=== PATIENT | female | born 1980 | race Two or more races ===

== ENCOUNTER 2017-01-13 12:22 | Inpatient (IN) | payer OTHER ==
[~2017-01-13] VITALS: Ht 172.7 cm; Wt 84.9 kg
[2017-01-13] MEDS ORDERED: PRIS50TA PO (12:37)
[2017-01-13] MEDS ORDERED: LEVO50TA5 PO (12:37)
[2017-01-13] MEDS ORDERED: ZOLP6.25 PO (12:37)
[2017-01-13 14:17] LABS: MEAN CORPUSCULAR HEMOGLOBIN 30.8 pg (27.0-33.0); MEAN CORPUSCULAR HGB CONC 34.6 g/dl (32.0-36.5); MEAN CORPUSCULAR VOLUME 89.1 fl (80.0-96.0); RED CELL DISTRIBUTION WIDTH 12.5 % (11.5-14.5); WHITE BLOOD COUNT 4.9 K/mm3 (4.0-10.0)
[2017-01-13 14:34] LABS: CONTROL LINE HCG INT CTR LINE PRESENT; METHADONE URINE NEGATIVE (NEGATIVE)
[2017-01-13 14:52] LABS: ALBUMIN 3.8 GM/DL (3.2-5.2); ALBUMIN/GLOBULIN RATIO 1.03 (1.00-1.93); ALKALINE PHOSPHATASE 55 U/L (45-117); ALT/SGPT 16 U/L (12-78); ANION GAP 10 MEQ/L (8-16); AST/SGOT 18 U/L (15-37); BILIRUBIN,DIRECT < 0.1 MG/DL (0.0-0.2); BILIRUBIN,TOTAL 0.3 MG/DL (0.2-1.0); BLOOD UREA NITROGEN 9 MG/DL (7-18); CALCIUM LEVEL 8.5 MG/DL (8.5-10.1); CARBON DIOXIDE LEVEL 23 MEQ/L (21-32); CHLORIDE LEVEL 107 MEQ/L (98-107); CREATININE FOR GFR 0.81 MG/DL (0.55-1.02); GLOMERULAR FILTRATION RATE > 60.0 (>60); GLUCOSE, FASTING 86 MG/DL (70-105); POTASSIUM SERUM 3.8 MEQ/L (3.5-5.1); SODIUM LEVEL 140 MEQ/L (136-145); TOTAL PROTEIN 7.5 GM/DL (6.4-8.2)
[2017-01-13] MEDS ORDERED: CLON0.25 PO (14:58)
[2017-01-13] MEDS ORDERED: LEVO0.1T PO (14:58)
[2017-01-13] MEDS: clonazePAM 0.5 MG TAB PO SCH (21:00)
[2017-01-13 22:57] VITALS: BP 158/98
[2017-01-13] MEDS ORDERED: MAALOX 30 ML SUSP *UDC PO PRN (23:00)
[2017-01-13] MEDS ORDERED: MOM 30ML SUSPENSION UDC PO PRN (23:00)
[2017-01-13] MEDS ORDERED: ACETAMINOPHEN TAB 650MG DOSE (2X325MG) PO PRN (23:00)
[2017-01-13 23:34] VITALS: BP 158/98
[2017-01-13] MEDS: traZODone 50 MG TAB PO PRN (23:59)
[2017-01-13] MEDS: THIAMINE 100 MG TAB PO SCH (23:59)
[2017-01-14] MEDS ORDERED: LORazepam 2 MG TAB PO PRN
[2017-01-14] MEDS: LEVOTHYROXINE 50MCG TABLET (0.05MG) PO SCH (06:39)
[2017-01-14] MEDS: clonazePAM 0.5 MG TAB PO SCH ×2 (08:47→21:00)
[2017-01-14] MEDS: MULTIVITAMINS/MINERALS THERAP 1 TAB PO SCH (08:48)
[2017-01-14] MEDS: DESVENLAFAXINE ER 50 MG TABLET (PRISTIQ) PO SCH (08:48)
[2017-01-14] MEDS: THIAMINE 100 MG TAB PO SCH ×2 (08:48→21:30)
[2017-01-14] MEDS: FOLIC ACID 1 MG TAB PO SCH (08:48)
[2017-01-14 09:18] VITALS: BP 154/93
--- NOTE | 2017-01-14 10:16 | HPEPDOC ---
Medical History and Physical Date of Admission Jan 13, 2017 at 20:00 History and Physical PCP: [facility]. ATTENDING: Dr. Jaron Menchaca HPI: 36 yo F admitted to [facility] for unspecified depressive disorder, being medically examined today. No acute medical complaints today. Denies any fevers, chills, weakness, fatigue, KISER, CP, SOB, cough, palpitations, abdominal pain, N/V /D or changes in bowel or bladder habits. 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 ROS: As noted in HPI, otherwise 11pt ROS of systems reviewed and remarkable only for LMP 12/30/16 PE: GEN: 36 yo F, appears stated age. Well-nourished, well developed. No acute distress. Alert and oriented x 3. Pleasant, interactive. HEENT: Normocephalic, atraumatic. Pupils are equal, round, and reactive to light. Extraocular movements are intact. No nystagmus appreciated. Sclera are nonicteric. Conjunctiva without injection. Nose midline. Nasal turbinates without bogginess. EACs both patent BL. TMs both visualized and melton with good cone of light, no bulging or erythema. No facial asymmetry. Moist mucous membranes. Dentition fair. Pharynx pink and moist, no cobblestoning. Neck supple , trachea midline. No lymphadenopathy or thyromegaly appreciated. CHEST: Regular rate and rhythm, +S1, +S2 LUNGS: Clear to auscultation bilaterally. No wheezes, rales, or rhonchi. Breathing appears symmetric and easy. Patient is speaking in full sentences. No accessory muscle use. ABD: Round, soft, non-tender, non-distended. +Bowel sounds throughout. No rebound or guarding. No costovertebral angle tenderness. EXT: Pulses 2+ bilaterally dorsalis pedis and radial. No lower extremity edema appreciated. SKIN: [place], dry, warm. Capillary refill <2sec. No rashes. NEURO: Alert and oriented x 3. Cranial nerves III-XII are intact. No focal deficits appreciated. EKG: Pending. A&P: 36 yo F admitted to [facility] for unspecified depressive disorder 1. Psych. Plan per Psychiatry. Obtain baseline EKG to assure the safety of psychiatric medications as they can prolong the QT interval. 2. Continue OCP 3. Hypothyroidism. Continue Synthroid 50 g daily. 4. Follow up with PCP on discharge. 5. Heidi RN present throughout exam. Vital Signs Vital Signs Date Time Temp Pulse Resp B/P (MAP) Pulse Ox O2 Delivery O2 Flow Rate FiO2 01/14/17 09:18 94 18 154/93 (113) 01/13/17 22:57 98.4 Room Air 01/13/17 19:11 100 Laboratory Data Labs 24H Laboratory Tests 2 01/13/17 13:37: Anion Gap 10, Glomerular Filtration Rate > 60.0, Calcium Level 8.5, Aspartate Amino Transf (AST/SGOT) 18, Alanine Aminotransferase (ALT/SGPT) 16, Alkaline Phosphatase 55, Total Bilirubin 0.3, Direct Bilirubin < 0.1, Total Protein 7.5, Albumin 3.8, Albumin/Globulin Ratio 1.03, Thyroid Stimulating Hormone (TSH) 2.240, Human Chorionic Gonadotropin, Qual NEGATIVE, Salicylates Level < 1.7L, Urine Amphetamines Screen NEGATIVE, Urine Benzodiazepines Screen NEGATIVE, Urine Opiates Screen NEGATIVE, Urine Methadone Screen NEGATIVE, Acetaminophen Level < 2.0L, Urine Barbiturates Screen NEGATIVE, Urine Phencyclidine Screen NEGATIVE, Urine Cocaine Metabolite Screen NEGATIVE, Urine Cannabinoids Screen NEGATIVE, Ethyl Alcohol Level 0.146H CBC/BMP Laboratory Tests 01/13/17 13:37 Red Blood Count 4.50, Mean Corpuscular Volume 89.1, Mean Corpuscular Hemoglobin 30.8, Mean Corpuscular Hemoglobin Concent 34.6, Red Cell Distribution Width 12.5 Home Medications Scheduled (Levonorgestrel/Ethinyl Es 0.1-20 mg-Mcg) 1 Tab Tab, 1 TAB PO DAILY Clonazepam (Clonazepam Odt) 0.25 Mg Tab, 0.25 MG PO BID Desvenlafaxine Succinate Monoh (Pristiq) 50 Mg Tab, 50 MG PO DAILY Levothyroxine Sodium (Synthroid) 50 Mcg Tab, 50 MCG PO DAILY Zolpidem Tartrate (Zolpidem Tartrate ER) 6.25 Mg Tab, 6.25 MG PO QHS Allergies Coded Allergies: Latex (Verified Allergy, Severe, swelling, 01/13/17) Kimberly Ayala Jan 14, 2017 10:16
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
[2017-01-14 18:00] VITALS: BP 148/90
[2017-01-14 21:30] VITALS: BP 148/90
[2017-01-14] MEDS: traZODone 50 MG TAB PO PRN (21:30)
[2017-01-15] MEDS: LEVOTHYROXINE 50MCG TABLET (0.05MG) PO SCH (06:05)
[2017-01-15 06:51] VITALS: BP 148/96
[2017-01-15] MEDS: THIAMINE 100 MG TAB PO SCH ×2 (08:35→22:17)
[2017-01-15] MEDS: FOLIC ACID 1 MG TAB PO SCH (08:35)
[2017-01-15] MEDS: DESVENLAFAXINE ER 50 MG TABLET (PRISTIQ) PO SCH (08:35)
[2017-01-15] MEDS: MULTIVITAMINS/MINERALS THERAP 1 TAB PO SCH (08:35)
[2017-01-15] MEDS: clonazePAM 0.5 MG TAB PO SCH ×2 (08:36→21:00)
[2017-01-15] MEDS ORDERED: LEVONORGESTREL PO SCH (09:00)
[2017-01-15] MEDS ORDERED: ETHINYL ESTRADIOL PO SCH (09:00)
[2017-01-15 12:49] VITALS: BP 134/85
[2017-01-15 18:00] VITALS: BP 158/80
--- NOTE | 2017-01-15 18:46 | ECGEPIP ---
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 Similar to 05/09/13. Caution would be advised with the use of any medication that may further prolong his QT interval. Electronically Signed On 01-15-2017 18:46:04 EDT by Ramin Alvarez
--- NOTE | 2017-01-15 19:13 | IPN ---
DATE: 01/15/2017 VITAL SIGNS: Temperature 96.4, pulse 74, respirations 16, blood pressure 134/85. CURRENT MEDICATIONS: - Pristiq 50 mg every morning - trazodone 50 mg at bedtime as needed HISTORY OF PRESENT ILLNESS: This is a 35-year-old white female with history of major depression. The patient reports that she had multiple stressors leading up to her hospitalization. She does like the Pristiq and she trusts it, and she has been on it for six years since her father . She feels comfortable with the trazodone for sleep as well. The patient is attending the groups. She is showing more insight into the need to set limits at home with friends and family members to reduce her stressors. MENTAL STATUS EXAMINATION: The patient is alert, oriented and cooperative. The patient is moderately anxious, mildly depressed. Not voicing any suicidal thoughts today. Insight and judgment seen improved. No current signs of dangerousness. No signs of psychosis. Grooming and hygiene appear quite good. No signs of memory deficits. DIAGNOSIS: Major depression, recurrent. PLAN: Continue present management.
[2017-01-15] MEDS: traZODone 50 MG TAB PO PRN (22:17)
[2017-01-16] MEDS: LEVOTHYROXINE 50MCG TABLET (0.05MG) PO SCH (05:59)
[2017-01-16 06:21] VITALS: BP 131/86
[2017-01-16] MEDS: FOLIC ACID 1 MG TAB PO SCH (08:23)
[2017-01-16] MEDS: DESVENLAFAXINE ER 50 MG TABLET (PRISTIQ) PO SCH (08:23)
[2017-01-16] MEDS: MULTIVITAMINS/MINERALS THERAP 1 TAB PO SCH (08:23)
[2017-01-16] MEDS: THIAMINE 100 MG TAB PO SCH (08:23)
[2017-01-16] MEDS: clonazePAM 0.5 MG TAB PO SCH ×2 (08:27→21:00)
[2017-01-16 14:36] VITALS: BP 140/86
--- NOTE | 2017-01-16 15:50 | IPN ---
DATE: 01/16/2017 VITAL SIGNS: Temperature 98.3, pulse 83, respirations 16, blood pressure 140/86. CURRENT MEDICATIONS: - Pristiq 50 mg every morning - trazodone 50 mg at bedtime as needed HISTORY OF PRESENT ILLNESS: Patient's family is coming to visit. They are quite supportive. Her boyfriend has been in to visit, too. He is also quite supportive. She reports her mood better. Patient requests her personal clothing. The order is to be given. Patient feels hopeful about the future. Patient has been attending the therapy program here on the unit. She has no other complaints. MENTAL STATUS EXAMINATION: Mood appears improved. Patient less anxious. Patient less depressed. She is not suicidal. Insight and judgment appears quite good today. No signs of dangerousness. She is not psychotic. Grooming and hygiene are good. No signs of impulsivity. DIAGNOSIS: Major depression, recurrent. PLAN: Continue present management.
[2017-01-16 18:00] VITALS: BP 150/88
[2017-01-16] MEDS: traZODone 50 MG TAB PO PRN (21:49)
[2017-01-17 06:00] VITALS: BP 141/90
[2017-01-17] MEDS: LEVOTHYROXINE 50MCG TABLET (0.05MG) PO SCH (06:01)
[2017-01-17] MEDS: DESVENLAFAXINE ER 50 MG TABLET (PRISTIQ) PO SCH (08:03)
[2017-01-17] MEDS: clonazePAM 0.5 MG TAB PO SCH ×2 (08:03→21:00)
[2017-01-17] MEDS: MULTIVITAMINS/MINERALS THERAP 1 TAB PO SCH (08:03)
[2017-01-17] MEDS: FOLIC ACID 1 MG TAB PO SCH (08:03)
--- NOTE | 2017-01-17 09:03 | MHIPNPDOC ---
[facility] Progress Note Progress Note DATE OF SERVICE: 01/17/17 HISTORY: Patient is a 36-year-old female who was brought to the emergency room by her mother and informed ER staff that she had not been able to sleep so took one dose of Ambien at 22:00, indicated medication was ineffective so took second dose at 05:00, adds she does not remember events which followed but states she made breakfast for her children and at 11:30 AM had a glass of wine, notes an additional 2 pills were missing from med vial and she is uncertain as to whether she took those as well. Per ER report, patient's mother indicated that patient experiences challenges related to alcohol use and she expressed concern for patient's children. According to patient's family, patient is a poor historian and "gets angry and mean very quickly." Patient denies history of suicide attempts and denies history of prior psychiatric hospitalization. Manager Meeting met with patient today to assess treatment progress on inpatient unit. Patient reports current anxiety level of 2/10, denies depression, denies suicidal and homicidal ideation, denies auditory and visual hallucinations, denies urge to engage in self-injurious behavior, and denies eating disorder related symptoms. Patient had meeting with CPS today and was informed of concerns related to children being in her care, verbalizes some insight as to seriousness of her behavior and events which preceded current hospitalization. Patient states she is sleeping well, indicates appetite is stable, notes concentration and focus and energy levels have improved. Patient denies symptoms of craving or withdrawal and has not utilized Klonopin or Ativan over the weekend. Manager Meeting was informed by LUIS the patient's EKG indicates prolonged QTc. Patient indicates Pristiq continues to work well, denies medication side effects, denies need for dosing adjustment, declines medication change. Patient was in agreement with discontinuation of trazodone and is requesting Rozerem trial in effort to continue improved sleep. Patient is asymptomatic, denies headache, chest pain, dizziness, palpitations, and shortness of breath. Potential risks of psychotropic medications were reviewed with patient who verbalized understanding and indicates symptoms of palpitation preexisted psychotropic medication trial. Patient denies symptoms of physical pain and presents with no signs of acute distress at time of interaction. I-Stop review completed on admission, patient regularly fills prescriptions for Ambien and Klonopin and periodically fills prescriptions for Xanax, tramadol and Tylenol with codeine. Patient states she does not take aforementioned medications regularly. VITALS: See below NEW TEST RESULTS: 01/15/17 and glucose 113 MEDICAL/SURGICAL HISTORY: ITP platelet disorder, hypothyroidism, GERD. 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 Patient denies history of seizure or head injury. Patient states she recently experienced a miscarriage and has a history of obesity. Patient also indicates her physician is monitoring her for hypertension, has not been diagnosed and has not been receiving treatment for hypertension Labs on admission indicated low PLT. UDS negative. Patient was educated on risks of psychotropic medications to unborn child should she become while taking medications and was strongly encouraged to utilize control while taking psychotropic medications. EToH 0.146 01/14/17 EKG normal sinus rhythm with isolated PVC marginal inferoapical ST/T wave abnormalities and QT prolongation. Similar to 05/09/13. Caution would be advised to use of any medication that may further prolong his QT interval. Clinical consultation completed and results reviewed patient. Patient is asymptomatic, indicates she wants to remain on Pristiq but is agreeable to discontinuation of trazodone and Rozerem trial, verbalizes awareness that she will need to follow up with outpatient provider for ongoing monitoring. CURRENT MEDICATIONS: See below MENTAL STATUS EXAMINATION: General appearance: Patient is a 36-year old female, who is pleasant and cooperative, engageable, makes improved eye contact, appears disheveled, is dressed in hospital clothing, ambulates with steady gait, appears stated age. Speech: Of normal rate, mildly pressured, normal volume, coherent, less rehearsed today. Thought processes: Linear, logical, rational, goal-directed Thought content: Rational, logical, mild tangentiality, no paranoia or perseveration Abstract reasoning and computation: Appear intact Description of associations: Intact Description of abnormal or psychotic thoughts: Denies suicidal or homicidal ideation, denies auditory or visual hallucinations, does not appear to be responding to internal stimuli, does not endorse bizarre or paranoid ideation, denies preoccupation with violence Judgment: Limited, some improvement noted Insight: Fair, some improvement noted Orientation: A and O 3 Recent and remote memory: Appeared intact with exception of events which preceded current hospitalization Attention span and concentration: Adequate Fund of knowledge: Adequate Mood: "Much better, and I really miss my kids." Patient appears less anxious and less depressed, no mood lability noted Affect: Full range, congruent with mood DIAGNOSES: Unspecified depressive disorder, polysubstance use disorder, rule out major depressive disorder, rule out anxiety disorder, rule out OCD, rule out substance-induced mood disorder, rule out psychiatric disorder due to adverse drug reaction, rule out bipolar disorder. Bulimia by history ASSESSMENT: Patient appears to be adjusting to unit, has been visible, engaging well with staff and peers, participating in unit activities, and has presented with no behavior management challenges. Patient continues to rationalize events and behavior which led to current hospitalization, displays less minimization today regarding substance use/abuse , expresses increased insight pertaining to behavior and potential impact on family, children, career. Patient remains unable to remember events which preceded current hospitalization, appears to be placing much of the blame on outpatient provider, states today she wants new provider at time of discharge. Patient has not needed to utilize benzodiazepines over weekend, indicates Pristiq remains effective, reiterates she has been taking for 6 years, denies medication side effects, denies need for dosing adjustment, and denies desire to change medication. Results of recent EKG were reviewed at length with patient verbalizes understanding and agrees to follow-up with outpatient provider. Patient is agreeable to discontinuation of trazodone due to risk for prolonged QTc, will trial Rozerem PRN for sleep. Patient denies symptoms of craving or withdrawal, denies irritability, agitation, impulsivity, and mood lability. Patient denies current suicidal or homicidal ideation and verbalizes awareness of how to access supportive services on the unit if needed. Will continue to monitor patient's response to medications and will monitor for medication side effects. Will also evaluate patient's safety and discharge readiness. Patient informs assembly instructions writer today that patient's boyfriend and mother have removed all alcohol and unused medications from the home reiterates today that when prepared for discharge she would like to return home with boyfriend and children, is agreeable to participating in outpatient psychotherapy and medication management services. MANAGEMENT PLAN: Discontinue trazodone. Continue Pristiq 50 mg po q am. Initiate Rozerem 8 mg po hs PRN insomnia Maintain safety precautions Patient to attend groups and participate in unit programming to develop coping strategies Engage patient in discharge planning process and arrange meeting with support system to ensure safe discharge planning when appropriate Patient to follow up with PCM regarding recent EKG results and any other health concerns within 5-7 days of discharge TIME SPENT: 35 minutes Vital Signs Vital Signs Date Time Temp Pulse Resp B/P (MAP) Pulse Ox O2 Delivery O2 Flow Rate FiO2 01/17/17 06:00 98.3 92 16 141/90 (107) 01/14/17 18:00 Room Air 01/13/17 19:11 100 Current Medications Current Medications Acetaminophen (Tylenol Tab) 650 mg Q6HP PRN PO HEADACHE or DISCOMFORT; Start at 23:00; Stop 02/12/17 at 22:59 Al Hydrox/Mg Hydrox/Simethicone (Mylanta) 30 ml Q4HP PRN PO HEARTBURN/ INDIGESTION; Start 01/13/17 at 23:00; Stop 02/12/17 at 22:59 Clonazepam (KlonoPIN) 0.25 mg BID PO Last administered on 01/14/17 08:47; Start 01/13/17 at 21:00; Stop 01/20/17 at 20:59 Desvenlafaxine Succinate (Pristiq) 50 mg DAILY PO Last administered on 08:03; Start 01/14/17 at 09:00; Stop 02/13/17 at 08:59 Folic Acid (Folic Acid) 1 mg DAILY PO Last administered on 01/17/17 08:03; Start 01/14/17 at 09:00; Stop 02/13/17 at 08:59 Home Med (Med Rec Complete!) ASDIRECTED XX ; Start 01/13/17 at 15:00; Stop at 15:02; Status DC Levothyroxine Sodium (Synthroid) 50 mcg DAILY@06 PO Last administered on 06:01; Start 01/14/17 at 06:00; Stop 02/13/17 at 05:59 Lorazepam (Ativan) 2 mg ASDIRECTED PRN PO SEE PROTOCOL; Start 01/14/17 at 00:00 ; Stop 01/21/17 at 00:00 Magnesium Hydroxide (Milk Of Magnesia) 30 ml DAILYPRN PRN PO CONSTIPATION; Start 01/13/17 at 23:00; Stop 02/12/17 at 22:59 Miscellaneous (Unresolved Patient Own Med Order) SEE LABEL COMMENTS UNRESOLVED XX ; Start 01/14/17 at 00:01; Stop 02/13/17 at 00:00 Multivitamins (Theragram-M) 1 tab DAILY PO Last administered on 01/17/17 08:03 ; Start 01/14/17 at 09:00; Stop 02/13/17 at 08:59 Patient Own Medication (Patient'S Own Med) 1 ea DAILY PO ; Start 01/15/17 at 09: 00; Stop 02/14/17 at 08:59; Status UNV Thiamine HCl (Thiamine HCl) 100 mg BID PO Last administered on 01/16/17 08:23 ; Start 01/13/17 at 21:00; Stop 01/16/17 at 09:01; Status DC Trazodone HCl (Desyrel) 50 mg QHSP PRN PO INSOMNIA Last administered on 21:49; Start 01/13/17 at 23:00; Stop 02/12/17 at 22:59 Allergies Coded Allergies: Latex (Verified Allergy, Severe, swelling, 01/13/17) Yumiko Mariscal Jan 17, 2017 09:02
[2017-01-17 12:00] VITALS: BP 138/88
[2017-01-17 18:00] VITALS: BP 122/92
--- NOTE | 2017-01-17 19:28 | ECGEPIP ---
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
[2017-01-17] MEDS: RAMELTEON 8 MG TAB (ROZEREM) PO PRN (21:51)
[2017-01-18] MEDS: LEVOTHYROXINE 50MCG TABLET (0.05MG) PO SCH (06:03)
[2017-01-18 06:41] VITALS: BP 137/85
[2017-01-18] MEDS: FOLIC ACID 1 MG TAB PO SCH (08:30)
[2017-01-18] MEDS: MULTIVITAMINS/MINERALS THERAP 1 TAB PO SCH (08:30)
[2017-01-18] MEDS: DESVENLAFAXINE ER 50 MG TABLET (PRISTIQ) PO SCH (08:30)
[2017-01-18] MEDS: clonazePAM 0.5 MG TAB PO SCH (08:31)
[2017-01-18 12:24] VITALS: BP 131/97
--- NOTE | 2017-01-18 17:27 | MHIPNPDOC ---
[facility] Progress Note Progress Note DATE OF SERVICE: 01/18/17 HISTORY: Patient is a 36-year-old female who was brought to the emergency room by her mother and informed ER staff that she had not been able to sleep so took one dose of Ambien at 22:00, indicated medication was ineffective so took second dose at 05:00, adds she does not remember events which followed but states she made breakfast for her children and at 11:30 AM had a glass of wine, notes an additional 2 pills were missing from med vial and she is uncertain as to whether she took those as well. Per ER report, patient's mother indicated that patient experiences challenges related to alcohol use and she expressed concern for patient's children. According to patient's family, patient is a poor historian and "gets angry and mean very quickly." Patient denies history of suicide attempts and denies history of prior psychiatric hospitalization. Real Estate Coordinator met with patient today to assess treatment progress on inpatient unit. Patient denies symptoms of anxiety and depression, denies suicidal and homicidal ideation, denies auditory and visual hallucinations, denies urge to engage in self-injurious behavior, and denies eating disorder-related symptoms. Patient is able to express feelings related to recent CPS meeting, verbalizes sincere concern regarding recent events involving children, states she is motivated to do whatever CPS asks in order for her to regain custody of her children. Patient today is able to verbalize insight as to seriousness of her behavior and events which preceded current hospitalization. Patient indicates she is sleeping well with Rozerem, notes appetite, concentration and focus, and energy level are stable. Patient denies symptoms of craving or withdrawal and has not utilized Klonopin or Ativan over the weekend. Real Estate Coordinator was informed by LUIS the patient's EKG indicates prolonged QTc, trazodone was discontinued. Patient indicates Pristiq continues to work well, denies medication side effects, denies need for dosing adjustment, declines medication change, verbalizes possible association with prolonged QTC. Patient is asymptomatic, denies headache, chest pain, dizziness, palpitations, and shortness of breath. Potential risks of psychotropic medications were reviewed with patient who verbalized understanding and indicates symptoms of palpitation preexisted psychotropic medication trial. Patient denies symptoms of physical pain and presents with no signs of acute distress at time of interaction. I-Stop review completed on admission, patient regularly fills prescriptions for Ambien and Klonopin and periodically fills prescriptions for Xanax, tramadol and Tylenol with codeine. Patient states she does not take aforementioned medications regularly. VITALS: See below NEW TEST RESULTS: 01/15/17 and glucose 113 MEDICAL/SURGICAL HISTORY: ITP platelet disorder, hypothyroidism, GERD. 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 Patient denies history of seizure or head injury. Patient states she recently experienced a miscarriage and has a history of obesity. Patient also indicates her physician is monitoring her for hypertension, has not been diagnosed and has not been receiving treatment for hypertension Labs on admission indicated low PLT. UDS negative. Patient was educated on risks of psychotropic medications to unborn child should she become while taking medications and was strongly encouraged to utilize control while taking psychotropic medications. EToH 0.146 01/14/17 EKG normal sinus rhythm with isolated PVC marginal inferoapical ST/T wave abnormalities and QT prolongation. Similar to 05/09/13. Caution would be advised to use of any medication that may further prolong his QT interval. Clinical consultation completed and results reviewed patient. Patient is asymptomatic, indicates she wants to remain on Pristiq but is agreeable to discontinuation of trazodone and Rozerem initiation, verbalizes awareness that she will need to follow up with outpatient provider for ongoing monitoring. 01/17/17 EKG sinus rhythm normal CURRENT MEDICATIONS: See below MENTAL STATUS EXAMINATION: General appearance: Patient is a 36-year old female, who is pleasant and cooperative, engageable, makes good eye contact, and exhibits adequate personal hygiene, is dressed in own clothing, ambulates with steady gait, appears stated age. Speech: Of normal rate, rhythm, volume, coherent, spontaneous, does not sound rehearsed today Thought processes: Linear, logical, rational, goal-directed Thought content: Rational, logical, mild intermittent tangentiality, no paranoia or perseveration Abstract reasoning and computation: Appear intact Description of associations: Intact Description of abnormal or psychotic thoughts: Denies suicidal or homicidal ideation, denies auditory or visual hallucinations, does not appear to be responding to internal stimuli, does not endorse bizarre or paranoid ideation, denies preoccupation with violence Judgment: Fair, some improvement noted Insight: Fair, continues to improve Orientation: A and O 3 Recent and remote memory: Appeared intact with exception of events which preceded current hospitalization Attention span and concentration: Adequate Fund of knowledge: Adequate Mood: "Much better; I feel good, I miss my kids, and I'm ready to go home." Patient denies symptoms of anxiety and depression, no mood lability noted Affect: Full range, brightens frequently and appropriately, congruent with mood DIAGNOSES: Unspecified depressive disorder, polysubstance use disorder, rule out major depressive disorder, rule out anxiety disorder, rule out OCD, rule out substance-induced mood disorder, rule out psychiatric disorder due to adverse drug reaction, rule out bipolar disorder. Bulimia by history ASSESSMENT: Patient appears to be adjusting to unit, has been visible, engaging well with staff and peers, participating in unit activities, and has presented with no behavior management challenges. Patient is no longer rationalizing events or behavior which led to current hospitalization, is no longer minimizing substance use/abuse, expresses increased insight pertaining to behavior and potential impact on family, children, career. Patient remains unable to remember events which preceded current hospitalization, is today able to except blame for events and is no longer placing blame on outpatient provider, reiterates she would like new provider at time of discharge. Patient has not needed to utilize benzodiazepines for several days, indicates Pristiq remains effective, reiterates she has been taking for 6 years, denies medication side effects, denies need for dosing adjustment, and denies desire to change medication. Results of updated EKG were reviewed with patient who verbalizes understanding that she will still need to follow-up with outpatient provider for ongoing evaluation and monitoring. Patient indicates Rozerem worked well for sleep and is requesting small quantity at discharge, denies need for prescription for Pristiq indicating she has medication at home. Patient denies symptoms of craving or withdrawal, denies irritability, agitation, impulsivity, and mood lability. Patient denies current suicidal or homicidal ideation and verbalizes awareness of how to access supportive services on the unit if needed. Will continue to monitor patient's response to medications and will monitor for medication side effects. Will also evaluate patient's safety and will prepare patient for discharge which is scheduled for tomorrow. Patient reiterates today that patient's boyfriend and mother have removed all alcohol and unused medications from the home, indicates discharge plan remains for her to return home with boyfriend and children, remains agreeable to participating in outpatient psychotherapy and medication management services. MANAGEMENT PLAN: Continue Pristiq 50 mg po q am and Rozerem 8 mg po hs PRN insomnia Maintain safety precautions Patient to attend groups and participate in unit programming to develop coping strategies Engage patient in discharge planning process and arrange meeting with support system to ensure safe discharge planning when appropriate Patient to follow up with PCM regarding recent EKG results and any other health concerns within 5-7 days of discharge TIME SPENT: 35 minutes Vital Signs Vital Signs Date Time Temp Pulse Resp B/P (MAP) Pulse Ox O2 Delivery O2 Flow Rate FiO2 01/18/17 12:24 97 16 131/97 (108) 01/18/17 06:41 97.1 01/14/17 18:00 Room Air 01/13/17 19:11 100 Current Medications Current Medications Acetaminophen (Tylenol Tab) 650 mg Q6HP PRN PO HEADACHE or DISCOMFORT; Start at 23:00; Stop 02/12/17 at 22:59 Al Hydrox/Mg Hydrox/Simethicone (Mylanta) 30 ml Q4HP PRN PO HEARTBURN/ INDIGESTION; Start 01/13/17 at 23:00; Stop 02/12/17 at 22:59 Clonazepam (KlonoPIN) 0.25 mg BID PO Last administered on 01/14/17 08:47; Start 01/13/17 at 21:00; Stop 01/20/17 at 20:59 Desvenlafaxine Succinate (Pristiq) 50 mg DAILY PO Last administered on 08:30; Start 01/14/17 at 09:00; Stop 02/13/17 at 08:59 Folic Acid (Folic Acid) 1 mg DAILY PO Last administered on 01/18/17 08:30; Start 01/14/17 at 09:00; Stop 02/13/17 at 08:59 Home Med (Med Rec Complete!) ASDIRECTED XX ; Start 01/13/17 at 15:00; Stop at 15:02; Status DC Levothyroxine Sodium (Synthroid) 50 mcg DAILY@06 PO Last administered on 06:03; Start 01/14/17 at 06:00; Stop 02/13/17 at 05:59 Lorazepam (Ativan) 2 mg ASDIRECTED PRN PO SEE PROTOCOL; Start 01/14/17 at 00:00 ; Stop 01/21/17 at 00:00 Magnesium Hydroxide (Milk Of Magnesia) 30 ml DAILYPRN PRN PO CONSTIPATION; Start 01/13/17 at 23:00; Stop 02/12/17 at 22:59 Miscellaneous (Unresolved Patient Own Med Order) SEE LABEL COMMENTS UNRESOLVED XX ; Start 01/14/17 at 00:01; Stop 01/17/17 at 11:30; Status DC Multivitamins (Theragram-M) 1 tab DAILY PO Last administered on 01/18/17 08:30 ; Start 01/14/17 at 09:00; Stop 02/13/17 at 08:59 Patient Own Medication (Patient'S Own Med) 1 ea DAILY PO ; Start 01/15/17 at 09: 00; Stop 01/17/17 at 11:30; Status DC Ramelteon (Rozerem) 8 mg QHSP PRN PO insomnia Last administered on 01/17/17 21 :51; Start 01/17/17 at 14:45; Stop 02/16/17 at 14:44 Thiamine HCl (Thiamine HCl) 100 mg BID PO Last administered on 01/16/17 08:23 ; Start 01/13/17 at 21:00; Stop 01/16/17 at 09:01; Status DC Trazodone HCl (Desyrel) 50 mg QHSP PRN PO INSOMNIA Last administered on 21:49; Start 01/13/17 at 23:00; Stop 01/17/17 at 13:36; Status DC Allergies Coded Allergies: Latex (Verified Allergy, Severe, swelling, 01/13/17) Yumiko Mariscal Jan 18, 2017 17:27
[2017-01-18] MEDS ORDERED: clonazePAM 0.5 MG TAB PO PRN (17:30)
[2017-01-18] MEDS: RAMELTEON 8 MG TAB (ROZEREM) PO PRN (22:01)
[2017-01-19] MEDS: LEVOTHYROXINE 50MCG TABLET (0.05MG) PO SCH (06:25)
[2017-01-19 06:44] VITALS: BP 158/89
[2017-01-19] MEDS: DESVENLAFAXINE ER 50 MG TABLET (PRISTIQ) PO SCH (08:50)
[2017-01-19] MEDS: MULTIVITAMINS/MINERALS THERAP 1 TAB PO SCH (08:50)
[2017-01-19] MEDS: FOLIC ACID 1 MG TAB PO SCH (08:50)
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
[2017-01-19] MEDS ORDERED: ROZE8TAB16 PO (09:09)
[2017-01-19] MEDS ORDERED: PRIS50TA PO (10:45)
== END 2017-01-19 11:00 | disposition home or self-care (01) | DRG 881 ==
LOC: M ED 12:22 → M ED INP 20:00 → M PSY 22:57
PROVIDERS: ADMIT Psychiatry & Neurology Psychiatry; ATTEND Psychiatry & Neurology Psychiatry
DX: F32.9 Major depressive disorder, single episode, unspecified (principal); F50.2 Bulimia nervosa; F31.9 Bipolar disorder, unspecified; F19.94 Other psychoactive substance use, unspecified with psychoactive substance-induced mood disorder; F41.9 Anxiety disorder, unspecified; F42.9 Obsessive-compulsive disorder, unspecified; Z79.899 Other long term (current) drug therapy; G47.00 Insomnia, unspecified; E03.9 Hypothyroidism, unspecified; Z91.040 Latex allergy status; Z59.8 Other problems related to housing and economic circumstances

== ENCOUNTER → 2017-06-02 | Outpatient (REF) | payer OTHER, BC ==
[~2017-06-02] MED LIST: CLON0.25 PO; LEVO0.1T PO; LEVO50TA5 PO; PRIS50TA PO; ROZE8TAB16 PO; ZOLP6.25 PO
== END ==
LOC: M LAB REF 13:44
PROVIDERS: ATTEND Physician Assistant Medical
DX: R31.9 Hematuria, unspecified (principal)

== ENCOUNTER → 2017-09-28 | Outpatient (REF) | payer OTHER, BC ==
[2017-09-28 18:58] LABS: APPEARANCE, URINE MANUAL CLEAR (CLEAR); BILIRUBIN, URINE MANUAL OBSCURED (NEGATIVE); BLOOD URINE MANUAL OBSCURED (NEGATIVE); COLOR, URINE MANUAL ORANGE (YELLOW); GLUCOSE, URINE (UA) MANUAL NEGATIVE (NEGATIVE); KETONE, URINE MANUAL OBSCURED mg/dL (NEGATIVE); LEUKOCYTE ESTERASE, URINE MAN OBSCURED (NEGATIVE); MICROSCOPIC INDICATED? MAN YES (NO); NITRITE, URINE MANUAL OBSCURED (NEGATIVE); PROTEIN, URINE MANUAL OBSCURED mg/dL (NEGATIVE); SPECIFIC GRAVITY,URINE MANUAL 1.017 (1.002-1.035); UROBILINOGEN, URINE MANUAL OBSCURED mg/dl (NORMAL)
[2017-09-28 19:02] LABS: BACTERIA, URINE NONE SEEN; CALCIUM OXALATE CRYSTALS,URINE LARGE AMOUNT /hpf; HYALINE CAST, URINE NONE SEEN /lpf (0-1); MUCUS, URINE SMALL AMOUNT (NEGATIVE); RBC, URINE 0-1 /hpf (0-3); SQUAMOUS EPITHELIAL CELL URINE SMALL AMOUNT /hpf (SMALL AMT)
[2017-09-28 19:03] LABS: MICROSCOPIC EXAM PERFORMED
== END ==
LOC: M LAB REF 16:52
DX: N39.0 Urinary tract infection, site not specified (principal)

== ENCOUNTER → 2017-10-04 | Outpatient (REF) | payer OTHER, BC ==
[2017-10-04 15:31] LABS: HEMATOCRIT 45.1 % (36.0-47.0); HEMOGLOBIN 15.8 g/dl (12.0-15.5); MEAN CORPUSCULAR HEMOGLOBIN 32.8 pg (27.0-33.0); MEAN CORPUSCULAR VOLUME 93.6 fl (80.0-96.0); PLATELET COUNT, AUTOMATED 220 10^3/uL (150-450); RED BLOOD COUNT 4.82 10^6/uL (4.00-5.40); RED CELL DISTRIBUTION WIDTH 12.8 % (11.5-14.5)
[2017-10-04 15:51] LABS: ALBUMIN/GLOBULIN RATIO 1.11 (1.00-1.93); ALKALINE PHOSPHATASE 71 U/L (45-117); ALT/SGPT 24 U/L (12-78); ANION GAP 10 MEQ/L (8-16); AST/SGOT 29 U/L (7-37); BILIRUBIN,TOTAL 0.8 MG/DL (0.2-1.0); BLOOD UREA NITROGEN 13 MG/DL (7-18); CALCIUM LEVEL 9.6 MG/DL (8.5-10.1); CARBON DIOXIDE LEVEL 22 MEQ/L (21-32); CHLORIDE LEVEL 107 MEQ/L (98-107); CREATININE FOR GFR 0.71 MG/DL (0.55-1.30); GLOMERULAR FILTRATION RATE > 60.0 (>60); GLUCOSE, FASTING 92 MG/DL (70-100); POTASSIUM SERUM 3.8 MEQ/L (3.5-5.1); SODIUM LEVEL 139 MEQ/L (136-145); TOTAL PROTEIN 7.6 GM/DL (6.4-8.2)
== END ==
LOC: M LABDRAW1 13:00
DX: D69.3 Immune thrombocytopenic purpura (principal); R00.2 Palpitations; E03.8 Other specified hypothyroidism

== ENCOUNTER → 2018-01-11 | Outpatient (REF) | payer OTHER, BC ==
[2018-01-11 18:24] LABS: APPEARANCE, URINE TURBID (CLEAR); BACTERIA, URINE AUTO 3+ (NEGATIVE); BILIRUBIN, URINE AUTO NEGATIVE (NEGATIVE); BLOOD, URINE BLOOD 3+ (NEGATIVE); COLOR, URINE AMBER (YELLOW); GLUCOSE, URINE (UA) AUTO NEGATIVE (NEGATIVE); KETONE, URINE AUTO TRACE mg/dL (NEGATIVE); LEUKOCYTE ESTERASE, URINE AUTO 2+ (NEGATIVE); MUCUS, URINE LARGE (NEGATIVE); NITRITE, URINE AUTO POSITIVE (NEGATIVE); PROTEIN, URINE AUTO 1+ mg/dL (NEGATIVE); RBC, URINE AUTO 4 /HPF (0-3); SPECIFIC GRAVITY URINE AUTO 1.024 (1.002-1.035); SQUAMOUS EPITHELIAL CELL UR AU 31 /HPF (0-6); UROBILINOGEN, URINE AUTO 0.2 mg/dL (0.0-2.0); WBC, URINE AUTO 69 /HPF (0-3)
== END ==
LOC: M LAB REF 17:16
DX: N39.0 Urinary tract infection, site not specified (principal)

== ENCOUNTER → 2018-04-06 | Outpatient (REF) | payer OTHER, BC ==
[2018-04-06 19:13] LABS: APPEARANCE, URINE CLEAR (CLEAR); BACTERIA, URINE AUTO NEGATIVE (NEGATIVE); BILIRUBIN, URINE AUTO NEGATIVE (NEGATIVE); BLOOD, URINE BLOOD 1+ (NEGATIVE); COLOR, URINE YELLOW (YELLOW); GLUCOSE, URINE (UA) AUTO NEGATIVE (NEGATIVE); KETONE, URINE AUTO TRACE mg/dL (NEGATIVE); LEUKOCYTE ESTERASE, URINE AUTO NEGATIVE (NEGATIVE); MUCUS, URINE SMALL (NEGATIVE); NITRITE, URINE AUTO NEGATIVE (NEGATIVE); PROTEIN, URINE AUTO NEGATIVE (NEGATIVE); RBC, URINE AUTO 1 /HPF (0-3); SPECIFIC GRAVITY URINE AUTO 1.021 (1.002-1.035); SQUAMOUS EPITHELIAL CELL UR AU 1 /HPF (0-6); UROBILINOGEN, URINE AUTO 0.2 mg/dL (0.0-2.0); WBC, URINE AUTO 0 /HPF (0-3)
== END ==
LOC: M LAB REF 17:41
DX: N39.0 Urinary tract infection, site not specified (principal)

== ENCOUNTER → 2018-05-11 | Outpatient (REF) | payer OTHER, BC ==
[2018-05-11 14:28] LABS: APPEARANCE, URINE CLEAR (CLEAR); BACTERIA, URINE AUTO 1+ (NEGATIVE); BILIRUBIN, URINE AUTO NEGATIVE (NEGATIVE); BLOOD, URINE BLOOD NEGATIVE (NEGATIVE); COLOR, URINE AMBER (YELLOW); GLUCOSE, URINE (UA) AUTO NEGATIVE (NEGATIVE); KETONE, URINE AUTO NEGATIVE (NEGATIVE); LEUKOCYTE ESTERASE, URINE AUTO NEGATIVE (NEGATIVE); MUCUS, URINE SMALL (NEGATIVE); NITRITE, URINE AUTO POSITIVE (NEGATIVE); PROTEIN, URINE AUTO NEGATIVE (NEGATIVE); RBC, URINE AUTO 0 /HPF (0-3); SPECIFIC GRAVITY URINE AUTO 1.021 (1.002-1.035); SQUAMOUS EPITHELIAL CELL UR AU 5 /HPF (0-6); WBC, URINE AUTO 7 /HPF (0-3)
== END ==
LOC: M LAB REF 13:37
DX: N39.0 Urinary tract infection, site not specified (principal)

== ENCOUNTER → 2018-07-17 | Outpatient (CLI) | payer OTHER, BC ==
--- NOTE | 2018-07-17 12:03 | REP ---
KUB, ONE VIEW: HISTORY: Abdominal pain. A small amount of air is present in the intestine. There are no air fluid levels or dilated loops of intestine. There is no pneumoperitoneum. An IUD is present in the pelvis. IMPRESSION: Nonspecific bowel gas pattern. Electronically Signed by Ney Maciel MD 07/17/2018 12:05 P
[2018-07-17 16:55] LABS: HCG, SERUM QUALITATIVE NEGATIVE (NEGATIVE)
[2018-07-17 17:03] LABS: ALT/SGPT 18 U/L (12-78); AMYLASE 46 U/L (25-115); BILIRUBIN,TOTAL 0.5 MG/DL (0.2-1.0); BLOOD UREA NITROGEN 9 MG/DL (7-18); CALCIUM LEVEL 8.8 MG/DL (8.5-10.1); CARBON DIOXIDE LEVEL 24 MEQ/L (21-32); CHLORIDE LEVEL 102 MEQ/L (98-107); CREATININE FOR GFR 0.61 MG/DL (0.55-1.30); GLOMERULAR FILTRATION RATE > 60.0 (>60); GLUCOSE, FASTING 93 MG/DL (70-100); LIPASE 94 U/L (73-393); POTASSIUM SERUM 3.6 MEQ/L (3.5-5.1); SODIUM LEVEL 139 MEQ/L (136-145); TOTAL PROTEIN 7.7 GM/DL (6.4-8.2)
[2018-07-17 17:11] LABS: BASO % 0.2 % (0.0-1.0); EOS % 0.2 % (0.0-3.0); HEMATOCRIT 43.8 % (36.0-47.0); HEMOGLOBIN 15.3 g/dl (12.0-15.5); LYMPH # 1.2 10^3/uL (1.5-4.5); LYMPH % 18.6 % (24.0-44.0); MEAN CORPUSCULAR HEMOGLOBIN 33.5 pg (27.0-33.0); MEAN CORPUSCULAR HGB CONC 34.9 g/dl (32.0-36.5); MEAN CORPUSCULAR VOLUME 95.8 fl (80.0-96.0); MONO # 0.5 10^3/uL (0.0-0.8); NEUTROPHILS # 4.5 10^3/uL (1.8-7.7); NEUTROPHILS % 72.5 % (36.0-66.0); RED BLOOD COUNT 4.57 10^6/uL (4.00-5.40); WHITE BLOOD COUNT 6.2 10^3/uL (4.0-10.0)
[2018-07-17 19:23] LABS: CHLAMYDIA DNA AMPLIFICATION NEGATIVE (NEGATIVE); GC DNA AMPLIFICATION NEGATIVE (NEGATIVE)
== END ==
LOC: M WUC 11:10
PROVIDERS: ATTEND Physician Assistant
DX: R10.84 Generalized abdominal pain (principal)

== ENCOUNTER → 2018-09-01 | Outpatient (CLI) | payer OTHER ==
[2018-09-01 17:26] LABS: BASO % 0.3 % (0.0-1.0); EOS % 0.3 % (0.0-3.0); HEMATOCRIT 43.9 % (36.0-47.0); HEMOGLOBIN 15.2 g/dl (12.0-15.5); LYMPH # 1.7 10^3/uL (1.5-4.5); LYMPH % 29.1 % (24.0-44.0); MEAN CORPUSCULAR HEMOGLOBIN 33.1 pg (27.0-33.0); MEAN CORPUSCULAR HGB CONC 34.6 g/dl (32.0-36.5); MEAN CORPUSCULAR VOLUME 95.6 fl (80.0-96.0); MONO # 0.6 10^3/uL (0.0-0.8); MONO % 10.2 % (0.0-5.0); NEUTROPHILS # 3.5 10^3/uL (1.8-7.7); NEUTROPHILS % 59.6 % (36.0-66.0); PLATELET COUNT, AUTOMATED 103 10^3/uL (150-450); RED BLOOD COUNT 4.59 10^6/uL (4.00-5.40); WHITE BLOOD COUNT 5.8 10^3/uL (4.0-10.0)
[2018-09-01 17:52] LABS: ALBUMIN 4.3 GM/DL (3.2-5.2); ALT/SGPT 19 U/L (12-78); BILIRUBIN,TOTAL 1.1 MG/DL (0.2-1.0); BLOOD UREA NITROGEN 12 MG/DL (7-18); CALCIUM LEVEL 9.1 MG/DL (8.5-10.1); CARBON DIOXIDE LEVEL 23 MEQ/L (21-32); CHLORIDE LEVEL 102 MEQ/L (98-107); FREE T4 0.82 NG/DL (0.76-1.46); GLOMERULAR FILTRATION RATE > 60.0 (>60); GLUCOSE, FASTING 93 MG/DL (70-100); POTASSIUM SERUM 4.2 MEQ/L (3.5-5.1); SODIUM LEVEL 137 MEQ/L (136-145); THYROGLOBULIN ANTIBODY 16.2 U/ML (<60.0); TOTAL PROTEIN 7.8 GM/DL (6.4-8.2)
== END ==
LOC: M SMT 14:12
PROVIDERS: ATTEND Physician Assistant
DX: E03.9 Hypothyroidism, unspecified (principal); D69.3 Immune thrombocytopenic purpura

== ENCOUNTER → 2018-12-01 | Outpatient (CLI) | payer OTHER, BC ==
[2018-12-01 17:58] LABS: BASO # 0.1 10^3/uL (0.0-0.2); BASO % 1.1 % (0.0-1.0); EOS % 0.8 % (0.0-3.0); HEMATOCRIT 38.7 % (36.0-47.0); HEMOGLOBIN 13.6 g/dl (12.0-15.5); LYMPH # 1.2 10^3/uL (1.5-4.5); LYMPH % 24.7 % (24.0-44.0); MEAN CORPUSCULAR HEMOGLOBIN 36.1 pg (27.0-33.0); MEAN CORPUSCULAR HGB CONC 35.1 g/dl (32.0-36.5); MEAN CORPUSCULAR VOLUME 102.7 fl (80.0-96.0); MONO # 0.4 10^3/uL (0.0-0.8); MONO % 8.6 % (0.0-5.0); NEUTROPHILS % 63.3 % (36.0-66.0); PLATELET COUNT, AUTOMATED 178 10^3/uL (150-450); RED BLOOD COUNT 3.77 10^6/uL (4.00-5.40); WHITE BLOOD COUNT 4.7 10^3/uL (4.0-10.0)
[2018-12-01 18:11] LABS: BLOOD UREA NITROGEN 11 MG/DL (7-18); CALCIUM LEVEL 8.1 MG/DL (8.5-10.1); CARBON DIOXIDE LEVEL 26 MEQ/L (21-32); CHLORIDE LEVEL 108 MEQ/L (98-107); CREATININE FOR GFR 0.75 MG/DL (0.55-1.30); FREE T4 1.14 NG/DL (0.76-1.46); GLOMERULAR FILTRATION RATE > 60.0 (>60); GLUCOSE, FASTING 85 MG/DL (70-100); POTASSIUM SERUM 4.2 MEQ/L (3.5-5.1); SODIUM LEVEL 142 MEQ/L (136-145); THYROID STIMULATING HORMONE 0.702 uIU/ML (0.358-3.740)
[2018-12-01 19:02] LABS: APPEARANCE, URINE CLEAR (CLEAR); BACTERIA, URINE AUTO NEGATIVE (NEGATIVE); BILIRUBIN, URINE AUTO NEGATIVE (NEGATIVE); BLOOD, URINE BLOOD NEGATIVE (NEGATIVE); COLOR, URINE STRAW (YELLOW); GLUCOSE, URINE (UA) AUTO NEGATIVE (NEGATIVE); KETONE, URINE AUTO NEGATIVE (NEGATIVE); LEUKOCYTE ESTERASE, URINE AUTO NEGATIVE (NEGATIVE); MUCUS, URINE SMALL (NEGATIVE); NITRITE, URINE AUTO NEGATIVE (NEGATIVE); PROTEIN, URINE AUTO NEGATIVE (NEGATIVE); RBC, URINE AUTO 0 /HPF (0-3); SPECIFIC GRAVITY URINE AUTO 1.009 (1.002-1.035); SQUAMOUS EPITHELIAL CELL UR AU 5 /HPF (0-6); UROBILINOGEN, URINE AUTO 0.2 mg/dL (0.0-2.0); WBC, URINE AUTO 1 /HPF (0-3)
== END ==
LOC: M SMT 14:06
PROVIDERS: ATTEND Physician Assistant
DX: N23 Unspecified renal colic (principal); E03.9 Hypothyroidism, unspecified

== ENCOUNTER 2019-08-17 04:46 | Emergency (ER) | payer BC, OTHER ==
[~2019-08-17] VITALS: Ht 172.7 cm; Wt 80.9 kg
[2019-08-17] MEDS ORDERED: LEVO88TA3 PO (04:58)
[2019-08-17] MEDS ORDERED: ONDANSETRON 4MG/2ML VIAL (J2405) IV ONE ×2 (05:15→07:45)
[2019-08-17] MEDS ORDERED: NS 1,000 ML IV ONE (05:15)
[2019-08-17 05:16] LABS: BASO % 0.8 % (0.0-1.0); EOS # 0.1 10^3/uL (0.0-0.5); EOS % 1.4 % (0.0-3.0); HEMATOCRIT 47.4 % (36.0-47.0); HEMOGLOBIN 16.7 g/dl (12.0-15.5); LYMPH # 2.1 10^3/uL (1.5-5.0); LYMPH % 40.9 % (24.0-44.0); MEAN CORPUSCULAR HEMOGLOBIN 33.7 pg (27.0-33.0); MEAN CORPUSCULAR HGB CONC 35.2 g/dl (32.0-36.5); MEAN CORPUSCULAR VOLUME 95.6 fl (80.0-96.0); MONO # 0.5 10^3/uL (0.0-0.8); MONO % 8.9 % (0.0-5.0); NEUTROPHILS # 2.5 10^3/uL (1.5-8.5); NEUTROPHILS % 47.6 % (36.0-66.0); RED BLOOD COUNT 4.96 10^6/uL (4.00-5.40); WHITE BLOOD COUNT 5.1 10^3/uL (4.0-10.0)
[2019-08-17] MEDS: MORPHINE 2 MG/ML 1ML VIAL (J2270) IV PRN ×2 (05:19→06:46)
[2019-08-17] MEDS ORDERED: ISOVUE-370 76% 100ML VIAL (Q9967) As Ordered ONE (05:27)
[2019-08-17 05:34] LABS: PLATELET COUNT, AUTOMATED 25 10^3/uL (150-450)
--- NOTE | 2019-08-17 05:53 | ECGEPIP ---
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
--- NOTE | 2019-08-17 06:19 | REPVR ---
PROCEDURE INFORMATION: Exam: CT Angiography Chest With Contrast Exam date and time: 08/17/2019 5:09 AM Age: 38 years old Clinical indication: Shortness of breath; Patient HX: Flu +; Additional info: Shortness of breath/pain TECHNIQUE: Imaging protocol: Computed tomographic angiography of the chest with intravenous contrast. 3D rendering: MIP and/or 3D reconstructed images were created by the technologist. Radiation optimization: All CT scans at this facility use at least one of these dose optimization techniques: automated exposure control; mA and/or kV adjustment per patient size (includes targeted exams where dose is matched to clinical indication); or iterative reconstruction. Contrast material: ISO; Contrast volume: 100 ml; Contrast route: AC; COMPARISON: CR Chest, 2 view PA, Lat 05/09/2013 3:33 PM FINDINGS: Pulmonary arteries: Normal. No pulmonary emboli. Aorta: Unremarkable. No aortic aneurysm. No aortic dissection. Lungs: There is left upper lobe discoid atelectasis. There is a 3 mm right upper lobe lung nodule on axial image 65. Linear atelectasis seen in the medial aspect of the right middle lobe. There is minimal bilateral posterior dependent lung atelectasis. Pleural space: Unremarkable. No pneumothorax. No pleural effusion. Heart: Unremarkable. No cardiomegaly. No pericardial effusion. Liver: There is a 9 mm hypodensity likely cyst in the caudate lobe of the liver. Lymph nodes: Unremarkable. No enlarged lymph nodes. Bones/joints: Unremarkable. No acute fracture. Soft tissues: Unremarkable. IMPRESSION: 1. No focal lung consolidation. 2. Linear atelectasis in the medial segment of the right middle lobe and left upper lobe. 3. 3 mm right upper lobe lung nodule. - For patients at low risk (minimal or absent history of smoking and of other known risk factors), no routine follow-up is indicated. - For patients at high risk (history of smoking or of other known risk factors), consider optional CT at 12 months. nemo Gonzalez al., Fleischner Society, 2017. Electronically signed by: John Priest On 08/17/2019 06:19:38 AM
--- NOTE | 2019-08-17 06:25 | REPVR ---
PROCEDURE INFORMATION: Exam: CT Abdomen And Pelvis With Contrast Exam date and time: 08/17/2019 5:09 AM Age: 38 years old Clinical indication: Abdominal pain; Epigastric; Additional info: Epigastric/ruq pain TECHNIQUE: Imaging protocol: Computed tomography of the abdomen and pelvis with intravenous contrast. Radiation optimization: All CT scans at this facility use at least one of these dose optimization techniques: automated exposure control; mA and/or kV adjustment per patient size (includes targeted exams where dose is matched to clinical indication); or iterative reconstruction. Contrast material: ISO; Contrast volume: 100 ml; Contrast route: AC; COMPARISON: No relevant prior studies available. FINDINGS: Liver: The liver is hypoattenuated. Gallbladder and bile ducts: The patient is status post cholecystectomy. The patient is status post cholecystectomy. The CHD is dilated measuring up to 1.2 cm with mild distal tapering with distal CBD measuring 9 mm. Pancreas: Normal. No ductal dilation. Spleen: Evaluation of the spleen is limited due to heterogeneous phase of enhancement. Adrenals: Normal. No mass. Kidneys and ureters: Normal. No hydronephrosis. Stomach and bowel: There is apparent thickening of the GE junction. There is suggestion of clustering of jejunal bowel loops in the left abdomen with suggestion of wall thickening coupled with mild increased mesenteric vascularity with small-bowel shotty mesenteric lymph nodes. Appendix: No evidence of appendicitis. Intraperitoneal space: Unremarkable. No free air. No significant fluid collection. Vasculature: Unremarkable. No abdominal aortic aneurysm. Lymph nodes: Unremarkable. No enlarged lymph nodes. Bladder: Unremarkable as visualized. Reproductive: Unremarkable as visualized. Bones/joints: Unremarkable. No acute fracture. Soft tissues: Unremarkable. IMPRESSION: 1. CT findings suggestive of enteritis. 2. Nonspecific suggested thickening of the GE junction which could be attributed to under distension however underlying abnormality such as esophagitis among others cannot be excluded. Correlate with clinical history. If indicated upper endoscopy may be obtained for further evaluation. 3. Fatty infiltration of the liver. 4. Status post cholecystectomy. 5. Dilated CHD at 1.2 cm and mild distal tapering of the CBD to 9 mm. Findings could be physiologic post cholecystectomy phenomena however underlying distal CBD/ampullary obstructive process cannot be completely excluded. Correlate with patient's clinical history, symptoms, LFTs and bilirubin level. If indicated MRI with MRCP may be obtained for further evaluation. Electronically signed by: John Priest On 08/17/2019 06:25:23 AM
[2019-08-17 06:31] LABS: ALBUMIN 3.9 GM/DL (3.2-5.2); ALT/SGPT 41 U/L (12-78); BILIRUBIN,DIRECT 0.7 MG/DL (0.0-0.2); BLOOD UREA NITROGEN 17 MG/DL (7-18); CARBON DIOXIDE LEVEL 25 MEQ/L (21-32); CHLORIDE LEVEL 105 MEQ/L (98-107); CREATININE FOR GFR 0.83 MG/DL (0.55-1.30); GLOMERULAR FILTRATION RATE > 60.0 (>60); GLUCOSE, FASTING 89 MG/DL (70-100); LIPASE 57 U/L (73-393); POTASSIUM SERUM 3.7 MEQ/L (3.5-5.1); SODIUM LEVEL 141 MEQ/L (136-145)
[2019-08-17 06:35] LABS: PLTBLUE- EDTA FREE CALC 25 K/mm3 (172-450)
[2019-08-17] MEDS ORDERED: GI COCKTAIL 50ML BTL(HYOSCYAMINE/MAALOX/LIDOCAINE VISCOUS)(1:3:1) PO ONE (06:45)
[2019-08-17 06:46] LABS: PLTBLUE- EDTA FREE MACHINE 23 10^3/uL (172-450)
[2019-08-17] MEDS ORDERED: FLAG500T PO (07:13)
[2019-08-17] MEDS ORDERED: NORC1TAB7 PO (07:13)
[2019-08-17] MEDS ORDERED: ONDA4TAB6 PO (07:13)
[2019-08-17] MEDS ORDERED: CIPR-249 PO (07:13)
[2019-08-17] MEDS ORDERED: NORCO, ANEXSIA 5/325MG TABLET (HYDROcodone/ACETAMINOPHEN) PO ONE (07:15)
[2019-08-17 07:46] VITALS: BP 167/85
--- NOTE | 2019-08-22 10:47 | ED PDOC ---
Post-Departure Follow-Up radiology report Kaylah Ying MD Aug 22, 2019 10:46
== END 2019-08-17 08:01 | disposition home or self-care (01) ==
LOC: M ED 04:46
DX: K52.9 Noninfective gastroenteritis and colitis, unspecified (principal); D69.3 Immune thrombocytopenic purpura; J10.1 Influenza due to other identified influenza virus with other respiratory manifestations; E03.9 Hypothyroidism, unspecified; K76.0 Fatty (change of) liver, not elsewhere classified; Z90.49 Acquired absence of other specified parts of digestive tract; R91.1 Solitary pulmonary nodule; Z79.899 Other long term (current) drug therapy; Z91.040 Latex allergy status
CPT/HCPCS: 71275; 74177; 80047; 80048; 80076; 83605; 83690; 84702; 85025; 85049; 85055; 93005; 93041; 94760; 96361; 96374; 96375; 96376; 99285; J2270; J2405; Q9967

== ENCOUNTER → 2019-10-13 | Outpatient (REF) | payer OTHER ==
[~2019-10-13] MED LIST changes: +CIPR-249 PO; +FLAG500T PO; +LEVO88TA3 PO; +NORC1TAB7 PO; +ONDA4TAB6 PO
[2019-10-13 18:22] LABS: APPEARANCE, URINE MANUAL HAZY (CLEAR); BILIRUBIN, URINE MANUAL NEGATIVE (NEGATIVE); COLOR, URINE MANUAL YELLOW (YELLOW); GLUCOSE, URINE (UA) MANUAL NEGATIVE (NEGATIVE); KETONE, URINE MANUAL NEGATIVE (NEGATIVE); PROTEIN, URINE MANUAL TRACE mg/dL (NEGATIVE); UROBILINOGEN, URINE MANUAL NORMAL (NORMAL)
[2019-10-13 18:23] LABS: BLOOD URINE MANUAL TRACE (NEGATIVE); LEUKOCYTE ESTERASE, URINE MAN POSITIVE (NEGATIVE); NITRITE, URINE MANUAL POSITIVE (NEGATIVE)
[2019-10-13 18:24] LABS: RBC, URINE NONE SEEN /hpf (0-3)
[2019-10-13 18:25] LABS: BACTERIA, URINE SMALL AMOUNT; HYALINE CAST, URINE NONE SEEN /lpf (0-1); SQUAMOUS EPITHELIAL CELL URINE NONE SEEN /hpf (SMALL AMT)
== END ==
LOC: M LAB REF 16:12
PROVIDERS: ATTEND Physician Assistant Medical
DX: R30.0 Dysuria (principal)

== ENCOUNTER → 2019-12-26 | Outpatient (REF) | payer OTHER ==
[~2019-12-26] MED LIST changes: -ZOLP6.25 PO; +ZOLP6.2517 PO
== END ==
LOC: M LAB REF 11:12
PROVIDERS: ATTEND Physician Assistant
DX: N39.0 Urinary tract infection, site not specified (principal)

== ENCOUNTER → 2020-04-30 | Outpatient (REF) | payer OTHER ==
[2020-04-30 18:03] LABS: APPEARANCE, URINE CLOUDY (CLEAR); BACTERIA, URINE AUTO NEGATIVE (NEGATIVE); BILIRUBIN, URINE AUTO NEGATIVE (NEGATIVE); BLOOD, URINE BLOOD NEGATIVE (NEGATIVE); COLOR, URINE YELLOW (YELLOW); GLUCOSE, URINE (UA) AUTO NEGATIVE (NEGATIVE); KETONE, URINE AUTO TRACE mg/dL (NEGATIVE); LEUKOCYTE ESTERASE, URINE AUTO NEGATIVE (NEGATIVE); MUCUS, URINE SMALL (NEGATIVE); NITRITE, URINE AUTO NEGATIVE (NEGATIVE); PROTEIN, URINE AUTO NEGATIVE (NEGATIVE); RBC, URINE AUTO 1 /HPF (0-3); SPECIFIC GRAVITY URINE AUTO 1.011 (1.002-1.035); SQUAMOUS EPITHELIAL CELL UR AU 14 /HPF (0-6); UROBILINOGEN, URINE AUTO 0.2 mg/dL (0.0-2.0); WBC, URINE AUTO 1 /HPF (0-3)
== END ==
LOC: M LAB REF 17:07
PROVIDERS: ATTEND Physician Assistant
DX: N39.0 Urinary tract infection, site not specified (principal)

== ENCOUNTER 2020-09-08 10:17 | Inpatient (IN) | payer OTHER ==
[2020-09-08] VITALS (7 sets, daily range): BP systolic 109–152; BP diastolic 69–84
[~2020-09-08] VITALS: Ht 172.7 cm; Wt 98.4 kg
[2020-09-08] MEDS ORDERED: HYDR-3363 PO (10:27)
[2020-09-08] MEDS ORDERED: DESV25TA (10:27)
[2020-09-08] MEDS ORDERED: NS 1,000 ML IV ONE (10:55)
[2020-09-08] MEDS ORDERED: MORPHINE 4 MG/ML 1ML VIAL/SYRINGE (J2270) IV ONE ×2 (11:05→12:25)
[2020-09-08] MEDS ORDERED: PANTOPRAZOLE 40MG VIAL (C9113 PER 1) IV ONE (11:05)
[2020-09-08] MEDS ORDERED: PROMETHAZINE INJ 25 MG/ML VIAL (J2550) IV ONE (11:05)
[2020-09-08 11:35] LABS: BASO % 0.4 % (0.0-1.0); EOS % 0.4 % (0.0-3.0); HEMATOCRIT 48.5 % (36.0-47.0); HEMOGLOBIN 16.6 g/dl (12.0-15.5); LYMPH # 1.5 10^3/uL (1.5-5.0); LYMPH % 13.7 % (24.0-44.0); MEAN CORPUSCULAR HEMOGLOBIN 33.7 pg (27.0-33.0); MEAN CORPUSCULAR HGB CONC 34.2 g/dl (32.0-36.5); MEAN CORPUSCULAR VOLUME 98.4 fl (80.0-96.0); MONO # 0.5 10^3/uL (0.0-0.8); MONO % 4.7 % (2.0-8.0); NEUTROPHILS # 8.7 10^3/uL (1.5-8.5); NEUTROPHILS % 80.3 % (36.0-66.0); RED BLOOD COUNT 4.93 10^6/uL (4.00-5.40); WHITE BLOOD COUNT 10.9 10^3/uL (4.0-10.0)
[2020-09-08 11:47] LABS: PLATELET COUNT, AUTOMATED 32 10^3/uL (150-450)
--- NOTE | 2020-09-08 12:30 | REP ---
INDICATION: Abdominal Pain COMPARISON: 07/17/2018 TECHNIQUE: Upright view of the chest with supine and upright views of the abdomen and pelvis. FINDINGS: Frontal upright view of the chest demonstrates no acute cardiopulmonary process or free air below the diaphragm to suspect pneumoperitoneum. Supine and upright views of the abdomen and pelvis demonstrate nonspecific bowel gas pattern without obstruction or perforation. Evidence for prior cholecystectomy. No organomegaly. No abnormal calcifications. Skeletal structures normal for age. IMPRESSION: Nonspecific bowel gas pattern. <Electronically signed by Jhonny Hope > 09/08/20 1830
[2020-09-08] MEDS ORDERED: ISOVUE-370 76% 100ML VIAL As Ordered ONE (13:19)
[2020-09-08 13:22] LABS: ALBUMIN 3.3 GM/DL (3.2-5.2); AMYLASE 154 U/L (25-115); BILIRUBIN,DIRECT 0.2 MG/DL (0.0-0.2); BILIRUBIN,TOTAL 1.2 MG/DL (0.2-1.0); CK-MB VALUE MASS < 1.0 NG/ML (<3.6); CPK CREATINE PHOSPHOKINASE 104 U/L (26-192); LIPASE 4474 U/L (73-393); MB/CK RELATIVE INDEX 0.96 (< OR =4); TOTAL PROTEIN 7.4 GM/DL (6.4-8.2); TROPONIN I < 0.02 NG/ML (< 0.10)
[2020-09-08 13:33] LABS: ALT/SGPT 78 U/L (12-78)
--- NOTE | 2020-09-08 13:40 | REP ---
INDICATION: epigastric/LUQ pain radiating to L shoulder COMPARISON: None. TECHNIQUE: Axial contrast enhanced images from the thoracic inlet to the upper abdomen using pulmonary embolus technique with multiplanar re-formations. 100 ml Isovue 370 intravenous contrast material administered without complication followed by CT of the abdomen and pelvis. This CT examination was performed using the following dose reduction techniques: Automated exposure control, adjustment of mA and/or kv according to the patient's size, and use of iterative reconstruction technique. FINDINGS: Satisfactory enhancement of the pulmonary vasculature is achieved and no filling defects are identified to suggest pulmonary embolus. Further evaluation of the mediastinum demonstrates normal thoracic aorta, heart and pericardium. The bilateral lung hooper are well aerated and clear without consolidation pleural effusion or pneumothorax. Tracheobronchial tree is patent. No nodule or mass lesion is identified. No adenopathy noted. Surrounding musculoskeletal structures intact IMPRESSION: No evidence for pulmonary embolus. No acute mediastinal or pleural parenchymal process. <Electronically signed by Jhonny Hope > 09/08/20 [id number]
--- NOTE | 2020-09-08 13:46 | REP ---
INDICATION: epigastric/LUQ pain radiating to L shoulder. COMPARISON: None TECHNIQUE: Axial contrast-enhanced images from the lung bases to the pubic symphysis using 100 cc Isovue 370 intravenous contrast material. . This CT examination was performed using the following dose reduction techniques: Automated exposure control, adjustment of mA and/or kv according to the patient's size, and the use of iterative reconstruction technique. FINDINGS: Moderate peripancreatic inflammatory stranding and fluid is appreciated without drainable collection/abscess or pseudocyst. Findings are compatible with acute pancreatitis. Hepatomegaly and diffuse hepatosteatosis noted. Patient is status post cholecystectomy. Spleen, bilateral adrenal glands and kidneys are normal. There is no evidence for bowel obstruction or acute inflammatory enteric process. Pelvis demonstrates normal bladder and age-appropriate uterus/adnexa. No pelvic ascites. Abdominal aorta and vasculature appears normal. Musculoskeletal structures demonstrate degenerative changes to the lower lumbosacral spine. IMPRESSION: 1. Acute pancreatitis with peripancreatic inflammatory stranding and mild ascites. No evidence for pancreatic necrosis, drainable collection/abscess or pseudocyst. 2. Hepatomegaly and hepatosteatosis. <Electronically signed by Jhonny Hope > 09/08/20 [id number]
[2020-09-08] MEDS ORDERED: PROP120C PO (13:51)
[2020-09-08] MEDS ORDERED: DESV50TA3 PO (13:51)
[2020-09-08] MEDS ORDERED: KETOROLAC 30 MG/ML 1ML VIAL IV ONE (14:15)
[2020-09-08 16:02] LABS: RSV AMPLIFICATION NEGATIVE (NEGATIVE)
--- NOTE | 2020-09-08 16:02 | ECGEPIP ---
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
[2020-09-08] MEDS ORDERED: hydrOXYzine 25 MG TAB PO PRN (16:30)
[2020-09-08] MEDS ORDERED: MORPHINE 4 MG/ML 1ML VIAL/SYRINGE (J2270) IV PRN (16:30)
[2020-09-08] MEDS: LR 1,000 ML IV SCH ×2 (16:41→19:50)
--- NOTE | 2020-09-08 17:04 | CR.PDOC ---
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 The chief reason for consultation is the presence of a history of ITP now superimposed on an established diagnosis of acute pancreatitis. The pancreatitis has been diagnosed on the basis the clinical pres entation of acute abdominal pain radiating to the back such that the patient was in very severe discomfort and was unable to give a history in depth of ITP for which the consultation was being affected. She has self wanted to be pain free in order to be able to give an accurate account for self. According to history she has an established diagnosis of ITP for a questionable period of time. She indicates that she was in the beginning diagnosed with some difficulty but later in [place] this was established. She has been treated with prednisone in the past but for the past sometime(not sure) she has been on no treatment. Additionally she has not been followed up with any trick rodeo rider as such. She indicates further that this is not the first episode that she has had of PANCREATITIS]. There has been no history of bleeding or bruising or any of the usual symptomatology associatesd with ITP HISTORY OF PRESENT ILLNESS: [See note]. ALLERGIES: Please see below. HOME MEDICATIONS: Please see below. PAST MEDICAL HISTORY: 1. [Unable/unwilling to give atthe moment ]. 2. . PAST SURGICAL HISTORY: 1. [Unable ] 2. FAMILY HISTORY:Unable at the time of seeing the patient Father: Mother: Siblings: Children: Hereditary Diseases: Unexpected deaths due to medical reasons: SOCIAL HISTORY: Marital status and/or living arrangements: Children: Employment: Tobacco use: ETOH: Illicit drug use: IV drug use: Other relevant social factors: REVIEW OF SYSTEMS: In the moment of my assessment the patient was sitting at the edge of the bed in pain restless unwanted pain relief and could not really give any further information about herself. The ER records at this moment have been consulted . PHYSICAL EXAMINATION: Well-developed woman in severe distress at the moment of examination. VITAL SIGNS: Please see below. GENERAL APPEARANCE: [Well-developed well-nourished]. HEENT: [Normal examination no evidence of adenopathy or bleeding or bruising]. RESPIRATORY: [Clear]. CARDIOVASCULAR: [Normal S1-S2]. ABDOMEN: [Abdomen soft no rigidity or guarding deep tenderness was not applied]. EXTREMITIES: [No evidence of bleeding]. NEUROLOGICAL: [No focal findings]. LABORATORY DATA: Please see below. ASSESSMENT/PLAN: 1. [The patient's CBC reveals a platelet count of 32,000]. 2. [Because the patients pancreatitis is severe based on the clinical findings as well as the amylase level and a lipase level of 4474 the hemorrhagic nature of pancreatitis currently cannot be excluded. Therefore it is not unreasonable to offer platelet transfusions 6 units or one bigg unit Prophylactically. Whether or not the platelet increment will be reasonable or not remains to be seen. At the moment it is not justified in my view to consider steroids. Follow- up platelet counts of regular nature in attempt if possible to keep the platelet numbers at around 50,000 should be targeted. This is often not possible in these acute circumstances and platelet consumption otherwise is markedly increased. 3. The prognosis is generally is guarded in my view. Follow her with you further questions please do not hesitate to call me. Given the patient's status and the circumstances further information about her ITP can be added but for the moment information is sufficient for therapeutic intervention. I have not seen the PT and INR and aptt in order that synergistic negative changes may not occur were these to be elevated]. Vital Signs/I&O Vital Signs Date Time Temp Pulse Resp B/P (MAP) Pulse Ox O2 Delivery O2 Flow Rate FiO2 09/08/20 16:40 24 99 09/08/20 13:35 09/08/20 13:35 78 09/08/20 11:46 Room Air 09/08/20 10:18 97.4 Laboratory Data Labs 24H Laboratory Tests 2 09/08/20 11:17: Immature Granulocyte % (Auto) 0.5, Neutrophils (%) (Auto) 80.3H, Lymphocytes (%) (Auto) 13.7L, Monocytes (%) (Auto) 4.7, Eosinophils (%) (Auto) 0.4, Basophils (%) (Auto) 0.4, Neutrophils # (Auto) 8.7H, Lymphocytes # (Auto) 1.5, Monocytes # (Auto) 0.5, Eosinophils # (Auto) 0.0, Basophils # (Auto) 0.0, Nucleated Red Blood Cells % (auto) 0.0, Immature Platelet Fraction 16.6H, Total Bilirubin 1.2H, Direct Bilirubin 0.2, Aspartate Amino Transf (AST/SGOT) 111H, Alanine Aminotransferase (ALT/SGPT) 78, Alkaline Phosphatase 124H, Total Creatine Kinase 104, Creatine Kinase MB < 1.0, Creatine Kinase MB Relative Index 0.96, Troponin I < 0.02, Total Protein 7.4, Albumin 3.3, Albumin/Globulin Ratio 0.8L, Amylase Level 154H, Lipase 4474H 09/08/20 11:41: POC Beta HCG, Quantitative < 5.0 09/08/20 11:53: POC Glucose (Misc Panel) 94, POC Sodium (Misc Panel) 135L, POC Potassium (Misc Panel) 4.1, POC Chloride (Misc Panel) 101, POC Total CO2 (Misc Panel) 32.0H, POC Blood Urea Nitrogen (Misc Panel 17, POC Ionized Calcium (Misc Panel) 4.4L, POC Creatinine (Misc Panel) 0.7, POC Hematocrit (Misc Panel) 53.0H 09/08/20 11:56: Coronavirus (COVID-19)(PCR) NEGATIVE, Influenza Type A (RT-PCR) NEGATIVE, Influenza Type B (RT-PCR) NEGATIVE, Respiratory Syncytial Virus (PCR) NEGATIVE CBC/BMP Laboratory Tests 09/08/20 11:17 Allergies Coded Allergies: latex (Verified Allergy, Unknown, swelling , 08/17/19) Home Medications Scheduled Desvenlafaxine Succinate (Desvenlafaxine Succinate ER) 50 Mg Tab.er.24h, 50 MG PO DAILY, (Reported) Levothyroxine Sodium (Levothyroxine Sodium) 88 Mcg Tablet, 88 MCG PO DAILY, (Reported) Propranolol HCl (Propranolol HCl ER) 120 Mg Cap.sa.24h, 120 MG PO DAILY, (Reported) Scheduled PRN Hydroxyzine HCl (Hydroxyzine HCl) 25 Mg Tablet, 25 MG PO TID PRN for ANXIETY, (Reported) JAMES CORNELIUS Sep 08, 2020 17:04
[2020-09-08 18:30] LABS: CHOLESTEROL LEVEL 568 MG/DL (<200); CHOLESTEROL RISK RATIO 24.695 (<5); FREE T4 0.94 NG/DL (0.76-1.46); HDL CHOLESTEROL 23 MG/DL (>40); NON-HDL-C 545 MG/DL; TRIGLYCERIDES LEVEL 3205 MG/DL (<150)
--- NOTE | 2020-09-08 18:43 | HPE ---
HISTORY AND PHYSICAL DATE OF ADMISSION: 09/08/2020 FIRST DIAGNOSIS: Acute pancreatitis. SECOND DIAGNOSIS: Chronic immune thrombocytopenia (ITP). HISTORY OF PRESENT ILLNESS: Aminah Ibarra is a 39-year-old. She is followed at a clinic in [facility]. She has a past history of depression with inpatient mental health unit (IM) hospitalizations, chronic anxiety, hypertension and ITP, which is currently untreated and unmonitored. Apparently this diagnosis was made a few years ago. She was being followed by a disbursing officer in [place]. Has had no hematologic followup since then. She is admitted with acute pancreatitis, a severe second episode of this. She was seen in the emergency room last year for abdominal pain, 08/17/2019. It does not look like she was admitted then. She is admitted with increased abdominal pain, nausea and pain radiating to her left shoulder. She came to the emergency room. CT of her abdomen and pelvis showed pancreatitis, pancreatic inflammatory stranding and ascites. Fatty liver also noted. CT angiogram is unremarkable. Having significant pain. Was given intravenous (IV) morphine and IV Ketoralac in the emergency room. 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 Does not smoke. She is . MEDICATIONS: - Pristiq 50 mg daily - hydroxyzine 25 mg three time a day as needed for anxiety. - levothyroxine 88 mcg daily - propranolol ER 120 mg daily ALLERGIES: LATEX REVIEW OF SYSTEMS: No hematemesis, rectal bleeding, epistaxis, fever, chills. PHYSICAL EXAMINATION: Blood pressure 184/109 on arrival, it is currently 122/78, pulse 70, respiratory rate 18, 97% oxygen saturation. GENERAL APPEARANCE. She looks quite uncomfortable, holding her abdomen. HEENT: Pupils equal and reactive to light. Pharynx benign. NECK: No masses. LUNGS: Clear. HEART: Regular rhythm. No murmur. ABDOMEN: Soft. Tender epigastric area in left upper quadrant. No guarding, rebound or referred pain. EXTREMITIES: No clubbing, cyanosis or edema. Normal strength in the arms and legs. No ecchymosis or petechiae. No axillary, cervical or inguinal adenopathy. LABORATORY DATA: Sodium 135, potassium 4.1, BUN 17, creatinine 0.7. COVID negative. Bilirubin 1.2, AST 111, ALT 78, lipase 44/74. test negative. White count 10.9, hemoglobin 16.6, platelets 32,000 (reviewing the records, she had a normal platelet count 11/2018 of 178. 08/17/19 her platelet count was 25, confirmed by EDTA Free 2. Today's platelet count is 32,000. IMPRESSION: 1. Acute pancreatitis. She will be admitted to a medical bed. Ice chips and sips of water only. IV rehydration with lactated Ringer's. Analgesic ordered with morphine. Please avoid Ketoralac in the face of thrombocytopenia. She is at risk of hemorrhagic transformation of the pancreatitis with the thrombocytopenia and the nonsteroidal antiinflammatory (NSAID). 2. Deep venous thrombosis (DVT) prophylaxis with mechanical sequential thromboembolism deterrents (TEDs) has been ordered; pharmacologic DVT prophylaxis deferred due to thrombocytopenia. 3. ITP. I spoke to Dr. Jose L Esposito, who is boilermaker assembly and erection for hematology/oncology. He will see the patient in consultation. She is not actively bleeding, but concerned about the potential for hemorrhagic transformation of the pancreatitis. I also think she should be set up with a local disbursing officer/oncologist. 4. Chronic depression/anxiety. Continue current medications to avoid SNRI withdrawal syndrome. 5. History of hypertension. Continue beta shahla therapy to avoid rebound hypertension. Blood pressure was quite high in the emergency room. It is improved now with some pain medications. Etiology of the pancreatitis is unknown. Alcohol intake is low. She is not any medications known to provoke pancreatitis. I will check a lipid profile. She says part of her lipid profile was "quite high" in the past but she does not recall what that was. Severe hypertriglyceridemia would be a risk factor. Patient is status post cholecystectomy.
[2020-09-08] MEDS ORDERED: MORPHINE 2 MG/ML 1ML VIAL (J2270) IV PRN (20:10)
[2020-09-08] MEDS ORDERED: INSULIN REGULAR IN 0.9 % NACL 100 UNIT in IV 1 EA IV SCH ×2 (20:31)
[2020-09-08] MEDS ORDERED: INSULIN IV RATE CHANGE DOCUMENTATION ML/HR XX SCH (20:35)
[2020-09-08] MEDS: HYDROmorphone HCL 2 MG/ML 1ML VIAL (J1170) IV PRN (21:25)
[2020-09-08] MEDS: D5W/0.45% SODIUM CHLORIDE 1,000 ML IV SCH (21:27)
[2020-09-08] MEDS: ONDANSETRON 4MG/2ML VIAL IV PRN (21:37)
[2020-09-08] MEDS ORDERED: DEXTROSE 50% 50 ML SYRINGE IV STA (21:50)
[2020-09-08] MEDS ORDERED: INSULIN REGULAR 100UNITS IN 0.9% SODIUM CHLORIDE 100ML IVBAG As Ordered ONE (22:28)
[2020-09-08 22:48] LABS: CHOLESTEROL LEVEL 344 MG/DL (<200); CHOLESTEROL RISK RATIO 15.636 (<5); HDL CHOLESTEROL 22 MG/DL (>40); NON-HDL-C 322 MG/DL; TRIGLYCERIDES LEVEL 709 MG/DL (<150)
--- NOTE | 2020-09-08 23:52 | IPNPDOC ---
Text Note Date of Service The patient was seen on 09/08/20. NOTE Overnight progress note S: Patient continues to experience 9-10/10 epigastric abdominal pain. Additionally, patient was found to have triglyceride level of 3205. O: VS see below Gen: alert, appears uncomfortable, in no acute distress Abdomen: soft with tenderness over the epigastric area. no rebound, guarding, or rigidity A/P: 39 year old female admitted for acute pancreatitis found to have elevated triglycerides. Transferred to ICU and started on insulin drip with q1h FSBS. IV fluids switched to D5 1/2NS. Patient was also given an amp of D50 to help bring her blood glucose level up prior to starting the insulin drip. Monitor triglyceride level q12h. Plan to discontinue insulin drip when the triglyceride level drops below 500. Pain control was also switched to IV diluadid at this time due to poor control with IV morphine. Continue to avoid NSAIDs for pain control due to potential for hemorrhagic transformation of the pancreatitis with history of ITP. VS,Fishbone, I+O VS, Fishbone, I+O Laboratory Tests 09/08/20 11:17 Vital Signs Date Time Temp Pulse Resp B/P (MAP) Pulse Ox O2 Delivery O2 Flow Rate FiO2 09/08/20 21:37 12 09/08/20 20:40 98.5 108 121/79 (93) 98 Room Air RIGO PHILIP D.O. Sep 08, 2020 23:52
[2020-09-09] VITALS (17 sets, daily range): BP systolic 94–115; BP diastolic 54–75
[2020-09-09] MEDS: HYDROmorphone HCL 2 MG/ML 1ML VIAL (J1170) IV PRN ×7 (00:22→18:45)
[2020-09-09] MEDS ORDERED: GLUCAGON INJ 1MG VIAL SC PRN (00:25)
[2020-09-09] MEDS ORDERED: GLUCOSE 4GM CHEW TABLET PO PRN (00:25)
[2020-09-09] MEDS ORDERED: DEXTROSE 50% 50 ML SYRINGE IV PRN (00:25)
[2020-09-09] MEDS: D5W/0.45% SODIUM CHLORIDE 1,000 ML IV SCH ×2 (02:36→06:38)
[2020-09-09] MEDS: ONDANSETRON 4MG/2ML VIAL IV PRN ×5 (03:41→21:51)
[2020-09-09 04:47] LABS: HEMATOCRIT 46.5 % (36.0-47.0); HEMOGLOBIN 15.2 g/dl (12.0-15.5); MEAN CORPUSCULAR HEMOGLOBIN 32.8 pg (27.0-33.0); MEAN CORPUSCULAR HGB CONC 32.7 g/dl (32.0-36.5); MEAN CORPUSCULAR VOLUME 100.4 fl (80.0-96.0); RED BLOOD COUNT 4.63 10^6/uL (4.00-5.40); WHITE BLOOD COUNT 8.4 10^3/uL (4.0-10.0)
[2020-09-09 04:52] LABS: PLATELET COUNT, AUTOMATED 28 10^3/uL (150-450)
[2020-09-09] MEDS: LEVOTHYROXINE 88MCG TABLET (0.088 MG) PO SCH (05:09)
[2020-09-09 05:25] LABS: ALBUMIN 2.4 GM/DL (3.2-5.2); ALT/SGPT 47 U/L (12-78); BILIRUBIN,TOTAL 1.3 MG/DL (0.2-1.0); BLOOD UREA NITROGEN 14 MG/DL (7-18); CARBON DIOXIDE LEVEL 25 MEQ/L (21-32); CHLORIDE LEVEL 104 MEQ/L (98-107); CREATININE FOR GFR 0.76 MG/DL (0.55-1.30); GLOMERULAR FILTRATION RATE > 60.0 (>60); GLUCOSE, FASTING 112 MG/DL (70-100); LIPASE 2198 U/L (73-393); POTASSIUM SERUM 3.7 MEQ/L (3.5-5.1); SODIUM LEVEL 137 MEQ/L (136-145); TOTAL PROTEIN 5.8 GM/DL (6.4-8.2)
[2020-09-09] MEDS: PROPRANOLOL 60 MG LA CAP PO SCH (08:57)
[2020-09-09] MEDS ORDERED: DESVENLAFAXINE ER 50 MG TABLET (PRISTIQ) PO SCH (09:00)
[2020-09-09] MEDS: LR 1,000 ML IV SCH ×3 (09:44→18:43)
[2020-09-09] MEDS: PANTOPRAZOLE 40MG TAB (PROTONIX) PO SCH (12:22)
--- NOTE | 2020-09-09 15:07 | IPNPDOC ---
Subjective Date Seen The patient was seen on 09/09/20. Subjective Chief Complaint/HPI Mrs. Ibarra is a 39 year old female with ITP who presents with abdominal pain and found to have acute pancreatitis. Last evening, he pain was not controlled with morphine. The night team increased her pain control to Dilaudid. Otherwise, she was also found to have hypertriglyceridemia. She was switched to a dextrose/0.45NS IVF and started on an insulin drip. This morning, the abdominal pain improved, but still present. Her appetite has not returned. Denies chest pain or dyspnea. Later in the morning, her triglycerides dropped to 529. Discont inued the dextrose/0.45NS IVF and insulin drip and restarted LR. If her next triglyceride level does not increase, can consider downgrading to PCU for Dilaudid protocol. Objective Physical Examination General Exam: Positive: Alert, Cooperative, Mild Distress Eye Exam: Positive: EOMI; Negative: Sclera icteric ENT Exam: Positive: Atraumatic Chest Exam: Positive: Clear to auscultation; Negative: Rales, Rhonchi, Wheezing Heart Exam: Positive: Rate Normal, Regular Rhythm Abdomen Exam: Positive: Normal bowel sounds, Soft, Tenderness Extremity Exam: Positive: Edema (very mild pitting edema) Neuro Exam: Positive: Normal Speech Psych Exam: Positive: Mental status NL, Mood NL Assessment /Plan Assessment Mrs. Ibarra is a 39 year old female with ITP who presents with abdominal pain and found to have acute pancreatitis. She has hypertriglyceridemia which may be the etiology of her pancreatitis. Triglycerides did respond to the insulin drip. Will follow up with triglyceride this evening to see how she does off of the drip. Otherwise, continue with NPO since appetite has not returned. Continue IVF with LR. Will check an HbA1c. Otherwise, her platelets are low. Hematology/oncology following, recommendations appreciated. Hematology/oncology monitoring platelets at this time. Plan/VTE VTE Prophylaxis Ordered?: Yes VTE Exclusion Pharmacological: Thrombocytopenia Plan 1. Acute pancreatitis -Lipase of 4474 on admission, now downtrending -Triglycerides elevated at 3205, responding to insulin and downtrending -Still has abdominal pain and no appetite -Continue NPO and LR IVF -Avoid ketorolac due to thrombocytopenia and potential hemorrhagic conversion of pancreatitis. 2. Hypertriglyceridemia -Triglycerides initially elevated at 3205 -Responded to insulin drip 3. ITP -Hematology/oncology was consulted -Monitoring platelets at this time 4. Hypothyroidism -Continue Levothyroxine 5. Anxiety/Depression -Continue desvenlafaxine and hydroxyzine as needed 6. GERD -Started Protonix 7. DVT ppx -Compression stockings Disposition: Repeat triglycerides this evening. If triglycerides is not significantly elevated, can consider transfer to PCU as she is requiring the Dilaudid protocol for pain control. Avoid ketorolac in concern for hemorrhagic pancreatitis. VS, I&O, 24H, Fishbone Vital Signs/I&O Vital Signs Date Time Temp Pulse Resp B/P (MAP) Pulse Ox O2 Delivery O2 Flow Rate FiO2 09/09/20 13:01 16 95 Nasal Cannula 2.0 09/09/20 12:51 90 09/09/20 12:00 98.0 106/75 (85) I&O- Last 24 Hours up to 6 AM 09/09/20 06:00 Intake Total 1660 ml Output Total 525 ml Balance 1135 ml Laboratory Data 24H LABS Laboratory Tests 2 09/08/20 21:26: Bedside Glucose (Misc Panel) 101 09/08/20 22:02: Triglycerides Level 709H, Total Cholesterol 344H, LDL Cholesterol , Non-HDL Cholesterol (LDL + VLDL) 322, Total HDL Cholesterol 22L, Cholesterol/HDL Ratio 15.636H 09/08/20 22:25: Bedside Glucose (Misc Panel) 144H 09/08/20 23:19: Bedside Glucose (Misc Panel) 116H 09/09/20 00:21: Bedside Glucose (Misc Panel) 100 09/09/20 01:28: Bedside Glucose (Misc Panel) 106H 09/09/20 03:37: Bedside Glucose (Misc Panel) 85 09/09/20 04:35: Anion Gap 8, Glomerular Filtration Rate > 60.0, Calcium Level 6.0L, Total Bilirubin 1.3H, Aspartate Amino Transf (AST/SGOT) 77H, Alanine Aminotransferase (ALT/SGPT) 47, Alkaline Phosphatase 76, Total Protein 5.8#L, Albumin 2.4#L, Al bumin/Globulin Ratio 0.7L, Lipase 2198H 09/09/20 04:36: Nucleated Red Blood Cells % (auto) 0.0 09/09/20 05:04: Bedside Glucose (Misc Panel) 126H 09/09/20 06:32: Bedside Glucose (Misc Panel) 129H 09/09/20 07:43: Bedside Glucose (Misc Panel) 110H 09/09/20 08:43: Triglycerides Level 529H 09/09/20 09:40: Bedside Glucose (Misc Panel) 102 09/09/20 11:05: Bedside Glucose (Misc Panel) 108H CBC/BMP Laboratory Tests 09/09/20 04:35 09/09/20 04:36 ANDREI MCGARRY 9, 2021 15:07
[2020-09-09 20:19] LABS: INR 1.08; PROTHROMBIN TIME 14.2 SECONDS (12.5-14.3)
[2020-09-09 20:20] LABS: PARTIAL THROMBOPLASTIN TIME 27.5 SECONDS (24.2-38.5)
[2020-09-09 21:24] LABS: HEMOGLOBIN A1c 4.8 %
[2020-09-09] MEDS: HYDROMORPHONE HCL 0.5 MG/ 0.5 ML SYRINGE (J1170 PER 1) IV PRN (21:54)
[2020-09-10] VITALS (7 sets, daily range): BP systolic 115–131; BP diastolic 69–79; O2SAT 93
[2020-09-10] MEDS: LR 1,000 ML IV SCH ×2 (00:29→05:30)
[2020-09-10] MEDS: HYDROMORPHONE HCL 0.5 MG/ 0.5 ML SYRINGE (J1170 PER 1) IV PRN ×2 (01:02→04:05)
[2020-09-10] MEDS: ONDANSETRON 4MG/2ML VIAL IV PRN ×2 (04:05→07:41)
[2020-09-10 05:07] LABS: MEAN CORPUSCULAR HEMOGLOBIN 33.2 pg (27.0-33.0); MEAN CORPUSCULAR HGB CONC 32.5 g/dl (32.0-36.5); MEAN CORPUSCULAR VOLUME 102.3 fl (80.0-96.0); RED BLOOD COUNT 3.91 10^6/uL (4.00-5.40); WHITE BLOOD COUNT 8.6 10^3/uL (4.0-10.0)
[2020-09-10 05:08] LABS: PLATELET COUNT, AUTOMATED 43 10^3/uL (150-450)
[2020-09-10 05:28] LABS: ALBUMIN 2.1 GM/DL (3.2-5.2); ALT/SGPT 29 U/L (12-78); BILIRUBIN,TOTAL 1.7 MG/DL (0.2-1.0); BLOOD UREA NITROGEN 11 MG/DL (7-18); CALCIUM LEVEL 6.1 MG/DL (8.5-10.1); CARBON DIOXIDE LEVEL 25 MEQ/L (21-32); CHLORIDE LEVEL 102 MEQ/L (98-107); CREATININE FOR GFR 0.61 MG/DL (0.55-1.30); GLOMERULAR FILTRATION RATE > 60.0 (>60); GLUCOSE, FASTING 96 MG/DL (70-100); LIPASE 837 U/L (73-393); POTASSIUM SERUM 3.5 MEQ/L (3.5-5.1); SODIUM LEVEL 133 MEQ/L (136-145); TOTAL PROTEIN 5.8 GM/DL (6.4-8.2)
[2020-09-10] MEDS: DOCUSATE SODIUM 100MG CAPSULE PO SCH ×2 (05:30→09:59)
[2020-09-10] MEDS: LEVOTHYROXINE 88MCG TABLET (0.088 MG) PO SCH (05:30)
[2020-09-10 07:38] LABS: BILIRUBIN,DIRECT 0.9 MG/DL (0.0-0.2)
[2020-09-10] MEDS: HYDROmorphone HCL 2 MG/ML 1ML VIAL (J1170) IV PRN ×5 (07:41→22:50)
[2020-09-10] MEDS ORDERED: POTASSIUM CHLORIDE 10 MEQ SR TABLET PO ONE (08:00)
[2020-09-10] MEDS ORDERED: ISOVUE-370 76% 100ML VIAL As Ordered ONE (09:08)
--- NOTE | 2020-09-10 09:40 | REP ---
INDICATION: Abdominal pain, concern for pancreatic hemorrhage. COMPARISON: 09/08/2020, 08/17/2019 TECHNIQUE: Axial contrast-enhanced images from the lung bases to the pubic symphysis using 100 cc Isovue 370 intravenous contrast material. . This CT examination was performed using the following dose reduction techniques: Automated exposure control, adjustment of mA and/or kv according to the patient's size, and the use of iterative reconstruction technique. FINDINGS: Current examination demonstrates decreased density to the pancreatic tail which represents a change from prior examination and suspicious for area of infarction/necrosis (less than 30%). There is significantly increased peripancreatic and retroperitoneal inflammatory changes along with increased free fluid primarily identified in the left upper quadrant and partially contained raising the possibility of forming pseudocyst. Fluid is low-density and does not appear to be obviously hemorrhagic. Diffuse fatty infiltration to the liver. Evidence for prior cholecystectomy. Spleen, bilateral adrenal glands and kidneys are relatively normal. Incidental nonobstructing 2 mm left nephrolith identified. Small and large bowel is without obstruction or perforation. No free air identified. Pelvis demonstrates normal bladder and age-appropriate uterus/adnexa. Abdominal aorta and vasculature appear normal. Lung bases demonstrate moderate lower lobe atelectasis (left greater than right) and small left pleural effusion. IMPRESSION: 1. Pancreatic grading score: 6 (moderate acute pancreatitis) including suspected area of infarction/necrosis at the tail of less than 30% total pancreatic volume, significantly increased areas of inflammatory change, and areas of fluid collection. 2. Lower lobe atelectasis/consolidations (left greater than right) and small left pleural effusion. 3. Hepatosteatosis. <Electronically signed by Jhonny Hope > 09/10/20 0906
[2020-09-10] MEDS: PANTOPRAZOLE 40MG TAB (PROTONIX) PO SCH (09:58)
[2020-09-10] MEDS: PROPRANOLOL 60 MG LA CAP PO SCH (09:59)
[2020-09-10] MEDS: SENNA 8.6 MG TAB (SENOKOT) PO SCH (09:59)
[2020-09-10] MEDS: NS 1,000 ML IV SCH ×2 (12:26→21:45)
[2020-09-10] MEDS: PIPERACILLIN/TAZOBACTAM SOD 3.375 GM in D5W MINI-BAG PLUS 50 ML IV SCH ×2 (12:27→17:33)
--- NOTE | 2020-09-10 16:51 | IPNPDOC ---
Subjective Date Seen The patient was seen on 09/10/20. Subjective Chief Complaint/HPI Mrs. Ibarra is a 39 year old female with ITP who presents with abdominal pain and found to have acute pancreatitis. Last night Venlafaxine was discontinued as a potential cause for her hypertriglyceridemia. Otherwise, this morning, she was feeling better. Still has residual left sided abdominal pain and tenderness. She felt well enough to try a diet. Tolerated clear liquids and moving towards regular diet. Otherwise, ordered repeat CT abd/pelvis. No hemorrhagic pancreatitis, but demonstrates fluid collections and necrosis. Touched base with general surgery, Dr. Barrios. Monitor for the time being. No need for surgery at this time. Otherwise, UA is suggestive of UTI, started on Zosyn. Pending blood culture and urine culture results. Objective Physical Examination General Exam: Positive: Alert, Cooperative Eye Exam: Positive: EOMI; Negative: Sclera icteric ENT Exam: Positive: Atraumatic Chest Exam: Positive: Clear to auscultation; Negative: Rales, Rhonchi, Wheezing Heart Exam: Positive: Rate Normal, Regular Rhythm Abdomen Exam: Positive: Normal bowel sounds, Soft, Tenderness (left abdominal pain and tenderness) Extremity Exam: Positive: Edema (very mild pitting edema) Neuro Exam: Positive: Normal Speech Psych Exam: Positive: Mental status NL, Mood NL Assessment /Plan Assessment Mrs. Ibarra is a 39 year old female with ITP who presents with abdominal pain and found to have acute pancreatitis. She has hypertriglyceridemia which may be the etiology of her pancreatitis. Triglycerides did respond to the insulin drip and have remained low. Appetite has returned and tolerated clear liquid today. Will try regular food this evening. Otherwise, UA is suggestive of UTI. Will start on Zosyn. Otherwise, her platelets are low, but improving. Hematology/oncology following, recommendations appreciated. Hematology/oncology monitoring platelets at this time. Plan/VTE VTE Prophylaxis Ordered?: Yes VTE Exclusion Pharmacological: Thrombocytopenia Plan 1. Acute pancreatitis -Lipase of 4474 on admission, now downtrending -Triglycerides elevated at 3205, responding to insulin and downtrending -Appetite returned and tolerated clear liquid diet. Advancing to solids -Avoid ketorolac due to thrombocytopenia and potential hemorrhagic conversion of pancreatitis 2. Hypertriglyceridemia -Triglycerides initially elevated at 3205 -Responded to insulin drip and now resolved 3. ITP -Hematology/oncology was consulted -Monitoring platelets at this time 4. Hypothyroidism -Continue Levothyroxine 5. Anxiety/Depression -Continue desvenlafaxine and hydroxyzine as needed 6. GERD -Started Protonix 7. DVT ppx -Compression stockings VS, I&O, 24H, Fishbone Vital Signs/I&O Vital Signs Date Time Temp Pulse Resp B/P (MAP) Pulse Ox O2 Delivery O2 Flow Rate FiO2 09/10/20 15:55 16 95 Nasal Cannula 2.0 09/10/20 13:14 97.4 87 129/79 (96) I&O- Last 24 Hours up to 6 AM 09/10/20 06:00 Intake Total 5094 ml Output Total 800 ml Balance 4294 ml Laboratory Data 24H LABS Laboratory Tests 2 09/09/20 17:24: Bedside Glucose (Misc Panel) 93 09/09/20 19:53: Prothrombin Time 14.2H, Prothromb Time International Ratio 1.08, Activated Partial Thromboplast Time 27.5 09/09/20 19:54: Estimated Mean Plasma Glucose 91, Hemoglobin A1c 4.8, Triglycerides Level 413H 09/10/20 03:58: Urine Color JUSTINE, Urine Appearance CLOUDYH, Urine pH 5.0, Urine Specific [place] 1.021, Urine Protein 1+H, Urine Glucose (UA) NEGATIVE, Urine Ketones TRACEH, Urine Blood NEGATIVE, Urine Nitrite POSITIVEH, Urine Bilirubin NEGATIVE, Urine Urobilinogen 4.0H, Urine Leukocyte Esterase NEGATIVE, Urine WBC (Auto) 9H, Urine RBC (Auto) 0, Urine Hyaline Casts (Auto) 0, Urine Bacteria (Auto) 1+H, Urine Squamous Epithelial Cells 7, Urine Mucus (Auto) SMALL, Urine Sperm (Auto) 09/10/20 04:36: Nucleated Red Blood Cells % (auto) 0.0, Immature Platelet Fraction 17.3H, Anion Gap 6L, Glomerular Filtration Rate > 60.0, Calcium Level 6.1L, Total Bilirubin 1.7H, Direct Bilirubin 0.9H, Aspartate Amino Transf (AST/SGOT) 48H, Alanine Aminotransferase (ALT/SGPT) 29, Alkaline Phosphatase 77, Total Protein 5.8L, Albumin 2.1L, Albumin/Globulin Ratio 0.6L, Lipase 837H 09/10/20 12:29: Magnesium Level 1.3L CBC/BMP Laboratory Tests 09/10/20 04:36 Microbiology Microbiology 09/10/20 Blood Culture, Received Pending 09/10/20 Blood Culture, Received Pending 09/10/20 Urine Culture, Received Pending ANDREI MCGARRY 10, 2021 16:51
[2020-09-10] MEDS: MAG SULF 1GM/100ML (MAG RUN) 1 GM in IV 1 EA IV SCH ×3 (18:50→23:05)
[2020-09-10] MEDS ORDERED: MAGNESIUM SULFATE 1GM/100ML D5W BAG (10MG/ML) As Ordered ONE (23:02)
[2020-09-11] VITALS (12 sets, daily range): BP systolic 95–142; BP diastolic 56–86; O2SAT 93–96
[2020-09-11] MEDS: PIPERACILLIN/TAZOBACTAM SOD 3.375 GM in D5W MINI-BAG PLUS 50 ML IV SCH ×5 (00:19→23:17)
[2020-09-11] MEDS: HYDROmorphone HCL 2 MG/ML 1ML VIAL (J1170) IV PRN ×7 (02:08→22:46)
[2020-09-11] MEDS: LEVOTHYROXINE 88MCG TABLET (0.088 MG) PO SCH (05:34)
[2020-09-11] MEDS: NS 1,000 ML IV SCH (05:42)
[2020-09-11 07:00] LABS: HEMATOCRIT 34.2 % (36.0-47.0); HEMOGLOBIN 11.2 g/dl (12.0-15.5); MEAN CORPUSCULAR HEMOGLOBIN 34.4 pg (27.0-33.0); MEAN CORPUSCULAR HGB CONC 32.7 g/dl (32.0-36.5); MEAN CORPUSCULAR VOLUME 104.9 fl (80.0-96.0); RED BLOOD COUNT 3.26 10^6/uL (4.00-5.40); WHITE BLOOD COUNT 7.1 10^3/uL (4.0-10.0)
[2020-09-11 07:02] LABS: PLATELET COUNT, AUTOMATED 56 10^3/uL (150-450)
[2020-09-11 07:32] LABS: ALBUMIN 1.9 GM/DL (3.2-5.2); ALT/SGPT 22 U/L (12-78); BILIRUBIN,TOTAL 1.4 MG/DL (0.2-1.0); BLOOD UREA NITROGEN 6 MG/DL (7-18); CALCIUM LEVEL 6.4 MG/DL (8.5-10.1); CARBON DIOXIDE LEVEL 26 MEQ/L (21-32); CHLORIDE LEVEL 101 MEQ/L (98-107); CREATININE FOR GFR 0.53 MG/DL (0.55-1.30); GLOMERULAR FILTRATION RATE > 60.0 (>60); GLUCOSE, FASTING 96 MG/DL (70-100); LIPASE 452 U/L (73-393); POTASSIUM SERUM 3.1 MEQ/L (3.5-5.1); SODIUM LEVEL 134 MEQ/L (136-145); TOTAL PROTEIN 5.7 GM/DL (6.4-8.2)
[2020-09-11] MEDS ORDERED: POTASSIUM CHLORIDE 10 MEQ SR TABLET PO ONE (07:40)
[2020-09-11 07:58] LABS: MAGNESIUM LEVEL 2.4 MG/DL (1.8-2.4)
[2020-09-11] MEDS: PANTOPRAZOLE 40MG TAB (PROTONIX) PO SCH (08:29)
[2020-09-11] MEDS: DOCUSATE SODIUM 100MG CAPSULE PO SCH ×2 (08:29→19:33)
[2020-09-11] MEDS: SENNA 8.6 MG TAB (SENOKOT) PO SCH (08:29)
[2020-09-11] MEDS: PROPRANOLOL 60 MG LA CAP PO SCH (09:00)
[2020-09-11] MEDS ORDERED: GI COCKTAIL 50ML BTL(HYOSCYAMINE/MAALOX/LIDOCAINE VISCOUS)(1:3:1) PO ONE (11:30)
[2020-09-11] MEDS: MIRALAX *UNIT DOSE* 17GM PACKET PO SCH (11:36)
[2020-09-11] MEDS ORDERED: FUROSEMIDE 40MG/4ML VIAL (J1940) IV ONE (11:40)
--- NOTE | 2020-09-11 18:51 | IPNPDOC ---
Subjective Date Seen The patient was seen on 09/11/20. Subjective Chief Complaint/HPI Mrs. Ibarra is a 39 year old female with ITP who presents with abdominal pain and found to have acute pancreatitis. She was seen in the morning. She tells me that she can tolerate a solid diet. She normally eats small meals. Otherwise she tells me she still has left-sided abdominal pain of which she is needed Dilaudid around the clock. She feels like she's filling up with fluid. Since she is tolerating orals, DC'd IV fluids and started Lasix. This afternoon, she did not do well with solids. Went back to full liquids. Objective Physical Examination General Exam: Positive: Alert, Cooperative Eye Exam: Positive: EOMI; Negative: Sclera icteric ENT Exam: Positive: Atraumatic Chest Exam: Positive: Clear to auscultation; Negative: Rales, Rhonchi, Wheezing Heart Exam: Positive: Rate Normal, Regular Rhythm Abdomen Exam: Positive: Normal bowel sounds, Soft, Tenderness (left abdominal pain and tenderness) Extremity Exam: Positive: Edema (very mild pitting edema) Neuro Exam: Positive: Normal Speech Psych Exam: Positive: Mental status NL, Mood NL Assessment /Plan Assessment Mrs. Ibarra is a 39 year old female with ITP who presents with abdominal pain and found to have acute pancreatitis. She has hypertriglyceridemia which may be the etiology of her pancreatitis. Triglycerides did respond to the insulin drip and have remained low. Appetite has returned and did well with clear liquids. Did not do well with solids, we'll go back to full liquids. Otherwise, UA is suggestive of UTI. Will start on Zosyn. Otherwise, her platelets are low, but improving. Hematology/oncology following, recommendations appreciated. Hematology/oncology monitoring platelets at this time. Plan/VTE VTE Prophylaxis Ordered?: Yes VTE Exclusion Pharmacological: Thrombocytopenia Plan 1. Acute pancreatitis -Lipase of 4474 on admission, now downtrending -Triglycerides elevated at 3205, responding to insulin and downtrending -Appetite returned, did not tolerate solids. We'll do full liquids -Avoid ketorolac due to thrombocytopenia and potential hemorrhagic conversion of pancreatitis 2. Hypertriglyceridemia -Triglycerides initially elevated at 3205 -Responded to insulin drip and now resolved 3. ITP -Hematology/oncology was consulted -Monitoring platelets at this time 4. Hypothyroidism -Continue Levothyroxine 5. Anxiety/Depression -Continue desvenlafaxine and hydroxyzine as needed 6. GERD -Started Protonix 7. DVT ppx -Compression stockings VS, I&O, 24H, Fishbone Vital Signs/I&O Vital Signs Date Time Temp Pulse Resp B/P (MAP) Pulse Ox O2 Delivery O2 Flow Rate FiO2 09/11/20 16:30 16 Room Air 09/11/20 14:00 97.1 09/11/20 13:40 87 114/72 (86) 93 09/11/20 06:00 2.0 I&O- Last 24 Hours up to 6 AM 09/11/20 06:00 Intake Total 4395 ml Output Total 1650 ml Balance 2745 ml Laboratory Data 24H LABS Laboratory Tests 2 09/11/20 06:23: Nucleated Red Blood Cells % (auto) 0.0, Immature Platelet Fraction 18.5H, Anion Gap 7L, Glomerular Filtration Rate > 60.0, Calcium Level 6.4L, Magnesium Level 2.4, Total Bilirubin 1.4H, Aspartate Amino Transf (AST/SGOT) 37, Alanine Aminotransferase (ALT/SGPT) 22, Alkaline Phosphatase 72, Total Protein 5.7L, Albumin 1.9L, Albumin/Globulin Ratio 0.5L, Lipase 452H CBC/BMP Laboratory Tests 09/11/20 06:23 Microbiology Microbiology 09/10/20 Blood Culture - Preliminary, Resulted No growth after 24 hours . All specim... 09/10/20 Blood Culture - Preliminary, Resulted No growth after 24 hours . All specim... 09/10/20 Urine Culture, Received Pending ANDREI MCGARRY DO Sep 11, 2020 18:51
[2020-09-12 02:00] VITALS: BP 121/75
[2020-09-12] MEDS: HYDROmorphone HCL 2 MG/ML 1ML VIAL (J1170) IV PRN ×4 (02:16→22:22)
[2020-09-12 06:00] VITALS: BP 124/78
[2020-09-12] MEDS: LEVOTHYROXINE 88MCG TABLET (0.088 MG) PO SCH (06:25)
[2020-09-12] MEDS: PIPERACILLIN/TAZOBACTAM SOD 3.375 GM in D5W MINI-BAG PLUS 50 ML IV SCH (06:25)
[2020-09-12 06:46] LABS: HEMOGLOBIN 11.1 g/dl (12.0-15.5); MEAN CORPUSCULAR HEMOGLOBIN 33.9 pg (27.0-33.0); MEAN CORPUSCULAR HGB CONC 32.6 g/dl (32.0-36.5); RED BLOOD COUNT 3.27 10^6/uL (4.00-5.40); WHITE BLOOD COUNT 7.7 10^3/uL (4.0-10.0)
[2020-09-12 06:50] LABS: PLATELET COUNT, AUTOMATED 94 10^3/uL (150-450)
[2020-09-12 07:21] LABS: ALBUMIN 2.1 GM/DL (3.2-5.2); ALT/SGPT 22 U/L (12-78); BILIRUBIN,TOTAL 1.7 MG/DL (0.2-1.0); BLOOD UREA NITROGEN 4 MG/DL (7-18); CALCIUM LEVEL 7.9 MG/DL (8.5-10.1); CARBON DIOXIDE LEVEL 28 MEQ/L (21-32); CHLORIDE LEVEL 100 MEQ/L (98-107); CREATININE FOR GFR 0.58 MG/DL (0.55-1.30); GLOMERULAR FILTRATION RATE > 60.0 (>60); GLUCOSE, FASTING 91 MG/DL (70-100); LIPASE 375 U/L (73-393); POTASSIUM SERUM 3.2 MEQ/L (3.5-5.1); SODIUM LEVEL 133 MEQ/L (136-145); TOTAL PROTEIN 6.6 GM/DL (6.4-8.2)
[2020-09-12] MEDS ORDERED: POTASSIUM CHLORIDE 10 MEQ SR TABLET PO ONE (08:00)
[2020-09-12] MEDS: DOCUSATE SODIUM 100MG CAPSULE PO SCH ×2 (08:27→20:23)
[2020-09-12] MEDS: MIRALAX *UNIT DOSE* 17GM PACKET PO SCH (08:27)
[2020-09-12] MEDS: PROPRANOLOL 60 MG LA CAP PO SCH (08:27)
[2020-09-12] MEDS: PANTOPRAZOLE 40MG TAB (PROTONIX) PO SCH (08:27)
[2020-09-12] MEDS: SENNA 8.6 MG TAB (SENOKOT) PO SCH (08:27)
[2020-09-12] MEDS ORDERED: FUROSEMIDE 40MG/4ML VIAL (J1940) IV ONE (08:45)
[2020-09-12] MEDS ORDERED: PERCOCET 5MG/325MG TAB PO PRN (08:55)
[2020-09-12] MEDS: FUROSEMIDE 40MG/4ML VIAL (J1940) IV SCH ×2 (09:53→16:46)
[2020-09-12] MEDS: cefTRIAXone SOD 1 GM in D5W MINI-BAG PLUS 50 ML IV SCH ×2 (09:53→11:36)
[2020-09-12 10:00] VITALS: BP 136/92
[2020-09-12] MEDS: MORPHINE 4 MG/ML 1ML VIAL/SYRINGE (J2270) IV PRN ×3 (11:35→17:29)
[2020-09-12] MEDS: ONDANSETRON 4MG/2ML VIAL IV PRN (11:35)
[2020-09-12] MEDS: GASTROGRAFIN SOLUTION 30ML PO SCH ×2 (11:53→12:23)
--- NOTE | 2020-09-12 12:54 | IPNPDOC ---
Subjective Date Seen The patient was seen on 09/12/20. Subjective Chief Complaint/HPI Mrs. Ibarra is a 39 year old female with ITP who presents with abdominal pain and found to have acute pancreatitis. This morning, she was interested in going home, but she still had some barriers to discharge. Switched IV Dilaudid to Percocet and full liquids to regular diet. She became nauseous and pain was not controlled. Changed Percocet to IV morphine, and regular diet back to full liquids. Will re-image the abdomen to look for changes. Since there were kidney stones on left side, will also order US kidneys. Contrast study may obscure s tones. Of note, her pain is left lateral and left back. Worse with movement. This pain may be more related to nephrolithiasis than pancreatitis. Objective Physical Examination General Exam: Positive: Alert, Cooperative Eye Exam: Positive: EOMI; Negative: Sclera icteric ENT Exam: Positive: Atraumatic Chest Exam: Positive: Clear to auscultation; Negative: Rales, Rhonchi, Wheezing Heart Exam: Positive: Rate Normal, Regular Rhythm Abdomen Exam: Positive: Normal bowel sounds, Soft, Tenderness (left sided pain and tenderness) Extremity Exam: Positive: Edema (very mild pitting edema) Neuro Exam: Positive: Normal Speech Psych Exam: Positive: Mental status NL, Mood NL Assessment /Plan Assessment Mrs. Ibarra is a 39 year old female with ITP who presents with abdominal pain and found to have acute pancreatitis. She has hypertriglyceridemia which may be the etiology of her pancreatitis. Triglycerides did respond to the insulin drip and have remained low. Appetite has returned and did well with clear liquids. Did not do well with solids, we'll go back to full liquids. Otherwise, UA is suggestive of UTI. Grew Klebsiella resistant to Zosyn. Switched antibitoics to Ceftriaxone which is sensitive to. Klebsiella. Otherwise, her platelets are low, but improving. Hematology/oncology following, recommendations appreciated. Hematology/oncology monitoring platelets at this time. Plan/VTE VTE Prophylaxis Ordered?: Yes VTE Exclusion Pharmacological: Thrombocytopenia Plan 1. Acute pancreatitis -Lipase of 4474 on admission, now resolved -Triglycerides elevated at 3205, responded to insulin -Appetite returned, did not tolerate solids. We'll do full liquids -Avoid ketorolac due to thrombocytopenia and potential hemorrhagic conversion of pancreatitis -Re-image the abdomen since abdominal pain not improving 2. Klebsiella UTI -Patient did report dysuria earlier in hospitalization -Klebsiella resistant to Zosyn -Switched to Ceftriaxone 3. Nephrolithiasis -She has had obstructing stones in the past -Will order US kidney to look for stones. Contrast study may obscure stones 4. Hypertriglyceridemia -Triglycerides initially elevated at 3205 -Responded to insulin drip and now resolved 5. ITP -Hematology/oncology was consulted -Monitoring platelets at this time 6. Hypothyroidism -Continue Levothyroxine 7. Anxiety/Depression -Continue desvenlafaxine and hydroxyzine as needed 8. GERD -Started Protonix 9. DVT ppx -Compression stockings Disposition: Pending improvement in pain control and tolerating a solid diet. VS, I&O, 24H, Fishbone Vital Signs/I&O Vital Signs Date Time Temp Pulse Resp B/P (MAP) Pulse Ox O2 Delivery O2 Flow Rate FiO2 09/12/20 11:54 16 Room Air 09/12/20 10:00 98.5 85 136/92 (107) 98 09/11/20 06:00 2.0 I&O- Last 24 Hours up to 6 AM 09/12/20 05:59 Intake Total 3260 ml Output Total 3950 ml Balance -690 ml Laboratory Data 24H LABS Laboratory Tests 2 09/12/20 06:15: Nucleated Red Blood Cells % (auto) 0.0, Anion Gap 5L, Glomerular Filtration Rate > 60.0, Calcium Level 7.9#L, Total Bilirubin 1.7H, Aspartate Amino Transf (AST/SGOT) 34, Alanine Aminotransferase (ALT/SGPT) 22, Alkaline Phosphatase 79, Total Protein 6.6, Albumin 2.1L, Albumin/Globulin Ratio 0.5L, Lipase 375 CBC/BMP Laboratory Tests 09/12/20 06:15 Microbiology Microbiology 09/10/20 Blood Culture - Preliminary, Resulted No Growth after 48 hours. All Specime... 09/10/20 Blood Culture - Preliminary, Resulted No Growth after 48 hours. All Specime... 09/10/20 Urine Culture - Final, Complete Klebsiella Pneumoniae ANDREI MCGARRY 12, 2021 12:54
[2020-09-12] MEDS ORDERED: ISOVUE-370 76% 100ML VIAL As Ordered ONE (13:22)
[2020-09-12 14:00] VITALS: BP 118/80
--- NOTE | 2020-09-12 14:03 | REP ---
INDICATION: Persistent abdominal pain, pancreatitis,nephrolithiasis, UTI. COMPARISON: 09/10/2020 TECHNIQUE: Axial contrast-enhanced images from the lung bases to the pubic symphysis using oral and 100 cc Isovue 370 intravenous contrast material. Coronal and sagittal reformations obtained. This CT examination was performed using the following dose reduction techniques: Automated exposure control, adjustment of mA and/or kv according to the patient's size, and the use of iterative reconstruction technique. FINDINGS: Bilateral pleural effusions and bibasilar atelectasis along with left lower lobe consolidation relatively similar to prior examination. Peripancreatic inflammatory changes and ascites again noted and similar to prior examination. Subtle low-density changes to the pancreatic tail are again noted and similar to prior examination suggesting possible area of necrosis. No discrete rim enhancing fluid collection identified to suggest formed pseudocyst or abscess. There appears to be decreased ascites in the pelvis when compared to prior examination. Liver, spleen, bilateral adrenal glands and kidneys are relatively normal/stable. Fatty infiltration to the liver along with small nonobstructing left renal calculus again noted and unchanged. Prior cholecystectomy. The enteric system is without obstruction or acute inflammatory process. Pelvis demonstrates normal bladder and age-appropriate uterus/adnexa. Abdominal aorta without aneurysm or dissection. Musculoskeletal structures intact. IMPRESSION: 1. With the exception of mildly decreased ascites fluid into the pelvis, sequelae of pancreatitis remain essentially unchanged. 2. No new acute abdominopelvic process appreciated. 3. Bibasilar atelectasis, left lower lobe consolidation, and pleural effusions unchanged. <Electronically signed by Jhonny Hope > 09/12/20 [id number]
[2020-09-12] MEDS ORDERED: LIDOCAINE 1% MDV 20ML VIAL As Ordered ONE (14:44)
[2020-09-12] MEDS: SIMETHICONE 80MG CHEW TAB PO PRN (16:46)
--- NOTE | 2020-09-12 16:49 | REP ---
INDICATION: Difficult veins. COMPARISON: None. TECHNIQUE: The procedure was performed under the direct supervision of Dr. Contreras. The risks and benefits of the procedure were explained to the patient and informed consent was obtained. The right basilic vein was localized using ultrasound guidance. The skin was prepped and draped in a sterile fashion. 1% lidocaine was used as a local anesthetic. Using ultrasound guidance the basilic vein was cannulated and a 0.018 guidewire was inserted. The needle was removed and a 4.5 Syrian dilator and peel-away sheath was inserted over the guidewire. A 4.5 Syrian single lumen catheter was left a length of 16.5 cm. The dilator was removed and the catheter was inserted over the guidewire. The peel-away sheath was removed and the catheter was flushed with heparinized saline as per hospital protocol. The catheter was affixed to the skin and a sterile dressing was applied. The patient tolerated the procedure well and there were no immediate complications. After the appropriate amount to monitor convalescence the patient was discharged from the department. FINDINGS: None IMPRESSION: Midline catheter insertion right basilic vein. <Electronically signed by Juan F Joshi > 09/12/20 2095 <Electronically signed by Yovanny Contreras > 09/12/20 [id number]
[2020-09-12] MEDS ORDERED: SODIUM CHLORIDE 0.9% INJ 10 ML SYR IV PRN (17:10)
[2020-09-12] MEDS: SODIUM CHLORIDE 0.9% INJ 10 ML SYR IV SCH (17:28)
--- NOTE | 2020-09-12 18:42 | REP ---
INDICATION: Kidney stones COMPARISON: None TECHNIQUE: Real time melton scale ultrasound examination using curved array transducer. FINDINGS: Bilateral kidneys are normal in contour, size, echogenicity, and reniform shape. No hydronephrosis, nephrolithiasis, cystic or renal mass lesion. Right kidney measures 12.4 x 5.7 x 5.9 cm. Left kidney measures 12.5 x 6.0 x 5.7 cm and the punctate 1 mm calculus identified on recent CT is not visible by ultrasound. Bladder is grossly unremarkable and bilateral ureteral jets are noted. IMPRESSION: 1. Normal renal ultrasound. 1 mm calculus identified on recent CT is not visible by ultrasound. <Electronically signed by Jhonny Hope > 09/12/20 [id number]
[2020-09-12 18:57] VITALS: BP 126/86
[2020-09-12] MEDS: ACETAMINOPHEN TAB 650MG DOSE (2X325MG) PO PRN (19:20)
[2020-09-12] MEDS: NS 1,000 ML IV SCH (19:22)
[2020-09-12 20:18] LABS: LIPASE 430 U/L (73-393); TRIGLYCERIDES LEVEL 175 MG/DL (<150)
[2020-09-12] MEDS: metroNIDAZOLE 500 MG in IV 1 EA IV SCH (20:23)
[2020-09-12 22:00] VITALS: BP 123/74
[2020-09-13] MEDS: NS 1,000 ML IV SCH ×3 (01:37→11:00)
[2020-09-13] MEDS: HYDROmorphone HCL 2 MG/ML 1ML VIAL (J1170) IV PRN ×7 (02:34→23:21)
[2020-09-13] MEDS: metroNIDAZOLE 500 MG in IV 1 EA IV SCH ×3 (04:38→20:23)
[2020-09-13] MEDS: SIMETHICONE 80MG CHEW TAB PO PRN (04:48)
[2020-09-13] MEDS ORDERED: FUROSEMIDE 40MG/4ML VIAL (J1940) IV ONE (05:25)
[2020-09-13] MEDS: LEVOTHYROXINE 88MCG TABLET (0.088 MG) PO SCH (05:48)
[2020-09-13 06:00] VITALS: BP 118/78
[2020-09-13] MEDS: SODIUM CHLORIDE 0.9% INJ 10 ML SYR IV SCH ×2 (06:00→17:02)
[2020-09-13 06:44] LABS: HEMOGLOBIN 11.6 g/dl (12.0-15.5); MEAN CORPUSCULAR HEMOGLOBIN 34.1 pg (27.0-33.0); MEAN CORPUSCULAR HGB CONC 32.2 g/dl (32.0-36.5); MEAN CORPUSCULAR VOLUME 105.9 fl (80.0-96.0); PLATELET COUNT, AUTOMATED 168 10^3/uL (150-450); WHITE BLOOD COUNT 10.7 10^3/uL (4.0-10.0)
[2020-09-13 07:15] LABS: ALBUMIN 2.4 GM/DL (3.2-5.2); ALT/SGPT 22 U/L (12-78); BILIRUBIN,TOTAL 1.2 MG/DL (0.2-1.0); BLOOD UREA NITROGEN 5 MG/DL (7-18); CALCIUM LEVEL 7.7 MG/DL (8.5-10.1); CARBON DIOXIDE LEVEL 29 MEQ/L (21-32); CHLORIDE LEVEL 102 MEQ/L (98-107); GLOMERULAR FILTRATION RATE > 60.0 (>60); GLUCOSE, FASTING 99 MG/DL (70-100); LIPASE 393 U/L (73-393); PHOSPHORUS LEVEL 1.8 MG/DL (2.5-4.9); POTASSIUM SERUM 3.3 MEQ/L (3.5-5.1); SODIUM LEVEL 138 MEQ/L (136-145); TOTAL PROTEIN 6.4 GM/DL (6.4-8.2); TRIGLYCERIDES LEVEL 154 MG/DL (<150)
[2020-09-13 07:48] LABS: MAGNESIUM LEVEL 1.9 MG/DL (1.8-2.4)
[2020-09-13] MEDS: MIRALAX *UNIT DOSE* 17GM PACKET PO SCH (08:30)
[2020-09-13] MEDS: FUROSEMIDE 40MG/4ML VIAL (J1940) IV SCH ×2 (08:32→17:02)
[2020-09-13] MEDS: DOCUSATE SODIUM 100MG CAPSULE PO SCH ×2 (08:33→20:23)
[2020-09-13] MEDS: PANTOPRAZOLE 40MG TAB (PROTONIX) PO SCH (08:33)
[2020-09-13] MEDS: ACETAMINOPHEN TAB 650MG DOSE (2X325MG) PO PRN ×2 (08:33→22:33)
[2020-09-13] MEDS: PROPRANOLOL 60 MG LA CAP PO SCH (08:33)
[2020-09-13] MEDS: SENNA 8.6 MG TAB (SENOKOT) PO SCH (08:33)
[2020-09-13] MEDS ORDERED: POTASSIUM CHLORIDE 10% LIQ 20 MEQ/15 ML UDC PO ONE (09:00)
[2020-09-13] MEDS: KCL 10MEQ/100ML SWI (KRUN) 10 MEQ in IV 1 EA IV SCH ×4 (09:24→15:42)
[2020-09-13 10:00] VITALS: BP 113/76
[2020-09-13] MEDS: diphenhydrAMINE 50MG/ML VIAL (J1200) IV PRN (10:37)
[2020-09-13] MEDS: cefTRIAXone SOD 1 GM in D5W MINI-BAG PLUS 50 ML IV SCH (12:13)
[2020-09-13 13:42] LABS: BLOOD UREA NITROGEN 5 MG/DL (7-18); CARBON DIOXIDE LEVEL 31 MEQ/L (21-32); CHLORIDE LEVEL 101 MEQ/L (98-107); CREATININE FOR GFR 0.69 MG/DL (0.55-1.30); GLOMERULAR FILTRATION RATE > 60.0 (>60); GLUCOSE, FASTING 105 MG/DL (70-100); SODIUM LEVEL 138 MEQ/L (136-145)
[2020-09-13 14:00] VITALS: BP 102/65
[2020-09-13] MEDS ORDERED: QUEtiapine FUMARATE 25 MG TAB PO ONE (14:00)
--- NOTE | 2020-09-13 15:05 | IPNPDOC ---
Subjective Date Seen The patient was seen on 09/13/20. Subjective Chief Complaint/HPI Mrs. Ibarra is a 39 year old female with ITP who presents with abdominal pain and found to have acute pancreatitis. Last night, she spike a fever and did not tolerate her clear liquid diet. She was reverted back to NPO diet and started on IV fluids. This morning, she still has diffuse abdominal pain. Reached out to General surgery, Dr. Collins, who will see the patient, recommendations appreciated. Objective Physical Examination General Exam: Positive: Alert, Cooperative, Mild Distress Eye Exam: Positive: EOMI; Negative: Sclera icteric ENT Exam: Positive: Atraumatic Chest Exam: Positive: Clear to auscultation; Negative: Rales, Rhonchi, Wheezing Heart Exam: Positive: Rate Normal, Regular Rhythm Abdomen Exam: Positive: Normal bowel sounds, Soft, Tenderness (left sided pain and tenderness) Extremity Exam: Positive: Edema (very mild pitting edema) Neuro Exam: Positive: Normal Speech Psych Exam: Positive: Mental status NL, Mood NL Assessment /Plan Assessment Mrs. Ibarra is a 39 year old female with ITP who presents with abdominal pain and found to have acute pancreatitis. She has hypertriglyceridemia which may be the etiology of her pancreatitis. Triglycerides did respond to the insulin drip and have remained low. We have been going back and forth between liquid diet and solid diet. Yesterday, she could not tolerate liquid diet. She was made NPO again. General surgery consulted for acute severe abdominal pain. Otherwise, UA is suggestive of UTI. Grew Klebsiella resistant to Zosyn. Switched antibitoics to Ceftriaxone which is sensitive to Klebsiella. Otherwise, her platelets were initially low, but now improved. Hematology/oncology following and is just monitoring platelets. Plan/VTE VTE Prophylaxis Ordered?: Yes VTE Exclusion Pharmacological: Thrombocytopenia Plan 1. Acute pancreatitis -Lipase of 4474 on admission, now resolved -Triglycerides elevated at 3205, responded to insulin -Could not tolerate liquid diet, back to NPO -Avoid ketorolac due to thrombocytopenia and potential hemorrhagic conversion of pancreatitis -General surgery consulted for acute abdominal pain. Lipase nearly resolved, but patient still has severe abdominal pain. Kidney stones are small and should not be causing diffuse abdominal pain. General surgery recommendations appreciated. -On Ceftriaxone and Metronidazole for potential abdominal infection. She had fever on 09/12/2020, pending blood culture results. 2. Klebsiella UTI -Patient did report dysuria earlier in hospitalization -Klebsiella resistant to Zosyn -Switched to Ceftriaxone 3. Nephrolithiasis -She has had obstructing stones in the past -Stones are small, will pass with IVF 4. Hypertriglyceridemia -Triglycerides initially elevated at 3205 -Responded to insulin drip and now resolved 5. ITP -Hematology/oncology was consulted -Monitoring platelets at this time 6. Hypothyroidism -Continue Levothyroxine 7. Anxiety/Depression -Continue desvenlafaxine and hydroxyzine as needed 8. GERD -Started Protonix 9. DVT ppx -Compression stockings Disposition: Pending improvement in pain control and tolerating a solid diet. General surgery consulted, recommendations appreciated VS, I&O, 24H, Fishbone Vital Signs/I&O Vital Signs Date Time Temp Pulse Resp B/P (MAP) Pulse Ox O2 Delivery O2 Flow Rate FiO2 09/13/20 14:00 98.0 67 17 102/65 (77) 96 Room Air 09/11/20 06:00 2.0 I&O- Last 24 Hours up to 6 AM 09/13/20 06:00 Intake Total 3440 ml Output Total 9200 ml Balance -5760 ml Laboratory Data 24H LABS Laboratory Tests 2 09/12/20 18:32: Lactic Acid Level 1.0 09/12/20 19:28: Triglycerides Level 175H, Lipase 430H 09/13/20 06:21: Triglycerides Level 154H, Lipase 393, Nucleated Red Blood Cells % (auto) 0.2H, Anion Gap 7L, Glomerular Filtration Rate > 60.0, Calcium Level 7.7L, Whole Blood Ionized Calcium 4.2L, Phosphorus Level 1.8L, Magnesium Level 1.9, Total Bilirubin 1.2H, Aspartate Amino Transf (AST/SGOT) 27, Alanine Aminotransferase (ALT/SGPT) 22, Alkaline Phosphatase 98, Total Protein 6.4, Albumin 2.4L, [place] min/Globulin Ratio 0.6L 09/13/20 12:48: Anion Gap 6L, Glomerular Filtration Rate > 60.0, Calcium Level 8.0L CBC/BMP Laboratory Tests 09/13/20 06:21 09/13/20 12:48 Microbiology Microbiology 09/12/20 Blood Culture, Received Pending 09/12/20 Blood Culture, Received Pending 09/10/20 Blood Culture - Preliminary, Resulted No Growth after 72 hours. All specime... 09/10/20 Blood Culture - Preliminary, Resulted No Growth after 72 hours. All specime... 09/10/20 Urine Culture - Final, Complete Klebsiella Pneumoniae ANDREI MCGARRY DO Sep 13, 2020 15:05
[2020-09-13] MEDS ORDERED: KCL 10MEQ IN STERILE WATER 100ML As Ordered ONE (15:32)
[2020-09-13] MEDS: KCL 20MEQ IN 0.45NS 1000ML 1,000 ML IV SCH ×2 (15:43→23:21)
[2020-09-13 18:57] VITALS: BP 100/64
[2020-09-13 19:04] LABS: BLOOD UREA NITROGEN 6 MG/DL (7-18); CALCIUM LEVEL 8.4 MG/DL (8.5-10.1); CARBON DIOXIDE LEVEL 30 MEQ/L (21-32); CHLORIDE LEVEL 100 MEQ/L (98-107); CREATININE FOR GFR 0.66 MG/DL (0.55-1.30); GLOMERULAR FILTRATION RATE > 60.0 (>60); GLUCOSE, FASTING 84 MG/DL (70-100); POTASSIUM SERUM 3.4 MEQ/L (3.5-5.1); SODIUM LEVEL 136 MEQ/L (136-145)
[2020-09-13 22:00] VITALS: BP 103/63
[2020-09-14] MEDS: HYDROmorphone HCL 2 MG/ML 1ML VIAL (J1170) IV PRN ×3 (04:15→11:41)
[2020-09-14] MEDS: metroNIDAZOLE 500 MG in IV 1 EA IV SCH ×3 (04:15→20:08)
[2020-09-14] MEDS: SODIUM CHLORIDE 0.9% INJ 10 ML SYR IV SCH ×2 (05:01→16:29)
[2020-09-14 06:00] VITALS: BP 104/61
[2020-09-14] MEDS: KCL 20MEQ IN 0.45NS 1000ML 1,000 ML IV SCH ×4 (06:00→22:29)
[2020-09-14] MEDS: LEVOTHYROXINE 88MCG TABLET (0.088 MG) PO SCH (06:09)
[2020-09-14 06:42] LABS: HEMATOCRIT 34.9 % (36.0-47.0); HEMOGLOBIN 11.1 g/dl (12.0-15.5); MEAN CORPUSCULAR HEMOGLOBIN 33.8 pg (27.0-33.0); MEAN CORPUSCULAR HGB CONC 31.8 g/dl (32.0-36.5); MEAN CORPUSCULAR VOLUME 106.4 fl (80.0-96.0); PLATELET COUNT, AUTOMATED 187 10^3/uL (150-450); RED BLOOD COUNT 3.28 10^6/uL (4.00-5.40); WHITE BLOOD COUNT 14.1 10^3/uL (4.0-10.0)
[2020-09-14 07:21] LABS: ALBUMIN 2.5 GM/DL (3.2-5.2); ALT/SGPT 18 U/L (12-78); BILIRUBIN,TOTAL 0.9 MG/DL (0.2-1.0); BLOOD UREA NITROGEN 7 MG/DL (7-18); CALCIUM LEVEL 8.2 MG/DL (8.5-10.1); CARBON DIOXIDE LEVEL 28 MEQ/L (21-32); CHLORIDE LEVEL 101 MEQ/L (98-107); CREATININE FOR GFR 0.53 MG/DL (0.55-1.30); GLOMERULAR FILTRATION RATE > 60.0 (>60); GLUCOSE, FASTING 85 MG/DL (70-100); LIPASE 364 U/L (73-393); POTASSIUM SERUM 3.7 MEQ/L (3.5-5.1); SODIUM LEVEL 134 MEQ/L (136-145); TOTAL PROTEIN 6.2 GM/DL (6.4-8.2)
[2020-09-14] MEDS: FUROSEMIDE 40MG/4ML VIAL (J1940) IV SCH ×2 (08:28→16:29)
[2020-09-14] MEDS: PROPRANOLOL 60 MG LA CAP PO SCH (08:29)
[2020-09-14] MEDS: DOCUSATE SODIUM 100MG CAPSULE PO SCH ×2 (08:29→20:09)
[2020-09-14] MEDS: SENNA 8.6 MG TAB (SENOKOT) PO SCH (08:29)
[2020-09-14] MEDS: MIRALAX *UNIT DOSE* 17GM PACKET PO SCH (08:29)
[2020-09-14] MEDS: PANTOPRAZOLE 40MG TAB (PROTONIX) PO SCH (08:29)
[2020-09-14 10:00] VITALS: BP 127/66
[2020-09-14] MEDS: cefTRIAXone SOD 1 GM in D5W MINI-BAG PLUS 50 ML IV SCH (10:43)
--- NOTE | 2020-09-14 11:26 | REP ---
INDICATION: mesenteric ischemia? pain in left upper quadrant (watershed) COMPARISON: 09/12/2020 TECHNIQUE: Axial contrast-enhanced images from the lung bases to the pubic symphysis with images obtained at maximal arterial enhancement. Coronal and sagittal reformations obtained along with reconstructed coronal MIP series. This CT examination was performed using the following dose reduction techniques: Automated exposure control, adjustment of mA and/or kv according to the patient's size, and use of iterative reconstruction technique. FINDINGS: Lung bases again demonstrate left lower lobe consolidation along with moderate bibasilar atelectasis and small left pleural effusion unchanged from prior examination. Pancreatitis with peripancreatic inflammatory stranding and fluid including possible forming pseudocyst, mesenteric edema and ascites extending along the pericolic gutter remains unchanged. Pancreatic enhancement remains unchanged again demonstrating subtle low-density changes at the tail. No discrete drainable collection or rim enhancing fluid collection yet identified. Small and large bowel without obstruction or obvious acute inflammatory process. No evidence for bowel perforation. No free air. Pelvis demonstrates normal bladder and age-appropriate uterus/adnexa including presumed physiologic right ovarian cyst. Abdominal aorta and arterial vasculature including celiac axis with branch vessels, superior mesenteric artery, inferior mesenteric artery, and bilateral renal arteries along with iliac arteries are normal. Portal vein enhancement including splenic vein, superior mesenteric vein and intrahepatic portal veins demonstrate satisfactory enhancement for technique. No free air. No retroperitoneal adenopathy. Musculoskeletal structures are intact and stable. IMPRESSION: 1. Findings consistent with pancreatitis unchanged from prior examination. 2. Abdominal aorta and arterial vasculature as well as portal venous system are normal. 3. The enteric system is relatively normal and without obstruction, perforation, or focal inflammatory change. <Electronically signed by Jhonny Hope > 09/14/20 1120
[2020-09-14] MEDS ORDERED: CHLORASEPTIC SPRAY MT PRN (13:35)
[2020-09-14 14:00] VITALS: BP 118/68
--- NOTE | 2020-09-14 14:47 | IPN ---
PROGRESS NOTE DATE: 09/14/2020 Patient continues to have some pain and she has been afebrile, however. White count did bump a little bit this morning, but overall her chemistries are staying within normal limits, specifically the lipase and her liver function tests. She still complains of pain in her back and she is better than she was yesterday. The patient had a mesenteric angiogram/CT angiogram which essentially showed normal vasculature and I anticipate this was performed because of pain out of proportion to what is appreciated on her physical exam, because she does not have significant tenderness on exam. But, in any case, without any significant history of this I feel that this is an unlikely source. In any case, she still has pancreatitis appreciated on the CT scan with the peripancreatic inflammation and probably had an exacerbation when she bumped up her meal from a clear liquid to a regular diet. Thus, we will probably need to have some prolonged amount of clear liquids/nothing by mouth prior to starting her on a regular diet. At this point, she is still having discomfort and pain and I discussed this with the primary who feels that it is reasonable to continue her nothing by mouth for now, and that is a very reasonable next step, and, more importantly, just to make sure that there is nothing continuing to be problematic on the laboratory findings tomorrow. But otherwise, at this point, no surgical intervention is necessary and supportive care is reasonable.
[2020-09-14] MEDS: HYDROMORPHONE HCL 0.5 MG/ 0.5 ML SYRINGE (J1170 PER 1) IV PRN ×3 (16:32→23:55)
--- NOTE | 2020-09-14 16:55 | IPNPDOC ---
Subjective Date Seen The patient was seen on 09/14/20. Subjective Chief Complaint/HPI Mrs. Ibarra is a 39 year old female with ITP who presents with abdominal pain and found to have acute pancreatitis. Overnight she remained afebrile but she still required frequent analgesics. Denies any nausea, chest pain, or dyspnea. Still has abdominal pain more in the left flank area. This morning, due to pain out of proportion pain ordered CT angiogram of abdomen and pelvis which was negative for ischemia, but did demonstrate the acute pancreatitis. Objective Physical Examination General Exam: Positive: Alert, Cooperative, Mild Distress Eye Exam: Positive: EOMI; Negative: Sclera icteric ENT Exam: Positive: Atraumatic Chest Exam: Positive: Clear to auscultation; Negative: Rales, Rhonchi, Wheezing Heart Exam: Positive: Rate Normal, Regular Rhythm Abdomen Exam: Positive: Normal bowel sounds, Soft, Tenderness (left sided pain and tenderness) Extremity Exam: Positive: Edema (very mild pitting edema) Neuro Exam: Positive: Normal Speech Psych Exam: Positive: Mental status NL, Mood NL Assessment /Plan Assessment Mrs. Ibarra is a 39 year old female with ITP who presents with abdominal pain and found to have acute pancreatitis. She has hypertriglyceridemia which may be the etiology of her pancreatitis. Triglycerides did respond to the insulin drip and have remained low. We have been going back and forth between liquid diet and solid diet. Yesterday, she could not tolerate liquid diet. She was made NPO again. General surgery consulted for acute severe abdominal pain. Recommended NPO and continued supportive care. Otherwise, UA is suggestive of UTI. Grew Klebsiella resistant to Zosyn. Switched antibitoics to Ceftriaxone which is sensitive to Klebsiella. Added on metronidazole to cover for intra-abdominal pathogens. Otherwise, her platelets were initially low, but now improved. Hematology/oncology following and monitoring platelets. Plan/VTE VTE Prophylaxis Ordered?: Yes VTE Exclusion Pharmacological: Thrombocytopenia Plan 1. Acute pancreatitis -Lipase of 4474 on admission, now resolved -Triglycerides elevated at 3205, responded to insulin -Could not tolerate liquid diet, back to NPO -Avoid ketorolac due to thrombocytopenia and potential hemorrhagic conversion of pancreatitis -General surgery consulted for acute abdominal pain. Lipase nearly resolved, but patient still has severe abdominal pain. Kidney stones are small and should not be causing diffuse abdominal pain. General surgery recommendations appreciated. General surgery looked over the imaging. Severe acute pancreatitis. Recommend continuing NPO and supportive care. -On Ceftriaxone and Metronidazole for potential abdominal infection. She had fever on 09/12/2020, pending blood culture results. 2. Klebsiella UTI -Patient did report dysuria earlier in hospitalization -Klebsiella resistant to Zosyn -Switched to Ceftriaxone 3. Nephrolithiasis -She has had obstructing stones in the past -Stones are small, will pass with IVF 4. Hypertriglyceridemia -Triglycerides initially elevated at 3205 -Responded to insulin drip and now resolved 5. ITP -Hematology/oncology was consulted -Monitoring platelets at this time 6. Hypothyroidism -Continue Levothyroxine 7. Anxiety/Depression -Continue desvenlafaxine and hydroxyzine as needed 8. GERD -Started Protonix 9. DVT ppx -Compression stockings Disposition: Pending improvement in pain control. When pain improves, can attempt diet. May need to consider TPN if continues to be NPO VS, I&O, 24H, Fishbone Vital Signs/I&O Vital Signs Date Time Temp Pulse Resp B/P (MAP) Pulse Ox O2 Delivery O2 Flow Rate FiO2 09/14/20 16:32 15 Room Air 09/14/20 14:00 96.0 70 118/68 (85) 96 09/11/20 06:00 2.0 I&O- Last 24 Hours up to 6 AM 09/14/20 05:59 Intake Total 2710 ml Output Total 2950 ml Balance -240 ml Laboratory Data 24H LABS Laboratory Tests 2 09/13/20 17:10: Urine Color JUSTINE, Urine Appearance CLEAR, Urine pH 6.0, Urine Specific [place] 1.023, Urine Protein 2+H, Urine Glucose (UA) NEGATIVE, Urine Ketones NEGATIVE, Urine Blood 3+H, Urine Nitrite NEGATIVE, Urine Bilirubin 2+H, Urine Urobilinogen 4.0H, Urine Leukocyte Esterase 1+H, Urine WBC (Auto) 6H, Urine RBC (Auto) TNTCH, Urine Hyaline Casts (Auto) 0, Urine Bacteria (Auto) NEGATIVE, Urine Squamous Epithelial Cells 4, Urine Mucus (Auto) SMALL, Urine Sperm (Auto) 09/13/20 18:12: Anion Gap 6L, Glomerular Filtration Rate > 60.0, Calcium Level 8.4L 09/14/20 06:24: Anion Gap 5L, Glomerular Filtration Rate > 60.0, Calcium Level 8.2L, Nucleated Red Blood Cells % (auto) 0.1H, Total Bilirubin 0.9, Aspartate Amino Transf (AST/SGOT) 25, Alanine Aminotransferase (ALT/SGPT) 18, Alkaline Phosphatase 84, Total Protein 6.2L, Albumin 2.5L, Albumin/Globulin Ratio 0.7L, Lipase 364 CBC/BMP Laboratory Tests 09/13/20 18:12 09/14/20 06:24 Microbiology Microbiology 09/14/20 Gram Stain, Received Pending 09/14/20 Sputum Culture, Received Pending 09/14/20 Respiratory Virus Panel (PCR) ([facility]) - Final, Complete 09/14/20 Group A Streptococcus Screen ([facility]) - Final, Resulted 09/14/20 Group A Streptococcus Screen ([facility]), Resulted Pending 09/13/20 Urine Culture - Final, Complete 09/12/20 Blood Culture - Preliminary, Resulted No growth after 24 hours . All specim... 09/12/20 Blood Culture - Preliminary, Resulted No growth after 24 hours . All specim... 09/10/20 Blood Culture - Preliminary, Resulted No Growth after 72 hours. All specime... 09/10/20 Blood Culture - Preliminary, Resulted No Growth after 72 hours. All specime... 09/10/20 Urine Culture - Final, Complete Klebsiella Pneumoniae ANDREI MCGARRY 14, 2021 16:55
[2020-09-14 18:00] VITALS: BP 123/72
[2020-09-14 20:00] VITALS: BP 126/78
[2020-09-15] VITALS: BP 129/80
[2020-09-15] MEDS: diphenhydrAMINE 50MG/ML VIAL (J1200) IV PRN ×2 (01:30→23:54)
[2020-09-15 04:00] VITALS: BP 124/71
[2020-09-15] MEDS: metroNIDAZOLE 500 MG in IV 1 EA IV SCH ×3 (04:59→20:07)
[2020-09-15] MEDS: LEVOTHYROXINE 88MCG TABLET (0.088 MG) PO SCH (04:59)
[2020-09-15] MEDS: HYDROMORPHONE HCL 0.5 MG/ 0.5 ML SYRINGE (J1170 PER 1) IV PRN ×5 (04:59→22:22)
[2020-09-15] MEDS: SODIUM CHLORIDE 0.9% INJ 10 ML SYR IV SCH ×2 (05:32→15:55)
[2020-09-15 06:25] LABS: HEMATOCRIT 37.3 % (36.0-47.0); HEMOGLOBIN 11.8 g/dl (12.0-15.5); MEAN CORPUSCULAR HEMOGLOBIN 33.2 pg (27.0-33.0); MEAN CORPUSCULAR HGB CONC 31.6 g/dl (32.0-36.5); MEAN CORPUSCULAR VOLUME 105.1 fl (80.0-96.0); PLATELET COUNT, AUTOMATED 261 10^3/uL (150-450); RED BLOOD COUNT 3.55 10^6/uL (4.00-5.40); WHITE BLOOD COUNT 16.9 10^3/uL (4.0-10.0)
[2020-09-15 06:59] LABS: ALBUMIN 2.3 GM/DL (3.2-5.2); ALT/SGPT 16 U/L (12-78); BILIRUBIN,TOTAL 0.6 MG/DL (0.2-1.0); BLOOD UREA NITROGEN 8 MG/DL (7-18); CALCIUM LEVEL 8.4 MG/DL (8.5-10.1); CARBON DIOXIDE LEVEL 26 MEQ/L (21-32); CHLORIDE LEVEL 100 MEQ/L (98-107); CREATININE FOR GFR 0.36 MG/DL (0.55-1.30); GLOMERULAR FILTRATION RATE > 60.0 (>60); GLUCOSE, FASTING 73 MG/DL (70-100); LIPASE 408 U/L (73-393); POTASSIUM SERUM 3.9 MEQ/L (3.5-5.1); SODIUM LEVEL 137 MEQ/L (136-145); TOTAL PROTEIN 6.2 GM/DL (6.4-8.2)
[2020-09-15] MEDS: KCL 20MEQ IN 0.45NS 1000ML 1,000 ML IV SCH ×3 (07:53→19:52)
[2020-09-15 08:45] VITALS: BP 123/88
[2020-09-15] MEDS: SENNA 8.6 MG TAB (SENOKOT) PO SCH (09:46)
[2020-09-15] MEDS: PANTOPRAZOLE 40MG TAB (PROTONIX) PO SCH (09:47)
[2020-09-15] MEDS: FUROSEMIDE 40MG/4ML VIAL (J1940) IV SCH ×2 (09:47→17:21)
[2020-09-15] MEDS: PROPRANOLOL 60 MG LA CAP PO SCH (09:47)
[2020-09-15] MEDS: MIRALAX *UNIT DOSE* 17GM PACKET PO SCH (09:47)
[2020-09-15] MEDS: DOCUSATE SODIUM 100MG CAPSULE PO SCH ×2 (09:47→20:07)
[2020-09-15] MEDS: cefTRIAXone SOD 1 GM in D5W MINI-BAG PLUS 50 ML IV SCH (09:47)
--- NOTE | 2020-09-15 10:15 | CR ---
SURGICAL CONSULTATION DATE OF CONSULTATION: 09/13/2020 REASON FOR CONSULTATION: Pancreatitis. BRIEF HISTORY OF PRESENT ILLNESS: Patient has been admitted for several days with this new onset pancreatitis. The original question was whether she has had some previous episodes of pancreatitis in the past although mostly this is a report of abdominal pains in the past not a specific diagnosis from an enzyme standpoint reportedly and when I looked back through her history over the last 10 years and labs performed in the last 10 years I do not see any elevated lipase. She states that she has had some hyperparathyroidism in the remote past as well with a high calcium level although does not present with that here today. She has had a significantly elevated triglyceride and at the time of admission here today with a triglyceride of 3205 and still is not back down to normal at this level of less than 150. In any case presents with pancreatitis with severe pain, pain in the epigastric area radiating to her back; this has been continuing and ongoing for now and I was asked to see the patient because she had failure to be able to progress her diet from a clear liquid diet to a regular diet and I am asked to make some recommendations concerning her current situation. When we look at the CT scan itself there are significant inflammatory changes around the pancreas with some fluid in the left chest typical of a sympathetic effusion associated with significant pancreatitis. She has fluid around the stomach, around the pancreas itself. There was some suggestion of pancreatitis necrosis and question developing pseudocyst although I am not really seeing the pseudocyst area and there is an area of non-perfusion, but I am not sure if that is an angle in the pancreas itself, but I am not seeing any evidence of hemorrhagic portion of this and it does not appear infected from the current situation. She states that with the pain medication she has been relatively doing well and since being n.p.o. she has not had as much discomfort as well. PAST MEDICAL AND SURGICAL HISTORY: Significant for: 1. History of ITP. 2. History of cholecystectomy. 3. History of hypertension. 4. History of 3 vaginal births. 5. History of hypercalcemia/hyperparathyroidism. 6. History of hypothyroidism. 7. History of anxiety. 8. History of palpitations. 9. History of insomnia. MEDICATIONS: Include: 1. Desvenlafaxine succinate ER. 2. Hydroxyzine. 3. Synthroid. 4. Propanol. PHYSICAL EXAMINATION: Exam reveals a 39-year-old female who looks stated age. HEENT: Unremarkable. Neck: Supple without adenopathy. Lungs: Clear anteriorly. Heart: Regular. Abdomen: Softly distended, but mildly tended in the epigastric without significant guarding, rebound or peritoneal sign; although she has gotten some recent pain medication, but I am not really appreciating any significant peritoneal signs. Extremities: Warm and well perfused. IMPRESSION AND PLAN: Patient has relatively significant and severe pancreatitis with some peripancreatic inflammation and this is sitting right on the stomach so I am not surprised whatsoever that she is having some difficult with progression of her diet - from a clear liquid to a regular diet. I do feel that it is reasonable to keep her on a clear liquid diet for a few days. I would hold off on progressing her diet for right now until her pain truly does resolve mostly or at least the majority of it prior to advancing her diet because she has all this inflammatory changes around the area. I do not feel at this point that she is an individual that will need home TPN, etc., but if this difficult with progression of the diet persists over a long period of time then we may have to consider that as an option, but once again this is still early in the process and given the significant inflammatory process I feel that it may be reasonable to progress her to a clear liquid diet over the next 24 hours and keep it that way for at least 48-72 hours before even advancing to a low-fat diet. I would not recommend the typical advancement to a full liquid diet given that there is much higher fat content as well as from a sugar content, etc.; this may actually exacerbate her discomfort.
[2020-09-15 12:00] VITALS: BP 125/87
--- NOTE | 2020-09-15 14:12 | IPNPDOC ---
Subjective Date Seen The patient was seen on 09/15/20. Subjective Chief Complaint/HPI Mrs. Ibarra is a 39 year old female with ITP who presents with abdominal pain and found to have acute pancreatitis. No nausea overnight, but continued to have abdominal pain. Still receiving Dilaudid frequently. This morning, she looks well and is willing to try a clear liquid diet. Objective Physical Examination General Exam: Positive: Alert, Cooperative Eye Exam: Positive: EOMI; Negative: Sclera icteric ENT Exam: Positive: Atraumatic Chest Exam: Positive: Clear to auscultation; Negative: Rales, Rhonchi, Wheezing Heart Exam: Positive: Rate Normal, Regular Rhythm Abdomen Exam: Positive: Normal bowel sounds, Soft, Tenderness (left sided pain and tenderness) Extremity Exam: Positive: Edema (very mild pitting edema) Neuro Exam: Positive: Normal Speech Psych Exam: Positive: Mental status NL, Mood NL Assessment /Plan Assessment Mrs. Ibarra is a 39 year old female with ITP who presents with abdominal pain and found to have acute pancreatitis. She has hypertriglyceridemia which may be the etiology of her pancreatitis. Triglycerides did respond to the insulin drip and have remained low. We have been going back and forth between liquid diet and solid diet. Yesterday, she could not tolerate liquid diet. She was made NPO again. General surgery consulted for acute severe abdominal pain. Recommended NPO and continued supportive care. Otherwise, UA is suggestive of UTI. Grew Klebsiella resistant to Zosyn. Switched antibitoics to Ceftriaxone which is sensitive to Klebsiella. Added on metronidazole to cover for intra-abdominal pathogens. Otherwise, her platelets were initially low, but now improved. Hematology/oncology following and monitoring platelets. Plan/VTE VTE Prophylaxis Ordered?: Yes VTE Exclusion Pharmacological: Thrombocytopenia Plan 1. Acute pancreatitis -Lipase of 4474 on admission, now improved -Triglycerides elevated at 3205, responded to insulin -On clear liquid diet -Avoid ketorolac due to thrombocytopenia and potential hemorrhagic conversion of pancreatitis -General surgery consulted for acute abdominal pain. Lipase nearly resolved, but patient still has severe abdominal pain. Kidney stones are small and should not be causing diffuse abdominal pain. General surgery recommendations appreciated. General surgery looked over the imaging. Severe acute pancreatitis. -On Ceftriaxone and Metronidazole for potential abdominal infection. She had fever on 09/12/2020, pending blood culture results. - Pain control with Dilaudid. Sometimes Dilaudid makes her face itchy and she scratches her face turning it red. PRN Benadryl per itching 2. Klebsiella UTI -Patient did report dysuria earlier in hospitalization -Klebsiella resistant to Zosyn -Switched to Ceftriaxone 3. Nephrolithiasis -She has had obstructing stones in the past -Stones are small, will pass with IVF 4. Hypertriglyceridemia -Triglycerides initially elevated at 3205 -Responded to insulin drip and now resolved. Not on insulin drip 5. ITP -Hematology/oncology was consulted -Monitoring platelets at this time -Resolved 6. Hypothyroidism -Continue Levothyroxine 7. Anxiety/Depression -Continue desvenlafaxine and hydroxyzine as needed 8. GERD -Started Protonix 9. DVT ppx -Compression stockings Disposition: Attempting clear liquid diet. General surgery recommending clear liquid diet for 2 to 3 days. VS, I&O, 24H, Fishbone Vital Signs/I&O Vital Signs Date Time Temp Pulse Resp B/P (MAP) Pulse Ox O2 Delivery O2 Flow Rate FiO2 09/15/20 10:50 16 Room Air 09/15/20 08:45 97.3 81 123/88 (100) 98 09/11/20 06:00 2.0 I&O- Last 24 Hours up to 6 AM 09/15/20 06:00 Intake Total 1620 ml Output Total 3140 ml Balance -1520 ml Laboratory Data 24H LABS Laboratory Tests 2 09/15/20 05:35: Nucleated Red Blood Cells % (auto) 0.0, Anion Gap 11, Glomerular Filtration Rate > 60.0, Calcium Level 8.4L, Total Bilirubin 0.6, Aspartate Amino Transf (AST/SGOT) 21, Alanine Aminotransferase (ALT/SGPT) 16, Alkaline Phosphatase 84, Total Protein 6.2L, Albumin 2.3L, Albumin/Globulin Ratio 0.6L, Lipase 408H CBC/BMP Laboratory Tests 09/15/20 05:35 Microbiology Microbiology 09/14/20 Gram Stain - Final, Resulted 09/14/20 Sputum Culture, Resulted Pending 09/14/20 Respiratory Virus Panel (PCR) ([facility]) - Final, Complete 09/14/20 Group A Streptococcus Screen ([facility]) - Final, Complete 09/14/20 Group A Streptococcus Screen ([facility]) - Final, Complete 09/13/20 Urine Culture - Final, Complete 09/12/20 Blood Culture - Preliminary, Resulted No Growth after 48 hours. All Specime... 09/12/20 Blood Culture - Preliminary, Resulted No Growth after 48 hours. All Specime... 09/10/20 Blood Culture - Final, Complete NO GROWTH AFTER 5 DAYS 09/10/20 Blood Culture - Final, Complete NO GROWTH AFTER 5 DAYS 09/10/20 Urine Culture - Final, Complete Klebsiella Pneumoniae ANDREI MCGARRY DO Sep 15, 2020 14:08
--- NOTE | 2020-09-15 15:03 | IPNPDOC ---
Text Note Date of Service The patient was seen on 09/15/20. NOTE Gen. surgery. Dr. Collins The patient is a 39-year-old female admitted for new onset pancreatitis. The patient was noted to have triglycerides of 3205 on admission 09/08/20 which is felt to be the etiology of her pancreatitis. She had an increase in her pain when her diet was changed from clear liquid to regular diet, currently this morning she is nothing by mouth. She states her pain is better, she feels less bloated. Denies nausea or vomiting. Afebrile. VSS. Gen. Resting comfortably in bed, no acute distress. Abdomen. Soft, less distended. Less abdominal discomfort. Extremities well-perfused with no edema 2520/2740, -220 Lipase 408 White blood cell count 16.9 Assessment/plan New-onset Pancreatitis Etiology is felt to be elevated triglycerides which were noted on admission up to 3205. The patient did have worsening of her symptoms when her diet was changed from clear liquids to regular diet. She has now been NPO with improvement in her abdominal pain and distention. Lipase is noted to be slightly increased at 408 with white blood cell count 16.9, this is felt likely related to her previous exacerbation with advancement in diet. Would recommend trial of clear liquids today, and likely continue with clear liquids over the next 48 hours, with plan to advance very slowly. Reviewed and discussed recommendation with hospitalist. Continue with supportive care. VS,Fishbone, I+O VS, Fishbone, I+O Laboratory Tests 09/15/20 05:35 Vital Signs Date Time Temp Pulse Resp B/P (MAP) Pulse Ox O2 Delivery O2 Flow Rate FiO2 09/15/20 14:39 17 Room Air 09/15/20 12:00 97.2 85 125/87 (100) 95 09/11/20 06:00 2.0 I&O- Last 24 Hours up to 6 AM 09/15/20 06:00 Intake Total 1620 ml Output Total 3140 ml Balance -1520 ml Kimberly Ayala Sep 15, 2020 15:03
[2020-09-15 18:00] VITALS: BP 131/88
[2020-09-15 19:09] LABS: INR 1.16; PROTHROMBIN TIME 15.1 SECONDS (12.5-14.3)
[2020-09-15 19:10] LABS: PARTIAL THROMBOPLASTIN TIME 33.5 SECONDS (24.2-38.5)
[2020-09-15 20:05] LABS: APPEARANCE, URINE CLEAR (CLEAR); BACTERIA, URINE AUTO NEGATIVE (NEGATIVE); BILIRUBIN, URINE AUTO NEGATIVE (NEGATIVE); BLOOD, URINE BLOOD 3+ (NEGATIVE); COLOR, URINE STRAW (YELLOW); GLUCOSE, URINE (UA) AUTO NEGATIVE (NEGATIVE); KETONE, URINE AUTO NEGATIVE (NEGATIVE); LEUKOCYTE ESTERASE, URINE AUTO NEGATIVE (NEGATIVE); NITRITE, URINE AUTO NEGATIVE (NEGATIVE); PROTEIN, URINE AUTO NEGATIVE (NEGATIVE); RBC, URINE AUTO 9 /HPF (0-3); SPECIFIC GRAVITY URINE AUTO 1.004 (1.002-1.035); SQUAMOUS EPITHELIAL CELL UR AU 1 /HPF (0-6); UROBILINOGEN, URINE AUTO 0.2 mg/dL (0.0-2.0); WBC, URINE AUTO 1 /HPF (0-3)
[2020-09-15] MEDS: RAMELTEON 8 MG TAB (ROZEREM) PO SCH (20:07)
[2020-09-15 22:00] VITALS: BP 136/76
[2020-09-16 02:00] VITALS: BP 131/76
[2020-09-16] MEDS: HYDROMORPHONE HCL 0.5 MG/ 0.5 ML SYRINGE (J1170 PER 1) IV PRN ×6 (02:12→20:43)
[2020-09-16] MEDS: metroNIDAZOLE 500 MG in IV 1 EA IV SCH (03:27)
[2020-09-16] MEDS: KCL 20MEQ IN 0.45NS 1000ML 1,000 ML IV SCH (05:09)
[2020-09-16] MEDS: LEVOTHYROXINE 88MCG TABLET (0.088 MG) PO SCH (05:37)
[2020-09-16] MEDS: SODIUM CHLORIDE 0.9% INJ 10 ML SYR IV SCH (05:38)
[2020-09-16 06:00] VITALS: BP 132/77
[2020-09-16 06:43] LABS: HEMATOCRIT 33.5 % (36.0-47.0); HEMOGLOBIN 10.8 g/dl (12.0-15.5); MEAN CORPUSCULAR HEMOGLOBIN 33.4 pg (27.0-33.0); MEAN CORPUSCULAR HGB CONC 32.2 g/dl (32.0-36.5); MEAN CORPUSCULAR VOLUME 103.7 fl (80.0-96.0); PLATELET COUNT, AUTOMATED 301 10^3/uL (150-450); RED BLOOD COUNT 3.23 10^6/uL (4.00-5.40); WHITE BLOOD COUNT 13.5 10^3/uL (4.0-10.0)
[2020-09-16 07:09] LABS: BLOOD UREA NITROGEN 7 MG/DL (7-18); CALCIUM LEVEL 8.7 MG/DL (8.5-10.1); CARBON DIOXIDE LEVEL 27 MEQ/L (21-32); CHLORIDE LEVEL 100 MEQ/L (98-107); CREATININE FOR GFR 0.56 MG/DL (0.55-1.30); GLOMERULAR FILTRATION RATE > 60.0 (>60); GLUCOSE, FASTING 107 MG/DL (70-100); LIPASE 543 U/L (73-393); POTASSIUM SERUM 3.4 MEQ/L (3.5-5.1); SODIUM LEVEL 134 MEQ/L (136-145)
[2020-09-16 07:10] LABS: ATYPICAL LYMPH 3 % (0-5); LYMPHOCYTES 3 % (16-44); METAMYELOCYTES 1 % (0-0); MONOCYTES 14 % (0-5); MYELOCYTES 2 % (0-0); NEUTROPHILS 76 % (28-66)
[2020-09-16 07:11] LABS: ANISOCYTOSIS 1+; PLATELET ESTIMATE NORMAL (NORMAL); POLYCHROMASIA 1+
[2020-09-16] MEDS: FUROSEMIDE 40MG/4ML VIAL (J1940) IV SCH (08:16)
[2020-09-16] MEDS: MIRALAX *UNIT DOSE* 17GM PACKET PO SCH (08:16)
[2020-09-16] MEDS: SENNA 8.6 MG TAB (SENOKOT) PO SCH (08:16)
[2020-09-16] MEDS: DOCUSATE SODIUM 100MG CAPSULE PO SCH ×2 (08:17→20:42)
[2020-09-16] MEDS: PANTOPRAZOLE 40MG TAB (PROTONIX) PO SCH (08:17)
[2020-09-16] MEDS: PROPRANOLOL 60 MG LA CAP PO SCH (08:17)
[2020-09-16] MEDS: POTASSIUM CHLORIDE 10 MEQ SR TABLET PO SCH (08:56)
[2020-09-16 10:00] VITALS: BP 128/77
[2020-09-16] MEDS: cefTRIAXone SOD 1 GM in D5W MINI-BAG PLUS 50 ML IV SCH (10:08)
--- NOTE | 2020-09-16 10:08 | IPNPDOC ---
Text Note Date of Service The patient was seen on 09/16/20. NOTE Gen. surgery. Dr. Collins The patient is a 39-year-old female admitted for new onset pancreatitis. The patient was noted to have triglycerides of 3205 on admission 09/08/20 which is felt to be the etiology of her pancreatitis. She was again advanced to clear liquids yesterday and states she is tolerating this. Today, she states her abdominal pain is improved, she rates it at a level of 4. She feels much less bloated. No nausea or vomiting Afebrile. VSS. Gen. Resting comfortably in bed, no acute distress. Abdomen. Soft, less distended. Mild tenderness with palpation left-sided, but patient states this is improved compared with yesterday. Extremities well-perfused with no edema 4725/2500, +2024 Lipase 543, this is compared with 408 yesterday. White blood cell count 13.5, decreased. Assessment/plan New-onset Pancreatitis Etiology is felt to be elevated triglycerides which were noted on admission up to 3205. She is now again advanced to clear liquids and reports improvement in her abdominal pain and distention. Lipase is noted to be slightly increased again to day, WBC is noted to be 13.5 which is decreased. Would recommend continued clear liquids today, and continue to monitor with plan to advance very slowly. Continue with supportive care. VS,Fishbone, I+O VS, Fishbone, I+O Laboratory Tests 09/16/20 06:13 Vital Signs Date Time Temp Pulse Resp B/P (MAP) Pulse Ox O2 Delivery O2 Flow Rate FiO2 09/16/20 08:17 72 132/76 09/16/20 06:04 13 Room Air 09/16/20 06:00 97.9 97 09/11/20 06:00 2.0 I&O- Last 24 Hours up to 6 AM 09/16/20 06:00 Intake Total 6320 ml Output Total 2175 ml Balance 4145 ml Kimberly Ayala Sep 16, 2020 10:07
--- NOTE | 2020-09-16 10:55 | IPNPDOC ---
Date Seen The patient was seen on 09/16/20. Progress Note HOSPITALIST PROGRESS NOTE DICTATED If note is needed urgently, pls have rn community health call hypertype to stat transcribe Dr. Lang's progress note job #[id number] VS, I&O, 24H, Fishbone Vital Signs/I&O Vital Signs Date Time Temp Pulse Resp B/P (MAP) Pulse Ox O2 Delivery O2 Flow Rate FiO2 09/16/20 06:04 13 Room Air 09/16/20 06:00 97.9 82 132/77 (95) 97 09/11/20 06:00 2.0 I&O- Last 24 Hours up to 6 AM 09/16/20 06:00 Intake Total 6320 ml Output Total 2175 ml Balance 4145 ml Laboratory Data 24H LABS Laboratory Tests 2 09/15/20 18:30: Prothrombin Time 15.1H, Prothromb Time International Ratio 1.16, Activated Partial Thromboplast Time 33.5 09/15/20 19:52: Urine Color STRAW, Urine Appearance CLEAR, Urine pH 7.0, Urine Specific [place] 1.004, Urine Protein NEGATIVE, Urine Glucose (Auto)(UA) NEGATIVE, Urine Ketones (Auto) NEGATIVE, Urine Blood 3+H, Urine Nitrite NEGATIVE, Urine Bilirubin NEGATIVE, Urine Urobilinogen 0.2, Urine Leukocyte Esterase (Auto) NEGATIVE, Urine WBC (Auto) 1, Urine RBC (Auto) 9H, Urine Hyaline Casts (Auto) 0, Urine Bacteria (Auto) NEGATIVE, Urine Squamous Epithelial Cells 1, Urine Sperm (Auto) 09/16/20 06:13: Immature Granulocyte % (Auto) , Neutrophils (%) (Auto) , Nucleated Red Blood Cells % (auto) 0.0, Neutrophils 76H, Band Neutrophils 1, Lymphocytes (Manual) 3L, Monocytes (Manual) 14H, Metamyelocytes 1H, Myelocytes 2H, Atypical Lymphocytes 3, Polychromasia 1+, Anisocytosis 1+, Platelet Estimate NORMAL, Anion Gap 7L, Glomerular Filtration Rate > 60.0, Calcium Level 8.7, Lipase 543H CBC/BMP Laboratory Tests 09/16/20 06:13 Microbiology Microbiology 09/14/20 Gram Stain - Final, Resulted 09/14/20 Sputum Culture, Resulted Pending 09/14/20 Respiratory Virus Panel (PCR) ([facility]) - Final, Complete 09/14/20 Group A Streptococcus Screen ([facility]) - Final, Complete 09/14/20 Group A Streptococcus Screen ([facility]) - Final, Complete 09/13/20 Urine Culture - Final, Complete 09/12/20 Blood Culture - Preliminary, Resulted No Growth after 72 hours. All specime... 09/12/20 Blood Culture - Preliminary, Resulted No Growth after 72 hours. All specime... 09/10/20 Blood Culture - Final, Complete NO GROWTH AFTER 5 DAYS 09/10/20 Blood Culture - Final, Complete NO GROWTH AFTER 5 DAYS 09/10/20 Urine Culture - Final, Complete Klebsiella Pneumoniae CARINA LANG MD Sep 16, 2020 08:11
[2020-09-16] MEDS ORDERED: LIDOCAINE 1% MDV 20ML VIAL As Ordered ONE (11:03)
[2020-09-16] MEDS: CIPROFLOXACIN 500MG TABLET PO SCH ×2 (11:34→17:00)
--- NOTE | 2020-09-16 11:41 | IPN ---
PROGRESS NOTE DATE: 09/16/2020 SUBJECTIVE: Patient seen and examined at the bedside. Chart has been reviewed. she denies any nausea, vomiting; continues to have left upper quadrant abdominal discomfort, but rated at 4/10, tolerating her diet without nausea or vomiting, fever or chills. Patient complains of pain in the right upper extremity where her I.V. had infiltrated and requesting no peripheral I.V. on the right arm to be restarted. Currently on I.V. Cipro and Flagyl. OBJECTIVE: Vital signs: Temperature 98.8, pulse 83, respiratory rate 16, blood pressure 128/77, 95% on room air, no use of respiratory accessory muscles, able to complete full sentences. General: Awake, alert, oriented to person, place and time, answering questions appropriately, in no respiratory distress. HEENT: No icterus or jaundice. Moist mucous membranes. Neck: No JVD, thyromegaly or cervical lymphadenopathy. Lungs: No stridor. Lungs are clear to auscultation, no wheezes, rhonchi or rales. Heart: S1 and S2, sinus rhythm, no murmurs, rubs or gallops. Abdomen: Soft, slightly tender in the left upper quadrant without rebound or guarding, no radiation. No hepatosplenomegaly. Extremities: Trace lower extremity edema bilaterally. LABORATORY DATA: White count 13.5, hemoglobin 10, hematocrit 33, platelet count 301. Sodium 134, potassium 3.4, chloride 100, bicarb 27, BUN 7, creatinine 0.56, glucose 107. Lipase 543. Triglycerides on 09/13/2020 of 154. ASSESSMENT AND PLAN: This is a 39-year-old female admitted on 09/08/2020 with complaints of abdominal pain left upper quadrant admitted for pancreatis found to have fatty liver and hypertriglyceridemia, transferred to ICU for insulin drip with subsequent decrease in triglycerides from 3205 to 154 and transferred back to a medical surgical floor. Patient developed a fever of 102.7 on 09/12/[address] with repeat imaging her CT abdomen and pelvis showing mildly decreased ascites, fluid into the pelvis, sequelae of pancreatitis remains essentially unchanged, bibasilar atelectasis, left lower lobe consolidation, pleural effusions are unchanged with no new acute abdominopelvic processes appreciated. General surgeon Dr. Car Collins was consulted on 09/13/[address] abdomen and pelvis not seeing any psuedocysts in the area and no evidence of hemorrhagic necrosis. Patient is to be kept on a clear liquid diet for a few days, hold off on progressing until her pain resolves completely. Patient most likely will not need home TPN, but if progresses with difficult tolerating her diet this may be an option. Current acute issues: 1. Triglyceride induced acute pancreatitis: Received I.V. insulin drip with resolution of hypertriglyceridemia down to 154 with last check on 09/13/2020. Patient has recently been advanced to a clear liquid diet on 09/15/2020 and according to surgical recommendations patient is to be kept on this diet until 09/18/2020 at least 48-72 hours after starting to make sure that the pain does not worsen. 2. Hypertriglyceridemia: Status post insulin drip. Most likely due to an inherited genetic disorder. May need endocrinology follow up as outpatient. May start on TriCor and statin once resumes a low-fat diet in 3 days. 3. I.V. infiltration right upper extremity: Elevate, compresses as needed. The patient does have 1 functioning I.V. line on the left hand. If she tolerates her clear liquid diet patient may be changed to oral Cipro and Flagyl as tolerated. 4. Klebsiella UTI: Status post Zosyn and ceftriaxone currently on oral Cipro. 5. History of nephrolithiasis with history of obstructive stones: Status post I.V. fluids. 6. Chronic ITP: Monitoring platelets. At this time this has resolved. Follows with hematology/oncology. 7. Hypothyroidism: On chronic Synthroid. 8. Anxiety/depression: As needed desvenlafaxine and hydroxyzine. 9. GERD: On PPI. 10. DVT prophylaxis: Compression stockings. 11. Disposition: Patient will need to remain on a clear liquid diet for 48-72 hours until 09/17/2020, slow advancement. Await further surgical recommendations. [facility]
[2020-09-16] MEDS: metroNIDAZOLE (FLAGYL) 500MG TABLET PO SCH ×2 (13:41→21:32)
[2020-09-16 14:00] VITALS: BP 121/76
[2020-09-16 18:00] VITALS: BP 119/76
[2020-09-16] MEDS: RAMELTEON 8 MG TAB (ROZEREM) PO SCH (20:42)
[2020-09-16 22:00] VITALS: BP 136/91
[2020-09-17] MEDS: HYDROMORPHONE HCL 0.5 MG/ 0.5 ML SYRINGE (J1170 PER 1) IV PRN ×7 (00:14→22:48)
[2020-09-17 02:00] VITALS: BP 127/78
[2020-09-17] MEDS: CIPROFLOXACIN 500MG TABLET PO SCH ×2 (05:29→17:24)
[2020-09-17] MEDS: metroNIDAZOLE (FLAGYL) 500MG TABLET PO SCH ×3 (05:29→21:13)
[2020-09-17] MEDS: LEVOTHYROXINE 88MCG TABLET (0.088 MG) PO SCH (05:30)
[2020-09-17 06:00] VITALS: BP 129/80
[2020-09-17 06:45] LABS: HEMATOCRIT 34.4 % (36.0-47.0); HEMOGLOBIN 11.3 g/dl (12.0-15.5); MEAN CORPUSCULAR HGB CONC 32.8 g/dl (32.0-36.5); MEAN CORPUSCULAR VOLUME 103.6 fl (80.0-96.0); PLATELET COUNT, AUTOMATED 354 10^3/uL (150-450); RED BLOOD COUNT 3.32 10^6/uL (4.00-5.40); WHITE BLOOD COUNT 12.7 10^3/uL (4.0-10.0)
[2020-09-17 07:08] LABS: BLOOD UREA NITROGEN 4 MG/DL (7-18); CALCIUM LEVEL 8.7 MG/DL (8.5-10.1); CARBON DIOXIDE LEVEL 28 MEQ/L (21-32); CHLORIDE LEVEL 102 MEQ/L (98-107); CREATININE FOR GFR 0.38 MG/DL (0.55-1.30); GLOMERULAR FILTRATION RATE > 60.0 (>60); GLUCOSE, FASTING 104 MG/DL (70-100); LIPASE 591 U/L (73-393); POTASSIUM SERUM 3.7 MEQ/L (3.5-5.1); SODIUM LEVEL 138 MEQ/L (136-145)
[2020-09-17 07:10] LABS: BASOPHILS 1 % (0-1); EOSINOPHILS 4 % (0-3); LYMPHOCYTES 11 % (16-44); METAMYELOCYTES 1 % (0-0); MONOCYTES 3 % (0-5); NEUTROPHILS 78 % (28-66); PLATELET ESTIMATE NORMAL (NORMAL)
[2020-09-17] MEDS: DOCUSATE SODIUM 100MG CAPSULE PO SCH ×2 (09:59→21:13)
[2020-09-17] MEDS: SENNA 8.6 MG TAB (SENOKOT) PO SCH (09:59)
[2020-09-17] MEDS: MIRALAX *UNIT DOSE* 17GM PACKET PO SCH (09:59)
[2020-09-17 10:00] VITALS: BP 121/78
[2020-09-17] MEDS: POTASSIUM CHLORIDE 10 MEQ SR TABLET PO SCH (10:00)
[2020-09-17] MEDS: PANTOPRAZOLE 40MG TAB (PROTONIX) PO SCH (10:00)
[2020-09-17] MEDS: PROPRANOLOL 60 MG LA CAP PO SCH (10:01)
--- NOTE | 2020-09-17 10:42 | IPNPDOC ---
Text Note Date of Service The patient was seen on 09/17/20. NOTE Gen. surgery. Dr. Collins The patient is a 39-year-old female admitted for new onset pancreatitis. The patient was noted to have triglycerides of 3205 on admission 09/08/20 which is felt to be the etiology of her pancreatitis. She states she is tolerating clear liquids. She reports improvement in her abdominal pain. She states at the end of the day, in the evening, she feels some 9 aching pain on the left side. Also at the end of the day she tends to feel some bloating in the same areas. No nausea or vomiting Afebrile. VSS. Gen. Resting comfortably in bed, no acute distress. Abdomen. Soft, less distended. No tenderness today with palpation. No guarding, rebound. No grimacing with palpation. Extremities well-perfused with no edema Oral intake yesterday 2240. Lipase 591, this is increased slightly again compared with yesterday. White blood cell count 12.7, decreased. Assessment/plan New-onset Pancreatitis Etiology is felt to be elevated triglycerides which were noted on admission up to 3205. The patient is reviewed and examined as per Dr. Collins this morning. Discussed with the patient that we can try slowly advancing her diet to low-fat, discussed with the patient to advance slowly, maybe first to just try crackers this morning and see if she is able to tolerate. The patient states she has crackers already in her room. Continue with supportive care. VS,Fishbone, I+O VS, Fishbone, I+O Laboratory Tests 09/17/20 05:40 Vital Signs Date Time Temp Pulse Resp B/P (MAP) Pulse Ox O2 Delivery O2 Flow Rate FiO2 09/17/20 10:23 18 09/17/20 10:01 82 135/65 09/17/20 10:00 98.1 98 Room Air 09/11/20 06:00 2.0 I&O- Last 24 Hours up to 6 AM 09/17/20 06:00 Intake Total 3715 ml Output Total 3150 ml Balance 565 ml Kimberly Ayala Sep 17, 2020 10:42
--- NOTE | 2020-09-17 10:45 | IPNPDOC ---
Date Seen The patient was seen on 09/17/20. Progress Note HOSPITALIST PROGRESS NOTE DICTATED If note is needed urgently, pls call hypertype at [phone] Lang's progress note job #[id number]. VS, I&O, 24H, Fishbone Vital Signs/I&O Vital Signs Date Time Temp Pulse Resp B/P (MAP) Pulse Ox O2 Delivery O2 Flow Rate FiO2 09/17/20 10:23 18 09/17/20 10:01 82 135/65 09/17/20 10:00 98.1 98 Room Air 09/11/20 06:00 2.0 I&O- Last 24 Hours up to 6 AM 09/17/20 06:00 Intake Total 3715 ml Output Total 3150 ml Balance 565 ml Laboratory Data 24H LABS Laboratory Tests 2 09/17/20 05:40: Immature Granulocyte % (Auto) , Neutrophils (%) (Auto) , Nucleated Red Blood Cells % (auto) 0.0, Neutrophils 78H, Band Neutrophils 2, Lymphocytes (Manual) 11L, Monocytes (Manual) 3, Eosinophils (Manual) 4H, Basophils (Manual) 1, Metamyelocytes 1H, Red Blood Cell Morphology NORMAL, Platelet Estimate NORMAL, Anion Gap 8, Glomerular Filtration Rate > 60.0, Calcium Level 8.7, Lipase 591H CBC/BMP Laboratory Tests 09/17/20 05:40 Microbiology Microbiology 09/14/20 Gram Stain - Final, Complete 09/14/20 Sputum Culture - Final, Complete 09/14/20 Respiratory Virus Panel (PCR) ([facility]) - Final, Complete 09/14/20 Group A Streptococcus Screen ([facility]) - Final, Complete 09/14/20 Group A Streptococcus Screen ([facility]) - Final, Complete 09/13/20 Urine Culture - Final, Complete 09/12/20 Blood Culture - Preliminary, Resulted No Growth after 72 hours. All specime... 09/12/20 Blood Culture - Preliminary, Resulted No Growth after 72 hours. All specime... 09/10/20 Blood Culture - Final, Complete NO GROWTH AFTER 5 DAYS 09/10/20 Blood Culture - Final, Complete NO GROWTH AFTER 5 DAYS 09/10/20 Urine Culture - Final, Complete Klebsiella Pneumoniae CARINA LANG MD Sep 17, 2020 10:45
[2020-09-17 14:00] VITALS: BP 139/80
--- NOTE | 2020-09-17 14:23 | IPN ---
PROGRESS NOTE DATE: 09/17/2020 SUBJECTIVE: Patient was seen and examined at the bedside. Chart has been reviewed. Despite having no nausea or vomiting she had developed epigastric, left upper quadrant abdominal discomfort yesterday rated at 4/10, very achy. She started her clear liquid diet. Patient is anxious to go home and says that she misses her children. She has had no fever, no chills. She is tolerating her Cipro and Flagyl well with decreasing white count and no recurrent fevers. No other complaints of shortness of breath, chest pain, pressure. Urine output has been adequate. Creatinine is normal despite stopping the I.V. fluids yesterday. OBJECTIVE: Vital signs: Temperature 98.1, pulse 85, respiratory rate 13, blood pressure 121/70, 98% on room air. General: Anicteric, no jaundice, no use of respiratory accessory muscles, speaks in full sentences, no stridor. Neck: No JVD, no thyromegaly, no cervical lymphadenopathy. No carotid bruits. Lungs: Clear to auscultation, no wheezes, rhonchi or rales. Heart: S1 and S2 sinus rhythm. Abdomen: Soft, slightly tender epigastric and left upper quadrant, no guarding or rebound, bowel sounds present, no hepatosplenomegaly. No CVA tenderness. Extremities: No cyanosis or clubbing. Skin: Warm, dry, well perfused, pink in color, no jaundice. LABORATORY DATA: White count 12.7, hemoglobin 11, hematocrit 34, platelet count 354, 78% neutrophils, 2 bands, lymphocytes 11. Sodium 138, potassium 3.7, chloride 102, bicarb 28, BUN 4, creatinine 0.38, glucose 104. Lipase at 591. ASSESSMENT: This is a 39-year-old female with hypertriglyceridemia induced acute pancreatitis that received I.V. insulin drip in the ICU with decrease in triglycerides from over 3000 to 154 and was transferred to a medical surgical floor. On 09/12/2020 she developed a fever of 102.7. Repeat imaging studies showing no necrosis or pseudocyst. At that time general surgeon Dr. Collins was consulted and recommended holding off on progressing an oral diet with solid food until her pain is improved. Current issues/Plan: 1. Acute pancreatitis secondary to hypertriglyceridemia: Received I.V. insulin drip in the ICU with resolution of her triglycerides level down to 154 on 09/13/2020. Patient has tolerated her clear liquid diet with no nausea or vomiting, but with persistent abdominal discomfort. This morning Dr. Collins general surgery has decided to try advance her diet to a low-fat, low cholesterol. I.V. fluids have been discontinued. She is currently on oral Cipro and Flagyl, off I.V. fluids and tolerating this well with good urine output and normal creatinine without electrolyte imbalance. 2. Hypertriglyceridemia causing acute pancreatitis: Patient had received an insulin drip. Will need endocrine follow up as outpatient. Will start on TriCor and statin once she resumes and tolerates a low-fat, low cholesterol diet. 3. Right upper extremity I.V. infiltration: Elevate, cool compresses. 4. Klebsiella UTI: Status post Zosyn and ceftriaxone currently on oral Cipro, resolved. 5. History of nephrolithiasis with obstructive stones in the past: Status post I.V. fluids. 6. Chronic ITP: Currently with normal platelet count. No signs of any acute decompensation. 7. Hypothyroidism: On chronic Synthroid. 8. Anxiety/depression: On desvenlafaxine and hydroxyzine. 9. GERD: On PPI. 10. DVT prophylaxis: On compression stockings. 11. Disposition: awaiting tolerance of solid diet. Defer to surgery when the patient can go home. MTDD
[2020-09-17 18:00] VITALS: BP 137/81
[2020-09-17] MEDS: RAMELTEON 8 MG TAB (ROZEREM) PO SCH (21:13)
[2020-09-17 22:00] VITALS: BP 132/80
[2020-09-18 02:00] VITALS: BP 103/62
[2020-09-18] MEDS: HYDROMORPHONE HCL 0.5 MG/ 0.5 ML SYRINGE (J1170 PER 1) IV PRN ×3 (02:07→09:15)
[2020-09-18] MEDS: CIPROFLOXACIN 500MG TABLET PO SCH (05:27)
[2020-09-18] MEDS: metroNIDAZOLE (FLAGYL) 500MG TABLET PO SCH (05:27)
[2020-09-18] MEDS: LEVOTHYROXINE 88MCG TABLET (0.088 MG) PO SCH (05:32)
[2020-09-18 06:00] VITALS: BP 118/74
[2020-09-18 06:17] LABS: HEMATOCRIT 31.9 % (36.0-47.0); HEMOGLOBIN 10.4 g/dl (12.0-15.5); MEAN CORPUSCULAR HEMOGLOBIN 33.5 pg (27.0-33.0); MEAN CORPUSCULAR HGB CONC 32.6 g/dl (32.0-36.5); MEAN CORPUSCULAR VOLUME 102.9 fl (80.0-96.0); PLATELET COUNT, AUTOMATED 349 10^3/uL (150-450); WHITE BLOOD COUNT 11.2 10^3/uL (4.0-10.0)
[2020-09-18 06:34] LABS: BLOOD UREA NITROGEN 4 MG/DL (7-18); CALCIUM LEVEL 8.5 MG/DL (8.5-10.1); CARBON DIOXIDE LEVEL 27 MEQ/L (21-32); CHLORIDE LEVEL 103 MEQ/L (98-107); CREATININE FOR GFR 0.39 MG/DL (0.55-1.30); GLOMERULAR FILTRATION RATE > 60.0 (>60); GLUCOSE, FASTING 106 MG/DL (70-100); LIPASE 563 U/L (73-393); POTASSIUM SERUM 3.9 MEQ/L (3.5-5.1); SODIUM LEVEL 137 MEQ/L (136-145)
[2020-09-18 06:43] LABS: LYMPHOCYTES 15 % (16-44); MONOCYTES 7 % (0-5); NEUTROPHILS 78 % (28-66); PLATELET ESTIMATE NORMAL (NORMAL)
[2020-09-18] MEDS ORDERED: FENOFIBRATE 48 MG TAB (TRICOR) PO SCH (09:00)
[2020-09-18] MEDS ORDERED: BACI1CAP PO (09:11)
[2020-09-18] MEDS ORDERED: CIPR-249 PO (09:11)
[2020-09-18] MEDS ORDERED: POLY17PO18 PO (09:11)
[2020-09-18] MEDS ORDERED: FENO48TA7 PO (09:11)
[2020-09-18] MEDS ORDERED: SENN18TA PO (09:11)
[2020-09-18] MEDS ORDERED: FLAG500T PO (09:11)
[2020-09-18] MEDS ORDERED: MI-A80CH PO (09:11)
[2020-09-18] MEDS: MIRALAX *UNIT DOSE* 17GM PACKET PO SCH (09:12)
[2020-09-18] MEDS ORDERED: OXYC-1 PO (09:13)
[2020-09-18] MEDS: SENNA 8.6 MG TAB (SENOKOT) PO SCH (09:13)
[2020-09-18] MEDS: POTASSIUM CHLORIDE 10 MEQ SR TABLET PO SCH (09:13)
[2020-09-18] MEDS: PANTOPRAZOLE 40MG TAB (PROTONIX) PO SCH (09:13)
[2020-09-18] MEDS: DOCUSATE SODIUM 100MG CAPSULE PO SCH (09:13)
[2020-09-18 09:15] VITALS: BP 135/90
[2020-09-18] MEDS: PROPRANOLOL 60 MG LA CAP PO SCH (09:15)
--- NOTE | 2020-09-18 09:18 | IPNPDOC ---
Text Note Date of Service The patient was seen on 09/18/20. NOTE Gen. surgery. Dr. Collins The patient is a 39-year-old female admitted for new onset pancreatitis. The patient was noted to have triglycerides of 3205 on admission 09/08/20 which is felt to be the etiology of her pancreatitis. She states she is tolerating low-fat diet. She states she primarily has some achy discomfort on the left side at the end of the day but is better by the morning. Bloating is resolved. No nausea or vomiting. Overall states she is feeling much better. Afebrile. VSS. Gen. Resting comfortably in bed, no acute distress. Abdomen. Soft, nondistended, nontender currently. No guarding, rebound. No grimacing with palpation. Extremities well-perfused with no edema Oral intake yesterday 2960 Lipase 563, this is decreased slightly today. White blood cell count 11.2, decreased. Assessment/plan New-onset Pancreatitis Etiology is felt to be elevated triglycerides which were noted on admission up to 3205. The patient reports abdominal discomfort and distention is much improved and she is feeling much better. The patient is tolerating low-fat diet, discussed with the patient to continue to advance slowly. Reviewed with Dr. Collins, from surgical standpoint the patient is stable for discharge when medically cleared. Relayed to Hospitalist. VS,Fishbone, I+O VS, Fishbone, I+O Laboratory Tests 09/18/20 05:55 Vital Signs Date Time Temp Pulse Resp B/P (MAP) Pulse Ox O2 Delivery O2 Flow Rate FiO2 09/18/20 06:00 97.0 76 14 118/74 (89) 97 Room Air I&O- Last 24 Hours up to 6 AM 09/18/20 06:00 Intake Total 2390 ml Output Total 1250 ml Balance 1140 ml Kimberly Ayala Sep 18, 2020 09:18
[2020-09-18 10:00] VITALS: BP 124/78
--- NOTE | 2020-09-18 10:16 | DS.PDOC ---
Discharge Summary General Date of Admission Sep 08, 2020 at 16:12 Date of Discharge 09/18/20 Discharge Summary DISCHARGE SUMMARY DICTATED JOB #[id number] IF NEEDED URGENTLY,PLS CALL MEDICAL RECORDS/HYPERTYPE TO STAT TRANSCRIBE. Vital Signs/I&Os Vital Signs Date Time Temp Pulse Resp B/P (MAP) Pulse Ox O2 Delivery O2 Flow Rate FiO2 09/18/20 10:00 98.2 79 12 124/78 (93) 95 Room Air I&O- Last 24 Hours up to 6 AM 09/18/20 06:00 Intake Total 2390 ml Output Total 1250 ml Balance 1140 ml Laboratory Data Labs 24H Laboratory Tests 2 09/18/20 05:55: Immature Granulocyte % (Auto) , Neutrophils (%) (Auto) , Nucleated Red Blood Cells % (auto) 0.0, Neutrophils 78H, Lymphocytes (Manual) 15L, Monocytes (Manual) 7H, Red Blood Cell Morphology NORMAL, Platelet Estimate NORMAL, Anion Gap 7L, Glomerular Filtration Rate > 60.0, Calcium Level 8.5, Lipase 563H CBC/BMP Laboratory Tests 09/18/20 05:55 Microbiology Microbiology 09/14/20 Gram Stain - Final, Complete 09/14/20 Sputum Culture - Final, Complete 09/14/20 Respiratory Virus Panel (PCR) ([facility]) - Final, Complete 09/14/20 Group A Streptococcus Screen ([facility]) - Final, Complete 09/14/20 Group A Streptococcus Screen ([facility]) - Final, Complete 09/13/20 Urine Culture - Final, Complete 09/12/20 Blood Culture - Final, Complete NO GROWTH AFTER 5 DAYS 09/12/20 Blood Culture - Final, Complete NO GROWTH AFTER 5 DAYS 09/10/20 Blood Culture - Final, Complete NO GROWTH AFTER 5 DAYS 09/10/20 Blood Culture - Final, Complete NO GROWTH AFTER 5 DAYS 09/10/20 Urine Culture - Final, Complete Klebsiella Pneumoniae Discharge Medications Scheduled Bacillus Coagulans (Bacid with Lactospore) 1 Each Capsule, 1 CAP PO BIDWM Ciprofloxacin HCl (Cipro) 500 Mg Tablet, 500 MG PO BID@ Desvenlafaxine Succinate (Desvenlafaxine Succinate ER) 50 Mg Tab.er.24h, 50 MG PO DAILY, (Reported) Fenofibrate Nanocrystallized (Fenofibrate) 48 Mg Tablet, 48 MG PO DAILY Levothyroxine Sodium (Levothyroxine Sodium) 88 Mcg Tablet, 88 MCG PO DAILY, (Reported) Metronidazole (Flagyl) 500 Mg Tablet, 500 MG PO Q8H Polyethylene Glycol 3350 (Polyethylene Glycol 3350) 17 Gm Powd.pack, 1 PKT PO DAILY Propranolol HCl (Propranolol HCl ER) 120 Mg Cap.sa.24h, 120 MG PO DAILY, (Rep orted) Senna (Senna Lax) 8.6 Mg Tablet, 2 TAB PO DAILY Scheduled PRN Hydroxyzine HCl (Hydroxyzine HCl) 25 Mg Tablet, 25 MG PO TID PRN for ANXIETY, (Reported) Oxycodone Hcl (Oxycodone HCl) 15 Mg Tablet, 1 TAB PO QIDP PRN for pain Simethicone (Mi-Acid) 80 Mg Tab.chew, 80 MG PO QIDP PRN for BLOATING Allergies Coded Allergies: latex (Verified Allergy, Unknown, swelling , 08/17/19) CARINA DEL TORO MD Sep 18, 2020 10:15
--- NOTE | 2020-09-18 11:50 | DSES ---
DISCHARGE SUMMARY DATE OF ADMISSION: 09/08/2020 DATE OF DISCHARGE: 09/18/2020 MACERATOR OPERATOR: Car Collins Jr., M.D. surgical consult. PRIMARY DISCHARGE DIAGNOSES: 1. Hypertriglyceridemia induced acute pancreatitis. 2. Klebsiella urinary tract infection. 3. History of nephrolithiasis with obstructive stones. 4. Chronic idiopathic thrombocytopenic purpura (ITP). 5. Hypothyroidism. 6. Anxiety and depression. 7. Gastroesophageal reflux disease. 8. Hypertriglyceridemia. 9. Anemia of chronic disease. 10. Klebsiella pneumonia urinary tract infection present on hospital admission. DISCHARGE MEDICATIONS: 1. Cipro 500 mg p.o. b.i.d. 2. Flagyl 500 mg q. 8 hourly. 3. Fenofibrate 48 mg daily. 4. Bacid with Lactospore one cup p.o. b.i.d. with meals. 5. MiraLAX one packet daily. 6. Oxycodone one tablet q.i.d. as needed for pain. 7. Senokot two tabs daily. 8. Simethicone 80 mg q.i.d. p.r.n. 9. Venlafaxine 50 mg daily. 10. Hydroxyzine 25 t.i.d. as needed. 11. Levothyroxine 88 mcg daily. 12. Propranolol 120 mg daily. DISCHARGE INSTRUCTIONS: The patient is to follow-up with primary care physician within five days of discharge. She will need an engineering consultant referral, Dr. Maryanne Pugh in [place] or [facility] in [place], regarding her hypertriglyceridemia. She is to be monitored for rhabdomyolysis with checking total CK if the patient complains of myalgias, as well as checking liver function tests to make sure she does not develop transaminitis while on fenofibrate. HOSPITAL COURSE: This is a 39-year-old female admitted on 09/08/2020, with a past history of chronic ITP, anxiety, hypertension, and depression previously admitted to inpatient mental health unit, who presented with abdominal pain, nausea, vomiting, radiating to the left shoulder. CT abdomen and pelvis showed pancreatitis and fatty liver. CT angio was negative. The patient was given IV morphine, Toradol, n.p.o. status, and IV fluids. Lipid profile showed hypertriglyceridemia with triglyceride of 3205. On 09/08/2020, she was transferred to the ICU for insulin drip with decrease in triglyceride with monitoring q. 12 hourly to 154. The patient was slowly advanced on a diet, but did not tolerate this well and developed a fever of 102.7 on 09/12/2020. Repeat CT abdomen and pelvis showed pseudocyst, necrosis, or significant ascites. She was started on intravenous Zosyn q. 6 hourly with decrease in white blood cell count from peak of 16.9 to 11.2. The patient did not tolerate transitioning to an oral diet and was kept on a clear liquid diet. Surgery was consulted. Did not recommend any surgical intervention, but to continue with a clear liquid diet for a three days prior to advancing. Lipase level had decreased. Pain was well-controlled. Lipase on admission was 4474 and current lipase is 563, tolerating her diet without nausea or vomiting. She was slowly advanced to a low-fat and low-cholesterol diet without nausea, vomiting, or increasing pain. She did develop low electrolytes with low potassium levels, which were supplemented with potassium daily. She remained afebrile. Despite transitioning to Cipro and Flagyl, the patient has not had worsening pain. Continued to have decreasing white count and no fevers. The patient is medically stable for hospital discharge and was started on TriCor 48 mg daily prior to hospital discharge to monitor for LFT changes, as well as total CPK if the patient develops acute rhabdomyolysis. DISCHARGE PHYSICAL EXAMINATION: VITAL SIGNS: Temperature 98.2, pulse 79, respiratory rate of 12, blood pressure 124/78, 95% on room air. GENERAL: The patient is anicteric with no jaundice. Awake, alert, and oriented. No conversational dyspnea. No use of respiratory accessory muscles. No stridor. No icterus. No carotid bruits. LUNGS: Clear to auscultation with no wheezing, rales, or rhonchi. HEART: S1, S2. Sinus rhythm. ABDOMEN: Soft, nontender, and nondistended with positive bowel sounds. EXTREMITIES: No cyanosis, clubbing, or pitting edema. LABORATORY DATA: White count 11.2, hemoglobin 10, hematocrit 31, platelet count 349,000. Sodium 137, potassium 3.9, chloride 103, bicarb 27, BUN 4, creatinine 0.39, glucose 106, lipase 563. MICROBIOLOGY: Sputum culture 09/14/2020, normal kenji. Respiratory panel negative. Strep culture negative. Urine culture negative. Two sets of blood cultures 09/12 negative. Urine culture on 09/10 Klebsiella pneumonia. IMAGING STUDIES: CT angio abdomen and pelvis pancreatitis, normal abdominal aorta, and aortic vasculature. No perforation, obstruction, or focal inflammatory change. CT abdomen and pelvis on admission 09/08/2020, acute pancreatitis. No necrosis, abscess, pseudocyst, hepatomegaly, or hepatosteatosis. Time spent on discharge 30 minutes. MTDD
[2020-09-21] MEDS ORDERED: ACET-683 PO (18:24)
[2020-09-21] MEDS ORDERED: NAPR500T6 PO (18:24)
[2020-09-21] MEDS ORDERED: OXYC-1 PO (18:32)
== END 2020-09-18 11:00 | disposition home or self-care (01) | DRG 439 ==
LOC: M ED 10:17 → M ED INP 16:12 → EEVIPCON 16:12 → ENRESERV 16:35 → M MSPAV 18:43 → M ICU 21:15 → M MSPAV 09-10 13:12
PROVIDERS: ADMIT Family Medicine; ATTEND General Practice
PROC: 05HB33Z Insertion of Infusion Device into Right Basilic Vein, Percutaneous Approach (ICD-10-PCS; principal; 2020-09-12 15:00)
DX: K85.90 Acute pancreatitis without necrosis or infection, unspecified (principal); N39.0 Urinary tract infection, site not specified; D69.3 Immune thrombocytopenic purpura; E03.9 Hypothyroidism, unspecified; F41.9 Anxiety disorder, unspecified; F32.9 Major depressive disorder, single episode, unspecified; K21.9 Gastro-esophageal reflux disease without esophagitis; B96.1 Klebsiella pneumoniae [K. pneumoniae] as the cause of diseases classified elsewhere; E78.1 Pure hyperglyceridemia; D63.8 Anemia in other chronic diseases classified elsewhere; Z79.899 Other long term (current) drug therapy; Z91.040 Latex allergy status; I10 Essential (primary) hypertension

== ENCOUNTER → 2020-10-01 | Outpatient (CLI) | payer OTHER ==
[~2020-10-01] MED LIST changes: +ACET-683 PO; +BACI1CAP PO; +DESV25TA; +DESV50TA3 PO; +FENO48TA7 PO; +HYDR-3363 PO; +MI-A80CH PO; +NAPR500T6 PO; +OXYC-1 PO; +POLY17PO18 PO; +PROP120C PO; +SENN18TA PO
[2020-10-01 12:57] LABS: BASO % 0.8 % (0.0-1.0); EOS # 0.1 10^3/uL (0.0-0.5); EOS % 1.3 % (0.0-3.0); HEMATOCRIT 40.4 % (36.0-47.0); HEMOGLOBIN 13.3 g/dl (12.0-15.5); LYMPH # 1.1 10^3/uL (1.5-5.0); LYMPH % 20.4 % (24.0-44.0); MEAN CORPUSCULAR HEMOGLOBIN 32.9 pg (27.0-33.0); MEAN CORPUSCULAR HGB CONC 32.9 g/dl (32.0-36.5); MONO # 0.5 10^3/uL (0.0-0.8); MONO % 8.5 % (2.0-8.0); NEUTROPHILS # 3.6 10^3/uL (1.5-8.5); NEUTROPHILS % 68.4 % (36.0-66.0); PLATELET COUNT, AUTOMATED 183 10^3/uL (150-450); RED BLOOD COUNT 4.04 10^6/uL (4.00-5.40); WHITE BLOOD COUNT 5.3 10^3/uL (4.0-10.0)
[2020-10-01 13:01] LABS: APPEARANCE, URINE HAZY (CLEAR); BACTERIA, URINE AUTO NEGATIVE (NEGATIVE); BILIRUBIN, URINE AUTO NEGATIVE (NEGATIVE); BLOOD, URINE BLOOD 1+ (NEGATIVE); COLOR, URINE YELLOW (YELLOW); GLUCOSE, URINE (UA) AUTO NEGATIVE (NEGATIVE); KETONE, URINE AUTO NEGATIVE (NEGATIVE); LEUKOCYTE ESTERASE, URINE AUTO NEGATIVE (NEGATIVE); NITRITE, URINE AUTO NEGATIVE (NEGATIVE); PROTEIN, URINE AUTO NEGATIVE (NEGATIVE); RBC, URINE AUTO 2 /HPF (0-3); SPECIFIC GRAVITY URINE AUTO 1.013 (1.002-1.035); SQUAMOUS EPITHELIAL CELL UR AU 6 /HPF (0-6); UROBILINOGEN, URINE AUTO 0.2 mg/dL (0.0-2.0); WBC, URINE AUTO 1 /HPF (0-3)
[2020-10-01 13:26] LABS: ALBUMIN 3.5 GM/DL (3.2-5.2); ALT/SGPT 15 U/L (12-78); AMYLASE 55 U/L (25-115); BILIRUBIN,TOTAL 0.4 MG/DL (0.2-1.0); BLOOD UREA NITROGEN 4 MG/DL (7-18); CALCIUM LEVEL 9.3 MG/DL (8.5-10.1); CARBON DIOXIDE LEVEL 27 MEQ/L (21-32); CHLORIDE LEVEL 106 MEQ/L (98-107); CHOLESTEROL LEVEL 199 MG/DL (<200); CHOLESTEROL RISK RATIO 4.422 (<5); CPK CREATINE PHOSPHOKINASE 29 U/L (26-192); CREATININE FOR GFR 0.56 MG/DL (0.55-1.30); FREE T4 1.09 NG/DL (0.76-1.46); GLOMERULAR FILTRATION RATE > 60.0 (>58); GLUCOSE, FASTING 89 MG/DL (70-100); HDL CHOLESTEROL 45 MG/DL (>40); LDL CHOLESTEROL 114 MG/DL (<100); LIPASE 212 U/L (73-393); MAGNESIUM LEVEL 1.8 MG/DL (1.8-2.4); NON-HDL-C 154 MG/DL; SODIUM LEVEL 140 MEQ/L (136-145); THYROID STIMULATING HORMONE 0.308 uIU/ML (0.358-3.740); TOTAL PROTEIN 7.2 GM/DL (6.4-8.2); TRIGLYCERIDES LEVEL 201 MG/DL (<150)
[2020-10-01 13:27] LABS: HEMOGLOBIN A1c 5.1 %
[2020-10-01 13:28] LABS: MALB URINE SIEMENS 5.5 MG/L
[2020-10-01 16:01] LABS: CORTISOL BASELINE 9.7 UG/DL (4.3-22.4)
[2020-10-01 16:16] LABS: TOTAL 25(OH) VITAMIN D 25.2 NG/ML (30.0-100.0)
== END ==
LOC: M LAB 12:05
PROVIDERS: ATTEND Physician Assistant
DX: E83.51 Hypocalcemia (principal); E87.6 Hypokalemia; D69.3 Immune thrombocytopenic purpura; E78.1 Pure hyperglyceridemia; I10 Essential (primary) hypertension; K85.90 Acute pancreatitis without necrosis or infection, unspecified

== ENCOUNTER → 2020-11-12 | Outpatient (REF) | payer OTHER ==
[2020-11-12 19:47] LABS: APPEARANCE, URINE TURBID (CLEAR); BACTERIA, URINE AUTO NEGATIVE (NEGATIVE); BILIRUBIN, URINE AUTO NEGATIVE (NEGATIVE); BLOOD, URINE BLOOD NEGATIVE (NEGATIVE); CALCIUM OXALATE CRYSTALS SMALL; COLOR, URINE AMBER (YELLOW); GLUCOSE, URINE (UA) AUTO NEGATIVE (NEGATIVE); KETONE, URINE AUTO TRACE mg/dL (NEGATIVE); LEUKOCYTE ESTERASE, URINE AUTO 2+ (NEGATIVE); MUCUS, URINE SMALL (NEGATIVE); NITRITE, URINE AUTO NEGATIVE (NEGATIVE); PROTEIN, URINE AUTO NEGATIVE (NEGATIVE); RBC, URINE AUTO 1 /HPF (0-3); SPECIFIC GRAVITY URINE AUTO 1.019 (1.002-1.035); SQUAMOUS EPITHELIAL CELL UR AU 4 /HPF (0-6); UROBILINOGEN, URINE AUTO 0.2 mg/dL (0.0-2.0); WBC, URINE AUTO 29 /HPF (0-3)
== END ==
LOC: M LAB REF 18:57
PROVIDERS: ATTEND Physician Assistant
DX: N39.0 Urinary tract infection, site not specified (principal)

== ENCOUNTER → 2021-01-01 | Outpatient (CLI) | payer OTHER ==
[2021-01-01 16:22] LABS: BASO % 0.6 % (0.0-1.0); EOS % 0.9 % (0.0-3.0); HEMATOCRIT 42.6 % (36.0-47.0); LYMPH # 1.4 10^3/uL (1.5-5.0); MEAN CORPUSCULAR HEMOGLOBIN 32.7 pg (27.0-33.0); MEAN CORPUSCULAR HGB CONC 35.2 g/dl (32.0-36.5); MEAN CORPUSCULAR VOLUME 92.8 fl (80.0-96.0); MONO # 0.4 10^3/uL (0.0-0.8); NEUTROPHILS # 2.8 10^3/uL (1.5-8.5); NEUTROPHILS % 61.1 % (36.0-66.0); RED BLOOD COUNT 4.59 10^6/uL (4.00-5.40); WHITE BLOOD COUNT 4.7 10^3/uL (4.0-10.0)
[2021-01-01 17:00] LABS: ALT/SGPT 40 U/L (12-78); BILIRUBIN,TOTAL 0.8 MG/DL (0.2-1.0); BLOOD UREA NITROGEN 9 MG/DL (7-18); CALCIUM LEVEL 9.6 MG/DL (8.5-10.1); CARBON DIOXIDE LEVEL 25 MEQ/L (21-32); CHLORIDE LEVEL 102 MEQ/L (98-107); CHOLESTEROL LEVEL 236 MG/DL (<200); CPK CREATINE PHOSPHOKINASE 39 U/L (26-192); CREATININE FOR GFR 0.72 MG/DL (0.55-1.30); GLOMERULAR FILTRATION RATE > 60.0 (>58); GLUCOSE, FASTING 89 MG/DL (70-100); HDL CHOLESTEROL 65 MG/DL (>40); POTASSIUM SERUM 3.5 MEQ/L (3.5-5.1); SODIUM LEVEL 140 MEQ/L (136-145); TRIGLYCERIDES LEVEL 267 MG/DL (<150)
[2021-01-01 17:01] LABS: ALBUMIN 3.9 GM/DL (3.2-5.2); FREE T4 0.87 NG/DL (0.76-1.46); LDL CHOLESTEROL 118 MG/DL (<100); NON-HDL-C 171 MG/DL; TOTAL PROTEIN 7.4 GM/DL (6.4-8.2)
[2021-01-01 17:20] LABS: PLATELET COUNT, AUTOMATED 47 10^3/uL (150-450)
== END ==
LOC: M WUC 13:03
PROVIDERS: ATTEND Physician Assistant
DX: K85.90 Acute pancreatitis without necrosis or infection, unspecified (principal); I10 Essential (primary) hypertension

== ENCOUNTER → 2021-02-06 | Outpatient (REF) | payer OTHER ==
[~2021-02-06] MED LIST changes: +AMLO10TA PO; +AMLO1TAB24; +BUSP1TAB PO; +CEFD300CAP PO; +CLON0.5T2; +CLON0.5T2 PO; -FENO48TA7 PO; +FENO48TA8 PO; +HYDR-3713 PO; +HYDR-4571 PO; +ISOS10TA3 PO; +LISI20TA33; +LISI20TA33 PO; +SELF1KIT MC; +SYNT75TA PO; +TRAZ-186 PO; +ZOFR4TAB16 PO
[2021-02-06 18:19] LABS: APPEARANCE, URINE CLOUDY (CLEAR); BACTERIA, URINE AUTO NEGATIVE (NEGATIVE); BILIRUBIN, URINE AUTO NEGATIVE (NEGATIVE); BLOOD, URINE BLOOD NEGATIVE (NEGATIVE); COLOR, URINE YELLOW (YELLOW); GLUCOSE, URINE (UA) AUTO NEGATIVE (NEGATIVE); KETONE, URINE AUTO NEGATIVE (NEGATIVE); LEUKOCYTE ESTERASE, URINE AUTO NEGATIVE (NEGATIVE); NITRITE, URINE AUTO NEGATIVE (NEGATIVE); PROTEIN, URINE AUTO NEGATIVE (NEGATIVE); RBC, URINE AUTO 0 /HPF (0-3); SPECIFIC GRAVITY URINE AUTO 1.009 (1.002-1.035); SQUAMOUS EPITHELIAL CELL UR AU 8 /HPF (0-6); UROBILINOGEN, URINE AUTO 0.2 mg/dL (0.0-2.0); WBC, URINE AUTO 5 /HPF (0-3)
== END ==
LOC: M LAB REF 17:06
PROVIDERS: ATTEND Physician Assistant Medical
DX: R30.0 Dysuria (principal)

== ENCOUNTER → 2021-04-08 | Outpatient (CLI) | payer OTHER ==
[~2021-04-08] MED LIST changes: -AMLO10TA PO; -BUSP1TAB PO; -CEFD300CAP PO; -CLON0.5T2; -CLON0.5T2 PO; +FENO48TA7 PO; -FENO48TA8 PO; -HYDR-3713 PO; -HYDR-4571 PO; -ISOS10TA3 PO; -LISI20TA33; -LISI20TA33 PO; -SELF1KIT MC; -SYNT75TA PO; -TRAZ-186 PO; -ZOFR4TAB16 PO
[2021-04-08 15:41] LABS: BLOOD UREA NITROGEN 12 MG/DL (7-18); CALCIUM LEVEL 8.8 MG/DL (8.5-10.1); CARBON DIOXIDE LEVEL 23 MEQ/L (21-32); CHLORIDE LEVEL 107 MEQ/L (98-107); CREATININE FOR GFR 0.79 MG/DL (0.55-1.30); GLOMERULAR FILTRATION RATE > 60.0 (>58); GLUCOSE, FASTING 93 MG/DL (70-100); NT-PRO BNP 25 PG/ML (<125); POTASSIUM SERUM 3.7 MEQ/L (3.5-5.1); SODIUM LEVEL 140 MEQ/L (136-145)
== END ==
LOC: M PLALAB 09:12
PROVIDERS: ATTEND Physician Assistant
DX: R60.0 Localized edema (principal)

== ENCOUNTER → 2021-04-08 | Outpatient (CLI) | payer OTHER ==
[2021-04-08 13:24] LABS: BASO % 0.9 % (0.0-1.0); EOS % 0.9 % (0.0-3.0); HEMATOCRIT 39.9 % (36.0-47.0); HEMOGLOBIN 14.3 g/dl (12.0-15.5); LYMPH # 1.2 10^3/uL (1.5-5.0); LYMPH % 27.8 % (24.0-44.0); MEAN CORPUSCULAR HEMOGLOBIN 34.1 pg (27.0-33.0); MEAN CORPUSCULAR HGB CONC 35.8 g/dl (32.0-36.5); MEAN CORPUSCULAR VOLUME 95.2 fl (80.0-96.0); MONO # 0.5 10^3/uL (0.0-0.8); NEUTROPHILS # 2.5 10^3/uL (1.5-8.5); NEUTROPHILS % 58.9 % (36.0-66.0); RED BLOOD COUNT 4.19 10^6/uL (4.00-5.40); WHITE BLOOD COUNT 4.3 10^3/uL (4.0-10.0)
[2021-04-08 13:26] LABS: PLATELET COUNT, AUTOMATED 86 10^3/uL (150-450)
[2021-04-08 15:50] LABS: ALT/SGPT 71 U/L (12-78); BILIRUBIN,TOTAL 0.5 MG/DL (0.2-1.0); BLOOD UREA NITROGEN 12 MG/DL (7-18); CALCIUM LEVEL 8.9 MG/DL (8.5-10.1); CARBON DIOXIDE LEVEL 23 MEQ/L (21-32); CHLORIDE LEVEL 106 MEQ/L (98-107); CHOLESTEROL LEVEL 181 MG/DL (<200); CHOLESTEROL RISK RATIO 2.585 (<5); CREATININE FOR GFR 0.76 MG/DL (0.55-1.30); GLOMERULAR FILTRATION RATE > 60.0 (>58); GLUCOSE, FASTING 90 MG/DL (70-100); HDL CHOLESTEROL 70 MG/DL (>40); LDL CHOLESTEROL 79 MG/DL (<100); NON-HDL-C 111 MG/DL; POTASSIUM SERUM 3.7 MEQ/L (3.5-5.1); SODIUM LEVEL 138 MEQ/L (136-145); TOTAL PROTEIN 7.2 GM/DL (6.4-8.2); TRIGLYCERIDES LEVEL 159 MG/DL (<150)
== END ==
LOC: M PLALAB 09:10
PROVIDERS: ATTEND Physician Assistant
DX: I10 Essential (primary) hypertension (principal)

== ENCOUNTER 2021-04-29 11:56 | Emergency (ER) | payer OTHER ==
[~2021-04-29] VITALS: Ht 172.7 cm; Wt 95.8 kg
[~2021-04-29 11:56] MED LIST changes: -FENO48TA7 PO; +FENO48TA8 PO
--- OUTSIDE RECORDS SUMMARY | 2021-04-29 12:02 | CCD | Continuity of Care Document ---
Author Author Aminah DE LOS SANTOS Organization Unknown Address [address] [place] [address] [place] [id number] Phone [phone] Care Team Providers Care Dependency Program Director Name Role Phone Lo Tariq AUTM [phone] Problems Active Problems Provider Date Palpitations Jaron Garcia MD Onset: 08/01/2020 Obesity Jaron Garcia MD Onset: 08/01/2020 Dietary management surveillance Jaron Garcia MD Onset: 08/01/2020 Essential hypertension Jaron Garcia MD Onset: 1 Flushing Jaron Garcia MD Onset: 08/01/2020 Generalized anxiety disorder Jaron Garcia MD Onset: Hyperlipidemia Jaron Garcia MD Onset: 08/01/2020 Pure hyperglyceridemia Jaron Garcia MD Onset: 1 Edema [facility]ral Onset: 04/08/2021 Social History Type Date Description Comments Sex Unknown ETOH Use Occasionally consumes alcohol Tobacco Use Start: Unknown Patient has never smoked Smoking Status Reviewed: 10/14/20 Patient has never smoked Exercise Type/Frequency Does housework daily Exercise Type/Frequency Does yardwork twice a we ek shoveling Exercise Limitations None Allergies and adverse reactions Active Allergies Criticality Reaction | Severity Comments Date Latex Unable to assess criticality Rash 08/01/2020 Medications Active Medications SIG Qnty Indications Ordering Provide r Date Lisinopril 20mg Tablets 1 by mouth every day 90tabs R60.0 Ramin Alvarez MD 04/08/2021 Fenofibrate 48mg Tablets 1 by mouth every day Lo Tariq PA 1 Flax Seeds Powder 2 tablespoons ground flaxseed daily E78.1 Jaron Garcia MD 10/14/2020 Levothyroxine Sodium 75mcg Tablets 1 by mouth every day Lo Tariq PA 1 History Medications Amlodipine Besylate 5mg Tablets 1 by mouth every day Lo Tariq PA 1 - 04/08/2021 Immunizations Description No Information Available Vital Signs Date Vital Result Comment 04/08/2021 7:59am Weight 214.00 lb Height 68 inches 5'8" BMI (Body Mass Index) 32.5 kg/m2 BP Systolic Sitting 136 mmHg Ra, large cuff BP Diastolic Sitting 84 mmHg Ra, large cuff 10/14/2020 8:07am Weight 203.00 lb Height 68 inches 5'8" BMI (Body Mass Index) 30.9 kg/m2 Heart Rate 89 /min BP Systolic Sitting 100 mmHg Omron large cuff, Ra BP Diastolic Sitting 74 mmHg Omron large cuff, R a Results Test Acquired Date Facility Test Result H/L Range Note Laboratory test finding 04/08/2021 [facility] [phone] NT-Pro BNP 25 pg/mL Normal <125 1 BMP 04/08/2021 [facility] nter [phone] Glucose, Fasting 93 mg/dL Normal 70-100 Blood Urea Nitrogen 12 mg/dL Normal 7-18 Creatinine For GFR 0.79 mg/dL Normal 0.55-1.30 Glomerular Filtration Rate > 60.0 Normal >58 2 Sodium Level 140 mEq/L Normal 136-145 Potassium Serum 3.7 mEq/L Normal 3.5-5.1 Chloride Level 107 mEq/L Normal 98-107 Carbon Dioxide Level 23 mEq/L Normal 21-32 Anion Gap 10 mEq/L Normal 8-16 Calcium Level 8.8 mg/dL Normal 8.5-10.1 1 note:<nlbl:demographic_chang ed> 2 Units are mL/min/1.73 m2 Chronic Kidney Disease Staging per NKF: Stage I & II GFR >=60 Normal to Mildly Decreased Stage III GFR 30-59 Moderately Decreased Stage IV GFR 15-29 Severely Decreased Stage V GFR <15 Very Little GFR Left ESRD GFR <15 on [facility] Procedures Date Code Description Status 04/08/2021 30356 Office/Outpatient Established Lo w MDM 20-29 Min Completed 03/24/2021 20104 External ECG Rec>48HR<7D Review & Interpretation Completed 03/24/2021 10875 External ECG Rec>48HR<7D Recordi ng Completed Medical Devices Description No Information Available Encounters Type Date Location Provider Dx Diagnosis Office Visit 04/08/2021 8:00a Main Office [facility] R60 .0 Localized edema Assessments Date Code Description Provider 04/08/2021 R60.0 Localized edema LUIS Vanegas Cha, se 03/24/2021 R00.2 Palpitations Holter/Event/Tel emetry Plan of Treatment Future Appointment(s):* 07/28/2021 8:15 am - [facility] Corral at Main Office 04/08/2021 - [facility]* R60.0 Localized edema* New Medication:* Lisinopril 20 mg - 1 by mouth every day * Recommendations:* Please obtain lab work Discontinue amlodipine Start lisinopril 20mg daily * All * Follow up:* Follow up in 3-4 months Functional Status Functional Condition Comment Date Status Independent with all ADL's Activ e Mental Status Description No Information Available Referrals Description No Information Available
--- OUTSIDE RECORDS SUMMARY | 2021-04-29 12:02 | CCD ---
Continuity of Care Document (CCD) Created on: 04/08/2021 Aminah Ibarra External Reference #: [id number] : [id number] Sex: Female Author Author Aminah DE LOS SANTOS Organization Unknown Address [address] [place] [address] [place] [id number] Phone [phone] Care Team Providers Care Candy Butcher Name Role Phone Lo Tariq AUTM [phone] Problems Active Problems Provider Date Palpitations Jaron [...] day Lo Tariq PA 1 - 04/08/2021 Propranolol HCL ER 120mg Caps ER 2 4HR 1 by mouth once daily at bedtime I10 Jaron Garcia MD 10/13/2020 - 04/07/2021 CT-Acid Gas Relief 80mg Chewtabs 1 by mouth four times a day as needed Pauline Lang MD 10/13/2020 - 04/07/2021 Fenofibrate 48mg Tablets 1 by mouth every day E78.1 Pauline Lang MD 10/13/2020 - 10/14/2020 Immunizations Description No Information Available Vital Signs [...] H/L Range Note Laboratory test finding 04/08/2021 [facility] [phone] NT-Pro BNP 25 pg/mL Normal <125 1 BMP 04/08/2021 [facility] nter [phone] Glucose, Fasting 93 mg/dL Normal 70-100 Blood [...] Calcium Level 8.8 mg/dL Normal 8.5-10.1 1 note:<nlbl:jose_chang ed> 2 Units are mL/min/1.73 m2 Chronic Kidney Disease Staging per NKF: Stage I & II GFR >=60 Normal to Mildly Decreased Stage III GFR 30-59 Moderately Decreased Stage IV GFR 15-29 Severely Decreased Stage V GFR <15 Very Little GFR Left ESRD GFR <15 on [facility] Procedures Date Code Description Status 04/08/2021 85919 Office/Outpatient Established Lo w MDM 20-29 Min Completed 03/24/2021 39630 External ECG Rec>48HR<7D Review & Interpretation Completed 03/24/2021 04024 External ECG Rec>48HR<7D Recordi ng Completed 10/14/2020 35300 Office/Outpatient Established Lo w MDM 20-29 Min Completed Medical Devices Description No Information Available Encounters Type Date Location Provider Dx Diagnosis Office Visit 04/08/2021 8:00a Main Office [facility] R60 .0 Localized edema Office Visit 10/14/2020 8:00a Main Office Jaron Garcia MD I10 Essential (primary) hypertension R00.2 Palpitations E66.09 Other obesity due to excess calories E78.1 Pure hyperglyceridemia Assessments Date Code Description Provider 04/08/2021 R60.0 Localized edema LUIS Vanegas Cha, se 03/24/2021 R00.2 Palpitations Holter/Event/Tel emetry 10/14/2020 I10 Essential (primary) hypertension Jaron Garcia MD 10/14/2020 R00.2 Palpitations Jaron Garcia MD 10/14/2020 E66.09 Other obesity due to excess marsisa trisha Jaron Garcia MD 10/14/2020 E78.1 Pure hyperglyceridemia Jaron Garcia MD Plan of Treatment Future Appointment(s):* 07/28/2021 8:15 [...]
[2021-04-29] MEDS ORDERED: LISI20TA33 (12:03)
[2021-04-29] MEDS ORDERED: CLON0.5T2 (12:03)
--- OUTSIDE RECORDS SUMMARY | 2021-04-29 12:03 | CCD | Continuity of Care Document ---
Author Author Aminah DE LOS SANTOS Organization Unknown Address [address] [place] [address] [place] [id number] Phone [phone] Care Team Providers Care Lime Spreader Name Role Phone Lo Tariq AUTM [phone] Problems Active Problems Provider Date Palpitations Jaron [...] by mouth every day Lo Tariq PA History Medications Amlodipine Besylate 5mg Tablets 1 by mouth every day Lo Tariq PA 1 - 04/08/2021 Propranolol HCL ER 120mg Caps ER 2 4HR 1 by mouth once daily at bedtime I10 Jaron Garcia MD 10/13/2020 - 04/07/2021 [place]-Acid Gas Relief 80mg Chewtabs 1 by mouth four times a day as needed Pauline Lang MD 10/13/2020 - 04/07/2021 Fenofibrate 48mg Tablets 1 by mouth every day E78.1 Pauline Lang MD 10/13/2020 - 10/14/2020 Immunizations Description No Information Available Vital Signs Date Vital Result Comment 04/08/2021 7:59am Weight 214.00 lb Height 68 inches 5'8" BMI (Body Mass Index) 32.5 kg/m2 10/14/2020 8:07am Weight 203.00 lb Height 68 inches 5'8" BMI (Body Mass Index) 30.9 kg/m2 Heart Rate 89 /min BP Systolic Sitting 100 mmHg Omron large cuff, Ra BP Diastolic Sitting 74 mmHg Omron large cuff, R a Results Description No Information Available Procedures Date Code Description Status 04/08/2021 69398 Office/Outpatient Established Lo w MDM 20-29 Min Completed 03/24/2021 65312 External ECG Rec>48HR<7D Review & Interpretation Completed 03/24/2021 21143 External ECG Rec>48HR<7D Recordi ng Completed 10/14/2020 86808 Office/Outpatient Established Lo w MDM 20-29 Min [...] 10/14/2020 E66.09 Other obesity due to excess marissa trisha Jaron Garcia MD 10/14/2020 E78.1 Pure hyperglyceridemia Jaron Garcia MD Plan of Treatment Future Appointment(s):* 07/28/2021 8:15 am - [facility] at Main Office 04/08/2021 - [facility]* R60.0 Localized edema* New Medication:* Lisinopril 20 mg - 1 by mouth every day * New Labs:* NT Probnp QN Ser/Plas, Ordered: 04/08/21 * BMP, Ordered: 04/08/21 * Recommendations:* Please obtain lab work Discontinue amlodipine Start lisinopril 20mg daily * All * Follow up:* Follow up in 3-4 months Functional Status Functional Condition Comment Date Status Independent with all ADL's Activ e Mental Status Description No Information Available Referrals Description No Information Available
--- OUTSIDE RECORDS SUMMARY | 2021-04-29 12:04 | CCD ---
Author Author [facility] Organization [facility] Address Unknown Phone Unavailable Care Team Providers Care Editorial Intern Name Role Phone Servage, L Roxy MRI TECHNICIAN Unavailable Unavailable Servage, L Roxy MRI TECHNICIAN Unavailable Unavailable Servage, L Roxy MRI TECHNICIAN Unavailable Unavailable Servage, L Roxy MRI TECHNICIAN Unavailable Unavailable Servage, L Roxy MRI TECHNICIAN Unavailable Unavailable Servage, L Roxy MRI TECHNICIAN Unavailable Unavailable Servage, L Roxy MRI TECHNICIAN Unavailable Unavailable Servage, L Roxy MRI TECHNICIAN Unavailable Unavailable Servage, L Roxy MRI TECHNICIAN Unavailable Unavailable Servage, L Roxy MRI TECHNICIAN Unavailable Unavailable Servage, L Roxy MRI TECHNICIAN Unavailable Unavailable Servage, L Roxy MRI TECHNICIAN Unavailable Unavailable Servage, L Roxy MRI TECHNICIAN Unavailable Unavailable Servage, L Roxy MRI TECHNICIAN Unavailable Unavailable Servage, L Roxy MRI TECHNICIAN Unavailable Unavailable Servage, L Roxy MRI TECHNICIAN Unavailable Unavailable Servage, L Roxy MRI TECHNICIAN Unavailable Unavailable Servage, L Roxy MRI TECHNICIAN Unavailable Unavailable Servage, L Roxy MRI TECHNICIAN Unavailable Unavailable Servage, L Roxy MRI TECHNICIAN Unavailable Unavailable Servage, L Roxy MRI TECHNICIAN Unavailable Unavailable Servage, L Roxy MRI TECHNICIAN Unavailable Unavailable Servage, L Roxy MRI TECHNICIAN Unavailable Unavailable Servage, L Roxy MRI TECHNICIAN Unavailable Unavailable Servage, L Roxy MRI TECHNICIAN Unavailable Unavailable Servage, L Roxy MRI TECHNICIAN Unavailable Unavailable Servage, L Roxy MRI TECHNICIAN Unavailable Unavailable Servage, L Roxy MRI TECHNICIAN Unavailable Unavailable Servage, L Roxy MRI TECHNICIAN Unavailable Unavailable Servage, L Roxy MRI TECHNICIAN Unavailable Unavailable Servage, L Roxy MRI TECHNICIAN Unavailable Unavailable Servage, L Roxy MRI TECHNICIAN Unavailable Unavailable Servage, L Roxy MRI TECHNICIAN Unavailable Unavailable Servage, L Roxy MRI TECHNICIAN Unavailable Unavailable Servage, L Roxy MRI TECHNICIAN Unavailable Unavailable Servage, L Roxy MRI TECHNICIAN Unavailable Unavailable Servage, L Roxy MRI TECHNICIAN Unavailable Unavailable Servage, L Roxy MRI TECHNICIAN Unavailable Unavailable Servage, L Roxy MRI TECHNICIAN Unavailable Unavailable Servage, L Roxy MRI TECHNICIAN Unavailable Unavailable Servage, L Roxy MRI TECHNICIAN Unavailable Unavailable Servage, L Roxy MRI TECHNICIAN Unavailable Unavailable Servage, L Roxy MRI TECHNICIAN Unavailable Unavailable Servage, L Roxy MRI TECHNICIAN Unavailable Unavailable Servage, L Roxy MRI TECHNICIAN Unavailable Unavailable Servage, L Roxy MRI TECHNICIAN Unavailable Unavailable Servage, L Roxy MRI TECHNICIAN Unavailable Unavailable Servage, L Roxy MRI TECHNICIAN Unavailable Unavailable Servage, L Roxy MRI TECHNICIAN Unavailable Unavailable Servage, L Roxy MRI TECHNICIAN Unavailable Unavailable Servage, L Roxy MRI TECHNICIAN Unavailable Unavailable Servage, L Roxy MRI TECHNICIAN Unavailable Unavailable Servage, L Roxy MRI TECHNICIAN Unavailable Unavailable Servage, L Roxy MRI TECHNICIAN Unavailable Unavailable Servage, L Roxy MRI TECHNICIAN Unavailable Unavailable Servage, L Roxy MRI TECHNICIAN Unavailable Unavailable Servage, L Roxy MRI TECHNICIAN Unavailable Unavailable Servage, L Roxy MRI TECHNICIAN Unavailable Unavailable Servage, L Roxy MRI TECHNICIAN Unavailable Unavailable Servage, L Roxy MRI TECHNICIAN Unavailable Unavailable Servage, L Roxy MRI TECHNICIAN Unavailable Unavailable Servage, L Roxy MRI TECHNICIAN Unavailable Unavailable Servage, L Roxy MRI TECHNICIAN Unavailable Unavailable Servage, L Roxy MRI TECHNICIAN Unavailable Unavailable Servage, L Roxy MRI TECHNICIAN Unavailable Unavailable Chandni, L Lo PA Unavailable Unavailable Chandni, L Lo PA Unavailable Unavailable Chandni, L Lo PA Unavailable Unavailable Chandni, L Lo PA Unavailable Unavailable Chandni, L Lo PA Unavailable Unavailable Chandni, L Lo PA Unavailable Unavailable Chandni, L Lo PA Unavailable Unavailable Chandni, L Lo PA Unavailable Unavailable Chandni, L Lo PA Unavailable Unavailable Chandni, L Lo PA Unavailable Unavailable Chandni, L Lo PA Unavailable Unavailable Chandni, L Lo PA Unavailable Unavailable Chandni, L Lo PA Unavailable Unavailable Chandni, L Lo PA Unavailable Unavailable Chandni, L Lo PA Unavailable Unavailable Chandni, L Lo PA Unavailable Unavailable Chandni, L Lo PA Unavailable Unavailable Chandni, L Lo PA Unavailable Unavailable Chandni, L Lo PA Unavailable Unavailable Chandni, L Lo PA Unavailable Unavailable Chandni, L Lo PA Unavailable Unavailable Chandni, L Lo PA Unavailable Unavailable Chandni, L Lo PA Unavailable Unavailable Chandni, L Lo PA Unavailable Unavailable Chandni, L Lo PA Unavailable Unavailable Chandni, L Lo PA Unavailable Unavailable Chandni, L Lo PA Unavailable Unavailable Chandni, L Lo PA Unavailable Unavailable Chandni, L Lo PA Unavailable Unavailable Chandni, L Lo PA Unavailable Unavailable Chandni, L Lo PA Unavailable Unavailable Chandni, L Lo PA Unavailable Unavailable Chandni, L Lo PA Unavailable Unavailable Chandni, L Lo PA Unavailable Unavailable Chandni, L Lo PA Unavailable Unavailable Chandni, L Lo PA Unavailable Unavailable Chandni, L Lo PA Unavailable Unavailable Chandni, L Lo PA Unavailable Unavailable Chandni, L Lo PA Unavailable Unavailable Chandni, L Lo PA Unavailable Unavailable Chandni, L Lo PA Unavailable Unavailable Chandni, L Lo PA Unavailable Unavailable Chandni, L Lo PA Unavailable Unavailable Chandni, L Lo PA Unavailable Unavailable Chandni, L Lo PA Unavailable Unavailable Chandni, L Lo PA Unavailable Unavailable Chandni, L Lo PA Unavailable Unavailable Chandni, L Lo PA Unavailable Unavailable Chandni, L Lo PA Unavailable Unavailable Chandni, L Lo PA Unavailable Unavailable Chandni, L Lo PA Unavailable Unavailable Chandni, L Lo PA Unavailable Unavailable Chandni, L Lo PA Unavailable Unavailable Chandni, L Lo PA Unavailable Unavailable Chandni, L Lo PA Unavailable Unavailable Chandni, L Lo PA Unavailable Unavailable Chandni, L Lo PA Unavailable Unavailable Chandni, L Lo PA Unavailable Unavailable Chandni, L Lo PA Unavailable Unavailable Chandni, L Lo PA Unavailable Unavailable Chandni, L Lo PA Unavailable Unavailable Chandni, L Lo PA Unavailable Unavailable Chandni, L Lo PA Unavailable Unavailable DES, YANPING Unavailable Unavailable TURRIN, PITA Unavailable Unavailable TURRIN, PITA Unavailable Unavailable TURRIN, PITA Unavailable Unavailable TURRIN, PITA Unavailable Unavailable FILIBERTO, L MARIS PA Unavailable Unavailable FILIBERTO, L MARIS PA Unavailable Unavailable FILIBERTO, L MARIS PA Unavailable Unavailable FILIBERTO, L MARIS PA Unavailable Unavailable FILIBERTO, L MARIS PA Unavailable Unavailable FILIBERTO, L MARIS PA Unavailable Unavailable FILIBERTO, L MARIS PA Unavailable Unavailable FILIBERTO, L MARIS PA Unavailable Unavailable FILIBERTO, L MARIS PA Unavailable Unavailable FILIBERTO, L MARIS PA Unavailable Unavailable FILIBERTO, L MARIS PA Unavailable Unavailable FILIBERTO, L MARIS PA Unavailable Unavailable FILIBERTO, L MARIS PA Unavailable Unavailable FILIBERTO, L MARIS PA Unavailable Unavailable FILIBERTO, L MARIS PA Unavailable Unavailable FILIBERTO, L MARIS PA Unavailable Unavailable Des, Yanping Unavailable + Des, Yanping Unavailable + Des, Yanping Unavailable + Des, Yanping Unavailable + Des, Yanping Unavailable + Des, Yanping Unavailable + Des, Yanping Unavailable + Des, Yanping Unavailable + Des, Yanping Unavailable + Des, Yanping Unavailable + Des, Yanping Unavailable + Des, Yanping Unavailable + Des, Yanping Unavailable + Des, Yanping Unavailable + Des, Yanping Unavailable + Des, Yanping Unavailable + Des, Yanping Unavailable + Des, Yanping Unavailable + Des, Yanping Unavailable + ANTECOL, Shanti VALDEZ MD Unavailable Unavailable ANTECOL, Shanti VALDEZ MD Unavailable Unavailable ANTECOL, Shanti VALDEZ MD Unavailable Unavailable ANTECOL, Shanti VALDEZ MD Unavailable Unavailable ANTECOL, Shanti VALDEZ MD Unavailable Unavailable ANTECOL, Shanti VALDEZ MD Unavailable Unavailable ANTECOL, Shanti VALDEZ MD Unavailable Unavailable ANTECOL, Shanti VALDEZ MD Unavailable Unavailable ANTECOL, Shanti VALDEZ MD Unavailable Unavailable ANTECOL, Shanti VALDEZ MD Unavailable Unavailable ANTECOL, Shanti VALDEZ MD Unavailable Unavailable ANTECOL, Shanti VALDEZ MD Unavailable Unavailable ANTECOL, Shanti VALDEZ MD Unavailable Unavailable ANTECOL, Shanti VALDEZ MD Unavailable Unavailable ANTECOL, Shanti VALDEZ MD Unavailable Unavailable ANTECOL, Shanti VALDEZ MD Unavailable Unavailable ANTECOL, Shanti VALDEZ MD Unavailable Unavailable ANTECOL, Shanti VALDEZ MD Unavailable Unavailable ANTECOL, Shanti VALDEZ MD Unavailable Unavailable ANTECOL, Shanti VALDEZ MD Unavailable Unavailable ANTECOL, Shanti VALDEZ MD Unavailable Unavailable ANTECOL, Shanti VALDEZ MD Unavailable Unavailable ANTECOL, Shanti VALDEZ MD Unavailable Unavailable ANTECOL, Shanti VALDEZ MD Unavailable Unavailable ANTECOL, Shanti VALDEZ MD Unavailable Unavailable ANTECOL, Shanti VALDEZ MD Unavailable Unavailable ANTECOL, Shanti VALDEZ MD Unavailable Unavailable ANTECOL, Shanti VALDEZ MD Unavailable Unavailable ANTECOL, Shanti VALDEZ MD Unavailable Unavailable ANTECOL, Shanti VALDEZ MD Unavailable Unavailable ANTECOL, Shanti VALDEZ MD Unavailable Unavailable ANTECOL, Shanti VALDEZ MD Unavailable Unavailable ANTECOL, Shanti VALDEZ MD Unavailable Unavailable ANTECOL, Shanti VALDEZ MD Unavailable Unavailable ANTECOL, Shanti VALDEZ MD Unavailable Unavailable ANTECOL, Shanti VALDEZ MD Unavailable Unavailable ANTECOL, Shanti VALDEZ MD Unavailable Unavailable ANTECOL, Shanti VALDEZ MD Unavailable Unavailable ANTECOL, Shanti VALDEZ MD Unavailable Unavailable ANTECOL, Shanti VALDEZ MD Unavailable Unavailable ANTECOL, Shanti VALDEZ MD Unavailable Unavailable ANTECOL, Shanti VALDEZ MD Unavailable Unavailable ANTECOL, Shanti VALDEZ MD Unavailable Unavailable ANTECOL, Shanti VALDEZ MD Unavailable Unavailable ANTECOL, Shanti VALDEZ MD Unavailable Unavailable ANTECOL, Shanti VALDEZ MD Unavailable Unavailable ANTECOL, Shanti VALDEZ MD Unavailable Unavailable ANTECOL, Shanti VALDEZ MD Unavailable Unavailable ANTECOL, Shanti VALDEZ MD Unavailable Unavailable ANTECOL, Shanti VALDEZ MD Unavailable Unavailable ANTECOL, Shanti VALDEZ MD Unavailable Unavailable ANTECOL, Shanti VALDEZ MD Unavailable Unavailable ANTECOL, Shanti VALDEZ MD Unavailable Unavailable ANTECOL, Shanti VALDEZ MD Unavailable Unavailable UNKNOWN Unavailable Unavailable Chandni, L Lo PA Unavailable Unavailable Chandni, L Lo PA Unavailable Unavailable Chandni, L Lo PA Unavailable Unavailable Chandni, L Lo PA Unavailable Unavailable Chandni, L Lo PA Unavailable Unavailable Chandni, L Lo PA Unavailable Unavailable Chandni, L Lo PA Unavailable Unavailable Chandni, L Lo PA Unavailable Unavailable Chandni, L Lo PA Unavailable Unavailable Chandni, L Lo PA Unavailable Unavailable Chandni, L Lo PA Unavailable Unavailable Chandni, L Lo PA Unavailable Unavailable Chandni, L Lo PA Unavailable Unavailable Chandni, L Lo PA Unavailable Unavailable Chandni, L Lo PA Unavailable Unavailable Chandni, L Lo PA Unavailable Unavailable Chandni, L Lo PA Unavailable Unavailable Chandni, L Lo PA Unavailable Unavailable Chandni, L Lo PA Unavailable Unavailable Chandni, L Lo PA Unavailable Unavailable Chandni, L Lo PA Unavailable Unavailable Chandni, L Lo PA Unavailable Unavailable Chandni, L Lo PA Unavailable Unavailable Chandni, L Lo PA Unavailable Unavailable Chandni, L Lo PA Unavailable Unavailable Chandni, L Lo PA Unavailable Unavailable Chandni, L Lo PA Unavailable Unavailable Chandni, L Lo PA Unavailable Unavailable Chandni, L Lo PA Unavailable Unavailable Chandni, L Lo PA Unavailable Unavailable Chandni, L Lo PA Unavailable Unavailable Chandni, L Lo PA Unavailable Unavailable Chandni, L Lo PA Unavailable Unavailable Chandni, L Lo PA Unavailable Unavailable Chandni, L Lo PA Unavailable Unavailable Chandni, L Lo PA Unavailable Unavailable Chandni, L Lo PA Unavailable Unavailable Chandni, L Lo PA Unavailable Unavailable Chandni, L Lo PA Unavailable Unavailable Chandni, L Lo PA Unavailable Unavailable Chandni, L Lo PA Unavailable Unavailable Chandni, L Lo PA Unavailable Unavailable Chandni, L Lo PA Unavailable Unavailable Chandni, L Lo PA Unavailable Unavailable Chandni, L Lo PA Unavailable Unavailable Chandni, L Lo PA Unavailable Unavailable Chandni, L Lo PA Unavailable Unavailable Chandni, L Lo PA Unavailable Unavailable Chandni, L Lo PA Unavailable Unavailable Chandni, L Lo PA Unavailable Unavailable Chandni, L Lo PA Unavailable Unavailable Chandni, L Lo PA Unavailable Unavailable Chandni, L Lo PA Unavailable Unavailable Chandni, L Lo PA Unavailable Unavailable Chandni, L Lo PA Unavailable Unavailable Chandni, L Lo PA Unavailable Unavailable Chandni, L Lo PA Unavailable Unavailable Chandni, L Lo PA Unavailable Unavailable Chandni, L Lo PA Unavailable Unavailable Chandni, L Lo PA Unavailable Unavailable Chandni, L Lo PA Unavailable Unavailable Chandni, L Lo PA Unavailable Unavailable Chandni, L Lo PA Unavailable Unavailable Juan Miguel Collins JR, MD Unavailable Unavailable Juan Miguel Collins JR, MD Unavailable Unavailable Juan Miguel Collins JR, MD Unavailable Unavailable Juan Miguel Collins JR, MD Unavailable Unavailable Juan Miguel Collins JR, MD Unavailable Unavailable Juan Miguel Collins JR, MD Unavailable Unavailable Juan Miguel Collins JR, MD Unavailable Unavailable Juan Miguel Collins JR, MD Unavailable Unavailable Juan Miguel Collins JR, MD Unavailable Unavailable Juan Miguel Collins JR, MD Unavailable Unavailable Juan Miguel Collins JR, MD Unavailable Unavailable Juan Miguel Collins JR, MD Unavailable Unavailable Juan Miguel Collins JR, MD Unavailable Unavailable Juan Miguel Collins JR, MD Unavailable Unavailable Juan Miguel Collins JR, MD Unavailable Unavailable Juan Miguel Collins JR, MD Unavailable Unavailable Juan Miguel Collins JR, MD Unavailable Unavailable Juan Miguel Collins JR, MD Unavailable Unavailable Juan Miguel Collins JR, MD Unavailable Unavailable Juan Miguel Collins JR, MD Unavailable Unavailable Juan Miguel Collins JR, MD Unavailable Unavailable Juan Miguel Collins JR, MD Unavailable Unavailable Juan Miguel Collins JR, MD Unavailable Unavailable Juan Miguel Collins JR, MD Unavailable Unavailable Juan Miguel Collins JR, MD Unavailable Unavailable Juan Miguel Collins JR, MD Unavailable Unavailable Juan Miguel Collins JR, MD Unavailable Unavailable Juan Miguel Collins JR, MD Unavailable Unavailable Juan Miguel Collins JR, MD Unavailable Unavailable Juan Miguel Collins JR, MD Unavailable Unavailable Dennis JR, J Car MD Unavailable Unavailable Dennis JR, J Car MD Unavailable Unavailable Dennis JR, J Car MD Unavailable Unavailable Dennis JR, J Car MD Unavailable Unavailable Dennis JR, J Car MD Unavailable Unavailable Dennis JR, J Car MD Unavailable Unavailable Dennis JR, J Car MD Unavailable Unavailable Dennis JR, J Car MD Unavailable Unavailable Dennis JR, J Car MD Unavailable Unavailable Dennis JR, J Car MD Unavailable Unavailable Dennis JR, J Car MD Unavailable Unavailable Dennis JR, J Car MD Unavailable Unavailable Dennis JR, J Car MD Unavailable Unavailable Dennis JR, J Car MD Unavailable Unavailable Dennis JR, J Car MD Unavailable Unavailable Dennis JR, J Car MD Unavailable Unavailable Dennis JR, J Car MD Unavailable Unavailable Dennis JR, J Car MD Unavailable Unavailable Dennis JR, J Car MD Unavailable Unavailable Dennis JR, J Car MD Unavailable Unavailable Dennis JR, J Car MD Unavailable Unavailable Dennis JR, J Car MD Unavailable Unavailable Dennis JR, J Car MD Unavailable Unavailable Dennis JR, J Car MD Unavailable Unavailable Re-disclosure Warning The records that you are about to access may contain information from federally-assisted alcohol or drug abuse programs. If such information is present, then the following federally mandated warning applies: This information has been disclosed to you from records protected by federal confidentiality rules (42 CFR part 2). The federal rules prohibit you from making any further disclosure of this information unless further disclosure is expressly permitted by the written consent of the person to whom it pertains or as otherwise permitted by 42 CFR part 2. A general authorization for the release of medical or other information is NOT sufficient for this purpose. The Federal rules restrict any use of the information to criminally investigate or prosecute any alcohol or drug abuse patient.The records that you are about to access may contain highly sensitive health information, the redisclosure of which is protected by Article 27-F of the [facility] Public Health law. If you continue you may have access to information: Regarding HIV / AIDS; Provided by facilities licensed or operated by the [facility] Office of Mental Health; or Provided by the [facility] Office for People With Developmental Disabilities. If such information is present, then the following [facility] mandated warning applies: This information has been disclosed to you from confidential records which are protected by state law. State law prohibits you from making any further disclosure of this information without the specific written consent of the person to whom it pertains, or as otherwise permitted by law. Any unauthorized further disclosure in violation of state law may result in a fine or correction sentence or both. A general authorization for the release of medical or other information is NOT sufficient authorization for further disc losure. Allergies and Adverse Reactions Type Description Substance Reaction Status Data Source(s ) Environmental Allergy LATEX LATEX [facility] Family History Family Member Name Family Member Gender Family Member Status Date o f Status Description Data Source(s) Unknown Male Problem [facility] ([facility]) Unknown Unknown Problem [facility]ENT ([facility]) mother,mgm Encounters Encounter Providers Location Date Indications Data Source(s ) Outpatient Attender: Lo SMITH Admitter: Lo Tariq PAReferrer: Lo Tariq PAConsultant: Lo SMITH 04/08 02:11:00 PM EDT - 04/08/2021 11:00:00 AM EDT [facility] NEW PATIENT Patient discharged. Outpatient Attender: MARIS SMITH Main Office 04/08/2021 0 8:00:00 AM EDT [facility] ([facility]) Outpatient Attender: Steven MosherAttender: STEVEN MOSHER [id number] 01/08/2021 12:00:00 AM [facility] Outpatient Attender: Lo SMITH ED-HCCEDWPCP 01/2021 09:20:00 AM EDT - 01/07/2021 09:21:00 AM [facility] Patient discharged. Outpatient Attender: Lo SMITH ED-HCCEDWPCP 07/2020 03:30:00 PM EDT - 12/02/2020 03:31:00 PM T [facility] Patient discharged. Outpatient Attender: STEVEN MOSHER 11/26/2020 12:00:00 AM [facility] Outpatient Attender: JOSÉ MIGUEL NEGRON MD Main Office 10/14/2020 08:00:00 AM EDT MEDTALITA ([facility]) Outpatient Attender: Lo SMITH ED-HCCEDWPC 01/2021 04:15:00 PM EDT - 10/08/2020 04:16:00 PM EDT [facility] Patient discharged. Outpatient Attender: Car Smalls/Breanna/Lorenzo/Caity andujar 10/06/2020 01:15:00 PM EDT MEDENT ([facility], ) [facility]patient Att[facility]: [facility] 07[facility]03:00 AM EDT - 2020 07:04:00 AM EDT [facility] Patient discharged. Outpatient Attender: JOSÉ MIGUEL NEGRON MD Main Office 08/01/2020 09:45:00 AM EST [facility] ([facility]) Outpatient Attender: Lo SMITH [facility] 04/2020 01:22:00 PM EST - 06/12/2020 01:23:00 PM EST [facility] Patient discharged. [facility]patient Attender: [facility]/2020 07:49:00 AM EST - 06/11/2020 07:50:00 AM [facility] Patient discharged. Emergency Attender: PITA Pearsonsuant: Roxy sanchez MRI TECHNICIAN 06/09/2020 12:49:00 PM EST - 06/09/2020 06:15:00 PM EST [facility] Patient discharged. Outpatient Attender: Lo Tariq [place] [facility] 01/2020 12:41:00 PM EST - 06/09/2020 12:42:00 PM [facility] Patient discharged. Outpatient Attender: Lo SMITH [facility] 10/2019 01:36:00 PM EST - 06/06/2020 01:37:00 PM [facility] Patient discharged. Outpatient Attender: Lo SMITH [facility] 03:20:00 PM EST - 05/26/2020 03:21:00 PM [facility] Patient discharged. [facility] 06/2020 07:31:00 AM EST - 05/15/2020 07:32:00 AM EST [facility] Patient discharged. Outpatient Attender: UNKNOWN CPSCAORT-LABEJN 05/14/2020 03:12:00 PM [facility] Outpatient Attender: Lo SMITH ED-LABGH 05/2020 12:17:00 PM EST - 05/14/2020 12:18:00 PM EST I10 E03.9 [facility] I10 E03.9 Patient discharged. Outpatient Attender: Lo SMITH -HCCEDWPCP 01:47:00 PM EDT - 04/21/2020 01:48:00 PM EDT [facility] Patient discharged. Medications Medication Brand Name Start Date Product Form Dose Route Admi nistrative Instructions Pharmacy Instructions Status Indications Reaction Description Data Source(s) 300 mg 04/20/2021 12:00:00 AM EDT capsule 20 TAKE ONE CAPSULE BY MOUTH EVERY 12 HOURS FOR 10 DAYS TAKE ONE CAPSULE BY MOUTH EVERY 12 HOURS FOR 10 DAYS S OLD: 04/20/2021 [facility] buspirone hydrochloride 7.5 MG Oral Tablet busPIRone H Cl 7.5MG Oral Tablet busPIRone HCl 7.5MG Oral Tablet 04/09/2021 12:00:00 AM EDT 1 TABLET BY MOUTH active <td>busPIRone H Cl 7.5MG Oral Tablet</td><td>04/09/2021</td><td>Unknown</td><td>BY MOUTH</td><td>TWICE A DAY</td><td>1 TABLET</td><td>[id number]</td><td>RxNorm</td><td>TAKE 1 TABLET BY MOUTH TWICE A DAY NEEDED</td> [facility] 7.5 mg 04/09/2021 12:00:00 AM EDT tablet 60 TAKE ONE TABLET BY MOUTH TWICE A DAY NEEDED TAKE ONE TABLET BY MOUTH TWICE A DAY NEEDED SOLD: 04/09/2021 [facility] Trazodone Hydrochloride 50 MG Oral Table t traZODone hydrochloride 50MG Oral Tablet traZODone hydrochloride 50MG Oral Tablet 04/09/2021 12:00:00 AM EDT 0 TABLET BY MOUTH active <td>traZOD one hydrochloride 50MG Oral Tablet</td><td>04/09/2021</td><td>Unknown</td><td>BY MOUTH</td><td>AT BEDTIME</td><td></td><td>[id number]</td><td>RxNorm</td><td>TAKE 1-2 TABLET BY MOUTH AT BEDTIME</td> [facility] 50 mg 04/09/2021 12:00:00 AM EDT tablet 60 TAKE 1 TO 2 TABLETS BY MOUTH AT BEDTIME TAKE 1 TO 2 TABLETS BY MOUTH AT BEDTIME SOLD: 04/09/2021 [facility] Lisinopril 20 MG Oral Tablet Lisinopril 04/08/2021 12:00:00 AM EDT ORAL active [facility] ([facility]) 20 mg 04/08/2021 12:00:00 AM EDT tablet 90 TAKE ONE TABLET BY MOUTH EVERY DAY TAKE ONE TABLET BY MOUTH EVERY DAY SOLD: 04/09/2021 [facility] Amlodipine 5 MG Oral Tablet Amlodipine Besylate 04/07/2021 12:00:00 A M EDT ORAL completed [facility] ([facility] Fenofibrate 48 MG Oral Tablet Fenofibrate 04/07/2021 12:00:00 AM EDT ORAL active [facility] ([facility]) 0.5 mg 03/29/2021 12:00:00 AM EDT tablet 60 TAKE ONE TABLET BY MOUTH TWICE A DAY MAXIMUM DAILY DOSE = 2 TAKE ONE TABLET BY MOUTH TWICE A DAY MAX IMUM DAILY DOSE = 2 SOLD: 03/29/2021 [facility] 0.5 mg 02/28/2021 12:00:00 AM EDT tablet 60 TAKE ONE TABLET BY MOUTH TWICE A DAY MAXIMUM DAILY DOSE = 2 TAKE ONE TABLET BY MOUTH TWICE A DAY MAX IMUM DAILY DOSE = 2 SOLD: 02/28/2021 [facility] NITROFURANTOIN, MACROCRYSTALS 25 MG / Ni trofurantoin, Monohydrate 75 MG Oral Capsule 100 mg NITROFURANTOIN MONOHYD/M-CRYST 02/06/2021 12:00:00 AM EDT ca psule 14 TAKE ONE CAPSULE BY MOUTH TWICE A DAY FOR 7 DAYS TAKE ONE CAPSULE BY MOUTH TWICE A DAY FOR 7 DAYS SOLD: 02/06/2021 [facility] 200 mg 02/06/2021 12:00:00 AM EDT tablet 9 TAKE ONE TABLET BY MOUTH THREE TIMES A DAY FOR 3 DAYS TAKE ONE TABLET BY MOUTH THREE TIMES A DAY FOR 3 DAYS SOLD: 02/06/2021 [facility] Meclizine Hydrochloride 25 MG Oral Tablet MECLIZINE HCL 02/04/2021 12:00:00 AM EDT tablet 30 TAKE ONE TABLET BY MOUTH LUIS DAY NEEDED TAKE ONE TABLET BY MOUTH EVERY DAY NEEDED SOLD: 02/06/2021 [facility] 0.5 mg 01/30/2021 12:00:00 AM EDT tablet 60 TAKE ONE TABLET BY MOUTH TWICE A DAY MAXIMUM DAILY DOSE = 2 TAKE ONE TABLET BY MOUTH TWICE A DAY MAX IMUM DAILY DOSE = 2 SOLD: 01/30/2021 [facility] . UNIT 01/08/2021 12:00:00 AM EDT Misc 1 USE A S DIRECTED USE DIRECTED SOLD: 01/08/2021 [facility] Fenofibrate 48 MG Oral Tablet FENOFIBRATE NANOCRYSTALLIZED 0 01/08/2021 12:00:00 AM EDT tablet 90 TAKE ONE TABLET BY MOUTH TAKE ONE TABLET BY MOUTH EVERY DAY SOLD: 01/08/2021 [facility] 5 mg 01/08/2021 12:00:00 AM EDT tablet 90 TAKE ONE TABLET BY MOUTH EVERY DAY TAKE ONE TABLET BY MOUTH EVERY DAY SOLD: 01/08/2021 [facility] 0.5 mg 01/01/2021 12:00:00 AM EDT tablet 60 TAKE ONE TABLET BY MOUTH AT BEDTIME TWO TIMES A DAY MAXIMUM DAILY DOSE = 2 TAKE ONE TABLET BY MOUTH AT BEDTIME TWO TIMES A DAY MAXIMUM DAILY DOSE = 2 SOLD: 01/01/2021 [facility] 0.5 mg 12/03/2020 12:00:00 AM EDT tablet 60 TAKE ONE TABLET BY MOUTH TWICE A DAY MAXIMUM DAILY DOSE = 2 TAKE ONE TABLET BY MOUTH TWICE A DAY MAX IMUM DAILY DOSE = 2 SOLD: 12/03/2020 [facility] 3 gram 11/12/2020 12:00:00 AM EDT packet 2 DISSOLVE THE CONTENTS OF ONE SACHET INTO 3-4OZ OF WATER AND STIR. TAKE ONCE DAILY IMMEDIATELY AFTER DISSOLVING DISSOLVE THE CONTENTS OF ONE SACHET INTO 3-4OZ OF WATER AND STIR. TAKE ONCE DAILY IMMEDIATELY AFTER DISSOLVING SOLD: 11/13/2020 [facility] 200 mg 11/12/2020 12:00:00 AM EDT tablet 6 TAKE ONE TABLET BY MOUTH THREE TIMES A DAY FOR 2 DAYS TAKE ONE TABLET BY MOUTH THREE TIMES A DAY FOR 2 DAYS SOLD: 11/12/2020 [facility] 10 mg 10/22/2020 12:00:00 AM EDT tablet 30 TAKE ONE TABLET BY MOUTH EVERY 6 HOURS NEEDED MAXIMUM DAILY DOSE = 4 TAKE ONE TABLET BY MOUTH EVERY 6 HOURS A S NEEDED MAXIMUM DAILY DOSE = 4 SOLD: 10/22/2020 [facility] 10/14/2020 12:00:00 AM EDT active [facility] ([facility]) Simethicone 80 MG Chewable Tablet [Mi-Acid Gas Relief] GA-Ac id Gas Relief 10/13/2020 12:00:00 AM EDT ORAL completed [facility] ([facility]) 10 mg 10/13/2020 12:00:00 AM EDT tablet 30 TAKE ONE TABLET BY MOUTH EVERY 6 HOURS NEEDED MAXIMUM DAILY DOSE = 4 TAKE ONE TABLET BY MOUTH EVERY 6 HOURS A S NEEDED MAXIMUM DAILY DOSE = 4 SOLD: 10/13/2020 [facility] Fenofibrate 48 MG Oral Tablet Fenofibrate 10/13/2020 12:00:00 AM EDT ORAL completed [facility] ([facility]) Levothyroxine Sodium 0.075 MG Oral Tablet Levothyroxine Sodi um 10/13/2020 12:00:00 AM EDT ORAL active M [facility] ([facility]) 24 HR Propranolol Hydrochloride 120 MG Extended Releas e Oral Capsule Propranolol HCL ER 10/13/2020 12:00:00 AM EDT ORAL completed [facility] ([facility]) 75 mcg 10/09/2020 12:00:00 AM EDT tablet 90 TAKE ONE TABLET BY MOUTH EVERY MORNING ON AN EMPTY STOMACH TAKE ONE TABLET BY MOUTH EVERY MORNING O N AN EMPTY STOMACH SOLD: 12/29/2020 [facility] 75 mcg 10/09/2020 12:00:00 AM EDT tablet 90 TAKE ONE TABLET BY MOUTH EVERY MORNING ON AN EMPTY STOMACH TAKE ONE TABLET BY MOUTH EVERY MORNING O N AN EMPTY STOMACH SOLD: 04/06/2021 [facility] 75 mcg 10/09/2020 12:00:00 AM EDT tablet 90 TAKE ONE TABLET BY MOUTH EVERY MORNING ON AN EMPTY STOMACH TAKE ONE TABLET BY MOUTH EVERY MORNING O N AN EMPTY STOMACH SOLD: 10/13/2020 [facility] 10 mg 10/06/2020 12:00:00 AM EDT tablet 30 TAKE ONE TABLET BY MOUTH EVERY 6 HOURS NEEDED MAXIMUM DAILY DOSE = 4 TABLETS TAKE ONE TABLET BY MOUTH EVERY 6 HOURS NEEDED MAXIMUM DAILY DOSE = 4 TABLETS SOLD: 10/06/2020 [facility] 15 mg 09/29/2020 12:00:00 AM EDT tablet 30 TAKE ONE TABLET BY MOUTH EVERY 6 HOURS NEEDED MAXIMUM DAILY DOSE = 4 TAKE ONE TABLET BY MOUTH EVERY 6 HOURS A S NEEDED MAXIMUM DAILY DOSE = 4 SOLD: 09/29/2020 [facility] 150 mg 09/24/2020 12:00:00 AM EDT tablet 1 TAKE 1 TABLET BY MOUTH NOW THEN REPEAT IN 10 DAYS IF NEEDED TAKE 1 TABLET BY MOUTH NOW THEN REPEAT I N 10 DAYS IF NEEDED SOLD: 10/01/2020 [facility] 150 mg 09/24/2020 12:00:00 AM EDT tablet 1 TAKE 1 TABLET BY MOUTH NOW THEN REPEAT IN 10 DAYS IF NEEDED TAKE 1 TABLET BY MOUTH NOW THEN REPEAT I N 10 DAYS IF NEEDED SOLD: 09/24/2020 [facility] 15 mg 2020 12:00:00 AM EDT tablet 30 TAKE ONE TABLET BY MOUTH EVERY 6 HOURS NEEDED MAXIMUM DAILY DOSE = 4 TABLETS TAKE ONE TABLET BY MOUTH EVERY 6 HOURS NEEDED MAXIMUM DAILY DOSE = 4 TABLETS SOLD: 2020 [facility] 15 mg 09/18/2020 12:00:00 AM EDT tablet 12 TAKE ONE TABLET BY MOUTH FOUR TIMES A DAY NEEDED FOR PAIN MAXIMUM DAILY DOSE = 4 TAKE ONE TABLET BY MOUTH FOUR TIMES A DAY NEEDED FOR PAIN MAXIMUM DAILY DOSE = 4 SOLD: 09/18/2020 [facility] 80 mg 09/18/2020 12:00:00 AM EDT tablet,chewable 28 CHEW ONE TABLET BY MOUTH FOUR TIMES A DAY NEEDED FOR BLOATING CHEW ONE TABLET BY MOUTH FOUR TIMES A DAY NEEDED FOR BLOATING SOLD: 09/18/2020 [facility] 8.6 mg 09/18/2020 12:00:00 AM EDT tablet 14 TAKE TWO TABLETS BY MOUTH EVERY DAY TAKE TWO TABLETS BY MOUTH EVERY DAY SOLD: 09/18/2020 [facility] Fenofibrate 48 MG Oral Tablet FENOFIBRATE NANOCRYSTALLIZED 0 09/18/2020 12:00:00 AM EDT tablet 30 TAKE ONE TABLET BY MOUTH LUIS RY DAY TAKE ONE TABLET BY MOUTH EVERY DAY SOLD: 09/18/2020 [facility] 500 mg 09/18/2020 12:00:00 AM EDT tablet 14 TAKE ONE TABLET BY MOUTH TWICE A DAY AT 6AM. AND 6PM. TAKE ONE TABLET BY MOUTH TWICE A DAY AT 6AM. AND 6PM. SOLD: 09/18/2020 [facility] 17 gram 09/18/2020 12:00:00 AM EDT powder in packet 7 TAKE ONE PACKET BY MOUTH EVERY DAY TAKE ONE PACKET BY MOUTH EVERY DAY SOLD: 09/18/2020 [facility] 1 billion cell 09/18/2020 12:00:00 AM EDT capsule 14 TAKE ONE CAPSULE BY MOUTH TWICE A DAY WITH MEALS TAKE ONE CAPSULE BY MOUTH TWICE A DAY WITH MEALS SOLD: 09/18/2020 [facility] Metronidazole 500 MG Oral Tablet METRONIDAZOLE 09/18/2020 12:0 0:00 AM EDT tablet 21 TAKE ONE TABLET BY MOUTH EVERY 8 HOURS TAKE ONE TABLET BY MOUTH EVERY 8 HOURS SOLD: 09/18/2020 [facility] 25 mg 08/02/2020 12:00:00 AM EST tablet extended release 24 hr 90 TAKE ONE TABLET BY MOUTH ONCE DAILY TAKE ONE TABLET BY MOUTH ONCE DAILY SOLD: 08/12/2020 [facility] 24 HR Propranolol Hydrochloride 120 MG Extended Releas e Oral Capsule Propranolol HCL ER 08/01/2020 12:00:00 AM EST completed [facility] ([facility]) 24 HR Desvenlafaxine 25 MG Extended Release Oral Table t Desvenlafaxine Succinate ER 08/01/2020 12:00:00 AM EST ORAL completed [facility] ([facility]) doxycycline hyclate 100 MG Oral Tablet Doxycycline Hyclate 0 07/31/2020 12:00:00 AM EST ORAL completed [facility] ([facility]) Levothyroxine Sodium 0.088 MG Oral Tablet Levothyroxine Sodi um 07/31/2020 12:00:00 AM EST ORAL completed [facility] ([facility]) 24 HR Desvenlafaxine 50 MG Extended Release Oral Table t Desvenlafaxine Succinate ER 07/31/2020 12:00:00 AM EST ORAL completed [facility] ([facility]) Spironolactone 25 MG Oral Tablet Spironolactone 07/31/2020 12:00:00 A M EST ORAL active [facility] ([facility] 88 mcg 07/08/2020 12:00:00 AM EST tablet 30 TAKE ONE TABLET BY MOUTH EVERY MORNING ON AN EMPTY STOMACH TAKE ONE TABLET BY MOUTH EVERY MORNING O N AN EMPTY STOMACH SOLD: 07/08/2020 [facility] 88 mcg 07/08/2020 12:00:00 AM EST tablet 30 TAKE ONE TABLET BY MOUTH EVERY MORNING ON AN EMPTY STOMACH TAKE ONE TABLET BY MOUTH EVERY MORNING O N AN EMPTY STOMACH SOLD: 08/12/2020 [facility] 88 mcg 07/08/2020 12:00:00 AM EST tablet 30 TAKE ONE TABLET BY MOUTH EVERY MORNING ON AN EMPTY STOMACH TAKE ONE TABLET BY MOUTH EVERY MORNING O N AN EMPTY STOMACH SOLD: 09/28/2020 [facility] 25 mg 06/13/2020 12:00:00 AM EST tablet 90 TAKE ONE TABLET BY MOUTH EVERY DAY TAKE ONE TABLET BY MOUTH EVERY DAY SOLD: 10/13/2020 [facility] 120 mg 06/13/2020 12:00:00 AM EST capsule,extended releas e 24 hr 90 TAKE ONE CAPSULE BY MOUTH EVERY DAY TAKE ONE CAPSULE BY MOUTH EVERY DAY SOLD: 10/13/2020 [facility] 120 mg 06/13/2020 12:00:00 AM EST capsule,extended releas e 24 hr 90 TAKE ONE CAPSULE BY MOUTH EVERY DAY TAKE ONE CAPSULE BY MOUTH EVERY DAY SOLD: 06/16/2020 [facility] 25 mg 06/13/2020 12:00:00 AM EST tablet 90 TAKE ONE TABLET BY MOUTH EVERY DAY TAKE ONE TABLET BY MOUTH EVERY DAY SOLD: 06/16/2020 [facility] doxycycline hyclate 100 MG Oral Capsule DOXYCYCLINE HYCLATE 06/06/2020 12:00:00 AM EST capsule 20 TAKE ONE CAPSULE BY MOUTH TW O TIMES A DAY FOR 10 DAYS TAKE ONE CAPSULE BY MOUTH TWO TIMES A DAY FOR 10 DAYS SOLD: 06/06/2020 [facility] 2 % 06/06/2020 12:00:00 AM EST ointment 22 APPLY ONE APPLICATION TO LEFT FOOT THREE TIMES A DAY APPLY ONE APPLICATION TO LEFT FOOT THREE TIMES A DAY SOLD: 06/06/2020 [facility] Levothyroxine Sodium 0.088 MG Oral Table t Levothyroxine Sodium 88 MCG Oral Tablet (SYNTHROID) Levothyroxine Sodium 88 MCG Oral Tablet (SYNTHROID) 06/03/2020 12:00:00 AM EST 88 ug Oral abo rted Other specified hypothyroidism Take 1 tablet by mouth Daily [facility] Other specified hypothyroidism 88 mcg 06/03/2020 12:00:00 AM EST tablet 30 TAKE 1 TABLET BY MOUTH DAILY TAKE 1 TABLET BY MOUTH DAILY SOLD: 06/04/2020 [facility] 875-125 mg 05/19/2020 12:00:00 AM EST tablet 20 TAKE ONE TABLET BY MOUTH TWICE A DAY FOR 10 DAYS TAKE ONE TABLET BY MOUTH TWICE A DAY FOR 10 DAYS SOLD: 05/19/2020 [facility] 50 mg 05/16/2020 12:00:00 AM EST tablet extended release 24 hr 30 TAKE ONE TABLET BY MOUTH EVERY DAY TAKE ONE TABLET BY MOUTH EVERY DAY SOLD: 05/18/2020 [facility] 50 mg 05/16/2020 12:00:00 AM EST tablet extended release 24 hr 30 TAKE ONE TABLET BY MOUTH EVERY DAY TAKE ONE TABLET BY MOUTH EVERY DAY SOLD: 07/28/2020 [facility] 50 mg 05/16/2020 12:00:00 AM EST tablet extended release 24 hr 30 TAKE ONE TABLET BY MOUTH EVERY DAY TAKE ONE TABLET BY MOUTH EVERY DAY SOLD: 06/16/2020 [facility] 25 mg 05/15/2020 12:00:00 AM EST tablet 60 START WITH 1 TABLET AT BEDTIME IF TOLERATED MAY INCREASE TO THREE TIMES A DAY NEEDED START WITH 1 TABLET AT BEDTIME IF TOLERATED MAY INCREASE TO THREE TIMES A DAY NEEDED SOLD: 05/15/2020 [facility] Cephalexin 500 MG Oral Capsule CEPHALEXIN 05/15/2020 12:00:00 AM EST capsule 21 TAKE ONE CAPSULE BY MOUTH THREE TIMES A DAY FOR 7 DAYS TAKE ONE CAPSULE BY MOUTH THREE TIMES A DAY FOR 7 DAYS SOLD: 05/15/2020 [facility] 25 mg 05/15/2020 12:00:00 AM EST tablet 60 START WITH 1 TABLET AT BEDTIME IF TOLERATED MAY INCREASE TO THREE TIMES A DAY NEEDED START WITH 1 TABLET AT BEDTIME IF TOLERATED MAY INCREASE TO THREE TIMES A DAY NEEDED SOLD: 07/08/2020 [facility] Alprazolam 0.25 MG Oral Tablet ALPRAZOLAM 05/15/2020 12:00:00 AM EST tablet 30 TAKE ONE TABLET BY MOUTH TWICE A DAY NEEDED MAXIMUM DAILY DOSE = 2 TAKE ONE TABLET BY MOUTH TWICE A DAY NEEDED MAXIMUM DAILY DOSE = 2 SOLD: 05/15/2020 [facility] 25 mg 05/15/2020 12:00:00 AM EST tablet 60 START WITH 1 TABLET AT BEDTIME IF TOLERATED MAY INCREASE TO THREE TIMES A DAY NEEDED START WITH 1 TABLET AT BEDTIME IF TOLERATED MAY INCREASE TO THREE TIMES A DAY NEEDED SOLD: 06/11/2020 [facility] 80 mg 04/21/2020 12:00:00 AM EDT capsule,extended releas e 24 hr 30 TAKE ONE CAPSULE BY MOUTH EVERY DAY TAKE ONE CAPSULE BY MOUTH EVERY DAY SOLD: 04/21/2020 [facility] Alprazolam 0.25 MG Oral Tablet ALPRAZOLAM 04/21/2020 12:00:00 AM EDT tablet 30 TAKE ONE TABLET BY MOUTH TWICE A DAY NEEDED MAXIMUM DAILY DOSE = 2 TAKE ONE TABLET BY MOUTH TWICE A DAY NEEDED MAXIMUM DAILY DOSE = 2 SOLD: 04/21/2020 [facility] 20 mg 04/21/2020 12:00:00 AM EDT tablet 30 TAKE ONE TABLET BY MOUTH EVERY MORNING; START WITH 1/2 TABLET ONCE DAILY AND IF TOLERATED INCREASE TO 1 TABLET AFTER 1-2 WEEKS TAKE ONE TABLET BY MOUTH EVERY MORNING; START WITH 1/2 TABLET ONCE DAILY AND IF TOLERATED INCREASE TO 1 TABLET AFTER 1-2 WEEKS SOLD: 04/21/2020 [facility] 88 mcg 05/10/2019 12:00:00 AM EST tablet 30 TAKE 1 TABLET BY MOUTH DAILY TAKE 1 TABLET BY MOUTH DAILY SOLD: 03/15/2020 [facility] Levothyroxine Sodium 0.088 MG Oral Table t Levothyroxine Sodium 88 MCG Oral Tablet (SYNTHROID, LEVOTHROID) Levothyroxine Sodium 88 MCG Oral Tablet (SYNTHROID, LEVOTHROID) 05/10/2019 12:00:00 AM EST 88 ug Oral active Other specified hypothyroidism Take 1 tablet by mouth Daily [facility] Other specified hypothyroidism 88 mcg 05/10/2019 12:00:00 AM EST tablet 30 TAKE 1 TABLET BY MOUTH DAILY TAKE 1 TABLET BY MOUTH DAILY SOLD: 04/20/2020 [facility] Insurance Providers Payer name Policy type / Coverage type Policy ID Covered green party ID Covered green party's relationship to james Policy James Plan Information [facility] Trad/MX Commercial [id number] Family Dependent [id number] [facility] Trad/MX Commercial [id number] Family Dependent 802 [employer] [id number] SP [id number] [employer] [id number] SP [id number] [employer] [id number] [employer] [id number] Self [id number] R U [id number] Self [id number] 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 [id number] Self [id number] Commercial [id number] Self [id number] ANSI-Not a Secondary Insurance [id number] [facility] [id number] SP [id number] [facility] [id number] SP [id number] [employer] Commercial [id number] Self [id number] [employer]-O/P [id number] 18 [id number] [employer] Commercial [id number] Self [id number] [employer] Commercial [id number] Self [employer] PPO P [id number] S [id number] [employer] [id number] SP [id number] R-CLINIC [id number] undefined [id number] UMR [id number] S [id number] UMR -O/P [id number] 18 [id number] [facility] [id number] SP [id number] [facility] [id number] [facility] [id number] [facility] Commercial [id number] Self [id number] [facility] Commercial [id number] Self [id number] [facility] Commercial [id number] Self [id number] Problems, Conditions, and Diagnoses Code Display Name Description Problem Type Effective Dates Data Source(s) F411 Generalized anxiety disorder Generalized anxiety disor brandie Diagnosis 04/08/2021 02:11:00 PM [facility] D693 Immune thrombocytopenic purpura Immune thrombocytopeni c purpura Diagnosis 04/08/2021 02:11:00 PM EDT [facility] R609 Edema, unspecified Edema, unspecified Diagnosis 02:11:00 PM EDT [facility] E039 Hypothyroidism, unspecified Hypothyroidism, unspecifie d Diagnosis 04/08/2021 02:11:00 PM ED[facility] E782 Mixed hyperlipidemia Mixed hyperlipidemia Diagnosis 04/08/2021 02:11:00 PM EDT [facility] I10 Essential (primary) hypertension Essential (primary) h ypertension Diagnosis 04/08/2021 02:11:00 PM EDT [facility] R002 Palpitations Palpitations Diagnosis 04/08/2021 02:11:00 P M EDT [facility] [id number] Latex allergy status Latex allergy status Diagnosis 06/09/2020 12:49:00 PM [facility] Z9049 Acquired absence of other specified part s of digestive tract Acquired absence of other specified parts of digestive tract Diagnosis 12:49:00 PM [facility] E039 Hypothyroidism, unspecified Hypothyroidism, unspecifie d Diagnosis 06/09/2020 12:49:00 PM [facility] I10 Essential (primary) hypertension Essential (primary) h ypertension Diagnosis 06/09/2020 12:49:00 PM [facility] E869 Volume depletion, unspecified Volume depletion, unspec ified Diagnosis 06/09/2020 12:49:00 PM [facility] E860 Dehydration Dehydration Diagnosis 06/09/2020 12:49:00 PM [facility] N3001 Acute cystitis with hematuria Acute cystitis with elena turia Diagnosis 06/09/2020 12:49:00 PM [facility] A084 Viral intestinal infection, unspecified Viral intestinal infection, unspecified Diagnosis 06/09/2020 12:49:00 PM [facility] R1030 Lower abdominal pain, unspecified Lower abdomina l pain, unspecified Diagnosis 06/09/2020 12:49:00 PM [facility] I10 Essential (primary) hypertension ESSENTIAL (PRIMARY) H YPERTENSION Diagnosis [facility] Hyp[facility], unspecified HYPOTHYROIDISM, UNSPECIFIE D Diagnosis 04/21[facility] D69.3 Immune thrombocytopenic purpura IMMUNE THROMBOCYTOPENI C PURPURA Diagnosis 04/21/2020 01:47:00 PM [facility] F41.0 Panic disorder [episodic paroxysmal anxi ety] PANIC DISORDER [EPISODIC PAROXYSMAL ANXIETY] Diagnosis 04/21/2020 01:47:00 PM [facility] F41.1 Generalized anxiety disorder GENERALIZED ANXIETY DISOR BRANDIE Diagnosis 04/21/[facility] R60.0 Edema Edema Problem 04/08/2021 12:00:00 AM ED T [facility] ([facility]) E78.1 Pure hyperglyceridemia Pure hyperglyceridemia Problem 10/14/2020 12:00:00 AM EDT [facility] ([facility]) [id number] Essential hypertension Essential hypertension Problem 09/29/2020 12:00:00 AM EDT [facility] ([facility] ) E78.5 Hyperlipidemia Hyperlipidemia Problem 08/01/2020 12:00: 00 AM EST [facility] ([facility]) F41.1 Generalized anxiety disorder Generalized anxiety disor brandie Problem 08/01/2020 12:00:00 AM EST [facility] ([facility]) R23.2 Flushing Flushing Problem 08/01/2020 12:00:00 AM ES T [facility] ([facility]) I10 Essential hypertension Essential hypertension Problem 08/01/2020 12:00:00 AM EST [facility] ([facility]) Z71.3 Dietary management surveillance Dietary management anna veillance Problem 08/01/2020 12:00:00 AM EST [facility] ([facility]) E66.09 Obesity Obesity Problem 08/01/2020 12:00:00 AM ES T [facility] ([facility]) R00.2 Palpitations Palpitations Problem 08/01/2020 12:00:00 A M EST [facility] ([facility]) Surgeries/Procedures Procedure Description Date Indications Data Source(s) OFFICE OUTPATIENT VISIT 15 MINUTES 04/08/2021 12:00:00 AM EDT [facility] ([facility]) External ECG Rec>48HR<7D Recording 03/24/2021 12:00[facility] External ECG Rec>48HR<7D Review & Interpretation 03/24 12:00:00 AM EDT [facility] ([facility]) OFFICE OUTPATIENT VISIT 15 MINUTES 10/14/2020 12:00:[facility] ECG ROUTINE ECG W/LEAST 12 LDS W/I&R 08/01/2020 12:00: 00 AM [facility] [address]21 X-RAY EXAM CHEST 2 VIEWS 05/14/2020 12:00:00 AM [facility] ECG ROUTINE ECG W/LEAST 12 LDS TRCG ONLY W/O I&R ELECTROCARD IOGRAM TRACING 05/14/2020 12:00:00 AM [facility] THYROGLOBULIN ANTIBODY THYROGLOBULIN ANTIBODY 05/14/2020 12:00:00 A M [facility] MICROSOMAL ANTIBODIES EACH MICROSOMAL ANTIBODY EACH 05/14/2020 1 2:00:00 AM [facility] THYROXINE FREE ASSAY OF FREE THYROXINE 05/14/2020 12:00:00 AM [facility] THYROID STIMULATING HORMONE TSH ASSAY THYROID STIM HORMONE 1 07/14/2019 12:00:00 AM [facility] SUSCEPTIBLTY STDY ANTIMICRBIAL MICRO/AGAR DILUTJ MICROBE NAOMIE CEPTIBLE ANSHU 05/14/2020 12:00:00 AM [facility] URNLS DIP STICK/TABLET REAGENT AUTO MICROSCOPY URINALYSIS AU TO W/SCOPE 05/14/2020 12:00:00 AM [facility] COLLECTION VENOUS BLOOD VENIPUNCTURE ROUTINE VENIPUNCTURE 12:00:00 AM [facility] BLOOD COUNT COMPLETE AUTO&AUTO DIFRNTL WBC COUNT COMPLETE CB C W/AUTO DIFF WBC 05/14/2020 12:00:00 AM [facility] THYROXINE TOTAL ASSAY OF TOTAL THYROXINE 05/14/2020 12:00:00 AM [facility] CREATINE KINASE TOTAL ASSAY OF CK (CPK) 05/14/2020 12:00:00 AM [facility] ALBUMIN URINE MICROALBUMIN QUANTIATIVE UR ALBUMIN QUANTITATI VE 05/14/2020 12:00:00 AM [facility] CREATININE OTHER SOURCE ASSAY OF URINE CREATININE 05/14/2020 12:00: 00 AM [facility] TRIIODOTHYRONINE T3 FREE FREE ASSAY (FT-3) 05/14/2020 12:00:00 AM E [facility] TRIIODOTHYRONINE T3 TOTAL TT3 ASSAY TRIIODOTHYRONINE (T3) 12:00:00 AM [facility] LIPID PANEL LIPID PANEL 05/14/2020 12:00:00 AM [employer] COMPREHENSIVE METABOLIC PANEL COMPREHEN METABOLIC PANEL 05/04 12:00:00 AM [facility] OFFICE OUTPATIENT VISIT 10 MINUTES OFFICE/OUTPATIENT VISIT E ST 04/21/2020 12:00:00 AM EDT [facility] Results ID Date Data Source 1 04/23/2021 12:00:00 AM EDT [facility] Name Value Range Interpretation Code Description Data Luzmaria rce(s) Supporting Document(s) SARS-CoV2 Rapid PCR Negative [facility] This lab was ordered by [facility] and reported by [facility]. ID Date Data Source [id number] 04/20/2021 12:00:00 AM EDT [facility] Name Value Range Interpretation Code Description Data Luzmaria rce(s) Supporting Document(s) SARS-CoV2 Rapid Antigen Negative [facility] This lab was ordered by [facility] and reported by [facility]. ID Date Data Source [id number] 04/08/2021 09:26:00 AM EDT [facility] ([facility]) Name Value Range Interpretation Code Description Data [facility] rce(s) Supporting Document(s) Glucose, Fasting 93 mg/dL 70-100 [facility] ([facility]) Blood Urea Nitrogen 12 mg/dL 7-18 [facility] ([facility] Creatinine For GFR 0.79 mg/dL 0.55-1.30 [facility] ([facility]) Sodium Level 140 meq/L 136-145 [facility] ([facility]) Potassium Serum 3.7 meq/L 3.5-5.1 [facility] ([facility]) Glomerular Filtration Rate Laboratory test result [facility] ([facility]) <content>Units are mL/min/1.73 m2</content>
<content></content>
<content>Chronic Kidney Disease Staging per NKF:</content>
<content></content>
<content>Stage I & II GFR >=60 Normal to Mildly Decreased</content>
<content>Stage III GFR 30-59 Moderately Decreased</content>
<content>Stage IV GFR 15-29 Severely Decreased</content>
<content>Stage V GFR <15 Very Little GFR Left</content>
<content>ESRD GFR <15 on FLIGHT TEST MECHANIC</content>
<content></content> Anion Gap 10 meq/L 8-16 [facility] [facility] Carbon Dioxide Level 23 meq/L 21-32 [facility] ([facility]) Chloride Level 107 meq/L 98-107 [facility] ([facility]) Calcium Level 8.8 mg/dL 8.5-10.1 [facility] ([facility]) ID Date Data Source [id number] 04/08/2021 09:26:00 AM EDT [facility] ([facility] Name Value Range Interpretation Code Description Data Luzmaria rce(s) Supporting Document(s) Natriuretic peptide.B prohormone N-Terminal [Mass/volu me] in Serum or Plasma 25 pg/mL [facility] ([facility]) <content>note:<nlbl:[email or web address]_changed> </content>
<content></content> ID Date Data Source [id number] 01/08/2021 01:27:05 PM EDT [facility] Name Value Range Interpretation Code Description Data Luzmaria rce(s) Supporting Document(s) Progress Note [facility] LWTBIu5gVmHNQwBo39/BFThlYSPyo3ToQNezOYo9FWhrWQMpL1PhSYW4vG8jXUA4BDzQKoKdEvBcRdC1 lbm [file] H6nfUxJUnbYGw7FN6LICLGT9LQVv== ID Date Data Source [id number] 01/08/2021 01:27:00 PM EDT [facility] Name Value Range Interpretation Code Description Data Luzmaria rce(s) Supporting Document(s) Progress Note [facility] BNHBVc2iEfGGBeJz06/GIOcmSRKzf3ByQVbhDYs4NPoxPHJrT2NjLRN9yQ2rFXS8FRbPHaKlDbBlXoW2 lbm [file] AgICAgICAgICAgICAgICAgICAgICAgICAgICAgICAg ICAgICAgICAgICAgICAgICAgICAgICAgICAgICAgICAgICAgICAgICAgICAgICAgDQogICAgICAgICAg ICAgICAgICAgICAgICAgICAgICAgICAgICAgICAgICAgICAgICAgICAgICAgICAgICAgICAgICAgICAg ICAgICAgICAgICAgICAgICAgICAgICAgICAgICAgDQ ogICAgICAgICAgICAgICAgICAgICAgICAgICAgICAgICAgICAgICAgICAgICAgICAgICAgICAgICAgIC AgICAgICAgICAgICAgICAgICAgICAgICAgICAgICAgICAgICAgICAgDQogICAgICAgICAgICAgICAgIC AgICAgICAgICAgICAgICAgICAgICAgICAgICAgICAg ICAgICAgICAgICAgICAgICAgICAgICAgICAgICAgICAgICAgICAgICAgICAgICAgICAgDQogICAgICAg ICAgICAgICAgICAgICAgICAgICAgICAgICAgICAgICAgICAgICAgICAgICAgICAgICAgICAgICAgICAg ICAgICAgICAgICAgICAgICAgICAgICAgICAgICAgIC AgDQogICAgICAgICAgICAgICAgICAgICAgICAgICAgICAgICAgICAgICAgICAgICAgICAgICAgICAgIC AgICAgICAgICAgICAgICAgICAgICAgICAgICAgICAgICAgICAgICAgICAgDQogICAgICAgICAgICAgIC AgICAgICAgICAgICAgICAgICAgICAgICAgICAgICAg ICAgICAgICAgICAgICAgICAgICAgICAgICAgICAgICAgICAgICAgICAgICAgICAgICAgICAgDQogICAg ICAgICAgICAgICAgICAgICAgICAgICAgICAgICAgICAgICAgICAgICAgICAgICAgICAgICAgICAgICAg ICAgICAgICAgICAgICAgICAgICAgICAgICAgICAgIC AgICAgDQogICAgICAgICAgICAgICAgICAgICAgICAgICAgICAgICAgICAgICAgICAgICAgICAgICAgIC AgICAgICAgICAgICAgICAgICAgICAgICAgICAgICAgICAgICAgICAgICAgICAgDQogICAgICAgICAgIC AgICAgICAgICAgICAgICAgICAgICAgICAgICAgICAg ICAgICAgICAgICAgICAgICAgICAgICAgICAgICAgICAgICAgICAgICAgICAgICAgICAgICAgICAgDQo8 U5eqPDAkBSQcFD0hDWx4Dv4+QTtAUnGlNGJ2rtUhgK7IEB8kf5CzNRlmDOLrm7SySBh5IT3IFVJpCJwj GA3FUPccro8AYYApFTLezAHCg9isFlUcRVQ5ARUlLe jhAL6ANCRhS6kpkfVnEBAuJARSGH3RBaScF9YidW09VJEEMj1+CAfihjAqNejSKwDyKNEjz1NiTAv6XY 3YEPFzLkakt0AcZtMtIKJUVIaiMT3SXJL5FSFpXFCkWv1RONOkM865haRjXJ7OBu0TKsXfTS1ngp4QJi JiFSEeVmzHFac7TEyvRS2UuITsTEoHal8hhlVklxCD y8KhyaVwsIXEyT0tJA7iG7SbxCaoNVvISyYqqIS5OovlPyAhSJYfZGplYLDXUCdBEzTqS1Ayn9PoVzK6 ORLxJiWsINtxKIFaQaH0VR30oHouIC6HMLSvXLDvWA68FXMeWAFeSq7NVm5NBbPmSB0tgq4IFnAiLBAt JtePGki9XAsrWF1SnNNmB9FjsWIxp1qZZzAaT0BZJY BsAOLnAt8NMLKoPwVnXGSuDHyzHS5kUCVsHGJWoSrxriT3CI5KKN2lpvVrBG7KCzDyJc4jFg6ZIiEjY3 DeF2DrKRUaLPKDEOtvWX0MVQyiKE0cSN4Ok6JVcYTwrE9bjz6QUGGrJSNjMncnox8GLqwiJ2L8gVyoWY NrHeShWCFAXBmgQI0QKGErOTY9VGSyFMOiJYCDLdUb F76bUY1XS8Nes75pTsF6SDYvJqVtWSilCP71wUgkieUqhGBcfAlmDA5HMk8+DQplbmRvYmoNCnhyZWYN KlZiKgBKHtNiHSWtPYEtNOXtJvV8RoKoOn3UXMSmAUPgNYFfUeRfRDSdAEOqIEsvQZYgWKL2VrN5NZXc SOFuDH4XEkIcCPBjQlGhPRgeNGZoFZVayf1NLQGuCH CaZMA7TvYdBJUyHGUfBAirFYTlDAPgJWf9VMUePQEqPM3STvGpZSUhKSZiLRpzBEEeMHGqid3KZIYuKW TrYdD7SRDwMTOfDTRfQFueXFNcXYXbOhA2YRHqRUYpEM2SMqTvFPSeXWN9QmGlCFExNNOjfo3ALZNyGL XpGGG4WfKmSUOvPVYuWRceBJLqJXX8PQo5XKBvGGTi AJ2IYxXmKAYeJIW6OBHjWTSfUILkvj2MAAXyVNOnCfOyNpFoXOWrJFSrSQugWPHhWRM4IGKvMHFxEGVg BU0WXsAfCBTePGE3WgLcBNLbDHAvfp2GSVCbKEGsRsuoRFIgWHSfLUUaTAthQBAfKPD7MML0JZGpLLNf FH6LQgCcOXItDBl3PTYfFJBlBQOrnv3ZDUEtZOEtTX M1DdRiWNFzWOQfYVznORPyHUI9TxVpNSPzPQWcIS3RRhSqYSTjZLa7OTkrHZFjTTNcyu5OSMTaJDBgYN T8WjYqRTDvCBJpAZppCOZvZTPwMgH4EYEuGSNmOX8BAzVjWSAiOnL3DYJnGGLwBLHvam5RsSRjbAdxyj 3QZXuNUv0JzRndDJZ3SJtaVm0rkUGhCSIlZIFUTk4E bvXcFOTxWMQTPYfkVMMmDNqrSAKjD3VdUCQcWiK3LAm1UvMoOAJmGAF2SwL7RKO5KqO3D2JbHrQzXSE8 SPTcWZpmYfpcTZGiKhI4ZIsoZgdbVNs+MF2jPTw+Jk2Ef1VtkgE0ccNbERdiTFX0XD7SWKNWJ5VFDa== ID Date Data Source [id number] 09/14/2020 02:48:00 PM EDT [facility] Name Value Range Interpretation Code Description Data Luzmaria rce(s) Supporting Document(s) SARS-CoV-2 (COVID 19) NEGATIVE - SARS-CoV-2 (COVID19) [facility] This lab was ordered by [facility] a nd reported by [facility]. ID Date Data Source [id number] 09/08/2020 11:56:00 AM EST [facility] Name Value Range Interpretation Code Description Data Luzmaria rce(s) Supporting Document(s) SARS coronavirus 2 RNA [Presence] in Res piratory specimen by ANTONIO with probe detection NEGATIVE [facility] This lab was ordered by [facility] a nd reported by [facility]. ID Date Data Source [id number] 06/13/2020 12:00:00 AM EST [facility] Name Value Range Interpretation Code Description Data Luzmaria rce(s) Supporting Document(s) [facility]2 [facility]igen [facility] by [facility] and reported by [facility]. ID Date Data Source [id number] 06/09/2020 12:49:00 PM [facility] 1 OrderSheet [facility] Emergency Department [address] [place] [address] Phone #: ext- [phone] 06/09/2020 12:39 Patient: IRENE OCHOA Sex: F : 1980 Age: 39yWEIGHT:82.5 kg (S) HEIGHT:68 inches (S) BMI:27.7ALLERGIES: LatexCHIEF COMPLAINT: abdominal pain, vomiting, nauseaDIAGNOSIS: Gastroenteritis, Urinary tract infectious disease, Hypertensive disorderLAB ORDERSOrder Description Priority Entered Acknowle dged InitialedBeta-HCG, Qual STAT 13:08 06/09/2020 13:10 Katiana SMITH; Rigoberto CINTRONCBC w Diff STAT 13:08 06/09/2020 13:10 Santiago SMITH; Rigoberto RNCMP STAT 13:08 06/09/2020 13:10 Santiago SMITH; Rigoberto CINTRONLactic Acid STAT 13:08 06/09/2020 13:10 Santiago SMITH; Rigoberto RNMagnesium STAT 13:08 06/09/2020 13:10 Santiago SMITH; Rigoberto RNLipase STAT 13:08 06/09/2020 13:10 Santiago SMITH; Rigoberto CINTRONUrinalysis (Clean STAT 13:08 06/09/2020 16:59 Prasanna SMITH; Rigoberto RNTroponin-T STAT 13:15 06/09/2020 13:36 Santiago SMITH; Rigoberto CINTRONCortisol STAT 13:16 06/09/2020 13:36 Santiago SMITH; Rigoberto CINTRONCulture, Urine STAT 17:14 06/09/2020 17:16 Santiago(Urine, Clean Samir SMITH; Rigoberto RNCatch)DIAGNOSTIC STUDY ORDERSOrder Description Priority Entered Acknowledged InitialedCT Abd PEL W/ IV STAT 14:34 06/09/2020 14:40 TerryContrast Only Samir SMITH; Rigoberto RN(Oxygen?(No))(IV?(Yes)) Reason for Study: lower/upper abd pain with NV, elevated T bili,MEDICATION/IV/DRIP/FLUID ORDERS 2 OrderSheet [facility] Emergency Department [address] [place] [address] Phone #: ext- [phone] 06/09/2020 12:39 Patient: IRENE OCHOA Sex: F : 1980 Age: 39yOrder Description Priority Entered Acknowledged InitialedNS IV : Bolus 1000 13:08 06/09/2020 13:37 TerrymL, then 100 mL/hr Samir Franklin RN(NOW x1)Zofran IVP 4 mg 13:08 06/09/2020 13:37 Santiago Franklin RNProtonix IV Push 40 13:13 06/09/2020 14:10 Terrymg (in 10 mL NS, Samir Franklin RNadminister over atleast 2 minutes,NOW x1)cloNIDine PO 0.1 15:01 06/09/2020 15:05 Terrymg Santiago Franklin RN; Rigoberto RN Verbal order per; Samir Sy PAcloNIDine PO 0.1 16:53 06/09/2020 16:59 Terrymg Samir Franklin RNhydrALAZINE 20 17:21 06/09/2020 17:29 Terrymg IVP X 1 dose: Samir Franklin RN20 mg (NOW x1)GENERAL OR DERSOrder Description Priority Entered Acknowledged InitialedCardiac Monitor 13:08 06/09/2020 13:10 Santiago(continuous) Samir SMITH; Rigoberto RNBlood Pressure 13:08 06/09/2020 13:10 LukeyMonitor Samir SMITH; Rigoberto RNNPO 13:08 06/09/2020 13:10 Santiago SMITH; Rigoberto RNPulse Oximetry 13:08 06/09/2020 13:10 TerryContinuous Samir SMITH; Rigoberto RNEKG 13:15 06/09/2020 13:30 Rory ED Samir SMITH; Pancho Jen MERY Tech1[Electronically signed by Santiago Franklin RN (18:36 06/09/2020)][Electronically signed by Samir Sy (18:38 06/09/2020)][Electronically locked by Santiago Franklin RN (18:36 06/09/2020)] Name Value Range Interpretation Code Description Data Luzmaria rce(s) Supporting Document(s) ID Date Data Source [id number] 06/09/2020 12:49:00 PM EST [facility] 1 Medication Reconciliation Report [facility] Emergency Department [address] [place] [address] Phone #: ext- [phone] 06/09/2020 12:39 Patient: IRENE OCHOA Sex: F : 1980 Age: 39yWeight: 82.5 kgHeight/Length: 68 in.BMI: 27.7ALLERGIES: LatexThe patient's Home Medications are listed below:CONTINUE TAKING THE FOLLOWING MEDICATIONS: Doxycycline Oral 100 mg, 2x a day Synthroid OralThe source(s) of the original Home Medication information:Not obtained.The following Medications were given to the patient in the Emergency Department:NS [IV] IV Fluids bolus 1000 mL over 1 hour(s), then 100 mL/hr, administered: 13:27 06/09/2020Zofran [IVP] IVP 4 mg, administered: 13:29 06/09/2020PROTONIX [IVP] IVP 40 mg, administered: 14:00 06/09/2020Clonidine [PO] PO 0.1 mg, administered: 15:05 06/09/2020Clonidine [PO] PO 0.1 mg, administered: 16:59 06/09/2020Hydralazine [IVP] IVP 20 mg, administered: 17:25 06/09/2020The following Medications were prescribed to the patient:None. Name Value Range Interpretation Code Description Data Luzmaria rce(s) Supporting Document(s) ID Date Data Source [id number] 06/09/2020 12:49:00 PM EST [facility] 1 Medication Administration Record [facility] Emergency Department [address] [place] [address] Phone #: ext- [phone] 06/09/2020 12:39 Patient: IRENE OCHOA Sex: F : 1980 Age: 39yWeight: 82.5 kgHeight/Length: 68 inBMI: 27.7ALLERGIES: Latex Date/Time Medication Administered Medication OrderedStart NS [IV] NS IV : Bolus 1000 mL, then 94657:27 06/09/2020 Dose: IV Fluids mL/hr (NOW x1)Santiago Franklin RN Rate: 100 mL/hr over 5 hour(s)---- Bolus: 1000 mL over 1 hour(s)Stop Dispensed: 1000 mL bag18:07 06/09/2020 Site: #1 left forearmTerry SAIDA FranklinGiven ZOFRAN [IVP] (ONDANSETRON HCL) Zofran IVP 4 mg13:29 06/09/2020 Dose: 4 mg Kit Franklin RN Site: #1 left forearmGiven PROTONIX [IVP] (PANTOPRAZOLE Protonix IV Push 40 mg (in 10 mL14:00 06/09/2020 SODIUM) NS, administer over at least 2Terry SAIDA Franklin Dose: 40 mg IVP minutes, NOW x1) Site: #2 right ACGiven CLONIDINE [PO] cloNIDine PO 0.1 mg15:05 06/09/2020 Dose: 0.1 mg Tablets Gian Amanda CLONIDINE [PO] cloNIDine PO 0.1 mg16:59 06/09/2020 Dose: 0.1 mg Tablets Gian Amanda HYDRALAZINE [IVP] hydrALAZINE 20 mg IVP X 1 dose:17:25 06/09/2020 Dose: 20 mg IVP 20 mg (NOW x1)Santiago Franklin RN Site: #2 right AC Name Value Range Interpretation Code Description Data Luzmaria rce(s) Supporting Document(s) ID Date Data Source [id number] 06/11/2020 12:21:[address] [facility] [address] [place] [address] PHONE: [phone] FAX: [phone] Name .................. : DON BONILLA Acct Number.................. : [id number] ROOM. ................. : TR-08 Number ................... : [id number] Stay type ............. : E/R Discharge Date......... ... : 06/09/20 Admit Date ......... : 06/09/20 Admit Phys .................... : DIANDRA FELDMAN Date of ....... : 1980 Family Phys ................... : SERVAGE PATRICE Phone .................. : [phone] Age ................................ : 39 Film# .................. .:[id number] Sex ................................. : F Unsigned transcriptions are preliminary reports and do not represent a medical or legal document CT ABD & PELVIS W/ IV ONLY [id number] COMPLETE:06/09/20 19:28 SERA [id number] Reason(s): lower/upper abd pain with NV, elevated T bili, CT OF THE ABDOMEN AND PELVIS WITH CONTRAST: COMPARISON: 11/26/18 TECHNIQUE: Imaging was performed following intravenous contrast administration. FINDINGS: The patient is status post cholecystectomy. The lung bases are clear. There is fatty infiltration of the liver without hepatic mass or biliary dilatation. The spleen, pancreas, adrenal glands and kidneys are unremarkable. Acute bowel pathology is not seen. A normal appendix is seen which excludes acute appendicitis. There is no abscess formation, ascites, pneumoperitoneum or adenopathy. The aorta is normal in caliber. In the left ovary, a 4.7 x 4.1 cm cyst is seen that is likely of benign etiology. The uterus, urinary bladder and right adnexa are unremarkable. There is no acute osseous abnormality. IMPRESSION: A 4.7 x 4.1 cm left ovarian cyst, likely of benign etiology. Follow up sonography recommended in 1-2 months to confirm stability/resolution. Fatty liver without hepatic mass or biliary dilatation. While performing the above CT examination, radiation dose reduction was accomplished utilizing automated exposure control, adjusting of the mA and kV based on the patient's body size and/or the use of imperative reconstructive techniques. CT dose: 864.9 mGycm Contrast agent in mL: 75 Isovue 370 Method of administration: Intravenous Page 1 of 2 [facility] [address] [place] [address] PHONE: [phone] FAX: [phone] Name .................. : DON IRENE Acct Number.................. : [id number] ROOM. ................. : TR-08 MR Number ................... : [id number] Stay type ............. : E/R Discharge Date......... ... : 06/09/20 Admit Date ......... : 06/09/20 Admit Phys .................... : DIANDRA FELDMAN Date of ....... : 1980 Family Phys ................... : SERVAGE PATRICE Phone .................. : [phone] Age ................................ : 39 Film# .................. .:[id number] Sex ................................. : F Unsigned transcriptions are preliminary reports and do not represent a medical or legal document CT ABD & PELVIS W/ IV ONLY [id number] COMPLETE:06/09/20 19:28 SERA [id number] Reason(s): lower/upper abd pain with NV, elevated T bili, Electronically Reviewed and Signed By Alissa Montoya MD , 06/11/20 12:21, KGG Transcribe Initials: LUISANA , Transcribe Date: 06/10/20 01:20, Dictation Date: Copy for: [facility] via fax Copy for: EMERGENCY DEPT via mode Copy for: 710 MED REC DISCHARGED Page 2 of 2 Name Value Range Interpretation Code Description Data Luzmaria rce(s) Supporting Document(s) ID Date Data Source [id number] 06/09/2020 07:38:00 PM [facility] [address] [place] [address] RESPIRATORY CARE REPORT ==== ---------NAME------- NUMBER SEX AGE ADMIT DISC. XRAY# F/C TYPEPOUND IRENE [id number] F 39 06/09/20 06/09/20 [id number] KBO E/R DATE OF : 1980 M/R# [id number] #: [id number] TR-08 LOCATION: EMERGENCY DEPT EKG [id number] COMP LETE:06/09/20 15:52 [place] [id number] PHYSICIAN: DIANDRA SY DECLAN Name Value Range Interpretation Code Description Data Luzmaria rce(s) Supporting Document(s) ID Date Data Source [id number] 06/09/2020 12:49:00 PM EST [facility] 1 General Instructions [facility] Emergency Department [address] [place] [address] Phone #: ext- [phone] 06/09/2020 12:39 Patient: IRENE OCHOA Sex: F : 1980 Age: 39yAcute viral gastroenteritis with volume depletion and dehydration.Acute urinary tract infection with cystitis and hematuria. Not associated with indwelling catheter orobstruction.Hypertension.INSTRUCTIONSNo strenuous activity until better. Rest at home for two days.Drink plenty of fluids for the next 48 hours as needed. Avoid alcohol and NSAIDS. NSAIDS includeaspirin, ibuprofen (Advil) and naproxen (Aleve). Avoid fatty, fried/greasy, lactose-containing (such as milk,cheese and ice cream), salty and spicy foods until better. No sexual contact until symptoms resolve. Noalcohol. Do not smoke.(continue doxycycline as prescribed.).Warnings: GENERAL WARNINGS: Return or contact your physician immediately if your conditionworsens or changes unexpectedly, if not improving as expected, or if other problems arise.SPECIFICALLY, return if you develop pain in the pelvis, back or shoulder, fever, vomiting, the inability tokeep fluids down, blood in vomitus, blood in diarrhea, fainting, lightheadedness or vaginal bleeding; or forcontinued pain in the abdomen.Your Current Medications: Your current home medications have been reviewed.CONTINUE TAKING THE FOLLOWING MEDICATIONS:Doxycycline Oral : 100 mg 2x a day.Synthroid Oral.Follow-up:Follow up with your healthcare provider in three days even if well. Call for the next available appointment.Reason for referral: evaluation. Summary of care provided to patient via paper.Understanding of the discharge instructions verbalized by patient. Expected course of illness, dischargeinstructions, activity level, prescriptions x1, follow-up appointment and risks and benefits of treatmentreviewed with patient and understanding verbalized. Agrees to plan of care. ADDITIONAL INFORMATIONViral Gastroenteritis (Adult) 2 General Instructions [facility] Emergency Department [address] [place] [address] Phone #: ext- [phone] 06/09/2020 12:39 - Patient: IRENE OCHOA Sex: F : 1980 Age: 39yGastroenteritis is commonly called the "stomach flu," although it has nothing to do with influenza. It ismost often caused by a virus that affects the stom ach and intestinal tract and usually lasts from 2 to 7days. Common viruses causing gastroenteritis include norovirus, rotavirus, and hepatitis A. Non- viralcauses of gastroenteritis include bacteria, parasites, and toxins.The danger from repeated vomiting or diarrhea is dehydration. This is the loss of too much fluid fromthe body. When this occurs, body fluids must be replaced. Antibiotics don't help with this illnessbecause it is usually viral. Simple home treatment will be helpful.Symptoms of viral gastroenteritis may include: Watery, loose stools Stomach pain or abdominal cramps Fever and chills Nausea and vomiting Loss of bowel control Headache 3 General Instructions [facility] Emergency Department [address] [place] [address] Phone #: ext- [phone] 06/09/2020 12:39 Patient: IRENE OCHOA Sex: F : 1980 Age: 39yHome careGastroenteritis is transmitted by contact with the stool or vomit of an infected person. This can occurfrom person to person or from contact with a contaminated surface.Follow these guidelines when caring for yourself at home: If symptoms are severe, rest at home for the next 24 hours or until you are feeling better. Wash your hands with soap and water or use alcohol-based environmental engineering assistant to prevent the spread of infection. Wash your hands after touching anyone who is sick. Wash your hands or use alcohol-based environmental engineering assistant after using the toilet and before meals. Clean the toilet after each use.Remember these tips when preparing food: People with diarrhea should not prepare or serve food to others. When preparing foods, wash your hands before and after. Wash your hands after using cutting boards, countertops, knives, or utensils that have been in contact with raw food. Dry your hands with a single use towel. Keep uncooked meats away from cooked and pkoqo-xu-puo foods.MedicineYou may use acetaminophen or NSAID medicines like ibuprofen or naproxen to control fever unlessanother medicine was given. If you have chronic liver or kidney disease, talk with your healthcareprovider before using these medicines. Also talk with your provider if you've had a stomach ulceror gastrointestinal bleeding. Don't give aspirin to anyone under 18 years of age who is ill with a fever.It may cause severe liver damage. Don't use NSAIDS is you are already taking one for anothercondition (like arthritis) or are on aspirin (such as for heart disease or after a stroke).If medicine for vomiting or diarrhea are prescribed, take these only as directed. Nausea and diarrheamedicines are generally OK unless you have bleeding, fever, or severe abdominal pain.DietFollow these guidelines for food: Water and liquids are important so you don't get dehydrated. Drink a small amount at a time or suck on ice chips if you are vomiting. If you eat, avoid fatty, greasy, spicy, or fried foods. 4 General Instructions [facility] Emergency Department [address] [place] [address] Phone #: ext- [phone] 06/09/2020 12:39 Patient: IRENE OCHOA Sex: F : 1980 Age: 39y Don't eat dairy if you have diarrhea. This can make diarrhea worse. Avoid tobacco, alcohol, and caffeine which may worsen symptoms.During the first 24 hours (the first full day), follow the diet below: Beverages. Sports drinks, soft drinks without caffeine, joyce ian, mineral water (plain or flavored), decaffeinated tea and coffee. If you are very dehydrated, sports drinks aren't a good choice. They have too much sugar and not enough electrolytes. In this case, commercially available products called oral rehydration solutions, are best. Soups. Eat clear broth, consomm, and bouillon. Desserts. Eat gelatin, ice pops, and fruit juice bars.During the next 24 hours (the second day), you may add the following to the above: Hot cereal, plain toast, bread, rolls, and crackers Plain noodles, rice, mashed potatoes, chicken noodle or rice soup Unsweetened canned fruit (avoid pineapple), bananas Limit fat intake to less than 15 grams per day. Do this by avoiding margarine, butter, oils, mayonnaise, sauces, gravies, fried foods, peanut butter, meat, poultry, and fish. Limit fiber and avoid raw or cooked vegetables, fresh fruits (except bananas), and bran cereals. Limit caffeine and chocolate. Don't use spices or seasonings other than salt. Limit dairy products. Avoid alcohol.During the next 24 hours: Gradually resume a normal diet as you feel better and your symptoms improve. If at any time it starts getting worse again, go back to clear liquids until you feel better.Follow-up careFollow up with your healthcare provider, or as advised. Call your provider if you don't get better ubolce40 hours or if diarrhea lasts more than a week. Also follow up if you are unable to keep down liquidsand get dehydrated. If a stool (diarrhea) sample was taken, call as directed for the results.Call 911 5 General Instructions [facility] Emergency Department [address] [place] [address] Phone #: ext- [phone] 06/09/2020 12:39 Patient: IRENE OCHOA Sex: F : 1980 Age: 39yCall 911 if any of these occur: Trouble breathing Chest pain Confused Severe drowsiness or trouble awakening Fainting or loss of consciousness Rapid heart rate Seizure Stiff neckWhen to seek medical adviceCall your healthcare provider right away if any of these occur: Abdominal pain that gets worse Continued vomiting (unable to keep liquids down) Frequent diarrhea (more than 5 times a day) Blood in vomit or stool (black or red color) Dark urine, reduced urine output, or extreme thirst Weakness or dizziness Drowsiness Fever of 100.4F (38C) or higher, or as directed by your healthcare provider Bob kerns [phone] [employer]. [address] [place] [address]. All rights reserved. This information is not intended as asubstitute for professional medical care. Always follow your healthcare professional's instructions.Bladder Infection, Female (Adult) 6 General Instructions [facility] Emergency Department [address] [place] [address] Phone #: ext- [phone] 06/09/2020 12:39 Patient: IRENE OCHOA Sex: F : 1980 Age: 39yUrine is normally doesn't have any bacteria in it. But bacteria can get into the urinary tract from theskin around the rectum. Or they can travel in the blood from elsewhere in the body. Once they are inyour urinary tract, they can cause infection in the urethra (urethritis), the bladder (cystitis), or thekidneys (pyelonephritis).The most common place for an infection is in the bladder. This is called a bladder infection. This isone of the most common infections in women. Most bladder infections are easily treated. They arenot serious unless the infection spreads to the kidney.The phrases "bladder infection," "UTI," and "cystitis" are often used to describe the same thing. Butthey are not always the same. Cystitis is an inflammation of the bladder. The most common cause ofcystitis is an infection.SymptomsThe infection causes inflammation in the urethra and bladder. This causes many of the symptoms.The most common symptoms of a bladder infection are: Pain or burning when urinating Having to urinate more often than usual Urgent need to urinate Only a small amount of urine comes out Blood in urine Abdominal discomfort. This is usually in the lower abdomen above the pubic bone. 7 General Instructions [facility] Emergency Department [address] [place] [address] Phone #: ext- [phone] 06/09/2020 12:39 Patient: IRENE OCHOA Sex: F : 1980 Age: 39y Cloudy urine Strong- or bad-smelling urine Unable to urinate (urinary retention) Unable to hold urine in (urinary incontinence) Fever Loss of appetite Confusion (in older adults)CausesBladder infections are not contagious. You can't get one from someone else, from a toilet seat, orfrom sharing a bath.The most common cause of bladder infections is bacteria from the bowels. The bacteria get onto theskin around the opening of the urethra. From there, they can get into the urine and travel up to thebladder, causing inflammation and infection. This usually happens because of: Wiping improperly after urinating. Always wipe from front to back. Bowel incontinence Procedures such as having a catheter inserted Older age Not emptying your bladder. This can allow bacteria a chance to grow in your urine. Dehydration Constipation Sex Use of a diaphragm for controlTreatmentBladder infections are diagnosed by a urine test. They are tr eated with antibiotics and usually clear upquickly without complications. Treatment helps prevent a more serious kidney infection.Medicines 8 General Instructions [facility] Emergency Department [address] [place] [address] Phone #: ext- [phone] 06/09/2020 12:39 Patient: IRENE OCHOA Sex: F : 1980 Age: 39yMedicines can help in the treatment of a bladder infection: Take antibiotics until they are used up, even if you feel better. It is important to finish them to make sure the infection has cleared. You can use acetaminophen or ibuprofen for pain, fever, or discomfort, unless another medicine was prescribed. If you have chronic liver or kidney disease, talk with your healthcare provider before using these medicines. Also talk with your provider if you've ever had a stomach ulcer or gastrointestinal bleeding, or are taking blood-thinner medicines. If you are given phenazopydridine to reduce burning with urination, it will cause your urine to become a bright orange color. This can stain clothing.Care and preventionThese self-care steps can help prevent future infections: Drink plenty of fluids to prevent dehydration and flush out your bladder. Do this unless you must restrict fluids for other health reasons, or your doctor told you not to. Proper cleaning after going to the bathroom is important. Wipe from front to back after using the toilet to prevent the spread of bacteria. Urinate more often. Don't try to hold urine in for a long time. Wear loose-fitting clothes and cotton underwear. Avoid tight-fitting pants. Improve your diet and prevent constipation. Eat more fresh fruit and vegetables, and fiber, and less junk and fatty foods. Avoid sex until your symptoms are gone. Avoid caffeine, alcohol, and spicy foods. These can irritate your bladder. Urinate right after intercourse to flush out your bladder. If you use control pills and have frequent bladder infections, discuss it with your doctor.Follow-up careCall your healthcare provider if all symptoms are not gone after 3 days of treatment. This is especiallyimportant if you have repeat infections.If a culture was done, you will be told if your treatment needs to be changed. If directed, you cancall to find out the results.If X-rays were done, you will be told if the results will affect your treatment. 9 General Instructions [facility] Emergency Department [address] [place] [address] Phone #: ext- [phone] 06/09/2020 12:39 Patient: IRENE OCHOA Sex: F : 1980 Age: 39yCall 911Call 911 if any of the following occur: Trouble breathing Hard to wake up or confusion Fainting or loss of consciousness Rapid heart rateWhen to seek medical adviceCall your healthcare provider right away if any of these occur: Fever of 100.4F (38.0C) or higher, or as directed by your healthcare provider Symptoms are not better by the third day of treatment Back or belly (abdominal) pain that gets worse Repeated vomiting, or unable to keep medicine down Weakness or dizziness Vaginal discharge Pain, redness, or swelling in the outer vaginal area (labia) 6087-2010 [employer]. [address], [place] [address]. All rights reserved. This information is not intended as asubstitute for professional medical care. Always follow your healthcare professional's instructions.Uncontrolled High Blood Pressure (Established)Your blood pressure was unusually high today. This can occur if you've missed doses of your bloodpressure medicine. Or it can happen if you are taking other medicines. These include some asthmainhalers, decongestants, diet pills, and street drugs like cocaine and amphetamine. 10 General Instructions [facility] Emergency Department [address] [place] [address] Phone #: ext- [phone] 06/09/2020 12:39 Patient: IRENE OCHOA Sex: F : 1980 Age: 39yOther causes include: Weight gain More salt in your diet Smoking CaffeineYour blood pressure can also rise if you are emotionally upset or in intense pain. It may go back tonormal after a period of rest.Blood pressure measurements are given as 2 numbers. Systolic blood pressure is the upper number.This is the pressure when the heart contracts. Diastolic blood pressure is the lower number. This isthe pressure when the heart relaxes between beats. You will see your blood pressure readingswritten together. For example, a person with a systolic pressure of 118 and a diastolic pressure of 78will have 118/78 written in the medical record. To be high blood pressure, the numbers must behigher when tested over a period of time.Blood pressure is categorized as normal, elevated, or stage 1 or stage 2 high blood pressure: Normal blood pressure is systolic of less than 120 and diastolic of less than 80 (120/80) Elevated blood pressure is systolic of 120 to 129 and diastolic less than 80 Stage 1 high blood pressure is systolic is 130 to 139 or diastolic between 80 to 89 Stage 2 high blood pressure is when systolic is 140 or higher or the diastolic is 90 or higherUncontrolled high blood pressure can cause serious health problems. It raises your risk for heartattack, stroke, and heart failure. In general, if you have high blood pressure, keeping your bloodpressure below 130/80 mmHg may help prevent these problems. Your healthcare provider mayprescribe medicine to help control blood pressure if lifestyle changes are not enough.Home careIt's important to take steps to lower your blood pressure. If you are taking blood pressure medicine,the guidelines below may help you need less or no medicines in the future. Start a weight-loss program if you are overweight. Cut back on the amount of salt in your diet: o Avoid high-salt foods like olives, pickles, smoked meats, and salted potato chips. o Don't add salt to your food at the table. o Use only small amounts of salt when cooking. 11 General Instructions [facility] Emergency Department [address] [place] [address] Phone #: ext- [phone] 06/09/2020 12:39 Patient: IRENE OCHOA Sex: F : 1980 Age: 39y Start an exercise program. Talk with your healthcare provider about what exercise program is best for you. It doesn't have to be difficult. Even brisk walking for 20 minutes 3 times a week is a good form of exercise. Avoid medicines that stimulates the heart. This includes many kzzu-kij-ngpqjlz cold and sinus decongestant pills and sprays, as well as diet pills. Check the warnings about high blood pressure on the label. Before purchasing any ejhu-otf-ckzuxqc medicines or supplements, always ask the pharmacist about the product's potential interaction with your high blood pressure and your medicines. Stimulants such as amphetamine or cocaine could be lethal for someone with high blood pressure. Never take these. Limit how much caffeine you drink. Or switch to noncaffeinated beverages. Stop smoking. If you are a long-time smoker, this can be hard. Enroll in a stop-smoking program to make it more likely that you will succeed. Talk with your provider about ways to quit. Learn how to handle stress better. This is an important part of any program to lower blood pressure. Learn ways to relax. These include meditation, yoga, and biofeedback. If medicines were prescribed, take them exactly as directed. Missing doses may cause your blood pressure to get out of control. If you miss a dose or doses of your medicines, check with your healthcare provider or pharmacist about what to do. Consider buying an automatic blood pressure machine. Your provider may recommend a certain type. You can get one of these at most pharmacies. Measure your blood pressure twice a day, in the morning, and in the late afternoon. Keep a written record of your home blood pressure readings and take the record to your medical appointments.Here are some additional guidelines on home blood pressure monitoring from the [place] [employer]. Don't smoke or drink coffee for 30 minutes Go to the bathroom before the test. Relax for 5 minutes before taking the measurement. Sit correctly. Be sure you r back is supported. Don't sit on a couch or soft chair. Uncross your feet and place them flat on the floor. Place your arm on a solid, flat surface like a table with the upper arm at heart level. Make certain the middle of the cuff is directly above the bend of the elbow. Check the monitor's instruction manual for an illustration. 12 General Instructions [facility] Emergency Department [address] [place] [address] Phone #: ext- [phone] 06/09/2020 12:39 Patient: IRENE OCHOA Sex: F : 1980 Age: 39y Take multiple readings. When you measure, take 2 or 3 readings one minute apart and record all of the results. Take your blood pressure at the same time every day, or as your healthcare provider recommends. Record the date, time, and blood pressure reading. Take the record with you to your next appointment. If your blood pressure monitor has a built-in memory, simply take the monitor with you to your next appointment. Call your provider if you have several high readings. Don't be frightened by a single high reading, but if you get several high readings, check in with your healthcare provider. Note: When blood pressure reaches a systolic (top number) of 180 or higher or a diastolic (bottom number) of 110 or higher, emergency medical treatment is required. Call your healthcare provider immediately.Follow-up careRegular visits to your own healthcare provider for blood pressure and medicine checks are animportant part of your care. Make a follow-up appointment as directed. Bring the record of your homeblood pressure readings to the appointment.When to seek medical adviceCall your healthcare provider right away if any of these occur: Blood pressure reaches a systolic (top number) of 180 or higher or diastolic (bottom number) of 110 or higher, emergency medical treatment is required. Chest, arm, shoulder, neck, or upper back pain Shortness of breath Severe headache Throbbing or rushing sound in the ears Nosebleed Extreme drowsiness, confusion, or fainting Dizziness or dizziness with spinning sensation (vertigo) Weakness in an arm or leg or on one side of the face Trouble speaking or seeing 13 General Instructions [facility] Emergency Department [address] [place] [address] Phone #: ext- [phone] 06/09/2020 12:39 Patient: IRENE OCHOA Sex: F : 1980 Age: 39y [phone] [employer]. [address] [place] [address], [place] [id number]. All rights reserved. This information is not intended as asubstitute for professional medical care. Always follow your healthcare professional's instructions.[place] DietYour healthcare provider may recommend a bland diet if you have an upset stomach. It consists offoods that are mild and easy to digest. It is better to eat small frequent meals rather than 3 largemeals a day.BeveragesOK: Fruit juices, non-caffeinated teas and coffee, non-carbonated watersAvoid: Carbonated beverage, caffeinated tea and coffee, all alcoholic beveragesBreadOK: Refined white, wheat or rye bread, alcon or soda crackers, [place] toast, plain rolls, bagelsAvoid: Whole-grain breadCerealOK: Refined cereals: cooked or ready to eatAvoid: Whole-grain cereals and granola, or those containing bran, seeds or nutsDesserts 14 General Instructions [facility] Emergency Department [address] [place] [address] Phone #: ext- [phone] 06/09/2020 12:39 Patient: IRENE OCHOA Sex: F : 1980 Age: 39yOK: Peanut butter and all others except those to "avoid"Avoid: Chocolate, cocoa, coconut, popcorn, nuts, seeds, jam, marmaladeFruitsOK: Canned, cooked, frozen or fresh fruits without seeds or tough skinAvoid: Olives, skin and seeds of fruit, dried fruitMeatsOK: All fresh or preserved meat, fish and fowlAvoid: Any that are prepared with those spices to "avoid"Cheese and eggsOK: Eggs, cottage cheese, cream cheese, other cheesesAvoid: All cheeses made with those spices to "avoid"Potatoes and pastaOK: Potato, rice, macaroni, noodles, spaghettiAvoid: NoneSoupsOK: All soups without heavy seasoningAvoid: Soups made with those spices to "avoid"VegetablesOK: Canned, cooked, fresh or frozen mildly flavored vegetables without seeds, skins or coarse fiberAvoid: Vegetables prepared with those spices to "avoid"; skin and seeds of vegetables and those withcoarse fiber, broccoli, cabbage, cauliflower, cucumber, green peppers, and cornSpicesOK: Salt, lemon and limejuice, vinegar, all extracts, umer, cinnamon, thyme, mace, allspice, paprikaAvoid: Raymond powder, cloves, pepper, seed spices, garlic, gravy pickles, highly seasoned saladdressings 15 General Instructions [facility] Emergency Department [address] [place] [address] Phone #: ext- [phone] 06/09/2020 12:39 Patient: IRENE OCHOA Sex: F : 1980 Age: 39y [id number] [employer] [place] [address]. All rights reserved. This information is not intended as asubstitute for professional medical care. Always follow your healthcare professional's instructions.Clear Liquid DietClear liquids are any liquid that you can see through. They are also very easy to digest. You may beput on a clear liquid diet if you are recovering from irritation or infection of the stomach or intestinaltract. This diet may also be used before surgery or special procedures such as a colonoscopy. Youshould not be on this diet for more than 3 days. Below are some clear liquids you can have on thisdiet.Adults and children over 2 years oldAdults should drink a total of 2 to 3 quarts of liquid per day. It may be easier to drink small frequentservings rather than a few large ones. Liquids can include: Fruit juices. Strained orange juice or lemonade (no pulp); apple, grape, and cranberry juice; clear fruit drinks Beverages. Sport drinks, sodas, mineral water (plain or flavored), tea, black coffee, liquid gelatin (add twice the recommended amount of water) Soups. Clear broth Desserts. Plain gelatin, popsicles, fruit juice barsChildren under 2 years oldOral rehydration fluids are available at drug stores and most grocery stores. You don't need aprescription. [id number] [employer]. [address] [place] [address], [place] [address]. All rights reserved. This information is not intended as asubstitute for professional medical care. Always follow your healthcare professional's instructions. 16 General Instructions [facility] Emergency Department [address] [place] [address] Phone #: ext- [phone] 06/09/2020 12:39 Patient: IRENE OCHOA Sex: F : 1980 Age: 39yYou have been given the following additional information:Gastroenteritis, Viral (Adult)Bladder Infection, Female (Adult)High Blood Pressure, Established, Out of ControlDiet, [place] (Adult)Clear Liquid DietNo strenuous activity until better. Rest at home for two days.(Electronically signed by LUIS Knox 06/09/2020 18:38) Name Value Range Interpretation Code Description Data Luzmaria rce(s) Supporting Document(s) ID Date Data Source [id number] 06/09/2020 12:49:00 PM [facility] 1 Clinical Report - Nurses [facility] Emergency Department [address] [place] [address] Phone #: ext- [phone] 06/09/2020 12:39 Patient: IRENE OCHOA Sex: F : 1980 Age: 39yTRIAGEArrived by private vehicle. Historian: patient. Accompanied by family. ( infection in left foot has beenbeing treated, started treatment and then tuesday started vomitting).Acuity: LEVEL 3.Chief Complaint: ABDOMINAL PAIN, NAUSEA and VOMITING.Alert.Onset. (tuesday). She has had abdominal pain. 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 Sepsis Screen negative. No suspected or confirmed signs ofinfection present. --12:48 06/09/20 Cee Browne R.N.12:43 06/09/20. BP: 178/120. MAP: 139. HR: 102. RR: 18. O2 saturation: 100%. Temp: 97.8 F. Pain levelnow: 12/11. --12:48 06/09/20 Cee Browne R.N.Weight: 82.5 kg stated. Height/Length: 68 inches Per Patient. BMI: 27.7. --12:42 06/09/20 Cee Browne R.N.MedicationsSynthroid Oral. --12:45 06/09/20 Cee Browne R.N. Doxycycline Oral 100 mg, 2x a day. --17:09 06/09/20 Santiago Franklin RNThe following entry was struck by Santiago Franklin RN, 17:09 (06/09/20) Reason - wrong value. antiboitic. --12:45 06/09/20 Cee Browne R.N. .AllergiesLatex. --12:45 06/09/20 Cee Browne R.N.PROBLEMS:Sinusitis.Strep Throat.ITP.Foot infection. --12:46 06/09/20 Cee Browne R.N.Hypertension. --17:32 06/09/20 Santiago Franklin RN.ADDITIONAL SURGERIES:Cholecystectomy. --12:46 06/09/20 Cee Browne R.N. 2 Clinical Report - Nurses [facility] Emergency Department [address] [place] [address] Phone #: ext- [phone] 06/09/2020 12:39 Patient: IRENE OCHOA Sex: F : 1980 Age: 39y History PAST MEDICAL HX: Immunizations: up-to-date. Last normal menstrual perio d- 4 days ago. SOCIAL HX: Never smoker. No alcohol use or drug use. No recent travel. No known contact with a sick individual. She was offered HIV testing but declined and hepatitis C testing but declined. She has not traveled outside the [place] Infectious disease exposure: No infectious disease exposure. 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 Patient is not a known carrier of tuberculosis, hepatitis, HIV, VRE or CRE. SELF HARM ASSESSMENT: Self harm assessment was performed. The patient answered "no" to the question(s) "Have you recently felt down, depressed, or hopeless?", "Do you have thoughts of harming or killing yourself?", "Do you have a plan for harming or killing yourself?", "Have you recently had thoughts about harming or killing others?", "Do you have any dangerous items in your possession?", "Have you noticed less interest or pleasure in doing things?", "Are you here because you tried to hurt yourself?" and "Have you ever tried to hurt yourself before today?". ABUSE ASSESSMENT: Abuse assessment. Abuse denied. No suspicion of abuse. No report of abuse. NUTRITIONAL RISK ASSESSMENT: The nutritional risk assessment revealed no deficiencies. FUNCTIONAL ASSESSMENT: Functional assessment: no impairments noted. LEARNING NEEDS ASSESSMENT: The learning needs assessment revealed no monroe iers. FALL RISK ASSESSMENT: Fall risk assessment completed. No risk factors identified. SKIN INTEGRITY ASSESSMENT: Skin integrity risk assessment completed. No skin integrity risk identified. --12:48 06/09/20 Cee Browne R.N. Interventions Identification band on patient. To treatment room. --12:48 06/09/20 Cee Browne R.N.PHYSICAL QYKMICYETV10:09 06/09/20. Ambulatory to room.GENERAL / NEURO / PSYCH: Alert. Oriented X 4. Appears in pain.RESPIRATORY: Respirations not labored. Breath sounds within normal limits.CVS: Capillary refill less than 2 seconds.GI / : Abdomen soft. Bowel sounds within normal limits.SKIN: Skin is warm and dry. Tenderness to left foot. Swelling to left foot. Erythema to left foot. --13: Santiago Franklin RN.NURSING PROGRESS NOTESPatient gowned. Reassurance given. Two patient identifiers checked. Call light placed in reach. Siderails up x 2. Bed placed in lowest position. Brakes of bed on. Patient ready for evaluation- ED ashwini SMITH notified. --12:48 06/09/20 Cee Browne R.N. 3 Clinical Report - Nurses [facility] Emergency Department [address] [place] [address] Phone #: ext- [phone] 06/09/2020 12:39 Patient: IRENE OCHOA Sex: F : 1980 Age: 39y13:30 06/09/20. BP: 171/114. MAP: 133. HR: 98. RR: 18. O2 saturation: 99%. --13:30 06/09/20 Jen Landrum ER Wler120:27 06/09/2020 Site #1 started via IV in the left forearm with an 20g angiocath; two attempts. --13: Santiago Franklin RN13:27 06/09/2020 Started bag #1 1000 mL IV Fluids NS; bolus of 1000 mL over 1 hour(s) then at 100mL/hr over 5 hour(s) via site #1 via IV pump. Allergies verified and confirmed 5 rights. IV patencyestablished. IV site checked: no pain, redness, or swelling. IV flushed thoroughly pre- and post- medicationadministration. Information reviewed with patient. --13:37 06/09/20 Santiago Franklin RN13:29 06/09/2020 Zofran (Ondansetron HCl) IVP 4 mg given over 30 second(s) via site #1. Allergiesverified and confirmed 5 rights. IV patency established. IV site checked: no pain, redness, or swelling. IVflushed thoroughly pre- and post-medication administration. IVP given by RN. Information reviewed withpatient. --13:37 06/09/20 Santiago Franklin RNCardiac rhythm: normal sinus rhythm; (0852). EKG time: (13:25 06/09/2020). EKG was performed by kaylah and shown to the PA. nsr. --13:38 06/09/20 Santiago Franklin RN13:47 06/09/2020 Site #1 removed (infiltrated). --13:57 06/09/20 Santiago Franklin RN13:47 06/09/2020 Site #2 started via IV in the right antecubital space with an 20g angiocath; one attempt.Saline lock flushed with 10 mL saline. --13:58 06/09/20 Santiago Franklin RNChecked patient name and birthdate: patient confirmed. Blood samples drawn by tech per protocol ;labeled in presence of the patient. (2173). --13:58 06/09/20 Santiago Franklin RN14:04 06/09/20. BP: 178/105. MAP: 129. HR: 88. RR: 16. O2 saturation: 98%. --14:04 06/09/20 Jen Landrum ER Lxus404:00 06/09/2020 PROTONIX (Pantoprazole Sodium) IVP 40 mg given over 3 minute(s) via site #2.Allergies verified and confirmed 5 rights. IV patency established. IV site checked: no pain, redness, orswelling. IV flushed thoroughly pre- and post- medication administration. IVP given by RN. Informationreviewed with patient. --14:10 06/09/20 Santiago Franklin RN14:10 06/09/2020 Zofran IVP Response: symptoms have improved the patient feels better. Physicianassistant notified. --14:10 06/09/20 Santiago Franklin RNContact isolation precautions initiated. Gowns and gloves in use. (6353). --14:10 06/09/20 Santiago Franklin RN14:27 06/09/20. BP: 173/107. MAP: 129. HR: 88. RR: 16. O2 saturation: 100%. --14:28 06/09/20 Jen Landrum ER Tech1 4 Clinical Report - Nurses [facility] Emergency Department [address] [place] [address] Phone #: ext- [phone] 06/09/2020 12:39 Patient: IRENE OCHOA Sex: F : 1980 Age: 39y14:40 06/09/2020 PROTONIX IVP Response: symptoms have improved the patient feels better. Physicianassistant notified. --14:40 06/09/20 Santiago Franklin RN14:40 06/09/2020 IV Fluids NS via IV site #1 Bag Change: bag #1 infused. Total amount infused: 1000.STARTED bag #2 (1000 mL) at 100 mL/hr via IV pump. Confirmed 5 rights. IV patency established. IV sitechecked: no pain, redness, or swelling. IV flushed thoroughly. --14:40 06/09/20 Santiago Franklin RN14:55 06/09/20. BP: 168/106. MAP: 126. HR: 90. RR: 16. O2 saturation: 100%. --14:56 06/09/20 Jen Landrum ER [id number] 06/09/2020 Clonidine PO Tablets 0.1 mg given. Allergies verified and confirmed 5 rights. Informationreviewed with patient. --15:05 06/09/20 Santiago Franklin RN( Zane Sy notified B/P still elevated V/O clonidine received and given). --15:06 06/09/20 SAIDA Fuller15:28 06/09/20. BP: 169/106. MAP: 127. HR: 91. RR: 16. O2 saturation: 98%. --15:29 06/09/20 Jen Landrum ER [id number] transported to CT by wheelchair with mask and radiology receptionist. (1540). --15:41 06/09/20 LukesanketRigoberto, RNPatient returned from CT by wheelchair with mask and radiology receptionist. (1550). --15:53 06/09/20 oM mcdowell RN( 1555 pt stating feeling better after I V fluids). --15:54 06/09/20 Santiago Franklin RN15:59 06/09/20. BP: 169/107. MAP: 127. HR: 88. RR: 16. O2 saturation: 98%. --15:59 06/09/20 Rory EDPancho, MERY Li [id number] patient name and birthdate: patient confirmed. Clean catch urine collected with return ofamber-colored urine; sample sent to lab for urinalysis. Specimen labeled in the presence of the patient([id number]). --16:54 06/09/20 Santiago Franklin RN( 1655 P A notified of B/P with new orders received). --16:55 06/09/20 Santiago Franklin RN16:50 06/09/20. BP: 171/110. MAP: 130. HR: 87. RR: 16. O2 saturation: 96% on room air. Pain level now:0/10. --16:55 06/09/20 Santiago Franklin RN16:49 06/09/2020 Clonidine PO Response: symptoms are the same. The patient feels the same. Physicianassistant notified. --16:59 06/09/20 Santiago Franklin RN16:59 06/09/2020 Clonidine PO Tablets 0.1 mg given. Allergies verified and confirmed 5 rights. Information 5 Clinical Report - Nurses [facility] Emergency Department [address] [place] [address], [place] [address] Phone #: ext- [phone] 06/09/2020 12:39 Patient: IRENE OCHOA Sex: F : 1980 Age: 39y reviewed with patient. --16:59 06/09/20 Santiago Franklin RN ( 1718 P A Darron at bedside and aware of elevated B/P, manual b/p 170/112). --17:22 06/09/20 Santiago Franklin RN 17:18 06/09/20. BP: 173/111. MAP: 131. HR: 92. RR: 18. O2 saturation: 96% on room air. Pain level now: 0/10. --17:22 06/09/20 Santiago Franklin RN 17:04 06/09/2020 Clonidine PO Response: symptoms are the same. The patient feels the same. Physician front office medical assistant notified. --17:29 06/09/20 Santiago Franklin RN 17:25 06/09/2020 Hydralazine IVP 20 mg given over 2 minute(s) via site #2. Allergies verified and confirmed 5 rights. IV patency established. IV site checked: no pain, redness, or swelling. IV flushed thoroughly pre- and post-medication administration. IVP given by RN. Information reviewed with patient. --17:29 06/09/20 Santiago Franklin RN 17:44 06/09/20. BP: 158/98 (regular adult cuff) taken on the left arm, via an automated monitor, while lying. MAP: 118. HR: 110. RR: 16. O2 saturation: 99% on room air. Pain level now: 0/10. --17:45 06/09/20 Santiago Franklin RN 17:45 06/09/2020 Hydralazine IVP Response: symptoms have improved the patient feels better. Physician front office medical assistant notified. --17:45 06/09/20 Santiago Franklin RN.DISPOSITION / DISCHARGE 17:58 06/09/20. BP: 134/84 (regular adult cuff) taken on the left arm, via an automated monitor, while lying. MAP: 100. HR: 108. RR: 16. O2 saturation: 99% on room air. Temp: 98.2 F (oral). Pain level now: 0/10. --18:02 06/09/20 Santiago Franklin RN 18:07 06/09/2020 Site #2 removed upon discharge. Catheter intact. Bandaid applied. --18:17 06/09/20 Santiago Franklin RN 18:06/09/2020 IV Fluids NS via IV site #1 Discontinued: bag #2 STOPPED upon discharge. Total amount infused: 150 mL. IV patency established. IV site checked: no pain, redness, or swelling. IV flushed thoroughly. --18:17 06/09/20 Santiago Franklin RN 18:16 06/09/20. Departure time: 18:16 06/09/2020. Condition at departure: improved. No learning barriers present . Discharge instructions provided and reviewed with the patient. Reviewed medication(s) (avoid ansaids). Reviewed rest instructions (increase fluids). Reviewed referrals. Provided to follow-up provider. Patient verbalized understanding. Written instructions provided in Yoruba. The patient was discharged by the physician front office medical assistant. She was discharged home and accompanied by spouse. She left ambulatory and via private vehicle. Spouse driving. --18:16 06/09/20 Santiago Franklin RN. 6 Clinical Report - Nurses [facility] Emergency Department [address] [place] [address] Phone #: [phone] uqq- [phone] 06/09/2020 12:39 Patient: IRENE OCHOA Sex: F : 1980 Age: 39yLocked/Released at 06/09/2020 18:36 by Santiago Franklin RN Name Value Range Interpretation Code Description Data Luzmaria rce(s) Supporting Document(s) ID Date Data Source [id number] 06/09/2020 12:49:00 PM EST [facility] 1 Clinical Report - Physicians/Mid Levels [facility] Emergency Department [address] [place] [address] Phone #: ext- [phone] 06/09/2020 12:39 Patient: IRENE OCHOA Sex: F : 1980 Age: 39y Time Seen: 12:50 06/09/2020. Arrived- By private vehicle. Historian- patient. Disposition decision: 18:00 06/09/2020.HISTORY OF PRESENT ILLNESS Chief Complaint: ABDOMINAL PAIN and VOMITING and NAUSEA. This started about 2 days ago; Lower abdominal pain described as sharp, cramping that started 2 days ago with NV, no diarrhea or fever, currently being treated with doxycycline by PCM for infection of plantar aspect L foot (states MRSA positive). Pt states infe ction getting better. No fever. Pt states she is also getting heartburn with the nausea. It is described as stabbing, cramping and burning and it is described as located in the right lower quadrant, epigastric area and left lower quadrant and in the lower abdomen. At its maximum, severity described as 6 / 10. When seen in the E.D., severity described as 6 / 10. Modifying factors. Not worsened by anything. Not relieved by anything. The patient has had nausea and vomiting. No loss of appetite or diarrhea. No recent travel. Similar symptoms previously. None. Recent medical care: The patient was seen recently at another facility in a clinic.REVIEW OF SYSTEMSLast normal menstrual period- about 4 days ago. No constipation, black stools, hematemesis, difficultywith urination or pain with urination. No urinary frequency, missed periods, abnormal bleeding, bloodystools or irregular periods. No fever, headache, sore throat, blurred vision or chest pain. No difficultybreathing, cough, joint pain, skin rash or chills. No back pain. Last bowel movement: recently. Thepatient has not had weight loss.PAST HISTORYSee nurses notes. Problems: Hypothyroidism. Acute Otalgia. Bronchitis. Threatened . Renal Colic. Other Disease. . Care. Sinusitis. Strep Throat. 2 C linical Report - Physicians/Mid Levels [facility] Emergency Department [address] [place] [address] Phone #: ext- [phone] 06/09/2020 12:39 Patient: IRENE OCHOA [facility]#: [id number] Sex: F : 1980 Age: 39y ITP. Foot infection. Additional Surgeries: Cholecystectomy. Dilatation Curettage. Gallbladder Surgery. Medications: Synthroid Oral. antiboitic. Allergies: Latex.SOCIAL HISTORYNever smoker. No alcohol use or drug use. No recent travel.ADDITIONAL NOTESThe nursing notes have been reviewed with agreement regarding the chief complaint, HPI, ROS, PMH andpatient medications and allergies.PHYSICAL EXAMVital Signs: 06/09/2020 17:44 BP: lying 158/98. MAP: 118. HR: 110. RR: 16. O2 saturation: 99% on roomair. Pain level now: 010.06/09/2020 17:18 BP: 173/111. MAP: 131. HR: 92. RR: 18. O2 saturation: 96% on room air. Pain levelnow: 010.06/09/2020 16:50 BP: 171/110. MAP: 130. HR: 87. RR: 16. O2 saturation: 96% on room air. Pain levelnow: 0.06/09/2020 15:59 BP: 169/107. MAP: 127. HR: 88. RR: 16. O2 saturation: 98%.06/09/2020 15:28 BP: 169/106. MAP: 127. HR: 91. RR: 16. O2 saturation: 98%.06/09/2020 14:55 BP: 168/106. MAP: 126. HR: 90. RR: 16. O2 saturation: 100%.06/09/2020 14:27 BP: 173 /107. MAP: 129. HR: 88. RR: 16. O2 saturation: 100%.06/09/2020 14:04 BP: 178/105. MAP: 129. HR: 88. RR: 16. O2 saturation: 98%.06/09/2020 13:30 BP: 171/114. MAP: 133. HR: 98. RR: 18. O2 saturation: 99%.06/09/2020 12:43 BP: 178/120. MAP: 139. HR: 102. RR: 18. O2 saturation: 100%. Temp: 97.8 F. Painlevel now: 12/11. Have been reviewed as abnormal. Hypertensive. Mean arterial pressure- normal.Tachycardic. Respiratory rate normal. Temperature normal. Oxygen saturation normal.Appearance: Alert. Oriented X3. No acute distress. Anxious.Eyes: Pupils equal, round and reactive to light. Eyes normal inspection. ENT: Ears normal. Nose normal. Pharynx normal.Neck: Normal inspection. Neck supple.CVS: Tachycardia. Heart sounds normal. Pulses normal.Respiratory: No respiratory distress. Painless inspiration. Breath sounds normal. Chest nontender.Abdomen: Soft. Mild tenderness in the lower abdomen. Bowel sounds normal. No organomegaly. No 3 Clinical Report - Physicians/Mid Levels [facility] Emergency Department [address] [place] [address] Phone #: ext- [phone] 06/09/2020 12:39 Patient: IRENE OCHOA Sex: F : 1980 Age: 39y mass. Femoral pulses equal. Back: Normal inspection. Skin: Skin warm and dry. Normal skin color. No rash. Normal skin turgor. (resolving cellulitis and open wound ( now scabbed over) to plantar aspect L foot). Extremities: Extremities exhibit normal ROM. No lower extremity edema. Neuro: Oriented X 3. No motor deficit. No sensory deficit. Reflexes normal.LABS, X-RAYS, AND EKGEKG: EKG time: 13:29 06/09/2020. No acute process. No acute ischemia. Normal sinus rhythm.Rate: 91. Normal P waves. Normal NAOMI. Normal QRS complex. Normal axis. Normal ST and Twaves, QT and QTc. EKG unchanged when compared with prior EKG. (23 Nov 2016). The study hasbeen interpreted contemporaneously by me. The study has been independently viewed by me. Artifactpresent. I agree with and confirm the computer reading of the EKG. Interpretation time: 13:.Abdominal CT: Fatty liver. Normal appendix. 4.7 x 4.1 L Ovarian cyst that is likely benign. Study type:abdomen and pelvis. Abdominal CT performed with IV contrast. The study was independently viewed byme and interpreted by the radiologist and contemporaneously by me. Interpretation time: 16:.Laboratory Tests: Laboratory tests have been ordered, with results reviewed and considered in themedical decision making process. Troponin-T: (LAYNE: 06/09/2020 13:50) ( [facility] 06/09/2020 14:15) Final results Test Result Flag Units (Reference) TROPONIN T <0.01 NG/ML (0.00 - 0.10) TROPONIN T0.1 ng/ml Recommended as the clinical threshold value forTroponin T. Beta-HCG, Qual Serum: (LAYNE: 06/09/2020 13:50) ( [facility] 06/09/2020 14:08) Final results Test Result Flag Units (Reference) HCG SERUM QUAL NEGATIVE (NORMAL: NEGAT HCG SERUM QL REENTER NEGATIVE (NORMAL: NEGAT { KIT LOT # [id number] ){ KIT EXP DATE 04.08.21 ){ PROCEDURAL CONTROL VALID ) CBC w Diff: (LAYNE: 06/09/2020 13:50) ( [facility] 06/09/2020 14:03) Final results Test Result Flag Units (Reference) CBC W/AUTOMATED DIFF COMPLETE BLOOD COUNT WBC 4.3 10/uL (4.2 - 11.0) RBC 4.80 10/uL (4.20 - 5.40) HEMOGLOBIN 16.2 H g/dL (12.0 - 16.0) HEMATOCRIT 45.9 % (37.0 - 47.0) MCV 95.6 fL (81.0 - 101) MCH 33.8 pg (27.0 - 34.0) MCHC 35.3 g/dL (31.0 - 36.0) RDW 12.7 % (11.5 - 14.5) PLATELETS 96 L 10/uL (150 - 450) MPV 10.5 H fL (7.4 - 10.4) NEUT 64.3 % (37.0 - 80.0) 4 Clinical Report - Physicians/Mid Levels [facility] Emergency Department [address] [place] [address] Phone #: ext- [phone] 08/10/2019 12:39 Patient: IRENE OCHOA Sex: F : 1980 Age: 39y LYMPH 25.6 % (25.0 - 40.0) MONO 8.7 H % (3.0 - 8.0) EOS 0.2 % (0.0 - 7.0) BASO 0.5 % (0.0 - 2.5) %IG 0.7 H % (0.0 - 0.0) %NRBC 0.0 % (0.0 - 0.0) #NEUT 2.73 10/uL (2.00 - 6.90) #LYMPH 1.09 10/uL (0.60 - 3.40) #MONO 0.37 10/uL (0.00 - 0.90) #EOS 0.01 10/uL (0.00 - 0.70) #BASO 0.02 10/uL (0.00 - 0.20) #IG 0.03 10/uL (0.00 - 0.10) #NRBC 0.00 10/uL (0.00 - 0.00) MANUAL DIFF NOT INDICATED RBC MORPH NOT INDICATEDCMP: (LAYNE: 06/09/2020 13:50) ( MsgRcvd 06/09/2020 14:18) Final results Test Result Flag Units (Reference) COMPREHENSIVE METABOLIC PANEL COMPREHENSIVE METABOLIC PANEL SODIUM 139 mEq/L (134 - 153) POTASSIUM 3.5 L mEq/L (3.6 - 5.0) CHLORIDE 103 mEq/L (98 - 107) CO2 24 MEQ/L (22 - 30) GLUCOSE 112 H MG/DL (65 - 110) BUN 14 MG/DL (7 - 21) CREATININE 0.6 L MG/DL (0.7 - 1.5) BUN/CREAT 23 (8 - 27) TOTAL PROTEIN 6.9 G/DL (6.3 - 8.2) ALBUMIN 4.3 G/DL (3.9 - 5.0) GLOBULIN 2.6 GM/DL (2.4 - 3.2) A/G RATIO 1.7 (0.8 - 2.0) CALCIUM 8.5 MG/DL (8.4 - 10.2) TOTAL BILI 1.7 H MG/DL (0.2 - 1.3) ALKALINE PHOS 75 U/L (38 - 126) SGOT/AST 45 H U/L (5 - 40) SGPT/ALT 23 U/L (7 - 56) ANION GAP 12.0 mmol/L (8.0 - 16.0) AGE 39 yrs NON-AA GFR >60 mL/min AFR AMER GFR >60 mL/min Male GFR Interprentation 20-49 yrs >60 mL/min Btyqkk66-60 yrs >56 mL/min Normal 60-69 yrs >49 mL/min Normal 70-79yrs>42 mL/min Normal 80 and above >35 mL/min Normal Female GFRInterpretation 20-39 yrs >60 mL/min Normal 40-49 yrs >58 mL/minNormal 50-59 yrs >51 mL/min Normal 60-69 yrs >45 mL/min Fefiks41-49 yrs >39 mL/min Normal 80 and above >32 mL/min NormalLactic Acid: (LAYNE: 06/09/2020 13:50) ( AkgRcvd 06/09/2020 14:07) Final results Test Result Flag Units (Reference) LACTIC ACID 3.2 H MMOL/L (0.2 - 2.2)Magnesium: (LAYNE: 06/09/2020 13:50) ( MsgRcvd 06/09/2020 14:17) Final results Test Result Flag Units (Reference) MAGNESIUM 2.0 MG/DL (1.7 - 2.2)Lipase: (LAYNE: 06/09/2020 13:50) ( MsgRcvd 06/09/2020 14:18) Final results 5 Clinical Report - Physicians/Mid Levels [facility] Emergency Department [address] [place] [address] Phone #: ext- [phone] 06/09/2020 12:39 Patient: IRENE OCHOA Sex: F : 1980 Age: 39y Test Result Flag Units (Reference) LIPASE 15 U/L (13 - 60) Urinalysis: (LAYNE: 06/09/2020 16:45) ( MsgRcvd 06/09/2020 17:07) Final results Test Result Flag Units (Reference) URINALYSIS URINALYSIS SOURCE R COLOR yellow (NORMAL: Yello CLARITY clear (NORMAL: Clear SPEC GRAVITY 1.010 (1.001 - 1.030 pH 6.5 (5 - 9) GLUCOSE NORM (NORMAL: Negat BILIRUBIN NEG (NORMAL: Negat KETONE 15 A (NORMAL: Negat PROTEIN 30 (NORMAL: Negat NITRITE NEG (NORMAL: Negat BLOOD 50 A (NORMAL: Negat LEUK EST 25 (NORMAL: Negat UROBILINOGEN NOR (less than 1.0 MICROSCOPIC See Below WBC 1 - 3 (NORMAL: NONE RBC 1 - 3 (NORMAL: NONE EPITHELIAL FEW (NORMAL: NONE BACTERIA Trace (NORMAL: NONE.PROGRESS AND PROCEDURESCourse of Care: 14:44 Jun 09 2020. Awaiting CTAB results. 15:58 Jun 09 2020. Pt noted to be hypertensive 178/107 throughout ED course, given 0.01 mg clonidine PO. 17:04 Jun 09 2020. HTN not improved after 0.01 clonidine, giving pt another dose. Awaiting UA results. 17:23 Jun 09 2020. No improvement after second dose of clonidine, will try 20 mg hydralazine if no improvement will admit for hypertensive urgency. 18:Jun 09 2020. Pt improved to 158/98 after hydralazine, overall feels much improved after IV fluids and zofran in ED.will discharge to home, recommend PCM f/u x 3 days, re-eval for HTN, advised return precautions. Disposition: Discharged ho me in good and improved condition. Discharge decision based on the following: patient's condition is improved; patient is ambulatory; patient is active; patient's pain is controlled; patient's exam is improved; minimally abnormal test results; improving condition on repeat evaluation; social support is adequate; transportation is available; follow-up is available; clinical impression is consistent with outpatient treatment. 6 Clinical Report - Physicians/Mid Levels [facility] Emergency Department [address] [place] [address] Phone #: ext- [phone] 06/09/2020 12:39 Patient: IRENE OCHOA Sex: F : 1980 Age: 39yCLINICAL IMPRESSION Acute viral gastroenteritis with volume depletion and dehydration. Acute urinary tract infection with cystitis and hematuria. Not associated with indwelling catheter or obstruction. Hypertension.INSTRUCTIONS No strenuous activity until better. Rest at home for two days. Drink plenty of fluids for the next 48 hours as needed. Avoid alcohol and NSAIDS. NSAIDS include aspirin, ibuprofen (Advil) and naproxen (Aleve). Avoid fatty, fried/greasy, lactose-containing (such as milk, cheese and ice cream), salty and spicy foods until better. No sexual contact until symptoms resolve. No alcohol. Do not smoke. (continue doxycycline as prescribed.). Warnings: GENERAL WARNINGS: Return or contact your physician immediately if your condition worsens or changes unexpectedly, if not improving as expected, or if other problems arise. SPECIFICALLY, return if you develop pain in the pelvis, back or shoulder, fever, vomiting, the inability to keep fluids down, blood in vomitus, blood in diarrhea, fainting, lightheadedness or vaginal bleeding; or for continued pain in the abdomen. Your Current Medications: Your current home medications have been reviewed. CONTINUE TAKING THE FOLLOWING MEDICATIONS: Doxycycline Oral : 100 mg 2x a day. Synthroid Oral. Follow-up: Follow up with your healthcare provider in three days even if well. Call for the next available appointment. Reason for referral: evaluation. Summary of care provided to patient via paper. Understanding of the discharge instructions verbalized by patient. Expected course of illness, discharge instructions, activity level, prescriptions x1, follow-up appointment and risks and benefits of treatment reviewed with patient and understanding verbalized. Agrees to plan of care.(Electronically signed by LUIS Knox 06/09/2020 18:38) 7Clinical Report - Physicians/Mid Levels [facility] Emergency Department [address] [place] [address] Phone #: ext- [phone] 06/09/2020 12:39 Patient: IRENE OCHOA Sex: F : 1980 Age: 39y Name Value Range Interpretation Code Description Data Luzmaria rce(s) Supporting Document(s) ID Date Data Source [id number] 06/13/2020 03:09:00 PM EST [facility] Name Value Range Interpretation Code Description Data Luzmaria rce(s) Supporting Document(s) CULTURE URINE [facility] _CULTURE URINE_$$[id number]$$[id number]$$[id number]$$[id number]$$[id number]$$[id number]$$726624$$436783$$408368$$ 240108$$644724$$212852$$055841$$527813$$054290$$614667$$352287$$863245$$165886$$ 462295$$130423$$184161$$985934$$432845$$805422$$[id number]$$[id number] -- Continued on next page --Patient: DON BONILLA Order: [id number] Page 2Culture: CULTURE URINE Status: Final ==== -- Continued on next page --Patient: DON BONILLA Order: [id number] Page 2Culture: CULTURE URINE Status: Prelim =====$$[id number] DATE/TIME: 06/13/2020 11:06Culture: CULTURE URINE Status: FinalIsolate 1 Klebsiella pneumoniae Flag: A . . . . . . .5Greater than 100,000 colony forming units per mLCefazolin with an ANSHU <=16 predicts susceptibility to the oral agentscefaclor, cefdinir, cefpodoxime, cefprozil, cefuroxime, cephalexin,and loracarbef when used for therapy of uncomplicated urinary tractinfections due to E. coli, Klebsiella pneumoniae, and Proteusmirabilis. Previous result entered on 06/12/2020 01:49 ET Gram negative rodsUrine Culture,Comprehensive: Z2Elgklbhftb pneumoniae Flag: APatient: DON BONILLA Order: [id number] Page 3Culture: CULTURE URINE Status: Final ISOLATE 1 Klebsiella pneumoniae Isolate 1Antibiotic ANSHU IntUnits ug/mL A moxicillin/Clavulanic Acid S S . . . . . .20-8Ampicillin R R . . . . . .28-1Cefazolin S S . . . . . .76-0Cefepime S S . . . . . .6644-9Ceftriaxone S S . . . . . .141-2Cefuroxime S S . . . . . .145-3Ciprofloxacin S S . . . . . .185- 9Ertapenem S S . . . . . .97441-7Tgjtqshcam S S . . . . . .267-5Imipenem S S . . . . . .279-0Levofloxacin S S . . . . . .78233-0Hysfspssm S S . . . . . .6652- 2Nitrofurantoin R R . . . . . .363-2Piperacillin/Tazobactam I I . . . . . .412-7Tetracycline R R . . . . . .496-0Tobramycin S S . . . . . .508-2Trimethoprim/Sulfa R R . . . . . .516-5P1 Test perfo rmed by: Claudine Gonzales [facility] #: [id number] [address] [place] [address] [id number] [facility] [id number] Director : Sky Macedo MD NPI #:Physician Aide : 06/12/[email or web address] REF 06/13/[email or web address].SENT REF ID Date Data Source [id number] 06/09/2020 05:07:00 PM EST [facility] Name Value Range Interpretation Code Description Data Luzmaria rce(s) Supporting Document(s) URINALYSIS [facility] URINALYSIS SOURCE R [facility] COLOR yellow NORMAL: Yellow [facility] CLARITY clear NORMAL: Clear [facility] Specific gravity of Urine by Test strip 1.010 1.001 - 1.030 [facility] pH 6.5 5 - 9 [facility] Glucose [Mass/volume] in Urine by Test strip NORM NORMAL: Negat [facility] Bilirubin.total [Presence] in Urine by Test strip NEG NORMAL: Negative [facility] Ketones [Presence] in Urine by Test strip 15 NORMAL: Negative [facility] Protein [Mass/volume] in Urine by Test strip 30 NORMAL: Negat [facility] Nitrite [Presence] in Urine by Test strip NEG NORMAL: Negative [facility] BLOOD 50 NORMAL: Negative [facility] Leukocyte esterase [Presence] in Urine by Test strip 25 GENEVIEVE L: Negative [facility] Urobilinogen [Mass/volume] in Urine by Test strip NOR less alistair n 1.0 mg/dL [facility] MICROSCOPIC See Below [facility] ital WBC 1 - 3 NORMAL: NONE SEEN [facility] Erythrocytes [#/volume] in Urine by Test strip 1 - 3 NORMAL: NON E SEEN [facility] EPITHELIAL FEW NORMAL: NONE SEEN [facility] Bacteria [Presence] in Urine sediment by Light microscopy Tr sujata NORMAL: NONE SEEN [facility] ID Date Data Source [id number] 06/11/2020 08:12:00 AM [facility] Name Value Range Interpretation Code Description Data Luzmaria rce(s) Supporting Document(s) Cortisol [Mass/volume] in Serum or Plasma 36.2 ug/dL [facility] C ortisol AM 6.2 - 19.4 Cortisol PM 2.3 - 11.9 ID Date Data Source [id number] 06/09/2020 02:17:00 PM EST [facility] Name Value Range Interpretation Code Description Data Luzmaria rce(s) Supporting Document(s) COMPREHENSIVE METABOLIC PANEL [facility] COMPREHENSIVE METABOLIC PANEL Sodium [Moles/volume] in Serum or Plasma 139 mEq/L 134 - 153 [facility] Potassium [Moles/volume] in Serum or Plasma 3.5 mEq/L 3.6 - 5.0 L [facility] Chloride [Moles/volume] in Serum or Plasma 103 mEq/L 98 - 107 [facility] Carbon dioxide, total [Moles/volume] in Serum or Plasma 24 MEQ/L 22 - 30 [facility] Glucose [Mass/volume] in Serum or Plasma 112 MG/DL 65 - 110 H [facility] BUN 14 MG/DL 7 - 21 [facility] Creatinine [Mass/volume] in Serum or Plasma 0.6 MG/DL 0.7 - 1.5 L [facility] BUN/CREAT 23 8 - 27 [facility] Protein [Mass/volume] in Serum or Plasma 6.9 G/DL 6.3 - 8.2 [facility] Albumin [Mass/volume] in Serum or Plasma 4.3 G/DL 3.9 - 5.0 [facility] Globulin [Mass/volume] in Serum by calculation 2.6 GM/DL 2.4 - 3.2 [facility] A/G RATIO 1.7 0.8 - 2.0 [facility] Calcium [Mass/volume] in Serum or Plasma 8.5 MG/DL 8.4 - 10.2 [facility] Bilirubin.total [Mass/volume] in Serum or Plasma 1.7 MG/DL 0.2 - 1.3 H [facility] Alkaline phosphatase [Enzymatic activity/volume] in Serum or Plasma 75 U/L 38 - 126 [facility] Aspartate aminotransferase [Enzymatic activity/volume] in Serum or Plasma 45 U/L 5 - 40 H [facility] Alanine aminotransferase [Enzymatic activity/volume] in Seru m or Plasma 23 U/L 7 - 56 [facility] Anion gap 3 in Serum or Plasma 12.0 mmol/L 8.0 - 16.0 [facility] AGE 39 [address] [facility] NON-AA GFR >60 mL/min [facility] ital AFR AMER GFR >60 mL/min [facility] spital Male GFR In terprentation 20-49 yrs >60 mL/min Normal 50-59 yrs >56 mL/min Normal 60-69 yrs >49 mL/min Normal 70-79yrs >42 mL/min Normal 80 and above >35 mL/min Normal Female GFR Interpretation 20-39 yrs >60 mL/min Normal 40-49 yrs >58 mL/min Normal 50-59 yrs >51 mL/min Normal 60-69 yrs >45 mL/min Normal 70-79 yrs >39 mL/min Normal 80 and above >32 mL/min Normal ID Date Data Source [id number] 06/09/2020 02:17:00 PM [facility] Value Range Interpretation Code Description Data Luzmaria rce(s) Supporting Document(s) Lipase [Enzymatic activity/volume] in Serum or Plasma 15 U/L 13 - 60 [facility] ID Date Data Source [id number] 06/09/2020 02:17:00 PM [facility] Value Range Interpretation Code Description Data Luzmaria rce(s) Supporting Document(s) Magnesium [Mass/volume] in Serum or Plasma 2.0 MG/DL 1.7 - 2.2 [facility] ID Date Data Source [id number] 06/09/2020 02:15:00 PM [facility] Value Range Interpretation Code Description Data Luzmaria rce(s) Supporting Document(s) TROPONIN T <0.01 NG/ML 0.00 - 0.10 [facility] ospital TROPONIN T0.1 ng/ml Recommended as the c linical threshold value forTroponin T. ID Date Data Source [id number] 06/09/2020 02:08:00 PM [facility] Value Range Interpretation Code Description Data Luzmaria rce(s) Supporting Document(s) HCG SERUM QUAL NEGATIVE NORMAL: NEGATIVE [facility] HCG SERUM QL REENTER NEGATIVE NORMAL: NEGATIVE [facility] { KIT LOT # [id number] ){ KIT EXP DATE 04.08.21 ){ PROCEDURAL CONTROL VALID ) ID Date Data Source [id number] 06/09/2020 02:07:00 PM [facility] Value Range Interpretation Code Description Data Luzmaria rce(s) Supporting Document(s) Lactate [Moles/volume] in Serum or Plasma 3.2 MMOL/L 0.2 - 2.2 H [facility] ID Date Data Source [id number] 06/09/2020 02:02:00 PM [facility] Value Range Interpretation Code Description Data Luzmaria rce(s) Supporting Document(s) CBC W/AUTOMATED DIFF [facility] COMPLETE BLOOD COUNT Leukocytes [#/volume] in Blood by Automated count 4.3 10^3/uL 4.2 - 1 1.0 [facility] Erythrocytes [#/volume] in Blood by Automated count 4.80 10^6/uL 4. 20 - 5.40 [facility] Hemoglobin [Mass/volume] in Blood 16.2 g/dL 12.0 - 16.0 H [facility] Hematocrit [Volume Fraction] of Blood by Automated count 45.9 % 3 7.0 - 47.0 [facility] Erythrocyte mean corpuscular volume [Entitic volume] by Auto mated count 95.6 fL 81.0 - 101 [facility] Erythrocyte mean corpuscular hemoglobin [Entitic mass] by Automated count 33.8 pg 27.0 - 34.0 [facility] Erythrocyte mean corpuscular hemoglobin concentration [Mass/volume] by Automated count 35.3 g/dL 31.0 - 36.0 [facility] Erythrocyte distribution width [Ratio] by Automated count 12.7 % 11.5 - 14.5 [facility] Platelets [#/volume] in Blood by Automated count 96 10^3/uL 150 - 450 L [facility] Platelet mean volume [Entitic volume] in Blood by Automated count 10.5 fL 7.4 - 10.4 H [facility] Neutrophils/100 leukocytes in Blood by Automated count 64.3 % 37. 0 - 80.0 [facility] Lymphocytes/100 leukocytes in Blood by Manual count 25.6 % 25.0 - 40.0 [facility] Monocytes/100 leukocytes in Blood by Automated count 8.7 % 3.0 - 8.0 H [facility] Eosinophils/100 leukocytes in Blood by Automated count 0.2 % 0.0 - 7.0 [facility] Basophils/100 leukocytes in Blood by Automated count 0.5 % 0.0 - 2.5 [facility] %IG 0.7 % 0.0 - 0.0 [facility] %NR[facility] 0.0 % 0.0 - 0.0 [facility] al Neutrophils [#/volume] in Blood by Automated count 2.73 10^3/uL 2.00 - 6.90 [facility] Lymphocytes [#/volume] in Blood by Automated count 1.09 10^3/uL 0.60 - 3.40 [facility] Monocytes [#/volume] in Blood by Automated count 0.37 10^3/uL 0.00 - 0.90 [facility] Eosinophils [#/volume] in Blood by Automated count 0.01 10^3/uL 0.00 - 0.70 [facility] Basophils [#/volume] in Blood by Automated count 0.02 10^3/uL 0.00 - 0.20 [facility] #IG 0.03 10^3/uL 0.00 - 0.10 [facility] ospital #NRBC 0.00 10^3/uL 0.00 - 0.00 [facility] MANUAL DIFF NOT INDICATED [facility] RBC MORPH NOT INDICATED [facility] spital ID Date Data Source [id number] 06/16/2020 02:12:00 PM EST [facility] Name Value Range Interpretation Code Description Data Luzmaria rce(s) Supporting Document(s) Urine Culture [facility] ospital ID Date Data Source [id number] 06/16/2020 02:12:00 PM EST [facility] Name Value Range Interpretation Code Description Data Luzmaria rce(s) Supporting Document(s) Amoxicillin/Clavulanic Acid Susc eptible. Indicates for microbiology susceptibilities only. [facility] Cefazolin Susceptible. Indicates for microbiol ogy susceptibilities only. [facility] Cefepime Susceptible. Indicates for microbiol ogy susceptibilities only. [facility] Ceftriaxone Susceptible. Indicates for m icrobiology susceptibilities only. [facility] Ciprofloxacin Susceptible. Ind icates for microbiology susceptibilities only. [facility] Ertapenem Susceptible. Indicates for microbiol ogy susceptibilities only. [facility] Gentamicin Susceptible. Indicates for microbiol ogy susceptibilities only. [facility] Imipenem Susceptible. Indicates for microbiol ogy susceptibilities only. [facility] Meropenem Susceptible. Indicates for microbiol ogy susceptibilities only. [facility] Levofloxacin Susceptible. Indicates for m icrobiology susceptibilities only. [facility] Nitrofurantoin 128 Results entered -- not verified [facility] Pipercillin/Tazobactam 8 Susceptib le. Indicates for microbiology susceptibilities only. [facility] Trimeth/Sulfamethoxazole Suscept ible. Indicates for microbiology susceptibilities only. [facility] ID Date Data Source [id number] 05/16/2020 08:39:00 AM EST [facility] spital QUANTITY: >100,000/mL {KLEBSIELLA P NEUMONIAE} [facility]UM[facility] Name Value Range Interpretation Code Description Data [facility] rce(s) Supporting Document(s) ID Date Data Source [id number] 05/16/2020 08:39:00 AM EST [facility] spital QUANTITY: >100,000/mL {KLEBSIELLA P NEUMONIAE} [facility]IE[facility] PNEUMONIAES[facility] Name Value Range Interpretation Code Description Data [facility] rce(s) Supporting Document(s) Amoxicillin/Clavulanic Acid Susc eptible. Indicates for microbiology susceptibilities only. [facility] Cefazolin Susceptible. Indicates for microbiol ogy susceptibilities only. [facility] Cefepime Susceptible. Indicates for microbiol ogy susceptibilities only. [facility] - [facility] Ceftriaxone Susceptible. Indicates for m icrobiology susceptibilities only. [facility] Ciprofloxacin Susceptible. Ind icates for microbiology susceptibilities only. [facility] Ertapenem Susceptible. Indicates for microbiol ogy susceptibilities only. [facility] Gentamicin Susceptible. Indicates for microbiol ogy susceptibilities only. [facility] Imipenem Susceptible. Indicates for microbiol ogy susceptibilities only. [facility] Meropenem Susceptible. Indicates for microbiol ogy susceptibilities only. [facility] Levofloxacin Susceptible. Indicates for m icrobiology susceptibilities only. [facility] Nitrofurantoin 128 Results entered -- not verified [facility] Pipercillin/Tazobactam 8 Susceptib le. Indicates for microbiology susceptibilities only. [facility] Trimeth/Sulfamethoxazole Suscept ible. Indicates for microbiology susceptibilities only. [facility] ID Date Data Source [id number] 08/19/2020 03:10:00 PM EST [facility] Name Value Range Interpretation Code Description Data Luzmaria rce(s) Supporting Document(s) Thyroglobulin Antibody result <4.0 Normal (applies t o non-numeric results) [facility] ADDITIONAL INFORMATIO N The thyroglobulin antibody testing method is an immunoenzymatic assay manufactured by [employer]. and performed on the [employer] DXI 800. Values obtained from different assay methods or kits may be different and cannot be used interchangeably. The results cannot be interpreted as absolute evidence for the presence or absence of malignant disease. Test Performed by: [place] [address] Physician Aide: Vicente Suárez M.D. Ph.D.; CLIA# [id number] ID Date Data Source [id number] 08/19/2020 03:09:00 PM [facility] Value Range Interpretation Code Description Data Luzmaria rce(s) Supporting Document(s) Thyroperoxidase Ab Normal (applies to non-numer ic results) [facility] Test performed [place] [address] ID Date Data Source [id number] 08/19/2020 02:52:00 PM [facility] Value Range Interpretation Code Description Data Luzmaria rce(s) Supporting Document(s) Thyroperoxidase Ab Normal (applies to non-numer ic results) [facility] Test performed or referred by The [address] [address] ID Date Data Source [id number] 08/19/2020 02:52:00 PM [facility] Value Range Interpretation Code Description Data Luzmaria rce(s) Supporting Document(s) Thyroglobulin Antibody result <4.0 Normal (applies t o non-numeric results) [facility] ADDITIONAL INFORMATIO N The thyroglobulin antibody testing method is an immunoenzymatic assay manufactured by [employer] and performed on the [employer] DXI 800. Values obtained from different assay methods or kits may be different and cannot be used interchangeably. The results cannot be interpreted as absolute evidence for the presence or absence of malignant disease. Test Performed by: [facility] [address] [place] [address] Physician Aide: Vicente Suárez M.D. Ph.D.; CLIA# [id number] ID Date Data Source [id number] 06/16/2020 02:12:00 PM EST [facility] Name Value Range Interpretation Code Description Data Luzmaria rce(s) Supporting Document(s) Creatinine,Urine Normal (applies to non-numeric results) [facility] Interpret with care as there is no estab lished reference range associated with this assay's methodology that pertains to this particular sex and/or age. Microalbumin,Urine <1.7 Normal (applies to non-numer ic results) [facility] Albumin/Creatinine Ratio,Urine Normal (applies to non-numeric results) [facility] Test Performed By: [facility] [address] [place] [address] Director: Modesto Joshi MD Reference Ranges for Microalbumin,spot: Normal <30 ug/mg creatinine Microalbuminuria 30-300 ug/mg creatinine Clinical Albuminuria >300 ug/mg creatinine ID Date Data Source [id number] 06/16/2020 02:12:00 PM EST [facility] Name Value Range Interpretation Code Description Data Luzmaria rce(s) Supporting Document(s) T3 (Tri-Iodothyronine) 60.0-181.0 Normal (applies to non-n umeric results) [facility] Test Performed By: [facility] [address] [place] [address] Director: Modesto Joshi MD ID Date Data Source [id number] 06/16/2020 02:12:00 PM EST [facility] Name Value Range Interpretation Code Description Data Luzmaria rce(s) Supporting Document(s) CPK 59 U/L 26-192 Normal (applies to non-numeric resul ts) [facility] Test Performed By: [facility] [address] [place] [address] Director: Modesto Joshi MD ID Date Data Source [id number] 06/16/2020 02:12:00 PM EST [facility] Name Value Range Interpretation Code Description Data Luzmaria rce(s) Supporting Document(s) T4 (Thyroxine) 4.8-13.9 Normal (applies to non-numeric r esults) [facility] Test Performed By: [facility] [address] [place] [address] Director: Modesto Joshi MD ID Date Data Source [id number] 06/16/2020 02:12:00 PM EST [facility] Name Value Range Interpretation Code Description Data Luzmaria rce(s) Supporting Document(s) Free T3 2.18-3.98 Normal (applies to non-numeric resul ts) [facility] Test Performed By: [facility] [address] [place] [address] Director: Modesto Joshi MD ID Date Data Source [id number] 05/15/2020 04:42:00 PM [facility] MB if CPK is elevated? Y MB if CPK is elevated? Y MB if CPK is elevated? Y Name Value Range Interpretation Code Description Data Luzmaria rce(s) Supporting Document(s) CPK result 59 U/L 26-192 Normal (applies to non-numeric resul ts) [facility] Test Performed By: [facility] [address] [place] [address] Director: Modesto Joshi MD ID Date Data Source [id number] 05/15/2020 04:42:00 PM [facility] MB if CPK is elevated? Y MB if CPK is elevated? Y MB if CPK is elevated? Y Name Value Range Interpretation Code Description Data Luzmaria rce(s) Supporting Document(s) Free T3 result 2.18-3.98 Normal (applies to non-numeric r esults) [facility] Test Performed By: [facility] [address] [place] [address] Director: Modesto Joshi MD T3 result 60.0-181.0 Normal (applies to non-numeric resul ts) [facility] Test Performed By: [facility] [address] [place] [address] Director: Modesto Joshi MD ID Date Data Source [id number] 05/15/2020 04:42:00 PM EST [facility] MB if CPK is elevated? Y MB if CPK is elevated? Y MB if CPK is elevated? Y Name Value Range Interpretation Code Description Data Luzmaria rce(s) Supporting Document(s) T4 result 4.8-13.9 Normal (applies to non-numeric resul ts) [facility] Test Performed By: [facility] [address] [place] [address] Director: Modesto Joshi MD ID Date Data Source [id number] 05/15/2020 07:09:00 AM [facility] Name Value Range Interpretation Code Description Data Luzmaria rce(s) Supporting Document(s) [facility] Urine Creatinine result Normal (applies t o non-numeric results) [facility] Interpret with care as there is no estab lished reference range associated with this assay's methodology that pertains to this particular sex and/or age. [facility] Microalbumin,Ur result <1.7 Normal (applies to non-numeric results) [facility] Alb/Cre Ratio,Ur result Normal (applies t o non-numeric results) [facility] Test Performed By: [facility] [address] [place] [address] Director: Modesto Joshi MD Reference Ranges for Microalbumin,spot: Normal <30 ug/mg creatinine Microalbuminuria 30-300 ug/mg creatinine Clinical Albuminuria >300 ug/mg creatinine ID Date Data Source [id number] 05/14/2020 04:11:00 PM [facility] Name Value Range Interpretation Code Description Data Luzmaria rce(s) Supporting Document(s) White Blood Count 3.5-10.5 Normal (applies to non-numeri c results) [facility] Red Blood Count 3.90-5.00 Normal (applies to non-numeric results) [facility] Hemoglobin 12.0-15.5 Normal (applies to non-numeric resul ts) [facility] Hematocrit 34.9-44.5 Normal (applies to non-numeric resul ts) [facility] Mean Corpuscular Volume 81.2-95.1 Above high normal [facility] Mean Corpuscular Hgb 25.6-32.2 Above high normal [facility] Mean Corpuscular Hgb Conc 32.0-36.0 Normal (applies to no n-numeric results) [facility] Red Cell Distribution Width 11.9-15.5 Normal (appli es to non-numeric results) [facility] Platelet Count 71 x10 3/uL 150-450 Below low normal [facility] Mean Platelet Volume 9.4-12.4 Normal (applies to non-num dc results) [facility] Neutrophils% (Auto) 31.0-71.0 Normal (applies to non-nume juliette results) [facility] Lymphocytes% (Auto) 20.0-55.0 Normal (applies to non-nume juliette results) [facility] Monocytes% (Auto) 4.0-12.0 Normal (applies to non-numeri c results) [facility] Eosinophils% (Auto) 1.0-8.0 Below low normal [facility] Basophils% (Auto) 0.0-2.0 Normal (applies to non-numeri c results) [facility] Immature Granulocytes% (Auto) 0.0-2.0 Normal (ecd lies to non-numeric results) [facility] Neutrophils# (Auto) 1.50-6.20 Normal (applies to non-nume juliette results) [facility] Lymphocytes# (Auto) 1.20-4.00 Normal (applies to non-nume juliette results) [facility] Monocytes# (Auto) 0.00-0.90 Normal (applies to non-numeri c results) [facility] Eosinophils# (Auto) 0.00-0.50 Normal (applies to non-nume juliette results) [facility] Basophils# (Auto) 0.00-0.20 Normal (applies to non-numeri c results) [facility] Immature Granulocytes# (Auto) 0.00-7.00 No rmal (applies to non-numeric results) [facility] Slide Reviewed By Normal (applies to non-numeri c results) [facility] Slide has been reviewed and findings con firmed by a technologist/factory maintenance technician. ID Date Data Source [id number] 05/14/2020 03:34:00 PM EST [facility] C&S IF INDICATED Name Value Range Interpretation Code Description Data Luzmaria rce(s) Supporting Document(s) Color,Urine Colorl-Dk Y Normal (applies to non-numeric res ults) [facility] Clarity,Urine Clear Normal (applies to non-numeric re sults) [facility] Specific [place],Urine 1.005-1.030 Normal (applies to non- numeric results) [facility] pH,Urine 5.0-8.0 Normal (applies to non-numeric resul ts) [facility] Protein,Urine Negative Normal (applies to non-numeric re sults) [facility] Glucose,Urine Negative Normal (applies to non-numeric re sults) [facility] Ketones,Urine Negative Normal (applies to non-numeric re sults) [facility] Blood,[facility] Negative [facility] Negative Normal (applies to non-numeric results) [facility] Urobilinogen,Urine 0.2-1.0 Normal (applies to non-numer ic results) [facility] Leukocyte Esterase,Urine Negative Normal (applies to non -numeric results) [facility] Nitrite,Urine Negative Normal (applies to non-numeric re sults) [facility] RBC,Urine None Seen [facility] WBC,Urine None Seen [facility] Casts,Urine None Seen Normal (applies to non-numeric resu lts) [facility] Squamous Cells,Urine None Seen [facility] Bacteria,Urine None Seen [facility] ID Date Data Source [id number] 05/14/2020 02:56:00 PM EST [facility] Name Value Range Interpretation Code Description Data Luzmaria rce(s) Supporting Document(s) Sodium 139 mmol/L 136-145 Normal (applies to non-numeric resul ts) [facility] Potassium 3.5-5.1 Below low normal [facility] Chloride 101 mmol/L 98-107 Normal (applies to non-numeric resul ts) [facility] Carbon Dioxide CO2 21-32 Normal (applies to non-numer ic results) [facility] Anion Gap 5.0-16.0 Normal (applies to non-numeric resul ts) [facility] BUN 13 mg/dL 7-18 Normal (applies to non-numeric results) [facility] Creatinine,Serum 0.7-1.2 Normal (applies to non-numeric results) [facility] GFR >60 Normal (applies to non-numeric results) [facility] Glucose Level 82 mg/dL 60-99 Normal (applies to non-numeric re sults) [facility] Reference range is only applicable when patient is fasting Note the following drug interference: Sulfasalazine Sulfapyridine Can see falsely depressed Can see falsely elevated result with up to 17% results with up to 11% decrease in measurement increase in measurement Recommend patients be collected for this test prior to administration of either drug. Calcium 8.5-10.1 Below low normal [facility] Bilirubin,Total 0.1-1.9 Normal (applies to non-numeric results) [facility] SGOT(AST) 33 U/L 15-37 Normal (applies to non-numeric resul ts) [facility] Note the following drug interference: Sulfasalazine Sulfapyridine Can see falsely depressed Can see falsely elevated result with up to 10% results with up to 10% decrease in measurement increase in measurement Recommend patients be collected for this test prior to administration of either drug. SGPT(ALT) 37 U/L 12-78 Normal (applies to non-numeric resul ts) [facility] Note the following drug interference: Sulfasalazine Sulfapyridine Can see falsely depressed Can see falsely elevated result with up to 29% results with up to 10% decrease in measurement increase in measurement Recommend patients be collected for this test prior to administration of either drug. Alkaline Phosphatase 67 U/L 38-126 Normal (applies to non-num dc results) [facility] can increase Alkaline Phosp le vels up to 2 times the normal adult value. Normal values for children and adolescents are 2 to 3 times the normal adult value. Total Protein 6.0-8.2 Normal (applies to non-numeric re sults) [facility] Albumin Level 3.4-5.0 Normal (applies to non-numeric re sults) [facility] ID Date Data Source [id number] 05/14/2020 02:56:00 PM [facility] Name Value Range Interpretation Code Description Data Luzmaria rce(s) Supporting Document(s) Triglycerides 252 mg/dL <150 Above high normal [facility] Cholesterol 183 mg/dL 100-200 Normal (applies to non-numeric resu lts) [facility] LDL Cholesterol Calculated 71 0-130 Normal (applies to n on-numeric results) [facility] HDL Cholesterol 62 mg/dL 40-60 Above high normal [facility] Cholesterol/HDL Ratio 3.6-6.7 Below low normal [facility] ID Date Data Source [id number] 05/14/2020 02:56:00 PM [facility] Name Value Range Interpretation Code Description Data Luzmaria rce(s) Supporting Document(s) Free T4 (Free Thyroxine) 0.76-1.46 Normal (applies to non -numeric results) [facility] ID Date Data Source [id number] 05/14/2020 02:56:00 PM [facility] Name Value Range Interpretation Code Description Data Luzmaria rce(s) Supporting Document(s) Thyroid Stimulate Hormone TSH 0.358-3.74 No rmal (applies to non-numeric results) [facility] ID Date Data Source [id number] 05/21/2020 08:39:00 AM [facility] Imaging Services Department Imaging Report [address], [place] [address] %(RAD)RES..mtdd.print.filter("line") Name: IRENE ZAVALETA : 1980 Age/Sex: 39F Ordering Provider: LUIS Duvall Med Rec #: [id number] Reg Status: DEP REF Room #: Date of Service: 05/14/20 Report Number: [id number] cc:LUIS Duvall Send Report To: [id number] XRP/XR Chest 2 View [Pa & Lat] Reason for exam: HTN FINDINGS: Lungs clear. Heart and mediastinum normal with no acute disease. IMPRESSION: No acute disease identified. 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: [id number] Name Value Range Interpretation Code Description Data Luzmaria rce(s) Supporting Document(s) ID Date Data Source [id number] 05/14/2020 11:37:00 AM EST [facility] ([facility]) Name Value Range Interpretation Code Description Data Luzmaria rce(s) Supporting Document(s) Thyroid Stimulating Hormone 1.494 ME [facility] ([facility]) Creatine kinase [Enzymatic activity/volume] in Serum or Plasma 59 41270 [facility] ([facility]) ID Date Data Source [id number] 05/14/2020 11:37:00 AM EST [facility] ([facility]) Name Value Range Interpretation Code Description Data Luzmaria rce(s) Supporting Document(s) HDL 62 40-60 [facility] Triglycerides 252 [facility] ([facility]) Cholesterol 183 120-200 [facility] ([facility]) Chol/HDL Ratio 3.0 [facility] ([facility]) Cholesterol in LDL [Mass/volume] in Serum or Plasma by calculation 71 [facility] ([facility]) ID Date Data Source [id number] 05/14/2020 11:37:00 AM EST [facility] ([facility] Name Value Range Interpretation Code Description Data Luzmaria rce(s) Supporting Document(s) Albumin [Mass/volume] in Serum or Plasma 3.9 [facility] ([facility]) Alanine aminotransferase [Enzymatic activity/volume] in Serum or Pl asma 37 [facility] ([facility]) Carbon dioxide, total [Moles/volume] in Serum or Plasma 26.3 [facility] ([facility]) Chloride [Moles/volume] in Serum or Plasma 101 [facility] ([facility]) Calcium [Mass/volume] in Serum or Plasma 8.0 [facility] ([facility]) Alkaline phosphatase [Enzymatic activity/volume] in Serum or Plasma 6 7 [facility] ([facility]) Protein [Mass/volume] in Serum or Plasma 7.1 [facility] ([facility]) Potassium [Moles/volume] in Serum or Plasma 3.1 [facility] ([facility]) Aspartate aminotransferase [Enzymatic activity/volume] in Serum or Plasma 33 [facility] ([facility]) Sodium 139 [facility] ([facility] Glucose 82 70-100 [facility] ([facility] Urea nitrogen [Mass/volume] in Serum or Plasma 13 [facility] ([facility]) Creatinine For GFR 0.7 [facility] ([facility]) ID Date Data Source [id number] 05/14/2020 11:37:00 AM EST [facility] ([facility]) Name Value Range Interpretation Code Description Data Luzmaria rce(s) Supporting Document(s) Red Blood Count 4.29 4.70-6.20 [facility] ([facility]) White Blood Count 5.7 4.3-10.9 [facility] ([facility]) Platelets 71 130-400 [facility] ([facility] Hemoglobin 14.6 13.0-17.0 [facility] ([facility]) Hematocrit 42.1 39.0-50.0 [facility] ([facility]) ID Date Data Source [id number] 04/30/2020 12:00:00 AM EDT [facility] Name Value Range Interpretation Code Description Data Luzmaria rce(s) Supporting Document(s) SARS coronavirus 2 RNA [facility] This lab was ordered by [facility] and rep orted by [facility]. Procedure Social History Code Duration Value Status Description Data Source(s ) Smoking 10/14/2020 12:00:00 AM EDT Patient has never smoked co mpleted Patient has never smoked [facility] ([facility]) Vital Signs ID Date Data Source UNK Name Value Range Interpretation Code Description Data Source(s) Body mass index (BMI) [Ratio] 32.69 kg/m2 32.69 kg/m2 [facility] Systolic blood pressure 137 mm[Hg] 137 mm[Hg] [facility] Diastolic blood pressure 87 mm[Hg] 87 mm[Hg] [facility] Body surface area Derived from formula 2.16 m2 2.16 m2 [facility] Body height 172.7200 cm 172.7200 cm [facility] Oxygen saturation in Arterial blood by Pulse oximetry 98 % 98 % [facility] Heart rate 98.0 /min 98.0 /min [facility] Respiratory rate 18 /min 18 /min [facility] Body temperature 36.8 [facility] 36.8 [facility] Body weight 97.52 kg 97.52 kg [facility] Body weight 214.00 [lb_av] 214.00 [lb_av] [facility] ([facility]) Body height 68 [in_i] 68 [in_i] [facility] ([facility]) 5'8" Body mass index (BMI) [Ratio] 32.5 kg/m2 32.5 k g/m2 [facility] ([facility]) Systolic blood pressure--sitting 136 mm[Hg] 136 mm[Hg] [facility] ([facility]) Ra, large cuff Diastolic blood pressure--sitting 84 mm[Hg] 84 mm[Hg] [facility] ([facility]) Ra, large cuff Body height 68 [in_i] 68 [in_i] [facility] ([facility]) 5'8" Body mass index (BMI) [Ratio] 30.9 kg/m2 30.9 k g/m2 [facility] ([facility]) Heart rate 89 /min 89 /min [facility] ([facility]) Systolic blood pressure--sitting 100 mm[Hg] 100 mm[Hg] [facility] ([facility]) Omron large cuff, Ra Diastolic blood pressure--sitting 74 mm[Hg] 74 mm[Hg] [facility] ([facility]) Omron large cuff, Ra Body weight 203.00 [lb_av] 203.00 [lb_av] [facility] T ([facility]) Systolic blood pressure 142 mm[Hg] 142 mm[Hg] M [facility] ([facility]) Diastolic blood pressure 78 mm[Hg] 78 mm[Hg] [facility] ([facility]) Body height 58 [in_i] 58 [in_i] [facility] ([facility]) 4'10" Body weight 203.50 [lb_av] 203.50 [lb_av] [facility] T ([facility]) Body mass index (BMI) [Ratio] 42.5 kg/m2 42.5 k g/m[facility] [place] body weight 100 [lb_av] 100 [lb_av] [facility] T ([facility]) Body weight 92.308 kg 92.308 kg [facility] ([facility]) Body surface area Derived from formula 1.83 m2 1.83 m2 [facility] ([facility]) Body weight 197.00 [lb_av] 197.00 [lb_av] [facility] T ([facility]) Body height 68 [in_i] 68 [in_i] [facility] ([facility]) 5'8" Body mass index (BMI) [Ratio] 30.0 kg/m2 30.0 k g/m2 [facility] ([facility]) Heart rate 89 /min 89 /min [facility] ([facility]) Systolic blood pressure--sitting 128 mm[Hg] 128 mm[Hg] [facility] ([facility]) Omron, adult cuff/Ra Diastolic blood pressure--sitting 95 mm[Hg] 95 mm[Hg] [facility] ([facility]) Omron, adult cuff/Ra Patient Treatment Plan of Care Planned Activity Planned Date Details Description Data Source (s) buspirone hydrochloride 7.5 MG Oral Tablet 04/09/2021 12:00:00 AM E [facility] Trazodone Hydrochloride 50 MG Oral Tablet 04/09/2021 12:00:00 AM ED [facility] Levothyroxine Sodium 0.088 MG Oral Tablet 06/03/2020 12:00:00 AM [facility] Levothyroxine Sodium 0.088 MG Oral Tablet 05/10/2019 12:00:00 AM [facility]
[2021-04-29] MEDS ORDERED: ONDANSETRON 4MG/2ML VIAL IV ONE ×2 (12:30→14:05)
[2021-04-29] MEDS ORDERED: NS 1,000 ML IV ONE ×2 (12:30→14:05)
[2021-04-29] MEDS ORDERED: MORPHINE 4 MG/ML 1ML VIAL/SYRINGE (J2270) IV ONE (12:30)
[2021-04-29 12:56] LABS: BASO % 0.2 % (0.0-1.0); EOS % 0.2 % (0.0-3.0); HEMATOCRIT 48.6 % (36.0-47.0); HEMOGLOBIN 17.2 g/dl (12.0-15.5); LYMPH % 8.6 % (24.0-44.0); MEAN CORPUSCULAR HEMOGLOBIN 33.8 pg (27.0-33.0); MEAN CORPUSCULAR HGB CONC 35.4 g/dl (32.0-36.5); MEAN CORPUSCULAR VOLUME 95.5 fl (80.0-96.0); MONO # 0.6 10^3/uL (0.0-0.8); MONO % 5.6 % (2.0-8.0); NEUTROPHILS # 9.6 10^3/uL (1.5-8.5); NEUTROPHILS % 84.7 % (36.0-66.0); RED BLOOD COUNT 5.09 10^6/uL (4.00-5.40); WHITE BLOOD COUNT 11.3 10^3/uL (4.0-10.0)
[2021-04-29 13:00] LABS: PLATELET COUNT, AUTOMATED 66 10^3/uL (150-450)
--- OUTSIDE RECORDS SUMMARY | 2021-04-29 13:19 | CCD ---
Author Author [facility] Organization [facility] Address Unknown Phone Unavailable Care Team Providers Care Internal Audit Manager Name Role Phone Servage, L Roxy CUSTOMER SERVICES MANAGER Unavailable Unavailable Servage, L Roxy CUSTOMER SERVICES MANAGER Unavailable Unavailable Servage, L Roxy CUSTOMER SERVICES MANAGER Unavailable Unavailable Servage, L Roxy CUSTOMER SERVICES MANAGER Unavailable Unavailable Servage, L Roxy CUSTOMER SERVICES MANAGER Unavailable Unavailable Servage, L Roxy CUSTOMER SERVICES MANAGER Unavailable Unavailable Servage, L Roxy CUSTOMER SERVICES MANAGER Unavailable Unavailable Servage, L Roxy CUSTOMER SERVICES MANAGER Unavailable Unavailable Servage, L Roxy CUSTOMER SERVICES MANAGER Unavailable Unavailable Servage, L Roxy CUSTOMER SERVICES MANAGER Unavailable Unavailable Servage, L Roxy CUSTOMER SERVICES MANAGER Unavailable Unavailable Servage, L Roxy CUSTOMER SERVICES MANAGER Unavailable Unavailable Servage, L Roxy CUSTOMER SERVICES MANAGER Unavailable Unavailable Servage, L Roxy CUSTOMER SERVICES MANAGER Unavailable Unavailable Servage, L Roxy CUSTOMER SERVICES MANAGER Unavailable Unavailable Servage, L Roxy CUSTOMER SERVICES MANAGER Unavailable Unavailable Servage, L Roxy CUSTOMER SERVICES MANAGER Unavailable Unavailable Servage, L Roxy CUSTOMER SERVICES MANAGER Unavailable Unavailable Servage, L Roxy CUSTOMER SERVICES MANAGER Unavailable Unavailable Servage, L Roxy CUSTOMER SERVICES MANAGER Unavailable Unavailable Servage, L Roxy CUSTOMER SERVICES MANAGER Unavailable Unavailable Servage, L Roxy CUSTOMER SERVICES MANAGER Unavailable Unavailable Servage, L Roxy CUSTOMER SERVICES MANAGER Unavailable Unavailable Servage, L Roxy CUSTOMER SERVICES MANAGER Unavailable Unavailable Servage, L Roxy CUSTOMER SERVICES MANAGER Unavailable Unavailable Servage, L Roxy CUSTOMER SERVICES MANAGER Unavailable Unavailable Servage, L Roxy CUSTOMER SERVICES MANAGER Unavailable Unavailable Servage, L Roxy CUSTOMER SERVICES MANAGER Unavailable Unavailable Servage, L Roxy CUSTOMER SERVICES MANAGER Unavailable Unavailable Servage, L Roxy CUSTOMER SERVICES MANAGER Unavailable Unavailable Servage, L Roxy CUSTOMER SERVICES MANAGER Unavailable Unavailable Servage, L Roxy CUSTOMER SERVICES MANAGER Unavailable Unavailable Servage, L Roxy CUSTOMER SERVICES MANAGER Unavailable Unavailable Servage, L Roxy CUSTOMER SERVICES MANAGER Unavailable Unavailable Servage, L Roxy CUSTOMER SERVICES MANAGER Unavailable Unavailable Servage, L Roxy CUSTOMER SERVICES MANAGER Unavailable Unavailable Servage, L Roxy CUSTOMER SERVICES MANAGER Unavailable Unavailable Servage, L Roxy CUSTOMER SERVICES MANAGER Unavailable Unavailable Servage, L Roxy CUSTOMER SERVICES MANAGER Unavailable Unavailable Servage, L Roxy CUSTOMER SERVICES MANAGER Unavailable Unavailable Servage, L Roxy CUSTOMER SERVICES MANAGER Unavailable Unavailable Servage, L Roxy CUSTOMER SERVICES MANAGER Unavailable Unavailable Servage, L Roxy CUSTOMER SERVICES MANAGER Unavailable Unavailable Servage, L Roxy CUSTOMER SERVICES MANAGER Unavailable Unavailable Servage, L Roxy CUSTOMER SERVICES MANAGER Unavailable Unavailable Servage, L Roxy CUSTOMER SERVICES MANAGER Unavailable Unavailable Servage, L Roxy CUSTOMER SERVICES MANAGER Unavailable Unavailable Servage, L Roxy CUSTOMER SERVICES MANAGER Unavailable Unavailable Servage, L Roxy CUSTOMER SERVICES MANAGER Unavailable Unavailable Servage, L Roxy CUSTOMER SERVICES MANAGER Unavailable Unavailable Servage, L Roxy CUSTOMER SERVICES MANAGER Unavailable Unavailable Servage, L Roxy CUSTOMER SERVICES MANAGER Unavailable Unavailable Servage, L Roxy CUSTOMER SERVICES MANAGER Unavailable Unavailable Servage, L Roxy CUSTOMER SERVICES MANAGER Unavailable Unavailable Servage, L Roxy CUSTOMER SERVICES MANAGER Unavailable Unavailable Servage, L Roxy CUSTOMER SERVICES MANAGER Unavailable Unavailable Servage, L Roxy CUSTOMER SERVICES MANAGER Unavailable Unavailable Servage, L Roxy CUSTOMER SERVICES MANAGER Unavailable Unavailable Servage, L Roxy CUSTOMER SERVICES MANAGER Unavailable Unavailable Servage, L Roxy CUSTOMER SERVICES MANAGER Unavailable Unavailable Servage, L Roxy CUSTOMER SERVICES MANAGER Unavailable Unavailable Servage, L Roxy CUSTOMER SERVICES MANAGER Unavailable Unavailable Servage, L Roxy CUSTOMER SERVICES MANAGER Unavailable Unavailable Servage, L Roxy CUSTOMER SERVICES MANAGER Unavailable Unavailable Servage, L Roxy CUSTOMER SERVICES MANAGER Unavailable Unavailable Chandni, L Lo PA Unavailable [...] L Lo PA Unavailable Unavailable Chandni, L Ol PA Unavailable Unavailable Chandni, L Lo PA [...] L Lo PA Unavailable Unavailable Chandni, L Ol PA Unavailable Unavailable Chandni, L Lo PA [...] is protected by Article 27-F of the [facility] Public Health law. If you continue you may have access to information: Regarding HIV / AIDS; Provided by facilities licensed or operated by the [facility] Office of Mental Health; or Provided by the [facility] Office for People With Developmental Disabilities. If such information is present, then the following [facility] mandated warning applies: This information has [...] law may result in a fine or long term sentence or both. A general authorization for the release of medical or other information is NOT sufficient authorization for further disc losure. Allergies and Adverse Reactions Type Description Substance Reaction Status Data Source(s ) Environmental Allergy LATEX LATEX [facility] Family History Family Member Name Family Member Gender Family Member Status Date o f Status Description Data Source(s) Unknown Male Problem [facility] ([facility]) Unknown Unknown Problem [facility] ([facility]) mother,mgm Encounters Encounter Providers Location Date Indications Data Source(s ) Outpatient Attender: Lo SMITH Admitter: Lo Tariq PAReferrer: Lo Tariq PAConsultant: Lo SMITH 04/08 02:11:00 PM EDT - 04/08/2021 11:00:00 AM EDT [facility] PATIENT [facility] NEW PATIENT Patient discharged. Outpatient Attender: MARIS SMITH Main Office 04/08/2021 0 8:00:00 AM EDT [facility] ([facility]) Outpatient Attender: Steven MosherAttender: STEVEN MOSHER 07A -XXEGJOSA 01/08/2021 12:00:00 AM [facility] Outpatient Attender: Lo SMITH ED-HCCEDWPCP 01/2021 09:20:00 AM EDT - 01/07/2021 09:21:00 AM [facility] Patient discharged. Outpatient Attender: Lo SMITH -HCCEDWPCP 07/2020 03:30:00 PM EDT - 12/02/2020 03:31:00 PM [facility] Patient discharged. Outpatient Attender: STEVEN MOSHER 11/26/2020 12:00:00 AM [facility] Outpatient Attender: JOSÉ MIGUEL NEGRON MD Main Office 10/14/2020 08:00:00 AM EDT [facility] ([facility]) Outpatient Attender: Lo SMITH -HCCEDWPC 01/2021 04:15:00 PM EDT - 10/08/2020 04:16:00 PM EDT [facility] Patient discharged. Outpatient Attender: Car Smalls/Breanna/Lorenzo/Caity andujar 10/06/2020 01:15:00 PM EDT [facility] ([facility] ) Outpatient Attender: Lo Tariq [place] ED-HCCEDWPC 07:03:00 AM EDT - 2020 07:04:00 AM EDT [facility] Patient discharged. Outpatient Attender: JOSÉ MIGUEL NEGRON MD Main Office 08/01/2020 09:45:00 AM EST [facility] ([facility]) [facility]patient Att[facility]: [facility] 04/2020 01:22:00 PM EST - 06/12/2020 01:23:00 PM EST [facility] Patient discharged. Outpatient Attender: Lo Tariq [facility] 03/2020 07:49:00 AM EST - 06/11/2020 07:50:00 AM [facility] Patient discharged. Emergency Attender: PITA Pearsonsuant: Roxy sanchez CUSTOMER SERVICES MANAGER 06/09/2020 12:49:00 PM EST - 06/09/2020 06:15:00 PM EST [facility] Patient discharged. Outpatient Attender: Lo Tariq [facility] 01/2020 12:41:00 PM EST - 06/09/2020 12:42:00 PM [facility] Patient discharged. Outpatient Attender: Lo Tariq [place] [facility] 10/2019 01:36:00 PM EST - 06/06/2020 01:37:00 PM [facility] Patient discharged. [facility]patient [facility] 03:20:00 PM EST - 05/26/2020 03:21:00 PM [facility] Patient discharged. [facility] 06/2020 07:31:00 AM EST - 05/15/2020 07:32:00 AM EST [facility] Patient discharged. Outpatient Attender: UNKNOWN CPSCAORT-LABEJN 05/14/2020 03:12:00 PM E [facility] Outpatient Attender: Lo SMITH ED-LABGH 05/2020 12:17:00 PM EST - 05/14/2020 12:18:00 PM EST I10 E03.9 [facility] I10 E03.9 Patient discharged. Outpatient Attender: Lo SMITH -HCCEDWPCP 01:47:00 PM EDT - 04/21/2020 01:48:00 PM EDT [facility] Patient discharged. Medications Medication Brand Name Start Date Product Form Dose Route Admi nistrative Instructions Pharmacy Instructions Status Indications Reaction Description Data Source(s) 300 mg 04/20/2021 12:00:00 AM EDT capsule 20 TAKE ONE CAPSULE BY MOUTH EVERY 12 HOURS FOR 10 DAYS TAKE ONE CAPSULE BY MOUTH EVERY 12 HOURS FOR 10 DAYS S OLD: 04/20/2021 [facility] buspirone hydrochloride 7.5 MG Oral Tablet busPIRone H Cl 7.5MG Oral Tablet busPIRone HCl 7.5MG Oral Tablet 04/09/2021 12:00:00 AM EDT 1 TABLET BY MOUTH active <td>busPIRone H Cl 7.5MG Oral Tablet</td><td>04/09/2021</td><td>Unknown</td><td>BY MOUTH</td><td>TWICE A DAY</td><td>1 TABLET</td><td>101305</td><td>RxNorm</td><td>TAKE 1 TABLET BY MOUTH TWICE A DAY NEEDED</td> [facility] 7.5 mg 04/09/2021 12:00:00 AM EDT tablet 60 TAKE ONE TABLET BY MOUTH TWICE A DAY NEEDED TAKE ONE TABLET BY MOUTH TWICE A DAY NEEDED SOLD: 04/09/2021 [facility] Trazodone Hydrochloride 50 MG Oral Table t traZODone hydrochloride 50MG Oral Tablet traZODone hydrochloride 50MG Oral Tablet 04/09/2021 12:00:00 AM EDT 0 TABLET BY MOUTH active <td>traZOD one hydrochloride 50MG Oral Tablet</td><td>04/09/2021</td><td>Unknown</td><td>BY MOUTH</td><td>AT BEDTIME</td><td></td><td>670914</td><td>RxNorm</td><td>TAKE 1-2 TABLET BY MOUTH AT BEDTIME</td> [facility] 50 mg 04/09/2021 12:00:00 AM EDT tablet 60 TAKE 1 TO 2 TABLETS BY MOUTH AT BEDTIME TAKE 1 TO 2 TABLETS BY MOUTH AT BEDTIME SOLD: 04/09/2021 [facility] Lisinopril 20 MG Oral Tablet Lisinopril 04/08/2021 12:00:00 AM EDT ORAL active [facility] ([facility]) 20 mg 04/08/2021 12:00:00 AM EDT tablet 90 TAKE ONE TABLET BY MOUTH EVERY DAY TAKE ONE TABLET BY MOUTH EVERY DAY SOLD: 04/09/2021 [facility] Amlodipine 5 MG Oral Tablet Amlodipine Besylate 04/07/2021 12:00:00 A M EDT ORAL completed [facility] ([facility] Fenofibrate 48 MG Oral Tablet Fenofibrate 04/07/2021 12:00:00 AM EDT ORAL active [facility] ([facility]) 0.5 mg 03/29/2021 12:00:00 AM EDT tablet 60 TAKE ONE TABLET BY MOUTH TWICE A DAY MAXIMUM DAILY DOSE = 2 TAKE ONE TABLET BY MOUTH TWICE A DAY MAX IMUM DAILY DOSE = 2 SOLD: 03/29/2021 [facility] 0.5 mg 02/28/2021 12:00:00 AM [...] ONCE DAILY IMMEDIATELY AFTER DISSOLVING SOLD: 11/13/2020 [facility] 200 mg 11/12/2020 12:00:00 AM EDT [...] MAXIMUM DAILY DOSE = 4 SOLD: 10/22/2020 [facility] Flax Seeds 10/14/2020 12:00:00 AM EDT active [facility] ([facility]) Simethicone 80 MG Chewable Tablet [Mi-Acid Gas Relief] MN-Ac id Gas Relief 10/13/2020 12:00:00 AM EDT ORAL completed [facility] ([facility]) 10 mg 10/13/2020 12:00:00 AM EDT tablet 30 TAKE ONE TABLET BY MOUTH EVERY 6 HOURS NEEDED MAXIMUM DAILY DOSE = 4 TAKE ONE TABLET BY MOUTH EVERY 6 HOURS A S NEEDED MAXIMUM DAILY DOSE = 4 SOLD: 10/13/2020 [facility] Fenofibrate 48 MG Oral Tablet Fenofibrate 10/13/2020 12:00:00 AM EDT ORAL completed [facility] ([facility]) Levothyroxine Sodium 0.075 MG Oral Tablet Levothyroxine Sodi um 10/13/2020 12:00:00 AM EDT ORAL active M [facility]ENT ([facility]) 24 HR Propranolol Hydrochloride 120 MG Extended Releas e Oral Capsule Propranolol HCL ER 10/13/2020 12:00:00 AM EDT ORAL completed [facility] ([facility]) 75 mcg 10/09/2020 12:00:00 AM EDT [...] TWICE A DAY WITH MEALS SOLD: 09/18/2020 [facility] Metronidazole 500 MG Oral Tablet METRONIDAZOLE 09/18/2020 [...] AM EST completed [facility] ([facility]) 24 HR Desvenlafaxine 25 MG Extended Release Oral Table t Desvenlafaxine Succinate ER 08/01/2020 12:00:00 AM EST ORAL completed [facility] ([facility]) doxycycline hyclate 100 MG Oral Tablet Doxycycline Hyclate 0 07/31/2020 12:00:00 AM EST ORAL completed [facility] ([facility]) Levothyroxine Sodium 0.088 MG Oral Tablet Levothyroxine Sodi um 07/31/2020 12:00:00 AM EST ORAL completed [facility] ([facility]) 24 HR Desvenlafaxine 50 MG Extended Release Oral Table t Desvenlafaxine Succinate ER 07/31/2020 12:00:00 AM EST ORAL completed [facility] ([facility]) Spironolactone 25 MG Oral Tablet Spironolactone 07/31/2020 12:00:00 A M EST ORAL active [facility] ([facility] 88 mcg 07/08/2020 12:00:00 AM EST [...] hypothyroidism Take 1 tablet by mouth Daily [facility] Other specified hypothyroidism 88 mcg 06/03/2020 12:00:00 [...] THREE TIMES A DAY NEEDED SOLD: 07/08/2020 [facility] Alprazolam 0.25 MG Oral Tablet ALPRAZOLAM [...] THREE TIMES A DAY NEEDED SOLD: 06/11/2020 [facility] 80 mg 04/21/2020 12:00:00 AM EDT capsule,extended releas e 24 hr 30 TAKE ONE CAPSULE BY MOUTH EVERY DAY TAKE ONE CAPSULE BY MOUTH EVERY DAY SOLD: 04/21/2020 [facility] Alprazolam 0.25 MG Oral Tablet ALPRAZOLAM 04/21/2020 12:00:00 AM EDT tablet 30 TAKE ONE TABLET BY MOUTH TWICE A DAY NEEDED MAXIMUM DAILY DOSE = 2 TAKE ONE TABLET BY MOUTH TWICE A DAY NEEDED MAXIMUM DAILY DOSE = 2 SOLD: 04/21/2020 [facility] 20 mg 04/21/2020 12:00:00 AM EDT tablet 30 TAKE ONE TABLET BY MOUTH EVERY MORNING; START WITH 1/2 TABLET ONCE DAILY AND IF TOLERATED INCREASE TO 1 TABLET AFTER 1-2 WEEKS TAKE ONE TABLET BY MOUTH EVERY MORNING; START WITH 1/2 TABLET ONCE DAILY AND IF TOLERATED INCREASE TO 1 TABLET AFTER 1-2 WEEKS SOLD: 04/21/2020 [facility] 88 mcg 05/10/2019 12:00:00 AM EST tablet 30 TAKE 1 TABLET BY MOUTH DAILY TAKE 1 TABLET BY MOUTH DAILY SOLD: 03/15/2020 [facility] Levothyroxine Sodium 0.088 MG Oral Table t Levothyroxine Sodium 88 MCG Oral Tablet (SYNTHROID, LEVOTHROID) Levothyroxine Sodium 88 MCG Oral Tablet (SYNTHROID, LEVOTHROID) 05/10/2019 12:00:00 AM EST 88 ug Oral active Other specified hypothyroidism Take 1 tablet by mouth Daily [facility] Other specified hypothyroidism 88 mcg 05/10/2019 12:00:00 AM EST tablet 30 TAKE 1 TABLET BY MOUTH DAILY TAKE 1 TABLET BY MOUTH DAILY SOLD: 04/20/2020 [facility] Insurance Providers Payer name Policy type / Coverage type Policy ID Covered libertarian ID Covered libertarian's relationship to james Policy James Plan Information BS [place] Trad/[employer] Commercial [id number] Family Dependent [id number] [facility] Trad/MX Commercial [id number] Family Dependent 802 [employer]OM[employer] [id number] SP [id number] [employer] [id number] SP [id number] [employer] [id number] 0 [id number] POM[employer] [id number] Self [id number] R U [id number] Self [id number] 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 [id number] SP [id number] [facility] [id number] SP [id number] [employer] Ppo Commercial [id number] Self [id number] POMCO-O/P [id number] 18 [id number] [employer] Ppo Commercial [id number] Self [id number] [employer] Commercial [id number] Self [employer]OM[employer] PPO P [id number] S [id number] [employer] [id number] SP [id number] [employer] [id number] undefined [id number] UMR [id number] S [id number] UMR -O/P [id number] 18 [id number] [facility] [id number] SP [id number] BS [facility] [id number] [facility] [id number] [facility] Commercial [id number] Self [id number] [facility] Commercial [id number] Self [id number] [facility] Commercial [id number] Self [id number] Problems, Conditions, and Diagnoses Code Display Name Description Problem Type Effective Dates Data Source(s) F411 Generalized anxiety disorder Generalized anxiety disor brandie Diagnosis 04/08/2021 02:11:00 PM EDT [facility] D693 Immune thrombocytopenic purpura Immune thrombocytopeni c purpura Diagnosis 04/08/2021 02:11:00 PM EDT [facility] R609 Edema, unspecified Edema, unspecified Diagnosis 02:11:00 PM EDT [facility] E039 Hypothyroidism, unspecified Hypothyroidism, unspecifie d Diagnosis 04/08/2021 02:11:00 PM EDT [facility] E782 Mixed hyperlipidemia Mixed hyperlipidemia Diagnosis 04/08/2021 02:11:00 PM EDT [facility] I10 Essential (primary) hypertension Essential (primary) h ypertension Diagnosis 04/08/2021 02:11:00 PM EDT [facility] R002 Palpitations Palpitations Diagnosis 04/08/2021 02:11:00 P M EDT [facility] [id number] Latex allergy status Latex allergy status Diagnosis 06/09/2020 12:49:00 PM [facility] Z9049 Acquired absence of other specified part s of digestive tract Acquired absence of other specified parts of digestive tract Diagnosis 12:49:00 PM [facility] E039 Hypothyroidism, unspecified Hypothyroidism, unspecifie d Diagnosis 06/09/2020 12:49:00 PM [facility] I10 Essential (primary) hypertension Essential (primary) h ypertension Diagnosis 06/09/2020 12:49:00 PM [facility] E869 Volume depletion, unspecified Volume depletion, unspec ified Diagnosis 06/09/2020 12:49:00 PM [facility] E860 Dehydration Dehydration Diagnosis 06/09/2020 12:49:00 PM [facility] N3001 Acute cystitis with hematuria Acute cystitis with elena turia Diagnosis 06/09/2020 12:49:00 PM [facility] A084 Viral intestinal infection, unspecified Viral intestinal infection, unspecified Diagnosis 06/09/2020 12:49:00 PM [facility] R1030 Lower abdominal pain, unspecified Lower abdomina l pain, unspecified Diagnosis 06/09/2020 12:49:00 PM [facility] I10 Essential (primary) hypertension ESSENTIAL (PRIMARY) H YPERTENSION Diagnosis [facility], unspecified HYPOTHYROIDISM, UNSPECIFIE D Diagnosis 04/21/2020 [facility] D69.3 Immune thrombocytopenic purpura IMMUNE THROMBOCYTOPENI C PURPURA Diagnosis 04/21/2020 01:47:00 PM [facility] F41.0 Panic disorder [episodic paroxysmal anxi ety] PANIC DISORDER [EPISODIC PAROXYSMAL ANXIETY] Diagnosis 04/21/2020 01:47:00 PM [facility] F41.1 Generalized anxiety disorder GENERALIZED ANXIETY DISOR BRANDIE Diagnosis 04/21/2020 01:47:00 PM [facility] R60.0 Edema Edema Problem 04/08/2021 12:00:00 AM ED T [facility] ([facility]) E78.1 Pure hyperglyceridemia Pure hyperglyceridemia Problem 10/14/2020 12:00:00 AM EDT [facility] ([facility]) [id number] Essential hypertension Essential hypertension Problem 09/29/2020 12:00:00 AM EDT [facility] ([facility] ) E78.5 Hyperlipidemia Hyperlipidemia Problem 08/01/2020 12:00: 00 AM EST [facility] ([facility]) F41.1 Generalized anxiety disorder Generalized anxiety disor brandie Problem 08/01/2020 12:00:00 AM EST [facility] ([facility]) R23.2 Flushing Flushing Problem 08/01/2020 12:00:00 AM ES T [facility] ([facility]) I10 Essential hypertension Essential hypertension Problem 08/01/2020 12:00:00 AM EST [facility] ([facility]) Z71.3 Dietary management surveillance Dietary management anna veillance Problem 08/01/2020 12:00:00 AM EST [facility] ([facility]) E66.09 Obesity Obesity Problem 08/01/2020 12:00:00 AM ES T [facility] ([facility]) R00.2 Palpitations Palpitations Problem 08/01/2020 12:00:00 A M EST [facility] ([facility]) Surgeries/Procedures Procedure Description Date Indications Data Source(s) OFFICE OUTPATIENT VISIT 15 MINUTES 04/08/2021 12:00:00 AM EDT [facility] ([facility]) External ECG Rec>48HR<7D Recording 03/24/2021 12:00:00 AM EDT [facility] [facility]) External ECG Rec>48HR<7D Review & Interpretation 03/24 12:00:00 AM EDT [facility] ([facility]) OFFICE OUTPATIENT VISIT 15 MINUTES 10/14/2020 12:00:00 AM EDT [facility] ([facility]) ECG ROUTINE ECG W/LEAST 12 LDS W/I&R 08/01/2020 12:00: 00 AM EST [facility] ([facility]) [address] X-RAY EXAM CHEST 2 VIEWS 05/14/2020 12:00:00 AM [facility] ECG ROUTINE ECG W/LEAST 12 LDS TRCG ONLY W/O I&R ELECTROCARD IOGRAM TRACING 05/14/2020 12:00:00 AM [facility] THYROGLOBULIN ANTIBODY THYROGLOBULIN ANTIBODY 05/14/2020 12:00:00 A M [facility] MICROSOMAL ANTIBODIES EACH MICROSOMAL ANTIBODY EACH 05/14/2020 1 2:00:00 AM [facility] THYROXINE FREE ASSAY OF FREE THYROXINE 05/14/2020 12:00:00 AM [facility] THYROID STIMULATING HORMONE TSH ASSAY THYROID STIM HORMONE 1 07/14/2019 12:00:00 AM [facility] SUSCEPTIBLTY STDY ANTIMICRBIAL MICRO/AGAR DILUTJ MICROBE NAOMIE CEPTIBLE ANSHU 05/14/2020 12:00:00 AM [facility] URNLS DIP STICK/TABLET REAGENT AUTO MICROSCOPY URINALYSIS AU TO W/SCOPE 05/14/2020 12:00:00 AM [facility] COLLECTION VENOUS BLOOD VENIPUNCTURE ROUTINE VENIPUNCTURE 12:00:00 AM [facility] BLOOD COUNT COMPLETE AUTO&AUTO DIFRNTL WBC COUNT COMPLETE CB C W/AUTO DIFF WBC 05/14/2020 12:00:00 AM [facility] THYROXINE TOTAL ASSAY OF TOTAL THYROXINE 05/14/2020 12:00:00 AM [facility] CREATINE KINASE TOTAL ASSAY OF CK (CPK) 05/14/2020 12:00:00 AM [facility] ALBUMIN URINE MICROALBUMIN QUANTIATIVE UR ALBUMIN QUANTITATI VE 05/14/2020 12:00:00 AM [facility] CREATININE OTHER SOURCE ASSAY OF URINE CREATININE 05/14/2020 12:00: 00 AM [facility] TRIIODOTHYRONINE T3 FREE FREE ASSAY (FT-3) 05/14/2020 12:00:00 AM E [facility] TRIIODOTHYRONINE T3 TOTAL TT3 ASSAY TRIIODOTHYRONINE (T3) 12:00:00 AM [facility] LIPID PANEL LIPID PANEL 05/14/2020 12:00:00 AM [facility] COMPREHENSIVE METABOLIC PANEL COMPREHEN METABOLIC PANEL 05/04 12:00:00 AM [facility] OFFICE OUTPATIENT VISIT 10 MINUTES OFFICE/OUTPATIENT VISIT E ST 04/21/2020 12:00:00 AM T [facility] Results ID Date Data Source 1 04/23/2021 12:00:00 AM EDT [facility] Name Value Range Interpretation Code Description Data Luzmaria rce(s) Supporting Document(s) SARS-CoV2 Rapid PCR Negative [facility] This lab was ordered by [facility] and reported by [facility]. ID Date Data Source [id number] 04/20/2021 12:00:00 AM EDT [facility] Name Value Range Interpretation Code Description Data Luzmaria rce(s) Supporting Document(s) SARS-CoV2 Rapid Antigen Negative [facility] This lab was ordered by [facility] and reported by [facility]. ID Date Data Source [id number] 04/08/2021 09:26:00 AM EDT [facility] ([facility]) Name Value Range Interpretation Code Description Data Luzmaria rce(s) Supporting Document(s) Glucose, Fasting 93 mg/dL 70-100 [facility] ([facility]) Blood Urea Nitrogen 12 mg/dL 7-18 [facility] (Ca [facility]) Creatinine For GFR 0.79 mg/dL 0.55-1.30 [facility] ([facility]) Sodium Level 140 meq/L 136-145 [facility] ([facility]) Potassium Serum 3.7 meq/L 3.5-5.1 [facility] ([facility]io [facility]) Glomerular Filtration Rate Laboratory test result [facility] ([facility]) <content>Units are mL/min/1.73 m2</content>
<content></content>
<content>Chronic Kidney Disease Staging per NKF:</content>
<content></content>
<content>Stage I & II GFR >=60 Normal to Mildly Decreased</content>
<content>Stage III GFR 30-59 Moderately Decreased</content>
<content>Stage IV GFR 15-29 Severely Decreased</content>
<content>Stage V GFR <15 Very Little GFR Left</content>
<content>ESRD GFR <15 on SAFETY ASSOCIATE</content>
<content></content> Anion Gap 10 meq/L 8-16 [facility] ([facility]) Carbon Dioxide Level 23 meq/L 21-32 [facility] (C [facility]) Chloride Level 107 meq/L 98-107 [facility] ([facility]) Calcium Level 8.8 mg/dL 8.5-10.1 [facility] ([facility]) ID Date Data Source [id number] 04/08/2021 09:26:00 AM EDT [facility] ([facility] Name Value Range Interpretation Code Description Data Luzmaria rce(s) Supporting Document(s) Natriuretic peptide.B prohormone N-Terminal [Mass/volu me] in Serum or Plasma 25 pg/mL [facility] ([facility] <content>note:<nlbl:demographic_changed> </content>
<content></content> ID Date Data Source [id number] 01/08/2021 01:27:05 PM EDT [facility] Name Value Range Interpretation Code Description Data Luzmaria rce(s) Supporting Document(s) Progress Note [facility] [id number] lbm [file] [id number] ID Date Data Source [id number] 01/08/2021 01:27:00 PM EDT [facility] Name Value Range Interpretation Code Description Data Luzmaria rce(s) Supporting Document(s) Progress Note [facility] [id number] lbm [file] ID Date Data Source [id number] 09/14/2020 02:48:00 PM EDT [facility] Name Value Range Interpretation Code Description Data Luzmaria rce(s) Supporting Document(s) SARS-CoV-2 (COVID 19) NEGATIVE - SARS-CoV-2 (COVID19) [facility] This lab was ordered by [facility] a nd reported by . ID Date Data Source [id number] 09/08/2020 11:56:00 AM EST [facility] Name Value Range Interpretation Code Description Data Luzmaria rce(s) Supporting Document(s) SARS coronavirus 2 RNA [Presence] in Res piratory specimen by ANTONIO with probe detection NEGATIVE [facility] This lab was ordered by [facility] a nd reported by . ID Date Data Source [id number] 06/13/2020 12:00:00 AM EST [facility] Name Value Range Interpretation Code Description Data Luzmaria rce(s) Supporting Document(s) SARS-CoV2 Rapid Antigen [facility] This lab was ordered by [facility] and reported by [facility]. ID Date Data Source [id number] 06/09/2020 12:49:00 PM [facility] 1 OrderSheet [facility] Emergency Department [address] [place] [address] Phone #: [phone] qtr- [phone] 06/09/2020 12:39 Patient: IRENE OCHOA Sex: F [...] NV, elevated T bili,MEDICATION/IV/DRIP/FLUID ORDERS 2 OrderSheet [facility] Emergency Department [address] [place] [address] Phone #: ext- [phone] 06/09/2020 12:39 Patient: IRENE OCHOA Sex: F : 1980 Age: 39yOrder Description Priority Entered Acknowledged InitialedNS IV : Bolus 1000 13:08 06/09/2020 13:37 LukeymL, then 100 mL/hr Samir Franklin RN(NOW x1)Zofran [...] SMITH; Rigoberto RNBlood Pressure 13:08 06/09/2020 13:10 TerryMonitor Samir SMITH; Rigoberto RNNPO 13:08 06/09/2020 13:10 Santiago SMITH; Rigoberto RNPulse Oximetry 13:08 06/09/2020 13:10 TerryContinuous Samir SMITH; Rigoberto RNEKG 13:15 06/09/2020 13:30 Rory ED Samir SMITH; Pancho Jen ER Tech1[Electronically signed by Santiago Franklin RN (18:36 06/09/2020)][Electronically signed by Samir Sy (18:38 06/09/2020)][Electronically locked by Santiago Franklin RN (18:36 06/09/2020)] Name Value Range Interpretation Code Description Data Luzmaria rce(s) Supporting Document(s) ID Date Data Source [id number] 06/09/2020 12:49:00 PM EST [facility] 1 Medication Reconciliation Report [facility] Emergency Department [address] [place] [address] Phone #: ext- [phone] 06/09/2020 12:39 Patient: [...] rce(s) Supporting Document(s) ID Date Data Source [id number] 06/09/2020 12:49:00 PM EST [facility] 1 Medication Administration Record [facility] Emergency Department [address] [place] [address] Phone #: ext- [phone] 06/09/2020 12:39 Patient: IRENE OCHOA Sex: F : 1980 Age: 39yWeight: 82.5 kgHeight/Length: 68 inBMI: 27.7ALLERGIES: Latex Date/Time Medication Administered Medication OrderedStart NS [IV] NS IV : Bolus 1000 mL, then 58940:27 06/09/2020 Dose: IV Fluids mL/hr (NOW x1)Santiago [...] SODIUM) NS, administer over at least 2Terry Franklin, RN Dose: 40 mg IVP minutes, NOW x1) Site: #2 right ACGiven CLONIDINE [PO] cloNIDine PO 0.1 mg15:05 06/09/2020 Dose: 0.1 mg Tablets Gian Amanda CLONIDINE [PO] cloNIDine PO 0.1 mg16:59 06/09/2020 Dose: 0.1 mg Tablets Leyla Franklin RNGiven HYDRALAZINE [IVP] hydrALAZINE 20 mg IVP X 1 dose:17:25 06/09/2020 Dose: 20 mg IVP 20 mg (NOW x1)Santiago Franklin RN Site: #2 right AC Name Value Range Interpretation Code Description Data Luzmaria rce(s) Supporting Document(s) ID Date Data Source [id number] 06/11/2020 12:21:00 PM [facility] [address] [place] [address] PHONE: [phone] FAX: [phone] Name .................. : DON BONILLA Acct Number.................. : [id number] ROOM. ................. : TR-08 Number ................... : [id number] Stay type ............. : E/R Discharge Date......... ... : 06/09/20 Admit Date ......... : 06/09/20 Admit Phys .................... : DIANDRA FELDMAN Date of ....... : 1980 Family Phys ................... : SERVAGE PATRICE Phone .................. : [phone] Age ................................ : 39 Film# .................. .:[id number] Sex ................................. : F Unsigned transcriptions are preliminary reports and do not represent a medical or legal document CT ABD & PELVIS W/ IV ONLY [id number] COMPLETE:06/09/20 19:28 SERA 25247 Reason(s): lower/upper abd pain with NV, elevated [...] of administration: Intravenous Page 1 of [address] [facility] [address] [place] [address] [place] [address] PHONE: [phone] FAX: [phone] Name .................. : DON IRENE Acct Number.................. : [id number] ROOM. ................. : TR-08 MR Number ................... : [id number] Stay type ............. : E/R Discharge Date......... ... : 06/09/20 Admit Date ......... : 06/09/20 Admit Phys .................... : DIANDRA FELDMAN Date of ....... : 1980 Family Phys ................... : SERVAGE PATRICE Phone .................. : [phone] Age ................................ : 39 Film# .................. .:[id number] Sex ................................. : F Unsigned transcriptions are preliminary reports and do not represent a medical or legal document CT ABD & PELVIS W/ IV ONLY [id number] COMPLETE:06/09/20 19:28 SERA 85174 Reason(s): lower/upper abd pain with NV, elevated T bili, Electronically Reviewed and Signed By Alissa Montoya MD , 06/11/20 12:21, KGG Transcribe Initials: LUISANA , Transcribe Date: 06/10/20 01:20, Dictation Date: Copy for: DARRON Bullard via fax Copy for: EMERGENCY DEPT via [facility] Copy for: 710 MED REC DISCHARGED Page 2 of 2 Name Value Range Interpretation Code Description Data Luzmaria rce(s) Supporting Document(s) ID Date Data Source [id number] 06/09/2020 07:38:00 PM EST [facility] [address] [place] [address] RESPIRATORY CARE REPORT ==== ---------NAME------- NUMBER SEX AGE ADMIT DISC. XRAY# F/C TYPEPOUND IRENE [id number] F 39 06/09/20 06/09/20 [id number] KBO E/R DATE OF : 1980 M/R# [id number] #: [id number] TR-08 LOCATION: EMERGENCY DEPT EKG [id number] COMP LETE:06/09/20 15:52 [place] [address] PHYSICIAN: DIANDRA SY DECLAN Name Value Range Interpretation Code Description Data Luzmaria rce(s) Supporting Document(s) ID Date Data Source [id number] 06/09/2020 12:49:00 PM EST [facility] 1 General Instructions [facility] Emergency Department [address] [place] [address] Phone #: ext- [phone] 06/09/2020 12:39 Patient: [...] ADDITIONAL INFORMATIONViral Gastroenteritis (Adult) 2 General Instructions [facility] Emergency Department [address] [place] [address] Phone #: ext- [phone] 06/09/2020 12:39 - Patient: RIENE OCHOA Sex: F : 1980 Age: 39yGastroenteritis [...] of bowel control Headache 3 General Instructions [facility] Emergency Department [address] [place] [address] Phone #: ext- [phone] 06/09/2020 12:39 Patient: [...] with soap and water or use alcohol-based forensic manager to prevent the spread of infection. Wash your hands after touching anyone who is sick. Wash your hands or use alcohol-based forensic manager after using the toilet and before meals. [...] Keep uncooked meats away from cooked and xnfsh-ef-mwi foods.MedicineYou may use acetaminophen or NSAID medicines [...] spicy, or fried foods. 4 General Instructions [facility] Emergency Department [address] [place] [address] Phone #: ext- [phone] 06/09/2020 12:39 Patient: [...] your provider if you don't get better byulpp93 hours or if diarrhea lasts more than a week. Also follow up if you are unable to keep down liquidsand get dehydrated. If a stool (diarrhea) sample was taken, call as directed for the results.Call 911 5 General Instructions [facility] Emergency Department [address] [place] [address] Phone #: ext- [phone] 06/09/2020 12:39 Patient: [...] directed by your healthcare provider Bob kerns [phone] [employer]. [address] [place] [address]. All rights reserved. This information is not intended as asubstitute for professional medical care. Always follow your healthcare professional's instructions.Bladder Infection, Female (Adult) 6 General Instructions [facility] Emergency Department [address] [place] [address] Phone #: ext- [phone] 06/09/2020 12:39 Patient: [...] above the pubic bone. 7 General Instructions [facility] Emergency Department [address] [place] [address] Phone #: ext- [phone] 06/09/2020 12:39 Patient: [...] more serious kidney infection.Medicines 8 General Instructions [facility] Emergency Department [address] [place] [address] Phone #: ext- [phone] 06/09/2020 12:39 Patient: [...] will affect your treatment. 9 General Instructions [facility] Emergency Department [address] [place] [address] Phone #: ext- [phone] 06/09/2020 12:39 Patient: [...] swelling in the outer vaginal area (labia) [phone] [employer]. [address] [facility], [place] [address]. All rights reserved. This information is not [...] like cocaine and amphetamine. 10 General Instructions [facility] Emergency Department [address] [place] [address] Phone #: ext- [phone] 06/09/2020 12:39 Patient: [...] of salt when cooking. 11 General Instructions [facility] Emergency Department [address] [place] [address] Phone #: ext- [phone] 06/09/2020 12:39 Patient: IRENE OCHOA Sex: F : 1980 Age: 39y Start an exercise program. Talk with your healthcare provider about what exercise program is best for you. It doesn't have to be difficult. Even brisk walking for 20 minutes 3 times a week is a good form of exercise. Avoid medicines that stimulates the heart. This includes many mhjn-xut-iwsfgim cold and sinus decongestant pills and sprays, as well as diet pills. Check the warnings about high blood pressure on the label. Before purchasing any pvqw-ual-zwvwrdr medicines or supplements, always ask the pharmacist [...] on home blood pressure monitoring from the [employer]. Don't smoke or drink coffee for [...] manual for an illustration. 12 General Instructions [facility] Emergency Department [address] [place] [address] Phone #: ext- [phone] 06/09/2020 12:39 [id number] Sex: F : 1980 Age: 39y Take [...] Trouble speaking or seeing 13 General Instructions [facility] Emergency Department [address] [place] [address] Phone #: ext- [phone] 06/09/2020 12:39 Patient: IRENE OCHOA Sex: F : 1980 Age: 39y [phone] [employer]. [address] [place] [address], [place] [id number]. All rights reserved. This information is not intended as asubstitute for professional medical care. Always follow your healthcare professional's instructions.Gladwin DietYour healthcare provider may recommend a bland [...] or rye bread, alcon or soda crackers, [place] toast, plain rolls, bagelsAvoid: Whole-grain breadCerealOK: Refined cereals: cooked or ready to eatAvoid: Whole-grain cereals and granola, or those containing bran, seeds or nutsDesserts 14 General Instructions [facility] Emergency Department [address] [place] [address] Phone #: ext- [phone] 06/09/2020 12:39 Patient: [...] extracts, umer, cinnamon, thyme, mace, allspice, paprikaAvoid: [place] powder, cloves, pepper, seed spices, garlic, gravy pickles, highly seasoned saladdressings 15 General Instructions [facility] Emergency Department [address] [place] [address] Phone #: ext- [phone] 06/09/2020 12:39 Patient: IRENE OCHOA Sex: F : 1980 Age: 39y [phone] [employer]. [address] [place] [address]. All rights reserved. This information is not [...] most grocery stores. You don't need aprescription. [phone] [employer]. [address] [place] [address], [place] [address]. All rights reserved. This information is not intended as asubstitute for professional medical care. Always follow your healthcare professional's instructions. 16 General Instructions [facility] Emergency Department [address] [place] [address] Phone #: ext- [phone] 06/09/2020 12:39 Patient: IRENE OCHOA Sex: F : 1980 Age: 39yYou have been given the following additional information:Gastroenteritis, Viral (Adult)Bladder Infection, Female (Adult)High Blood Pressure, Established, Out of ControlDiet, Gladwin (Adult)Clear Liquid DietNo strenuous activity until better. Rest at home for two days.(Electronically signed by LUIS Knox 06/09/2020 18:38) Name Value Range Interpretation Code Description Data Luzmaria rce(s) Supporting Document(s) ID Date Data Source [id number] 06/09/2020 12:49:00 PM [facility] 1 Clinical Report - Nurses [facility] Emergency Department [address] [place] [address] Phone #: ext- [phone] 06/09/2020 12:39 Patient: IRENE OCHOA Sex: F : 1980 Age: 39yTRIAGEArrived by private vehicle. Historian: patient. Accompanied by family. ( infection in left foot has beenbeing treated, started treatment and then tuesday started vomitting).Acuity: LEVEL 3.Chief Complaint: ABDOMINAL PAIN, NAUSEA and VOMITING.Alert.Onset. (tuesday). She has had abdominal pain. The pain is described as generalized.Treatment STAVE BOLT EQUALIZER:None.SEPSIS SCREEN: SIRS Screen negative. Sepsis Screen negative. [...] Browne R.N. 2 Clinical Report - Nurses [facility] Emergency Department [address] [place] [address] Phone #: ext- [phone] 06/09/2020 12:39 Patient: [...] treatment room. --12:48 06/09/20 Cee Browne R.N.PHYSICAL CLQLVAYPUQ96:09 06/09/20. Ambulatory to room.GENERAL / NEURO / [...] Browne R.N. 3 Clinical Report - Nurses [facility] Emergency Department [address] [place] [address] Phone #: ext- [phone] 06/09/2020 12:39 Patient: IRENE OCHOA Sex: F : 1980 Age: 39y13:30 06/09/20. BP: 171/114. MAP: 133. HR: 98. RR: 18. O2 saturation: 99%. --13:30 06/09/20 Jen Landrum ER Zkdk236:27 06/09/2020 Site #1 started via IV in [...] Santiago Franklin RNCardiac rhythm: normal sinus rhythm; (8142). EKG time: (13:25 06/09/2020). EKG was performed [...] protocol ;labeled in presence of the patient. (3414). --13:58 06/09/20 Santiago Franklin RN14:04 06/09/20. BP: 178/105. MAP: 129. HR: 88. RR: 16. O2 saturation: 98%. --14:04 06/09/20 Jen Landrum ER Dvsx385:00 06/09/2020 PROTONIX (Pantoprazole Sodium) IVP 40 mg [...] precautions initiated. Gowns and gloves in use. (9486). --14:10 06/09/20 Santiago Franklin RN14:27 06/09/20. BP: 173/107. MAP: 129. HR: 88. RR: 16. O2 saturation: 100%. --14:28 06/09/20 Jen Landrum ER Tech1 4 Clinical Report - Nurses [facility] Emergency Department [address] [place] [address] Phone #: ext- [phone] 06/09/2020 12:39 Patient: [...] saturation: 100%. --14:56 06/09/20 Jen Landrum ER Ohgz685:05 06/09/2020 Clonidine PO Tablets 0.1 mg given. Allergies verified and confirmed 5 rights. Informationreviewed with patient. --15:05 06/09/20 Santiago Franklin RN( Zane Sy notified B/P still elevated V/O clonidine received and given). --15:06 06/09/20 SAIDA Fuller15:28 06/09/20. BP: 169/106. MAP: 127. HR: 91. RR: 16. O2 saturation: 98%. --15:29 06/09/20 Jen Landrum ER Lqml2Dndqfgm transported to CT by wheelchair with mask and public works technician. (1540). --15:41 06/09/20 SAURABH Fulleratient returned from CT by wheelchair with mask and public works technician. (1550). --15:53 06/09/20 Mo mcdowell RN( 1555 pt stating feeling better after I V fluids). --15:54 06/09/20 Santiago Franklin RN15:59 06/09/20. BP: 169/107. MAP: 127. HR: 88. RR: 16. O2 saturation: 98%. --15:59 06/09/20 Rory EDPancho, MERY Li [id number] patient name and birthdate: patient confirmed. Clean catch urine collected with return ofamber-colored urine; sample sent to lab for urinalysis. Specimen labeled in the presence of the patient(2806). --16:54 06/09/20 Santiago Franklin RN( 0745 P A notified of B/P with new [...] rights. Information 5 Clinical Report - Nurses [facility] Emergency Department [address] [place] [address], [place] [address] Phone #: ext- [phone] 06/09/2020 12:39 Patient: IRENE OCHOA Sex: F [...] same. The patient feels the same. Physician assistant secretary notified. --17:29 06/09/20 Santiago Franklin RN 17:25 [...] Pain level now: 0/10. --17:45 06/09/20 Santiago Frnaklin RN 17:45 06/09/2020 Hydralazine IVP Response: symptoms have improved the patient feels better. Physician assistant secretary notified. --17:45 06/09/20 Santiago Franklin RN.DISPOSITION / [...] Patient verbalized understanding. Written instructions provided in Kinyarwanda. The patient was discharged by the physician assistant secretary. She was discharged home and accompanied by spouse. She left ambulatory and via private vehicle. Spouse driving. --18:16 06/09/20 Santiago Franklin RN. 6 Clinical Report - Nurses [facility] Emergency Department [address] [place] [address] Phone #: [phone]- [phone] 06/09/2020 12:39 Patient: IRENE OCHOA Sex: F : 1980 Age: 39yLocked/Released at 06/09/2020 18:36 by Santiago Franklin RN Name Value Range Interpretation Code Description Data Luzmaria rce(s) Supporting Document(s) ID Date Data Source [id number] 06/09/2020 12:49:00 PM EST [facility] 1 Clinical Report - Physicians/Mid Levels [facility] Emergency Department [address] [place] [address] Phone #: ext- [phone] 06/09/2020 12:39 Patient: [...] 2 C linical Report - Physicians/Mid Levels [facility] Emergency Department [address] [place] [address] Phone #: ext- [phone] 06/09/2020 12:39 Patient: IRENE OCHOA [facility]#: [id number] Sex: F : 1980 Age: 39y ITP. [...] saturation: 99% on roomair. Pain level now: 0.06/09/2020 17:18 BP: 173/111. MAP: 131. HR: 92. RR: 18. O2 saturation: 96% on room air. Pain levelnow: 0.06/09/2020 16:50 BP: 171/110. MAP: 130. HR: 87. [...] No 3 Clinical Report - Physicians/Mid Levels [facility] Emergency Department [address] [place] [address] Phone #: ext- [phone] 06/09/2020 12:39 Patient: [...] making process. Troponin-T: (LAYNE: 06/09/2020 13:50) ( [facility] 06/09/2020 14:15) Final results Test Result Flag Units (Reference) TROPONIN T <0.01 NG/ML (0.00 - 0.10) TROPONIN T0.1 ng/ml Recommended as the clinical threshold value forTroponin T. Beta-HCG, Qual Serum: (LAYNE: 06/09/2020 13:50) ( [facility] 06/09/2020 14:08) Final results Test Result Flag Units (Reference) HCG SERUM QUAL NEGATIVE (NORMAL: NEGAT HCG SERUM QL REENTER NEGATIVE (NORMAL: NEGAT { KIT LOT # [id number] ){ KIT EXP DATE 04.08.21 ){ PROCEDURAL CONTROL VALID ) CBC w Diff: (LAYNE: 06/09/2020 13:50) ( [facility] 06/09/2020 14:03) Final results Test Result Flag [...] 80.0) 4 Clinical Report - Physicians/Mid Levels [facility] Emergency Department [address] [place] [address] Phone #: ext- [phone] 1 08/10/2019 12:39 [...] Male GFR Interprentation 20-49 yrs >60 mL/min Thjsqq32-09 yrs >56 mL/min Normal 60-69 yrs >49 mL/min Normal 70-79yrs>42 mL/min Normal 80 and above >35 mL/min Normal Female GFRInterpretation 20-39 yrs >60 mL/min Normal 40-49 yrs >58 mL/minNormal 50-59 yrs >51 mL/min Normal 60-69 yrs >45 mL/min Lesepu17-20 yrs >39 mL/min Normal 80 and above >32 mL/min NormalLactic Acid: (LAYNE: 06/09/2020 13:50) ( DcgRcvd 06/09/2020 14:07) Final results Test Result Flag Units (Reference) LACTIC ACID 3.2 H MMOL/L (0.2 - 2.2)Magnesium: (LAYNE: 06/09/2020 13:50) ( MsgRcvd 06/09/2020 14:17) Final results Test Result Flag Units (Reference) MAGNESIUM 2.0 MG/DL (1.7 - 2.2)Lipase: (LAYNE: 06/09/2020 13:50) ( DcgRcvd 06/09/2020 14:18) Final results 5 Clinical Report - Physicians/Mid Levels [facility] Emergency Department [address] [place] [address] Phone #: ext- [phone] 06/09/2020 12:39 Patient: IRENE OCHOA Sex: F : 1980 Age: 39y Test Result Flag Units (Reference) LIPASE 15 U/L (13 - 60) Urinalysis: (LAYEN: 06/09/2020 16:45) ( MsgRcvd 06/09/2020 17:07) Final [...] no improvement will admit for hypertensive urgency. 18:01 Jun 09 2020. Pt improved to 158/98 after [...] treatment. 6 Clinical Report - Physicians/Mid Levels [facility] Emergency Department [address] [place] [address] Phone #: ext- [phone] 06/09/2020 12:39 Patient: [...] 06/09/2020 18:38) 7Clinical Report - Physicians/Mid Levels [facility] Emergency Department [address] [place] [address] Phone #: ext- [phone] 06/09/2020 12:39 Patient: IRENE OCHOA Sex: F : 1980 Age: 39y Name Value Range Interpretation Code Description Data Luzmaria rce(s) Supporting Document(s) ID Date Data Source [id number] 06/13/2020 03:09:00 PM EST [facility] Name Value Range Interpretation Code Description Data Luzmaria rce(s) Supporting Document(s) CULTURE URINE [facility] _CULTURE URINE_$$[id number]$$[id number]$$[id number]$$[id number]$$[id number]$$[id number]$$[id number]$$[id number]$$157877$$ [id number]$$[id number]$$[id number]$$247964$$100512$$628920$$175411$$377534$$[id number]$$486320$$ 974559$$471157$$949412$$269400$$427030$$545933$$[id number]$$[id number] -- Continued on next page --Patient: DON BONILLA Order: [id number] Page 2Culture: CULTURE URINE Status: Final ==== -- Continued on next page --Patient: DON BONILLA Order: [id number] Page 2Culture: CULTURE URINE Status: Prelim =====$$[id number] DATE/TIME: 06/13/2020 11:06Culture: CULTURE URINE Status: FinalIsolate [...] 06/12/2020 01:49 ET Gram negative rodsUrine Culture,Comprehensive: [id number] pneumoniae Flag: APatient: DON BONILLA Order: [id number] Page 3Culture: CULTURE URINE Status: Final ISOLATE [...] S S . . . . . .00805-9Lyfndrygzh S S . . . . . .267-5Imipenem S S . . . . . .279-0Levofloxacin S S . . . . . .27930-9Jbxoipceo S S . . . . . .6652- 2Nitrofurantoin R R . . . . . .363-2Piperacillin/Tazobactam I I . . . . . .412-7Tetracycline R R . . . . . .496-0Tobramycin S S . . . . . .508-2Trimethoprim/Sulfa R R . . . . . .516-5P1 Test perfo rmed by: Claudine Gonzales [facility] #: [id number] [address] [place] [address] [id number] [facility] [id number] Director : Sky Macedo MD NPI #:Negative Turner Apprentice : 06/12/20.0646.XMT.SENT REF 06/13/20.1509.XMT.SENT REF ID Date Data Source [id number] 06/09/2020 05:07:00 PM EST [facility] Name Value Range Interpretation Code Description Data Luzmaria rce(s) Supporting Document(s) URINALYSIS [facility] URINALYSIS SOURCE R [facility] COLOR yellow NORMAL: Yellow [facility] CLARITY clear NORMAL: Clear [facility] Specific gravity of Urine by Test strip 1.010 1.001 - 1.030 [facility] pH 6.5 5 - 9 [facility] Glucose [Mass/volume] in Urine by Test strip NORM NORMAL: Negat [facility] Bilirubin.total [Presence] in Urine by Test strip NEG NORMAL: Negative [facility] Ketones [Presence] in Urine by Test strip 15 NORMAL: Negative [facility] Protein [Mass/volume] in Urine by Test strip 30 NORMAL: Negat [facility] Nitrite [Presence] in Urine by Test strip NEG NORMAL: Negative [facility] BLOOD 50 NORMAL: Negative [facility] Leukocyte esterase [Presence] in Urine by Test strip 25 GENEVIEVE L: Negative [facility] Urobilinogen [Mass/volume] in Urine by Test strip NOR less alistair n 1.0 mg/dL [facility] MICROSCOPIC See Below [facility] ital WBC 1 - 3 NORMAL: NONE SEEN [facility] Erythrocytes [#/volume] in Urine by Test strip 1 - 3 NORMAL: NON E SEEN [facility] EPITHELIAL FEW NORMAL: NONE SEEN [facility] Bacteria [Presence] in Urine sediment by Light microscopy Tr sujata NORMAL: NONE SEEN [facility] ID Date Data Source [id number] 06/11/2020 08:12:00 AM [facility] Name Value Range Interpretation Code Description Data Luzmaria rce(s) Supporting Document(s) Cortisol [Mass/volume] in Serum or Plasma 36.2 ug/dL [facility] C ortisol AM 6.2 - 19.4 Cortisol PM 2.3 - 11.9 ID Date Data Source [id number] 06/09/2020 02:17:00 PM [facility] Name Value Range Interpretation Code Description Data Luzmaria rce(s) Supporting Document(s) COMPREHENSIVE METABOLIC PANEL [facility] COMPREHENSIVE METABOLIC PANEL Sodium [Moles/volume] in Serum or Plasma 139 mEq/L 134 - 153 [facility] Potassium [Moles/volume] in Serum or Plasma 3.5 mEq/L 3.6 - 5.0 L [facility] Chloride [Moles/volume] in Serum or Plasma 103 mEq/L 98 - 107 [facility] Carbon dioxide, total [Moles/volume] in Serum or Plasma 24 MEQ/L 22 - 30 [facility] Glucose [Mass/volume] in Serum or Plasma 112 MG/DL 65 - 110 H [facility] BUN 14 MG/DL 7 - 21 [facility] Creatinine [Mass/volume] in Serum or Plasma 0.6 MG/DL 0.7 - 1.5 L [facility] BUN/CREAT 23 8 - 27 [facility] al Protein [Mass/volume] in Serum or Plasma 6.9 G/DL 6.3 - 8.2 [facility] Albumin [Mass/volume] in Serum or Plasma 4.3 G/DL 3.9 - 5.0 [facility] Globulin [Mass/volume] in Serum by calculation 2.6 GM/DL 2.4 - 3.2 [facility] A/G RATIO 1.7 0.8 - 2.0 [facility] Calcium [Mass/volume] in Serum or Plasma 8.5 MG/DL 8.4 - 10.2 [facility] Bilirubin.total [Mass/volume] in Serum or Plasma 1.7 MG/DL 0.2 - 1.3 H [facility] Alkaline phosphatase [Enzymatic activity/volume] in Serum or Plasma 75 U/L 38 - 126 [facility] Aspartate aminotransferase [Enzymatic activity/volume] in Serum or Plasma 45 U/L 5 - 40 H [facility] Alanine aminotransferase [Enzymatic activity/volume] in Seru m or Plasma 23 U/L 7 - 56 [facility] Anion gap 3 in Serum or Plasma 12.0 mmol/L 8.0 - 16.0 [facility] AGE 39 yrs [facility] al NON-AA GFR >60 mL/min [facility] ital AFR AMER GFR >60 mL/min [facility] Male GFR In terprentation [...] >32 mL/min Normal ID Date Data Source [id number] 06/09/2020 02:17:00 PM [facility] Name Value Range Interpretation Code Description Data Luzmaria rce(s) Supporting Document(s) Lipase [Enzymatic activity/volume] in Serum or Plasma 15 U/L 13 - 60 [facility] ID Date Data Source [id number] 06/09/2020 02:17:00 PM [facility] Value Range Interpretation Code Description Data Luzmaria rce(s) Supporting Document(s) Magnesium [Mass/volume] in Serum or Plasma 2.0 MG/DL 1.7 - 2.2 [facility] ID Date Data Source [id number] 06/09/2020 02:15:00 PM [facility] Value Range Interpretation Code Description Data Luzmaria rce(s) Supporting Document(s) TROPONIN T <0.01 NG/ML 0.00 - 0.10 [facility] TROPONIN T0.1 ng/ml Recommended as the c linical threshold value forTroponin T. ID Date Data Source [id number] 06/09/2020 02:08:00 PM [facility] Value Range Interpretation Code Description Data Luzmaria rce(s) Supporting Document(s) HCG SERUM QUAL NEGATIVE NORMAL: NEGATIVE [facility] HCG SERUM QL REENTER NEGATIVE NORMAL: NEGATIVE [facility] { KIT LOT # [id number] ){ KIT EXP DATE 04.08.21 ){ PROCEDURAL CONTROL VALID ) ID Date Data Source [id number] 06/09/2020 02:07:00 PM [facility] Name Value Range Interpretation Code Description Data Luzmaria rce(s) Supporting Document(s) Lactate [Moles/volume] in Serum or Plasma 3.2 MMOL/L 0.2 - 2.2 H [facility] ID Date Data Source [id number] 06/09/2020 02:02:00 PM [facility] Value Range Interpretation Code Description Data Luzmaria rce(s) Supporting Document(s) CBC W/AUTOMATED DIFF [facility] COMPLETE BLOOD COUNT Leukocytes [#/volume] in Blood by Automated count 4.3 10^3/uL 4.2 - 1 1.0 [facility] Erythrocytes [#/volume] in Blood by Automated count 4.80 10^6/uL 4. 20 - 5.40 [facility] Hemoglobin [Mass/volume] in Blood 16.2 g/dL 12.0 - 16.0 H [facility] Hematocrit [Volume Fraction] of Blood by Automated count 45.9 % 3 7.0 - 47.0 [facility] Erythrocyte mean corpuscular volume [Entitic volume] by Auto mated count 95.6 fL 81.0 - 101 [facility] Erythrocyte mean corpuscular hemoglobin [Entitic mass] by Automated count 33.8 pg 27.0 - 34.0 [facility] Erythrocyte mean corpuscular hemoglobin concentration [Mass/volume] by Automated count 35.3 g/dL 31.0 - 36.0 [facility] Erythrocyte distribution width [Ratio] by Automated count 12.7 % 11.5 - 14.5 [facility] Platelets [#/volume] in Blood by Automated count 96 10^3/uL 150 - 450 L [facility] Platelet mean volume [Entitic volume] in Blood by Automated count 10.5 fL 7.4 - 10.4 H [facility] Neutrophils/100 leukocytes in Blood by Automated count 64.3 % 37. 0 - 80.0 [facility] Lymphocytes/100 leukocytes in Blood by Manual count 25.6 % 25.0 - 40.0 [facility] Monocytes/100 leukocytes in Blood by Automated count 8.7 % 3.0 - 8.0 H [facility] Eosinophils/100 leukocytes in Blood by Automated count 0.2 % 0.0 - 7.0 [facility] Basophils/100 leukocytes in Blood by Automated count 0.5 % 0.0 - 2.5 [facility] %IG 0.7 % 0.0 - 0.0 [facility] %[facility] 0.0 % 0.0 - 0.0 [facility] al Neutrophils [#/volume] in Blood by Automated count 2.73 10^3/uL 2.00 - 6.90 [facility] Lymphocytes [#/volume] in Blood by Automated count 1.09 10^3/uL 0.60 - 3.40 [facility] Monocytes [#/volume] in Blood by Automated count 0.37 10^3/uL 0.00 - 0.90 [facility] Eosinophils [#/volume] in Blood by Automated count 0.01 10^3/uL 0.00 - 0.70 [facility] Basophils [#/volume] in Blood by Automated count 0.02 10^3/uL 0.00 - 0.20 [facility] #IG 0.03 10^3/uL 0.00 - 0.10 [facility] #NRBC 0.00 10^3/uL 0.00 - 0.00 [facility] MANUAL DIFF NOT INDICATED [facility] RBC MORPH NOT INDICATED [facility] spital ID Date Data Source [id number] 06/16/2020 02:12:00 PM EST [facility] Name Value Range Interpretation Code Description Data Luzmaria rce(s) Supporting Document(s) Urine Culture [facility] ID Date Data Source [id number] 06/16/2020 02:12:00 PM EST [facility] Name Value Range Interpretation Code Description Data Luzmaria rce(s) Supporting Document(s) Amoxicillin/Clavulanic Acid Susc eptible. Indicates for microbiology susceptibilities only. [facility] Cefazolin Susceptible. Indicates for microbiol ogy susceptibilities only. [facility] Cefepime Susceptible. Indicates for microbiol ogy susceptibilities only. [facility] Ceftriax[facility] Susceptible. Indicates for m icrobiology susceptibilities only. [facility] Ciprofloxacin Susceptible. Ind icates for microbiology susceptibilities only. [facility] Ertapenem Susceptible. Indicates for microbiol ogy susceptibilities only. [facility] Gentamicin Susceptible. Indicates for microbiol ogy susceptibilities only. [facility] Imipenem Susceptible. Indicates for microbiol ogy susceptibilities only. [facility] Meropenem Susceptible. Indicates for microbiol ogy susceptibilities only. [facility] Levofloxacin Susceptible. Indicates for m icrobiology susceptibilities only. [facility] Nitrofurantoin 128 Results entered -- not verified [facility] Pipercillin/Tazobactam 8 Susceptib le. Indicates for microbiology susceptibilities only. [facility] Trimeth/Sulfamethoxazole Suscept ible. Indicates for microbiology susceptibilities only. [facility] ID Date Data Source [id number] 05/16/2020 08:39:00 AM EST [facility] spital QUANTITY: >100,000/mL {KLEBSIELLA P NEUMONIAE} KLEBSIELLA PNEUMONIAESCT Name Value Range Interpretation Code Description Data [facility] rce(s) Supporting Document(s) ID Date Data Source [id number] 05/16/2020 08:39:00 AM EST [facility] QUANTITY: >100,000/mL {KLEBSIELLA P NEUMONIAE} KLEBSIE[facility]A PNEUMONIAESCT Name Value Range Interpretation Code Description Data [facility] rce(s) Supporting Document(s) Amoxicillin/Clavulanic Acid Susc eptible. Indicates for microbiology susceptibilities only. [facility] [place] [facility] Cefazolin Susceptible. Indicates for microbiol ogy susceptibilities only. [facility] [place] [facility] Cefepime Susceptible. Indicates for microbiol ogy susceptibilities only. [facility] [place] [facility] ESBL - [facility] Ceftriaxone Susceptible. Indicates for m icrobiology susceptibilities only. [facility] [place] [facility] Ciprofloxacin Susceptible. Ind icates for microbiology susceptibilities only. [facility] [place] [facility] Ertapenem Susceptible. Indicates for microbiol ogy susceptibilities only. [facility] [place] [facility] Gentamicin Susceptible. Indicates for microbiol ogy susceptibilities only. [facility] [place] [facility] Imipenem Susceptible. Indicates for microbiol ogy susceptibilities only. [facility] [place] [facility] Meropenem Susceptible. Indicates for microbiol ogy susceptibilities only. [facility] Levofloxacin Susceptible. Indicates for m icrobiology susceptibilities only. [facility] Nitrofurantoin 128 Results entered -- not verified [facility] [place] [facility] Pipercillin/Tazobactam 8 Susceptib le. Indicates for microbiology susceptibilities only. [facility] [place] [facility] Trimeth/Sulfamethoxazole Suscept ible. Indicates for microbiology susceptibilities only. [facility] [place] [facility] ID Date Data Source [id number] 08/19/2020 03:10:00 PM EST [facility] [place] [facility] Name Value Range Interpretation Code Description Data Luzmaria rce(s) Supporting Document(s) Thyroglobulin Antibody result <4.0 Normal (applies t o non-numeric results) [facility] [place] [facility] ADDITIONAL INFORMATIO N The thyroglobulin antibody testing method is an immunoenzymatic assay manufactured by [employer]. and performed on the [employer] DXI 800. Values obtained from different assay methods or kits may be different and cannot be used interchangeably. The results cannot be interpreted as absolute evidence for the presence or absence of malignant disease. Test Performed by: [place] [address] Negative Turner Apprentice: Vicente Suárez M.D. Ph.D.; CLIA# [id number] ID Date Data Source [id number] 08/19/2020 03:09:00 PM [facility] Value Range Interpretation Code Description Data Luzmaria rce(s) Supporting Document(s) Thyroperoxidase Ab Normal (applies to non-numer ic results) [facility] [place] [facility] Test performed [place] [address] ID Date Data Source [id number] 08/19/2020 02:52:00 PM [facility] Value Range Interpretation Code Description Data Luzmaria rce(s) Supporting Document(s) Thyroperoxidase Ab Normal (applies to non-numer ic results) [facility] Test performed or referred by The [address] [address] ID Date Data Source [id number] 08/19/2020 02:52:00 PM [facility] Value Range Interpretation Code Description Data Luzmaria rce(s) Supporting Document(s) Thyroglobulin Antibody result <4.0 Normal (applies t o non-numeric results) [facility] ADDITIONAL INFORMATIO N The thyroglobulin antibody testing method is an immunoenzymatic assay manufactured by [employer] and performed on the [employer] DXI 800. Values obtained from different assay methods or kits may be different and cannot be used interchangeably. The results cannot be interpreted as absolute evidence for the presence or absence of malignant disease. Test Performed by: [facility] [address] [place] [address] Negative Turner Apprentice: Vicente Suárez M.D. Ph.D.; CLIA# [id number] ID Date Data Source [id number] 06/16/2020 02:12:00 PM EST [facility] Name Value Range Interpretation Code Description Data Luzmaria rce(s) Supporting Document(s) Creatinine,Urine Normal (applies to non-numeric results) [facility] Interpret with care as there is no estab lished reference range associated with this assay's methodology that pertains to this particular sex and/or age. Microalbumin,Urine <1.7 Normal (applies to non-numer ic results) [facility] Albumin/Creatinine Ratio,Urine Normal (applies to non-numeric results) [facility] Test Performed By: [facility] [address] [place] [address] Director: Modesto Joshi MD Reference Ranges for Microalbumin,spot: Normal <30 ug/mg creatinine Microalbuminuria 30-300 ug/mg creatinine Clinical Albuminuria >300 ug/mg creatinine ID Date Data Source [id number] 06/16/2020 02:12:00 PM EST [facility] Name Value Range Interpretation Code Description Data Luzmaria rce(s) Supporting Document(s) T3 (Tri-Iodothyronine) 60.0-181.0 Normal (applies to non-n umeric results) [facility] Test Performed By: [facility] [address] [place] [address] Director: Modesto Joshi MD ID Date Data Source [id number] 06/16/2020 02:12:00 PM EST [facility] Name Value Range Interpretation Code Description Data Luzmaria rce(s) Supporting Document(s) CPK 59 U/L 26-192 Normal (applies to non-numeric resul ts) [facility] Test Performed By: [facility] [address] [place] [address] Director: Modesto Joshi MD ID Date Data Source [id number] 06/16/2020 02:12:00 PM EST [facility] Name Value Range Interpretation Code Description Data Luzmaria rce(s) Supporting Document(s) T4 (Thyroxine) 4.8-13.9 Normal (applies to non-numeric r esults) [facility] Test Performed By: [facility] [address] [place] [address] Director: Modesto Joshi MD ID Date Data Source [id number] 06/16/2020 02:12:00 PM EST [facility] Name Value Range Interpretation Code Description Data Luzmaria rce(s) Supporting Document(s) Free T3 2.18-3.98 Normal (applies to non-numeric resul ts) [facility] Test Performed By: [facility] [address] [place] [address] Director: Modesto oJshi MD ID Date Data Source [id number] 05/15/2020 04:42:00 PM [facility] MB if CPK is elevated? Y MB if CPK is elevated? Y MB if CPK is elevated? Y Name Value Range Interpretation Code Description Data Luzmaria rce(s) Supporting Document(s) CPK result 59 U/L 26-192 Normal (applies to non-numeric resul ts) [facility] [place] [facility] Test Performed By: [facility] [address] [place] [address] Director: Modesto Joshi MD ID Date Data Source [id number] 05/15/2020 04:42:00 PM [facility] MB if CPK is elevated? Y MB if CPK is elevated? Y MB if CPK is elevated? Y Name Value Range Interpretation Code Description Data Luzmaria rce(s) Supporting Document(s) Free T3 result 2.18-3.98 Normal (applies to non-numeric r esults) [facility] [place] [facility] Test Performed By: [facility] [address] [place] [address] Director: Modesto Joshi MD T3 result 60.0-181.0 Normal (applies to non-numeric resul ts) [facility] [place] [facility] Test Performed By: [facility] [address] [place] [address] Director: Modesto Joshi MD ID Date Data Source [id number] 05/15/2020 04:42:00 PM EST [facility] [place] [facility] MB if CPK is elevated? Y MB if CPK is elevated? Y MB if CPK is elevated? Y Name Value Range Interpretation Code Description Data Luzmaria rce(s) Supporting Document(s) T4 result 4.8-13.9 Normal (applies to non-numeric resul ts) [facility] [place] [facility] Test Performed By: [facility] [address] [place] [address] Director: Modesto Joshi MD ID Date Data Source [id number] 05/15/2020 07:09:00 AM [facility] Name Value Range Interpretation Code Description Data Luzmaria rce(s) Supporting Document(s) UMALB Urine Creatinine result Normal (applies t o non-numeric results) [facility] [place] [facility] Interpret with care as there is no estab lished reference range associated with this assay's methodology that pertains to this particular sex and/or age. UMALB Microalbumin,Ur result <1.7 Normal (applies to non-numeric results) [facility] [place] [facility]AL[facility] Alb/Cre Ratio,Ur result Normal (applies t o non-numeric results) [facility] [place] [facility] Test Performed By: [facility] [address] [place] [address] Director: Modesto Joshi MD Reference Ranges for Microalbumin,spot: Normal <30 ug/mg creatinine Microalbuminuria 30-300 ug/mg creatinine Clinical Albuminuria >300 ug/mg creatinine ID Date Data Source [id number] 05/14/2020 04:11:00 PM [facility] Name Value Range Interpretation Code Description Data Luzmaria rce(s) Supporting Document(s) White Blood Count 3.5-10.5 Normal (applies to non-numeri c results) [facility] [place] [facility] Red Blood Count 3.90-5.00 Normal (applies to non-numeric results) [facility] [place] [facility] Hemoglobin 12.0-15.5 Normal (applies to non-numeric resul ts) [facility] Hematocrit 34.9-44.5 Normal (applies to non-numeric resul ts) [facility] Mean Corpuscular Volume 81.2-95.1 Above high normal [facility] Mean Corpuscular Hgb 25.6-32.2 Above high normal [facility] Mean Corpuscular Hgb Conc 32.0-36.0 Normal (applies to no n-numeric results) [facility] Red Cell Distribution Width 11.9-15.5 Normal (appli es to non-numeric results) [facility] Platelet Count 71 x10 3/uL 150-450 Below low normal [facility] Mean Platelet Volume 9.4-12.4 Normal (applies to non-num dc results) [facility] Neutrophils% (Auto) 31.0-71.0 Normal (applies to non-nume juliette results) [facility] Lymphocytes% (Auto) 20.0-55.0 Normal (applies to non-nume juliette results) [facility] Monocytes% (Auto) 4.0-12.0 Normal (applies to non-numeri c results) [facility] Eosinophils% (Auto) 1.0-8.0 Below low normal [facility] Basophils% (Auto) 0.0-2.0 Normal (applies to non-numeri c results) [facility] [place] [facility] Immature Granulocytes% (Auto) 0.0-2.0 Normal (ced lies to non-numeric results) [facility] Neutrophils# (Auto) 1.50-6.20 Normal (applies to non-nume juliette results) [facility] Lymphocytes# (Auto) 1.20-4.00 Normal (applies to non-nume juliette results) [facility] Monocytes# (Auto) 0.00-0.90 Normal (applies to non-numeri c results) [facility] Eosinophils# (Auto) 0.00-0.50 Normal (applies to non-nume juliette results) [facility] Basophils# (Auto) 0.00-0.20 Normal (applies to non-numeri c results) [facility] Immature Granulocytes# (Auto) 0.00-7.00 No rmal (applies to non-numeric results) [facility] [place] [facility] Slide Reviewed By Normal (applies to non-numeri c results) [facility] Slide has been reviewed and findings con firmed by a technologist/surface lay out technician. ID Date Data Source [id number] 05/14/2020 03:34:00 PM EST [facility] C&S IF INDICATED Name Value Range Interpretation Code Description Data Luzmaria rce(s) Supporting Document(s) Color,Urine Colorl-Dk Y Normal (applies to non-numeric res ults) [facility] [place] [facility] Clarity,Urine Clear Normal (applies to non-numeric re sults) [facility] Specific [place],Urine 1.005-1.030 Normal (applies to non- numeric results) [facility] pH,Urine 5.0-8.0 Normal (applies to non-numeric resul ts) [facility] Protein,Urine Negative Normal (applies to non-numeric re sults) [facility] Glucose,Urine Negative Normal (applies to non-numeric re sults) [facility] Ketones,Urine Negative Normal (applies to non-numeric re sults) [facility] Blood,Urine Negative [facility] Bil[facility] Negative Normal (applies to non-numeric results) [facility] Urobilinogen,Urine 0.2-1.0 Normal (applies to non-numer ic results) [facility] Leukocyte Esterase,Urine Negative Normal (applies to non -numeric results) [facility] Nitrite,Urine Negative Normal (applies to non-numeric re sults) [facility] RBC,Urine None Seen [facility] WBC,Urine None Seen [facility] Casts,Urine None Seen Normal (applies to non-numeric resu lts) [facility] Squamous Cells,Urine None Seen [facility] Bacteria,Urine None Seen [facility] ID Date Data Source [id number] 05/14/2020 02:56:00 PM EST [facility] Name Value Range Interpretation Code Description Data Luzmaria rce(s) Supporting Document(s) Sodium 139 mmol/L 136-145 Normal (applies to non-numeric resul ts) [facility] Potassium 3.5-5.1 Below low normal [facility] Chloride 101 mmol/L 98-107 Normal (applies to non-numeric resul ts) [facility] Carbon Dioxide CO2 21-32 Normal (applies to non-numer ic results) [facility] Anion Gap 5.0-16.0 Normal (applies to non-numeric resul ts) [facility] BUN 13 mg/dL 7-18 Normal (applies to non-numeric results) [facility] Creatinine,Serum 0.7-1.2 Normal (applies to non-numeric results) [facility] GFR >60 Normal (applies to non-numeric results) [facility] Glucose Level 82 mg/dL 60-99 Normal (applies to non-numeric re sults) [facility] Reference range is only applicable when patient is fasting Note the following drug interference: Sulfasalazine Sulfapyridine Can see falsely depressed Can see falsely elevated result with up to 17% results with up to 11% decrease in measurement increase in measurement Recommend patients be collected for this test prior to administration of either drug. Calcium 8.5-10.1 Below low normal [facility] Bilirubin,Total 0.1-1.9 Normal (applies to non-numeric results) [facility] SGOT(AST) 33 U/L 15-37 Normal (applies to non-numeric resul ts) [facility] Note the following drug interference: Sulfasalazine Sulfapyridine Can see falsely depressed Can see falsely elevated result with up to 10% results with up to 10% decrease in measurement increase in measurement Recommend patients be collected for this test prior to administration of either drug. SGPT(ALT) 37 U/L 12-78 Normal (applies to non-numeric resul ts) [facility] Note the following drug interference: Sulfasalazine Sulfapyridine Can see falsely depressed Can see falsely elevated result with up to 29% results with up to 10% decrease in measurement increase in measurement Recommend patients be collected for this test prior to administration of either drug. Alkaline Phosphatase 67 U/L 38-126 Normal (applies to non-num dc results) [facility] can increase Alkaline Phosp le vels up to 2 times the normal adult value. Normal values for children and adolescents are 2 to 3 times the normal adult value. Total Protein 6.0-8.2 Normal (applies to non-numeric re sults) [facility] Albumin Level 3.4-5.0 Normal (applies to non-numeric re sults) [facility] ID Date Data Source [id number] 05/14/2020 02:56:00 PM [facility] Name Value Range Interpretation Code Description Data Luzmaria rce(s) Supporting Document(s) Triglycerides 252 mg/dL <150 Above high normal [facility] Cholesterol 183 mg/dL 100-200 Normal (applies to non-numeric resu lts) [facility] LDL Cholesterol Calculated 71 0-130 Normal (applies to n on-numeric results) [facility] HDL Cholesterol 62 mg/dL 40-60 Above high normal [facility] Cholesterol/HDL Ratio 3.6-6.7 Below low normal [facility] ID Date Data Source [id number] 05/14/2020 02:56:00 PM [facility] Name Value Range Interpretation Code Description Data Luzmaria rce(s) Supporting Document(s) Free T4 (Free Thyroxine) 0.76-1.46 Normal (applies to non -numeric results) [facility] ID Date Data Source [id number] 05/14/2020 02:56:00 PM [facility] Name Value Range Interpretation Code Description Data Luzmaria rce(s) Supporting Document(s) Thyroid Stimulate Hormone TSH 0.358-3.74 No rmal (applies to non-numeric results) [facility] ID Date Data Source [id number] 05/21/2020 08:39:00 AM [facility] Imaging Services Department Imaging Report [address], [place] [address] %(RAD)RES..mtdd.print.filter("line") Name: IRENE ZAVALETA : 1980 Age/Sex: 39F Ordering Provider: LUIS Duvall Med Rec #: [id number] Reg Status: DEP REF Room #: Date of Service: 05/14/20 Report Number: [id number] cc:LUIS Duvall Send Report To: [id number] XRP/XR Chest 2 View [Pa & Lat] [...] Date/Time: 05/19/20 1543 Transcribed Date/Time: 05/21/20 0839 Asbestos Cloth Inspector: FAWAD Name Value Range Interpretation Code Description Data Luzmaria rce(s) Supporting Document(s) ID Date Data Source [id number] 05/14/2020 11:37:00 AM EST [facility] Name Value Range Interpretation Code Description Data Luzmaria rce(s) Supporting Document(s) Thyroid Stimulating Hormone 1.494 [facility] ([facility]) Creatine kinase [Enzymatic activity/volume] in Serum or Plasma 59 41-270 [facility] ([facility]) ID Date Data Source [id number] 05/14/2020 11:37:00 AM EST [facility] ([facility] Name Value Range Interpretation Code Description Data Luzmaria rce(s) Supporting Document(s) HDL 62 40-60 [facility] Triglycerides 252 [facility] ([facility] Cholesterol 183 120-200 [facility] Chol/HDL Ratio 3.0 [facility] ([facility] Cholesterol in LDL [Mass/volume] in Serum or Plasma by calculation 71 [facility] ([facility]) ID Date Data Source [id number] 05/14/2020 11:37:00 AM EST [facility] ([facility] Name Value Range Interpretation Code Description Data Luzmaria rce(s) Supporting Document(s) Albumin [Mass/volume] in Serum or Plasma 3.9 [facility] ([facility]) Alanine aminotransferase [Enzymatic activity/volume] in Serum or Pl asma 37 [facility] ([facility]) Carbon dioxide, total [Moles/volume] in Serum or Plasma 26.3 [facility] ([facility]) Chloride [Moles/volume] in Serum or Plasma 101 [facility] ([facility]) Calcium [Mass/volume] in Serum or Plasma 8.0 [facility] ([facility]) Alkaline phosphatase [Enzymatic activity/volume] in Serum or Plasma 6 7 [facility] ([facility]) Protein [Mass/volume] in Serum or Plasma 7.1 [facility] ([facility]) Potassium [Moles/volume] in Serum or Plasma 3.1 [facility] ([facility]) Aspartate aminotransferase [Enzymatic activity/volume] in Serum or Plasma 33 [facility] ([facility]) Sodium 139 [facility] Glucose 82 70-100 [facility] Urea nitrogen [Mass/volume] in Serum or Plasma 13 [facility] ([facility]) Creatinine For GFR 0.7 [facility] ([facility]) ID Date Data Source [id number] 05/14/2020 11:37:00 AM EST [facility] ([facility]) Name Value Range Interpretation Code Description Data Luzmaria rce(s) Supporting Document(s) Red Blood Count 4.29 4.70-6.20 [facility] ([facility]) White Blood Count 5.7 4.3-10.9 [facility] ([facility]) Platelets 71 130-400 [facility] ([facility]) Hemoglobin 14.6 13.0-17.0 [facility] ([facility]) Hematocrit 42.1 39.0-50.0 [facility] ([facility]) ID Date Data Source [id number] 04/30/2020 12:00:00 AM EDT [facility] Name Value Range Interpretation Code Description Data Luzmaria rce(s) Supporting Document(s) SARS coronavirus 2 RNA [facility] This lab was ordered by [employer] and rep orted by [facility]. Procedure Social History Code Duration Value Status Description Data Source(s ) Smoking 10/14/2020 12:00:00 AM EDT Patient has never smoked co mpleted Patient has never smoked [facility] ([facility]) Vital Signs ID Date Data Source UNK Name Value Range Interpretation Code Description Data Source(s) Body mass index (BMI) [Ratio] 32.69 kg/m2 32.69 kg/m2 [facility] Systolic blood pressure 137 mm[Hg] 137 mm[Hg] [facility] Diastolic blood pressure 87 mm[Hg] 87 mm[Hg] [facility] Body surface area Derived from formula 2.16 m2 2.16 m2 [facility] Body height 172.7200 cm 172.7200 cm [facility] Oxygen saturation in Arterial blood by Pulse oximetry 98 % 98 % [facility] Heart rate 98.0 /min 98.0 /min [facility] Respiratory rate 18 /min 18 /min [facility] Body temperature 36.8 Madonna 36.8 Madonna [facility] Body weight 97.52 kg 97.52 kg [facility] Body weight 214.00 [lb_av] 214.00 [lb_av] [facility] ([facility]) Body height 68 [in_i] 68 [in_i] [facility] ([facility]) 5'8" Body mass index (BMI) [Ratio] 32.5 kg/m2 32.5 k g/m2 [facility] ([facility]) Systolic blood pressure--sitting 136 mm[Hg] 136 mm[Hg] [facility] ([facility]) Ra, large cuff Diastolic blood pressure--sitting 84 mm[Hg] 84 mm[Hg] [facility] ([facility]) Ra, large cuff Body height 68 [in_i] 68 [in_i] [facility] ([facility]) 5'8" Body mass index (BMI) [Ratio] 30.9 kg/m2 30.9 k g/m2 [facility] ([facility]) Heart rate 89 /min 89 /min [facility] ([facility]) Systolic blood pressure--sitting 100 mm[Hg] 100 mm[Hg] [facility] ([facility]) Omron large cuff, Ra Diastolic blood pressure--sitting 74 mm[Hg] 74 mm[Hg] [facility] ([facility]) Omron large cuff, Ra Body weight 203.00 [lb_av] 203.00 [lb_av] [facility] T ([facility]) Systolic blood pressure 142 mm[Hg] 142 mm[Hg] [facility] ([facility]) Diastolic blood pressure 78 mm[Hg] 78 mm[Hg] [facility] ([facility]) Body height 58 [in_i] 58 [in_i] [facility] ([facility]) 4'10" Body weight 203.50 [lb_av] 203.50 [lb_av] [facility] ([facility]) Body mass index (BMI) [Ratio] 42.5 kg/m2 42.5 k g/m2 [place] ([facility]) [place] body weight 100 [lb_av] 100 [lb_av] [facility] T ([facility]) Body weight 92.308 kg 92.308 kg [facility] ([facility]) Body surface area Derived from formula 1.83 m2 1.83 m2 [facility] ([facility]) Body weight 197.00 [lb_av] 197.00 [lb_av] [facility] ([facility]) Body height 68 [in_i] 68 [in_i] [facility] ([facility]) 5'8" Body mass index (BMI) [Ratio] 30.0 kg/m2 30.0 k g/m2 [facility] ([facility]) Heart rate 89 /min 89 /min [facility] ([facility]) Systolic blood pressure--sitting 128 mm[Hg] 128 mm[Hg] [facility] ([facility]) Omron, adult cuff/Ra Diastolic blood pressure--sitting 95 mm[Hg] 95 mm[Hg] [facility] ([facility]) Omron, adult cuff/Ra Patient Treatment Plan of Care Planned Activity Planned Date Details Description Data Source (s) buspirone hydrochloride 7.5 MG Oral Tablet 04/09/2021 12:00:00 AM E [facility] Trazodone Hydrochloride 50 MG Oral Tablet 04/09/2021 12:00:00 AM ED [facility] Levothyroxine Sodium 0.088 MG Oral Tablet 06/03/2020 12:00:00 AM [facility] Levothyroxine Sodium 0.088 MG Oral Tablet 05/10/2019 12:00:00 AM [facility]
[2021-04-29 13:21] LABS: ALBUMIN 4.8 GM/DL (3.2-5.2); ALT/SGPT 62 U/L (12-78); BILIRUBIN,DIRECT 0.4 MG/DL (0.0-0.2); BILIRUBIN,TOTAL 1.4 MG/DL (0.2-1.0); CK-MB VALUE MASS < 1.0 NG/ML (<3.6); CPK CREATINE PHOSPHOKINASE 33 U/L (26-192); LIPASE 3741 U/L (73-393); MB/CK RELATIVE INDEX 3.03 (< OR =4); TOTAL PROTEIN 8.4 GM/DL (6.4-8.2); TROPONIN I < 0.02 NG/ML (< 0.10)
[2021-04-29 13:23] LABS: HCG, SERUM QUALITATIVE NEGATIVE (NEGATIVE)
--- NOTE | 2021-04-29 13:37 | REP ---
INDICATION: CHEST PAIN. COMPARISON: 09/08/2020. TECHNIQUE: Single portable AP view of the chest was performed. FINDINGS: There is no acute infiltrate or pulmonary edema. There is mild bibasilar fibro atelectatic change.. The heart is not significantly enlarged. The mediastinal silhouette is unremarkable. The visualized osseous structures are intact. IMPRESSION: No acute pulmonary disease. <Electronically signed by Yovanny Contreras > 04/29/21 [id number]
[2021-04-29] MEDS ORDERED: KETOROLAC 30 MG/ML 1ML VIAL IV ONE (14:15)
--- NOTE | 2021-04-29 14:35 | REP ---
INDICATION: abd pain. COMPARISON: Multiple the latest standard contrast-enhanced examination 09/12/2020 TECHNIQUE: Standard helical technique without intravenous or oral bowel preparatory contrast administration. FINDINGS: The small left pleural effusion seen previously has resolved. The bibasilar subsegmental atelectatic changes suspected on the prior exam of resolved. There are only a few left lower lobe asymmetric densities consistent with subsegmental atelectatic change. Diffuse low densities seen throughout the hepatic parenchyma consistent with fatty infiltration of the liver. The spleen, adrenal glands, and kidneys essentially unchanged and again seen to be within normal limits. Once again, there is diffuse peripancreatic fatty infiltration with a small amount of fluid in the anterior pararenal space and in the right paracolic gutter with thickening of Zuckerekandl fascia bilaterally. A small amount of fluid seen previously in the lesser sac has resolved. All aforementioned findings have improved. There is a trace amount of free fluid in the pelvis. This has improved. Limited evaluation of the bowel loops and the mesenteries show no new abnormalities. The abdominal aorta and para-aortic regions are essentially unchanged and again seen to be within normal limits. There is no change in the osseous structures. IMPRESSION: 1. Resolving pancreatitis. 2. Diffuse fatty infiltration of the liver. 3. Mm sized left nephroliths unchanged from the prior exam and not causing obstructive phenomena. 4. Other findings as described above. <Electronically signed by Brett Maynard > 04/29/21 [id number]
[2021-04-29 15:11] LABS: ETHYL ALCOHOL (ETHANOL) < 0.003 % (0.000-0.010)
[2021-04-29] MEDS ORDERED: MORPHINE 2 MG/ML 1ML VIAL (J2270) IV ONE (15:55)
[2021-04-29] MEDS ORDERED: HYDR-3713 PO (15:59)
[2021-04-29] MEDS ORDERED: ZOFR4TAB16 PO (15:59)
[2021-04-29 16:29] LABS: AMPHETAMINES LEVEL URINE NEGATIVE (NEGATIVE); BARBITURATES URINE NEGATIVE (NEGATIVE); BENZODIAZEPINES URINE POSITIVE (NEGATIVE); CANNABINOIDS URINE NEGATIVE (NEGATIVE); COCAINE METABOLITE URINE NEGATIVE (NEGATIVE); METHADONE URINE NEGATIVE (NEGATIVE); OPIATES URINE POSITIVE (NEGATIVE); PHENCYCLIDINE URINE NEGATIVE (NEGATIVE)
[2021-04-29 16:45] VITALS: BP 138/100
[2021-04-30] MEDS ORDERED: CLON0.5T2 PO (06:38)
[2021-04-30] MEDS ORDERED: SYNT75TA PO (06:38)
[2021-04-30] MEDS ORDERED: LISI20TA33 PO (06:38)
[2021-04-30] MEDS ORDERED: HYDR-4571 PO (06:38)
[2021-04-30] MEDS ORDERED: ZOFR4TAB16 PO (06:38)
[2021-04-30] MEDS ORDERED: FENO48TA8 PO (06:38)
[2021-04-30] MEDS ORDERED: BUSP1TAB PO (06:39)
[2021-04-30] MEDS ORDERED: TRAZ-186 PO (06:39)
[2021-04-30] MEDS ORDERED: CEFD300CAP PO (06:39)
--- NOTE | 2021-04-30 20:05 | ECGEPIP ---
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
== END 2021-04-29 16:56 | disposition home or self-care (01) ==
LOC: M ED 11:56
DX: K85.90 Acute pancreatitis without necrosis or infection, unspecified (principal); R11.2 Nausea with vomiting, unspecified; I10 Essential (primary) hypertension; K21.9 Gastro-esophageal reflux disease without esophagitis; E07.9 Disorder of thyroid, unspecified; Z87.442 Personal history of urinary calculi; K76.0 Fatty (change of) liver, not elsewhere classified; Z91.040 Latex allergy status
CPT/HCPCS: 71045; 74176; 80047; 80076; 80307; 81001; 82077; 82550; 82553; 83690; 84484; 84703; 85025; 85049; 85055; 93005; 93041; 94760; 96374; 99285; J1885; J2270; J2405

== ENCOUNTER 2021-04-29 21:05 | Emergency (ER) | payer OTHER ==
[~2021-04-29] VITALS: Ht 172.7 cm; Wt 83.6 kg
[~2021-04-29 21:05] MED LIST changes: +CLON0.5T2; +HYDR-3713 PO; +LISI20TA33; +ZOFR4TAB16 PO
[2021-04-29 21:06] VITALS: BP 167/107
--- OUTSIDE RECORDS SUMMARY | 2021-04-29 22:09 | CCD ---
Author Author [facility] Organization [facility] Address Unknown Phone Unavailable Care Team Providers Care Adult Psychiatrist Name Role Phone Servage, L Roxy SILK EXAMINER Unavailable Unavailable Servage, L Roxy SILK EXAMINER Unavailable Unavailable Servage, L Roxy SILK EXAMINER Unavailable Unavailable Servage, L Roxy SILK EXAMINER Unavailable Unavailable Servage, L Roxy SILK EXAMINER Unavailable Unavailable Servage, L Roxy SILK EXAMINER Unavailable Unavailable Servage, L Roxy SILK EXAMINER Unavailable Unavailable Servage, L Roxy SILK EXAMINER Unavailable Unavailable Servage, L Roxy SILK EXAMINER Unavailable Unavailable Servage, L Roxy SILK EXAMINER Unavailable Unavailable Servage, L Roxy SILK EXAMINER Unavailable Unavailable Servage, L Roxy SILK EXAMINER Unavailable Unavailable Servage, L Roxy SILK EXAMINER Unavailable Unavailable Servage, L Roxy SILK EXAMINER Unavailable Unavailable Servage, L Roxy SILK EXAMINER Unavailable Unavailable Servage, L Roxy SILK EXAMINER Unavailable Unavailable Servage, L Roxy SILK EXAMINER Unavailable Unavailable Servage, L Roxy SILK EXAMINER Unavailable Unavailable Servage, L Roxy SILK EXAMINER Unavailable Unavailable Servage, L Roxy SILK EXAMINER Unavailable Unavailable Servage, L Roxy SILK EXAMINER Unavailable Unavailable Servage, L Roxy SILK EXAMINER Unavailable Unavailable Servage, L Roxy SILK EXAMINER Unavailable Unavailable Servage, L Roxy SILK EXAMINER Unavailable Unavailable Servage, L Roxy SILK EXAMINER Unavailable Unavailable Servage, L Roxy SILK EXAMINER Unavailable Unavailable Servage, L Roxy SILK EXAMINER Unavailable Unavailable Servage, L Roxy SILK EXAMINER Unavailable Unavailable Servage, L Roxy SILK EXAMINER Unavailable Unavailable Servage, L Roxy SILK EXAMINER Unavailable Unavailable Servage, L Roxy SILK EXAMINER Unavailable Unavailable Servage, L Roxy SILK EXAMINER Unavailable Unavailable Servage, L Roxy SILK EXAMINER Unavailable Unavailable Servage, L Roxy SILK EXAMINER Unavailable Unavailable Servage, L Roxy SILK EXAMINER Unavailable Unavailable Servage, L Roxy SILK EXAMINER Unavailable Unavailable Servage, L Roxy SILK EXAMINER Unavailable Unavailable Servage, L Roxy SILK EXAMINER Unavailable Unavailable Servage, L Roxy SILK EXAMINER Unavailable Unavailable Servage, L Roxy SILK EXAMINER Unavailable Unavailable Servage, L Roxy SILK EXAMINER Unavailable Unavailable Servage, L Roxy SILK EXAMINER Unavailable Unavailable Servage, L Roxy SILK EXAMINER Unavailable Unavailable Servage, L Roxy SILK EXAMINER Unavailable Unavailable Servage, L Roxy SILK EXAMINER Unavailable Unavailable Servage, L Roxy SILK EXAMINER Unavailable Unavailable Servage, L Roxy SILK EXAMINER Unavailable Unavailable Servage, L Roxy SILK EXAMINER Unavailable Unavailable Servage, L Roxy SILK EXAMINER Unavailable Unavailable Servage, L Roxy SILK EXAMINER Unavailable Unavailable Servage, L Roxy SILK EXAMINER Unavailable Unavailable Servage, L Roxy SILK EXAMINER Unavailable Unavailable Servage, L Roxy SILK EXAMINER Unavailable Unavailable Servage, L Roxy SILK EXAMINER Unavailable Unavailable Servage, L Roxy SILK EXAMINER Unavailable Unavailable Servage, L Roxy SILK EXAMINER Unavailable Unavailable Servage, L Roxy SILK EXAMINER Unavailable Unavailable Servage, L Roxy SILK EXAMINER Unavailable Unavailable Servage, L Roxy SILK EXAMINER Unavailable Unavailable Servage, L Roxy SILK EXAMINER Unavailable Unavailable Servage, L Roxy SILK EXAMINER Unavailable Unavailable Servage, L Roxy SILK EXAMINER Unavailable Unavailable Servage, L Roxy SILK EXAMINER Unavailable Unavailable Servage, L Roxy SILK EXAMINER Unavailable Unavailable Servage, L Roxy SILK EXAMINER Unavailable Unavailable Chandni, L Lo PA Unavailable [...] Shanti VALDEZ MD Unavailable Unavailable ANTECOL, Shanti VALEDZ MD Unavailable Unavailable ANTECOL, Shanti VALDEZ MD [...] Shanti VALDEZ MD Unavailable Unavailable ANTECOL, Shanti VLADEZ MD Unavailable Unavailable ANTECOL, Shanti VALDEZ MD [...] Unavailable Chandni, L Ol PA Unavailable Unavailable Juan Miguel Collins JR, [...] Miguel Collins JR, MD Unavailable Unavailable Juan Migeul Collins JR, MD Unavailable Unavailable Juan Miguel [...] is protected by Article 27-F of the [facility] Public Health law. If you continue you may have access to information: Regarding HIV / AIDS; Provided by facilities licensed or operated by the [facility] Office of Mental Health; or Provided by the [facility] Office for People With Developmental Disabilities. If such information is present, then the following [facility] mandated warning applies: This information has been [...] law may result in a fine or mcc sentence or both. A general authorization for the release of medical or other information is NOT sufficient authorization for further disc losure. Allergies and Adverse Reactions Type Description Substance Reaction Status Data Source(s ) Environmental Allergy LATEX LATEX [facility] Family History Family Member Name Family Member Gender Family Member Status Date o f Status Description Data Source(s) Unknown Male Problem [facility] ([facility]) Unknown Unknown Problem [facility] ([facility], [facility]) mother,mgm Encounters Encounter Providers Location Date Indications Data Source(s ) Outpatient Attender: Lo SMITH Admitter: Lo Tariq PAReferrer: Lo Tariq PAConsultant: Lo SMITH 04/08 02:11:00 PM EDT - 04/08/2021 11:00:00 AM EDT [facility] PATIENT [facility] NEW PATIENT Patient discharged. Outpatient Attender: MARIS SMITH Main Office 04/08/2021 0 8:00:00 AM EDT [facility] ([facility]) Outpatient Attender: Steven MosherAttender: STEVEN MOSHER 07A -[id number] 01/08/2021 12:00:[address] [facility] Outpatient Attender: Lo SMITH ED-HCCED[facility]PCP 01/2021 09:20:00 AM EDT - 01/07/2021 09:21:[address] [facility] Patient discharged. Outpatient Attender: Lo SMITH -HCCEDWPCP 07/2020 03:30:00 PM EDT - 12/02/2020 03:31:[address] [facility] Patient discharged. Outpatient Attender: STEVEN MOSHER 11/26/2020 12:00:00 AM [facility] Outpatient Attender: JOSÉ MIGUEL NEGRON MD Main Office 10/14/2020 08:00:00 AM EDT [facility] ([facility]) Outpatient Attender: Lo SMITH -HCCEDWPC 01/2021 04:15:00 PM EDT - 10/08/2020 04:16:00 PM EDT [facility] Patient discharged. Outpatient Attender: Car Smalls/Breanna/Lorenzo/Caity andujar 10/06/2020 01:15:00 PM EDT [facility] ([facility], ) Outpatient Attender: Lo Tariq [place] ED-HCCEDWPC 07:03:00 AM EDT - 2020 07:04:00 AM EDT [facility] Patient discharged. Outpatient Attender: JOSÉ MIGUEL NEGRON MD Main Office 08/01/2020 09:45:00 AM EST [facility] ([facility] Outpatient Attender: Lo [facility] 04/2020 01:22:00 PM EST - 06/12/2020 01:23:00 PM EST [facility] Patient discharged. Outpatient Attender: Lo Tariq [facility] 03/2020 07:49:00 AM EST - 06/11/2020 07:50:00 AM [facility] Patient discharged. Emergency Attender: PITA Pearsonsuant: Royx sanchez SILK EXAMINER 06/09/2020 12:49:00 PM EST - 06/09/2020 06:15:00 PM EST [facility] Patient discharged. Outpatient Attender: Lo Tariq [facility] 01/2020 12:41:00 PM EST - 06/09/2020 12:42:00 PM [facility] Patient discharged. Outpatient Attender: Lo Tariq [place] [facility] 10/2019 01:36:00 PM EST - 06/06/2020 01:37:00 PM [facility] Patient discharged. Outpatient Attender: Lo SMITH [facility] 03:20:00 PM EST - 05/26/2020 03:21:00 PM [facility] Patient discharged. Outpatient Attender: Lo SMITH [facility] 06/2020 07:31:00 AM EST - 05/15/2020 07:32:00 AM EST [facility] Patient discharged. Outpatient Attender: UNKNOWN CPSCAORT-LABEJN 05/14/2020 03:12:00 PM E [facility] Outpatient Attender: Lo SMITH ED-LABGH 05/2020 12:17:00 PM EST - 05/14/2020 12:18:00 PM EST I10 E03.9 [facility] I10 E03.9 Patient discharged. Outpatient Attender: Lo SMITH -HCCEDWPCP 01:47:00 PM EDT - 04/21/2020 01:48:00 PM EDT [facility] Patient discharged. Medications Medication Brand Name Start Date Product Form Dose Route Admi nistrative Instructions Pharmacy Instructions Status Indications Reaction Description Data Source(s) 300 mg 04/20/2021 12:00:00 AM EDT capsule 20 TAKE ONE CAPSULE BY MOUTH EVERY 12 HOURS FOR 10 DAYS TAKE ONE CAPSULE BY MOUTH EVERY 12 HOURS FOR 10 DAYS S OLD: 04/20/2021 [facility] [facility] buspirone hydrochloride 7.5 MG Oral Tablet busPIRone H Cl 7.5MG Oral Tablet busPIRone HCl 7.5MG Oral Tablet 04/09/2021 12:00:00 AM EDT 1 TABLET BY MOUTH active <td>busPIRone H Cl 7.5MG Oral Tablet</td><td>04/09/2021</td><td>Unknown</td><td>BY MOUTH</td><td>TWICE A DAY</td><td>1 TABLET</td><td>424884</td><td>RxNorm</td><td>TAKE 1 TABLET BY MOUTH TWICE A DAY NEEDED</td> [facility] 7.5 mg 04/09/2021 12:00:00 AM [...] <td>traZOD one hydrochloride 50MG Oral Tablet</td><td>04/09/2021</td><td>Unknown</td><td>BY MOUTH</td><td>AT BEDTIME</td><td></td><td>162058</td><td>RxNorm</td><td>TAKE 1-2 TABLET BY MOUTH AT BEDTIME</td> [facility] 50 mg 04/09/2021 12:00:00 AM EDT tablet 60 TAKE 1 TO 2 TABLETS BY MOUTH AT BEDTIME TAKE 1 TO 2 TABLETS BY MOUTH AT BEDTIME SOLD: 04/09/2021 [facility] Lisinopril 20 MG Oral Tablet Lisinopril 04/08/2021 12:00:00 AM EDT ORAL active [facility] ([facility] 20 mg 04/08/2021 12:00:00 AM EDT tablet 90 TAKE ONE TABLET BY MOUTH EVERY DAY TAKE ONE TABLET BY MOUTH EVERY DAY SOLD: 04/09/2021 [facility] Amlodipine 5 MG Oral Tablet Amlodipine Besylate 04/07/2021 12:00:00 A M EDT ORAL completed [facility] ([facility] Fenofibrate 48 MG Oral Tablet Fenofibrate 04/07/2021 12:00:00 AM EDT ORAL active [facility] ([facility] 0.5 mg 03/29/2021 12:00:00 AM EDT tablet 60 TAKE ONE TABLET BY MOUTH TWICE A DAY MAXIMUM DAILY DOSE = 2 TAKE ONE TABLET BY MOUTH TWICE A DAY MAX IMUM DAILY DOSE = 2 SOLD: 03/29/2021 [facility] 0.5 mg 02/28/2021 12:00:00 AM [...] ONCE DAILY IMMEDIATELY AFTER DISSOLVING SOLD: 11/13/2020 [facility] 200 mg 11/12/2020 12:00:00 AM EDT [...] MAXIMUM DAILY DOSE = 4 SOLD: 10/22/2020 [facility] Flax Seeds 10/14/2020 12:00:00 AM EDT active [facility] ([facility]) Simethicone 80 MG Chewable Tablet [Mi-Acid Gas Relief] MT-Ac id Gas Relief 10/13/2020 12:00:00 AM EDT ORAL completed [facility] ([facility]) 10 mg 10/13/2020 12:00:00 AM EDT tablet 30 TAKE ONE TABLET BY MOUTH EVERY 6 HOURS NEEDED MAXIMUM DAILY DOSE = 4 TAKE ONE TABLET BY MOUTH EVERY 6 HOURS A S NEEDED MAXIMUM DAILY DOSE = 4 SOLD: 10/13/2020 [employer] Fenofibrate 48 MG Oral Tablet Fenofibrate 10/13/2020 12:00:00 AM EDT ORAL completed [facility] ([facility]) Levothyroxine Sodium 0.075 MG Oral Tablet Levothyroxine Sodi um 10/13/2020 12:00:00 AM EDT ORAL active M [facility] ([facility]) 24 HR Propranolol Hydrochloride 120 MG Extended Releas e Oral Capsule Propranolol HCL ER 10/13/2020 12:00:00 AM EDT ORAL completed [facility] ([facility]) 75 mcg 10/09/2020 12:00:00 AM EDT [...] TWICE A DAY WITH MEALS SOLD: 09/18/2020 [employer] Metronidazole 500 MG Oral Tablet METRONIDAZOLE 09/18/2020 [...] AM EST completed [facility] ([facility]) 24 HR Desvenlafaxine 25 MG Extended Release Oral Table t Desvenlafaxine Succinate ER 08/01/2020 12:00:00 AM EST ORAL completed [facility] ([facility]) doxycycline hyclate 100 MG Oral Tablet Doxycycline Hyclate 0 07/31/2020 12:00:00 AM EST ORAL completed [facility] ([facility]) Levothyroxine Sodium 0.088 MG Oral Tablet Levothyroxine Sodi um 07/31/2020 12:00:00 AM EST ORAL completed [facility] ([facility]) 24 HR Desvenlafaxine 50 MG Extended Release Oral Table t Desvenlafaxine Succinate ER 07/31/2020 12:00:00 AM EST ORAL completed [facility] ([facility]) Spironolactone 25 MG Oral Tablet Spironolactone 07/31/2020 12:00:00 A M EST ORAL active [facility] ([facility] 88 mcg 07/08/2020 12:00:00 AM EST [...] hypothyroidism Take 1 tablet by mouth Daily [facility] Other specified hypothyroidism 88 mcg 06/03/2020 12:00:00 [...] THREE TIMES A DAY NEEDED SOLD: 07/08/2020 [facility] Alprazolam 0.25 MG Oral Tablet ALPRAZOLAM [...] CAPSULE BY MOUTH EVERY DAY SOLD: 04/21/2020 [employer] Alprazolam 0.25 MG Oral Tablet ALPRAZOLAM 04/21/2020 [...] 1 TABLET AFTER 1-2 WEEKS SOLD: 04/21/2020 [facility] 88 mcg 05/10/2019 12:00:00 AM EST tablet 30 TAKE 1 TABLET BY MOUTH DAILY TAKE 1 TABLET BY MOUTH DAILY SOLD: 03/15/2020 [facility] Levothyroxine Sodium 0.088 MG Oral Table t Levothyroxine Sodium 88 MCG Oral Tablet (SYNTHROID, LEVOTHROID) Levothyroxine Sodium 88 MCG Oral Tablet (SYNTHROID, LEVOTHROID) 05/10/2019 12:00:00 AM EST 88 ug Oral active Other specified hypothyroidism Take 1 tablet by mouth Daily [facility] Other specified hypothyroidism 88 mcg 05/10/2019 12:00:00 AM EST tablet 30 TAKE 1 TABLET BY MOUTH DAILY TAKE 1 TABLET BY MOUTH DAILY SOLD: 04/20/2020 [facility] Insurance Providers Payer name Policy type / Coverage type Policy ID Covered constitution party ID Covered constitution party's relationship to james Policy James Plan Information BS Lucas Trad/MX Commercial [id number] Family Dependent [id number] [facility] Trad/MX Commercial [id number] Family Dependent 802 [employer] [id number] SP [id number] [employer] [id number] SP [id number] [employer] [id number] [employer] [id number] Self [id number] R U [id number] Self [id number] 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 [id number] Self [id number] Commercial [id number] Self [id number] ANSI-Not a Secondary Insurance [id number] [facility] [id number] SP [id number] [facility] [id number] SP [id number] [employer] Ppo Commercial [id number] Self [id number] [employer]OM[employer]-O/P [id number] 18 [id number] [employer] Ppo Commercial [id number] Self [id number] [employer] Commercial [id number] Self [employer] PPO P [id number] S [id number] [employer] [id number] SP [id number] UMR-CLINIC [id number] undefined [id number] UMR [id number] S [id number] UMR -O/P [id number] 18 [id number] [facility] [id number] SP [id number] BS [facility] [id number] [facility] [id number] [facility] Commercial [id number] Self [id number] [facility] Commercial [id number] Self [id number] [facility] Commercial [id number] Self [id number] Problems, Conditions, and Diagnoses Code Display Name Description Problem Type Effective Dates Data Source(s) F411 Generalized anxiety disorder Generalized anxiety disor brandie Diagnosis 04/08/2021 02:11:00 PM EDT [facility] D693 Immune thrombocytopenic purpura Immune thrombocytopeni c purpura Diagnosis 04/08/2021 02:11:00 PM EDT [facility] R609 Edema, unspecified Edema, unspecified Diagnosis 02:11:00 PM EDT [facility] E039 Hypothyroidism, unspecified Hypothyroidism, unspecifie d Diagnosis 04/08/2021 02:11:00 PM EDT [facility] E782 Mixed hyperlipidemia Mixed hyperlipidemia Diagnosis 04/08/2021 02:11:00 PM EDT [facility] I10 Essential (primary) hypertension Essential (primary) h ypertension Diagnosis 04/08/2021 02:11:00 PM EDT [facility] R002 Palpitations Palpitations Diagnosis 04/08/2021 02:11:00 P M EDT [facility] [id number] Latex allergy status Latex allergy status Diagnosis 06/09/2020 12:49:00 PM [facility] Z9049 Acquired absence of other specified part s of digestive tract Acquired absence of other specified parts of digestive tract Diagnosis 12:49:00 PM [facility] E039 Hypothyroidism, unspecified Hypothyroidism, unspecifie d Diagnosis 06/09/2020 12:49:00 PM [facility] I10 Essential (primary) hypertension Essential (primary) h ypertension Diagnosis 06/09/2020 12:49:00 PM [facility] E869 Volume depletion, unspecified Volume depletion, unspec ified Diagnosis 06/09/2020 12:49:00 PM [facility] E860 Dehydration Dehydration Diagnosis 06/09/2020 12:49:00 PM [facility] N3001 Acute cystitis with hematuria Acute cystitis with elena turia Diagnosis 06/09/2020 12:49:00 PM [facility] A084 Viral intestinal infection, unspecified Viral intestinal infection, unspecified Diagnosis 06/09/2020 12:49:00 PM [facility] R1030 Lower abdominal pain, unspecified Lower abdomina l pain, unspecified Diagnosis 06/09/2020 12:49:00 PM [facility] I10 Essential (primary) hypertension ESSENTIAL (PRIMARY) H YPERTENSION Diagnosis [facility] Hypothy[facility], unspecified HYPOTHYROIDISM, UNSPECIFIE D Diagnosis 04/21[facility] D[facility].3 Immune thrombocytopenic purpura IMMUNE THROMBOCYTOPENI C PURPURA Diagnosis 04/21/2020 01:47:[address] [facility] F41.0 Panic disorder [episodic paroxysmal anxi ety] PANIC DISORDER [EPISODIC PAROXYSMAL ANXIETY] Diagnosis 04/21/2020 01:47:00 PM [facility] F41.1 Generalized anxiety disorder GENERALIZED ANXIETY DISOR BRANDIE Diagnosis 04/21/2020 01:47:[address] [facility] R60.0 Edema Edema Problem 04/08/2021 12:00:00 AM ED T [facility] ([facility]) E78.1 Pure hyperglyceridemia Pure hyperglyceridemia Problem 10/14/2020 12:00:00 AM EDT [facility] ([facility]) [id number] Essential hypertension Essential hypertension Problem 09/29/2020 12:00:00 AM EDT [facility] ([facility], ) E78.5 Hyperlipidemia Hyperlipidemia Problem 08/01/2020 12:00: 00 AM EST [facility] ([facility]) F41.1 Generalized anxiety disorder Generalized anxiety disor brandie Problem 08/01/2020 12:00:00 AM EST [facility] ([facility]) R23.2 Flushing Flushing Problem 08/01/2020 12:00:00 AM ES T [facility] ([facility]) I10 Essential hypertension Essential hypertension Problem 08/01/2020 12:00:00 AM EST [facility] ([facility]) Z71.3 Dietary management surveillance Dietary management anna veillance Problem 08/01/2020 12:00:00 AM EST [facility] ([facility]) E66.09 Obesity Obesity Problem 08/01/2020 12:00:00 AM ES T [facility] ([facility]) R00.2 Palpitations Palpitations Problem 08/01/2020 12:00:00 A M EST [facility] ([facility]) Surgeries/Procedures Procedure Description Date Indications Data Source(s) OFFICE OUTPATIENT VISIT 15 MINUTES 04/08/2021 12:00:00 AM EDT [facility] ([facility]) External ECG Rec>48HR<7D Recording 03/24/2021 12:00:00 AM [facility] External ECG Rec>48HR<7D Review & Interpretation 03/24 12:00:00 AM EDT [facility] ([facility]) OFFICE OUTPATIENT VISIT 15 MINUTES 10/14/2020 12:00:00 AM [facility] ECG ROUTINE ECG W/LEAST 12 LDS W/I&R 08/01/2020 12:00: 00 AM EST [facility] 25342 X-RAY EXAM CHEST 2 VIEWS 05/14/2020 12:00:00 AM [facility] ECG ROUTINE ECG W/LEAST 12 LDS TRCG ONLY W/O I&R ELECTROCARD IOGRAM TRACING 05/14/2020 12:00:00 AM [facility] THYROGLOBULIN ANTIBODY THYROGLOBULIN ANTIBODY 05/14/2020 12:00:00 A M [facility] MICROSOMAL ANTIBODIES EACH MICROSOMAL ANTIBODY EACH 05/14/2020 1 2:00:00 AM [facility] THYROXINE FREE ASSAY OF FREE THYROXINE 05/14/2020 12:00:00 AM [facility] THYROID STIMULATING HORMONE TSH ASSAY THYROID STIM HORMONE 1 07/14/2019 12:00:00 AM [facility] SUSCEPTIBLTY STDY ANTIMICRBIAL MICRO/AGAR DILUTJ MICROBE NAOMIE CEPTIBLE ANSHU 05/14/2020 12:00:00 AM [facility] URNLS DIP STICK/TABLET REAGENT AUTO MICROSCOPY URINALYSIS AU TO W/SCOPE 05/14/2020 12:00:00 AM [facility] COLLECTION VENOUS BLOOD VENIPUNCTURE ROUTINE VENIPUNCTURE 12:00:00 AM [facility] BLOOD COUNT COMPLETE AUTO&AUTO DIFRNTL WBC COUNT COMPLETE CB C W/AUTO DIFF WBC 05/14/2020 12:00:00 AM [facility] THYROXINE TOTAL ASSAY OF TOTAL THYROXINE 05/14/2020 12:00:00 AM [facility] CREATINE KINASE TOTAL ASSAY OF CK (CPK) 05/14/2020 12:00:00 AM [facility] ALBUMIN URINE MICROALBUMIN QUANTIATIVE UR ALBUMIN QUANTITATI VE 05/14/2020 12:00:00 AM [facility] CREATININE OTHER SOURCE ASSAY OF URINE CREATININE 05/14/2020 12:00: 00 AM [facility] TRIIODOTHYRONINE T3 FREE FREE ASSAY (FT-3) 05/14/2020 12:00:00 AM E [facility] TRIIODOTHYRONINE T3 TOTAL TT3 ASSAY TRIIODOTHYRONINE (T3) 12:00:00 AM [facility] LIPID PANEL LIPID PANEL 05/14/2020 12:00:00 AM [facility] COMPREHENSIVE METABOLIC PANEL COMPREHEN METABOLIC PANEL 05/04 12:00:00 AM [facility] OFFICE OUTPATIENT VISIT 10 MINUTES OFFICE/OUTPATIENT VISIT E ST 04/21/2020 12:00:00 AM T [facility] Results ID Date Data Source 1 04/23/2021 12:00:00 AM EDT [facility] Name Value Range Interpretation Code Description Data Luzmaria rce(s) Supporting Document(s) SARS-CoV2 Rapid PCR Negative [facility] This lab was ordered by [facility] and reported by [facility]. ID Date Data Source [id number] 04/20/2021 12:00:00 AM EDT [facility] Name Value Range Interpretation Code Description Data Luzmaria rce(s) Supporting Document(s) SARS-CoV2 Rapid Antigen Negative [facility] This lab was ordered by [facility] and reported by [facility]. ID Date Data Source [id number] 04/08/2021 09:26:00 AM EDT [facility] ([facility] Name Value Range Interpretation Code Description Data Luzmaria rce(s) Supporting Document(s) Glucose, Fasting 93 mg/dL 70-100 [facility] ([facility]) Blood Urea Nitrogen 12 mg/dL 7-18 [facility] [facility] Creatinine For GFR 0.79 mg/dL 0.55-1.30 [facility] ([facility]) Sodium Level 140 meq/L 136-145 [facility]) Potassium Serum 3.7 meq/L 3.5-5.1 [facility] ([facility]) Glomerular Filtration Rate Laboratory test result [facility] ([facility]) <content>Units are mL/min/1.73 m2</content>
<content></content>
<content>Chronic Kidney Disease Staging per NKF:</content>
<content></content>
<content>Stage I & II GFR >=60 Normal to Mildly Decreased</content>
<content>Stage III GFR 30-59 Moderately Decreased</content>
<content>Stage IV GFR 15-29 Severely Decreased</content>
<content>Stage V GFR <15 Very Little GFR Left</content>
<content>ESRD GFR <15 on RIG SUPERVISOR</content>
<content></content> Anion Gap 10 meq/L 8-16 [facility] Carbon Dioxide Level 23 meq/L 21-32 [facility] ([facility] Chloride Level 107 meq/L 98-107 [facility] ([facility]) Calcium Level 8.8 mg/dL 8.5-10.1 [facility] ([facility]) ID Date Data Source [id number] 04/08/2021 09:26:00 AM EDT [facility] ([facility] Name Value Range Interpretation Code Description Data Luzmaria rce(s) Supporting Document(s) Natriuretic peptide.B prohormone N-Terminal [Mass/volu me] in Serum or Plasma 25 pg/mL [facility]) <content>note:<nlbl:demographic_changed> </content>
<content></content> ID Date Data Source [id number] 01/08/2021 01:27:05 PM EDT Health system Name Value Range Interpretation Code Description Data Luzmaria rce(s) Supporting Document(s) Progress Note [facility] [id number] lbm [file] [id number]== ID Date Data Source [id number] 01/08/2021 01:27:00 PM EDT Health system Name Value Range Interpretation Code Description Data Luzmaria rce(s) Supporting Document(s) Progress Note [facility] [id number] lbm [file] ID Date Data Source [id number] 09/14/2020 02:48:00 PM EDT [facility] Name Value Range Interpretation Code Description Data Luzmaria rce(s) Supporting Document(s) SARS-CoV-2 (COVID 19) NEGATIVE - SARS-CoV-2 (COVID19) [facility] This lab was ordered by [facility] a nd reported by [facility]. ID Date Data Source [id number] 09/08/2020 11:56:00 AM EST [facility] Name Value Range Interpretation Code Description Data Luzmaria rce(s) Supporting Document(s) SARS coronavirus 2 RNA [Presence] in Res piratory specimen by ANTONIO with probe detection NEGATIVE [facility] This lab was ordered by [facility] a nd reported by [facility]. ID Date Data Source [id number] 06/13/2020 12:00:00 AM EST [facility] Name Value Range Interpretation Code Description Data Luzmaria rce(s) Supporting Document(s) SARS-CoV2 Rapid Antigen [facility] This lab was ordered by [facility] and reported by [facility]. ID Date Data Source [id number] 06/09/2020 12:49:00 PM [facility] 1 OrderSheet [facility] Emergency Department [address] [place] [address] Phone #: [phone] kgw- [phone] 06/09/2020 12:39 Patient: IRENE OCHOA Sex: F [...] NV, elevated T bili,MEDICATION/IV/DRIP/FLUID ORDERS 2 OrderSheet [facility] Emergency Department [address] [place] [address] Phone #: ext- [phone] 06/09/2020 12:39 Patient: [...] rce(s) Supporting Document(s) ID Date Data Source [id number] 06/09/2020 12:49:00 PM EST [facility] 1 Medication Reconciliation Report [facility] Emergency Department [address] [place] [address] Phone #: ext- [phone] 06/09/2020 12:39 Patient: [...] rce(s) Supporting Document(s) ID Date Data Source [id number] 06/09/2020 12:49:00 PM EST [facility] 1 Medication Administration Record [facility] Emergency Department [address] [place] [address] Phone #: ext- [phone] 06/09/2020 12:39 Patient: IRENE OCHOA Sex: F : 1980 Age: 39yWeight: 82.5 kgHeight/Length: 68 inBMI: 27.7ALLERGIES: Latex Date/Time Medication Administered Medication OrderedStart NS [IV] NS IV : Bolus 1000 mL, then 27332:27 06/09/2020 Dose: IV Fluids mL/hr (NOW x1)Santiago [...] rce(s) Supporting Document(s) ID Date Data Source [id number] 06/11/2020 12:21:[address] [facility] [address] [place] [address] PHONE: [phone] FAX: [phone] Name .................. : DON BONILLA Acct Number.................. : [id number] ROOM. ................. : TR-08 Number ................... : [id number] Stay type ............. : E/R Discharge Date......... ... : 06/09/20 Admit Date ......... : 06/09/20 Admit Phys .................... : DIANDRA FELDMAN Date of ....... : 1980 Family Phys ................... : SERVAGE PATRICE Phone .................. : [phone] Age ................................ : 39 Film# .................. .:[id number] Sex ................................. : F Unsigned transcriptions are preliminary reports and do not represent a medical or legal document CT ABD & PELVIS W/ IV ONLY [id number] COMPLETE:06/09/20 19:28 SERA 18362 Reason(s): lower/upper abd pain with NV, elevated [...] of administration: Intravenous Page 1 of 2 [facility] [address] [place] [address] [place] [address] PHONE: [phone] FAX: [phone] Name .................. : DON IRENE Acct Number.................. : [id number] ROOM. ................. : TR-08 MR Number ................... : [id number] Stay type ............. : E/R Discharge Date......... ... : 06/09/20 Admit Date ......... : 06/09/20 Admit Phys .................... : DIANDRA FELDMAN Date of ....... : 1980 Family Phys ................... : SERVAGE PATRICE Phone .................. : [phone] Age ................................ : 39 Film# .................. .:[id number] Sex ................................. : F Unsigned transcriptions are preliminary reports and do not represent a medical or legal document CT ABD & PELVIS W/ IV ONLY [id number] COMPLETE:06/09/20 19:28 SERA 87885 Reason(s): lower/upper abd pain with NV, elevated T bili, Electronically Reviewed and Signed By Alissa Montoya MD , 06/11/20 12:21, KGG Transcribe Initials: LUISANA , Transcribe Date: 06/10/20 01:20, Dictation Date: Copy for: DARRON Bullard via fax Copy for: EMERGENCY DEPT via [facility] Copy for: 710 MED REC DISCHARGED Page 2 of 2 Name Value Range Interpretation Code Description Data Luzmaria rce(s) Supporting Document(s) ID Date Data Source [id number] 06/09/2020 07:38:00 PM EST [facility] [address] [place] [address] RESPIRATORY CARE REPORT ==== ---------NAME------- NUMBER SEX AGE ADMIT DISC. XRAY# F/C TYPEPOUND IRENE [id number] F 39 06/09/20 06/09/20 [id number] KBO E/R DATE OF : 1980 M/R# [id number] #: [id number] TR-08 LOCATION: EMERGENCY DEPT EKG 04221 COMP LETE:06/09/20 15:52 [place] [address] PHYSICIAN: DIANDRA SY DECLAN Name Value Range Interpretation Code Description Data Luzmaria rce(s) Supporting Document(s) ID Date Data Source [id number] 06/09/2020 12:49:00 PM EST [facility] 1 General Instructions [facility] Emergency Department [address] [place] [address] Phone #: ext- [phone] 06/09/2020 12:39 Patient: [...] ADDITIONAL INFORMATIONViral Gastroenteritis (Adult) 2 General Instructions [facility] Emergency Department [address] [place] [address] Phone #: ext- [phone] 06/09/2020 12:39 - [...] of bowel control Headache 3 General Instructions [facility] Emergency Department [address] [place] [address] Phone #: ext- [phone] 06/09/2020 12:39 Patient: [...] with soap and water or use alcohol-based ibm websphere commerce developer to prevent the spread of infection. Wash your hands after touching anyone who is sick. Wash your hands or use alcohol-based ibm websphere commerce developer after using the toilet and before meals. [...] Keep uncooked meats away from cooked and mikep-rk-azr foods.MedicineYou may use acetaminophen or NSAID medicines [...] spicy, or fried foods. 4 General Instructions [facility] Emergency Department [address] [place] [address] Phone #: ext- [phone] 06/09/2020 12:39 Patient: [...] your provider if you don't get better vzfkvi71 hours or if diarrhea lasts more than a week. Also follow up if you are unable to keep down liquidsand get dehydrated. If a stool (diarrhea) sample was taken, call as directed for the results.Call 911 5 General Instructions [facility] Emergency Department [address] [place] [address] Phone #: ext- [phone] 06/09/2020 12:39 Patient: [...] directed by your healthcare provider Bob kerns [phone] [employer]. [address] [place] [address]. All rights reserved. This information is not intended as asubstitute for professional medical care. Always follow your healthcare professional's instructions.Bladder Infection, Female (Adult) 6 General Instructions [facility] Emergency Department [address] [place] [address] Phone #: ext- [phone] 06/09/2020 12:39 Patient: [...] above the pubic bone. 7 General Instructions [facility] Emergency Department [address] [place] [address] Phone #: ext- [phone] 06/09/2020 12:39 Patient: [...] more serious kidney infection.Medicines 8 General Instructions [facility] Emergency Department [address] [place] [address] Phone #: ext- [phone] 06/09/2020 12:39 Patient: [...] will affect your treatment. 9 General Instructions [facility] Emergency Department [address] [place] [address] Phone #: ext- [phone] 06/09/2020 12:39 Patient: [...] swelling in the outer vaginal area (labia) [phone] [employer]. [address] [facility], [place] [address]. All rights reserved. This information is not [...] like cocaine and amphetamine. 10 General Instructions [facility] Emergency Department [address] [place] [address] Phone #: ext- [phone] 06/09/2020 12:39 Patient: IERNE OCHOA Sex: F : 1980 Age: 39yOther [...] of salt when cooking. 11 General Instructions [facility] Emergency Department [address] [place] [address] Phone #: ext- [phone] 06/09/2020 12:39 Patient: IRENE OCHOA Sex: F : 1980 Age: 39y Start an exercise program. Talk with your healthcare provider about what exercise program is best for you. It doesn't have to be difficult. Even brisk walking for 20 minutes 3 times a week is a good form of exercise. Avoid medicines that stimulates the heart. This includes many kovd-ccn-tfdeifg cold and sinus decongestant pills and sprays, as well as diet pills. Check the warnings about high blood pressure on the label. Before purchasing any ywux-jlq-nqtvosm medicines or supplements, always ask the pharmacist [...] on home blood pressure monitoring from the [employer]. Don't smoke or drink coffee for [...] manual for an illustration. 12 General Instructions [facility] Emergency Department [address] [place] [address] Phone #: ext- [phone] 06/09/2020 12:39 [facility]: [id number] Sex: F : 1980 Age: 39y Take [...] Trouble speaking or seeing 13 General Instructions [facility] Emergency Department [address] [place] [address] Phone #: ext- [phone] 06/09/2020 12:39 Patient: IRENE OCHOA Sex: F : 1980 Age: 39y [phone] [employer]. [address] [place] [address], [place] [id number]. All rights reserved. This information is not intended as asubstitute for professional medical care. Always follow your healthcare professional's instructions.Ulm DietYour healthcare provider may recommend a bland [...] or rye bread, alcon or soda crackers, Enterprise toast, plain rolls, bagelsAvoid: Whole-grain breadCerealOK: Refined cereals: cooked or ready to eatAvoid: Whole-grain cereals and granola, or those containing bran, seeds or nutsDesserts 14 General Instructions [facility] Emergency Department [address] [place] [address] Phone #: ext- [phone] 06/09/2020 12:39 Patient: [...] extracts, umer, cinnamon, thyme, mace, allspice, paprikaAvoid: [place] powder, cloves, pepper, seed spices, garlic, gravy pickles, highly seasoned saladdressings 15 General Instructions [facility] Emergency Department [address] [place] [address] Phone #: ext- [phone] 06/09/2020 12:39 Patient: IRENE OCHOA Sex: F : 1980 Age: 39y [phone] [employer] [place] [address]. All rights reserved. This information is not [...] most grocery stores. You don't need aprescription. [phone] [employer]. [address] [place] [address], [place] [address]. All rights reserved. This information is not intended as asubstitute for professional medical care. Always follow your healthcare professional's instructions. 16 General Instructions [facility] Emergency Department [address] [place] [address] Phone #: ext- [phone] 06/09/2020 12:39 Patient: IRENE OCHOA Sex: F : 1980 Age: 39yYou have been given the following additional information:Gastroenteritis, Viral (Adult)Bladder Infection, Female (Adult)High Blood Pressure, Established, Out of ControlDiet, [place] (Adult)Clear Liquid DietNo strenuous activity until better. Rest at home for two days.(Electronically signed by LUIS Knox 06/09/2020 18:38) Name Value Range Interpretation Code Description Data Luzmaria rce(s) Supporting Document(s) ID Date Data Source [id number] 06/09/2020 12:49:00 PM [facility] 1 Clinical Report - Nurses [facility] Emergency Department [address] [place] [address] Phone #: ext- [phone] 06/09/2020 12:39 Patient: IRENE OCHOA Sex: F : 1980 Age: 39yTRIAGEArrived by private vehicle. Historian: patient. Accompanied by family. ( infection in left foot has beenbeing treated, started treatment and then tuesday started vomitting).Acuity: LEVEL 3.Chief Complaint: ABDOMINAL PAIN, NAUSEA and VOMITING.Alert.Onset. (tuesday). She has had abdominal pain. The pain is described as generalized.Treatment CARPENTER HELPER:None.SEPSIS SCREEN: SIRS Screen negative. Sepsis Screen negative. [...] Browne R.N. 2 Clinical Report - Nurses [facility] Emergency Department [address] [place] [address] Phone #: ext- [phone] 06/09/2020 12:39 Patient: [...] treatment room. --12:48 06/09/20 Cee Browne R.N.PHYSICAL GQZUPEHVEK61:09 06/09/20. Ambulatory to room.GENERAL / NEURO / [...] Browne R.N. 3 Clinical Report - Nurses [facility] Emergency Department [address] [place] [address] Phone #: ext- [phone] 06/09/2020 12:39 Patient: IRENE OCHOA Sex: F : 1980 Age: 39y13:30 06/09/20. BP: 171/114. MAP: 133. HR: 98. RR: 18. O2 saturation: 99%. --13:30 06/09/20 Jen Landrum ER Gihn976:27 06/09/2020 Site #1 started via IV in [...] Santiago Franklin RNCardiac rhythm: normal sinus rhythm; (9482). EKG time: (13:25 06/09/2020). EKG was performed [...] protocol ;labeled in presence of the patient. (7435). --13:58 06/09/20 Santiago Franklin RN14:04 06/09/20. BP: 178/105. MAP: 129. HR: 88. RR: 16. O2 saturation: 98%. --14:04 06/09/20 Jen Landrum ER Nptb024:00 06/09/2020 PROTONIX (Pantoprazole Sodium) IVP 40 mg [...] precautions initiated. Gowns and gloves in use. (5513). --14:10 06/09/20 Santiago Franklin RN14:27 06/09/20. BP: 173/107. MAP: 129. HR: 88. RR: 16. O2 saturation: 100%. --14:28 06/09/20 Jen Landrum ER Tech1 4 Clinical Report - Nurses [facility] Emergency Department [address] [place] [address] Phone #: ext- [phone] 06/09/2020 12:39 Patient: [...] saturation: 100%. --14:56 06/09/20 Jen Landrum ER Xtkz385:05 06/09/2020 Clonidine PO Tablets 0.1 mg given. Allergies verified and confirmed 5 rights. Informationreviewed with patient. --15:05 06/09/20 Santiago Franklin RN( Zane Sy notified B/P still elevated V/O clonidine received and given). --15:06 06/09/20 SAIDA Fuller15:28 06/09/20. BP: 169/106. MAP: 127. HR: 91. RR: 16. O2 saturation: 98%. --15:29 06/09/20 Jen Landrum ER Pakw3Sqrqpuk transported to CT by wheelchair with mask and logistics tech. (1540). --15:41 06/09/20 SAURABH Fulleratient returned from CT by wheelchair with mask and logistics tech. (1550). --15:53 06/09/20 Mo mcdowell RN( 1555 pt stating feeling better after I V fluids). --15:54 06/09/20 Santiago Franklin RN15:59 06/09/20. BP: 169/107. MAP: 127. HR: 88. RR: 16. O2 saturation: 98%. --15:59 06/09/20 Rory EDPancho, MERY Li Vqcc6Lohzzqu patient name and birthdate: patient confirmed. Clean catch urine collected with return ofamber-colored urine; sample sent to lab for urinalysis. Specimen labeled in the presence of the patient(1281). --16:54 06/09/20 Santiago Franklin RN( 8495 P A notified of B/P with new [...] rights. Information 5 Clinical Report - Nurses [facility] Emergency Department [address] [place] [address], [place] [address] Phone #: ext- [phone] 06/09/2020 12:39 Patient: IRENE OCHOA Sex: F [...] same. The patient feels the same. Physician delinquent tax collector assistant notified. --17:29 06/09/20 Santiago Franklin RN [...] have improved the patient feels better. Physician delinquent tax collector assistant notified. --17:45 06/09/20 Santiago Franklin RN.DISPOSITION [...] Patient verbalized understanding. Written instructions provided in Frisian. The patient was discharged by the physician delinquent tax collector assistant. She was discharged home and accompanied by spouse. She left ambulatory and via private vehicle. Spouse driving. --18:16 06/09/20 Santiago Franklin RN. 6 Clinical Report - Nurses [facility] Emergency Department [address] [place] [address] Phone #: wku- [phone] 06/09/2020 12:39 Patient: IRENE OCHOA Sex: F : 1980 Age: 39yLocked/Released at 06/09/2020 18:36 by Santiago Franklin RN Name Value Range Interpretation Code Description Data Luzmaria rce(s) Supporting Document(s) ID Date Data Source [id number] 06/09/2020 12:49:00 PM EST [facility] 1 Clinical Report - Physicians/Mid Levels [facility] Emergency Department [address] [place] [address] Phone #: ext- [phone] 06/09/2020 12:39 Patient: [...] 2 C linical Report - Physicians/Mid Levels [facility] Emergency Department [address] [place] [address] Phone #: ext- [phone] 06/09/2020 12:39 Patient: IRENE OCHOA [facility]#: [id number] Sex: F : 1980 Age: 39y ITP. [...] No 3 Clinical Report - Physicians/Mid Levels [facility] Emergency Department [address] [place] [address] Phone #: ext- [phone] 06/09/2020 12:39 Patient: [...] making process. Troponin-T: (LAYNE: 06/09/2020 13:50) ( [facility] 06/09/2020 14:15) Final results Test Result Flag Units (Reference) TROPONIN T <0.01 NG/ML (0.00 - 0.10) TROPONIN T0.1 ng/ml Recommended as the clinical threshold value forTroponin T. Beta-HCG, Qual Serum: (LAYNE: 06/09/2020 13:50) ( [facility] 06/09/2020 14:08) Final results Test Result Flag Units (Reference) HCG SERUM QUAL NEGATIVE (NORMAL: NEGAT HCG SERUM QL REENTER NEGATIVE (NORMAL: NEGAT { KIT LOT # [id number] ){ KIT EXP DATE 04.08.21 ){ PROCEDURAL CONTROL VALID ) CBC w Diff: (LAYNE: 06/09/2020 13:50) ( [facility] 06/09/2020 14:03) Final results Test Result [...] 80.0) 4 Clinical Report - Physicians/Mid Levels [facility] Emergency Department [address] [place] [address] Phone #: ext- [phone] 1 08/10/2019 12:39 [...] Male GFR Interprentation 20-49 yrs >60 mL/min Ewhqja28-36 yrs >56 mL/min Normal 60-69 yrs >49 mL/min Normal 70-79yrs>42 mL/min Normal 80 and above >35 mL/min Normal Female GFRInterpretation 20-39 yrs >60 mL/min Normal 40-49 yrs >58 mL/minNormal 50-59 yrs >51 mL/min Normal 60-69 yrs >45 mL/min Xyqcox74-11 yrs >39 mL/min Normal 80 and above >32 mL/min NormalLactic Acid: (LAYNE: 06/09/2020 13:50) ( SdgRcvd 06/09/2020 14:07) Final results Test Result Flag Units (Reference) LACTIC ACID 3.2 H MMOL/L (0.2 - 2.2)Magnesium: (LAYNE: 06/09/2020 13:50) ( MsgRcvd 06/09/2020 14:17) Final results Test Result Flag Units (Reference) MAGNESIUM 2.0 MG/DL (1.7 - 2.2)Lipase: (LAYNE: 06/09/2020 13:50) ( SdgRcvd 06/09/2020 14:18) Final results 5 Clinical Report - Physicians/Mid Levels [facility] Emergency Department [address] [place] [address] Phone #: ext- [phone] 06/09/2020 12:39 Patient: [...] treatment. 6 Clinical Report - Physicians/Mid Levels [facility] Emergency Department [address] [place] [address] Phone #: ext- [phone] 06/09/2020 12:39 Patient: [...] 06/09/2020 18:38) 7Clinical Report - Physicians/Mid Levels [facility] Emergency Department [address] [place] [address] Phone #: ext- [phone] 06/09/2020 12:39 Patient: IRENE OCHOA Sex: F : 1980 Age: 39y Name Value Range Interpretation Code Description Data Lumzaria rce(s) Supporting Document(s) ID Date Data Source [id number] 06/13/2020 03:09:00 PM EST [facility] Name Value Range Interpretation Code Description Data Luzmaria rce(s) Supporting Document(s) CULTURE URINE [facility] _CULTURE URINE_$$022891$$210765$$681252$$117797$$044484$$381995$$650885$$475896$$691486$$ 402169$$037722$$761672$$347349$$830496$$620056$$588838$$244622$$674548$$863951$$ 193417$$841521$$721464$$683290$$951812$$958354$$726336$$797679 -- Continued on next page --Patient: DON BONILLA Order: [id number] Page 2Culture: CULTURE URINE Status: Final ==== -- Continued on next page --Patient: DON BONILLA Order: [id number] Page 2Culture: CULTURE URINE Status: Prelim =====$$[id number]$$[id number] DATE/TIME: 06/13/2020 11:06Culture: CULTURE URINE Status: FinalIsolate [...] 06/12/2020 01:49 ET Gram negative rodsUrine Culture,Comprehensive: Y8Kxtelcawhc pneumoniae Flag: APatient: DON BONILLA Order: [id number] Page 3Culture: CULTURE URINE Status: Final ISOLATE [...] S S . . . . . .02919-5Lvjwqwqhtr S S . . . . . .267-5Imipenem S S . . . . . .279-0Levofloxacin S S . . . . . .42419-0Etrlfktwr S S . . . . . .6652- 2Nitrofurantoin R R . . . . . .363-2Piperacillin/Tazobactam I I . . . . . .412-7Tetracycline R R . . . . . .496-0Tobramycin S S . . . . . .508-2Trimethoprim/Sulfa R R . . . . . .516-5P1 Test perfo rmed by: Claudine Gonzales [facility] #: [id number] [address] [place] [address] [id number] [facility] [address]Ufqklqb Director : Sky Macedo MD NPI #:Insole Department Worker : 06/12/20.0646.XMT.SENT REF 06/13/20.1509.XMT.SENT REF ID Date Data Source [id number] 06/09/2020 05:07:00 PM EST [facility] Name Value Range Interpretation Code Description Data Luzmaria rce(s) Supporting Document(s) URINALYSIS [facility] URINALYSIS SOURCE R [facility] COLOR yellow NORMAL: Yellow [facility] CLARITY clear NORMAL: Clear [facility] Specific gravity of Urine by Test strip 1.010 1.001 - 1.030 [facility] pH 6.5 5 - 9 [facility] Glucose [Mass/volume] in Urine by Test strip NORM NORMAL: Negat [facility] Bilirubin.total [Presence] in Urine by Test strip NEG NORMAL: Negative [facility] Ketones [Presence] in Urine by Test strip [address]: [address] [facility] Protein [Mass/volume] in Urine by Test strip 30 NORMAL: Negat [facility] Nitrite [Presence] in Urine by Test strip NEG NORMAL: Negative [facility] BLOOD 50 NORMAL: Negative [facility] Leukocyte esterase [Presence] in Urine by Test strip 25 GENEVIEVE L: Negative [facility] Urobilinogen [Mass/volume] in Urine by Test strip NOR less alistair n 1.0 mg/dL [facility] MICROSCOPIC See Below [facility] ital WBC 1 - 3 NORMAL: NONE SEEN [facility] Erythrocytes [#/volume] in Urine by Test strip 1 - 3 NORMAL: NON E SEEN [facility] EPITHELIAL FEW NORMAL: NONE SEEN [facility] Bacteria [Presence] in Urine sediment by Light microscopy Tr sujata NORMAL: NONE SEEN [facility] ID Date Data Source [id number] 06/11/2020 08:12:00 AM [facility] Name Value Range Interpretation Code Description Data Luzmaria rce(s) Supporting Document(s) Cortisol [Mass/volume] in Serum or Plasma 36.2 ug/dL [facility] C ortisol AM 6.2 - 19.4 Cortisol PM 2.3 - 11.9 ID Date Data Source [id number] 06/09/2020 02:17:00 PM [facility] Name Value Range Interpretation Code Description Data Luzmaria rce(s) Supporting Document(s) COMPREHENSIVE METABOLIC PANEL [facility] COMPREHENSIVE METABOLIC PANEL Sodium [Moles/volume] in Serum or Plasma 139 mEq/L 134 - 153 [facility] Potassium [Moles/volume] in Serum or Plasma 3.5 mEq/L 3.6 - 5.0 L [facility] Chloride [Moles/volume] in Serum or Plasma 103 mEq/L 98 - 107 [facility] Carbon dioxide, total [Moles/volume] in Serum or Plasma 24 MEQ/L 22 - 30 [facility] Glucose [Mass/volume] in Serum or Plasma 112 MG/DL 65 - 110 H [facility] BUN 14 MG/DL 7 - 21 [facility] Creatinine [Mass/volume] in Serum or Plasma 0.6 MG/DL 0.7 - 1.5 L [facility] BUN/CREAT 23 8 - 27 [facility] Protein [Mass/volume] in Serum or Plasma 6.9 G/DL 6.3 - 8.2 [facility] Albumin [Mass/volume] in Serum or Plasma 4.3 G/DL 3.9 - 5.0 [facility] Globulin [Mass/volume] in Serum by calculation 2.6 GM/DL 2.4 - 3.2 [facility] A/G RATIO 1.7 0.8 - 2.0 [facility] Calcium [Mass/volume] in Serum or Plasma 8.5 MG/DL 8.4 - 10.2 [facility] Bilirubin.total [Mass/volume] in Serum or Plasma 1.7 MG/DL 0.2 - 1.3 H [facility] Alkaline phosphatase [Enzymatic activity/volume] in Serum or Plasma 75 U/L 38 - 126 [facility] Aspartate aminotransferase [Enzymatic activity/volume] in Serum or Plasma 45 U/L 5 - 40 H [facility] Alanine aminotransferase [Enzymatic activity/volume] in Seru m or Plasma 23 U/L 7 - 56 [facility] Anion gap 3 in Serum or Plasma 12.0 mmol/L 8.0 - 16.0 [facility] AGE 39 yrs [facility] NON-AA GFR >60 mL/min [facility] ital AFR AMER GFR >60 mL/min [facility] spital Male GFR In terprentation [...] >32 mL/min Normal ID Date Data Source [id number] 06/09/2020 02:17:00 PM [facility] Name Value Range Interpretation Code Description Data Luzmaria rce(s) Supporting Document(s) Lipase [Enzymatic activity/volume] in Serum or Plasma 15 U/L 13 - 60 [facility] ID Date Data Source [id number] 06/09/2020 02:17:00 PM [facility] Value Range Interpretation Code Description Data Luzmaria rce(s) Supporting Document(s) Magnesium [Mass/volume] in Serum or Plasma 2.0 MG/DL 1.7 - 2.2 [facility] ID Date Data Source [id number] 06/09/2020 02:15:00 PM [facility] Value Range Interpretation Code Description Data Luzmaria rce(s) Supporting Document(s) TROPONIN T <0.01 NG/ML 0.00 - 0.10 [facility]ital TROPONIN T0.1 ng/ml Recommended as the c linical threshold value forTroponin T. ID Date Data Source [id number] 06/09/2020 02:08:00 PM [facility] Value Range Interpretation Code Description Data Luzmaria rce(s) Supporting Document(s) HCG SERUM QUAL NEGATIVE NORMAL: NEGATIVE [facility] HCG SERUM QL REENTER NEGATIVE NORMAL: NEGATIVE [facility] { KIT LOT # [id number] ){ KIT EXP DATE 04.08.21 ){ PROCEDURAL CONTROL VALID ) ID Date Data Source [id number] 06/09/2020 02:07:00 PM [facility] Name Value Range Interpretation Code Description Data Luzmaria rce(s) Supporting Document(s) Lactate [Moles/volume] in Serum or Plasma 3.2 MMOL/L 0.2 - 2.2 H [facility] ID Date Data Source [id number] 06/09/2020 02:02:00 PM [facility] Value Range Interpretation Code Description Data Luzmaria rce(s) Supporting Document(s) CBC W/AUTOMATED DIFF [facility] COMPLETE BLOOD COUNT Leukocytes [#/volume] in Blood by Automated count 4.3 10^3/uL 4.2 - 1 1.0 [facility] Erythrocytes [#/volume] in Blood by Automated count 4.80 10^6/uL 4. 20 - 5.40 [facility] Hemoglobin [Mass/volume] in Blood 16.2 g/dL 12.0 - 16.0 H [facility] Hematocrit [Volume Fraction] of Blood by Automated count 45.9 % 3 7.0 - 47.0 [facility] Erythrocyte mean corpuscular volume [Entitic volume] by Auto mated count 95.6 fL 81.0 - 101 [facility] Erythrocyte mean corpuscular hemoglobin [Entitic mass] by Automated count 33.8 pg 27.0 - 34.0 [facility] Erythrocyte mean corpuscular hemoglobin concentration [Mass/volume] by Automated count 35.3 g/dL 31.0 - 36.0 [facility] Erythrocyte distribution width [Ratio] by Automated count 12.7 % 11.5 - 14.5 [facility] Platelets [#/volume] in Blood by Automated count 96 10^3/uL 150 - 450 L [facility] Platelet mean volume [Entitic volume] in Blood by Automated count 10.5 fL 7.4 - 10.4 H [facility] Neutrophils/100 leukocytes in Blood by Automated count 64.3 % 37. 0 - 80.0 [facility] Lymphocytes/100 leukocytes in Blood by Manual count 25.6 % 25.0 - 40.0 [facility] Monocytes/100 leukocytes in Blood by Automated count 8.7 % 3.0 - 8.0 H [facility] Eosinophils/100 leukocytes in Blood by Automated count 0.2 % 0.0 - 7.0 [facility] Basophils/100 leukocytes in Blood by Automated count 0.5 % 0.0 - 2.5 [facility] %IG 0.7 % 0.0 - 0.0 [facility] 0.0 % 0.0 - 0.0 [facility] Neutrophils [#/volume] in Blood by Automated count 2.73 10^3/uL 2.00 - 6.90 [facility] Lymphocytes [#/volume] in Blood by Automated count 1.09 10^3/uL 0.60 - 3.40 [facility] Monocytes [#/volume] in Blood by Automated count 0.37 10^3/uL 0.00 - 0.90 [facility] Eosinophils [#/volume] in Blood by Automated count 0.01 10^3/uL 0.00 - 0.70 [facility] Basophils [#/volume] in Blood by Automated count 0.02 10^3/uL 0.00 - 0.20 [facility] #IG 0.03 10^3/uL 0.00 - 0.10 [facility] #NRBC 0.00 10^3/uL 0.00 - 0.00 [facility] MANUAL DIFF NOT INDICATED [facility] RBC MORPH NOT INDICATED [facility] spital ID Date Data Source [id number] 06/16/2020 02:12:00 PM EST [facility] Name Value Range Interpretation Code Description Data Luzmaria rce(s) Supporting Document(s) Urine Culture [facility] ospital ID Date Data Source [id number] 06/16/2020 02:12:00 PM EST [facility] Name Value Range Interpretation Code Description Data Luzmaria rce(s) Supporting Document(s) Amoxicillin/Clavulanic Acid Susc eptible. Indicates for microbiology susceptibilities only. [facility] Cefazolin Susceptible. Indicates for microbiol ogy susceptibilities only. [facility] Cefepime Susceptible. Indicates for microbiol ogy susceptibilities only. [facility] Ceftriaxone Susceptible. Indicates for m icrobiology susceptibilities only. [facility] Ciprofloxacin Susceptible. Ind icates for microbiology susceptibilities only. [facility] Ertapenem Susceptible. Indicates for microbiol ogy susceptibilities only. [facility] Gentamicin Susceptible. Indicates for microbiol ogy susceptibilities only. [facility] Imipenem Susceptible. Indicates for microbiol ogy susceptibilities only. [facility] Meropenem Susceptible. Indicates for microbiol ogy susceptibilities only. [facility] Levofloxacin Susceptible. Indicates for m icrobiology susceptibilities only. [facility] Nitrofurantoin 128 Results entered -- not verified [facility] Pipercillin/Tazobactam 8 Susceptib le. Indicates for microbiology susceptibilities only. [facility] Trimeth/Sulfamethoxazole Suscept ible. Indicates for microbiology susceptibilities only. [facility] ID Date Data Source [id number] 05/16/2020 08:39:00 AM EST [facility] spital QUANTITY: >100,000/mL {KLEBSIELLA P NEUMONIAE} [facility]LEBSIE[facility] PNEUMONIAESCT Name Value Range Interpretation Code Description Data [facility] rce(s) Supporting Document(s) ID Date Data Source [id number] 05/16/2020 08:39:00 AM EST [facility] spital QUANTITY: >100,000/mL {KLEBSIELLA P NEUMONIAE} K[facility]BSIE[facility] PNEUMONIAESCT Name Value Range Interpretation Code Description Data [facility] rce(s) Supporting Document(s) Amoxicillin/Clavulanic Acid Susc eptible. Indicates for microbiology susceptibilities only. [facility] Cefazolin Susceptible. Indicates for microbiol ogy susceptibilities only. [facility] Cefepime Susceptible. Indicates for microbiol ogy susceptibilities only. [facility] ESBL - [facility] Ceftriaxone Susceptible. Indicates for m icrobiology susceptibilities only. [facility] Ciprofloxacin Susceptible. Ind icates for microbiology susceptibilities only. [facility] Ertapenem Susceptible. Indicates for microbiol ogy susceptibilities only. [facility] Gentamicin Susceptible. Indicates for microbiol ogy susceptibilities only. [facility] Imipenem Susceptible. Indicates for microbiol ogy susceptibilities only. [facility] Meropenem Susceptible. Indicates for microbiol ogy susceptibilities only. [facility] Levofloxacin Susceptible. Indicates for m icrobiology susceptibilities only. [facility] Nitrofurantoin 128 Results entered -- not verified [facility] Pipercillin/Tazobactam 8 Susceptib le. Indicates for microbiology susceptibilities only. [facility] Trimeth/Sulfamethoxazole Suscept ible. Indicates for microbiology susceptibilities only. [facility] ID Date Data Source [id number] 08/19/2020 03:10:00 PM EST [facility] Name Value Range Interpretation Code Description Data Luzmaria rce(s) Supporting Document(s) Thyroglobulin Antibody result <4.0 Normal (applies t o non-numeric results) [facility] ADDITIONAL INFORMATIO N The thyroglobulin antibody testing method is an immunoenzymatic assay manufactured by [employer] and performed on the [employer] DXI 800. Values obtained from different assay methods or kits may be different and cannot be used interchangeably. The results cannot be interpreted as absolute evidence for the presence or absence of malignant disease. Test Performed by: [place] [address] [employer] Department Worker: Vicente Suárez M.D. Ph.D.; CLIA# [id number] ID Date Data Source [id number] 08/19/2020 03:09:00 PM [facility] Value Range Interpretation Code Description Data Luzmaria rce(s) Supporting Document(s) Thyroperoxidase Ab Normal (applies to non-numer ic results) [facility] Test [place] [address] ID Date Data Source [id number] 08/19/2020 02:52:00 PM [facility] Value Range Interpretation Code Description Data Luzmaria rce(s) Supporting Document(s) Thyroperoxidase Ab Normal (applies to non-numer ic results) [facility] Test performed or referred by The [address] [address] ID Date Data Source [id number] 08/19/2020 02:52:00 PM [facility] Value Range Interpretation Code Description Data Luzmaria rce(s) Supporting Document(s) Thyroglobulin Antibody result <4.0 Normal (applies t o non-numeric results) [facility] ADDITIONAL INFORMATIO N The thyroglobulin antibody testing method is an immunoenzymatic assay manufactured by [employer] and performed on the [employer] DXI 800. Values obtained from different assay methods or kits may be different and cannot be used interchangeably. The results cannot be interpreted as absolute evidence for the presence or absence of malignant disease. Test Performed by: [facility] [address] [place] [address] [employer] Department Worker: Vicente Suárez M.D. Ph.D.; CLIA# [id number] ID Date Data Source [id number] 06/16/2020 02:12:00 PM EST [facility] Name Value Range Interpretation Code Description Data Luzmaria rce(s) Supporting Document(s) Creatinine,Urine Normal (applies to non-numeric results) [facility] Interpret with care as there is no estab lished reference range associated with this assay's methodology that pertains to this particular sex and/or age. Microalbumin,Urine <1.7 Normal (applies to non-numer ic results) [facility] Albumin/Creatinine Ratio,Urine Normal (applies to non-numeric results) [facility] Test Performed By: [facility] [address] [place] [address] Director: Modesto Joshi MD Reference Ranges for Microalbumin,spot: Normal <30 ug/mg creatinine Microalbuminuria 30-300 ug/mg creatinine Clinical Albuminuria >300 ug/mg creatinine ID Date Data Source [id number] 06/16/2020 02:12:00 PM EST [facility] Name Value Range Interpretation Code Description Data Luzmaria rce(s) Supporting Document(s) T3 (Tri-Iodothyronine) 60.0-181.0 Normal (applies to non-n umeric results) [facility] Test Performed By: [facility] [address] [place] [address] Director: Modesto Joshi MD ID Date Data Source [id number] 06/16/2020 02:12:00 PM EST [facility] Name Value Range Interpretation Code Description Data Luzmaria rce(s) Supporting Document(s) CPK 59 U/L 26-192 Normal (applies to non-numeric resul ts) [facility] Test Performed By: [facility] [address] [place] [address] Director: Modesto Joshi MD ID Date Data Source [id number] 06/16/2020 02:12:00 PM EST [facility] Name Value Range Interpretation Code Description Data Luzmaria rce(s) Supporting Document(s) T4 (Thyroxine) 4.8-13.9 Normal (applies to non-numeric r esults) [facility] Test Performed By: [facility] [address] [place] [address] Director: Modesto Joshi MD ID Date Data Source [id number] 06/16/2020 02:12:00 PM EST [facility] Name Value Range Interpretation Code Description Data Luzmaria rce(s) Supporting Document(s) Free T3 2.18-3.98 Normal (applies to non-numeric resul ts) [facility] Test Performed By: [facility] [address] [place] [address] Director: Modesto Joshi MD ID Date Data Source [id number] 05/15/2020 04:42:00 PM [facility] MB if CPK is elevated? Y MB if CPK is elevated? Y MB if CPK is elevated? Y Name Value Range Interpretation Code Description Data Luzmaria rce(s) Supporting Document(s) CPK result 59 U/L 26-192 Normal (applies to non-numeric resul ts) [facility] Test Performed By: [facility] [address] [place] [address] Director: Modesto Joshi MD ID Date Data Source [id number] 05/15/2020 04:42:00 PM [facility] MB if CPK is elevated? Y MB if CPK is elevated? Y MB if CPK is elevated? Y Name Value Range Interpretation Code Description Data Luzmaria rce(s) Supporting Document(s) Free T3 result 2.18-3.98 Normal (applies to non-numeric r esults) [facility] Test Performed By: [facility] [address] [place] [address] Director: Modesto Joshi MD T3 result 60.0-181.0 Normal (applies to non-numeric resul ts) [facility] Test Performed By: [facility] [address] [place] [address] Director: Modesto Joshi MD ID Date Data Source [id number] 05/15/2020 04:42:00 PM EST [facility] MB if CPK is elevated? Y MB if CPK is elevated? Y MB if CPK is elevated? Y Name Value Range Interpretation Code Description Data Luzmaria rce(s) Supporting Document(s) T4 result 4.8-13.9 Normal (applies to non-numeric resul ts) [facility] Test Performed By: [facility] [address] [place] [address] Director: Modesto Johsi MD ID Date Data Source [id number] 05/15/2020 07:09:00 AM [facility] Name Value Range Interpretation Code Description Data Luzmaria rce(s) Supporting Document(s) UMALB Urine Creatinine result Normal (applies t o non-numeric results) [facility] Interpret with care as there is no estab lished reference range associated with this assay's methodology that pertains to this particular sex and/or age. [facility]AL[facility] Microalbumin,Ur result <1.7 Normal (applies to non-numeric results) [facility] UMALB Alb/Cre Ratio,Ur result Normal (applies t o non-numeric results) [facility] Test Performed By: [facility] [address] [place] [address] Director: Modesto Joshi MD Reference Ranges for Microalbumin,spot: Normal <30 ug/mg creatinine Microalbuminuria 30-300 ug/mg creatinine Clinical Albuminuria >300 ug/mg creatinine ID Date Data Source [id number] 05/14/2020 04:11:00 PM [facility] Name Value Range Interpretation Code Description Data Luzmaria rce(s) Supporting Document(s) White Blood Count 3.5-10.5 Normal (applies to non-numeri c results) [facility] Red Blood Count 3.90-5.00 Normal (applies to non-numeric results) [facility] Hemoglobin 12.0-15.5 Normal (applies to non-numeric resul ts) [facility] Hematocrit 34.9-44.5 Normal (applies to non-numeric resul ts) [facility] Mean Corpuscular Volume 81.2-95.1 Above high normal [facility] Mean Corpuscular Hgb 25.6-32.2 Above high normal [facility] Mean Corpuscular Hgb Conc 32.0-36.0 Normal (applies to no n-numeric results) [facility] Red Cell Distribution Width 11.9-15.5 Normal (appli es to non-numeric results) [facility] Platelet Count 71 x10 3/uL 150-450 Below low normal [facility] Mean Platelet Volume 9.4-12.4 Normal (applies to non-num dc results) [facility] Neutrophils% (Auto) 31.0-71.0 Normal (applies to non-nume juliette results) [facility] Lymphocytes% (Auto) 20.0-55.0 Normal (applies to non-nume juliette results) [facility] Monocytes% (Auto) 4.0-12.0 Normal (applies to non-numeri c results) [facility] Eosinophils% (Auto) 1.0-8.0 Below low normal [facility] Basophils% (Auto) 0.0-2.0 Normal (applies to non-numeri c results) [facility] Immature Granulocytes% (Auto) 0.0-2.0 Normal (ced lies to non-numeric results) [facility] Neutrophils# (Auto) 1.50-6.20 Normal (applies to non-nume juliette results) [facility] Lymphocytes# (Auto) 1.20-4.00 Normal (applies to non-nume juliette results) [facility] Monocytes# (Auto) 0.00-0.90 Normal (applies to non-numeri c results) [facility] Eosinophils# (Auto) 0.00-0.50 Normal (applies to non-nume juliette results) [facility] Basophils# (Auto) 0.00-0.20 Normal (applies to non-numeri c results) [facility] Immature Granulocytes# (Auto) 0.00-7.00 No rmal (applies to non-numeric results) [facility] Slide Reviewed By Normal (applies to non-numeri c results) [facility] Slide has been reviewed and findings con firmed by a technologist/compounding pharmacy technician. ID Date Data Source [id number] 05/14/2020 03:34:00 PM EST [facility] C&S IF INDICATED Name Value Range Interpretation Code Description Data Luzmaria rce(s) Supporting Document(s) Color,Urine Colorl-Dk Y Normal (applies to non-numeric res ults) [facility] Clarity,Urine Clear Normal (applies to non-numeric re sults) [facility] Specific [place],Urine 1.005-1.030 Normal (applies to non- numeric results) [facility] pH,Urine 5.0-8.0 Normal (applies to non-numeric resul ts) [facility] Protein,Urine Negative Normal (applies to non-numeric re sults) [facility] Glucose,Urine Negative Normal (applies to non-numeric re sults) [facility] Ketones,Urine Negative Normal (applies to non-numeric re sults) [facility] Blood,Urine Negative [facility] Bilirubin,Urine Negative Normal (applies to non-numeric results) [facility] Urobilinogen,Urine 0.2-1.0 Normal (applies to non-numer ic results) [facility] Leukocyte Esterase,Urine Negative Normal (applies to non -numeric results) [facility] Nitrite,Urine Negative Normal (applies to non-numeric re sults) [facility] RBC,Urine None Seen [facility] WBC,Urine None Seen [facility] Casts,Urine None Seen Normal (applies to non-numeric resu lts) [facility] Squamous Cells,Urine None Seen [facility] Bacteria,Urine None Seen [facility] ital ID Date Data Source [id number] 05/14/2020 02:56:00 PM EST [facility] Name Value Range Interpretation Code Description Data Luzmaria rce(s) Supporting Document(s) Sodium 139 mmol/L 136-145 Normal (applies to non-numeric resul ts) [facility] Potassium 3.5-5.1 Below low normal [facility] spital Chloride 101 mmol/L 98-107 Normal (applies to non-numeric resul ts) [facility] Carbon Dioxide CO2 21-32 Normal (applies to non-numer ic results) [facility] Anion Gap 5.0-16.0 Normal (applies to non-numeric resul ts) [facility] BUN 13 mg/dL 7-18 Normal (applies to non-numeric results) [facility] Creatinine,Serum 0.7-1.2 Normal (applies to non-numeric results) [facility] GFR >60 Normal (applies to non-numeric results) [facility] Glucose Level 82 mg/dL 60-99 Normal (applies to non-numeric re sults) [facility] Reference range is only applicable when patient is fasting Note the following drug interference: Sulfasalazine Sulfapyridine Can see falsely depressed Can see falsely elevated result with up to 17% results with up to 11% decrease in measurement increase in measurement Recommend patients be collected for this test prior to administration of either drug. Calcium 8.5-10.1 Below low normal [facility] spital Bilirubin,Total 0.1-1.9 Normal (applies to non-numeric results) [facility] SGOT(AST) 33 U/L 15-37 Normal (applies to non-numeric resul ts) [facility] Note the following drug interference: Sulfasalazine Sulfapyridine Can see falsely depressed Can see falsely elevated result with up to 10% results with up to 10% decrease in measurement increase in measurement Recommend patients be collected for this test prior to administration of either drug. SGPT(ALT) 37 U/L 12-78 Normal (applies to non-numeric resul ts) [facility] Note the following drug interference: Sulfasalazine Sulfapyridine Can see falsely depressed Can see falsely elevated result with up to 29% results with up to 10% decrease in measurement increase in measurement Recommend patients be collected for this test prior to administration of either drug. Alkaline Phosphatase 67 U/L 38-126 Normal (applies to non-num dc results) [facility] can increase Alkaline Phosp le vels up to 2 times the normal adult value. Normal values for children and adolescents are 2 to 3 times the normal adult value. Total Protein 6.0-8.2 Normal (applies to non-numeric re sults) [facility] Albumin Level 3.4-5.0 Normal (applies to non-numeric re sults) [facility] ID Date Data Source [id number] 05/14/2020 02:56:00 PM [facility] Name Value Range Interpretation Code Description Data Luzmaria rce(s) Supporting Document(s) Triglycerides 252 mg/dL <150 Above high normal [facility] Cholesterol 183 mg/dL 100-200 Normal (applies to non-numeric resu lts) [facility] LDL Cholesterol Calculated 71 0-130 Normal (applies to n on-numeric results) [facility] HDL Cholesterol 62 mg/dL 40-60 Above high normal [facility] Cholesterol/HDL Ratio 3.6-6.7 Below low normal [facility] ID Date Data Source [id number] 05/14/2020 02:56:00 PM [facility] Name Value Range Interpretation Code Description Data Luzmaria rce(s) Supporting Document(s) Free T4 (Free Thyroxine) 0.76-1.46 Normal (applies to non -numeric results) [facility] ID Date Data Source [id number] 05/14/2020 02:56:00 PM [facility] Name Value Range Interpretation Code Description Data Luzmaria rce(s) Supporting Document(s) Thyroid Stimulate Hormone TSH 0.358-3.74 No rmal (applies to non-numeric results) [facility] ID Date Data Source [id number] 05/21/2020 08:39:00 AM [facility] Imaging Report [address], [place] [address] %(RAD)RES..mtdd.print.filter("line") Name: IRENE ZAVALETA : 1980 Age/Sex: 39F Ordering Provider: LUIS Duvall Med Rec #: [id number] Reg Status: DEP REF Room #: Date of Service: 05/14/20 Report Number: [id number] cc:LUIS Duvall Send Report To: [id number] XRP/XR Chest 2 View [Pa & Lat] [...] Date/Time: 05/19/20 1543 Transcribed Date/Time: 05/21/20 0839 [employer]: [id number] Name Value Range Interpretation Code Description Data Luzmaria rce(s) Supporting Document(s) ID Date Data Source [id number] 05/14/2020 11:37:00 AM EST [facility] ([facility]) Name Value Range Interpretation Code Description Data Luzmaria rce(s) Supporting Document(s) Thyroid Stimulating Hormone 1.494 ME [facility] ([facility]) Creatine kinase [Enzymatic activity/volume] in Serum or Plasma 59 41-270 [facility] ([facility]) ID Date Data Source [id number] 05/14/2020 11:37:00 AM EST [facility] ([facility]) Name Value Range Interpretation Code Description Data Luzmaria rce(s) Supporting Document(s) HDL 62 40-60 [facility]) Triglycerides 252 [facility] ([facility]) Cholesterol 183 120-200 [facility] ([facility]) Chol/HDL Ratio 3.0 [facility] ([facility]) Cholesterol in LDL [Mass/volume] in Serum or Plasma by calculation 71 [facility] ([facility]) ID Date Data Source [id number] 05/14/2020 11:37:00 AM EST [facility] ([facility]) Name Value Range Interpretation Code Description Data Luzmaria rce(s) Supporting Document(s) Albumin [Mass/volume] in Serum or Plasma 3.9 [facility] ([facility]) Alanine aminotransferase [Enzymatic activity/volume] in Serum or Pl asma 37 [facility] ([facility]) Carbon dioxide, total [Moles/volume] in Serum or Plasma 26.3 [facility] ([facility]) Chloride [Moles/volume] in Serum or Plasma 101 [facility] ([facility]) Calcium [Mass/volume] in Serum or Plasma 8.0 [facility] ([facility]) Alkaline phosphatase [Enzymatic activity/volume] in Serum or Plasma 6 7 [facility] ([facility]) Protein [Mass/volume] in Serum or Plasma 7.1 [facility] ([facility]) Potassium [Moles/volume] in Serum or Plasma 3.1 [facility] ([facility]) Aspartate aminotransferase [Enzymatic activity/volume] in Serum or Plasma 33 [facility] ([facility]) Sodium 139 [facility] ([facility]) Glucose 82 70-100 [facility] ([facility]) Urea nitrogen [Mass/volume] in Serum or Plasma 13 [facility] ([facility]) Creatinine For GFR 0.7 [facility] ([facility]) ID Date Data Source [id number] 05/14/2020 11:37:00 AM EST [facility] ([facility]) Name Value Range Interpretation Code Description Data Luzmaria rce(s) Supporting Document(s) Red Blood Count 4.29 4.70-6.20 [facility] ([facility]) White Blood Count 5.7 4.3-10.9 [facility] ([facility]) Platelets 71 130-400 [facility] Hemoglobin 14.6 13.0-17.0 [facility] ([facility]) Hematocrit 42.1 39.0-50.0 [facility] ([facility]) ID Date Data Source [id number] 04/30/2020 12:00:00 AM EDT [facility] Name Value Range Interpretation Code Description Data Luzmaria rce(s) Supporting Document(s) SARS coronavirus 2 RNA [facility] This lab was ordered by [facility] and rep orted by [facility]. Procedure Social History Code Duration Value Status Description Data Source(s ) Smoking 10/14/2020 12:00:00 AM EDT Patient has never smoked co mpleted Patient has never smoked [facility] ([facility]) Vital Signs ID Date Data Source UNK Name Value Range Interpretation Code Description Data Source(s) Body mass index (BMI) [Ratio] 32.69 kg/m2 32.69 kg/m2 [facility] Systolic blood pressure 137 mm[Hg] 137 mm[Hg] [facility] Diastolic blood pressure 87 mm[Hg] 87 mm[Hg] [facility] Body surface area Derived from formula 2.16 m2 2.16 m2 [facility] Oxygen saturation in Arterial blood by Pulse oximetry 98 % 98 % [facility] Heart rate 98.0 /min 98.0 /min [facility] ospital Respiratory rate 18 /min 18 /min [facility] Body temperature 36.8 Madonna 36.8 Madonna [facility] Body weight 97.52 kg 97.52 kg [facility] Body height 172.7200 cm 172.7200 cm [facility] Body weight 214.00 [lb_av] 214.00 [lb_av] [facility] T ([facility]) Body height 68 [in_i] 68 [in_i] [facility]) 5'8" Body mass index (BMI) [Ratio] 32.5 kg/m2 32.5 k g/m2 [facility] ([facility]) Systolic blood pressure--sitting 136 mm[Hg] 136 mm[Hg] [facility] ([facility]) Ra, large cuff Diastolic blood pressure--sitting 84 mm[Hg] 84 mm[Hg] [facility] ([facility]) Ra, large cuff Body height 68 [in_i] 68 [in_i] [facility] ([facility]) 5'8" Body mass index (BMI) [Ratio] 30.9 kg/m2 30.9 k g/m2 [facility] ([facility]) Heart rate 89 /min 89 /min [facility] ([facility]) Systolic blood pressure--sitting 100 mm[Hg] 100 mm[Hg] [facility] ([facility]) Omron large cuff, Ra Diastolic blood pressure--sitting 74 mm[Hg] 74 mm[Hg] [facility] ([facility]) Omron large cuff, Ra Body weight 203.00 [lb_av] 203.00 [lb_av] [facility] T ([facility]) Systolic blood pressure 142 mm[Hg] 142 mm[Hg] M EDENT ([facility], ) Diastolic blood pressure 78 mm[Hg] 78 mm[Hg] [facility] ([facility]) Body height 58 [in_i] 58 [in_i] [facility] ([facility]) 4'10" Body weight 203.50 [lb_av] 203.50 [lb_av] [facility] T ([facility]) Body mass index (BMI) [Ratio] 42.5 kg/m2 42.5 k g/m2 [facility] ([facility]) [place] body weight 100 [lb_av] 100 [lb_av] [facility] T ([facility]) Body weight 92.308 kg 92.308 [facility] Body surface area Derived from formula 1.83 m2 1.83 m2 [facility] ([facility]) Systolic blood pressure--sitting 128 mm[Hg] 128 mm[Hg] [facility] ([facility]) Omron, adult cuff/Ra Body weight 197.00 [lb_av] 197.00 [lb_av] [facility] T ([facility]) Body height 68 [in_i] 68 [in_i] [facility] ([facility]) 5'8" Body mass index (BMI) [Ratio] 30.0 kg/m2 30.0 k g/m2 [facility] ([facility]) Heart rate 89 /min 89 /min [facility] ([facility]) Diastolic blood pressure--sitting 95 mm[Hg] 95 mm[Hg] [facility] ([facility]) Omron, adult cuff/Ra Patient Treatment Plan of Care Planned Activity Planned Date Details Description Data Source (s) buspirone hydrochloride 7.5 MG Oral Tablet 04/09/2021 12:00:00 AM E [facility] Trazodone Hydrochloride 50 MG Oral Tablet 04/09/2021 12:00:00 AM ED [facility] Levothyroxine Sodium 0.088 MG Oral Tablet 06/03/2020 12:00:00 AM [facility] Levothyroxine Sodium 0.088 MG Oral Tablet 05/10/2019 12:00:00 AM [facility]
[2021-04-30] MEDS ORDERED: CLON0.5T2 PO (06:38)
[2021-04-30] MEDS ORDERED: FENO48TA8 PO (06:38)
[2021-04-30] MEDS ORDERED: SYNT75TA PO (06:38)
[2021-04-30] MEDS ORDERED: ZOFR4TAB16 PO (06:38)
[2021-04-30] MEDS ORDERED: LISI20TA33 PO (06:38)
[2021-04-30] MEDS ORDERED: HYDR-4571 PO (06:38)
[2021-04-30] MEDS ORDERED: TRAZ-186 PO (06:39)
[2021-04-30] MEDS ORDERED: BUSP1TAB PO (06:39)
[2021-04-30] MEDS ORDERED: CEFD300CAP PO (06:39)
== END 2021-04-29 21:53 | disposition left against medical advice (07) ==
LOC: M ED 21:05
DX: Z53.21 Procedure and treatment not carried out due to patient leaving prior to being seen by health care provider (principal)

== ENCOUNTER 2021-04-29 23:58 | Inpatient (IN) | payer OTHER ==
[~2021-04-29] VITALS: Ht 172.7 cm; Wt 102.5 kg
--- OUTSIDE RECORDS SUMMARY | 2021-04-30 00:09 | CCD ---
Author Author [facility] Organization [facility] Address Unknown Phone Unavailable Care Team Providers Care Steamer Blocker Name Role Phone Servage, L Roxy CONTRACT AGENT Unavailable Unavailable Servage, L Roxy CONTRACT AGENT Unavailable Unavailable Servage, L Roxy CONTRACT AGENT Unavailable Unavailable Servage, L Roxy CONTRACT AGENT Unavailable Unavailable Servage, L Roxy CONTRACT AGENT Unavailable Unavailable Servage, L Roxy CONTRACT AGENT Unavailable Unavailable Servage, L Roxy CONTRACT AGENT Unavailable Unavailable Servage, L Roxy CONTRACT AGENT Unavailable Unavailable Servage, L Roxy CONTRACT AGENT Unavailable Unavailable Servage, L Roxy CONTRACT AGENT Unavailable Unavailable Servage, L Roxy CONTRACT AGENT Unavailable Unavailable Servage, L Roxy CONTRACT AGENT Unavailable Unavailable Servage, L Roxy CONTRACT AGENT Unavailable Unavailable Servage, L Roxy CONTRACT AGENT Unavailable Unavailable Servage, L Roxy CONTRACT AGENT Unavailable Unavailable Servage, L Roxy CONTRACT AGENT Unavailable Unavailable Servage, L Roxy CONTRACT AGENT Unavailable Unavailable Servage, L Roxy CONTRACT AGENT Unavailable Unavailable Servage, L Roxy CONTRACT AGENT Unavailable Unavailable Servage, L Roxy CONTRACT AGENT Unavailable Unavailable Servage, L Roxy CONTRACT AGENT Unavailable Unavailable Servage, L Orxy CONTRACT AGENT Unavailable Unavailable Servage, L Roxy CONTRACT AGENT Unavailable Unavailable Servage, L Roxy CONTRACT AGENT Unavailable Unavailable Servage, L Roxy CONTRACT AGENT Unavailable Unavailable Servage, L Roxy CONTRACT AGENT Unavailable Unavailable Servage, L Roxy CONTRACT AGENT Unavailable Unavailable Servage, L Roxy CONTRACT AGENT Unavailable Unavailable Servage, L Roxy CONTRACT AGENT Unavailable Unavailable Servage, L Roxy CONTRACT AGENT Unavailable Unavailable Servage, L Roxy CONTRACT AGENT Unavailable Unavailable Servage, L Roxy CONTRACT AGENT Unavailable Unavailable Servage, L Roxy CONTRACT AGENT Unavailable Unavailable Servage, L Roxy CONTRACT AGENT Unavailable Unavailable Servage, L Roxy CONTRACT AGENT Unavailable Unavailable Servage, L Roxy CONTRACT AGENT Unavailable Unavailable Servage, L Roxy CONTRACT AGENT Unavailable Unavailable Servage, L Roxy CONTRACT AGENT Unavailable Unavailable Servage, L Roxy CONTRACT AGENT Unavailable Unavailable Servage, L Roxy CONTRACT AGENT Unavailable Unavailable Servage, L Roxy CONTRACT AGENT Unavailable Unavailable Servage, L Roxy CONTRACT AGENT Unavailable Unavailable Servage, L Roxy CONTRACT AGENT Unavailable Unavailable Servage, L Roxy CONTRACT AGENT Unavailable Unavailable Servage, L Roxy CONTRACT AGENT Unavailable Unavailable Servage, L Roxy CONTRACT AGENT Unavailable Unavailable Servage, L Roxy CONTRACT AGENT Unavailable Unavailable Servage, L Roxy CONTRACT AGENT Unavailable Unavailable Servage, L Roxy CONTRACT AGENT Unavailable Unavailable Servage, L Roxy CONTRACT AGENT Unavailable Unavailable Servage, L Roxy CONTRACT AGENT Unavailable Unavailable Servage, L Roxy CONTRACT AGENT Unavailable Unavailable Servage, L Roxy CONTRACT AGENT Unavailable Unavailable Servage, L Roxy CONTRACT AGENT Unavailable Unavailable Servage, L Roxy CONTRACT AGENT Unavailable Unavailable Servage, L Roxy CONTRACT AGENT Unavailable Unavailable Servage, L Roxy CONTRACT AGENT Unavailable Unavailable Servage, L Roxy CONTRACT AGENT Unavailable Unavailable Servage, L Roxy CONTRACT AGENT Unavailable Unavailable Servage, L Roxy CONTRACT AGENT Unavailable Unavailable Servage, L Roxy CONTRACT AGENT Unavailable Unavailable Servage, L Roxy CONTRACT AGENT Unavailable Unavailable Servage, L Roxy CONTRACT AGENT Unavailable Unavailable Servage, L Roxy CONTRACT AGENT Unavailable Unavailable Servage, L Roxy CONTRACT AGENT Unavailable Unavailable Chandni, L Lo PA Unavailable [...] L MARIS PA Unavailable Unavailable FILIBERTO, L AMRIS PA Unavailable Unavailable FILIBERTO, L MARIS PA [...] Dennis JR, J Car MD Unavailable Unavailable Dennsi JR, J Car MD Unavailable Unavailable Dennis [...] is protected by Article 27-F of the [facility] Public Health law. If you continue you may have access to information: Regarding HIV / AIDS; Provided by facilities licensed or operated by the [facility] Office of Mental Health; or Provided by the [facility] Office for People With Developmental Disabilities. If such information is present, then the following [facility] mandated warning applies: This information has been [...] law may result in a fine or longterm sentence or both. A general authorization for the release of medical or other information is NOT sufficient authorization for further disc losure. Allergies and Adverse Reactions Type Description Substance Reaction Status Data Source(s ) Environmental Allergy LATEX LATEX [facility] Family History Family Member Name Family Member Gender Family Member Status Date o f Status Description Data Source(s) Unknown Male Problem [facility] ([facility]) Unknown Unknown Problem [facility] ([facility], [facility]) mother,mgm Encounters Encounter Providers Location Date Indications Data Source(s ) Outpatient Attender: Lo SMITH Admitter: Lo Tariq PAReferrer: Lo Tariq PAConsultant: Lo SMITH 04/08 02:11:00 PM EDT - 04/08/2021 11:00:00 AM EDT [facility] PATIENT [facility] NEW PATIENT Patient discharged. Outpatient Attender: MARIS SMITH Main Office 04/08/2021 0 8:00:00 AM EDT [facility] ([facility]) Outpatient Attender: Steven MosherAttender: STEVEN MOSHER [id number] -[id number] 01/08/2021 12:00:00 AM [facility] Outpatient Attender: Lo SMITH ED-HCCEDWPCP 01/2021 09:20:00 AM EDT - 01/07/2021 09:21:00 AM [facility] Patient discharged. Outpatient Attender: Lo SMITH -HCCEDWPCP 07/2020 03:30:00 PM EDT - 12/02/2020 03:31:00 PM [facility] Patient discharged. Outpatient Attender: STEVEN MOSHER 11/26/2020 12:00:00 AM [facility] Outpatient Attender: JOSÉ MIGUEL NEGRON MD Main Office 10/14/2020 08:00:00 AM EDT [facility] ([facility]) Outpatient Attender: Lo SMITH -HCCEDWPC 01/2021 04:15:00 PM EDT - 10/08/2020 04:16:00 PM EDT [facility] Patient discharged. Outpatient Attender: Car Smalls/Breanna/Lorenzo/Caity andujar 10/06/2020 01:15:00 PM EDT [facility] ([facility], ) Outpatient Attender: Lo Tariq [place] ED-[facility] 07:03:00 AM EDT - 2020 07:04:00 AM EDT [facility] Patient discharged. Outpatient Attender: JOSÉ MIGUEL NEGRON MD Main Office 08/01/2020 09:45:00 AM EST [facility] ([facility] Outpatient Attender: Lo [facility] 04/2020 01:22:00 PM EST - 06/12/2020 01:23:00 PM EST [facility] Patient discharged. Outpatient Attender: Lo Tariq [facility] 03/2020 07:49:00 AM EST - 06/11/2020 07:50:00 AM [facility] Patient discharged. Emergency Attender: PITA Pearsonsuant: Roxy sanchez CONTRACT AGENT 06/09/2020 12:49:00 PM EST - 06/09/2020 06:15:00 PM EST [facility] Patient discharged. Outpatient Attender: Lo Tariq [facility] 01/2020 12:41:00 PM EST - 06/09/2020 12:42:00 PM [facility] Patient discharged. Outpatient Attender: Lo Tariq [place] [facility] 10/2019 01:36:00 PM EST - 06/06/2020 01:37:00 PM [facility] Patient discharged. Outpatient Attender: Lo SMITH [facility] 03:20:00 PM EST - 05/26/2020 03:21:00 PM [facility] Patient discharged. Outpatient Attender: Lo SM[facility] 06/2020 07:31:00 AM EST - 05/15/2020 07:32:00 AM EST [facility] Patient discharged. Outpatient Attender: UNKNOWN [facility]PS[facility]ORT-LABEJN 05/14/2020 03:12:00 PM E [facility] Outpatient Attender: Lo SMITH ED-[facility]GH 05/2020 12:17:00 PM EST - 05/14/2020 12:18:00 PM EST I10 E03.9 [facility] I10 E03.9 Patient discharged. Outpatient Attender: Lo SMITH -HCCEDWPCP 01:47:00 PM EDT - 04/21/2020 01:48:00 PM EDT [facility] Patient discharged. Medications Medication Brand Name Start Date Product Form Dose Route Admi nistrative Instructions Pharmacy Instructions Status Indications Reaction Description Data Source(s) 300 mg 04/20/2021 12:00:00 AM EDT capsule 20 TAKE ONE CAPSULE BY MOUTH EVERY 12 HOURS FOR 10 DAYS TAKE ONE CAPSULE BY MOUTH EVERY 12 HOURS FOR 10 DAYS S OLD: 04/20/2021 [facility] buspirone hydrochloride 7.5 MG Oral Tablet busPIRone H Cl 7.5MG Oral Tablet busPIRone HCl 7.5MG Oral Tablet 04/09/2021 12:00:00 AM EDT 1 TABLET BY MOUTH active <td>busPIRone H Cl 7.5MG Oral Tablet</td><td>04/09/2021</td><td>Unknown</td><td>BY MOUTH</td><td>TWICE A DAY</td><td>1 TABLET</td><td>786673</td><td>RxNorm</td><td>TAKE 1 TABLET BY MOUTH TWICE A DAY NEEDED</td> [facility] 7.5 mg 04/09/2021 12:00:00 AM EDT tablet 60 TAKE ONE TABLET BY MOUTH TWICE A DAY NEEDED TAKE ONE TABLET BY MOUTH TWICE A DAY NEEDED SOLD: 04/09/2021 [facility] Trazodone Hydrochloride 50 MG Oral Table t traZODone hydrochloride 50MG Oral Tablet traZODone hydrochloride 50MG Oral Tablet 04/09/2021 12:00:00 AM EDT 0 TABLET BY MOUTH active <td>traZOD one hydrochloride 50MG Oral Tablet</td><td>04/09/2021</td><td>Unknown</td><td>BY MOUTH</td><td>AT BEDTIME</td><td></td><td>499762</td><td>RxNorm</td><td>TAKE 1-2 TABLET BY MOUTH AT BEDTIME</td> [facility] 50 mg 04/09/2021 12:00:00 AM EDT tablet 60 TAKE 1 TO 2 TABLETS BY MOUTH AT BEDTIME TAKE 1 TO 2 TABLETS BY MOUTH AT BEDTIME SOLD: 04/09/2021 [facility] Lisinopril 20 MG Oral Tablet Lisinopril 04/08/2021 12:00:00 AM EDT ORAL active [facility] ([facility]) 20 mg 04/08/2021 12:00:00 AM EDT tablet 90 TAKE ONE TABLET BY MOUTH EVERY DAY TAKE ONE TABLET BY MOUTH EVERY DAY SOLD: 04/09/2021 [facility] Amlodipine 5 MG Oral Tablet Amlodipine Besylate 04/07/2021 12:00:00 A M EDT ORAL completed [facility] ([facility] Fenofibrate 48 MG Oral Tablet Fenofibrate 04/07/2021 12:00:00 AM EDT ORAL active [facility] ([facility]) 0.5 mg 03/29/2021 12:00:00 AM EDT tablet 60 TAKE ONE TABLET BY MOUTH TWICE A DAY MAXIMUM DAILY DOSE = 2 TAKE ONE TABLET BY MOUTH TWICE A DAY MAX IMUM DAILY DOSE = 2 SOLD: 03/29/2021 [facility] 0.5 mg 02/28/2021 12:00:00 AM [...] ONCE DAILY IMMEDIATELY AFTER DISSOLVING SOLD: 11/13/2020 [facility] 200 mg 11/12/2020 12:00:00 AM EDT [...] MAXIMUM DAILY DOSE = 4 SOLD: 10/22/2020 [facility] Flax Seeds 10/14/2020 12:00:00 AM EDT active [facility] ([facility]) Simethicone 80 MG Chewable Tablet [Mi-Acid Gas Relief] PA-Ac id Gas Relief 10/13/2020 12:00:00 AM EDT ORAL completed [facility] ([facility]) 10 mg 10/13/2020 12:00:00 AM EDT tablet 30 TAKE ONE TABLET BY MOUTH EVERY 6 HOURS NEEDED MAXIMUM DAILY DOSE = 4 TAKE ONE TABLET BY MOUTH EVERY 6 HOURS A S NEEDED MAXIMUM DAILY DOSE = 4 SOLD: 10/13/2020 [facility] Fenofibrate 48 MG Oral Tablet Fenofibrate 10/13/2020 12:00:00 AM EDT ORAL completed [facility] ([facility]) Levothyroxine Sodium 0.075 MG Oral Tablet Levothyroxine Sodi um 10/13/2020 12:00:00 AM EDT ORAL active M [facility] ([facility]) 24 HR Propranolol Hydrochloride 120 MG Extended Releas e Oral Capsule Propranolol HCL ER 10/13/2020 12:00:00 AM EDT ORAL completed [facility] ([facility]) 75 mcg 10/09/2020 12:00:00 AM EDT [...] TWICE A DAY WITH MEALS SOLD: 09/18/2020 [facility] Metronidazole 500 MG Oral Tablet METRONIDAZOLE 09/18/2020 [...] AM EST completed [facility] ([facility]) 24 HR Desvenlafaxine 25 MG Extended Release Oral Table t Desvenlafaxine Succinate ER 08/01/2020 12:00:00 AM EST ORAL completed [facility] ([facility]) doxycycline hyclate 100 MG Oral Tablet Doxycycline Hyclate 0 07/31/2020 12:00:00 AM EST ORAL completed [facility] ([facility]) Levothyroxine Sodium 0.088 MG Oral Tablet Levothyroxine Sodi um 07/31/2020 12:00:00 AM EST ORAL completed [facility] ([facility]) 24 HR Desvenlafaxine 50 MG Extended Release Oral Table t Desvenlafaxine Succinate ER 07/31/2020 12:00:00 AM EST ORAL completed [facility] ([facility]) Spironolactone 25 MG Oral Tablet Spironolactone 07/31/2020 12:00:00 A M EST ORAL active [facility] ([facility] 88 mcg 07/08/2020 12:00:00 AM EST [...] hypothyroidism Take 1 tablet by mouth Daily [facility] Other specified hypothyroidism 88 mcg 06/03/2020 [...] THREE TIMES A DAY NEEDED SOLD: 07/08/2020 [facility] Alprazolam 0.25 MG Oral Tablet ALPRAZOLAM [...] CAPSULE BY MOUTH EVERY DAY SOLD: 04/21/2020 [facility] Alprazolam 0.25 MG Oral Tablet ALPRAZOLAM 04/21/2020 [...] 1 TABLET AFTER 1-2 WEEKS SOLD: 04/21/2020 [facility] 88 mcg 05/10/2019 12:00:00 AM EST tablet 30 TAKE 1 TABLET BY MOUTH DAILY TAKE 1 TABLET BY MOUTH DAILY SOLD: 03/15/2020 [facility] Levothyroxine Sodium 0.088 MG Oral Table t Levothyroxine Sodium 88 MCG Oral Tablet (SYNTHROID, LEVOTHROID) Levothyroxine Sodium 88 MCG Oral Tablet (SYNTHROID, LEVOTHROID) 05/10/2019 12:00:00 AM EST 88 ug Oral active Other specified hypothyroidism Take 1 tablet by mouth Daily [facility] Other specified hypothyroidism 88 mcg 05/10/2019 12:00:00 AM EST tablet 30 TAKE 1 TABLET BY MOUTH DAILY TAKE 1 TABLET BY MOUTH DAILY SOLD: 04/20/2020 [facility] Insurance Providers Payer name Policy type / Coverage type Policy ID Covered libertarian ID Covered libertarian's relationship to james Policy James Plan Information [place] [employer] Commercial [id number] Family Dependent [id number] [facility] Trad/MX Commercial [id number] Family Dependent 802 [employer]OM[employer] [id number] SP [id number] [employer] [id number] SP [id number] [employer] [id number] [id number] Self [id number] R U [id number] Self [id number] 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 [id number] Self [id number] Commercial [id number] Self [id number] ANSI-Not a Secondary Insurance [id number] [facility] [id number] SP [id number] [facility] [id number] SP [id number] [employer] Ppo Commercial [id number] Self [id number] POM[employer]-O/P [id number] 18 [id number] [employer] P[employer] Commercial [id number] Self [id number] [employer] Commercial [id number] Self [employer] PPO P [id number] S [id number] [employer] [id number] SP [id number] [facility] [id number] undefined [id number] UMR [id number] S [id number] UMR -O/P [id number] 18 [id number] [facility] [id number] SP [id number] BS [facility] [id number] [facility] [id number] [facility] Commercial [id number] Self [id number] [facility] Commercial [id number] Self [id number] [facility] Commercial [id number] Self [id number] Problems, Conditions, and Diagnoses Code Display Name Description Problem Type Effective Dates Data Source(s) F411 Generalized anxiety disorder Generalized anxiety disor brandie Diagnosis 04/08/2021 02:11:00 PM EDT [facility] D693 Immune thrombocytopenic purpura Immune thrombocytopeni c purpura Diagnosis 04/08/2021 02:11:00 PM EDT [facility] R609 Edema, unspecified Edema, unspecified Diagnosis 02:11:00 PM EDT [facility] E039 Hypothyroidism, unspecified Hypothyroidism, unspecifie d Diagnosis 04/08/2021 02:11:00 PM EDT [facility] E782 Mixed hyperlipidemia Mixed hyperlipidemia Diagnosis 04/08/2021 02:11:00 PM EDT [facility] I10 Essential (primary) hypertension Essential (primary) h ypertension Diagnosis 04/08/2021 02:11:00 PM EDT [facility] R002 Palpitations Palpitations Diagnosis 04/08/2021 02:11:00 P M EDT [facility] [id number] Latex allergy status Latex allergy status Diagnosis 06/09/2020 12:49:00 PM [facility] Z9049 Acquired absence of other specified part s of digestive tract Acquired absence of other specified parts of digestive tract Diagnosis 12:49:00 PM [facility] E039 Hypothyroidism, unspecified Hypothyroidism, unspecifie d Diagnosis 06/09/2020 12:49:00 PM [facility] I10 Essential (primary) hypertension Essential (primary) h ypertension Diagnosis 06/09/2020 12:49:00 PM [facility] E869 Volume depletion, unspecified Volume depletion, unspec ified Diagnosis 06/09/2020 12:49:00 PM [facility] E860 Dehydration Dehydration Diagnosis 06/09/2020 12:49:00 PM [facility] N3001 Acute cystitis with hematuria Acute cystitis with elena turia Diagnosis 06/09/2020 12:49:00 PM [facility] A084 Viral intestinal infection, unspecified Viral intestinal infection, unspecified Diagnosis 06/09/2020 12:49:00 PM [facility] R1030 Lower abdominal pain, unspecified Lower abdomina l pain, unspecified Diagnosis 06/09/2020 12:49:00 PM [facility] I10 Essential (primary) hypertension ESSENTIAL (PRIMARY) H YPERTENSION Diagnosis [facility], unspecified HYPOTHYROIDISM, UNSPECIFIE D Diagnosis [facility]/21[facility]3 Immune thrombocytopenic purpura IMMUNE THROMBOCYTOPENI C PURPURA Diagnosis 04/21/2020 01:47:00 PM [facility] F41.0 Panic disorder [episodic paroxysmal anxi ety] PANIC DISORDER [EPISODIC PAROXYSMAL ANXIETY] Diagnosis 04/21/2020 01:47:00 PM [facility] F41.1 Generalized anxiety disorder GENERALIZED ANXIETY DISOR BRANDIE Diagnosis 04/21/2020 01:47:00 PM [facility] R60.0 Edema Edema Problem 04/08/2021 12:00:00 AM ED T [facility] ([facility]) E78.1 Pure hyperglyceridemia Pure hyperglyceridemia Problem 10/14/2020 12:00:00 AM EDT [facility] ([facility]) [id number] Essential hypertension Essential hypertension Problem 09/29/2020 12:00:00 AM EDT [facility] E78.5 Hyperlipidemia Hyperlipidemia Problem 08/01/2020 12:00: 00 AM EST [facility] ([facility]) F41.1 Generalized anxiety disorder Generalized anxiety disor brandie Problem 08/01/2020 12:00:00 AM EST [facility] ([facility]) R23.2 Flushing Flushing Problem 08/01/2020 12:00:00 AM ES T [facility] ([facility]) I10 Essential hypertension Essential hypertension Problem 08/01/2020 12:00:00 AM EST [facility] ([facility]) Z71.3 Dietary management surveillance Dietary management anna veillance Problem 08/01/2020 12:00:00 AM EST [facility] ([facility]) E66.09 Obesity Obesity Problem 08/01/2020 12:00:00 AM ES T [facility] ([facility]) R00.2 Palpitations Palpitations Problem 08/01/2020 12:00:00 A M EST [facility] ([facility]) Surgeries/Procedures Procedure Description Date Indications Data Source(s) OFFICE OUTPATIENT VISIT 15 MINUTES 04/08/2021 12:00:00 AM EDT [facility] ([facility]) External ECG Rec>48HR<7D Recording 03/24/2021 12:00:00 AM [facility] External ECG Rec>48HR<7D Review & Interpretation 03/24 12:00:00 AM EDT [facility] ([facility]) OFFICE OUTPATIENT VISIT 15 MINUTES 10/14/2020 12:00:00 AM [facility] ECG ROUTINE ECG W/LEAST 12 LDS W/I&R 08/01/2020 12:00: 00 AM EST [facility] 23448 X-RAY EXAM CHEST 2 VIEWS 05/14/2020 12:00:00 AM [facility] ECG ROUTINE ECG W/LEAST 12 LDS TRCG ONLY W/O I&R ELECTROCARD IOGRAM TRACING 05/14/2020 12:00:00 AM [facility] THYROGLOBULIN ANTIBODY THYROGLOBULIN ANTIBODY 05/14/2020 12:00:00 A M [facility] MICROSOMAL ANTIBODIES EACH MICROSOMAL ANTIBODY EACH 05/14/2020 1 2:00:00 AM [facility] THYROXINE FREE ASSAY OF FREE THYROXINE 05/14/2020 12:00:00 AM [facility] THYROID STIMULATING HORMONE TSH ASSAY THYROID STIM HORMONE 1 07/14/2019 12:00:00 AM [facility] SUSCEPTIBLTY STDY ANTIMICRBIAL MICRO/AGAR DILUTJ MICROBE NAOMIE CEPTIBLE ANSHU 05/14/2020 12:00:00 AM [facility] URNLS DIP STICK/TABLET REAGENT AUTO MICROSCOPY URINALYSIS AU TO W/SCOPE 05/14/2020 12:00:00 AM [facility] COLLECTION VENOUS BLOOD VENIPUNCTURE ROUTINE VENIPUNCTURE 12:00:00 AM [facility] BLOOD COUNT COMPLETE AUTO&AUTO DIFRNTL WBC COUNT COMPLETE CB C W/AUTO DIFF WBC 05/14/2020 12:00:00 AM [facility] THYROXINE TOTAL ASSAY OF TOTAL THYROXINE 05/14/2020 12:00:00 AM [facility] CREATINE KINASE TOTAL ASSAY OF CK (CPK) 05/14/2020 12:00:00 AM [facility] ALBUMIN URINE MICROALBUMIN QUANTIATIVE UR ALBUMIN QUANTITATI VE 05/14/2020 12:00:00 AM [facility] CREATININE OTHER SOURCE ASSAY OF URINE CREATININE 05/14/2020 12:00: 00 AM [facility] TRIIODOTHYRONINE T3 FREE FREE ASSAY (FT-3) 05/14/2020 12:00:00 AM [facility] TRIIODOTHYRONINE T3 TOTAL TT3 ASSAY TRIIODOTHYRONINE (T3) 12:00:00 AM [facility] LIPID PANEL LIPID PANEL 05/14/2020 12:00:00 AM [facility] COMPREHENSIVE METABOLIC PANEL COMPREHEN METABOLIC PANEL 05/04 12:00:00 AM [facility] OFFICE OUTPATIENT VISIT 10 MINUTES OFFICE/OUTPATIENT VISIT E ST 04/21/2020 12:00:00 AM T [facility] Results ID Date Data Source 1 04/23/2021 12:00:00 AM EDT [facility] Name Value Range Interpretation Code Description Data Luzmaria rce(s) Supporting Document(s) SARS-CoV2 Rapid PCR Negative [facility] This lab was ordered by [facility] and reported by [facility]. ID Date Data Source [id number] 04/20/2021 12:00:00 AM EDT [facility] Name Value Range Interpretation Code Description Data Luzmaria rce(s) Supporting Document(s) SARS-CoV2 Rapid Antigen Negative [facility] This lab was ordered by [facility] and reported by [facility]. ID Date Data Source [id number] 04/08/2021 09:26:00 AM EDT [facility] ([facility]) Name Value Range Interpretation Code Description Data Luzmaria rce(s) Supporting Document(s) Glucose, Fasting 93 mg/dL 70-100 [facility] ([facility]) Blood Urea Nitrogen 12 mg/dL 7-18 [facility] ([facility] Creatinine For GFR 0.79 mg/dL 0.55-1.30 [facility] ([facility]) Sodium Level 140 meq/L 136-145 [facility] Potassium Serum 3.7 meq/L 3.5-5.1 [facility] ([facility]) Glomerular Filtration Rate Laboratory test result [facility] ([facility]) <content>Units are mL/min/1.73 m2</content>
<content></content>
<content>Chronic Kidney Disease Staging per NKF:</content>
<content></content>
<content>Stage I & II GFR >=60 Normal to Mildly Decreased</content>
<content>Stage III GFR 30-59 Moderately Decreased</content>
<content>Stage IV GFR 15-29 Severely Decreased</content>
<content>Stage V GFR <15 Very Little GFR Left</content>
<content>ESRD GFR <15 on ASSOCIATE PROFESSOR OF BIBLICAL STUDIES</content>
<content></content> Anion Gap 10 meq/L 8-16 [facility] ([facility]) Carbon Dioxide Level 23 meq/L 21-32 [facility] ([facility]) Chloride Level 107 meq/L 98-107 [facility] ([facility]) Calcium Level 8.8 mg/dL 8.5-10.1 [facility] ([facility]) ID Date Data Source [id number] 04/08/2021 09:26:00 AM EDT [facility] ([facility] Name Value Range Interpretation Code Description Data Luzmaria rce(s) Supporting Document(s) Natriuretic peptide.B prohormone N-Terminal [Mass/volu me] in Serum or Plasma 25 pg/mL [facility] ([facility]) <content>note:<nlbl:demographic_changed> </content>
<content></content> ID Date Data Source [id number] 01/08/2021 01:27:05 PM EDT [facility] Name Value Range Interpretation Code Description Data Luzmaria rce(s) Supporting Document(s) Progress Note [facility] HOAXXe1mMbPAAeIn55/IMMzmMQInd9TvDRdnGHu7UHohIWYqA5FoEJE4eR6iGPM8AIsJIwTkZhVfCyR3 lbm [file] L3rnQnEBzwAOy6GN6ZAKBEK1RLYl== ID Date Data Source [id number] 01/08/2021 01:27:00 PM EDT [facility] Name Value Range Interpretation Code Description Data Luzmaria rce(s) Supporting Document(s) Progress Note [facility] CADVCo9vPpKIRtQe99/NKTbnCMTvk5AuWJooVJh1MWzaBXGlT2KfOCU9aX8kOUC9JBgZVhRmDfZuDyR3 lbm [file] AgICAgICAgICAgICAgICAgICAgICAgICAgICAgICAg ICAgICAgICAgICAgICAgICAgICAgICAgICAgICAgICAgICAgICAgICAgICAgICAgDQogICAgICAgICAg ICAgICAgICAgICAgICAgICAgICAgICAgICAgICAgICAgICAgICAgICAgICAgICAgICAgICAgICAgICAg ICAgICAgICAgICAgICAgICAgICAgICAgICAgICAgDQ ogICAgICAgICAgICAgICAgICAgICAgICAgICAgICAgICAgICAgICAgICAgICAgICAgICAgICAgICAgIC AgICAgICAgICAgICAgICAgICAgICAgICAgICAgICAgICAgICAgICAgDQogICAgICAgICAgICAgICAgIC AgICAgICAgICAgICAgICAgICAgICAgICAgICAgICAg ICAgICAgICAgICAgICAgICAgICAgICAgICAgICAgICAgICAgICAgICAgICAgICAgICAgDQogICAgICAg ICAgICAgICAgICAgICAgICAgICAgICAgICAgICAgICAgICAgICAgICAgICAgICAgICAgICAgICAgICAg ICAgICAgICAgICAgICAgICAgICAgICAgICAgICAgIC AgDQogICAgICAgICAgICAgICAgICAgICAgICAgICAgICAgICAgICAgICAgICAgICAgICAgICAgICAgIC AgICAgICAgICAgICAgICAgICAgICAgICAgICAgICAgICAgICAgICAgICAgDQogICAgICAgICAgICAgIC AgICAgICAgICAgICAgICAgICAgICAgICAgICAgICAg ICAgICAgICAgICAgICAgICAgICAgICAgICAgICAgICAgICAgICAgICAgICAgICAgICAgICAgDQogICAg ICAgICAgICAgICAgICAgICAgICAgICAgICAgICAgICAgICAgICAgICAgICAgICAgICAgICAgICAgICAg ICAgICAgICAgICAgICAgICAgICAgICAgICAgICAgIC AgICAgDQogICAgICAgICAgICAgICAgICAgICAgICAgICAgICAgICAgICAgICAgICAgICAgICAgICAgIC AgICAgICAgICAgICAgICAgICAgICAgICAgICAgICAgICAgICAgICAgICAgICAgDQogICAgICAgICAgIC AgICAgICAgICAgICAgICAgICAgICAgICAgICAgICAg ICAgICAgICAgICAgICAgICAgICAgICAgICAgICAgICAgICAgICAgICAgICAgICAgICAgICAgICAgDQo8 M8jbTHAdRBImXC7vCGx6Xr9+DVcYMcQfYRU3qpXknM2KEA6ss7TnYWzrSASgd1DiZDf5NM4FEUOfFZua IL2SYQfiji2IBHQcZASunITZj2xeKcNsPMT7OKYkFl joRX7HNBHhM6zxxjVsYLLzRKSBVY4TKbQwN8IseU12IXYGSl2+MTzoraTeJlsYNdIcGKDvy9DdYIk1QO 9VSUVvHwifq3MhOoMoBHOEZIsrQZ2VLUO0NGMfBOHwNp7OUOKgJ038jxDtMD1VRb2TLgTtHT3xwh9JRr GwHQSmVhtASic4PHicJJ3FvCJcZWsOgi9xgiXmkvKQ g2KmtpPamSJVzQ1fOV2fZ0XuoFurTJvLGbDesOH0VxugUvRdVNIvROwyVWQKQMgPOlDuG3Azx0QaMvX4 DSFvAhLrDLpwTMYaVhC9BZ47sKytZK5BXYQsTHWwEM52CPJfHFLjSq6YCt8FQxVhSG1hhn7YIpPpEHRj TtgCRyv5KZdiIV7HhDSqP2AuaAYmx8aRVcAbG1RIVD NeHOUyAh8BIPJcGdVgQCTyLWlvBV0eVXTcQEUXaZcmigQ4MF2XIP7cuqZfIO5NGhQnRj5mLw4SRdNgP4 AaG3ZjBULuGGZYDVgoHE5LQKtpBF1lID1Qt8EXpVCbeU0lep9AIUTrTMYfYsgwsv9XVikhZ0M6eIhqBQ EuMgTbMBPKZJlkFY0QXQNcWSN8WRVnCSUgAKUUFmAq W19aWT0OI7Dva74vQkM0OQPhPwLlGLsfAF79mHfncuUfyDOoyXhyAV5IVf3+DQplbmRvYmoNCnhyZWYN JjImAiWWTuSzRJNiEAHjTAHuMaL7UsKiVy9XXWObXCDaAUEzCdKeBACwRIPbLKoiQACwBWE4NzG9SNRw XMAzXV9OXrNqEPSjGvUmAXdpKANxRRPvyn7ZKPKdIA BdBLI6DhKzQFFqVMBtRTllOFFaJUWpZAy2BWBaYNOcBI8WDcKxEUVcCVJgMRppYJMtHMCyrg0WUDWgBN TbOlR4NDJnJILdJHKdRXaiOYIyEDMuLaH5KDVhAZGcPB0MSwOgUQBzTFB4GrEdWOEoWDBpyy4PFSRaRS WxUGV3AxHmWLNcEZLdEMhtVZBjNWB5PXn7OSYoGASa AG9VAhGzORPsJVI3SNAzJOBuQWEgyn2WKFRjBLSpWbFxXjTaEHMiDFSuELftNITgIVT6IOKuNHXmNHDk DA0TQtHgQMSzRAP0TiItVVAmESKvov6TLYWtLCGyRzoqNURvKIZbYDMvKRopQOPiYCU1QMA1KBSrBVLb ZN1WKzHbMBTcITl0FDMzAXAaYUYjsb8ERVSjOQBhCR I2QcJvGWMhQJMtNUosLCDgCEW9AuZlFVMlVLKcZG7KZeXgGSFvTSe5CLmuDDVrBTPdjw0IJYMgUDNqOV I6QcSdAPVfHEKeBHedIJPhANZhPjU9EUDoEQGfJV3OQuOyRCUdGjX1FITaPZMoQYNnsp0SlCWltChchn 4FIAeTKu3DcWysQFG7UJykXn9sjGEmTQPeWHTFJz6K bzAkWUUbRETQKJjyEWZcOXqaHGQhD2FwOQZwAdG3PCc6AgAmWACdQAF1MvG1DCZ4CkS5H8KcRySkBDO2 SEInJSxaDltbYKStPiA1CXduZpaoIWo+MU6lGKd+He5Ew5FbilD3ymAaPZerWNY4GS7QUCOBZ6GKIu== ID Date Data Source [id number] 09/14/2020 02:48:00 PM EDT [facility] Name Value Range Interpretation Code Description Data Luzmaria rce(s) Supporting Document(s) SARS-CoV-2 (COVID 19) NEGATIVE - SARS-CoV-2 (COVID19) [facility] This lab was ordered by [facility] a nd reported by [facility]. ID Date Data Source [id number] 09/08/2020 11:56:00 AM EST [facility] Name Value Range Interpretation Code Description Data Luzmaria rce(s) Supporting Document(s) SARS coronavirus 2 RNA [Presence] in Res piratory specimen by ANTONIO with probe detection NEGATIVE [facility] This lab was ordered by [facility] a nd reported by [facility]. ID Date Data Source [id number] 06/13/2020 12:00:00 AM EST [facility] Name Value Range Interpretation Code Description Data Luzmaria rce(s) Supporting Document(s) SARS-CoV2 Rapid Antigen [facility] This lab was ordered by [facility] and reported by [facility]. ID Date Data Source [id number] 06/09/2020 12:49:00 PM [facility] 1 OrderSheet [facility] Emergency Department [address] [place] [address] Phone #: fwn- [phone] 06/09/2020 12:39 Patient: IRENE OCHOA Sex: F [...] NV, elevated T bili,MEDICATION/IV/DRIP/FLUID ORDERS 2 OrderSheet [facility] Emergency Department [address] [place] [address] Phone #: ext- [phone] 06/09/2020 12:39 Patient: [...] rce(s) Supporting Document(s) ID Date Data Source [id number] 06/09/2020 12:49:00 PM EST [facility] 1 Medication Reconciliation Report [facility] Emergency Department [address] [place] [address] Phone #: ext- [phone] 06/09/2020 12:39 Patient: [...] rce(s) Supporting Document(s) ID Date Data Source [id number] 06/09/2020 12:49:00 PM EST [facility] 1 Medication Administration Record [facility] Emergency Department [address] [place] [address] Phone #: ext- [phone] 06/09/2020 12:39 Patient: IRENE OCHOA Sex: F : 1980 Age: 39yWeight: 82.5 kgHeight/Length: 68 inBMI: 27.7ALLERGIES: Latex Date/Time Medication Administered Medication OrderedStart NS [IV] NS IV : Bolus 1000 mL, then 93949:27 06/09/2020 Dose: IV Fluids mL/hr (NOW x1)Santiago [...] rce(s) Supporting Document(s) ID Date Data Source [id number] 06/11/2020 12:21:00 PM [facility] [address] [place] [address] PHONE: [phone] FAX: [phone] Name .................. : DON BONILLA Acct Number.................. : [id number] ROOM. ................. : TR-08 Number ................... : [id number] Stay type ............. : E/R Discharge Date......... ... : 06/09/20 Admit Date ......... : 06/09/20 Admit Phys .................... : DIANDRA FELDMAN Date of ....... : 1980 Family Phys ................... : SERVAGE PATRICE Phone .................. : [phone] Age ................................ : 39 Film# .................. .:[id number] Sex ................................. : F Unsigned transcriptions are preliminary reports and do not represent a medical or legal document CT ABD & PELVIS W/ IV ONLY [id number] COMPLETE:06/09/20 19:28 SERA 16309 Reason(s): lower/upper abd pain with NV, elevated [...] of administration: Intravenous Page 1 of 2 [facility] [address] [place] [address] [place] [address] PHONE: [phone] FAX: [phone] Name .................. : DON IRENE Acct Number.................. : [id number] ROOM. ................. : TR-08 MR Number ................... : [id number] Stay type ............. : E/R Discharge Date......... ... : 06/09/20 Admit Date ......... : 06/09/20 Admit Phys .................... : DIANDRA FELDMAN Date of ....... : 1980 Family Phys ................... : SERVAGE PATRICE Phone .................. : [phone] Age ................................ : 39 Film# .................. .:[id number] Sex ................................. : F Unsigned transcriptions are preliminary reports and do not represent a medical or legal document CT ABD & PELVIS W/ IV ONLY [id number] COMPLETE:06/09/20 19:28 SERA 95958 Reason(s): lower/upper abd pain with NV, elevated T bili, Electronically Reviewed and Signed By Alissa Montoya MD , 06/11/20 12:21, KGG Transcribe Initials: LUISANA , Transcribe Date: 06/10/20 01:20, Dictation Date: Copy for: DARRON Bullard via fax Copy for: EMERGENCY DEPT via [facility] Copy for: 710 MED REC DISCHARGED Page 2 of 2 Name Value Range Interpretation Code Description Data Luzmaria rce(s) Supporting Document(s) ID Date Data Source [id number] 06/09/2020 07:38:00 PM EST [facility] [address] [place] [address] RESPIRATORY CARE REPORT ==== ---------NAME------- NUMBER SEX AGE ADMIT DISC. XRAY# F/C TYPEPOUND IRENE [id number] F 39 06/09/20 06/09/20 [id number] KBO E/R DATE OF : 1980 M/R# [id number] #: [id number] TR-08 LOCATION: EMERGENCY DEPT EKG [id number] COMP LETE:06/09/20 15:52 [place] [id number] PHYSICIAN: DIANDRA SY DECLAN Name Value Range Interpretation Code Description Data Luzmaria rce(s) Supporting Document(s) ID Date Data Source [id number] 06/09/2020 12:49:00 PM EST [facility] 1 General Instructions [facility] Emergency Department [address] [place] [address] Phone #: ext- [phone] 06/09/2020 12:39 Patient: [...] ADDITIONAL INFORMATIONViral Gastroenteritis (Adult) 2 General Instructions [facility] Emergency Department [address] [place] [address] Phone #: ext- [phone] 06/09/2020 12:39 - [...] of bowel control Headache 3 General Instructions [facility] Emergency Department [address] [place] [address] Phone #: ext- [phone] 06/09/2020 12:39 Patient: [...] with soap and water or use alcohol-based plumber apprentice to prevent the spread of infection. Wash your hands after touching anyone who is sick. Wash your hands or use alcohol-based plumber apprentice after using the toilet and before meals. [...] Keep uncooked meats away from cooked and dbxgh-ht-htw foods.MedicineYou may use acetaminophen or NSAID medicines [...] spicy, or fried foods. 4 General Instructions [facility] Emergency Department [address] [place] [address] Phone #: ext- [phone] 06/09/2020 12:39 Patient: [...] your provider if you don't get better xuarcz90 hours or if diarrhea lasts more than a week. Also follow up if you are unable to keep down liquidsand get dehydrated. If a stool (diarrhea) sample was taken, call as directed for the results.Call 911 5 General Instructions [facility] Emergency Department [address] [place] [address] Phone #: ext- [phone] 06/09/2020 12:39 Patient: [...] directed by your healthcare provider Bob kerns [phone] [employer]. [address] [place] [address]. All rights reserved. This information is not intended as asubstitute for professional medical care. Always follow your healthcare professional's instructions.Bladder Infection, Female (Adult) 6 General Instructions [facility] Emergency Department [address] [place] [address] Phone #: ext- [phone] 06/09/2020 12:39 Patient: [...] above the pubic bone. 7 General Instructions [facility] Emergency Department [address] [place] [address] Phone #: ext- [phone] 06/09/2020 12:39 Patient: [...] more serious kidney infection.Medicines 8 General Instructions [facility] Emergency Department [address] [place] [address] Phone #: ext- [phone] 06/09/2020 12:39 Patient: [...] will affect your treatment. 9 General Instructions [facility] Emergency Department [address] [place] [address] Phone #: ext- [phone] 06/09/2020 12:39 Patient: [...] swelling in the outer vaginal area (labia) [phone] [employer]. [address] [facility], [place] [address]. All rights reserved. This information is not [...] like cocaine and amphetamine. 10 General Instructions [facility] Emergency Department [address] [place] [address] Phone #: ext- [phone] 06/09/2020 12:39 Patient: [...] of salt when cooking. 11 General Instructions [facility] Emergency Department [address] [place] [address] Phone #: ext- [phone] 06/09/2020 12:39 Patient: IRENE OCHOA Sex: F : 1980 Age: 39y Start an exercise program. Talk with your healthcare provider about what exercise program is best for you. It doesn't have to be difficult. Even brisk walking for 20 minutes 3 times a week is a good form of exercise. Avoid medicines that stimulates the heart. This includes many ngyc-rdc-jcyolgi cold and sinus decongestant pills and sprays, as well as diet pills. Check the warnings about high blood pressure on the label. Before purchasing any fpka-rpj-ccsqdpx medicines or supplements, always ask the pharmacist [...] on home blood pressure monitoring from the [employer]. Don't smoke or drink coffee for [...] manual for an illustration. 12 General Instructions [facility] Emergency Department [address] [place] [address] Phone #: ext- [phone] 06/09/2020 12:39 [id number] Sex: F : 1980 Age: 39y Take [...] Trouble speaking or seeing 13 General Instructions [facility] Emergency Department [address] [place] [address] Phone #: ext- [phone] 06/09/2020 12:39 Patient: IRENE OCHOA Sex: F : 1980 Age: 39y [phone] [employer]. [address] [place] [address], [place] [id number]. All rights reserved. This information is not intended as asubstitute for professional medical care. Always follow your healthcare professional's instructions.[place] DietYour healthcare provider may recommend a bland [...] or rye bread, alcon or soda crackers, [place] toast, plain rolls, bagelsAvoid: Whole-grain breadCerealOK: Refined cereals: cooked or ready to eatAvoid: Whole-grain cereals and granola, or those containing bran, seeds or nutsDesserts 14 General Instructions [facility] Emergency Department [address] [place] [address] Phone #: ext- [phone] 06/09/2020 12:39 Patient: [...] extracts, umer, cinnamon, thyme, mace, allspice, paprikaAvoid: Pigeon powder, cloves, pepper, seed spices, garlic, gravy pickles, highly seasoned saladdressings 15 General Instructions [facility] Emergency Department [address] [place] [address] Phone #: ext- [phone] 06/09/2020 12:39 Patient: IRENE OCHOA Sex: F : 1980 Age: 39y [phone] [employer]. [address] [place] [address]. All rights reserved. This information is not [...] most grocery stores. You don't need aprescription. [phone] [employer]. [address] [place] [address], [place] [address]. All rights reserved. This information is not intended as asubstitute for professional medical care. Always follow your healthcare professional's instructions. 16 General Instructions [facility] Emergency Department [address] [place] [address] Phone #: ext- [phone] 06/09/2020 12:39 Patient: IRENE OCHOA Sex: F : 1980 Age: 39yYou have been given the following additional information:Gastroenteritis, Viral (Adult)Bladder Infection, Female (Adult)High Blood Pressure, Established, Out of ControlDiet, [place] (Adult)Clear Liquid DietNo strenuous activity until better. Rest at home for two days.(Electronically signed by LUIS Knox 06/09/2020 18:38) Name Value Range Interpretation Code Description Data Luzmaria rce(s) Supporting Document(s) ID Date Data Source [id number] 06/09/2020 12:49:00 PM [facility] 1 Clinical Report - Nurses [facility] Emergency Department [address] [place] [address] Phone #: ext- [phone] 06/09/2020 12:39 Patient: IRENE OCHOA Sex: F : 1980 Age: 39yTRIAGEArrived by private vehicle. Historian: patient. Accompanied by family. ( infection in left foot has beenbeing treated, started treatment and then tuesday started vomitting).Acuity: LEVEL 3.Chief Complaint: ABDOMINAL PAIN, NAUSEA and VOMITING.Alert.Onset. (tuesday). She has had abdominal pain. The pain is described as generalized.Treatment MEDICAL IMAGING TECH:None.SEPSIS SCREEN: SIRS Screen negative. Sepsis Screen negative. [...] Browne R.N. 2 Clinical Report - Nurses [facility] Emergency Department [address] [place] [address] Phone #: ext- [phone] 06/09/2020 12:39 Patient: [...] treatment room. --12:48 06/09/20 Cee Browne R.N.PHYSICAL NXJQTKDTIN24:09 06/09/20. Ambulatory to room.GENERAL / NEURO / [...] Browne R.N. 3 Clinical Report - Nurses [facility] Emergency Department [address] [place] [address] Phone #: ext- [phone] 06/09/2020 12:39 Patient: IRENE OCHOA Sex: F : 1980 Age: 39y13:30 06/09/20. BP: 171/114. MAP: 133. HR: 98. RR: 18. O2 saturation: 99%. --13:30 06/09/20 Jen Landrum ER Bizb901:27 06/09/2020 Site #1 started via IV in [...] Santiago Franklin RNCardiac rhythm: normal sinus rhythm; (9412). EKG time: (13:25 06/09/2020). EKG was performed [...] protocol ;labeled in presence of the patient. (0532). --13:58 06/09/20 Santiago Franklin RN14:04 06/09/20. BP: 178/105. MAP: 129. HR: 88. RR: 16. O2 saturation: 98%. --14:04 06/09/20 Jen Landrum ER Mrmy471:00 06/09/2020 PROTONIX (Pantoprazole Sodium) IVP 40 mg [...] precautions initiated. Gowns and gloves in use. (4580). --14:10 06/09/20 Santiago Franklin RN14:27 06/09/20. BP: 173/107. MAP: 129. HR: 88. RR: 16. O2 saturation: 100%. --14:28 06/09/20 Jen Landrum ER Tech1 4 Clinical Report - Nurses [facility] Emergency Department [address] [place] [address] Phone #: ext- [phone] 06/09/2020 12:39 Patient: [...] saturation: 100%. --14:56 06/09/20 Jen Landrum ER Jjxe667:05 06/09/2020 Clonidine PO Tablets 0.1 mg given. Allergies verified and confirmed 5 rights. Informationreviewed with patient. --15:05 06/09/20 Santiago Franklin RN( Zane Sy notified B/P still elevated V/O clonidine received and given). --15:06 06/09/20 SAIDA Fuller15:28 06/09/20. BP: 169/106. MAP: 127. HR: 91. RR: 16. O2 saturation: 98%. --15:29 06/09/20 Jen Landrum ER [id number] transported to CT by wheelchair with mask and electromechanical assembly technician. (1540). --15:41 06/09/20 SAURABH Fulleratient returned from CT by wheelchair with mask and electromechanical assembly technician. (1550). --15:53 06/09/20 Mo mcdowell RN( 1555 pt stating feeling better after I V fluids). --15:54 06/09/20 Santiago Franklin RN15:59 06/09/20. BP: 169/107. MAP: 127. HR: 88. RR: 16. O2 saturation: 98%. --15:59 06/09/20 Rroy EDPancho, MERY Li [id number] patient name and birthdate: patient confirmed. Clean catch urine collected with return ofamber-colored urine; sample sent to lab for urinalysis. Specimen labeled in the presence of the patient(7955). --16:54 06/09/20 Santiago Franklin RN( 0345 P A notified of B/P with new [...] rights. Information 5 Clinical Report - Nurses [facility] Emergency Department [address] [place] [address], [place] [address] Phone #: ext- [phone] 06/09/2020 12:39 Patient: IRENE OCHOA Sex: F [...] same. The patient feels the same. Physician outpatient physical therapist assistant notified. --17:29 06/09/20 Santiago Franklin RN [...] have improved the patient feels better. Physician outpatient physical therapist assistant notified. --17:45 06/09/20 Santiago Franklin RN.DISPOSITION [...] Patient verbalized understanding. Written instructions provided in Bengali. The patient was discharged by the physician outpatient physical therapist assistant. She was discharged home and accompanied by spouse. She left ambulatory and via private vehicle. Spouse driving. --18:16 06/09/20 Santiago Franklin RN. 6 Clinical Report - Nurses [facility] Emergency Department [address] [place] [address] Phone #: vsi- [phone] 06/09/2020 12:39 Patient: IRENE OCHOA Sex: F : 1980 Age: 39yLocked/Released at 06/09/2020 18:36 by Santiago Franklin RN Name Value Range Interpretation Code Description Data Luzmaria rce(s) Supporting Document(s) ID Date Data Source [id number] 06/09/2020 12:49:00 PM EST [facility] 1 Clinical Report - Physicians/Mid Levels [facility] Emergency Department [address] [place] [address] Phone #: ext- [phone] 06/09/2020 12:39 Patient: [...] 2 C linical Report - Physicians/Mid Levels [facility] Emergency Department [address] [place] [address] Phone #: ext- [phone] 06/09/2020 12:39 Patient: IRENE OCHOA [facility]#: [id number] Sex: F : 1980 Age: 39y ITP. [...] No 3 Clinical Report - Physicians/Mid Levels [facility] Emergency Department [address] [place] [address] Phone #: ext- [phone] 06/09/2020 12:39 Patient: [...] making process. Troponin-T: (LAYNE: 06/09/2020 13:50) ( [facility] 06/09/2020 14:15) Final results Test Result Flag Units (Reference) TROPONIN T <0.01 NG/ML (0.00 - 0.10) TROPONIN T0.1 ng/ml Recommended as the clinical threshold value forTroponin T. Beta-HCG, Qual Serum: (LAYNE: 06/09/2020 13:50) ( [facility] 06/09/2020 14:08) Final results Test Result Flag Units (Reference) HCG SERUM QUAL NEGATIVE (NORMAL: NEGAT HCG SERUM QL REENTER NEGATIVE (NORMAL: NEGAT { KIT LOT # [id number] ){ KIT EXP DATE 04.08.21 ){ PROCEDURAL CONTROL VALID ) CBC w Diff: (LAYNE: 06/09/2020 13:50) ( [facility] 06/09/2020 14:03) Final results Test Result [...] 80.0) 4 Clinical Report - Physicians/Mid Levels [facility] Emergency Department [address] [place] [address] Phone #: ext- [phone] 1 08/10/2019 12:39 [...] Male GFR Interprentation 20-49 yrs >60 mL/min Mpwbiy02-78 yrs >56 mL/min Normal 60-69 yrs >49 mL/min Normal 70-79yrs>42 mL/min Normal 80 and above >35 mL/min Normal Female GFRInterpretation 20-39 yrs >60 mL/min Normal 40-49 yrs >58 mL/minNormal 50-59 yrs >51 mL/min Normal 60-69 yrs >45 mL/min Emtucb41-66 yrs >39 mL/min Normal 80 and above >32 mL/min NormalLactic Acid: (LAYNE: 06/09/2020 13:50) ( ScgRcvd 06/09/2020 14:07) Final results Test Result Flag Units (Reference) LACTIC ACID 3.2 H MMOL/L (0.2 - 2.2)Magnesium: (LAYNE: 06/09/2020 13:50) ( MsgRcvd 06/09/2020 14:17) Final results Test Result Flag Units (Reference) MAGNESIUM 2.0 MG/DL (1.7 - 2.2)Lipase: (LAYNE: 06/09/2020 13:50) ( ScgRcvd 06/09/2020 14:18) Final results 5 Clinical Report - Physicians/Mid Levels [facility] Emergency Department [address] [place] [address] Phone #: ext- [phone] 06/09/2020 12:39 Patient: [...] treatment. 6 Clinical Report - Physicians/Mid Levels [facility] Emergency Department [address] [place] [address] Phone #: ext- [phone] 06/09/2020 12:39 Patient: [...] 06/09/2020 18:38) 7Clinical Report - Physicians/Mid Levels [facility] Emergency Department [address] [place] [address] Phone #: ext- [phone] 06/09/2020 12:39 Patient: IRENE OCHOA Sex: F : 1980 Age: 39y Name Value Range Interpretation Code Description Data Luzmaria rce(s) Supporting Document(s) ID Date Data Source [id number] 06/13/2020 03:09:00 PM EST [facility] Name Value Range Interpretation Code Description Data Luzmaria rce(s) Supporting Document(s) CULTURE URINE [facility] _CULTURE URINE_$$[id number]$$[id number]$$[id number]$$[id number]$$[id number]$$[id number]$$[id number]$$[id number]$$[id number]$$ 191244$$[id number]$$945825$$[id number]$$[id number]$$850633$$061005$$[id number]$$[id number]$$921003$$ [id number]$$240976$$509586$$[id number]$$[id number]$$[id number]$$[id number]$$[id number] -- Continued on next page --Patient: DON BONILLA Order: [id number] Page 2Culture: CULTURE URINE Status: Final ==== -- Continued on next page --Patient: DON BONILLA Order: [id number] Page 2Culture: CULTURE URINE Status: Prelim =====$$[id number] DATE/TIME: 06/13/2020 11:06Culture: CULTURE URINE Status: FinalIsolate [...] 06/12/2020 01:49 ET Gram negative rodsUrine Culture,Comprehensive: Z1Awzgdhkull pneumoniae Flag: APatient: DON BONILLA Order: [id number] Page 3Culture: CULTURE URINE Status: Final ISOLATE [...] S S . . . . . .02357-0Toslpuslhx S S . . . . . .267-5Imipenem S S . . . . . .279-0Levofloxacin S S . . . . . .38125-9Adkxwjfsn S S . . . . . .6652- 2Nitrofurantoin R R . . . . . .363-2Piperacillin/Tazobactam I I . . . . . .412-7Tetracycline R R . . . . . .496-0Tobramycin S S . . . . . .508-2Trimethoprim/Sulfa R R . . . . . .516-5P1 Test perfo rmed by: Claudine Gonzales [facility] #: [id number] [address] [place] [address] [id number] [facility] [id number] Director : Sky Macedo MD NPI #:Air Pollution Auditor : 06/12/[email or web address] REF 06/13/[email or web address].SENT REF ID Date Data Source [id number] 06/09/2020 05:07:00 PM EST [facility] Name Value Range Interpretation Code Description Data Luzmaria rce(s) Supporting Document(s) URINALYSIS [facility] URINALYSIS SOURCE R [facility] COLOR yellow NORMAL: Yellow [facility] CLARITY clear NORMAL: Clear [facility] Specific gravity of Urine by Test strip 1.010 1.001 - 1.030 [facility] pH 6.5 5 - 9 [facility] Glucose [Mass/volume] in Urine by Test strip NORM NORMAL: Negat [facility] Bilirubin.total [Presence] in Urine by Test strip NEG NORMAL: Negative [facility] Ketones [Presence] in Urine by Test strip 15 NORMAL: Negative [facility] Protein [Mass/volume] in Urine by Test strip 30 NORMAL: Negat [facility] Nitrite [Presence] in Urine by Test strip NEG NORMAL: Negative [facility] BLOOD 50 NORMAL: Negative [facility] Leukocyte esterase [Presence] in Urine by Test strip 25 GENEVIEVE L: Negative [facility] Urobilinogen [Mass/volume] in Urine by Test strip NOR less alistair n 1.0 mg/dL [facility] MICROSCOPIC See Below [facility] ital WBC 1 - 3 NORMAL: NONE SEEN [facility] Erythrocytes [#/volume] in Urine by Test strip 1 - 3 NORMAL: NON E SEEN [facility] EPITHELIAL FEW NORMAL: NONE SEEN [facility] Bacteria [Presence] in Urine sediment by Light microscopy Tr sujata NORMAL: NONE SEEN [facility] ID Date Data Source [id number] 06/11/2020 08:12:00 AM [facility] Name Value Range Interpretation Code Description Data Luzmaria rce(s) Supporting Document(s) Cortisol [Mass/volume] in Serum or Plasma 36.2 ug/dL [facility] C ortisol AM 6.2 - 19.4 Cortisol PM 2.3 - 11.9 ID Date Data Source [id number] 06/09/2020 02:17:00 PM [facility] Name Value Range Interpretation Code Description Data Luzmaria rce(s) Supporting Document(s) COMPREHENSIVE METABOLIC PANEL [facility] COMPREHENSIVE METABOLIC PANEL Sodium [Moles/volume] in Serum or Plasma 139 mEq/L 134 - 153 [facility] Potassium [Moles/volume] in Serum or Plasma 3.5 mEq/L 3.6 - 5.0 L [facility] Chloride [Moles/volume] in Serum or Plasma 103 mEq/L 98 - 107 [facility] Carbon dioxide, total [Moles/volume] in Serum or Plasma 24 MEQ/L 22 - 30 [facility] Glucose [Mass/volume] in Serum or Plasma 112 MG/DL 65 - 110 H [facility] BUN 14 MG/DL 7 - 21 [facility] Creatinine [Mass/volume] in Serum or Plasma 0.6 MG/DL 0.7 - 1.5 L [facility] BUN/CREAT 23 8 - 27 [facility] al Protein [Mass/volume] in Serum or Plasma 6.9 G/DL 6.3 - 8.2 [facility] Albumin [Mass/volume] in Serum or Plasma 4.3 G/DL 3.9 - 5.0 [facility] Globulin [Mass/volume] in Serum by calculation 2.6 GM/DL 2.4 - 3.2 [facility] A/G RATIO 1.7 0.8 - 2.0 [facility] Calcium [Mass/volume] in Serum or Plasma 8.5 MG/DL 8.4 - 10.2 [facility] Bilirubin.total [Mass/volume] in Serum or Plasma 1.7 MG/DL 0.2 - 1.3 H [facility] Alkaline phosphatase [Enzymatic activity/volume] in Serum or Plasma 75 U/L 38 - 126 [facility] Aspartate aminotransferase [Enzymatic activity/volume] in Serum or Plasma 45 U/L 5 - 40 H [facility] Alanine aminotransferase [Enzymatic activity/volume] in Seru m or Plasma 23 U/L 7 - 56 [facility] Anion gap 3 in Serum or Plasma 12.0 mmol/L 8.0 - 16.0 [facility] AGE 39 yrs [facility] al NON-AA GFR >60 mL/min [facility] ital AFR AMER GFR >60 mL/min [facility] Male GFR In terprentation [...] >32 mL/min Normal ID Date Data Source [id number] 06/09/2020 02:17:00 PM [facility] Name Value Range Interpretation Code Description Data Luzmaria rce(s) Supporting Document(s) Lipase [Enzymatic activity/volume] in Serum or Plasma 15 U/L 13 - 60 [facility] ID Date Data Source [id number] 06/09/2020 02:17:00 PM [facility] Value Range Interpretation Code Description Data Luzmaria rce(s) Supporting Document(s) Magnesium [Mass/volume] in Serum or Plasma 2.0 MG/DL 1.7 - 2.2 [facility] ID Date Data Source [id number] 06/09/2020 02:15:00 PM [facility] Value Range Interpretation Code Description Data Luzmaria rce(s) Supporting Document(s) TROPONIN T <0.01 NG/ML 0.00 - 0.10 [facility] ospital TROPONIN T0.1 ng/ml Recommended as the c linical threshold value forTroponin T. ID Date Data Source [id number] 06/09/2020 02:08:00 PM [facility] Value Range Interpretation Code Description Data Luzmaria rce(s) Supporting Document(s) HCG SERUM QUAL NEGATIVE NORMAL: NEGATIVE [facility] HCG SERUM QL REENTER NEGATIVE NORMAL: NEGATIVE [facility] { KIT LOT # [id number] ){ KIT EXP DATE 04.08.21 ){ PROCEDURAL CONTROL VALID ) ID Date Data Source [id number] 06/09/2020 02:07:00 PM [facility] Name Value Range Interpretation Code Description Data Luzmaria rce(s) Supporting Document(s) Lactate [Moles/volume] in Serum or Plasma 3.2 MMOL/L 0.2 - 2.2 H [facility] ID Date Data Source [id number] 06/09/2020 02:02:00 PM [facility] Value Range Interpretation Code Description Data Luzmaria rce(s) Supporting Document(s) CBC W/AUTOMATED DIFF [facility] COMPLETE BLOOD COUNT Leukocytes [#/volume] in Blood by Automated count 4.3 10^3/uL 4.2 - 1 1.0 [facility] Erythrocytes [#/volume] in Blood by Automated count 4.80 10^6/uL 4. 20 - 5.40 [facility] Hemoglobin [Mass/volume] in Blood 16.2 g/dL 12.0 - 16.0 H [facility] Hematocrit [Volume Fraction] of Blood by Automated count 45.9 % 3 7.0 - 47.0 [facility] Erythrocyte mean corpuscular volume [Entitic volume] by Auto mated count 95.6 fL 81.0 - 101 [facility] Erythrocyte mean corpuscular hemoglobin [Entitic mass] by Automated count 33.8 pg 27.0 - 34.0 [facility] Erythrocyte mean corpuscular hemoglobin concentration [Mass/volume] by Automated count 35.3 g/dL 31.0 - 36.0 [facility] Erythrocyte distribution width [Ratio] by Automated count 12.7 % 11.5 - 14.5 [facility] Platelets [#/volume] in Blood by Automated count 96 10^3/uL 150 - 450 L [facility] Platelet mean volume [Entitic volume] in Blood by Automated count 10.5 fL 7.4 - 10.4 H [facility] Neutrophils/100 leukocytes in Blood by Automated count 64.3 % 37. 0 - 80.0 [facility] Lymphocytes/100 leukocytes in Blood by Manual count 25.6 % 25.0 - 40.0 [facility] Monocytes/100 leukocytes in Blood by Automated count 8.7 % 3.0 - 8.0 H [facility] Eosinophils/100 leukocytes in Blood by Automated count 0.2 % 0.0 - 7.0 [facility] Basophils/100 leukocytes in Blood by Automated count 0.5 % 0.0 - 2.5 [facility] %IG 0.7 % 0.0 - 0.0 [facility] %NRBC 0.0 % 0.0 - 0.0 [facility] al Neutrophils [#/volume] in Blood by Automated count 2.73 10^3/uL 2.00 - 6.90 [facility] Lymphocytes [#/volume] in Blood by Automated count 1.09 10^3/uL 0.60 - 3.40 [facility] Monocytes [#/volume] in Blood by Automated count 0.37 10^3/uL 0.00 - 0.90 [facility] Eosinophils [#/volume] in Blood by Automated count 0.01 10^3/uL 0.00 - 0.70 [facility] Basophils [#/volume] in Blood by Automated count 0.02 10^3/uL 0.00 - 0.20 [facility] #IG 0.03 10^3/uL 0.00 - 0.10 [facility] ospital #NRBC 0.00 10^3/uL 0.00 - 0.00 [facility] MANUAL DIFF NOT INDICATED [facility] RBC MORPH NOT INDICATED [facility] spital ID Date Data Source [id number] 06/16/2020 02:12:00 PM EST [facility] Name Value Range Interpretation Code Description Data Luzmaria rce(s) Supporting Document(s) Urine Culture [facility] ospital ID Date Data Source [id number] 06/16/2020 02:12:00 PM EST [facility] Name Value Range Interpretation Code Description Data Luzmaria rce(s) Supporting Document(s) Amoxicillin/Clavulanic Acid Susc eptible. Indicates for microbiology susceptibilities only. [facility] Cefazolin Susceptible. Indicates for microbiol ogy susceptibilities only. [facility] Cefepime Susceptible. Indicates for microbiol ogy susceptibilities only. [facility] Ceftriaxone Susceptible. Indicates for m icrobiology susceptibilities only. [facility] Ciprofloxacin Susceptible. Ind icates for microbiology susceptibilities only. [facility] Ertapenem Susceptible. Indicates for microbiol ogy susceptibilities only. [facility] Gentamicin Susceptible. Indicates for microbiol ogy susceptibilities only. [facility] Imipenem Susceptible. Indicates for microbiol ogy susceptibilities only. [facility] Meropenem Susceptible. Indicates for microbiol ogy susceptibilities only. [facility] Levofloxacin Susceptible. Indicates for m icrobiology susceptibilities only. [facility] Nitrofurantoin 128 Results entered -- not verified [facility] Pipercillin/Tazobactam 8 Susceptib le. Indicates for microbiology susceptibilities only. [facility] Trimeth/Sulfamethoxazole Suscept ible. Indicates for microbiology susceptibilities only. [facility] ID Date Data Source [id number] 05/16/2020 08:39:00 AM EST [facility] spital QUANTITY: >100,000/mL {KLEBSIELLA P NEUMONIAE} [facility] PNEUMONIAES[facility] Name Value Range Interpretation Code Description Data [facility] rce(s) Supporting Document(s) ID Date Data Source [id number] 05/16/2020 08:39:00 AM EST [facility] spital QUANTITY: >100,000/mL {KLEBSIELLA P NEUMONIAE} [facility]UM[facility] Name Value Range Interpretation Code Description Data [facility] rce(s) Supporting Document(s) Amoxicillin/Clavulanic Acid Susc eptible. Indicates for microbiology susceptibilities only. [facility] Cefazolin Susceptible. Indicates for microbiol ogy susceptibilities only. [facility] Cefepime Susceptible. Indicates for microbiol ogy susceptibilities only. [facility] ESBL - [facility] Ceftriaxone Susceptible. Indicates for m icrobiology susceptibilities only. [facility] Ciprofloxacin Susceptible. Ind icates for microbiology susceptibilities only. [facility] Ertapenem Susceptible. Indicates for microbiol ogy susceptibilities only. [facility] Gentamicin Susceptible. Indicates for microbiol ogy susceptibilities only. [facility] Imipenem Susceptible. Indicates for microbiol ogy susceptibilities only. [facility] Meropenem Susceptible. Indicates for microbiol ogy susceptibilities only. [facility] Levofloxacin Susceptible. Indicates for m icrobiology susceptibilities only. [facility] Nitrofurantoin 128 Results entered -- not verified [facility] Pipercillin/Tazobactam 8 Susceptib le. Indicates for microbiology susceptibilities only. [facility] Trimeth/Sulfamethoxazole Suscept ible. Indicates for microbiology susceptibilities only. [facility] ID Date Data Source [id number] 08/19/2020 03:10:00 PM EST [facility] Name Value Range Interpretation Code Description Data Luzmaria rce(s) Supporting Document(s) Thyroglobulin Antibody result <4.0 Normal (applies t o non-numeric results) [facility] ADDITIONAL INFORMATIO N The thyroglobulin antibody testing method is an immunoenzymatic assay manufactured by [employer]. and performed on the [employer] DXI 800. Values obtained from different assay methods or kits may be different and cannot be used interchangeably. The results cannot be interpreted as absolute evidence for the presence or absence of malignant disease. Test Performed by: [place] [address] Air Pollution Auditor: Vicente Suárez M.D. Ph.D.; CLIA# [id number] ID Date Data Source [id number] 08/19/2020 03:09:00 PM [facility] Value Range Interpretation Code Description Data Luzmaria rce(s) Supporting Document(s) Thyroperoxidase Ab Normal (applies to non-numer ic results) [facility] Test performed [place] [address] ID Date Data Source [id number] 08/19/2020 02:52:00 PM [facility] Value Range Interpretation Code Description Data Luzmaria rce(s) Supporting Document(s) Thyroperoxidase Ab Normal (applies to non-numer ic results) [facility] Test performed or referred by The [address] [address] ID Date Data Source [id number] 08/19/2020 02:52:00 PM [facility] Value Range Interpretation Code Description Data Luzmaria rce(s) Supporting Document(s) Thyroglobulin Antibody result <4.0 Normal (applies t o non-numeric results) [facility] ADDITIONAL INFORMATIO N The thyroglobulin antibody testing method is an immunoenzymatic assay manufactured by [employer] and performed on the [employer] DXI 800. Values obtained from different assay methods or kits may be different and cannot be used interchangeably. The results cannot be interpreted as absolute evidence for the presence or absence of malignant disease. Test Performed by: [facility] [address] [place] [address] Air Pollution Auditor: Vicente Suárez M.D. Ph.D.; CLIA# [id number] ID Date Data Source [id number] 06/16/2020 02:12:[address] [facility] Name Value Range Interpretation Code Description Data Luzmaria rce(s) Supporting Document(s) Creatinine,Urine Normal (applies to non-numeric results) [facility] Interpret with care as there is no estab lished reference range associated with this assay's methodology that pertains to this particular sex and/or age. Microalbumin,Urine <1.7 Normal (applies to non-numer ic results) [facility] Albumin/Creatinine Ratio,Urine Normal (applies to non-numeric results) [facility] Test Performed By: [facility] [address] [place] [address] Director: Modesto Joshi MD Reference Ranges for Microalbumin,spot: Normal <30 ug/mg creatinine Microalbuminuria 30-300 ug/mg creatinine Clinical Albuminuria >300 ug/mg creatinine ID Date Data Source [id number] 06/16/2020 02:12:[address] [facility] Name Value Range Interpretation Code Description Data Luzmaria rce(s) Supporting Document(s) T3 (Tri-Iodothyronine) 60.0-181.0 Normal (applies to non-n umeric results) [facility] Test Performed By: [facility] [address] [place] [address] Director: Modesto Joshi MD ID Date Data Source [id number] 06/16/2020 02:12:[address] [facility] Name Value Range Interpretation Code Description Data Luzmaria rce(s) Supporting Document(s) CPK 59 U/L 26-192 Normal (applies to non-numeric resul ts) [facility] Test Performed By: [facility] [address] [place] [address] Director: Modesto Joshi MD ID Date Data Source [id number] 06/16/2020 02:12:[address] [facility] Name Value Range Interpretation Code Description Data Luzmaria rce(s) Supporting Document(s) T4 (Thyroxine) 4.8-13.9 Normal (applies to non-numeric r esults) [facility] Test Performed By: [facility] [address] [place] [address] Director: Modesto Joshi MD ID Date Data Source [id number] 06/16/2020 02:12:[address] [facility] Name Value Range Interpretation Code Description Data Luzmaria rce(s) Supporting Document(s) Free T3 2.18-3.98 Normal (applies to non-numeric resul ts) [facility] Test Performed By: [facility] [address] [place] [address] Director: Modesto Joshi MD ID Date Data Source [id number] 05/15/2020 04:42:00 PM [facility] MB if CPK is elevated? Y MB if CPK is elevated? Y MB if CPK is elevated? Y Name Value Range Interpretation Code Description Data Luzmaria rce(s) Supporting Document(s) CPK result 59 U/L 26-192 Normal (applies to non-numeric resul ts) [facility] Test Performed By: [facility] [address] [place] [address] Director: Modesto Joshi MD ID Date Data Source [id number] 05/15/2020 04:42:00 PM [facility] MB if CPK is elevated? Y MB if CPK is elevated? Y MB if CPK is elevated? Y Name Value Range Interpretation Code Description Data Luzmaria rce(s) Supporting Document(s) Free T3 result 2.18-3.98 Normal (applies to non-numeric r esults) [facility] Test Performed By: [facility] [address] [place] [address] Director: Modesto Joshi MD T3 result 60.0-181.0 Normal (applies to non-numeric resul ts) [facility] Test Performed By: [facility] [address] [place] [address] Director: Modesto Joshi MD ID Date Data Source [id number] 05/15/2020 04:42:00 PM EST [facility] MB if CPK is elevated? Y MB if CPK is elevated? Y MB if CPK is elevated? Y Name Value Range Interpretation Code Description Data Luzmaria rce(s) Supporting Document(s) T4 result 4.8-13.9 Normal (applies to non-numeric resul ts) [facility] Test Performed By: [facility] [address] [place] [address] Director: Modesto Joshi MD ID Date Data Source [id number] 05/15/2020 07:09:00 AM [facility] Name Value Range Interpretation Code Description Data Luzmaria rce(s) Supporting Document(s) UMALB Urine Creatinine result Normal (applies t o non-numeric results) [facility] Interpret with care as there is no estab lished reference range associated with this assay's methodology that pertains to this particular sex and/or age. [facility] Microalbumin,Ur result <1.7 Normal (applies to non-numeric results) [facility]AL[facility] Alb/Cre Ratio,Ur result Normal (applies t o non-numeric results) [facility] Test Performed By: [facility] [address] [place] [address] Director: Modesto Joshi MD Reference Ranges for Microalbumin,spot: Normal <30 ug/mg creatinine Microalbuminuria 30-300 ug/mg creatinine Clinical Albuminuria >300 ug/mg creatinine ID Date Data Source [id number] 05/14/2020 04:11:00 PM [facility] Name Value Range Interpretation Code Description Data Luzmaria rce(s) Supporting Document(s) White Blood Count 3.5-10.5 Normal (applies to non-numeri c results) [facility] Red Blood Count 3.90-5.00 Normal (applies to non-numeric results) [facility] Hemoglobin 12.0-15.5 Normal (applies to non-numeric resul ts) [facility] Hematocrit 34.9-44.5 Normal (applies to non-numeric resul ts) [facility] Mean Corpuscular Volume 81.2-95.1 Above high normal [facility] Mean Corpuscular Hgb 25.6-32.2 Above high normal [facility] Mean Corpuscular Hgb Conc 32.0-36.0 Normal (applies to no n-numeric results) [facility] Red Cell Distribution Width 11.9-15.5 Normal (appli es to non-numeric results) [facility] Platelet Count 71 x10 3/uL 150-450 Below low normal [facility] Mean Platelet Volume 9.4-12.4 Normal (applies to non-num dc results) [facility] Neutrophils% (Auto) 31.0-71.0 Normal (applies to non-nume juliette results) [facility] Lymphocytes% (Auto) 20.0-55.0 Normal (applies to non-nume juliette results) [facility] Monocytes% (Auto) 4.0-12.0 Normal (applies to non-numeri c results) [facility] Eosinophils% (Auto) 1.0-8.0 Below low normal [facility] Basophils% (Auto) 0.0-2.0 Normal (applies to non-numeri c results) [facility] Immature Granulocytes% (Auto) 0.0-2.0 Normal (ced lies to non-numeric results) [facility] Neutrophils# (Auto) 1.50-6.20 Normal (applies to non-nume juliette results) [facility] Lymphocytes# (Auto) 1.20-4.00 Normal (applies to non-nume juliette results) [facility] Monocytes# (Auto) 0.00-0.90 Normal (applies to non-numeri c results) [facility] Eosinophils# (Auto) 0.00-0.50 Normal (applies to non-nume juliette results) [facility] Basophils# (Auto) 0.00-0.20 Normal (applies to non-numeri c results) [facility] Immature Granulocytes# (Auto) 0.00-7.00 No rmal (applies to non-numeric results) [facility] Slide Reviewed By Normal (applies to non-numeri c results) [facility] Slide has been reviewed and findings con firmed by a technologist/solar installation technician. ID Date Data Source [id number] 05/14/2020 03:34:00 PM EST [facility] C&S IF INDICATED Name Value Range Interpretation Code Description Data Luzmaria rce(s) Supporting Document(s) Color,Urine Colorl-Dk Y Normal (applies to non-numeric res ults) [facility] Clarity,Urine Clear Normal (applies to non-numeric re sults) [facility] Specific [place],Urine 1.005-1.030 Normal (applies to non- numeric results) [facility] pH,Urine 5.0-8.0 Normal (applies to non-numeric resul ts) [facility] Protein,Urine Negative Normal (applies to non-numeric re sults) [facility] Glucose,Urine Negative Normal (applies to non-numeric re sults) [facility] Ketones,Urine Negative Normal (applies to non-numeric re sults) [facility] Blood,Urine Negative [facility] Bil[facility] Negative Normal (applies to non-numeric results) [facility] Urobilinogen,Urine 0.2-1.0 Normal (applies to non-numer ic results) [facility] Leukocyte Esterase,Urine Negative Normal (applies to non -numeric results) [facility] Nitrite,Urine Negative Normal (applies to non-numeric re sults) [facility] RBC,Urine None Seen [facility] WBC,Urine None Seen [facility] Casts,Urine None Seen Normal (applies to non-numeric resu lts) [facility] Squamous Cells,Urine None Seen [facility] Bacteria,Urine None Seen [facility] ital ID Date Data Source [id number] 05/14/2020 02:56:00 PM EST [facility] Name Value Range Interpretation Code Description Data Luzmaria rce(s) Supporting Document(s) Sodium 139 mmol/L 136-145 Normal (applies to non-numeric resul ts) [facility] Potassium 3.5-5.1 Below low normal [facility] spital Chloride 101 mmol/L 98-107 Normal (applies to non-numeric resul ts) [facility] Carbon Dioxide CO2 21-32 Normal (applies to non-numer ic results) [facility] Anion Gap 5.0-16.0 Normal (applies to non-numeric resul ts) [facility] BUN 13 mg/dL 7-18 Normal (applies to non-numeric results) [facility] Creatinine,Serum 0.7-1.2 Normal (applies to non-numeric results) [facility] GFR >60 Normal (applies to non-numeric results) [facility] Glucose Level 82 mg/dL 60-99 Normal (applies to non-numeric re sults) [facility] Reference range is only applicable when patient is fasting Note the following drug interference: Sulfasalazine Sulfapyridine Can see falsely depressed Can see falsely elevated result with up to 17% results with up to 11% decrease in measurement increase in measurement Recommend patients be collected for this test prior to administration of either drug. Calcium 8.5-10.1 Below low normal [facility] spital Bilirubin,Total 0.1-1.9 Normal (applies to non-numeric results) [facility] SGOT(AST) 33 U/L 15-37 Normal (applies to non-numeric resul ts) [facility] Note the following drug interference: Sulfasalazine Sulfapyridine Can see falsely depressed Can see falsely elevated result with up to 10% results with up to 10% decrease in measurement increase in measurement Recommend patients be collected for this test prior to administration of either drug. SGPT(ALT) 37 U/L 12-78 Normal (applies to non-numeric resul ts) [facility] Note the following drug interference: Sulfasalazine Sulfapyridine Can see falsely depressed Can see falsely elevated result with up to 29% results with up to 10% decrease in measurement increase in measurement Recommend patients be collected for this test prior to administration of either drug. Alkaline Phosphatase 67 U/L 38-126 Normal (applies to non-num dc results) [facility] can increase Alkaline Phosp le vels up to 2 times the normal adult value. Normal values for children and adolescents are 2 to 3 times the normal adult value. Total Protein 6.0-8.2 Normal (applies to non-numeric re sults) [facility] Albumin Level 3.4-5.0 Normal (applies to non-numeric re sults) [facility] ID Date Data Source [id number] 05/14/2020 02:56:00 PM [facility] Name Value Range Interpretation Code Description Data Luzmaria rce(s) Supporting Document(s) Triglycerides 252 mg/dL <150 Above high normal [facility] Cholesterol 183 mg/dL 100-200 Normal (applies to non-numeric resu lts) [facility] LDL Cholesterol Calculated 71 0-130 Normal (applies to n on-numeric results) [facility] HDL Cholesterol 62 mg/dL 40-60 Above high normal [facility] Cholesterol/HDL Ratio 3.6-6.7 Below low normal [facility] ID Date Data Source [id number] 05/14/2020 02:56:00 PM [facility] Name Value Range Interpretation Code Description Data Luzmaria rce(s) Supporting Document(s) Free T4 (Free Thyroxine) 0.76-1.46 Normal (applies to non -numeric results) [facility] ID Date Data Source [id number] 05/14/2020 02:56:00 PM [facility] Name Value Range Interpretation Code Description Data Luzmaria rce(s) Supporting Document(s) Thyroid Stimulate Hormone TSH 0.358-3.74 No rmal (applies to non-numeric results) [facility] ID Date Data Source [id number] 05/21/2020 08:39:00 AM [facility] Imaging Services Department Imaging Report [address], [place] [address] %(RAD)RES..[email or web address].filter("line") Name: IRENE ZAVALETA : 1980 Age/Sex: 39F Ordering Provider: LUIS Duvall Med Rec #: [id number] Reg Status: DEP REF Room #: Date of Service: 05/14/20 Report Number: [id number] cc:LUIS Duvall Send Report To: [id number] XRP/XR Chest 2 View [Pa & Lat] [...] Date/Time: 05/19/20 1543 Transcribed Date/Time: 05/21/20 0839 Resolution Rep: [id number] Name Value Range Interpretation Code Description Data Luzmaria rce(s) Supporting Document(s) ID Date Data Source [id number] 05/14/2020 11:37:00 AM EST [facility] Name Value Range Interpretation Code Description Data Luzmaria rce(s) Supporting Document(s) Thyroid Stimulating Hormone 1.494 ME [facility] ([facility]) Creatine kinase [Enzymatic activity/volume] in Serum or Plasma 59 41-270 [facility] ([facility]) ID Date Data Source [id number] 05/14/2020 11:37:00 AM EST [facility] Name Value Range Interpretation Code Description Data Luzmaria rce(s) Supporting Document(s) HDL 62 40-60 [facility] Triglycerides 252 [facility]) Cholesterol 183 120-200 [facility] [place]) Chol/HDL Ratio 3.0 [facility] ([facility]) Cholesterol in LDL [Mass/volume] in Serum or Plasma by calculation 71 [facility] ([facility]) ID Date Data Source [id number] 05/14/2020 11:37:00 AM EST [facility] ([facility] Name Value Range Interpretation Code Description Data Luzmaria rce(s) Supporting Document(s) Albumin [Mass/volume] in Serum or Plasma 3.9 [facility] ([facility]) Alanine aminotransferase [Enzymatic activity/volume] in Serum or Pl asma 37 [facility] ([facility]) Carbon dioxide, total [Moles/volume] in Serum or Plasma 26.3 [facility] ([facility]) Chloride [Moles/volume] in Serum or Plasma 101 [facility] ([facility]) Calcium [Mass/volume] in Serum or Plasma 8.0 [facility] ([facility]) Alkaline phosphatase [Enzymatic activity/volume] in Serum or Plasma 6 7 [facility] ([facility]) Protein [Mass/volume] in Serum or Plasma 7.1 [facility] ([facility]) Potassium [Moles/volume] in Serum or Plasma 3.1 [facility] ([facility]) Aspartate aminotransferase [Enzymatic activity/volume] in Serum or Plasma 33 [facility] ([facility]) Sodium 139 [facility] Glucose 82 70-100 [facility] Urea nitrogen [Mass/volume] in Serum or Plasma 13 [facility] ([facility]) Creatinine For GFR 0.7 [facility] ([facility]) ID Date Data Source [id number] 05/14/2020 11:37:00 AM EST [facility] ([facility] Name Value Range Interpretation Code Description Data Luzmaria rce(s) Supporting Document(s) Red Blood Count 4.29 4.70-6.20 [facility] ([facility]) White Blood Count 5.7 4.3-10.9 [facility] ([facility]) Platelets 71 130-400 [facility] Hemoglobin 14.6 13.0-17.0 [facility] ([facility]) Hematocrit 42.1 39.0-50.0 [facility] ([facility]) ID Date Data Source [id number] 04/30/2020 12:00:00 AM EDT [facility] Name Value Range Interpretation Code Description Data Luzmaria rce(s) Supporting Document(s) SARS coronavirus 2 RNA [facility] This lab was ordered by [employer] and rep orted by [facility]. Procedure Social History Code Duration Value Status Description Data Source(s ) Smoking 10/14/2020 12:00:00 AM EDT Patient has never smoked co mpleted Patient has never smoked [facility] ([facility]) Vital Signs ID Date Data Source UNK Name Value Range Interpretation Code Description Data Source(s) Body mass index (BMI) [Ratio] 32.69 kg/m2 32.69 kg/m2 [facility] Systolic blood pressure 137 mm[Hg] 137 mm[Hg] [facility] Diastolic blood pressure 87 mm[Hg] 87 mm[Hg] [facility] Body surface area Derived from formula 2.16 m2 2.16 m2 [facility] Oxygen saturation in Arterial blood by Pulse oximetry 98 % 98 % [facility] Respiratory rate 18 /min 18 /min [facility] Body height 172.7200 cm 172.7200 cm [facility] Heart rate 98.0 /min 98.0 /min [facility] Body temperature 36.8 Madonna 36.8 Madonna [facility] Body weight 97.52 kg 97.52 kg [facility] Body weight 214.00 [lb_av] 214.00 [lb_av] [facility] ([facility]) Body height 68 [in_i] 68 [in_i] [facility] ([facility]) 5'8" Body mass index (BMI) [Ratio] 32.5 kg/m2 32.5 k g/m2 [facility] ([facility]) Systolic blood pressure--sitting 136 mm[Hg] 136 mm[Hg] [facility] ([facility]) Ra, large cuff Diastolic blood pressure--sitting 84 mm[Hg] 84 mm[Hg] [facility] ([facility]) Ra, large cuff Body height 68 [in_i] 68 [in_i] [facility] ([facility]) 5'8" Body mass index (BMI) [Ratio] 30.9 kg/m2 30.9 k g/m2 [facility] ([facility]) Heart rate 89 /min 89 /min [facility] ([facility]) Systolic blood pressure--sitting 100 mm[Hg] 100 mm[Hg] [facility] ([facility]) [employer] large cuff, Ra Diastolic blood pressure--sitting 74 mm[Hg] 74 mm[Hg] [facility] ([facility]) [employer] large cuff, Ra Body weight 203.00 [lb_av] 203.00 [lb_av] [facility] T ([facility]) Systolic blood pressure 142 mm[Hg] 142 mm[Hg] M [facility] ([facility]) Diastolic blood pressure 78 mm[Hg] 78 mm[Hg] [facility] ([facility]) Body height 58 [in_i] 58 [in_i] [facility] ([facility]) 4'10" Body weight 203.50 [lb_av] 203.50 [lb_av] [facility] T ([facility]) Body mass index (BMI) [Ratio] 42.5 kg/m2 42.5 k g/m2 [facility] [place] body weight 100 [lb_av] 100 [lb_av] [facility] T ([facility]) Body weight 92.308 kg 92.308 kg [facility] ([facility]) Body surface area Derived from formula 1.83 m2 1.83 m2 [facility] ([facility]) Systolic blood pressure--sitting 128 mm[Hg] 128 mm[Hg] [facility] ([facility]) Omron, adult cuff/Ra Diastolic blood pressure--sitting 95 mm[Hg] 95 mm[Hg] [facility] ([facility]) [employer], adult cuff/Ra Body weight 197.00 [lb_av] 197.00 [lb_av] [facility] ([facility]) Body height 68 [in_i] 68 [in_i] [facility] ([facility]) 5'8" Body mass index (BMI) [Ratio] 30.0 kg/m2 30.0 k g/m2 [facility] ([facility]) Heart rate 89 /min 89 /min [facility] ([facility]) Patient Treatment Plan of Care Planned Activity Planned Date Details Description Data Source (s) buspirone hydrochloride 7.5 MG Oral Tablet 04/09/2021 12:00:00 AM E DT [facility] Trazodone Hydrochloride 50 MG Oral Tablet 04/09/2021 12:00:00 AM ED T [facility] Levothyroxine Sodium 0.088 MG Oral Tablet 06/03/2020 12:00:00 AM [facility] Levothyroxine Sodium 0.088 MG Oral Tablet 05/10/2019 12:00:00 AM [facility]
[2021-04-30] MEDS ORDERED: NS 1,000 ML IV ONE (01:55)
[2021-04-30] MEDS ORDERED: METOCLOPRAMIDE INJ 10MG/2ML VIAL (J2765 PER 1) IV ONE (01:55)
[2021-04-30] MEDS: MORPHINE 4 MG/ML 1ML VIAL/SYRINGE (J2270) IV PRN ×2 (02:28→04:21)
--- OUTSIDE RECORDS SUMMARY | 2021-04-30 02:56 | CCD ---
Author Author [facility] Organization [facility] Address Unknown Phone Unavailable Care Team Providers Care Mushroom Cultivator Name Role Phone Servage, L Roxy MILK COLLECTOR Unavailable Unavailable Servage, L Roxy MILK COLLECTOR Unavailable Unavailable Servage, L Roxy MILK COLLECTOR Unavailable Unavailable Servage, L Roxy MILK COLLECTOR Unavailable Unavailable Servage, L Roxy MILK COLLECTOR Unavailable Unavailable Servage, L Roxy MILK COLLECTOR Unavailable Unavailable Servage, L Roxy MILK COLLECTOR Unavailable Unavailable Servage, L Roxy MILK COLLECTOR Unavailable Unavailable Servage, L Roxy MILK COLLECTOR Unavailable Unavailable Servage, L Roxy MILK COLLECTOR Unavailable Unavailable Servage, L Roxy MILK COLLECTOR Unavailable Unavailable Servage, L Roxy MILK COLLECTOR Unavailable Unavailable Servage, L Roxy MILK COLLECTOR Unavailable Unavailable Servage, L Roxy MILK COLLECTOR Unavailable Unavailable Servage, L Roxy MILK COLLECTOR Unavailable Unavailable Servage, L Roxy MILK COLLECTOR Unavailable Unavailable Servage, L Roxy MILK COLLECTOR Unavailable Unavailable Servage, L Roxy MILK COLLECTOR Unavailable Unavailable Servage, L Roxy MILK COLLECTOR Unavailable Unavailable Servage, L Roxy MILK COLLECTOR Unavailable Unavailable Servage, L Roxy MILK COLLECTOR Unavailable Unavailable Servage, L Roxy MILK COLLECTOR Unavailable Unavailable Servage, L Roxy MILK COLLECTOR Unavailable Unavailable Servage, L Roxy MILK COLLECTOR Unavailable Unavailable Servage, L Roxy MILK COLLECTOR Unavailable Unavailable Servage, L Roxy MILK COLLECTOR Unavailable Unavailable Servage, L Roxy MILK COLLECTOR Unavailable Unavailable Servage, L Roxy MILK COLLECTOR Unavailable Unavailable Servage, L Roxy MILK COLLECTOR Unavailable Unavailable Servage, L Roxy MILK COLLECTOR Unavailable Unavailable Servage, L Roxy MILK COLLECTOR Unavailable Unavailable Servage, L Roxy MILK COLLECTOR Unavailable Unavailable Servage, L Roxy MILK COLLECTOR Unavailable Unavailable Servage, L Roxy MILK COLLECTOR Unavailable Unavailable Servage, L Roxy MILK COLLECTOR Unavailable Unavailable Servage, L Roxy MILK COLLECTOR Unavailable Unavailable Servage, L Roxy MILK COLLECTOR Unavailable Unavailable Servage, L Roxy MILK COLLECTOR Unavailable Unavailable Servage, L Roxy MILK COLLECTOR Unavailable Unavailable Servage, L Roxy MILK COLLECTOR Unavailable Unavailable Servage, L Roxy MILK COLLECTOR Unavailable Unavailable Servage, L Roxy MILK COLLECTOR Unavailable Unavailable Servage, L Roxy MILK COLLECTOR Unavailable Unavailable Servage, L Roxy MILK COLLECTOR Unavailable Unavailable Servage, L Roxy MILK COLLECTOR Unavailable Unavailable Servage, L Roxy MILK COLLECTOR Unavailable Unavailable Servage, L Roxy MILK COLLECTOR Unavailable Unavailable Servage, L Roxy MILK COLLECTOR Unavailable Unavailable Servage, L Roxy MILK COLLECTOR Unavailable Unavailable Servage, L Roxy MILK COLLECTOR Unavailable Unavailable Servage, L Roxy MILK COLLECTOR Unavailable Unavailable Servage, L Roxy MILK COLLECTOR Unavailable Unavailable Servage, L Roxy MILK COLLECTOR Unavailable Unavailable Servage, L Roxy MILK COLLECTOR Unavailable Unavailable Servage, L Roxy MILK COLLECTOR Unavailable Unavailable Servage, L Roxy MILK COLLECTOR Unavailable Unavailable Servage, L Roxy MILK COLLECTOR Unavailable Unavailable Servage, L Roxy MILK COLLECTOR Unavailable Unavailable Servage, L Roxy MILK COLLECTOR Unavailable Unavailable Servage, L Roxy MILK COLLECTOR Unavailable Unavailable Servage, L Roxy MILK COLLECTOR Unavailable Unavailable Servage, L Roxy MILK COLLECTOR Unavailable Unavailable Servage, L Roxy MILK COLLECTOR Unavailable Unavailable Servage, L Roxy MILK COLLECTOR Unavailable Unavailable Servage, L Roxy MILK COLLECTOR Unavailable Unavailable Chandni, L Lo PA Unavailable [...] Unavailable Chandni, L Lo PA Unavailable Unavailable Channdi, L Lo PA Unavailable Unavailable Chandni, L [...] Unavailable Chandni, L Lo PA Unavailable Unavailable Chnadni, L Lo PA Unavailable Unavailable Chandni, L [...] is protected by Article 27-F of the [facility] Public Health law. If you continue you may have access to information: Regarding HIV / AIDS; Provided by facilities licensed or operated by the [facility] Office of Mental Health; or Provided by the [facility] Office for People With Developmental Disabilities. If such information is present, then the following [facility] mandated warning applies: This information has been [...] law may result in a fine or detention sentence or both. A general authorization for the release of medical or other information is NOT sufficient authorization for further disc losure. Allergies and Adverse Reactions Type Description Substance Reaction Status Data Source(s ) Environmental Allergy LATEX LATEX [facility] Family History Family Member Name Family Member Gender Family Member Status Date o f Status Description Data Source(s) Unknown Male Problem [facility] ([facility]) Unknown Unknown Problem [facility] ([facility]) mother,mgm Encounters Encounter Providers Location Date Indications Data Source(s ) Outpatient Attender: Lo SMITH Admitter: Lo Tariq PAReferrer: Lo Tariq PAConsultant: Lo SMITH 04/08 02:11:00 PM EDT - 04/08/2021 11:00:00 AM EDT [facility] PATIENT [facility] NEW PATIENT Patient discharged. Outpatient Attender: MARIS SMITH Main Office 04/08/2021 0 8:00:00 AM EDT [facility] ([facility]) Outpatient Attender: Steven MosherAttender: STEVEN MOSHER 07A -XXEGJOSA 01/08/2021 12:00:00 AM [facility] Outpatient Attender: Lo SMITH ED-HCCEDWPCP 01/2021 09:20:00 AM EDT - 01/07/2021 09:21:00 AM [facility] Patient discharged. Outpatient Attender: Lo SMITH -HCCEDWPCP 07/2020 03:30:00 PM EDT - 12/02/2020 03:31:00 PM [facility] Patient discharged. Outpatient Attender: STEVEN MOSHER 11/26/2020 12:00:00 AM [facility] Outpatient Attender: JOSÉ MIGUEL NEGRON MD Main Office 10/14/2020 08:00:00 AM EDT [facility] ([facility]) Outpatient Attender: Lo SMITH -HCCEDWPC 01/2021 04:15:00 PM EDT - 10/08/2020 04:16:00 PM EDT [facility] Patient discharged. Outpatient Attender: Car Smalls/Breanna/Lorenzo/Caity andujar 10/06/2020 01:15:00 PM EDT [facility] ([facility], ) Outpatient Attender: Lo Tariq ME ED-HCCEDWPC 07:03:00 AM EDT - 2020 07:04:00 AM EDT [facility] Patient discharged. Outpatient Attender: JOSÉ MIGUEL NEGRON MD Main Office 08/01/2020 09:45:00 AM EST [facility] ([facility] Outpatient Attender: Lo SMITH [facility] 04/2020 01:22:00 PM EST - 06/12/2020 01:23:00 PM EST [facility] Patient discharged. Outpatient Attender: Lo Tariq [facility] 03/2020 07:49:00 AM EST - 06/11/2020 07:50:00 AM [facility] Patient discharged. Emergency Attender: PITA Pearsonsuant: Roxy sanchez MILK COLLECTOR 06/09/2020 12:49:00 PM EST - 06/09/2020 06:15:[address] [facility] Patient discharged. Outpatient Attender: Lo Tariq [facility] 01/2020 12:41:00 PM EST - 06/09/2020 12:42:00 PM [facility] Patient discharged. Outpatient Attender: Lo Tariq [facility] 10/2019 01:36:00 PM EST - 06/06/2020 01:37:00 PM [facility] Patient discharged. Outpatient Attender: Lo SMITH [facility] 03:20:00 PM EST - 05/26/2020 03:21:00 PM [facility] Patient discharged. Outpatient Attender: Lo SMITH [facility] 06/2020 07:31:00 AM EST - 05/15/2020 07:32:00 AM EST [facility] Patient discharged. Outpatient Attender: UNKNOWN CPSCAORT-LABEJN 05/14/2020 03:12:00 PM E [facility] Outpatient Attender: Lo SMITH ED-LABGH 05/2020 12:17:00 PM EST - 05/14/2020 12:18:00 PM EST I10 E03.9 [facility] I10 E03.9 Patient discharged. Outpatient Attender: Lo SMITH -HCCEDWPCP 01:47:00 PM EDT - 04/21/2020 01:48:00 PM EDT [facility] Patient discharged. Medications Medication Brand Name Start Date Product Form Dose Route Admi nistrative Instructions Pharmacy Instructions Status Indications Reaction Description Data Source(s) 300 mg 04/20/2021 12:00:00 AM EDT capsule 20 TAKE ONE CAPSULE BY MOUTH EVERY 12 HOURS FOR 10 DAYS TAKE ONE CAPSULE BY MOUTH EVERY 12 HOURS FOR 10 DAYS S OLD: 04/20/2021 [facility] buspirone hydrochloride 7.5 MG Oral Tablet busPIRone H Cl 7.5MG Oral Tablet busPIRone HCl 7.5MG Oral Tablet 04/09/2021 12:00:00 AM EDT 1 TABLET BY MOUTH active <td>busPIRone H Cl 7.5MG Oral Tablet</td><td>04/09/2021</td><td>Unknown</td><td>BY MOUTH</td><td>TWICE A DAY</td><td>1 TABLET</td><td>254424</td><td>RxNorm</td><td>TAKE 1 TABLET BY MOUTH TWICE A DAY NEEDED</td> [facility] 7.5 mg 04/09/2021 12:00:00 AM EDT [...] <td>traZOD one hydrochloride 50MG Oral Tablet</td><td>04/09/2021</td><td>Unknown</td><td>BY MOUTH</td><td>AT BEDTIME</td><td></td><td>726707</td><td>RxNorm</td><td>TAKE 1-2 TABLET BY MOUTH AT BEDTIME</td> [facility] 50 mg 04/09/2021 12:00:00 AM EDT tablet 60 TAKE 1 TO 2 TABLETS BY MOUTH AT BEDTIME TAKE 1 TO 2 TABLETS BY MOUTH AT BEDTIME SOLD: 04/09/2021 [facility] Lisinopril 20 MG Oral Tablet Lisinopril 04/08/2021 12:00:00 AM EDT ORAL active [facility] ([facility] 20 mg 04/08/2021 12:00:00 AM EDT tablet 90 TAKE ONE TABLET BY MOUTH EVERY DAY TAKE ONE TABLET BY MOUTH EVERY DAY SOLD: 04/09/2021 [facility] Amlodipine 5 MG Oral Tablet Amlodipine Besylate 04/07/2021 12:00:00 A M EDT ORAL completed [facility] ([facility] Fenofibrate 48 MG Oral Tablet Fenofibrate 04/07/2021 12:00:00 AM EDT ORAL active [facility] ([facility]) 0.5 mg 03/29/2021 12:00:00 AM EDT tablet 60 TAKE ONE TABLET BY MOUTH TWICE A DAY MAXIMUM DAILY DOSE = 2 TAKE ONE TABLET BY MOUTH TWICE A DAY MAX IMUM DAILY DOSE = 2 SOLD: 03/29/2021 [facility] 0.5 mg 02/28/2021 12:00:00 AM [...] ONCE DAILY IMMEDIATELY AFTER DISSOLVING SOLD: 11/13/2020 [facility] 200 mg 11/12/2020 12:00:00 AM EDT [...] MAXIMUM DAILY DOSE = 4 SOLD: 10/22/2020 [facility] Flax Seeds 10/14/2020 12:00:00 AM EDT active [facility] ([facility]) Simethicone 80 MG Chewable Tablet [Mi-Acid Gas Relief] SD-Ac id Gas Relief 10/13/2020 12:00:00 AM EDT ORAL completed [facility] ([facility]) 10 mg 10/13/2020 12:00:00 AM EDT tablet 30 TAKE ONE TABLET BY MOUTH EVERY 6 HOURS NEEDED MAXIMUM DAILY DOSE = 4 TAKE ONE TABLET BY MOUTH EVERY 6 HOURS A S NEEDED MAXIMUM DAILY DOSE = 4 SOLD: 10/13/2020 [facility] Fenofibrate 48 MG Oral Tablet Fenofibrate 10/13/2020 12:00:00 AM EDT ORAL completed [facility] ([facility]) Levothyroxine Sodium 0.075 MG Oral Tablet Levothyroxine Sodi um 10/13/2020 12:00:00 AM EDT ORAL active M [facility] ([facility]) 24 HR Propranolol Hydrochloride 120 MG Extended Releas e Oral Capsule Propranolol HCL ER 10/13/2020 12:00:00 AM EDT ORAL completed [facility] ([facility]) 75 mcg 10/09/2020 12:00:00 AM EDT tablet [...] TWICE A DAY WITH MEALS SOLD: 09/18/2020 [employer] Metronidazole 500 MG Oral Tablet METRONIDAZOLE 09/18/2020 [...] AM EST completed [facility] ([facility] 24 HR Desvenlafaxine 25 MG Extended Release Oral Table t Desvenlafaxine Succinate ER 08/01/2020 12:00:00 AM EST ORAL completed [facility] ([facility] doxycycline hyclate 100 MG Oral Tablet Doxycycline Hyclate 0 07/31/2020 12:00:00 AM EST ORAL completed [facility] ([facility]) Levothyroxine Sodium 0.088 MG Oral Tablet Levothyroxine Sodi um 07/31/2020 12:00:00 AM EST ORAL completed [facility] ([facility]) 24 HR Desvenlafaxine 50 MG Extended Release Oral Table t Desvenlafaxine Succinate ER 07/31/2020 12:00:00 AM EST ORAL completed [facility] ([facility]) Spironolactone 25 MG Oral Tablet Spironolactone 07/31/2020 12:00:00 A M EST ORAL active [facility] ([facility] 88 mcg 07/08/2020 12:00:00 AM EST tablet [...] hypothyroidism Take 1 tablet by mouth Daily [facility] Other specified hypothyroidism 88 mcg 06/03/2020 12:00:00 [...] THREE TIMES A DAY NEEDED SOLD: 07/08/2020 [facility] Alprazolam 0.25 MG Oral Tablet ALPRAZOLAM [...] CAPSULE BY MOUTH EVERY DAY SOLD: 04/21/2020 [employer] Alprazolam 0.25 MG Oral Tablet ALPRAZOLAM 04/21/2020 [...] 1 TABLET AFTER 1-2 WEEKS SOLD: 04/21/2020 [facility] 88 mcg 05/10/2019 12:00:00 AM EST tablet 30 TAKE 1 TABLET BY MOUTH DAILY TAKE 1 TABLET BY MOUTH DAILY SOLD: 03/15/2020 [facility] Levothyroxine Sodium 0.088 MG Oral Table t Levothyroxine Sodium 88 MCG Oral Tablet (SYNTHROID, LEVOTHROID) Levothyroxine Sodium 88 MCG Oral Tablet (SYNTHROID, LEVOTHROID) 05/10/2019 12:00:00 AM EST 88 ug Oral active Other specified hypothyroidism Take 1 tablet by mouth Daily [facility] Other specified hypothyroidism 88 mcg 05/10/2019 12:00:00 AM EST tablet 30 TAKE 1 TABLET BY MOUTH DAILY TAKE 1 TABLET BY MOUTH DAILY SOLD: 04/20/2020 [facility] Insurance Providers Payer name Policy type / Coverage type Policy ID Covered constitution party ID Covered constitution party's relationship to james Policy James Plan Information [place] [employer] Commercial [id number] Family Dependent [id number] [facility] Trad/MX Commercial [id number] Family Dependent 802 [employer] [id number] SP [id number] [employer] [id number] SP [id number] [employer] [id number] [employer] U [id number] Self [id number] R U [id number] Self [id number] 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 [id number] Self [id number] Commercial [id number] Self [id number] ANSI-Not a Secondary Insurance [id number] [facility] [id number] SP [id number] [facility] [id number] SP [id number] [employer] Commercial [id number] Self [id number] [employer]OM[employer]-O/P [id number] 18 [id number] [employer] Commercial [id number] Self [id number] [employer] Commercial [id number] Self [employer] PPO P [id number] S [id number] [employer] [id number] SP [id number] [facility] [id number] undefined [id number] UMR [id number] S [id number] UMR -O/P [id number] 18 [id number] [facility] [id number] SP [id number] BS [facility] [id number] [facility] [id number] [facility] Commercial [id number] Self [id number] [facility] Commercial [id number] Self [id number] [facility] Commercial [id number] Self [id number] Problems, Conditions, and Diagnoses Code Display Name Description Problem Type Effective Dates Data Source(s) F411 Generalized anxiety disorder Generalized anxiety disor brandie Diagnosis 04/08/2021 02:11:00 PM EDT [facility] D693 Immune thrombocytopenic purpura Immune thrombocytopeni c purpura Diagnosis 04/08/2021 02:11:00 PM EDT [facility] R609 Edema, unspecified Edema, unspecified Diagnosis 02:11:00 PM EDT [facility] E039 Hypothyroidism, unspecified Hypothyroidism, unspecifie d Diagnosis 04/08/2021 02:11:00 PM EDT [facility] E782 Mixed hyperlipidemia Mixed hyperlipidemia Diagnosis 04/08/2021 02:11:00 PM EDT [facility] I10 Essential (primary) hypertension Essential (primary) h ypertension Diagnosis 04/08/2021 02:11:00 PM EDT [facility] R002 Palpitations Palpitations Diagnosis 04/08/2021 02:11:00 P M EDT [facility] [id number] Latex allergy status Latex allergy status Diagnosis 06/09/2020 12:49:00 PM [facility] Z9049 Acquired absence of other specified part s of digestive tract Acquired absence of other specified parts of digestive tract Diagnosis 12:49:00 PM [facility] E039 Hypothyroidism, unspecified Hypothyroidism, unspecifie d Diagnosis 06/09/2020 12:49:00 PM [facility] I10 Essential (primary) hypertension Essential (primary) h ypertension Diagnosis 06/09/2020 12:49:00 PM [facility] E869 Volume depletion, unspecified Volume depletion, unspec ified Diagnosis 06/09/2020 12:49:00 PM [facility] E860 Dehydration Dehydration Diagnosis 06/09/2020 12:49:00 PM [facility] N3001 Acute cystitis with hematuria Acute cystitis with elena turia Diagnosis 06/09/2020 12:49:00 PM [facility] A084 Viral intestinal infection, unspecified Viral intestinal infection, unspecified Diagnosis 06/09/2020 12:49:00 PM [facility] R1030 Lower abdominal pain, unspecified Lower abdomina l pain, unspecified Diagnosis 06/09/2020 12:49:00 PM [facility] I10 Essential (primary) hypertension ESSENTIAL (PRIMARY) H YPERTENSION Diagnosis [facility]/21[facility] Hypothy[facility], unspecified HYPOTHYROIDISM, UNSPECIFIE D Diagnosis 04/21/2020 [facility]47[facility] D69.3 Immune thrombocytopenic purpura IMMUNE THROMBOCYTOPENI C PURPURA Diagnosis 04/21/2020 01:47:00 PM [facility] F41.0 Panic disorder [episodic paroxysmal anxi ety] PANIC DISORDER [EPISODIC PAROXYSMAL ANXIETY] Diagnosis 04/21/2020 01:47:00 PM [facility] spital F41.1 Generalized anxiety disorder GENERALIZED ANXIETY DISOR BRANDIE Diagnosis 04/21/2020 01:47:00 PM [facility] R60.0 Edema Edema Problem 04/08/2021 12:00:00 AM ED T [facility] ([facility]) E78.1 Pure hyperglyceridemia Pure hyperglyceridemia Problem 10/14/2020 12:00:00 AM EDT [facility] ([facility]) [id number] Essential hypertension Essential hypertension Problem 09/29/2020 12:00:00 AM EDT [facility] ([facility], ) E78.5 Hyperlipidemia Hyperlipidemia Problem 08/01/2020 12:00: 00 AM EST [facility] ([facility]) F41.1 Generalized anxiety disorder Generalized anxiety disor brandie Problem 08/01/2020 12:00:00 AM EST [facility] ([facility]) R23.2 Flushing Flushing Problem 08/01/2020 12:00:00 AM ES T [facility] ([facility]) I10 Essential hypertension Essential hypertension Problem 08/01/2020 12:00:00 AM EST [facility] ([facility]) Z71.3 Dietary management surveillance Dietary management anna veillance Problem 08/01/2020 12:00:00 AM EST [facility] ([facility]) E66.09 Obesity Obesity Problem 08/01/2020 12:00:00 AM ES T [facility] ([facility]) R00.2 Palpitations Palpitations Problem 08/01/2020 12:00:00 A M EST [facility] ([facility]) Surgeries/Procedures Procedure Description Date Indications Data Source(s) OFFICE OUTPATIENT VISIT 15 MINUTES 04/08/2021 12:00:00 AM EDT [facility] ([facility]) External ECG Rec>48HR<7D Recording 03/24/2021 12:00:00 AM EDT [facility] ([facility]) External ECG Rec>48HR<7D Review & Interpretation 03/24 12:00:00 AM EDT [facility] ([facility]) OFFICE OUTPATIENT VISIT 15 MINUTES 10/14/2020 12:00:00 AM EDT [facility] ([facility]) ECG ROUTINE ECG W/LEAST 12 LDS W/I&R 08/01/2020 12:00: 00 AM EST [facility]) 16494 X-RAY EXAM CHEST 2 VIEWS 05/14/2020 12:00:00 AM [facility] ECG ROUTINE ECG W/LEAST 12 LDS TRCG ONLY W/O I&R ELECTROCARD IOGRAM TRACING 05/14/2020 12:00:00 AM [facility] THYROGLOBULIN ANTIBODY THYROGLOBULIN ANTIBODY 05/14/2020 12:00:00 A M [facility] MICROSOMAL ANTIBODIES EACH MICROSOMAL ANTIBODY EACH 05/14/2020 1 2:00:00 AM [facility] THYROXINE FREE ASSAY OF FREE THYROXINE 05/14/2020 12:00:00 AM [facility] THYROID STIMULATING HORMONE TSH ASSAY THYROID STIM HORMONE 1 07/14/2019 12:00:00 AM [facility] SUSCEPTIBLTY STDY ANTIMICRBIAL MICRO/AGAR DILUTJ MICROBE NAOMIE CEPTIBLE ANSHU 05/14/2020 12:00:00 AM [facility] URNLS DIP STICK/TABLET REAGENT AUTO MICROSCOPY URINALYSIS AU TO W/SCOPE 05/14/2020 12:00:00 AM [facility] COLLECTION VENOUS BLOOD VENIPUNCTURE ROUTINE VENIPUNCTURE 12:00:00 AM [facility] BLOOD COUNT COMPLETE AUTO&AUTO DIFRNTL WBC COUNT COMPLETE CB C W/AUTO DIFF WBC 05/14/2020 12:00:00 AM [facility] THYROXINE TOTAL ASSAY OF TOTAL THYROXINE 05/14/2020 12:00:00 AM [facility] CREATINE KINASE TOTAL ASSAY OF CK (CPK) 05/14/2020 12:00:00 AM [facility] ALBUMIN URINE MICROALBUMIN QUANTIATIVE UR ALBUMIN QUANTITATI VE 05/14/2020 12:00:00 AM [facility] CREATININE OTHER SOURCE ASSAY OF URINE CREATININE 05/14/2020 12:00: 00 AM [facility] TRIIODOTHYRONINE T3 FREE FREE ASSAY (FT-3) 05/14/2020 12:00:00 AM E [facility] TRIIODOTHYRONINE T3 TOTAL TT3 ASSAY TRIIODOTHYRONINE (T3) 12:00:00 AM [facility] LIPID PANEL LIPID PANEL 05/14/2020 12:00:00 AM [facility] COMPREHENSIVE METABOLIC PANEL COMPREHEN METABOLIC PANEL 05/04 12:00:00 AM [facility] OFFICE OUTPATIENT VISIT 10 MINUTES OFFICE/OUTPATIENT VISIT E ST 04/21/2020 12:00:00 AM T [facility] Results ID Date Data Source 1 04/23/2021 12:00:00 AM EDT [facility] Name Value Range Interpretation Code Description Data Luzmaria rce(s) Supporting Document(s) SARS-CoV2 Rapid PCR Negative [facility] This lab was ordered by [facility] and reported by [facility]. ID Date Data Source [id number] 04/20/2021 12:00:00 AM EDT [facility] Name Value Range Interpretation Code Description Data Luzmaria rce(s) Supporting Document(s) SARS-CoV2 Rapid Antigen Negative [facility] This lab was ordered by [facility] and reported by [facility]. ID Date Data Source [id number] 04/08/2021 09:26:00 AM EDT [facility] ([facility] Name Value Range Interpretation Code Description Data Luzmaria rce(s) Supporting Document(s) Glucose, Fasting 93 mg/dL 70-100 [facility] ([facility]) Blood Urea Nitrogen 12 mg/dL 7-18 [facility] ([facility] Creatinine For GFR 0.79 mg/dL 0.55-1.30 [facility] ([facility]) Sodium Level 140 meq/L 136-145 [facility] ([facility] Potassium Serum 3.7 meq/L 3.5-5.1 [facility] [facility] Glomerular Filtration Rate Laboratory test result [facility] ([facility]) <content>Units are mL/min/1.73 m2</content>
<content></content>
<content>Chronic Kidney Disease Staging per NKF:</content>
<content></content>
<content>Stage I & II GFR >=60 Normal to Mildly Decreased</content>
<content>Stage III GFR 30-59 Moderately Decreased</content>
<content>Stage IV GFR 15-29 Severely Decreased</content>
<content>Stage V GFR <15 Very Little GFR Left</content>
<content>ESRD GFR <15 on HUMAN RESOURCES FILE CLERK</content>
<content></content> Anion Gap 10 meq/L 8-16 [facility] ([facility] Carbon Dioxide Level 23 meq/L 21-32 [facility] ([facility]) Chloride Level 107 meq/L 98-107 [facility] ([facility]) Calcium Level 8.8 mg/dL 8.5-10.1 [facility] ([facility]) ID Date Data Source [id number] 04/08/2021 09:26:00 AM EDT [facility] ([facility] Name Value Range Interpretation Code Description Data Luzmaria rce(s) Supporting Document(s) Natriuretic peptide.B prohormone N-Terminal [Mass/volu me] in Serum or Plasma 25 pg/mL [facility] ([facility]) <content>note:<nlbl:demographic_changed> </content>
<content></content> ID Date Data Source [id number] 01/08/2021 01:27:05 PM EDT [facility] Name Value Range Interpretation Code Description Data Luzmaria rce(s) Supporting Document(s) Progress Note [facility] [id number] lbm [file] [id number] ID Date Data Source [id number] 01/08/2021 01:27:00 PM EDT [facility] Name Value Range Interpretation Code Description Data Luzmaria rce(s) Supporting Document(s) Progress Note [facility] [id number] lbm [file] ID Date Data Source [id number] 09/14/2020 02:48:00 PM EDT [facility] Name Value Range Interpretation Code Description Data Luzmaria rce(s) Supporting Document(s) SARS-CoV-2 (COVID 19) NEGATIVE - SARS-CoV-2 (COVID19) [facility] This lab was ordered by [facility] a nd reported by [facility]. ID Date Data Source [id number] 09/08/2020 11:56:00 AM EST [facility] Name Value Range Interpretation Code Description Data Luzmaria rce(s) Supporting Document(s) SARS coronavirus 2 RNA [Presence] in Res piratory specimen by ANTONIO with probe detection NEGATIVE [facility] This lab was ordered by [facility] a nd reported by [facility]. ID Date Data Source [id number] 06/13/2020 12:00:00 AM EST [facility] Name Value Range Interpretation Code Description Data Luzmaria rce(s) Supporting Document(s) SARS-CoV2 Rapid Antigen [facility] This lab was ordered by [facility] and reported by [facility]. ID Date Data Source [id number] 06/09/2020 12:49:00 PM [facility] [address] [facility] Emergency Department [address] [place] [address] Phone #: [phone] gbl- [phone] 06/09/2020 12:39 Patient: IRENE OCHOA Sex: F [...] NV, elevated T bili,MEDICATION/IV/DRIP/FLUID ORDERS [address] [facility] Emergency Department [address] [place] [address] Phone #: ext- [phone] 06/09/2020 12:39 Patient: [...] rce(s) Supporting Document(s) ID Date Data Source [id number] 06/09/2020 12:49:[address] [facility] [address] [facility] Emergency Department [address] [place] [address] Phone #: ext- [phone] 06/09/2020 12:39 Patient: [...] rce(s) Supporting Document(s) ID Date Data Source [id number] 06/09/2020 12:49:[address] [facility] [address] [facility] Emergency Department [address] [place] [address] Phone #: ext- [phone] 06/09/2020 12:39 Patient: IRENE OCHOA Sex: F : 1980 Age: 39yWeight: 82.5 kgHeight/Length: 68 inBMI: 27.7ALLERGIES: Latex Date/Time Medication Administered Medication OrderedStart NS [IV] NS IV : Bolus 1000 mL, then 97342:27 06/09/2020 Dose: IV Fluids mL/hr (NOW x1)Santiago [...] rce(s) Supporting Document(s) ID Date Data Source [id number] 06/11/2020 12:21:00 PM [facility] [address] [place] [address] PHONE: [phone] FAX: [phone] Name .................. : DON BONILLA Acct Number.................. : [id number] ROOM. ................. : TR-08 Number ................... : [id number] Stay type ............. : E/R Discharge Date......... ... : 06/09/20 Admit Date ......... : 06/09/20 Admit Phys .................... : DIANDRA FELDMAN Date of ....... : 1980 Family Phys ................... : SERVAGE PATRICE Phone .................. : [phone] Age ................................ : 39 Film# .................. .:[id number] Sex ................................. : F Unsigned transcriptions are preliminary reports and do not represent a medical or legal document CT ABD & PELVIS W/ IV ONLY [id number] COMPLETE:06/09/20 19:28 SERA [id number] Reason(s): lower/upper abd pain with NV, elevated [...] of administration: Intravenous Page 1 of 2 [facility] [address] [place] [address] [place] [address] PHONE: [phone] FAX: [phone] Name .................. : DON IRENE Acct Number.................. : [id number] ROOM. ................. : TR-08 MR Number ................... : [id number] Stay type ............. : E/R Discharge Date......... ... : 06/09/20 Admit Date ......... : 06/09/20 Admit Phys .................... : DIANDRA FELDMAN Date of ....... : 1980 Family Phys ................... : SERVAGE PATRICE Phone .................. : [phone] Age ................................ : 39 Film# .................. .:[id number] Sex ................................. : F Unsigned transcriptions are preliminary reports and do not represent a medical or legal document CT ABD & PELVIS W/ IV ONLY [id number] COMPLETE:06/09/20 19:28 SERA [id number] Reason(s): lower/upper abd pain with NV, elevated T bili, Electronically Reviewed and Signed By Alissa Montoya MD , 06/11/20 12:21, KGG Transcribe Initials: LUISANA , Transcribe Date: 06/10/20 01:20, Dictation Date: Copy for: DARRON Bullard via fax Copy for: EMERGENCY DEPT via [facility] Copy for: 710 MED REC DISCHARGED Page 2 of 2 Name Value Range Interpretation Code Description Data Luzmaria rce(s) Supporting Document(s) ID Date Data Source [id number] 06/09/2020 07:38:00 PM EST [facility] [address] [place] [address] RESPIRATORY CARE REPORT ==== ---------NAME------- NUMBER SEX AGE ADMIT DISC. XRAY# F/C TYPEPOUND IRENE [id number] F 39 06/09/20 06/09/20 [id number] KBO E/R DATE OF : 1980 M/R# [id number] #: [id number] TR-08 LOCATION: EMERGENCY DEPT EKG 57930 COMP LETE:06/09/20 15:52 [place] [id number] PHYSICIAN: DIANDRA SY DECLAN Name Value Range Interpretation Code Description Data Luzmarai rce(s) Supporting Document(s) ID Date Data Source [id number] 06/09/2020 12:49:[address] [facility] [address] [facility] Emergency Department [address] [place] [address] Phone #: ext- [phone] 06/09/2020 12:39 Patient: [...] ADDITIONAL INFORMATIONViral Gastroenteritis (Adult) [address] [facility] Emergency Department [address] [place] [address] Phone #: ext- [phone] 06/09/2020 12:39 - [...] of bowel control Headache [address] [facility] Emergency Department [address] [place] [address] Phone #: ext- [phone] 06/09/2020 12:39 Patient: [...] with soap and water or use alcohol-based procurement officer to prevent the spread of infection. Wash your hands after touching anyone who is sick. Wash your hands or use alcohol-based procurement officer after using the toilet and before meals. [...] Keep uncooked meats away from cooked and xrbjw-xx-xxc foods.MedicineYou may use acetaminophen or NSAID medicines [...] spicy, or fried foods. [address] [facility] Emergency Department [address] [place] [address] Phone #: ext- [phone] 06/09/2020 12:39 Patient: [...] your provider if you don't get better hours or if diarrhea lasts more than a week. Also follow up if you are unable to keep down liquidsand get dehydrated. If a stool (diarrhea) sample was taken, call as directed for the results.Call [address] [facility] Emergency Department [address] [place] [address] Phone #: ext- [phone] 06/09/2020 12:39 Patient: [...] directed by your healthcare provider Bob kerns [phone] [employer]. [address] [place] [address]. All rights reserved. This information is not intended as asubstitute for professional medical care. Always follow your healthcare professional's instructions.Bladder Infection, Female (Adult) [address] [facility] Emergency Department [address] [place] [address] Phone #: ext- [phone] 06/09/2020 12:39 Patient: [...] above the pubic bone. [address] [facility] Emergency Department [address] [place] [address] Phone #: ext- [phone] 06/09/2020 12:39 Patient: [...] more serious kidney infection.Medicines [address] [facility] Emergency Department [address] [place] [address] Phone #: ext- [phone] 06/09/2020 12:39 Patient: [...] will affect your treatment. [address] [facility] Emergency Department [address] [place] [address] Phone #: ext- [phone] 06/09/2020 12:39 Patient: [...] swelling in the outer vaginal area (labia) [id number] [employer] [address] [facility], [place] [address]. All rights reserved. This information is not [...] like cocaine and amphetamine. [address] [facility] Emergency Department [address] [place] [address] Phone #: ext- [phone] 06/09/2020 12:39 Patient: [...] of salt when cooking. [address] [facility] Emergency Department [address] [place] [address] Phone #: ext- [phone] 06/09/2020 12:39 Patient: IRENE OCHOA Sex: F : 1980 Age: 39y Start an exercise program. Talk with your healthcare provider about what exercise program is best for you. It doesn't have to be difficult. Even brisk walking for 20 minutes 3 times a week is a good form of exercise. Avoid medicines that stimulates the heart. This includes many xemp-suw-vpsoczn cold and sinus decongestant pills and sprays, as well as diet pills. Check the warnings about high blood pressure on the label. Before purchasing any hexv-hwc-bwyysen medicines or supplements, always ask the pharmacist [...] on home blood pressure monitoring from the [employer]. Don't smoke or drink coffee for [...] manual for an illustration. [address] [facility] Emergency Department [address] [place] [address] Phone #: ext- [phone] 06/09/2020 12:39 [id number] Sex: F : 1980 Age: 39y Take [...] Trouble speaking or seeing [address] [facility] Emergency Department [address] [place] [address] Phone #: ext- [phone] 06/09/2020 12:39 Patient: IRENE OCHOA Sex: F : 1980 Age: 39y [id number] [employer]. [address] [place] [address], [place] 1964567. All rights reserved. This information is not intended as asubstitute for professional medical care. Always follow your healthcare professional's instructions.[place] DietYour healthcare provider may recommend a bland [...] or rye bread, alcon or soda crackers, Sullivan toast, plain rolls, bagelsAvoid: Whole-grain breadCerealOK: Refined cereals: cooked or ready to eatAvoid: Whole-grain cereals and granola, or those containing bran, seeds or nutsDesserts [address] [facility] Emergency Department [address] [place] [address] Phone #: ext- [phone] 06/09/2020 12:39 Patient: [...] extracts, umer, cinnamon, thyme, mace, allspice, paprikaAvoid: Foristell powder, cloves, pepper, seed spices, garlic, gravy pickles, highly seasoned saladdressings [address] [facility] Emergency Department [address] [place] [address] Phone #: ext- [phone] 06/09/2020 12:39 Patient: IRENE OCHOA Sex: F : 1980 Age: 39y 9028-[address] [employer] [place] [address]. All rights reserved. This information is not [...] most grocery stores. You don't need aprescription. 3667-7630 [employer]. [address] [place] [address], [place] [address]. All rights reserved. This information is not intended as asubstitute for professional medical care. Always follow your healthcare professional's instructions. [address] [facility] Emergency Department [address] [place] [address] Phone #: ext- [phone] 06/09/2020 12:39 Patient: IRENE OCHOA Sex: F : 1980 Age: 39yYou have been given the following additional information:Gastroenteritis, Viral (Adult)Bladder Infection, Female (Adult)High Blood Pressure, Established, Out of ControlDiet, [place] (Adult)Clear Liquid DietNo strenuous activity until better. Rest at home for two days.(Electronically signed by LUIS Knox 06/09/2020 18:38) Name Value Range Interpretation Code Description Data Luzmaria rce(s) Supporting Document(s) ID Date Data Source [id number] 06/09/2020 12:49:00 PM [facility] 1 Clinical Report - Nurses [facility] Emergency Department [address] [place] [address] Phone #: ext- [phone] 06/09/2020 12:39 Patient: IRENE OCHOA Sex: F : 1980 Age: 39yTRIAGEArrived by private vehicle. Historian: patient. Accompanied by family. ( infection in left foot has beenbeing treated, started treatment and then tuesday started vomitting).Acuity: LEVEL 3.Chief Complaint: ABDOMINAL PAIN, NAUSEA and VOMITING.Alert.Onset. (tuesday). She has had abdominal pain. The pain is described as generalized.Treatment DRYWALL SANDER:None.SEPSIS SCREEN: SIRS Screen negative. Sepsis Screen negative. [...] Browne R.N. 2 Clinical Report - Nurses [facility] Emergency Department [address] [place] [address] Phone #: ext- [phone] 06/09/2020 12:39 Patient: [...] treatment room. --12:48 06/09/20 Cee Browne R.N.PHYSICAL GFPSVKLPOU77:09 06/09/20. Ambulatory to room.GENERAL / NEURO / [...] Browne R.N. 3 Clinical Report - Nurses [facility] Emergency Department [address] [place] [address] Phone #: ext- [phone] 06/09/2020 12:39 Patient: IRENE OCHOA Sex: F : 1980 Age: 39y13:30 06/09/20. BP: 171/114. MAP: 133. HR: 98. RR: 18. O2 saturation: 99%. --13:30 06/09/20 Jen Landrum ER Bvmo621:27 06/09/2020 Site #1 started via IV in [...] Santiago Franklin RNCardiac rhythm: normal sinus rhythm; (9222). EKG time: (13:25 06/09/2020). EKG was performed [...] protocol ;labeled in presence of the patient. (2921). --13:58 06/09/20 Santiago Franklin RN14:04 06/09/20. BP: 178/105. MAP: 129. HR: 88. RR: 16. O2 saturation: 98%. --14:04 06/09/20 Jen Landrum ER Vwgq129:00 06/09/2020 PROTONIX (Pantoprazole Sodium) IVP 40 mg [...] precautions initiated. Gowns and gloves in use. (2874). --14:10 06/09/20 Santiago Franklin RN14:27 06/09/20. BP: 173/107. MAP: 129. HR: 88. RR: 16. O2 saturation: 100%. --14:28 06/09/20 Jen Landrum ER Tech1 4 Clinical Report - Nurses [facility] Emergency Department [address] [place] [address] Phone #: ext- [phone] 06/09/2020 12:39 Patient: [...] saturation: 100%. --14:56 06/09/20 Jen Landrum ER Woqv685:05 06/09/2020 Clonidine PO Tablets 0.1 mg given. Allergies verified and confirmed 5 rights. Informationreviewed with patient. --15:05 06/09/20 Santiago Franklin RN( Zane Sy notified B/P still elevated V/O clonidine received and given). --15:06 06/09/20 SAIDA Fuller15:28 06/09/20. BP: 169/106. MAP: 127. HR: 91. RR: 16. O2 saturation: 98%. --15:29 06/09/20 Jen Landrum ER Nkxr2Tiqyogm transported to CT by wheelchair with mask and plant health care technician. (1540). --15:41 06/09/20 SAURABH Fulleratient returned from CT by wheelchair with mask and plant health care technician. (1550). --15:53 06/09/20 Mo mcdowell RN( 1555 pt stating feeling better after I V fluids). --15:54 06/09/20 Santiago Franklin RN15:59 06/09/20. BP: 169/107. MAP: 127. HR: 88. RR: 16. O2 saturation: 98%. --15:59 06/09/20 Rory EDPancho, MERY Li Snlt7Hzqubhv patient name and birthdate: patient confirmed. Clean catch urine collected with return ofamber-colored urine; sample sent to lab for urinalysis. Specimen labeled in the presence of the patient(2354). --16:54 06/09/20 Santiago Franklin RN( 6775 P A notified of B/P with new [...] rights. Information 5 Clinical Report - Nurses [facility] Emergency Department [address] [place] [address], [place] [address] Phone #: ext- [phone] 06/09/2020 12:39 Patient: IRENE OCHOA Sex: F [...] same. The patient feels the same. Physician producer assistant notified. --17:29 06/09/20 Santiago Franklin RN [...] have improved the patient feels better. Physician producer assistant notified. --17:45 06/09/20 Santiago Franklin RN.DISPOSITION [...] Patient verbalized understanding. Written instructions provided in Tajik. The patient was discharged by the physician producer assistant. She was discharged home and accompanied by spouse. She left ambulatory and via private vehicle. Spouse driving. --18:16 06/09/20 Santiago Franklin RN. 6 Clinical Report - Nurses [facility] Emergency Department [address] [place] [address] Phone #: sew- [phone] 06/09/2020 12:39 Patient: IRENE OCHOA Sex: F : 1980 Age: 39yLocked/Released at 06/09/2020 18:36 by Santiago Franklin RN Name Value Range Interpretation Code Description Data Luzmaria rce(s) Supporting Document(s) ID Date Data Source [id number] 06/09/2020 12:49:[address] [facility] 1 Clinical Report - Physicians/Mid Levels [facility] Emergency Department [address] [place] [address] Phone #: ext- [phone] 06/09/2020 12:39 Patient: [...] 2 C linical Report - Physicians/Mid Levels [facility] Emergency Department [address] [place] [address] Phone #: ext- [phone] 06/09/2020 12:39 Patient: IRENE OCHOA [facility]#: [id number] Sex: F : 1980 Age: 39y ITP. [...] No 3 Clinical Report - Physicians/Mid Levels [facility] Emergency Department [address] [place] [address] Phone #: ext- [phone] 06/09/2020 12:39 Patient: [...] making process. Troponin-T: (LAYNE: 06/09/2020 13:50) ( [facility] 06/09/2020 14:15) Final results Test Result Flag Units (Reference) TROPONIN T <0.01 NG/ML (0.00 - 0.10) TROPONIN T0.1 ng/ml Recommended as the clinical threshold value forTroponin T. Beta-HCG, Qual Serum: (LAYNE: 06/09/2020 13:50) ( [facility] 06/09/2020 14:08) Final results Test Result Flag Units (Reference) HCG SERUM QUAL NEGATIVE (NORMAL: NEGAT HCG SERUM QL REENTER NEGATIVE (NORMAL: NEGAT { KIT LOT # [id number] ){ KIT EXP DATE 04.08.21 ){ PROCEDURAL CONTROL VALID ) CBC w Diff: (LAYNE: 06/09/2020 13:50) ( [facility] 06/09/2020 14:03) Final results Test Result Flag [...] 80.0) 4 Clinical Report - Physicians/Mid Levels [facility] Emergency Department [address] [place] [address] Phone #: ext- [phone] 1 08/10/2019 12:39 [...] Male GFR Interprentation 20-49 yrs >60 mL/min Dhwyry07-57 yrs >56 mL/min Normal 60-69 yrs >49 mL/min Normal 70-79yrs>42 mL/min Normal 80 and above >35 mL/min Normal Female GFRInterpretation 20-39 yrs >60 mL/min Normal 40-49 yrs >58 mL/minNormal 50-59 yrs >51 mL/min Normal 60-69 yrs >45 mL/min Lyzfet66-54 yrs >39 mL/min Normal 80 and above >32 mL/min NormalLactic Acid: (LAYNE: 06/09/2020 13:50) ( WvgRcvd 06/09/2020 14:07) Final results Test Result Flag Units (Reference) LACTIC ACID 3.2 H MMOL/L (0.2 - 2.2)Magnesium: (LAYNE: 06/09/2020 13:50) ( MsgRcvd 06/09/2020 14:17) Final results Test Result Flag Units (Reference) MAGNESIUM 2.0 MG/DL (1.7 - 2.2)Lipase: (LAYNE: 06/09/2020 13:50) ( WvgRcvd 06/09/2020 14:18) Final results 5 Clinical Report - Physicians/Mid Levels [facility] Emergency Department [address] [place] [address] Phone #: ext- [phone] 06/09/2020 12:39 Patient: [...] treatment. 6 Clinical Report - Physicians/Mid Levels [facility] Emergency Department [address] [place] [address] Phone #: ext- [phone] 06/09/2020 12:39 Patient: [...] 06/09/2020 18:38) 7Clinical Report - Physicians/Mid Levels [facility] Emergency Department [address] [place] [address] Phone #: ext- [phone] 06/09/2020 12:39 Patient: IRENE OCHOA Sex: F : 1980 Age: 39y Name Value Range Interpretation Code Description Data Luzmaria rce(s) Supporting Document(s) ID Date Data Source [id number] 06/13/2020 03:09:[address] [facility] Name Value Range Interpretation Code Description Data Luzmaria rce(s) Supporting Document(s) CULTURE URINE [facility] _CULTURE URINE_$$[id number]$$[id number]$$320267$$064697$$571569$$532449$$321053$$428485$$804601$$ 937956$$440639$$893628$$924167$$982734$$255148$$150912$$269989$$109370$$092537$$ 141228$$988398$$583059$$944690$$788191$$542796$$103996$$096979 -- Continued on next page --Patient: DON BONILLA Order: [id number] Page 2Culture: CULTURE URINE Status: Final ==== -- Continued on next page --Patient: DON BONILLA Order: [id number] Page 2Culture: CULTURE URINE Status: Prelim =====$$[id number]$$[id number] DATE/TIME: 06/13/2020 11:06Culture: CULTURE URINE Status: FinalIsolate 1 Klebsiella pneumoniae Flag: A . . . . . . .5Greater than 100,000 colony forming units per mLCefazolin with an ANSUH <=16 predicts susceptibility to the oral agentscefaclor, cefdinir, cefpodoxime, cefprozil, cefuroxime, cephalexin,and loracarbef when used for therapy of uncomplicated urinary tractinfections due to E. coli, Klebsiella pneumoniae, and Proteusmirabilis. Previous result entered on 06/12/2020 01:49 ET Gram negative rodsUrine Culture,Comprehensive: H9Znyhmoxvov pneumoniae Flag: APatient: DON BONILLA Order: [id number] Page 3Culture: CULTURE URINE Status: Final ISOLATE [...] S S . . . . . .97838-2Vvnxnkdhhc S S . . . . . .267-5Imipenem S S . . . . . .279-0Levofloxacin S S . . . . . .01913-3Cyurnkkhv S S . . . . . .6652- 2Nitrofurantoin R R . . . . . .363-2Piperacillin/Tazobactam I I . . . . . .412-7Tetracycline R R . . . . . .496-0Tobramycin S S . . . . . .508-2Trimethoprim/Sulfa R R . . . . . .516-5P1 Test perfo rmed by: Claudine Gonzales [facility] #: [id number] [address] [place] [address] [id number] [facility] [address]Jlefelq Director : Sky Macedo MD NPI #:[place] Helper : 06/12/20.0646.XMT.SENT REF 06/13/20.1509.XMT.SENT REF ID Date Data Source [id number] 06/09/2020 05:07:00 PM EST [facility] Name Value Range Interpretation Code Description Data Luzmaria rce(s) Supporting Document(s) URINALYSIS [facility] URINALYSIS SOURCE R [facility] COLOR yellow NORMAL: Yellow [facility] CLARITY clear NORMAL: Clear [facility] Specific gravity of Urine by Test strip 1.010 1.001 - 1.030 [facility] pH 6.5 5 - 9 [facility] Glucose [Mass/volume] in Urine by Test strip NORM NORMAL: Negat [facility] Bilirubin.total [Presence] in Urine by Test strip NEG NORMAL: Negative [facility] Ketones [Presence] in Urine by Test strip 15 NORMAL: Negative [facility] Protein [Mass/volume] in Urine by Test strip 30 NORMAL: Negat [facility] Nitrite [Presence] in Urine by Test strip NEG NORMAL: Negative [facility] BLOOD 50 NORMAL: Negative [facility] Leukocyte esterase [Presence] in Urine by Test strip 25 GENEVIEVE L: Negative [facility] Urobilinogen [Mass/volume] in Urine by Test strip NOR less alistair n 1.0 mg/dL [facility] MICROSCOPIC See Below [facility] ital WBC 1 - 3 NORMAL: NONE SEEN [facility] Erythrocytes [#/volume] in Urine by Test strip 1 - 3 NORMAL: NON E SEEN [facility] EPITHELIAL FEW NORMAL: NONE SEEN [facility] Bacteria [Presence] in Urine sediment by Light microscopy Tr sujata NORMAL: NONE SEEN [facility] ID Date Data Source [id number] 06/11/2020 08:12:00 AM [facility] Name Value Range Interpretation Code Description Data Luzmaria rce(s) Supporting Document(s) Cortisol [Mass/volume] in Serum or Plasma 36.2 ug/dL [facility] C ortisol AM 6.2 - 19.4 Cortisol PM 2.3 - 11.9 ID Date Data Source [id number] 06/09/2020 02:17:00 PM [facility] Name Value Range Interpretation Code Description Data Luzmaria rce(s) Supporting Document(s) COMPREHENSIVE METABOLIC PANEL [facility] COMPREHENSIVE METABOLIC PANEL Sodium [Moles/volume] in Serum or Plasma 139 mEq/L 134 - 153 [facility] Potassium [Moles/volume] in Serum or Plasma 3.5 mEq/L 3.6 - 5.[address] [facility] Chloride [Moles/volume] in Serum or Plasma 103 mEq/L 98 - 107 [facility] Carbon dioxide, total [Moles/volume] in Serum or Plasma 24 MEQ/L 22 - 30 [facility] Glucose [Mass/volume] in Serum or Plasma 112 MG/DL 65 - [address] [facility] BUN 14 MG/DL 7 - 21 [facility] Creatinine [Mass/volume] in Serum or Plasma 0.6 MG/DL 0.7 - 1.[address] [facility] BUN/CREAT 23 8 - 27 [facility] al Protein [Mass/volume] in Serum or Plasma 6.9 G/DL 6.3 - 8.2 [facility] Albumin [Mass/volume] in Serum or Plasma 4.3 G/DL 3.9 - 5.0 [facility] Globulin [Mass/volume] in Serum by calculation 2.6 GM/DL 2.4 - 3.2 [facility] A/G RATIO 1.7 0.8 - 2.0 [facility] Calcium [Mass/volume] in Serum or Plasma 8.5 MG/DL 8.4 - 10.2 [facility] Bilirubin.total [Mass/volume] in Serum or Plasma 1.7 MG/DL 0.2 - 1.[address] [facility] Alkaline phosphatase [Enzymatic activity/volume] in Serum or Plasma 75 U/L 38 - 126 [facility] Aspartate aminotransferase [Enzymatic activity/volume] in Serum or Plasma 45 U/L 5 - [address] [facility] Alanine aminotransferase [Enzymatic activity/volume] in Seru m or Plasma 23 U/L 7 - 56 [facility] Anion gap 3 in Serum or Plasma 12.0 mmol/L 8.0 - 16.0 [facility] AGE 39 yrs [facility] al NON-AA GFR >60 mL/min [facility] ital AFR AMER GFR >60 mL/min [facility] spital Male GFR In terprentation [...] >32 mL/min Normal ID Date Data Source [id number] 06/09/2020 02:17:00 PM [facility] Name Value Range Interpretation Code Description Data Luzmaria rce(s) Supporting Document(s) Lipase [Enzymatic activity/volume] in Serum or Plasma 15 U/L 13 - 60 [facility] ID Date Data Source [id number] 06/09/2020 02:17:00 PM [facility] Value Range Interpretation Code Description Data Luzmaria rce(s) Supporting Document(s) Magnesium [Mass/volume] in Serum or Plasma 2.0 MG/DL 1.7 - 2.2 [facility] ID Date Data Source [id number] 06/09/2020 02:15:00 PM [facility] Value Range Interpretation Code Description Data Luzmaria rce(s) Supporting Document(s) TROPONIN T <0.01 NG/ML 0.00 - 0.10 [facility] ospital TROPONIN T0.1 ng/ml Recommended as the c linical threshold value forTroponin T. ID Date Data Source [id number] 06/09/2020 02:08:00 PM [facility] Value Range Interpretation Code Description Data Luzmaria rce(s) Supporting Document(s) HCG SERUM QUAL NEGATIVE NORMAL: NEGATIVE [facility] HCG SERUM QL REENTER NEGATIVE NORMAL: NEGATIVE [facility] { KIT LOT # [id number] ){ KIT EXP DATE 04.08.21 ){ PROCEDURAL CONTROL VALID ) ID Date Data Source [id number] 06/09/2020 02:07:00 PM [facility] Name Value Range Interpretation Code Description Data Luzmaria rce(s) Supporting Document(s) Lactate [Moles/volume] in Serum or Plasma 3.2 MMOL/L 0.2 - 2.[address] [facility] ID Date Data Source [id number] 06/09/2020 02:02:00 PM [facility] Value Range Interpretation Code Description Data Luzmaria rce(s) Supporting Document(s) CBC W/AUTOMATED DIFF [facility] COMPLETE BLOOD COUNT Leukocytes [#/volume] in Blood by Automated count 4.3 10^3/uL 4.2 - [address] [facility] Erythrocytes [#/volume] in Blood by Automated count 4.80 10^6/uL 4. 20 - 5.40 [facility] Hemoglobin [Mass/volume] in Blood 16.2 g/dL 12.0 - 16.[address] [facility] Hematocrit [Volume Fraction] of Blood by Automated count 45.9 % 3 7.0 - 47.0 [facility] Erythrocyte mean corpuscular volume [Entitic volume] by Auto mated count 95.6 fL 81.0 - 101 [facility] Erythrocyte mean corpuscular hemoglobin [Entitic mass] by Automated count 33.8 pg 27.0 - 34.0 [facility] Erythrocyte mean corpuscular hemoglobin concentration [Mass/volume] by Automated count 35.3 g/dL 31.0 - 36.0 [facility] Erythrocyte distribution width [Ratio] by Automated count 12.7 % 11.5 - 14.5 [facility] Platelets [#/volume] in Blood by Automated count 96 10^3/uL 150 - [address] [facility] Platelet mean volume [Entitic volume] in Blood by Automated count 10.5 fL 7.4 - 10.[address] [facility] Neutrophils/100 leukocytes in Blood by Automated count 64.3 % 37. 0 - 80.0 [facility] Lymphocytes/100 leukocytes in Blood by Manual count 25.6 % 25.0 - 40.0 [facility] Monocytes/100 leukocytes in Blood by Automated count 8.7 % 3.0 - 8.[address] [facility] Eosinophils/100 leukocytes in Blood by Automated count 0.2 % 0.0 - 7.0 [facility] Basophils/100 leukocytes in Blood by Automated count 0.5 % 0.0 - 2.5 [facility] %IG 0.7 % 0.0 - [facility] %[facility] 0.0 % 0.0 - 0.0 [facility] al Neutrophils [#/volume] in Blood by Automated count 2.73 10^3/uL 2.00 - 6.90 [facility] Lymphocytes [#/volume] in Blood by Automated count 1.09 10^3/uL 0.60 - 3.40 [facility] Monocytes [#/volume] in Blood by Automated count 0.37 10^3/uL 0.00 - 0.90 [facility] Eosinophils [#/volume] in Blood by Automated count 0.01 10^3/uL 0.00 - 0.70 [facility] Basophils [#/volume] in Blood by Automated count 0.02 10^3/uL 0.00 - 0.20 [facility] #IG 0.03 10^3/uL 0.00 - 0.10 [facility] ospital #NRBC 0.00 10^3/uL 0.00 - 0.00 [facility] ospital MANUAL DIFF NOT INDICATED [facility] RBC MORPH NOT INDICATED [facility] spital ID Date Data Source [id number] 06/16/2020 02:12:00 PM EST [facility] Name Value Range Interpretation Code Description Data Luzmaria rce(s) Supporting Document(s) Urine Culture [facility] ospital ID Date Data Source [id number] 06/16/2020 02:12:00 PM EST [facility] Name Value Range Interpretation Code Description Data Luzmaria rce(s) Supporting Document(s) Amoxicillin/Clavulanic Acid Susc eptible. Indicates for microbiology susceptibilities only. [facility] Cefazolin Susceptible. Indicates for microbiol ogy susceptibilities only. [facility] Cefepime Susceptible. Indicates for microbiol ogy susceptibilities only. [facility] Ceftriaxone Susceptible. Indicates for m icrobiology susceptibilities only. [facility] Ciprofloxacin Susceptible. Ind icates for microbiology susceptibilities only. [facility] Ertapenem Susceptible. Indicates for microbiol ogy susceptibilities only. [facility] Gentamicin Susceptible. Indicates for microbiol ogy susceptibilities only. [facility] Imipenem Susceptible. Indicates for microbiol ogy susceptibilities only. [facility] Meropenem Susceptible. Indicates for microbiol ogy susceptibilities only. [facility] Levofloxacin Susceptible. Indicates for m icrobiology susceptibilities only. [facility] Nitrofurantoin 128 Results entered -- not verified [facility] Pipercillin/Tazobactam 8 Susceptib le. Indicates for microbiology susceptibilities only. [facility] Trimeth/Sulfamethoxazole Suscept ible. Indicates for microbiology susceptibilities only. [facility] ID Date Data Source [id number] 05/16/2020 08:39:00 AM EST [facility] spital QUANTITY: >100,000/mL {KLEBSIELLA P NEUMONIAE} KLEBSIELL[facility] PNEUMONIAESCT Name Value Range Interpretation Code Description Data [facility] rce(s) Supporting Document(s) ID Date Data Source [id number] 05/16/2020 08:39:00 AM EST [facility] spital QUANTITY: >100,000/mL {KLEBSIELLA P NEUMONIAE} [facility]NEUM[facility] Name Value Range Interpretation Code Description Data [facility] rce(s) Supporting Document(s) Amoxicillin/Clavulanic Acid Susc eptible. Indicates for microbiology susceptibilities only. [facility] Cefazolin Susceptible. Indicates for microbiol ogy susceptibilities only. [facility] Cefepime Susceptible. Indicates for microbiol ogy susceptibilities only. [facility] ESBL - [facility] Ceftriaxone Susceptible. Indicates for m icrobiology susceptibilities only. [facility] Ciprofloxacin Susceptible. Ind icates for microbiology susceptibilities only. [facility] Ertapenem Susceptible. Indicates for microbiol ogy susceptibilities only. [facility] Gentamicin Susceptible. Indicates for microbiol ogy susceptibilities only. [facility] Imipenem Susceptible. Indicates for microbiol ogy susceptibilities only. [facility] Meropenem Susceptible. Indicates for microbiol ogy susceptibilities only. [facility] Levofloxacin Susceptible. Indicates for m icrobiology susceptibilities only. [facility] Nitrofurantoin 128 Results entered -- not verified [facility] Pipercillin/Tazobactam 8 Susceptib le. Indicates for microbiology susceptibilities only. [facility] Trimeth/Sulfamethoxazole Suscept ible. Indicates for microbiology susceptibilities only. [facility] ID Date Data Source [id number] 08/19/2020 03:10:00 PM EST [facility] Name Value Range Interpretation Code Description Data Luzmaria rce(s) Supporting Document(s) Thyroglobulin Antibody result <4.0 Normal (applies t o non-numeric results) [facility] ADDITIONAL INFORMATIO N The thyroglobulin antibody testing method is an immunoenzymatic assay manufactured by [employer]. and performed on the [employer] DXI 800. Values obtained from different assay methods or kits may be different and cannot be used interchangeably. The results cannot be interpreted as absolute evidence for the presence or absence of malignant disease. Test Performed by: [place] [address] Wet End Helper: Vicente Suárez M.D. Ph.D.; CLIA# [id number] ID Date Data Source [id number] 08/19/2020 03:09:00 PM [facility] Value Range Interpretation Code Description Data Luzmaria rce(s) Supporting Document(s) Thyroperoxidase Ab Normal (applies to non-numer ic results) [facility] Test performed [place] [address] ID Date Data Source [id number] 08/19/2020 02:52:00 PM [facility] Value Range Interpretation Code Description Data Luzmaria rce(s) Supporting Document(s) Thyroperoxidase Ab Normal (applies to non-numer ic results) [facility] Test performed or referred by The [address] [address] ID Date Data Source [id number] 08/19/2020 02:52:00 PM [facility] Value Range Interpretation Code Description Data Luzmaria rce(s) Supporting Document(s) Thyroglobulin Antibody result <4.0 Normal (applies t o non-numeric results) [facility] ADDITIONAL INFORMATIO N The thyroglobulin antibody testing method is an immunoenzymatic assay manufactured by [employer] and performed on the [employer] DXI 800. Values obtained from different assay methods or kits may be different and cannot be used interchangeably. The results cannot be interpreted as absolute evidence for the presence or absence of malignant disease. Test Performed by: [facility] [address] [place] [address] Wet End Helper: Vicente Suárez M.D. Ph.D.; CLIA# [id number] ID Date Data Source [id number] 06/16/2020 02:12:00 PM EST [facility] Name Value Range Interpretation Code Description Data Luzmaria rce(s) Supporting Document(s) Creatinine,Urine Normal (applies to non-numeric results) [facility] Interpret with care as there is no estab lished reference range associated with this assay's methodology that pertains to this particular sex and/or age. Microalbumin,Urine <1.7 Normal (applies to non-numer ic results) [facility] Albumin/Creatinine Ratio,Urine Normal (applies to non-numeric results) [facility] Test Performed By: [facility] [address] [place] [address] Director: Modesto Joshi MD Reference Ranges for Microalbumin,spot: Normal <30 ug/mg creatinine Microalbuminuria 30-300 ug/mg creatinine Clinical Albuminuria >300 ug/mg creatinine ID Date Data Source [id number] 06/16/2020 02:12:00 PM EST [facility] Name Value Range Interpretation Code Description Data Luzmaria rce(s) Supporting Document(s) T3 (Tri-Iodothyronine) 60.0-181.0 Normal (applies to non-n umeric results) [facility] Test Performed By: [facility] [address] [place] [address] Director: Modesto Joshi MD ID Date Data Source [id number] 06/16/2020 02:12:00 PM EST [facility] Name Value Range Interpretation Code Description Data Luzmaria rce(s) Supporting Document(s) CPK 59 U/L 26-192 Normal (applies to non-numeric resul ts) [facility] Test Performed By: [facility] [address] [place] [address] Director: Modesto Joshi MD ID Date Data Source [id number] 06/16/2020 02:12:00 PM EST [facility] Name Value Range Interpretation Code Description Data Luzmaria rce(s) Supporting Document(s) T4 (Thyroxine) 4.8-13.9 Normal (applies to non-numeric r esults) [facility] Test Performed By: [facility] [address] [place] [address] Director: Modesto Joshi MD ID Date Data Source [id number] 06/16/2020 02:12:00 PM EST [facility] Name Value Range Interpretation Code Description Data Luzmaria rce(s) Supporting Document(s) Free T3 2.18-3.98 Normal (applies to non-numeric resul ts) [facility] Test Performed By: [facility] [address] [place] [address] Director: Modesto Joshi MD ID Date Data Source [id number] 05/15/2020 04:42:00 PM [facility] MB if CPK is elevated? Y MB if CPK is elevated? Y MB if CPK is elevated? Y Name Value Range Interpretation Code Description Data Luzmaria rce(s) Supporting Document(s) CPK result 59 U/L 26-192 Normal (applies to non-numeric resul ts) [facility] Test Performed By: [facility] [address] [place] [address] Director: Modesto Joshi MD ID Date Data Source [id number] 05/15/2020 04:42:00 PM [facility] MB if CPK is elevated? Y MB if CPK is elevated? Y MB if CPK is elevated? Y Name Value Range Interpretation Code Description Data Luzmaria rce(s) Supporting Document(s) Free T3 result 2.18-3.98 Normal (applies to non-numeric r esults) [facility] Test Performed By: [facility] [address] [place] [address] Director: Modesto Joshi MD T3 result 60.0-181.0 Normal (applies to non-numeric resul ts) [facility] Test Performed By: [facility] [address] [place] [address] Director: Modesto Joshi MD ID Date Data Source [id number] 05/15/2020 04:42:00 PM EST [facility] MB if CPK is elevated? Y MB if CPK is elevated? Y MB if CPK is elevated? Y Name Value Range Interpretation Code Description Data Luzmaria rce(s) Supporting Document(s) T4 result 4.8-13.9 Normal (applies to non-numeric resul ts) [facility] Test Performed By: [facility] [address] [place] [address] Director: Modesto Joshi MD ID Date Data Source [id number] 05/15/2020 07:09:00 AM [facility] Name Value Range Interpretation Code Description Data Luzmaria rce(s) Supporting Document(s) UMALB Urine Creatinine result Normal (applies t o non-numeric results) [facility] Interpret with care as there is no estab lished reference range associated with this assay's methodology that pertains to this particular sex and/or age. [facility]AL[facility] Microalbumin,Ur result <1.7 Normal (applies to non-numeric results) [facility] UMALB Alb/Cre Ratio,Ur result Normal (applies t o non-numeric results) [facility] Test Performed By: [facility] [employer] [facility] [address] [place] [address] Director: Modesto Joshi MD Reference Ranges for Microalbumin,spot: Normal <30 ug/mg creatinine Microalbuminuria 30-300 ug/mg creatinine Clinical Albuminuria >300 ug/mg creatinine ID Date Data Source [id number] 05/14/2020 04:11:00 PM [facility] Name Value Range Interpretation Code Description Data Luzmaria rce(s) Supporting Document(s) White Blood Count 3.5-10.5 Normal (applies to non-numeri c results) [facility] Red Blood Count 3.90-5.00 Normal (applies to non-numeric results) [facility] Hemoglobin 12.0-15.5 Normal (applies to non-numeric resul ts) [facility] Hematocrit 34.9-44.5 Normal (applies to non-numeric resul ts) [facility] Mean Corpuscular Volume 81.2-95.1 Above high normal [facility] Mean Corpuscular Hgb 25.6-32.2 Above high normal [facility] Mean Corpuscular Hgb Conc 32.0-36.0 Normal (applies to no n-numeric results) [facility] Red Cell Distribution Width 11.9-15.5 Normal (appli es to non-numeric results) [facility] Platelet Count 71 x10 3/uL 150-450 Below low normal [facility] Mean Platelet Volume 9.4-12.4 Normal (applies to non-num dc results) [facility] Neutrophils% (Auto) 31.0-71.0 Normal (applies to non-nume juliette results) [facility] Lymphocytes% (Auto) 20.0-55.0 Normal (applies to non-nume juliette results) [facility] Monocytes% (Auto) 4.0-12.0 Normal (applies to non-numeri c results) [facility] Eosinophils% (Auto) 1.0-8.0 Below low normal [facility] Basophils% (Auto) 0.0-2.0 Normal (applies to non-numeri c results) [facility] Immature Granulocytes% (Auto) 0.0-2.0 Normal (ced lies to non-numeric results) [facility] Neutrophils# (Auto) 1.50-6.20 Normal (applies to non-nume juliette results) [facility] Lymphocytes# (Auto) 1.20-4.00 Normal (applies to non-nume juliette results) [facility] Monocytes# (Auto) 0.00-0.90 Normal (applies to non-numeri c results) [facility] Eosinophils# (Auto) 0.00-0.50 Normal (applies to non-nume juliette results) [facility] Basophils# (Auto) 0.00-0.20 Normal (applies to non-numeri c results) [facility] Immature Granulocytes# (Auto) 0.00-7.00 No rmal (applies to non-numeric results) [facility] Slide Reviewed By Normal (applies to non-numeri c results) [facility] Slide has been reviewed and findings con firmed by a technologist/formula technician. ID Date Data Source [id number] 05/14/2020 03:34:00 PM EST [facility] C&S IF INDICATED Name Value Range Interpretation Code Description Data Luzmaria rce(s) Supporting Document(s) Color,Urine Colorl-Dk Y Normal (applies to non-numeric res ults) [facility] Clarity,Urine Clear Normal (applies to non-numeric re sults) [facility] Specific [place],Urine 1.005-1.030 Normal (applies to non- numeric results) [facility] pH,Urine 5.0-8.0 Normal (applies to non-numeric resul ts) [facility] Protein,Urine Negative Normal (applies to non-numeric re sults) [facility] Glucose,Urine Negative Normal (applies to non-numeric re sults) [facility] Ketones,Urine Negative Normal (applies to non-numeric re sults) [facility] Negative [facility] Negative Normal (applies to non-numeric results) [facility] Urobilinogen,Urine 0.2-1.0 Normal (applies to non-numer ic results) [facility] Leukocyte Esterase,Urine Negative Normal (applies to non -numeric results) [facility] Nitrite,Urine Negative Normal (applies to non-numeric re sults) [facility] RBC,Urine None Seen [facility] WBC,Urine None Seen [facility] Casts,Urine None Seen Normal (applies to non-numeric resu lts) [facility] Squamous Cells,Urine None Seen [facility] Bacteria,Urine None Seen [facility] ital ID Date Data Source [id number] 05/14/2020 02:56:00 PM EST [facility] Name Value Range Interpretation Code Description Data Luzmaria rce(s) Supporting Document(s) Sodium 139 mmol/L 136-145 Normal (applies to non-numeric resul ts) [facility] Potassium 3.5-5.1 Below low normal [facility] spital Chloride 101 mmol/L 98-107 Normal (applies to non-numeric resul ts) [facility] Carbon Dioxide CO2 21-32 Normal (applies to non-numer ic results) [facility] Anion Gap 5.0-16.0 Normal (applies to non-numeric resul ts) [facility] BUN 13 mg/dL 7-18 Normal (applies to non-numeric results) [facility] Creatinine,Serum 0.7-1.2 Normal (applies to non-numeric results) [facility] GFR >60 Normal (applies to non-numeric results) [facility] Glucose Level 82 mg/dL 60-99 Normal (applies to non-numeric re sults) [facility] Reference range is only applicable when patient is fasting Note the following drug interference: Sulfasalazine Sulfapyridine Can see falsely depressed Can see falsely elevated result with up to 17% results with up to 11% decrease in measurement increase in measurement Recommend patients be collected for this test prior to administration of either drug. Calcium 8.5-10.1 Below low normal [facility] spital Bilirubin,Total 0.1-1.9 Normal (applies to non-numeric results) [facility] SGOT(AST) 33 U/L 15-37 Normal (applies to non-numeric resul ts) [facility] Note the following drug interference: Sulfasalazine Sulfapyridine Can see falsely depressed Can see falsely elevated result with up to 10% results with up to 10% decrease in measurement increase in measurement Recommend patients be collected for this test prior to administration of either drug. SGPT(ALT) 37 U/L 12-78 Normal (applies to non-numeric resul ts) [facility] Note the following drug interference: Sulfasalazine Sulfapyridine Can see falsely depressed Can see falsely elevated result with up to 29% results with up to 10% decrease in measurement increase in measurement Recommend patients be collected for this test prior to administration of either drug. Alkaline Phosphatase 67 U/L 38-126 Normal (applies to non-num dc results) [facility] can increase Alkaline Phosp le vels up to 2 times the normal adult value. Normal values for children and adolescents are 2 to 3 times the normal adult value. Total Protein 6.0-8.2 Normal (applies to non-numeric re sults) [facility] Albumin Level 3.4-5.0 Normal (applies to non-numeric re sults) [facility] ID Date Data Source [id number] 05/14/2020 02:56:00 PM [facility] Name Value Range Interpretation Code Description Data Luzmaria rce(s) Supporting Document(s) Triglycerides 252 mg/dL <150 Above high normal [facility] Cholesterol 183 mg/dL 100-200 Normal (applies to non-numeric resu lts) [facility] LDL Cholesterol Calculated 71 0-130 Normal (applies to n on-numeric results) [facility] HDL Cholesterol 62 mg/dL 40-60 Above high normal [facility] Cholesterol/HDL Ratio 3.6-6.7 Below low normal [facility] ID Date Data Source [id number] 05/14/2020 02:56:00 PM [facility] Name Value Range Interpretation Code Description Data Luzmaria rce(s) Supporting Document(s) Free T4 (Free Thyroxine) 0.76-1.46 Normal (applies to non -numeric results) [facility] ID Date Data Source [id number] 05/14/2020 02:56:00 PM [facility] Name Value Range Interpretation Code Description Data Luzmaria rce(s) Supporting Document(s) Thyroid Stimulate Hormone TSH 0.358-3.74 No rmal (applies to non-numeric results) [facility] ID Date Data Source [id number] 05/21/2020 08:39:00 AM [facility] Services Department Imaging Report [address] [place], [place] [address] %(RAD)RES..mtdd.print.filter("line") Name: IRENE ZAVALETA : 1980 Age/Sex: 39F Ordering Provider: LUIS Duvall Med Rec #: [id number] Reg Status: DEP REF Room #: Date of Service: 05/14/20 Report Number: [id number] cc:LUIS Duvall Send Report To: [id number] XRP/XR Chest 2 View [Pa & Lat] [...] Date/Time: 05/19/20 1543 Transcribed Date/Time: 05/21/20 0839 Real Estate Acquisition Analyst: FAWAD Name Value Range Interpretation Code Description Data Luzmaria rce(s) Supporting Document(s) ID Date Data Source [id number] 05/14/2020 11:37:00 AM EST [facility]) Name Value Range Interpretation Code Description Data Luzmaria rce(s) Supporting Document(s) Thyroid Stimulating Hormone 1.494 ME [facility] ([facility]) Creatine kinase [Enzymatic activity/volume] in Serum or Plasma 59 41-270 [facility] ([facility]) ID Date Data Source [id number] 05/14/2020 11:37:00 AM EST [facility] ([facility]) Name Value Range Interpretation Code Description Data Luzmaira rce(s) Supporting Document(s) HDL 62 40-60 [facility] ([facility] Triglycerides 252 [facility] ([facility] Cholesterol 183 120-200 [facility] ([facility] Chol/HDL Ratio 3.0 [facility] ([facility] Cholesterol in LDL [Mass/volume] in Serum or Plasma by calculation 71 [facility] ([facility] ID Date Data Source [id number] 05/14/2020 11:37:00 AM EST [facility] ([facility] Name Value Range Interpretation Code Description Data Luzmaria rce(s) Supporting Document(s) Albumin [Mass/volume] in Serum or Plasma 3.9 [facility] ([facility] Alanine aminotransferase [Enzymatic activity/volume] in Serum or Pl asma 37 [facility] ([facility] Carbon dioxide, total [Moles/volume] in Serum or Plasma 26.3 [facility] ([facility] Chloride [Moles/volume] in Serum or Plasma 101 [facility] ([facility] Calcium [Mass/volume] in Serum or Plasma 8.0 [facility] ([facility] Alkaline phosphatase [Enzymatic activity/volume] in Serum or Plasma 6 7 [facility] ([facility] Protein [Mass/volume] in Serum or Plasma 7.1 [facility] ([facility] Potassium [Moles/volume] in Serum or Plasma 3.1 [facility] ([facility] Aspartate aminotransferase [Enzymatic activity/volume] in Serum or Plasma 33 [facility] ([facility] Sodium 139 [facility] ([facility] Glucose 82 70-100 [facility] ([facility] Urea nitrogen [Mass/volume] in Serum or Plasma 13 [facility] ([facility] Creatinine For GFR 0.7 [facility] ([facility] ID Date Data Source [id number] 05/14/2020 11:37:00 AM EST [facility] ([facility] Name Value Range Interpretation Code Description Data Luzmaria rce(s) Supporting Document(s) Red Blood Count 4.29 4.70-6.20 [facility] ([facility] White Blood Count 5.7 4.3-10.9 [facility] ([facility]) Platelets 71 130-400 [facility] Hemoglobin 14.6 13.0-17.0 [facility] ([facility]) Hematocrit 42.1 39.0-50.0 [facility] ([facility]) ID Date Data Source [id number] 04/30/2020 12:00:00 AM EDT [facility] Name Value Range Interpretation Code Description Data Luzmaria rce(s) Supporting Document(s) SARS coronavirus 2 RNA [facility] This lab was ordered by [facility] and rep orted by [facility]. Procedure Social History Code Duration Value Status Description Data Source(s ) Smoking 10/14/2020 12:00:00 AM EDT Patient has never smoked co mpleted Patient has never smoked [facility] ([facility]) Vital Signs ID Date Data Source UNK Name Value Range Interpretation Code Description Data Source(s) Body mass index (BMI) [Ratio] 32.69 kg/m2 32.69 kg/m2 [facility] Body height 172.7200 cm 172.7200 cm [facility] Oxygen saturation in Arterial blood by Pulse oximetry 98 % 98 % [facility] Heart rate 98.0 /min 98.0 /min [facility] ospital Systolic blood pressure 137 mm[Hg] 137 mm[Hg] [facility] Diastolic blood pressure 87 mm[Hg] 87 mm[Hg] [facility] Body surface area Derived from formula 2.16 m2 2.16 m2 [facility] Respiratory rate 18 /min 18 /min [facility] Body temperature 36.8 Madonna 36.8 Madonna [facility] Body weight 97.52 kg 97.52 kg [facility] Body weight 214.00 [lb_av] 214.00 [lb_av] [facility] T ([facility]) Body height 68 [in_i] 68 [in_i] [facility] ([facility]) 5'8" Body mass index (BMI) [Ratio] 32.5 kg/m2 32.5 k g/m2 [facility] ([facility]) Systolic blood pressure--sitting 136 mm[Hg] 136 mm[Hg] [facility] ([facility]) Ra, large cuff Diastolic blood pressure--sitting 84 mm[Hg] 84 mm[Hg] [facility] ([facility]) Ra, large cuff Body height 68 [in_i] 68 [in_i] [facility] 5'8" Body mass index (BMI) [Ratio] 30.9 kg/m2 30.9 k g/m2 [facility] ([facility]) Heart rate 89 /min 89 /min [facility] ([facility]) Systolic blood pressure--sitting 100 mm[Hg] 100 mm[Hg] [facility] ([facility]) Omron large cuff, Ra Diastolic blood pressure--sitting 74 mm[Hg] 74 mm[Hg] [facility] ([facility]) Omron large cuff, Ra Body weight 203.00 [lb_av] 203.00 [lb_av] [facility] T ([facility]) Systolic blood pressure 142 mm[Hg] 142 mm[Hg] [facility] Diastolic blood pressure 78 mm[Hg] 78 mm[Hg] [facility] ([facility]) Body height 58 [in_i] 58 [in_i] [facility] ([facility]) 4'10" Body weight 203.50 [lb_av] 203.50 [lb_av] [facility] T ([facility]) Body mass index (BMI) [Ratio] 42.5 kg/m2 42.5 k g/m2 [facility] [place] body weight 100 [lb_av] 100 [lb_av] [facility] T ([facility]) Body weight 92.308 kg 92.308 kg [facility] ([facility]) Body surface area Derived from formula 1.83 m2 1.83 m2 [facility] ([facility]) Body weight 197.00 [lb_av] 197.00 [lb_av] [facility] T ([facility]) Systolic blood pressure--sitting 128 mm[Hg] 128 mm[Hg] [facility] ([facility]) Omron, adult cuff/Ra Diastolic blood pressure--sitting 95 mm[Hg] 95 mm[Hg] [facility] ([facility]) Omron, adult cuff/Ra Body height 68 [in_i] 68 [in_i] [facility] ([facility] 5'8" Body mass index (BMI) [Ratio] 30.0 kg/m2 30.0 k g/m2 [facility] ([facility] Heart rate 89 /min 89 /min [facility] ([facility]) Patient Treatment Plan of Care Planned Activity Planned Date Details Description Data Source (s) buspirone hydrochloride 7.5 MG Oral Tablet 04/09/2021 12:00:00 AM E [facility] Trazodone Hydrochloride 50 MG Oral Tablet 04/09/2021 12:00:00 AM ED [facility] Levothyroxine Sodium 0.088 MG Oral Tablet 06/03/2020 12:00:00 AM [facility] Levothyroxine Sodium 0.088 MG Oral Tablet 05/10/2019 12:00:00 AM [facility]
[2021-04-30 02:57] LABS: BASO % 0.2 % (0.0-1.0); HEMATOCRIT 44.8 % (36.0-47.0); HEMOGLOBIN 15.7 g/dl (12.0-15.5); LYMPH # 0.6 10^3/uL (1.5-5.0); LYMPH % 4.7 % (24.0-44.0); MEAN CORPUSCULAR HEMOGLOBIN 33.6 pg (27.0-33.0); MEAN CORPUSCULAR VOLUME 95.9 fl (80.0-96.0); MONO # 0.5 10^3/uL (0.0-0.8); MONO % 4.6 % (2.0-8.0); NEUTROPHILS # 10.7 10^3/uL (1.5-8.5); RED BLOOD COUNT 4.67 10^6/uL (4.00-5.40); WHITE BLOOD COUNT 11.8 10^3/uL (4.0-10.0)
[2021-04-30 02:58] LABS: PLATELET COUNT, AUTOMATED 64 10^3/uL (150-450)
[2021-04-30 03:27] LABS: ALT/SGPT 43 U/L (12-78); BILIRUBIN,DIRECT 0.5 MG/DL (0.0-0.2); BILIRUBIN,TOTAL 1.1 MG/DL (0.2-1.0); BLOOD UREA NITROGEN 9 MG/DL (7-18); CALCIUM LEVEL 8.7 MG/DL (8.5-10.1); CARBON DIOXIDE LEVEL 22 MEQ/L (21-32); CHLORIDE LEVEL 107 MEQ/L (98-107); GLOMERULAR FILTRATION RATE > 60.0 (>58); GLUCOSE, FASTING 122 MG/DL (70-100); LIPASE 3236 U/L (73-393); POTASSIUM SERUM 3.3 MEQ/L (3.5-5.1); SODIUM LEVEL 140 MEQ/L (136-145); TOTAL PROTEIN 7.5 GM/DL (6.4-8.2)
[2021-04-30 03:39] LABS: RSV AMPLIFICATION NEGATIVE (NEGATIVE)
[2021-04-30] MEDS ORDERED: ONDANSETRON 4MG/2ML VIAL IV ONE (04:15)
[2021-04-30] MEDS ORDERED: ACETAMINOPHEN TAB 650MG DOSE (2X325MG) PO PRN (05:35)
[2021-04-30] MEDS ORDERED: ENALAPRILAT INJ 2.5MG/2ML VIAL IV ONE (05:35)
[2021-04-30] MEDS ORDERED: MOM 30ML SUSPENSION UDC PO PRN (05:35)
[2021-04-30] MEDS ORDERED: MAALOX 30 ML SUSP *UDC PO PRN (05:35)
[2021-04-30] MEDS ORDERED: LR 1,000 ML IV SCH (05:40)
[2021-04-30] MEDS ORDERED: MORPHINE 2 MG/ML 1ML VIAL (J2270) IV ONE (06:20)
--- NOTE | 2021-04-30 06:33 | HPEPDOC ---
General Date of Admission Apr 30, 2021 at 05:21 Date of Service: Apr 30, 2021 Attending Physician: DEBI LORENZ MD Chief Complaint abdominal pain History of Present Illness History of present illness: Mrs. Ibarra is a 40 year old female presenting to the emergency department for severe abdominal pain and vomiting for the last two days. She states that the abdominal pain started on Tuesday, is located in the epigastric region, and is rated as a 10/10 at its worst. She has a history of pancreatitis and reports that she "knows when it is acting up" when her abdomen becomes rigid and bloated. The epigastric pain radiates to her chest occasionally. She started vomiting on Tuesday evening and has not been able to keep any food or liquids down. She has not taken any of her oral medications since Tuesday morning. Her daughter was recently diagnosed with T1DM and she has been so preoccupied with taking her to doctor's appointments that she has neglected herself. She presented to the emergency department yesterday where she was given fluids and pain/nausea medications. She was told to drink clear liquids and discharged home. She was unable to keep down any of the clear liquids and presented to the ED again last night. She denies fevers, chills, night sweats. She reports loss of appetite, nausea, lightheadedness, generalized weakness, and a reduction in urine production. She was given 1L of NS, 6mg morphine, and zofran in the ED for acute pancreatitis. Review of systems: General: denies fevers, chills. Admits weakness, fatigue, loss of appetite HEENT: denies changes in vision, difficulty swallowing, swollen glands. Admits to tinnitus Cardiovascular: admits to chest pain. Denies palpitations Pulmonary: denies shortness of breath, cough, or wheezing. Abdomen: admits severe epigastric abdominal pain, nausea, vomiting. Denies diarrhea or constipation. : admits to urinating less often. 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 She appears to be in pain but answers my questions. HEENT: PERRLA, EOMI, mucous membranes appear mildly dry, no lymphadenopathy. Cardiovascular: tachycardic with regular rhythm, no murmurs or gallops noted. Pulmonary: clear to auscultation bilaterally, no wheezes, rhonchi, or rales Abdomen: diffusely tender in all four quadrants especially epigastrically, bowel sounds present, soft Extremities: no edema or cyanosis, pulses 2+ throughout, capillary refill <2 seconds Skin: warm and dry. Her face appears flushed Psych: alert and oriented x [address] abd/Pelvis: Resolving pancreatitis. Diffuse fatty infiltration of the liver. Assessment: Mrs. Ibarra is a 40 year old female presenting to the emergency department for severe abdominal pain and vomiting for the last two days. In the ED she was found to have a WBC of 11.8 and a lipase of 3236. A CT abdomen/pelvis from her ED visit on 04/29/21 showed resolving pancreatitis. She is being admitted for treatment and pain management of pancreatitis. Plan: Acute Pancreatitis -lipase 3236, wbc 11.8 -2 day history of severe abdominal pain -CT Abdomen/pelvis shows resolving pancreatitis -will manage nausea with zofran -will manage pain with Dilaudid -Will aggressively hydrate patient with LR 250ml/hr x 2 bags, received 1L NS in ED -lipid panel pending, patient hospitalized for pancreatitis in September 2020 and had elevated triglyceride levels -Santino's criteria score: 0 -Keeping patient NPO -Ethyl alcohol pending Hypokalemia -3.3 -likely secondary to decreased oral intake -ordered 4kruns to be infused over 4 hours ITP -platelets are 64 -started patient on TEDs and Sequential for DVT prophylaxis -the patient is not actively bleeding -The day team may need to consult hematology/oncology today Hypertension -patient currently hypertensive -started vasotec Anxiety -hold home meds until patient can take po Depression -hold home meds until patient can take po Hypothyroidism -continue levothyroxine Class 1 obesity complicates care Disposition:home after at least 2 mignight's stay Home Medications Scheduled Amlodipine Besylate (Norvasc) 10 Mg Tablet, 10 MG PO DAILY Buspirone HCl (Buspirone HCl) 7.5 Mg Tablet, 7.5 MG PO BID, (Reported) Cefdinir (Cefdinir) 300 Mg Capsule, 300 MG PO BID, (Reported) STARTED ON 04/20/21 Clonazepam (Clonazepam) 0.5 Mg Tablet, 0.5 MG PO BID, (Reported) Fenofibrate Nanocrystallized (Fenofibrate) 48 Mg Tablet, 48 MG PO DAILY, (Reported) Levothyroxine Sodium (Synthroid) 75 Mcg Tablet, 75 MCG PO DAILY, (Reported) Trazodone HCl (Trazodone HCl) 50 Mg Tablet, 100 MG PO QHS, (Reported) Scheduled PRN Hydrocodone/Acetaminophen (Hydrocodone-Acetamin 5-325 mg) 1 Each Tablet, 1 TAB PO Q4H PRN for MODERATE PAIN (PS 5-7), (Reported) Hydrocodone/Acetaminophen (Hydrocodone-Acetamin 5-325 mg) 1 Each Tablet, 2 TAB PO Q4H PRN for SEVERE PAIN (PS 8-10), (Reported) Isosorbide Dinitrate (Isosorbide Dinitrate) 10 Mg Tablet, 10 MG PO TIDP PRN for sbp>140mmhg Ondansetron HCl (Zofran) 4 Mg Tablet, 4 MG PO Q6H PRN for NAUSEA OR VOMITING, (Reported) Allergies Coded Allergies: latex (Verified Allergy, Unknown, swelling , 08/17/19) A-FIB/CHADSVASC A-FIB History Current/History of A-Fib/PAF?: No Current PO Anticoag Therapy: No Vital Signs Vital Signs Date Time Temp Pulse Resp B/P (MAP) Pulse Ox O2 Delivery O2 Flow Rate FiO2 04/30/21 05:53 176/104 04/30/21 05:43 16 97 Nasal Cannula 2.0 04/30/21 03:13 101 04/30/21 00:02 98.0 Laboratory Data Labs 24H Laboratory Tests 2 04/30/21 02:11: Immature Granulocyte % (Auto) 0.5, Neutrophils (%) (Auto) 90.0H, Lymphocytes (%) (Auto) 4.7L, Monocytes (%) (Auto) 4.6, Eosinophils (%) (Auto) 0.0, Basophils (%) (Auto) 0.2, Neutrophils # (Auto) 10.7H, Lymphocytes # (Auto) 0.6L, Monocytes # (Auto) 0.5, Eosinophils # (Auto) 0.0, Basophils # (Auto) 0.0, Nucleated Red Blood Cells % (auto) 0.0, Anion Gap 11, Glomerular Filtration Rate > 60.0, Calcium Level 8.7, Total Bilirubin 1.1H, Direct Bilirubin 0.5H, Aspartate Amino Transf (AST/SGOT) 40H, Alanine Aminotransferase (ALT/SGPT) 43, Alkaline Phosphatase 75, Total Protein 7.5, Albumin 4.0, Albumin/Globulin Ratio 1.1L, Lipase 3236H, Coronavirus (COVID-19)(PCR) NEGATIVE, Influenza Type A (RT-PCR) NEGATIVE, Influenza Type B (RT-PCR) NEGATIVE, Respiratory Syncytial Virus (PCR) NEGATIVE CBC/BMP Laboratory Tests 04/30/21 02:11 Plan / VTE VTE Prophylaxis Ordered?: Yes GME ATTESTATION GME ATTESTATION My faculty preceptor for this patient encounter was physically present during e encounter and was fully available. All aspects of the patient interview, examination, medical decision making process, and medical care plan development were reviewed and approved by the faculty preceptor. The faculty preceptor is aware and concurs with the plan as stated in the body of this note and will attest to such by his/her cosignature. ATTENDING NOTE Time of service 645AM is a 40 yr old who is admitted for acute pancreatitis, hypokalemia 2/2 vomiting and HTN urgency. - we will keep her NPO with IVF, replete K, start zofran, and order enalaprilat for the acute elevation in BP rest per 's H&P TENISHA GODINEZ DO Apr 30, 2021 06:33 DEBI LORENZ MD Apr 30, 2021 07:01
[2021-04-30] MEDS ORDERED: SYNT75TA PO (06:38)
[2021-04-30] MEDS ORDERED: ZOFR4TAB16 PO (06:38)
[2021-04-30] MEDS ORDERED: FENO48TA8 PO (06:38)
[2021-04-30] MEDS ORDERED: LISI20TA33 PO (06:38)
[2021-04-30] MEDS ORDERED: HYDR-4571 PO (06:38)
[2021-04-30] MEDS ORDERED: CLON0.5T2 PO (06:38)
[2021-04-30] MEDS ORDERED: CEFD300CAP PO (06:39)
[2021-04-30] MEDS ORDERED: TRAZ-186 PO (06:39)
[2021-04-30] MEDS ORDERED: BUSP1TAB PO (06:39)
[2021-04-30] MEDS ORDERED: HOME MED LIST COMPLETE! XX SCH (06:40)
[2021-04-30] MEDS ORDERED: HYDROMORPHONE HCL 0.5 MG/ 0.5 ML SYRINGE (J1170 PER 1) IV PRN ×2 (07:10→07:50)
[2021-04-30] MEDS ORDERED: hydrALAZINE 20MG/ML 1ML VIAL (J0360 PER 20MG) IV SCH (07:10)
[2021-04-30] MEDS ORDERED: ONDANSETRON 4MG/2ML VIAL IV PRN (07:10)
[2021-04-30] MEDS ORDERED: HYDROmorphone HCL 2 MG/ML 1ML VIAL IV PRN (07:10)
[2021-04-30] MEDS ORDERED: MORPHINE 30 MG TAB **MSIR PO ONE (08:00)
[2021-04-30] MEDS ORDERED: MORPHINE 15 MG SA TAB PO ONE (08:00)
[2021-04-30] MEDS ORDERED: atenoloL 50 MG TAB PO ONE (08:00)
[2021-04-30] MEDS: ONDANSETRON 4MG/2ML VIAL IV SCH ×3 (08:15→21:01)
[2021-04-30 08:19] LABS: BASO % 0.2 % (0.0-1.0); EOS % 0.2 % (0.0-3.0); HEMATOCRIT 40.5 % (36.0-47.0); HEMOGLOBIN 14.3 g/dl (12.0-15.5); LYMPH # 0.7 10^3/uL (1.5-5.0); LYMPH % 6.4 % (24.0-44.0); MEAN CORPUSCULAR HEMOGLOBIN 33.8 pg (27.0-33.0); MEAN CORPUSCULAR HGB CONC 35.3 g/dl (32.0-36.5); MEAN CORPUSCULAR VOLUME 95.7 fl (80.0-96.0); MONO # 0.5 10^3/uL (0.0-0.8); MONO % 5.2 % (2.0-8.0); NEUTROPHILS # 9.1 10^3/uL (1.5-8.5); NEUTROPHILS % 87.6 % (36.0-66.0); RED BLOOD COUNT 4.23 10^6/uL (4.00-5.40); WHITE BLOOD COUNT 10.3 10^3/uL (4.0-10.0)
[2021-04-30 08:20] LABS: PLATELET COUNT, AUTOMATED 63 10^3/uL (150-450)
[2021-04-30] MEDS ORDERED: HYDROmorphone 2 MG TAB PO PRN ×2 (08:30)
[2021-04-30] MEDS ORDERED: PILL CUTTER 1 EACH XX ONE (08:32)
[2021-04-30] MEDS: DOCUSATE SODIUM 100MG CAPSULE PO SCH ×2 (08:36→21:02)
[2021-04-30] MEDS: KETOROLAC 30 MG/ML 1ML VIAL IV SCH ×3 (08:36→21:02)
[2021-04-30 08:37] LABS: INR 1.03; PROTHROMBIN TIME 13.9 SECONDS (12.7-14.5)
[2021-04-30] MEDS: KCL 10MEQ/100ML SWI (KRUN) 10 MEQ in IV 1 EA IV SCH ×4 (08:38→12:39)
[2021-04-30 08:54] LABS: CHOLESTEROL RISK RATIO 3.157 (<5); ETHYL ALCOHOL (ETHANOL) 0.005 % (0.000-0.010)
[2021-04-30] MEDS ORDERED: LEVOTHYROXINE 100MCG (0.1MG) VIAL IV SCH (09:00)
[2021-04-30 09:01] LABS: ALBUMIN 3.7 GM/DL (3.2-5.2); ALT/SGPT 38 U/L (12-78); AMYLASE 304 U/L (25-115); BILIRUBIN,TOTAL 0.9 MG/DL (0.2-1.0); BLOOD UREA NITROGEN 8 MG/DL (7-18); CALCIUM LEVEL 8.1 MG/DL (8.5-10.1); CARBON DIOXIDE LEVEL 25 MEQ/L (21-32); CHLORIDE LEVEL 109 MEQ/L (98-107); CHOLESTEROL LEVEL 172 MG/DL (<200); CHOLESTEROL RISK RATIO 2.965 (<5); CREATININE FOR GFR 0.57 MG/DL (0.55-1.30); GLOMERULAR FILTRATION RATE > 60.0 (>58); GLUCOSE, FASTING 125 MG/DL (70-100); HDL CHOLESTEROL 58 MG/DL (>40); LDL CHOLESTEROL 77 MG/DL (<100); LIPASE 2068 U/L (73-393); MAGNESIUM LEVEL 1.5 MG/DL (1.8-2.4); NON-HDL-C 114 MG/DL; SODIUM LEVEL 141 MEQ/L (136-145); TOTAL PROTEIN 6.8 GM/DL (6.4-8.2); TRIGLYCERIDES LEVEL 186 MG/DL (<150)
[2021-04-30 09:30] VITALS: BP 140/96
[2021-04-30] MEDS ORDERED: PILL CUTTER 1 EACH XX PRN (09:40)
[2021-04-30 10:00] VITALS: O2SAT 94
[2021-04-30] MEDS: LEVOTHYROXINE 75MCG TABLET (0.075MG) PO SCH (10:05)
[2021-04-30] MEDS ORDERED: MORPHINE 30 MG TAB **MSIR PO SCH (12:00)
[2021-04-30 12:20] LABS: URINE PREG TEST NEGATIVE (NEGATIVE)
[2021-04-30] MEDS: KCL 40MEQ in NS 1000ML 1,000 ML IV SCH ×3 (12:39→21:03)
[2021-04-30 14:00] VITALS: BP 119/73
[2021-04-30 14:10] LABS: MAGNESIUM LEVEL 1.5 MG/DL (1.8-2.4)
[2021-04-30] MEDS: MORPHINE 30 MG TAB **MSIR PO PRN ×2 (14:22→19:49)
[2021-04-30 15:17] LABS: MAGNESIUM LEVEL 1.5 MG/DL (1.8-2.4); POTASSIUM SERUM 3.8 MEQ/L (3.5-5.1)
[2021-04-30] MEDS ORDERED: POTASSIUM CHLORIDE 10MEQ SR TABLET PO ONE (16:15)
[2021-04-30] MEDS: MAG SULF 1GM/100ML (MAG RUN) 1 GM in IV 1 EA IV SCH ×2 (16:53→18:14)
[2021-04-30 21:00] VITALS: BP 117/73
[2021-04-30] MEDS ORDERED: atenoloL 50 MG TAB PO SCH (21:00)
[2021-04-30] MEDS ORDERED: MORPHINE 15 MG SA TAB PO SCH (21:00)
[2021-04-30] MEDS: clonazePAM 0.5 MG TAB PO SCH (21:02)
[2021-04-30] MEDS: traZODone 100 MG TAB PO SCH (21:02)
[2021-04-30] MEDS: busPIRone 5 MG TAB PO SCH (21:17)
[2021-05-01] MEDS: ONDANSETRON 4MG/2ML VIAL IV SCH ×4 (02:14→20:11)
[2021-05-01] MEDS: KETOROLAC 30 MG/ML 1ML VIAL IV SCH ×4 (02:14→20:12)
[2021-05-01 06:02] VITALS: BP 97/50
[2021-05-01] MEDS: LEVOTHYROXINE 75MCG TABLET (0.075MG) PO SCH (06:36)
[2021-05-01 07:38] LABS: BASO % 0.3 % (0.0-1.0); EOS # 0.1 10^3/uL (0.0-0.5); EOS % 1.8 % (0.0-3.0); HEMATOCRIT 32.5 % (36.0-47.0); LYMPH # 0.9 10^3/uL (1.5-5.0); LYMPH % 11.2 % (24.0-44.0); MEAN CORPUSCULAR HGB CONC 33.8 g/dl (32.0-36.5); MEAN CORPUSCULAR VOLUME 100.3 fl (80.0-96.0); MONO # 0.5 10^3/uL (0.0-0.8); MONO % 6.9 % (2.0-8.0); NEUTROPHILS # 6.1 10^3/uL (1.5-8.5); NEUTROPHILS % 79.1 % (36.0-66.0); RED BLOOD COUNT 3.24 10^6/uL (4.00-5.40); WHITE BLOOD COUNT 7.7 10^3/uL (4.0-10.0)
[2021-05-01 07:42] LABS: PLATELET COUNT, AUTOMATED 54 10^3/uL (150-450)
[2021-05-01 08:16] LABS: ALBUMIN 2.6 GM/DL (3.2-5.2); ALT/SGPT 24 U/L (12-78); BILIRUBIN,TOTAL 0.9 MG/DL (0.2-1.0); BLOOD UREA NITROGEN 8 MG/DL (7-18); CALCIUM LEVEL 7.2 MG/DL (8.5-10.1); CARBON DIOXIDE LEVEL 23 MEQ/L (21-32); CHLORIDE LEVEL 111 MEQ/L (98-107); CREATININE FOR GFR 0.42 MG/DL (0.55-1.30); GLOMERULAR FILTRATION RATE > 60.0 (>58); GLUCOSE, FASTING 81 MG/DL (70-100); LIPASE 388 U/L (73-393); SODIUM LEVEL 141 MEQ/L (136-145); TOTAL PROTEIN 5.3 GM/DL (6.4-8.2)
[2021-05-01] MEDS: FENOFIBRATE 48MG TABLET (TRICOR) PO SCH (10:24)
[2021-05-01] MEDS: clonazePAM 0.5 MG TAB PO SCH ×2 (10:24→20:11)
[2021-05-01] MEDS: DOCUSATE SODIUM 100MG CAPSULE PO SCH ×2 (10:24→20:11)
[2021-05-01] MEDS: NS 1,000 ML IV SCH ×2 (10:25→11:47)
[2021-05-01] MEDS: busPIRone 5 MG TAB PO SCH ×2 (10:25→20:12)
--- NOTE | 2021-05-01 11:28 | IPNPDOC ---
Date Seen The patient was seen on 05/01/21. Progress Note SUBJECTIVE: Patient denies any nausea vomiting epigastric pain is improved to 3 out of 10. No fever or chills. Despite IV fluids patient denies any shortness of breath. Patient had uncontrolled hypertension yesterday, improved today. Denies any headache changes in vision chest pain pressure tightness lightheadedness or dizziness OBJECTIVE PHYSICAL EXAMINATION: VITAL SIGNS: Please see below. GENERAL: No distress no icterus or jaundice HEENT: No JVD dry mucous membranes no cervical lymphadenopathy no stridor CARDIOVASCULAR: S1-S2 regular rate rhythm RESPIRATORY: Clear to auscultation no wheezing or rales ABDOMINAL: Slightly tender epigastric left upper quadrant no rebound guarding positive bowel sounds EXTREMITIES: No cyanosis clubbing or pitting edema LABORATORY DATA, IMAGING STUDIES, MICROBIOLOGY: Please see below. ASSESSMENT AND PLAN: 40-year-old female with history of pancreatitis ITP hypertension anxiety depression hypothyroidism presents emergency room with epigastric pain on Tuesday rated at 10 out of 10 at the worst Admitted for: Recurrent acute pancreatitis -Lipase on admission was 30-36. CT abdomen pelvis shows resolving pancreatitis. Patient was kept n.p.o. with IV fluids pain medications antiemetics Since patient's pain has resolved lipase is normal she will be advancing her liquid diet for breakfast and advance to Solid diet as tolerated Hypertension Now with blood pressure of 97 mmHg systolic Discontinued blood pressure medications Given IV fluids Hypokalemia Potassium supplemented ITP No active bleeding Compression stockings for DVT prophylaxis Anxiety depression Resumed on home medications Hypothyroidism On Synthroid Disposition discharge in the morning if stable overnight and tolerating her oral diet VS, I&O, 24H, Yeni Vital Signs/I&O Vital Signs Date Time Temp Pulse Resp B/P (MAP) Pulse Ox O2 Delivery O2 Flow Rate FiO2 05/01/21 06:02 98.4 82 20 97/50 (66 93 04/30/21 21:00 Room Air 04/30/21 05:43 2.0 I&O- Last 24 Hours up to 6 AM 05/01/21 06:00 Intake Total 4010 ml Output Total 600 ml Balance 3410 ml Laboratory Data 24H LABS Laboratory Tests 2 04/30/21 11:25: Urine Color JUSTINE, Urine Appearance CLOUDYH, Urine pH 5.0, Urine Specific Gravi ty 1.023, Urine Protein 1+H, Urine Glucose (UA) NEGATIVE, Urine Ketones TRACEH, Urine Blood NEGATIVE, Urine Nitrite NEGATIVE, Urine Bilirubin NEGATIVE, Urine Urobilinogen 2.0H, Urine Leukocyte Esterase NEGATIVE, Urine WBC (Auto) 3, Urine RBC (Auto) 0, Urine Hyaline Casts (Auto) 0, Urine Bacteria (Auto) NEGATIVE, Urine Squamous Epithelial Cells 3, Urine Mucus (Auto) SMALL, Urine Sperm (Auto) , Urine Test NEGATIVE 04/30/21 14:34: Magnesium Level 1.5L 04/30/21 22:53: Magnesium Level 2.1 05/01/21 07:18: Magnesium Level 2.0, Immature Granulocyte % (Auto) 0.7, Neutrophils (%) (Auto) 79.1H, Lymphocytes (%) (Auto) 11.2L, Monocytes (%) (Auto) 6.9, Eosinophils (%) (Auto) 1.8, Basophils (%) (Auto) 0.3, Neutrophils # (Auto) 6.1, Lymphocytes # (Auto) 0.9L, Monocytes # (Auto) 0.5, Eosinophils # (Auto) 0.1, Basophils # (Auto) 0.0, Nucleated Red Blood Cells % (auto) 0.0, Immature Platelet Fraction 8.8, Anion Gap 7L, Glomerular Filtration Rate > 60.0, Calcium Level 7.2L, Total Bilirubin 0.9, Aspartate Amino Transf (AST/SGOT) 22, Alanine Aminotransferase (ALT/SGPT) 24, Alkaline Phosphatase 60, Total Protein 5.3#L, Albumin 2.6#L, Albumin/Globulin Ratio 1.0L, Lipase 388 CBC/BMP Laboratory Tests 04/30/21 14:34 05/01/21 07:18 CARINA DEL TORO MD May 01, 2021 11:18
[2021-05-01] MEDS ORDERED: ISOS1TAB13 PO (11:34)
[2021-05-01] MEDS ORDERED: SELF1KIT MC (11:34)
[2021-05-01] MEDS ORDERED: AMLO10TA PO (11:34)
[2021-05-01 14:00] VITALS: BP 135/98
[2021-05-01] MEDS ORDERED: NALOXONE INJ 0.4MG/1ML VIAL (J2310 PER 1MG) IV PRN (14:15)
[2021-05-01] MEDS: MORPHINE 30 MG TAB **MSIR PO SCH ×3 (15:06→21:18)
[2021-05-01] MEDS: traZODone 100 MG TAB PO SCH (20:11)
[2021-05-01 22:00] VITALS: BP 142/86
[2021-05-02] MEDS: MORPHINE 30 MG TAB **MSIR PO SCH ×3 (01:13→08:29)
[2021-05-02] MEDS: KETOROLAC 30 MG/ML 1ML VIAL IV SCH ×2 (01:17→08:16)
[2021-05-02] MEDS: ONDANSETRON 4MG/2ML VIAL IV SCH ×2 (03:19→08:16)
[2021-05-02] MEDS: LEVOTHYROXINE 75MCG TABLET (0.075MG) PO SCH (05:25)
[2021-05-02 06:00] VITALS: BP 108/71
[2021-05-02 07:14] LABS: BASO % 0.5 % (0.0-1.0); EOS # 0.1 10^3/uL (0.0-0.5); EOS % 2.1 % (0.0-3.0); HEMATOCRIT 33.2 % (36.0-47.0); HEMATOCRIT 33.3 % (36.0-47.0); HEMOGLOBIN 11.3 g/dl (12.0-15.5); HEMOGLOBIN 11.5 g/dl (12.0-15.5); LYMPH # 0.8 10^3/uL (1.5-5.0); LYMPH % 14.1 % (24.0-44.0); MEAN CORPUSCULAR HEMOGLOBIN 33.6 pg (27.0-33.0); MEAN CORPUSCULAR HEMOGLOBIN 34.3 pg (27.0-33.0); MEAN CORPUSCULAR HGB CONC 34.5 g/dl (32.0-36.5); MEAN CORPUSCULAR VOLUME 98.8 fl (80.0-96.0); MEAN CORPUSCULAR VOLUME 99.4 fl (80.0-96.0); MONO # 0.5 10^3/uL (0.0-0.8); MONO % 8.2 % (2.0-8.0); NEUTROPHILS # 4.2 10^3/uL (1.5-8.5); NEUTROPHILS % 74.7 % (36.0-66.0); RED BLOOD COUNT 3.35 10^6/uL (4.00-5.40); RED BLOOD COUNT 3.36 10^6/uL (4.00-5.40); WHITE BLOOD COUNT 5.6 10^3/uL (4.0-10.0); WHITE BLOOD COUNT 5.7 10^3/uL (4.0-10.0)
[2021-05-02 07:21] LABS: PLATELET COUNT, AUTOMATED 65 10^3/uL (150-450)
[2021-05-02 07:23] LABS: PLATELET COUNT, AUTOMATED 64 10^3/uL (150-450)
[2021-05-02 07:34] LABS: ALBUMIN 2.6 GM/DL (3.2-5.2); ALT/SGPT 21 U/L (12-78); BILIRUBIN,TOTAL 0.8 MG/DL (0.2-1.0); BLOOD UREA NITROGEN 5 MG/DL (7-18); CALCIUM LEVEL 7.5 MG/DL (8.5-10.1); CARBON DIOXIDE LEVEL 25 MEQ/L (21-32); CHLORIDE LEVEL 107 MEQ/L (98-107); CREATININE FOR GFR 0.53 MG/DL (0.55-1.30); GLOMERULAR FILTRATION RATE > 60.0 (>58); GLUCOSE, FASTING 93 MG/DL (70-100); POTASSIUM SERUM 3.5 MEQ/L (3.5-5.1); SODIUM LEVEL 137 MEQ/L (136-145); TOTAL PROTEIN 5.6 GM/DL (6.4-8.2)
--- NOTE | 2021-05-02 07:53 | DS.PDOC ---
Discharge Summary General Date of Admission Apr 30, 2021 at 05:21 Date of Discharge 05/02/21 Discharge Summary DISCHARGE DIAGNOSES: Acute pancreatitis ITP Uncontrolled HTN anxiety depression hypothyroidism DISCHARGE MEDICATIONS: SEE BELOW DISCHARGE INSTRUCTIONS: PCP AND GI FU 1WK HOSPITAL COURSE: 40-year-old female with history of pancreatitis ITP hypertension anxiety depression hypothyroidism presents emergency room with epigastric pain on Tuesday rated at 10 out of 10 at the worst Admitted for: Recurrent acute pancreatitis -Lipase on admission was 3036. CT abdomen pelvis shows resolving pancreatitis. Patient was initially kept n.p.o. with IV fluids pain medications antiemetics Since patient's pain has resolved lipase is normal her diet was advanced as tolerated w/o n/v. pain resolved w msir and iv toradol Hypertension, uncontrolled on admission lisinopril held due to pancreatitis pt was given norvasc atenolol and isosorbide prn with good control heart rate improved from 113 to 80 w atenolol pt may continue norvasc and prn isosorbide at home Hypokalemia Potassium supplemented ITP No active bleeding Compression stockings for DVT prophylaxis Anxiety depression Resumed on home medications Hypothyroidism On Synthroid Headache given toradol, fioricet, and maxalt prn. DISCHARGE PHYSICAL EXAMINATION: VITAL SIGNS: Please see below. GENERAL: No distress no icterus or jaundice HEENT: No JVD dry mucous membranes no cervical lymphadenopathy no stridor CARDIOVASCULAR: S1-S2 regular rate rhythm RESPIRATORY: Clear to auscultation no wheezing or rales ABDOMINAL: Slightly tender epigastric left upper quadrant no rebound guarding positive bowel sounds EXTREMITIES: No cyanosis clubbing or pitting edema LABORATORY DATA, IMAGING STUDIES, MICROBIOLOGY: Please see below. TIME SPENT ON DISCHARGE: 30 MINUTES Vital Signs/I&Os Vital Signs Date Time Temp Pulse Resp B/P (MAP) Pulse Ox O2 Delivery O2 Flow Rate FiO2 05/01/21 22:00 98.3 91 18 142/86 (104) 94 Room Air 04/30/21 05:43 2.0 I&O- Last 24 Hours up to 6 AM 05/02/21 06:00 Intake Total 680 ml Output Total 1400 ml Balance -720 ml Laboratory Data Labs 24H Laboratory Tests 2 05/01/21 11:44: Urine Color JUSTINE, Urine Appearance HAZY, Urine pH 5.0, Urine Specific [place] 1.017, Urine Protein NEGATIVE, Urine Glucose (UA) NEGATIVE, Urine Ketones TRACEH, Urine Blood NEGATIVE, Urine Nitrite NEGATIVE, Urine Bilirubin 1+H, Urine Urobilinogen 4.0H, Urine Leukocyte Esterase NEGATIVE, Urine WBC (Auto) 4H, Urine RBC (Auto) 0, Urine Hyaline Casts (Auto) 0, Urine Bacteria (Auto) NEGATIVE, Urine Squamous Epithelial Cells 8, Urine Mucus (Auto) SMALL, Urine Sperm (Auto) 05/02/21 06:39: Immature Granulocyte % (Auto) 0.4, Neutrophils (%) (Auto) 74.7H, Lymphocytes (%) (Auto) 14.1L, Monocytes (%) (Auto) 8.2H, Eosinophils (%) (Auto) 2.1, Basophils (%) (Auto) 0.5, Neutrophils # (Auto) 4.2, Lymphocytes # (Auto) 0.8L, Monocytes # (Auto) 0.5, Eosinophils # (Auto) 0.1, Basophils # (Auto) 0.0, Nucleated Red Blood Cells % (auto) 0.0, Anion Gap 5L, Glomerular Filtration Rate > 60.0, Calcium Level 7.5L, Total Bilirubin 0.8, Aspartate Amino Transf (AST/SGOT) 20, Alanine Aminotransferase (ALT/SGPT) 21, Alkaline Phosphatase 95, Total Protein 5.6L, Albumin 2.6L, Albumin/Globulin Ratio 0.9L, Lipase 202 CBC/BMP Laboratory Tests 05/02/21 06:39 Discharge Medications Scheduled Amlodipine Besylate (Norvasc) 10 Mg Tablet, 10 MG PO DAILY Buspirone HCl (Buspirone HCl) 7.5 Mg Tablet, 7.5 MG PO BID, (Reported) Cefdinir (Cefdinir) 300 Mg Capsule, 300 MG PO BID, (Reported) STARTED ON 04/20/21 Clonazepam (Clonazepam) 0.5 Mg Tablet, 0.5 MG PO BID, (Reported) Fenofibrate Nanocrystallized (Fenofibrate) 48 Mg Tablet, 48 MG PO DAILY, (Reported) Levothyroxine Sodium (Synthroid) 75 Mcg Tablet, 75 MCG PO DAILY, (Reported) Trazodone HCl (Trazodone HCl) 50 Mg Tablet, 100 MG PO QHS, (Reported) Scheduled PRN Hydrocodone/Acetaminophen (Hydrocodone-Acetamin 5-325 mg) 1 Each Tablet, 1 TAB PO Q4H PRN for MODERATE PAIN (PS 5-7), (Reported) Hydrocodone/Acetaminophen (Hydrocodone-Acetamin 5-325 mg) 1 Each Tablet, 2 TAB PO Q4H PRN for SEVERE PAIN (PS 8-10), (Reported) Isosorbide Dinitrate (Isosorbide Dinitrate) 10 Mg Tablet, 10 MG PO TIDP PRN for sbp>140mmhg Ondansetron HCl (Zofran) 4 Mg Tablet, 4 MG PO Q6H PRN for NAUSEA OR VOMITING, (Reported) Allergies Coded Allergies: latex (Verified Allergy, Unknown, swelling , 08/17/19) CARINA DEL TORO MD May 02, 2021 07:53
[2021-05-02] MEDS ORDERED: atenoloL 25 MG TAB PO ONE (08:00)
[2021-05-02] MEDS ORDERED: FIORICET TAB PO ONE (08:00)
[2021-05-02] MEDS ORDERED: METOCLOPRAMIDE INJ 10MG/2ML VIAL (J2765 PER 1) IV ONE (08:00)
[2021-05-02 08:16] VITALS: BP 142/99
[2021-05-02] MEDS: clonazePAM 0.5 MG TAB PO SCH (08:16)
[2021-05-02] MEDS: DOCUSATE SODIUM 100MG CAPSULE PO SCH (08:17)
[2021-05-02] MEDS: FENOFIBRATE 48MG TABLET (TRICOR) PO SCH (08:17)
[2021-05-02] MEDS: busPIRone 5 MG TAB PO SCH (08:17)
[2021-05-02] MEDS ORDERED: RIZATRIPTAN BENZOATE 10 MG TAB PO ONE (09:00)
--- NOTE | 2021-05-02 11:37 | DS.PDOC ---
Discharge Summary General Date of Admission Apr 30, 2021 at 05:21 Date of Discharge 05/02/21 Discharge Summary Medical Certificate for Leave of Absence from Work Pauline Lang MD [place] [id number] May 02, 2021 RE: IRENE OCHOA 80 To Whom It May Concern: Mrs. Ochoa was hospitalized from 04/30/21 to 05/02/21, and may return to work without activity restrictions on Tuesday05/04/21. If any questions should arise, please contact my office at [phone]. Sincerely, Pauline Lang MD Vital Signs/I&Os Vital Signs Date Time Temp Pulse Resp B/P (MAP) Pulse Ox O2 Delivery O2 Flow Rate FiO2 05/02/21 09:13 18 05/02/21 08:16 88 142/99 05/02/21 08:15 Room Air 05/02/21 06:00 98.7 93 04/30/21 05:43 2.0 I&O- Last 24 Hours up to 6 AM 05/02/21 06:00 Intake Total 830 ml Output Total 1600 ml Balance -770 ml Laboratory Data Labs 24H Laboratory Tests 2 05/01/21 11:44: Urine Color JUSTINE, Urine Appearance HAZY, Urine pH 5.0, Urine Specific [place] 1.017, Urine Protein NEGATIVE, Urine Glucose (UA) NEGATIVE, Urine Ketones TRACEH, Urine Blood NEGATIVE, Urine Nitrite NEGATIVE, Urine Bilirubin 1+H, Urine Urobilinogen 4.0H, Urine Leukocyte Esterase NEGATIVE, Urine WBC (Auto) 4H, Urine RBC (Auto) 0, Urine Hyaline Casts (Auto) 0, Urine Bacteria (Auto) NEGATIVE, Urine Squamous Epithelial Cells 8, Urine Mucus (Auto) SMALL, Urine Sperm (Auto) 05/02/21 06:39: Immature Granulocyte % (Auto) 0.4, Neutrophils (%) (Auto) 74.7H, Lymphocytes (%) (Auto) 14.1L, Monocytes (%) (Auto) 8.2H, Eosinophils (%) (Auto) 2.1, Basophils (%) (Auto) 0.5, Neutrophils # (Auto) 4.2, Lymphocytes # (Auto) 0.8L, Monocytes # (Auto) 0.5, Eosinophils # (Auto) 0.1, Basophils # (Auto) 0.0, Nucleated Red Blood Cells % (auto) 0.0, Anion Gap 5L, Glomerular Filtration Rate > 60.0, Calcium Level 7.5L, Total Bilirubin 0.8, Aspartate Amino Transf (AST/SGOT) 20, Alanine Aminotransferase (ALT/SGPT) 21, Alkaline Phosphatase 95, Total Protein 5.6L, Albumin 2.6L, Albumin/Globulin Ratio 0.9L, Lipase 202 CBC/BMP Laboratory Tests 05/02/21 06:39 Discharge Medications Scheduled Amlodipine Besylate (Norvasc) 10 Mg Tablet, 10 MG PO DAILY Buspirone HCl (Buspirone HCl) 7.5 Mg Tablet, 7.5 MG PO BID, (Reported) Cefdinir (Cefdinir) 300 Mg Capsule, 300 MG PO BID, (Reported) STARTED ON 04/20/21 Clonazepam (Clonazepam) 0.5 Mg Tablet, 0.5 MG PO BID, (Reported) Fenofibrate Nanocrystallized (Fenofibrate) 48 Mg Tablet, 48 MG PO DAILY, (Reported) Levothyroxine Sodium (Synthroid) 75 Mcg Tablet, 75 MCG PO DAILY, (Reported) Trazodone HCl (Trazodone HCl) 50 Mg Tablet, 100 MG PO QHS, (Reported) Scheduled PRN Hydrocodone/Acetaminophen (Hydrocodone-Acetamin 5-325 mg) 1 Each Tablet, 1 TAB PO Q4H PRN for MODERATE PAIN (PS 5-7), (Reported) Hydrocodone/Acetaminophen (Hydrocodone-Acetamin 5-325 mg) 1 Each Tablet, 2 TAB PO Q4H PRN for SEVERE PAIN (PS 8-10), (Reported) Isosorbide Dinitrate (Isosorbide Dinitrate) 10 Mg Tablet, 10 MG PO TIDP PRN for sbp>140mmhg Ondansetron HCl (Zofran) 4 Mg Tablet, 4 MG PO Q6H PRN for NAUSEA OR VOMITING, (Reported) Allergies Coded Allergies: latex (Verified Allergy, Unknown, swelling , 08/17/19) PAULINE LANG MD May 02, 2021 11:37
== END 2021-05-02 12:06 | disposition home or self-care (01) | DRG 439 ==
LOC: M ED 23:58 → M ED INP 04-30 05:21 → ENRESERV 04-30 05:53 → M MSPAV 04-30 09:27
PROVIDERS: ADMIT Internal Medicine; ATTEND General Practice
DX: K85.90 Acute pancreatitis without necrosis or infection, unspecified (principal); D69.3 Immune thrombocytopenic purpura; E87.6 Hypokalemia; I10 Essential (primary) hypertension; F41.9 Anxiety disorder, unspecified; F32.A Depression, unspecified; E03.9 Hypothyroidism, unspecified; E66.9 Obesity, unspecified; Z90.49 Acquired absence of other specified parts of digestive tract; Z79.899 Other long term (current) drug therapy; Z91.040 Latex allergy status; Z20.822 Contact with and (suspected) exposure to COVID-19

== ENCOUNTER 2021-09-29 09:55 | Inpatient (IN) | payer OTHER ==
[~2021-09-29] VITALS: Ht 172.7 cm; Wt 85.9 kg
[2021-09-29 09:15] VITALS: BP 142/88
[~2021-09-29 09:55] MED LIST changes: +AMLO10TA PO; +BUSP1TAB PO; +CEFD300CAP PO; +CLON0.5T2 PO; +HYDR-4571 PO; +ISOS10TA3 PO; +LISI20TA33 PO; +SELF1KIT MC; +SYNT75TA PO; +TRAZ-186 PO
[2021-09-29] MEDS ORDERED: HYDR50TA70 (10:12)
[2021-09-29 10:37] LABS: HEMATOCRIT 42.3 % (36.0-47.0); HEMOGLOBIN 14.9 g/dl (12.0-15.5); MEAN CORPUSCULAR HEMOGLOBIN 29.9 pg (27.0-33.0); MEAN CORPUSCULAR HGB CONC 35.2 g/dl (32.0-36.5); MEAN CORPUSCULAR VOLUME 84.9 fl (80.0-96.0); PLATELET COUNT, AUTOMATED 142 10^3/uL (150-450); RED BLOOD COUNT 4.98 10^6/uL (4.00-5.40); WHITE BLOOD COUNT 11.2 10^3/uL (4.0-10.0)
[2021-09-29] MEDS ORDERED: PANTOPRAZOLE 40MG VIAL IV ONE (11:00)
[2021-09-29] MEDS ORDERED: MORPHINE 4 MG/ML 1ML VIAL/SYRINGE IV ONE (11:00)
[2021-09-29] MEDS ORDERED: ONDANSETRON 4MG/2ML VIAL IV PRN (11:00)
[2021-09-29 11:01] LABS: ALBUMIN 4.4 GM/DL (3.2-5.2); ALT/SGPT 43 U/L (12-78); BILIRUBIN,DIRECT 0.3 MG/DL (0.0-0.2); BILIRUBIN,TOTAL 0.9 MG/DL (0.2-1.0); BLOOD UREA NITROGEN 21 MG/DL (7-18); CALCIUM LEVEL 13.4 MG/DL (8.5-10.1); CARBON DIOXIDE LEVEL 26 MEQ/L (21-32); CHLORIDE LEVEL 101 MEQ/L (98-107); CREATININE FOR GFR 0.94 MG/DL (0.55-1.30); GLOMERULAR FILTRATION RATE > 60.0 (>58); GLUCOSE, FASTING 125 MG/DL (70-100); POTASSIUM SERUM 4.3 MEQ/L (3.5-5.1); SODIUM LEVEL 135 MEQ/L (136-145); TOTAL PROTEIN 7.8 GM/DL (6.4-8.2)
[2021-09-29] MEDS ORDERED: METOCLOPRAMIDE INJ 10MG/2ML VIAL (J2765 PER 1) IV ONE ×2 (11:15→19:05)
[2021-09-29 11:50] LABS: LDH LACTATE DEHYDROGENASE 185 U/L (84-246); LIPASE 1522 U/L (73-393)
[2021-09-29 12:02] LABS: HCG, SERUM QUALITATIVE NEGATIVE (NEGATIVE)
[2021-09-29] MEDS ORDERED: FOLI1TAB11 PO (12:36)
[2021-09-29] MEDS ORDERED: CLON1TAB8 PO (12:36)
[2021-09-29] MEDS ORDERED: CYAN100050 PO (12:36)
[2021-09-29] MEDS ORDERED: PRIL20TA2 PO (12:36)
[2021-09-29] MEDS ORDERED: FENO67CA12 PO (12:36)
[2021-09-29] MEDS: GASTROGRAFIN SOLUTION 30ML PO SCH ×2 (12:38→13:09)
[2021-09-29] MEDS ORDERED: HOME MED LIST COMPLETE! XX SCH (12:40)
[2021-09-29] MEDS: MORPHINE 4 MG/ML 1ML VIAL/SYRINGE IV PRN (12:56)
[2021-09-29] MEDS ORDERED: ISOVUE-370 76% 100ML VIAL As Ordered ONE (13:15)
[2021-09-29] MEDS ORDERED: NS 1,000 ML IV ONE (13:35)
[2021-09-29 13:48] LABS: RSV AMPLIFICATION NEGATIVE (NEGATIVE)
[2021-09-29] MEDS ORDERED: MORPHINE 2 MG/ML 1ML VIAL IV PRN ×3 (14:05)
[2021-09-29] MEDS ORDERED: OMEPRAZOLE 20MG CAP PO PRN (14:05)
[2021-09-29] MEDS ORDERED: MAALOX 30 ML SUSP *UDC PO PRN (14:05)
[2021-09-29] MEDS: ONDANSETRON 4MG/2ML VIAL IV PRN ×2 (15:09→22:50)
[2021-09-29] MEDS: LEVOTHYROXINE 75MCG TABLET (0.075MG) PO SCH (15:12)
[2021-09-29] MEDS: FOLIC ACID 1 MG TAB PO SCH (15:13)
[2021-09-29 16:15] VITALS: BP 154/110
[2021-09-29] MEDS ORDERED: HYDROMORPHONE HCL 0.5 MG/ 0.5 ML SYRINGE (J1170 PER 1) IV PRN (16:20)
[2021-09-29] MEDS: HYDROMORPHONE HCL 0.5 MG/ 0.5 ML SYRINGE (J1170 PER 1) IV PRN ×3 (16:49→22:52)
[2021-09-29] MEDS: NS 1,000 ML IV SCH ×2 (17:36→22:52)
[2021-09-29] MEDS: clonazePAM 1 MG TAB PO SCH ×2 (17:40→21:00)
[2021-09-29] MEDS ORDERED: KETOROLAC 30 MG/ML 1ML VIAL IV ONE (19:05)
[2021-09-29 19:10] VITALS: BP 142/88
[2021-09-29 21:00] LABS: CK-MB VALUE MASS < 1.0 NG/ML (<3.6); CPK CREATINE PHOSPHOKINASE 28 U/L (26-192); MB/CK RELATIVE INDEX 3.57 (< OR =4)
[2021-09-29] MEDS: DOCUSATE SODIUM 100MG CAPSULE PO SCH (21:00)
[2021-09-29 22:00] VITALS: BP 138/80
[2021-09-29] MEDS: traZODone 50 MG TAB PO SCH (22:51)
[2021-09-30] MEDS: METOCLOPRAMIDE INJ 10MG/2ML VIAL (J2765 PER 1) IV PRN ×3 (01:08→14:29)
[2021-09-30] MEDS: MORPHINE 4 MG/ML 1ML VIAL/SYRINGE IV PRN (01:09)
[2021-09-30] MEDS: NS 1,000 ML IV SCH ×4 (02:05→22:12)
[2021-09-30] MEDS: HYDROMORPHONE HCL 0.5 MG/ 0.5 ML SYRINGE (J1170 PER 1) IV PRN ×2 (02:05→04:48)
[2021-09-30] MEDS: ONDANSETRON 4MG/2ML VIAL IV PRN ×3 (04:45→17:33)
[2021-09-30] MEDS: LEVOTHYROXINE 75MCG TABLET (0.075MG) PO SCH (05:00)
[2021-09-30 05:03] VITALS: BP 138/94
[2021-09-30] MEDS: HYDROmorphone HCL 2MG/ML 1ML VIAL IV PRN ×5 (08:01→21:41)
[2021-09-30] MEDS: FOLIC ACID 1 MG TAB PO SCH (08:12)
[2021-09-30] MEDS: DOCUSATE SODIUM 100MG CAPSULE PO SCH ×2 (08:12→19:33)
[2021-09-30] MEDS: ENOXAPARIN 40MG/0.4ML SYRINGE (J1650 PER 10MG) SC SCH (08:12)
[2021-09-30] MEDS: clonazePAM 1 MG TAB PO SCH ×3 (08:13→21:40)
[2021-09-30 09:48] LABS: HEMATOCRIT 39.2 % (36.0-47.0); HEMOGLOBIN 13.3 g/dl (12.0-15.5); MEAN CORPUSCULAR HEMOGLOBIN 29.4 pg (27.0-33.0); MEAN CORPUSCULAR HGB CONC 33.9 g/dl (32.0-36.5); MEAN CORPUSCULAR VOLUME 86.7 fl (80.0-96.0); PLATELET COUNT, AUTOMATED 102 10^3/uL (150-450); RED BLOOD COUNT 4.52 10^6/uL (4.00-5.40); WHITE BLOOD COUNT 14.6 10^3/uL (4.0-10.0)
[2021-09-30 10:37] LABS: ALBUMIN 3.6 GM/DL (3.2-5.2); ALT/SGPT 30 U/L (12-78); BLOOD UREA NITROGEN 18 MG/DL (7-18); CALCIUM LEVEL 9.9 MG/DL (8.5-10.1); CARBON DIOXIDE LEVEL 28 MEQ/L (21-32); CHLORIDE LEVEL 108 MEQ/L (98-107); CREATININE FOR GFR 0.83 MG/DL (0.55-1.30); GLOMERULAR FILTRATION RATE > 60.0 (>58); GLUCOSE, FASTING 124 MG/DL (70-100); MAGNESIUM LEVEL 1.4 MG/DL (1.8-2.4); POTASSIUM SERUM 3.9 MEQ/L (3.5-5.1); SODIUM LEVEL 140 MEQ/L (136-145); TOTAL PROTEIN 6.6 GM/DL (6.4-8.2)
[2021-09-30 10:39] LABS: BASO % 0.1 % (0.0-1.0); EOS % 0.1 % (0.0-3.0); LYMPH # 0.5 10^3/uL (1.5-5.0); LYMPH % 3.3 % (24.0-44.0); MONO # 0.8 10^3/uL (0.0-0.8); MONO % 5.5 % (2.0-8.0); NEUTROPHILS # 13.3 10^3/uL (1.5-8.5); NEUTROPHILS % 90.8 % (36.0-66.0)
[2021-09-30 11:06] LABS: BILIRUBIN,TOTAL 0.7 MG/DL (0.2-1.0); CHOLESTEROL LEVEL 167 MG/DL (<200); CHOLESTEROL RISK RATIO 4.638 (<5); HDL CHOLESTEROL 36 MG/DL (>40); LDL CHOLESTEROL 69 MG/DL (<100); LIPASE 1309 U/L (73-393); NON-HDL-C 131 MG/DL; TRIGLYCERIDES LEVEL 308 MG/DL (<150)
[2021-09-30] MEDS: PIPERACILLIN/TAZOBACTAM SOD 3.375 GM in D5W MINI-BAG PLUS 50 ML IV SCH ×2 (12:09→17:33)
[2021-09-30] MEDS: MAG SULF 1GM/100ML (MAG RUN) 1 GM in IV 1 EA IV SCH ×2 (13:26→15:19)
[2021-09-30] MEDS: KETOROLAC 30 MG/ML 1ML VIAL IV PRN ×2 (13:26→19:34)
[2021-09-30 14:00] VITALS: BP 132/92
[2021-09-30] MEDS: ACETAMINOPHEN TAB 650MG DOSE (2X325MG) PO PRN (17:34)
[2021-09-30] MEDS: traZODone 50 MG TAB PO SCH (21:40)
[2021-09-30 22:00] VITALS: BP 122/69
[2021-10-01] MEDS: HYDROmorphone HCL 2MG/ML 1ML VIAL IV PRN ×3 (00:46→07:45)
[2021-10-01] MEDS: PIPERACILLIN/TAZOBACTAM SOD 3.375 GM in D5W MINI-BAG PLUS 50 ML IV SCH ×4 (00:46→17:15)
[2021-10-01] MEDS: ONDANSETRON 4MG/2ML VIAL IV PRN ×3 (00:46→20:51)
[2021-10-01] MEDS: NS 1,000 ML IV SCH (03:04)
[2021-10-01 06:00] VITALS: BP 119/70
[2021-10-01] MEDS: LEVOTHYROXINE 75MCG TABLET (0.075MG) PO SCH (06:07)
[2021-10-01 06:58] LABS: BASO % 0.3 % (0.0-1.0); EOS # 0.1 10^3/uL (0.0-0.5); EOS % 1.3 % (0.0-3.0); HEMATOCRIT 30.2 % (36.0-47.0); LYMPH # 0.7 10^3/uL (1.5-5.0); LYMPH % 6.7 % (24.0-44.0); MEAN CORPUSCULAR HEMOGLOBIN 29.9 pg (27.0-33.0); MEAN CORPUSCULAR HGB CONC 34.1 g/dl (32.0-36.5); MEAN CORPUSCULAR VOLUME 87.8 fl (80.0-96.0); MONO # 0.8 10^3/uL (0.0-0.8); MONO % 7.4 % (2.0-8.0); NEUTROPHILS # 8.6 10^3/uL (1.5-8.5); NEUTROPHILS % 83.6 % (36.0-66.0); RED BLOOD COUNT 3.44 10^6/uL (4.00-5.40); WHITE BLOOD COUNT 10.3 10^3/uL (4.0-10.0)
[2021-10-01 07:00] LABS: HEMOGLOBIN 10.3 g/dl (12.0-15.5); PLATELET COUNT, AUTOMATED 81 10^3/uL (150-450)
[2021-10-01 07:26] LABS: ALBUMIN 2.6 GM/DL (3.2-5.2); ALT/SGPT 27 U/L (12-78); BLOOD UREA NITROGEN 12 MG/DL (7-18); CALCIUM LEVEL 8.5 MG/DL (8.5-10.1); CARBON DIOXIDE LEVEL 26 MEQ/L (21-32); CHLORIDE LEVEL 108 MEQ/L (98-107); CREATININE FOR GFR 0.66 MG/DL (0.55-1.30); GLOMERULAR FILTRATION RATE > 60.0 (>58); GLUCOSE, FASTING 105 MG/DL (70-100); LIPASE 338 U/L (73-393); MAGNESIUM LEVEL 1.9 MG/DL (1.8-2.4); POTASSIUM SERUM 4.4 MEQ/L (3.5-5.1); SODIUM LEVEL 137 MEQ/L (136-145)
[2021-10-01] MEDS: DOCUSATE SODIUM 100MG CAPSULE PO SCH ×2 (07:44→20:08)
[2021-10-01] MEDS: FOLIC ACID 1 MG TAB PO SCH (07:44)
[2021-10-01] MEDS: clonazePAM 1 MG TAB PO SCH ×3 (07:44→20:08)
[2021-10-01] MEDS: ENOXAPARIN 40MG/0.4ML SYRINGE (J1650 PER 10MG) SC SCH (07:45)
[2021-10-01] MEDS ORDERED: FLUBLOK(EGG FREE)(QUAD)INFLUENZA VACC 0.5ML SYRINGE 18YRS & OLDER IM ONE (09:00)
[2021-10-01] MEDS: KETOROLAC 30 MG/ML 1ML VIAL IV PRN ×2 (09:58→20:07)
[2021-10-01] MEDS: HYDROMORPHONE HCL 0.5 MG/ 0.5 ML SYRINGE (J1170 PER 1) IV PRN ×4 (11:12→23:45)
[2021-10-01 14:00] VITALS: BP 131/89
[2021-10-01] MEDS ORDERED: SENNA 8.6 MG TAB (SENOKOT) PO PRN (14:40)
[2021-10-01] MEDS: ACETAMINOPHEN TAB 650MG DOSE (2X325MG) PO PRN (14:50)
[2021-10-01] MEDS: traZODone 50 MG TAB PO SCH (20:08)
[2021-10-01 22:00] VITALS: BP 133/89
[2021-10-02] MEDS: PIPERACILLIN/TAZOBACTAM SOD 3.375 GM in D5W MINI-BAG PLUS 50 ML IV SCH ×4 (00:20→18:36)
[2021-10-02] MEDS: METOCLOPRAMIDE INJ 10MG/2ML VIAL (J2765 PER 1) IV PRN ×2 (02:49→16:36)
[2021-10-02] MEDS: HYDROMORPHONE HCL 0.5 MG/ 0.5 ML SYRINGE (J1170 PER 1) IV PRN ×4 (02:50→12:37)
[2021-10-02 06:00] VITALS: BP 146/96
[2021-10-02] MEDS: LEVOTHYROXINE 75MCG TABLET (0.075MG) PO SCH (06:17)
[2021-10-02 07:00] LABS: BASO % 0.3 % (0.0-1.0); EOS # 0.2 10^3/uL (0.0-0.5); EOS % 1.7 % (0.0-3.0); HEMATOCRIT 31.5 % (36.0-47.0); HEMOGLOBIN 10.8 g/dl (12.0-15.5); LYMPH # 1.1 10^3/uL (1.5-5.0); MEAN CORPUSCULAR HEMOGLOBIN 29.5 pg (27.0-33.0); MEAN CORPUSCULAR HGB CONC 34.3 g/dl (32.0-36.5); MEAN CORPUSCULAR VOLUME 86.1 fl (80.0-96.0); MONO # 0.7 10^3/uL (0.0-0.8); MONO % 7.1 % (2.0-8.0); NEUTROPHILS # 7.2 10^3/uL (1.5-8.5); PLATELET COUNT, AUTOMATED 110 10^3/uL (150-450); RED BLOOD COUNT 3.66 10^6/uL (4.00-5.40); WHITE BLOOD COUNT 9.2 10^3/uL (4.0-10.0)
[2021-10-02 07:18] LABS: ALBUMIN 2.9 GM/DL (3.2-5.2); ALT/SGPT 18 U/L (12-78); BILIRUBIN,TOTAL 0.7 MG/DL (0.2-1.0); BLOOD UREA NITROGEN 8 MG/DL (7-18); CALCIUM LEVEL 8.3 MG/DL (8.5-10.1); CARBON DIOXIDE LEVEL 26 MEQ/L (21-32); CHLORIDE LEVEL 106 MEQ/L (98-107); CREATININE FOR GFR 0.67 MG/DL (0.55-1.30); GLOMERULAR FILTRATION RATE > 60.0 (>58); GLUCOSE, FASTING 103 MG/DL (70-100); POTASSIUM SERUM 3.4 MEQ/L (3.5-5.1); SODIUM LEVEL 140 MEQ/L (136-145); TOTAL PROTEIN 6.2 GM/DL (6.4-8.2)
[2021-10-02] MEDS ORDERED: POTASSIUM CHLORIDE 10MEQ SR TABLET PO ONE (08:00)
[2021-10-02] MEDS: FOLIC ACID 1 MG TAB PO SCH (08:30)
[2021-10-02] MEDS: clonazePAM 1 MG TAB PO SCH ×3 (08:30→22:09)
[2021-10-02] MEDS: ENOXAPARIN 40MG/0.4ML SYRINGE (J1650 PER 10MG) SC SCH (08:31)
[2021-10-02] MEDS: DOCUSATE SODIUM 100MG CAPSULE PO SCH ×2 (08:31→22:06)
[2021-10-02] MEDS: ONDANSETRON 4MG/2ML VIAL IV PRN ×3 (08:54→22:05)
[2021-10-02] MEDS ORDERED: PERCOCET 5MG/325MG TAB PO PRN (12:40)
[2021-10-02] MEDS: MIRALAX *UNIT DOSE* 17GM PACKET PO SCH (13:05)
[2021-10-02] MEDS: SENNA 8.6 MG TAB (SENOKOT) PO SCH ×2 (13:06→22:06)
[2021-10-02 14:00] VITALS: BP 146/96
[2021-10-02] MEDS: PERCOCET 5MG/325MG TAB PO PRN ×2 (15:39→22:06)
[2021-10-02] MEDS: ACETAMINOPHEN TAB 650MG DOSE (2X325MG) PO PRN (16:36)
[2021-10-02 22:00] VITALS: BP 152/100
[2021-10-02] MEDS: traZODone 50 MG TAB PO SCH (22:06)
[2021-10-03] MEDS: PIPERACILLIN/TAZOBACTAM SOD 3.375 GM in D5W MINI-BAG PLUS 50 ML IV SCH ×3 (00:36→13:39)
[2021-10-03 00:38] VITALS: BP 135/86
[2021-10-03] MEDS: ONDANSETRON 4MG/2ML VIAL IV PRN ×3 (04:10→15:47)
[2021-10-03] MEDS: PERCOCET 5MG/325MG TAB PO PRN ×2 (04:10→10:12)
[2021-10-03 06:00] VITALS: BP 137/92
[2021-10-03 06:26] LABS: BASO % 0.4 % (0.0-1.0); EOS # 0.2 10^3/uL (0.0-0.5); EOS % 2.6 % (0.0-3.0); HEMATOCRIT 27.8 % (36.0-47.0); HEMOGLOBIN 9.5 g/dl (12.0-15.5); LYMPH # 0.9 10^3/uL (1.5-5.0); LYMPH % 12.3 % (24.0-44.0); MEAN CORPUSCULAR HEMOGLOBIN 29.1 pg (27.0-33.0); MEAN CORPUSCULAR HGB CONC 34.2 g/dl (32.0-36.5); MONO # 0.6 10^3/uL (0.0-0.8); MONO % 8.1 % (2.0-8.0); NEUTROPHILS # 5.6 10^3/uL (1.5-8.5); NEUTROPHILS % 75.9 % (36.0-66.0); PLATELET COUNT, AUTOMATED 160 10^3/uL (150-450); RED BLOOD COUNT 3.27 10^6/uL (4.00-5.40); WHITE BLOOD COUNT 7.3 10^3/uL (4.0-10.0)
[2021-10-03] MEDS: LEVOTHYROXINE 75MCG TABLET (0.075MG) PO SCH (06:40)
[2021-10-03 06:51] LABS: ALBUMIN 2.6 GM/DL (3.2-5.2); ALT/SGPT 19 U/L (12-78); BILIRUBIN,TOTAL 0.5 MG/DL (0.2-1.0); BLOOD UREA NITROGEN 5 MG/DL (7-18); CALCIUM LEVEL 8.1 MG/DL (8.5-10.1); CARBON DIOXIDE LEVEL 29 MEQ/L (21-32); CHLORIDE LEVEL 105 MEQ/L (98-107); CREATININE FOR GFR 0.51 MG/DL (0.55-1.30); GLOMERULAR FILTRATION RATE > 60.0 (>58); GLUCOSE, FASTING 112 MG/DL (70-100); POTASSIUM SERUM 3.1 MEQ/L (3.5-5.1); SODIUM LEVEL 140 MEQ/L (136-145); TOTAL PROTEIN 6.2 GM/DL (6.4-8.2)
[2021-10-03] MEDS ORDERED: POTASSIUM CHLORIDE 10MEQ SR TABLET PO ONE (07:25)
[2021-10-03] MEDS: FOLIC ACID 1 MG TAB PO SCH (08:16)
[2021-10-03] MEDS: SENNA 8.6 MG TAB (SENOKOT) PO SCH (08:18)
[2021-10-03] MEDS: DOCUSATE SODIUM 100MG CAPSULE PO SCH (08:18)
[2021-10-03] MEDS: clonazePAM 1 MG TAB PO SCH ×2 (08:19→15:48)
[2021-10-03] MEDS: ENOXAPARIN 40MG/0.4ML SYRINGE (J1650 PER 10MG) SC SCH (08:20)
[2021-10-03] MEDS: MIRALAX *UNIT DOSE* 17GM PACKET PO SCH (08:20)
[2021-10-03] MEDS ORDERED: ISOVUE-370 76% 100ML VIAL As Ordered ONE (09:43)
[2021-10-03 12:30] LABS: HEMATOCRIT 29.2 % (36.0-47.0); HEMOGLOBIN 10.1 g/dl (12.0-15.5)
[2021-10-03 14:00] VITALS: BP 154/86
[2021-10-03] MEDS ORDERED: PERCOCET PO (14:41)
[2021-10-03] MEDS ORDERED: MIRA1POW3 PO (14:41)
[2021-10-03] MEDS ORDERED: COLA100C5 PO (14:41)
[2021-10-03] MEDS ORDERED: AMOX875T2 PO (14:41)
[2021-10-03] MEDS ORDERED: SENN18TA PO (14:41)
[2021-10-03] MEDS ORDERED: ONDA-83 PO (14:41)
== END 2021-10-03 16:30 | disposition home or self-care (01) | DRG 439 ==
LOC: EDBD 09:55 → M ED 09:55 → M ED INP 14:01 → ENRESERV 14:54 → M MS5PR 16:00
PROVIDERS: ADMIT Family Medicine; ATTEND Family Medicine
DX: K85.90 Acute pancreatitis without necrosis or infection, unspecified (principal); D69.3 Immune thrombocytopenic purpura; J98.11 Atelectasis; I10 Essential (primary) hypertension; F41.9 Anxiety disorder, unspecified; F32.A Depression, unspecified; E03.9 Hypothyroidism, unspecified; Z90.49 Acquired absence of other specified parts of digestive tract; Z20.822 Contact with and (suspected) exposure to COVID-19; Z79.899 Other long term (current) drug therapy; Z91.040 Latex allergy status; E86.0 Dehydration; R07.89 Other chest pain; E83.52 Hypercalcemia; D72.829 Elevated white blood cell count, unspecified; D64.9 Anemia, unspecified; K59.00 Constipation, unspecified; R09.02 Hypoxemia

== ENCOUNTER → 2022-01-27 | Outpatient (CLI) | payer OTHER ==
[~2022-01-27] MED LIST changes: +AMOX875T2 PO; +CLON1TAB8 PO; +COLA100C5 PO; +CYAN100050 PO; +FENO67CA12 PO; +FOLI1TAB11 PO; +HYDR50TA70; +MIRA1POW3 PO; +ONDA-83 PO; +PERCOCET PO; +PRIL20TA2 PO
[2022-01-27 12:17] LABS: BASO % 0.6 % (0.0-1.0); EOS # 0.1 10^3/uL (0.0-0.5); EOS % 1.1 % (0.0-3.0); HEMATOCRIT 45.4 % (36.0-47.0); HEMOGLOBIN 15.4 g/dl (12.0-15.5); LYMPH # 1.3 10^3/uL (1.5-5.0); MEAN CORPUSCULAR HEMOGLOBIN 30.9 pg (27.0-33.0); MEAN CORPUSCULAR HGB CONC 33.9 g/dl (32.0-36.5); MONO # 0.6 10^3/uL (0.0-0.8); MONO % 9.1 % (2.0-8.0); NEUTROPHILS # 4.3 10^3/uL (1.5-8.5); NEUTROPHILS % 68.4 % (36.0-66.0); PLATELET COUNT, AUTOMATED 111 10^3/uL (150-450); RED BLOOD COUNT 4.99 10^6/uL (4.00-5.40); WHITE BLOOD COUNT 6.2 10^3/uL (4.0-10.0)
[2022-01-27 12:21] LABS: APPEARANCE, URINE HAZY (CLEAR); BACTERIA, URINE AUTO 1+ (NEGATIVE); BILIRUBIN, URINE AUTO NEGATIVE (NEGATIVE); BLOOD, URINE BLOOD NEGATIVE (NEGATIVE); COLOR, URINE AMBER (YELLOW); GLUCOSE, URINE (UA) AUTO NEGATIVE (NEGATIVE); KETONE, URINE AUTO NEGATIVE (NEGATIVE); LEUKOCYTE ESTERASE, URINE AUTO NEGATIVE (NEGATIVE); MUCUS, URINE SMALL (NEGATIVE); NITRITE, URINE AUTO NEGATIVE (NEGATIVE); PROTEIN, URINE AUTO NEGATIVE (NEGATIVE); RBC, URINE AUTO 1 /HPF (0-3); SPECIFIC GRAVITY URINE AUTO 1.014 (1.002-1.035); SQUAMOUS EPITHELIAL CELL UR AU 12 /HPF (0-6); UROBILINOGEN, URINE AUTO 0.2 mg/dL (0.0-2.0); WBC, URINE AUTO 3 /HPF (0-3)
[2022-01-27 13:26] LABS: ALBUMIN 4.1 GM/DL (3.2-5.2); ALT/SGPT 91 U/L (12-78); AMYLASE 26 U/L (25-115); BILIRUBIN,TOTAL 0.7 MG/DL (0.2-1.0); BLOOD UREA NITROGEN 7 MG/DL (7-18); CALCIUM LEVEL 9.4 MG/DL (8.5-10.1); CARBON DIOXIDE LEVEL 25 MEQ/L (21-32); CHLORIDE LEVEL 106 MEQ/L (98-107); CHOLESTEROL LEVEL 171 MG/DL (<200); CHOLESTEROL RISK RATIO 4.384 (<5); CREATININE FOR GFR 0.78 MG/DL (0.55-1.30); FERRITIN 111 NG/ML (8-252); FREE T4 1.05 NG/DL (0.76-1.46); GLOMERULAR FILTRATION RATE > 60.0 (>58); GLUCOSE, FASTING 105 MG/DL (70-100); HDL CHOLESTEROL 39 MG/DL (>40); HEMOGLOBIN A1c 5.1 %; IRON (FE) 246 UG/DL (50-170); LDL CHOLESTEROL 105 MG/DL (<100); LIPASE 25 U/L (73-393); MAGNESIUM LEVEL 1.5 MG/DL (1.8-2.4); NON-HDL-C 132 MG/DL; PERCENT SATURATION 56.6 % (13.2-45.0); PHOSPHORUS LEVEL 2.4 MG/DL (2.5-4.9); POTASSIUM SERUM 4.1 MEQ/L (3.5-5.1); SODIUM LEVEL 138 MEQ/L (136-145); TOTAL IRON BINDING CAPACITY 435 UG/DL (250-450); TOTAL PROTEIN 7.2 GM/DL (6.4-8.2); TRIGLYCERIDES LEVEL 137 MG/DL (<150)
[2022-01-27 13:52] LABS: FOLATE 10.5 NG/ML (>5.4); TOTAL 25(OH) VITAMIN D 40.8 NG/ML (30.0-100.0); VITAMIN B12 LEVEL 438 PG/ML (247-911)
== END ==
LOC: M WUC 09:27
PROVIDERS: ATTEND Physician Assistant
DX: I10 Essential (primary) hypertension (principal); K85.90 Acute pancreatitis without necrosis or infection, unspecified; E78.5 Hyperlipidemia, unspecified; E53.8 Deficiency of other specified B group vitamins; E55.9 Vitamin D deficiency, unspecified; D69.3 Immune thrombocytopenic purpura

== ENCOUNTER 2022-03-26 09:35 | Observation (INO) | payer MEDICAID, OTHER, SELFPAY ==
[~2022-03-26] VITALS: Ht 172.7 cm; Wt 97.1 kg
[2022-03-26 10:30] LABS: BASO % 0.6 % (0.0-1.0); EOS # 0.1 10^3/uL (0.0-0.5); EOS % 1.9 % (0.0-3.0); HEMATOCRIT 42.6 % (36.0-47.0); HEMOGLOBIN 14.4 g/dl (12.0-15.5); LYMPH # 1.6 10^3/uL (1.5-5.0); LYMPH % 25.1 % (24.0-44.0); MEAN CORPUSCULAR HEMOGLOBIN 30.8 pg (27.0-33.0); MEAN CORPUSCULAR HGB CONC 33.8 g/dl (32.0-36.5); MONO # 0.5 10^3/uL (0.0-0.8); MONO % 8.6 % (2.0-8.0); NEUTROPHILS % 63.3 % (36.0-66.0); RED BLOOD COUNT 4.68 10^6/uL (4.00-5.40); WHITE BLOOD COUNT 6.3 10^3/uL (4.0-10.0)
[2022-03-26 10:48] LABS: PLATELET COUNT, AUTOMATED 109 10^3/uL (150-450)
[2022-03-26 10:55] LABS: HCG, SERUM QUALITATIVE NEGATIVE (NEGATIVE)
[2022-03-26 11:05] LABS: ALBUMIN 3.8 GM/DL (3.2-5.2); ALT/SGPT 57 U/L (12-78); BILIRUBIN,DIRECT 0.2 MG/DL (0.0-0.2); BILIRUBIN,TOTAL 0.3 MG/DL (0.2-1.0); BLOOD UREA NITROGEN 10 MG/DL (7-18); CALCIUM LEVEL 8.7 MG/DL (8.5-10.1); CARBON DIOXIDE LEVEL 22 MEQ/L (21-32); CHLORIDE LEVEL 103 MEQ/L (98-107); CREATININE FOR GFR 0.57 MG/DL (0.55-1.30); GLOMERULAR FILTRATION RATE > 60.0 (>58); GLUCOSE, FASTING 128 MG/DL (70-100); POTASSIUM SERUM 3.4 MEQ/L (3.5-5.1); SODIUM LEVEL 134 MEQ/L (136-145); TOTAL PROTEIN 7.1 GM/DL (6.4-8.2)
[2022-03-26] MEDS ORDERED: ISOVUE-370 76% 100ML VIAL As Ordered ONE (12:19)
[2022-03-26] MEDS ORDERED: HEPARIN SOD (PORCINE) 5000UNITS/ML 1ML VIAL/SYRINGE IV ONE (14:20)
[2022-03-26] MEDS ORDERED: HEPARIN DRIP 25,000 UNITS in IV 1 EA IV SCH (14:20)
[2022-03-26] MEDS ORDERED: hydrALAZINE 20MG/ML 1ML VIAL (J0360 PER 20MG) IV ONE (14:20)
[2022-03-26 14:50] LABS: INR 0.92; PROTHROMBIN TIME 12.8 SECONDS (12.7-14.5)
[2022-03-26 14:51] LABS: PARTIAL THROMBOPLASTIN TIME 25.9 SECONDS (25.9-37.0)
[2022-03-26] MEDS ORDERED: clonazePAM 1 MG TAB PO ONE (14:55)
[2022-03-26 15:00] VITALS: BP 176/117
[2022-03-26 15:24] LABS: CK-MB VALUE MASS < 1.0 NG/ML (<3.6); CPK CREATINE PHOSPHOKINASE 160 U/L (26-192); MB/CK RELATIVE INDEX 0.62 (< OR =4)
[2022-03-26 15:35] LABS: RSV AMPLIFICATION NEGATIVE (NEGATIVE)
[2022-03-26] MEDS ORDERED: hydrALAZINE 20MG/ML 1ML VIAL (J0360 PER 20MG) IV PRN (16:15)
[2022-03-26] MEDS ORDERED: ACETAMINOPHEN TAB 650MG DOSE (2X325MG) PO PRN (16:15)
[2022-03-26] MEDS ORDERED: POTASSIUM CHLORIDE 10MEQ SR TABLET PO ONE (16:25)
[2022-03-26] MEDS ORDERED: LISI30TA4 PO (16:44)
[2022-03-26] MEDS ORDERED: HOME MED LIST COMPLETE! XX SCH (16:45)
[2022-03-26] MEDS ORDERED: KETOROLAC 30 MG/ML 1ML VIAL IV ONE ×2 (16:50→23:30)
[2022-03-26] MEDS ORDERED: OMEPRAZOLE 20MG CAP PO PRN (16:50)
[2022-03-26] MEDS ORDERED: LEVALBUTEROL 1.25 MG/0.5 ML CONCENTRATE NEB NEB PRN (16:50)
[2022-03-26] MEDS ORDERED: APIXABAN 5 MG TAB (ELIQUIS) PO ONE (17:00)
[2022-03-26] MEDS ORDERED: LORazepam 2 MG/ML VIAL IV STA (17:38)
[2022-03-26] MEDS: NS 1,000 ML IV SCH (17:58)
[2022-03-26 21:00] VITALS: BP 132/93
[2022-03-26] MEDS: traZODone 50 MG TAB PO SCH (21:39)
[2022-03-26] MEDS: clonazePAM 1 MG TAB PO SCH (21:39)
[2022-03-26 22:39] VITALS: BP 137/69
[2022-03-27] VITALS (20 sets, daily range): BP systolic 72–126; BP diastolic 43–73
[2022-03-27] MEDS ORDERED: NS 500 ML IV ONE ×2 (04:45→05:05)
[2022-03-27 05:12] LABS: HEMATOCRIT 35.4 % (36.0-47.0); MEAN CORPUSCULAR HEMOGLOBIN 32.3 pg (27.0-33.0); MEAN CORPUSCULAR VOLUME 92.2 fl (80.0-96.0); PLATELET COUNT, AUTOMATED 115 10^3/uL (150-450); RED BLOOD COUNT 3.84 10^6/uL (4.00-5.40); WHITE BLOOD COUNT 3.3 10^3/uL (4.0-10.0)
[2022-03-27 05:13] LABS: HEMOGLOBIN 12.4 g/dl (12.0-15.5)
[2022-03-27] MEDS: NS 1,000 ML IV SCH ×2 (05:19→16:35)
[2022-03-27] MEDS: LEVOTHYROXINE 75MCG TABLET (0.075MG) PO SCH (05:19)
[2022-03-27 06:03] LABS: BLOOD UREA NITROGEN 13 MG/DL (7-18); CALCIUM LEVEL 7.9 MG/DL (8.5-10.1); CARBON DIOXIDE LEVEL 25 MEQ/L (21-32); CHLORIDE LEVEL 108 MEQ/L (98-107); GLOMERULAR FILTRATION RATE > 60.0 (>58); GLUCOSE, FASTING 124 MG/DL (70-100); POTASSIUM SERUM 3.6 MEQ/L (3.5-5.1); SODIUM LEVEL 139 MEQ/L (136-145)
[2022-03-27 06:04] LABS: ALBUMIN 3.1 GM/DL (3.2-5.2); ALT/SGPT 47 U/L (12-78); BILIRUBIN,TOTAL 0.5 MG/DL (0.2-1.0); TOTAL PROTEIN 5.7 GM/DL (6.4-8.2)
[2022-03-27] MEDS ORDERED: NS 1,000 ML IV ONE (07:15)
[2022-03-27] MEDS: clonazePAM 1 MG TAB PO SCH ×3 (08:12→20:21)
[2022-03-27] MEDS: APIXABAN 5 MG TAB (ELIQUIS) PO SCH ×2 (08:12→20:21)
[2022-03-27] MEDS: traZODone 50 MG TAB PO SCH (20:20)
[2022-03-28] VITALS: BP 118/63
[2022-03-28 04:00] VITALS: BP 120/61
[2022-03-28] MEDS: NS 1,000 ML IV SCH (04:05)
[2022-03-28 05:11] LABS: HEMATOCRIT 34.5 % (36.0-47.0); HEMOGLOBIN 11.6 g/dl (12.0-15.5); MEAN CORPUSCULAR HEMOGLOBIN 30.9 pg (27.0-33.0); MEAN CORPUSCULAR HGB CONC 33.6 g/dl (32.0-36.5); RED BLOOD COUNT 3.75 10^6/uL (4.00-5.40); WHITE BLOOD COUNT 3.2 10^3/uL (4.0-10.0)
[2022-03-28 05:17] LABS: PLATELET COUNT, AUTOMATED 87 10^3/uL (150-450)
[2022-03-28] MEDS: LEVOTHYROXINE 75MCG TABLET (0.075MG) PO SCH (05:34)
[2022-03-28 06:10] LABS: ALBUMIN 2.8 GM/DL (3.2-5.2); ALT/SGPT 40 U/L (12-78); BILIRUBIN,TOTAL 0.3 MG/DL (0.2-1.0); BLOOD UREA NITROGEN 8 MG/DL (7-18); CALCIUM LEVEL 7.5 MG/DL (8.5-10.1); CARBON DIOXIDE LEVEL 23 MEQ/L (21-32); CHLORIDE LEVEL 111 MEQ/L (98-107); CREATININE FOR GFR 0.52 MG/DL (0.55-1.30); GLOMERULAR FILTRATION RATE > 60.0 (>58); GLUCOSE, FASTING 105 MG/DL (70-100); POTASSIUM SERUM 3.6 MEQ/L (3.5-5.1); SODIUM LEVEL 138 MEQ/L (136-145); TOTAL PROTEIN 5.5 GM/DL (6.4-8.2)
[2022-03-28] MEDS ORDERED: ACET1TAB55 PO (07:00)
[2022-03-28] MEDS ORDERED: ELIQ5TAB PO (07:00)
[2022-03-28] MEDS ORDERED: PROAAER10 INH (07:00)
[2022-03-28 08:00] VITALS: BP 118/63
[2022-03-28] MEDS: clonazePAM 1 MG TAB PO SCH (08:08)
[2022-03-28] MEDS: APIXABAN 5 MG TAB (ELIQUIS) PO SCH (08:08)
[2022-04-02] MEDS ORDERED: APIXABAN 5 MG TAB (ELIQUIS) PO SCH (21:00)
== END 2022-03-28 08:49 | disposition home or self-care (01) ==
LOC: M ED 09:35 → M ED INP 09:36 → M ICU 21:00
PROVIDERS: ADMIT Internal Medicine; ATTEND Internal Medicine
DX: I16.0 Hypertensive urgency (principal); I26.99 Other pulmonary embolism without acute cor pulmonale; U07.1 COVID-19; E87.6 Hypokalemia; E78.49 Other hyperlipidemia; K76.0 Fatty (change of) liver, not elsewhere classified; E03.9 Hypothyroidism, unspecified; K21.9 Gastro-esophageal reflux disease without esophagitis; F41.9 Anxiety disorder, unspecified; Z79.01 Long term (current) use of anticoagulants; Z79.899 Other long term (current) drug therapy; Z91.040 Latex allergy status
CPT/HCPCS: 36415; 71045; 71275; 80048; 80053; 80076; 82550; 82553; 84703; 85025; 85027; 85049; 85055; 85610; 85730; 87631; 93005; 93970; 96361; 96365; 96366; 96375; 96376; 99285; J0360; J1644; J1885; J2060; Q9967

== ENCOUNTER → 2022-04-22 | Outpatient (REF) | payer OTHER ==
[~2022-04-22] MED LIST changes: +ACET1TAB55 PO; +ELIQ5TAB PO; +LISI30TA4 PO; +PROAAER10 INH
[2022-04-23 10:15] LABS: APPEARANCE, URINE MANUAL HAZY (CLEAR); COLOR, URINE MANUAL YELLOW (YELLOW)
[2022-04-23 10:18] LABS: BILIRUBIN, URINE MANUAL NEGATIVE (NEGATIVE); BLOOD URINE MANUAL NEGATIVE (NEGATIVE); GLUCOSE, URINE (UA) MANUAL NEGATIVE (NEGATIVE); KETONE, URINE MANUAL NEGATIVE (NEGATIVE); LEUKOCYTE ESTERASE, URINE MAN POSITIVE (NEGATIVE); NITRITE, URINE MANUAL POSITIVE (NEGATIVE); PROTEIN, URINE MANUAL NEGATIVE (NEGATIVE); SPECIFIC GRAVITY,URINE MANUAL 1.005 (1.002-1.035); UROBILINOGEN, URINE MANUAL NORMAL (NORMAL)
[2022-04-23 10:27] LABS: BACTERIA, URINE LARGE AMOUNT; SQUAMOUS EPITHELIAL CELL URINE MOD AMOUNT /hpf (SMALL AMT)
[2022-04-23 10:28] LABS: HYALINE CAST, URINE NONE SEEN /lpf (0-1); RBC, URINE NONE SEEN /hpf (0-3)
== END ==
LOC: M LAB REF 09:14
PROVIDERS: ATTEND Physician Assistant Medical
DX: N39.0 Urinary tract infection, site not specified (principal)

== ENCOUNTER 2022-11-04 13:48 | Emergency (ER) | payer MEDICAID, OTHER ==
[~2022-11-04] VITALS: Ht 172.7 cm; Wt 94.6 kg
[~2022-11-04 13:48] MED LIST changes: -FENO67CA12 PO; +FENO67CA16 PO
[2022-11-04 14:04] VITALS: BP 109/71
[2022-11-04] MEDS ORDERED: WELLTAB38 PO (14:15)
[2022-11-04] MEDS ORDERED: NS 1,000 ML IV SCH (14:15)
[2022-11-04 14:52] LABS: BASO # 0.1 10^3/uL (0.0-0.2); BASO % 1.1 % (0.0-1.0); EOS # 0.1 10^3/uL (0.0-0.5); EOS % 1.1 % (0.0-3.0); HEMATOCRIT 40.1 % (36.0-47.0); HEMOGLOBIN 13.8 g/dl (12.0-15.5); LYMPH # 1.6 10^3/uL (1.5-5.0); LYMPH % 36.3 % (24.0-44.0); MEAN CORPUSCULAR HEMOGLOBIN 30.4 pg (27.0-33.0); MEAN CORPUSCULAR HGB CONC 34.4 g/dl (32.0-36.5); MEAN CORPUSCULAR VOLUME 88.3 fl (80.0-96.0); MONO # 0.4 10^3/uL (0.0-0.8); MONO % 9.2 % (2.0-8.0); NEUTROPHILS # 2.3 10^3/uL (1.5-8.5); NEUTROPHILS % 51.4 % (36.0-66.0); PLATELET COUNT, AUTOMATED 124 10^3/uL (150-450); RED BLOOD COUNT 4.54 10^6/uL (4.00-5.40); WHITE BLOOD COUNT 4.5 10^3/uL (4.0-10.0)
[2022-11-04 15:09] LABS: CK-MB VALUE MASS < 1.0 NG/ML (<3.6)
[2022-11-04 15:11] LABS: BLOOD UREA NITROGEN 11 MG/DL (9-23); CARBON DIOXIDE LEVEL 25 MMOL/L (20-31); CHLORIDE LEVEL 108 MMOL/L (98-107); CREATININE FOR GFR 0.61 MG/DL (0.55-1.30); GLOMERULAR FILTRATION RATE > 60.0 (>58); GLUCOSE, FASTING 82 MG/DL (60-100); POTASSIUM SERUM 3.9 MMOL/L (3.5-5.1); SODIUM LEVEL 142 MMOL/L (136-145)
[2022-11-04] MEDS ORDERED: ISOVUE-370 76% 100ML VIAL As Ordered ONE (15:14)
[2022-11-04 15:15] LABS: INR 0.99; PROTHROMBIN TIME 13.3 SECONDS (12.5-14.5)
[2022-11-04 15:16] LABS: PARTIAL THROMBOPLASTIN TIME 26.8 SECONDS (24.8-34.2)
[2022-11-04 15:20] LABS: CPK CREATINE PHOSPHOKINASE 52 U/L (34-145); MB/CK RELATIVE INDEX 1.92 (< OR =4)
[2022-11-04 16:08] LABS: CK-MB VALUE MASS < 1.0 NG/ML (<3.6)
[2022-11-04 16:22] LABS: CPK CREATINE PHOSPHOKINASE 45 U/L (34-145); MB/CK RELATIVE INDEX 2.22 (< OR =4)
[2022-11-04 17:09] LABS: VENOUS BASE EXCESS -2.8 (-2.0-2.0); VENOUS HCO3 23.1 MMOL/L (23.0-27.0); VENOUS O2 SATURATION 92.2 % (60.0-80.0); VENOUS PARTIAL PRESSURE CO2 44.3 mmHg (38.0-50.0); VENOUS PARTIAL PRESSURE O2 70.9 mmHg (30.0-50.0); VENOUS PH 7.336 UNITS (7.330-7.430); VENOUS STANDARD HCO3 22.1 MMOL/L; VENOUS TOTAL CO2 24.5 MMOL/L (24.0-28.0)
[2022-11-04 17:50] LABS: AMPHETAMINES LEVEL URINE NEGATIVE (NEGATIVE); BARBITURATES URINE NEGATIVE (NEGATIVE); BENZODIAZEPINES URINE NEGATIVE (NEGATIVE); COCAINE METABOLITE URINE NEGATIVE (NEGATIVE); METHADONE URINE NEGATIVE (NEGATIVE); OPIATES URINE NEGATIVE (NEGATIVE); PHENCYCLIDINE URINE NEGATIVE (NEGATIVE)
[2022-11-04 17:53] LABS: CANNABINOIDS URINE POSITIVE (NEGATIVE)
[2022-11-04] MEDS ORDERED: BUPR-70 PO (19:10)
[2022-11-04] MEDS ORDERED: HOME MED LIST COMPLETE! XX SCH (19:10)
[2022-11-04] MEDS ORDERED: FLUO20CA22 PO (19:10)
[2022-11-04 20:00] LABS: LIPASE 19 U/L (12-53)
[2022-11-04 20:02] LABS: ALKALINE PHOSPHATASE 65 U/L (46-116); ALT/SGPT 54 U/L (7.0-40); AST/SGOT 55 U/L (<34); BILIRUBIN,DIRECT 0.2 MG/DL (<0.4); BILIRUBIN,TOTAL 0.4 MG/DL (0.3-1.2); TOTAL PROTEIN 7.1 G/DL (5.7-8.2)
[2022-11-04 20:08] LABS: APPEARANCE, URINE HAZY (CLEAR); BACTERIA, URINE AUTO NEGATIVE (NEGATIVE); BILIRUBIN, URINE AUTO NEGATIVE (NEGATIVE); BLOOD, URINE BLOOD NEGATIVE (NEGATIVE); COLOR, URINE YELLOW (YELLOW); GLUCOSE, URINE (UA) AUTO NEGATIVE (NEGATIVE); KETONE, URINE AUTO NEGATIVE (NEGATIVE); LEUKOCYTE ESTERASE, URINE AUTO TRACE (NEGATIVE); NITRITE, URINE AUTO NEGATIVE (NEGATIVE); PROTEIN, URINE AUTO NEGATIVE (NEGATIVE); RBC, URINE AUTO 0 /HPF (0-3); SPECIFIC GRAVITY URINE AUTO 1.008 (1.002-1.035); SQUAMOUS EPITHELIAL CELL UR AU 9 /HPF (0-6); UROBILINOGEN, URINE AUTO 0.2 mg/dL (0.0-2.0); WBC, URINE AUTO 3 /HPF (0-3)
[2022-11-04 20:37] VITALS: O2SAT 98
[2022-11-04] MEDS ORDERED: BENZONATATE 100MG CAPSULE PO ONE (20:45)
[2022-11-04] MEDS ORDERED: ALBUTEROL SULFATE 2.5MG/0.5ML INH NEB SOLN NEB ONE (20:45)
[2022-11-04] MEDS ORDERED: BENZ200C70 PO (22:22)
[2022-11-04] MEDS ORDERED: ALBUTEROL 90 MCG/ACT 8GM HFA INHALER INH ONE (22:25)
== END 2022-11-04 22:45 | disposition left against medical advice (07) ==
LOC: M ED 13:48 → EDBD 13:48 → M ED 22:45
DX: G93.41 Metabolic encephalopathy (principal); R06.02 Shortness of breath; J06.9 Acute upper respiratory infection, unspecified; D69.3 Immune thrombocytopenic purpura; E03.9 Hypothyroidism, unspecified; I49.3 Ventricular premature depolarization; Z91.040 Latex allergy status; Z79.899 Other long term (current) drug therapy
CPT/HCPCS: 36415; 70450; 71045; 71275; 80048; 80076; 80307; 81001; 82077; 82140; 82550; 82553; 82803; 83690; 84702; 85025; 85610; 85730; 87486; 87581; 87633; 87798; 93005; 93041; 94640; 94760; 96360; 96361; 99285; Q9967

== ENCOUNTER 2022-11-10 09:40 | Emergency (ER) | payer OTHER ==
[~2022-11-10] VITALS: Ht 175.3 cm; Wt 100.8 kg
[~2022-11-10 09:40] MED LIST changes: +BENZ200C70 PO; +BUPR-70 PO; +FLUO20CA22 PO; +WELLTAB38 PO
[2022-11-10 09:41] VITALS: BP 138/90
[2022-11-10] MEDS ORDERED: IBUP200C25 PO (09:50)
[2022-11-10 11:31] LABS: BASO % 0.4 % (0.0-1.0); EOS # 0.1 10^3/uL (0.0-0.5); EOS % 1.1 % (0.0-3.0); HEMATOCRIT 38.3 % (36.0-47.0); HEMOGLOBIN 13.4 g/dl (12.0-15.5); LYMPH # 1.2 10^3/uL (1.5-5.0); LYMPH % 15.5 % (24.0-44.0); MEAN CORPUSCULAR HEMOGLOBIN 30.9 pg (27.0-33.0); MEAN CORPUSCULAR VOLUME 88.5 fl (80.0-96.0); MONO # 0.6 10^3/uL (0.0-0.8); MONO % 7.4 % (2.0-8.0); NEUTROPHILS # 5.7 10^3/uL (1.5-8.5); NEUTROPHILS % 75.1 % (36.0-66.0); PLATELET COUNT, AUTOMATED 117 10^3/uL (150-450); RED BLOOD COUNT 4.33 10^6/uL (4.00-5.40); WHITE BLOOD COUNT 7.5 10^3/uL (4.0-10.0)
[2022-11-10] MEDS ORDERED: METOCLOPRAMIDE INJ 10MG/2ML VIAL IV ONE (11:35)
[2022-11-10] MEDS ORDERED: NS 1,000 ML IV ONE (11:35)
[2022-11-10] MEDS ORDERED: KETOROLAC 30 MG/ML 1ML VIAL IV ONE (11:35)
[2022-11-10 11:49] LABS: ALBUMIN 3.9 G/DL (3.2-5.2); ALKALINE PHOSPHATASE 83 U/L (46-116); ALT/SGPT 29 U/L (7.0-40); AST/SGOT 30 U/L (<34); BILIRUBIN,DIRECT 0.2 MG/DL (<0.4); BILIRUBIN,TOTAL 0.4 MG/DL (0.3-1.2); BLOOD UREA NITROGEN 9 MG/DL (9-23); CALCIUM LEVEL 8.7 MG/DL (8.5-10.1); CARBON DIOXIDE LEVEL 29 MMOL/L (20-31); CHLORIDE LEVEL 104 MMOL/L (98-107); CREATININE FOR GFR 0.61 MG/DL (0.55-1.30); GLOMERULAR FILTRATION RATE > 60.0 (>58); GLUCOSE, FASTING 102 MG/DL (60-100); POTASSIUM SERUM 3.8 MMOL/L (3.5-5.1); SODIUM LEVEL 135 MMOL/L (136-145)
[2022-11-10 13:19] LABS: VENOUS BASE EXCESS -1.1 (-2.0-2.0); VENOUS HCO3 25.6 MMOL/L (23.0-27.0); VENOUS O2 SATURATION 85.7 % (60.0-80.0); VENOUS PARTIAL PRESSURE CO2 50.4 mmHg (38.0-50.0); VENOUS PARTIAL PRESSURE O2 54.7 mmHg (30.0-50.0); VENOUS PH 7.323 UNITS (7.330-7.430); VENOUS STANDARD HCO3 23.3 MMOL/L; VENOUS TOTAL CO2 27.1 MMOL/L (24.0-28.0)
[2022-11-10 13:21] LABS: THYROID STIMULATING HORMONE 1.632 uIU/ML (0.55-4.78); THYROXINE (T4) 10.6 UG/DL (4.5-10.9)
[2022-11-10 13:22] LABS: FREE THYROXINE INDEX 3.2 % (1.3-4.8); T UPTAKE 30.6 % (22.5-37.0)
[2022-11-10] MEDS ORDERED: MACR100C43 PO (14:33)
== END 2022-11-10 14:53 | disposition home or self-care (01) ==
LOC: M ED 09:40
DX: R53.83 Other fatigue (principal); R05.9 Cough, unspecified; R51.9 Headache, unspecified; N39.0 Urinary tract infection, site not specified; I10 Essential (primary) hypertension; K21.9 Gastro-esophageal reflux disease without esophagitis; E03.9 Hypothyroidism, unspecified; Z87.442 Personal history of urinary calculi; Z86.711 Personal history of pulmonary embolism; Z79.899 Other long term (current) drug therapy; Z91.040 Latex allergy status
CPT/HCPCS: 70450; 71046; 80048; 80076; 81001; 82140; 82803; 84436; 84443; 84479; 85025; 87088; 87186; 96374; 96375; 99283; J1100; J1885; J2765

== ENCOUNTER → 2023-02-23 | Outpatient (REF) | payer OTHER ==
[~2023-02-23] MED LIST changes: +CYAN-1 PO; -CYAN100050 PO; +IBUP200C25 PO; +MACR100C43 PO; +SENN-111 PO; -SENN18TA PO
[2023-02-23 17:19] LABS: APPEARANCE, URINE CLOUDY (CLEAR); BACTERIA, URINE AUTO 1+ (NEGATIVE); BILIRUBIN, URINE AUTO NEGATIVE (NEGATIVE); BLOOD, URINE BLOOD 1+ (NEGATIVE); COLOR, URINE AMBER (YELLOW); GLUCOSE, URINE (UA) AUTO NEGATIVE (NEGATIVE); KETONE, URINE AUTO NEGATIVE (NEGATIVE); LEUKOCYTE ESTERASE, URINE AUTO 3+ (NEGATIVE); NITRITE, URINE AUTO NEGATIVE (NEGATIVE); PROTEIN, URINE AUTO 1+ mg/dL (NEGATIVE); RBC, URINE AUTO 21 /HPF (0-3); SPECIFIC GRAVITY URINE AUTO 1.016 (1.002-1.035); SQUAMOUS EPITHELIAL CELL UR AU 1 /HPF (0-6); WBC, URINE AUTO TNTC /HPF (0-3)
== END ==
LOC: M LAB REF 16:24
PROVIDERS: ATTEND Physician Assistant Medical
DX: N39.0 Urinary tract infection, site not specified (principal)

== ENCOUNTER 2023-04-07 18:06 | Emergency (ER) | payer OTHER ==
[~2023-04-07] VITALS: Ht 172.7 cm; Wt 81.8 kg
[2023-04-07 19:13] LABS: BASO % 0.4 % (0.0-1.0); EOS % 0.1 % (0.0-3.0); HEMATOCRIT 48.4 % (36.0-47.0); HEMOGLOBIN 17.2 g/dl (12.0-15.5); LYMPH # 0.9 10^3/uL (1.5-5.0); MEAN CORPUSCULAR HGB CONC 35.5 g/dl (32.0-36.5); MEAN CORPUSCULAR VOLUME 84.5 fl (80.0-96.0); MONO # 0.6 10^3/uL (0.0-0.8); MONO % 6.7 % (2.0-8.0); NEUTROPHILS # 7.8 10^3/uL (1.5-8.5); NEUTROPHILS % 83.4 % (36.0-66.0); PLATELET COUNT, AUTOMATED 285 10^3/uL (150-450); RED BLOOD COUNT 5.73 10^6/uL (4.00-5.40); WHITE BLOOD COUNT 9.4 10^3/uL (4.0-10.0)
[2023-04-07 19:42] LABS: ALBUMIN 4.5 G/DL (3.2-5.2); ALKALINE PHOSPHATASE 73 U/L (46-116); ALT/SGPT 393 U/L (7.0-40); AST/SGOT 292 U/L (<34); BILIRUBIN,DIRECT 0.3 MG/DL (<0.4); BILIRUBIN,TOTAL 1.1 MG/DL (0.3-1.2); BLOOD UREA NITROGEN 13 MG/DL (9-23); CALCIUM LEVEL 9.4 MG/DL (8.5-10.1); CARBON DIOXIDE LEVEL 22 MMOL/L (20-31); CHLORIDE LEVEL 102 MMOL/L (98-107); CREATININE FOR GFR 0.55 MG/DL (0.55-1.30); GLOMERULAR FILTRATION RATE > 60.0 (>58); GLUCOSE, FASTING 126 MG/DL (60-100); LIPASE 27 U/L (12-53); POTASSIUM SERUM 5.1 MMOL/L (3.5-5.1); SODIUM LEVEL 136 MMOL/L (136-145); TOTAL PROTEIN 7.9 G/DL (5.7-8.2)
[2023-04-07 19:48] LABS: HCG, SERUM QUALITATIVE NEGATIVE (NEGATIVE)
[2023-04-07] MEDS ORDERED: ISOVUE-370 76% 100ML VIAL As Ordered ONE (21:05)
[2023-04-07] MEDS ORDERED: ONDANSETRON 4MG 2ML VIAL IV ONE (21:05)
[2023-04-07] MEDS: fentaNYL 100 MCG/2 ML INJECTION IV PRN ×2 (21:16→21:56)
[2023-04-07] MEDS ORDERED: MORPHINE 4 MG/ML 1ML VIAL IV PRN (22:00)
[2023-04-07] MEDS ORDERED: PROMETHAZINE 25MG/ML 1ML VIAL IV ONE (22:00)
[2023-04-08] MEDS ORDERED: PROM25TA12 PO (00:36)
[2023-04-08] MEDS ORDERED: ONDA4TAB6 PO (00:36)
[2023-04-08 01:05] VITALS: BP 144/84; TEMP 98; O2SAT 100
== END 2023-04-08 01:30 | disposition home or self-care (01) ==
LOC: M ED 18:06
DX: A08.4 Viral intestinal infection, unspecified (principal); I10 Essential (primary) hypertension; E78.5 Hyperlipidemia, unspecified; K21.9 Gastro-esophageal reflux disease without esophagitis; Z91.040 Latex allergy status; Z79.811 Long term (current) use of aromatase inhibitors; Z79.83 Long term (current) use of bisphosphonates; Z79.899 Other long term (current) drug therapy
CPT/HCPCS: 74177; 76705; 80048; 80076; 83690; 84703; 85025; 87486; 87581; 87633; 87798; 93041; 96374; 96375; 96376; 99285; J2405; J2550; J3010; Q9967

== ENCOUNTER 2023-04-08 13:34 | Emergency (ER) | payer OTHER ==
[~2023-04-08] VITALS: Ht 172.7 cm; Wt 92.1 kg
[~2023-04-08 13:34] MED LIST changes: +PROM25TA12 PO
[2023-04-08] MEDS ORDERED: ONDANSETRON 4MG 2ML VIAL IV ONE (15:30)
[2023-04-08] MEDS ORDERED: NS 1,000 ML IV ONE ×2 (15:30→19:50)
[2023-04-08 15:47] LABS: INR 1.12; PROTHROMBIN TIME 14.1 SECONDS (12.5-14.5)
[2023-04-08 15:51] LABS: BASO % 0.3 % (0.0-1.0); EOS % 0.1 % (0.0-3.0); HEMATOCRIT 48.1 % (36.0-47.0); HEMOGLOBIN 16.5 g/dl (12.0-15.5); LYMPH % 9.5 % (24.0-44.0); MEAN CORPUSCULAR HEMOGLOBIN 29.4 pg (27.0-33.0); MEAN CORPUSCULAR HGB CONC 34.3 g/dl (32.0-36.5); MEAN CORPUSCULAR VOLUME 85.7 fl (80.0-96.0); MONO # 0.6 10^3/uL (0.0-0.8); MONO % 5.5 % (2.0-8.0); NEUTROPHILS # 9.2 10^3/uL (1.5-8.5); NEUTROPHILS % 84.2 % (36.0-66.0); PLATELET COUNT, AUTOMATED 343 10^3/uL (150-450); RED BLOOD COUNT 5.61 10^6/uL (4.00-5.40); WHITE BLOOD COUNT 10.9 10^3/uL (4.0-10.0)
[2023-04-08 15:53] LABS: LIPASE 21 U/L (12-53)
[2023-04-08 15:58] LABS: ALBUMIN 4.6 G/DL (3.2-5.2); ALKALINE PHOSPHATASE 82 U/L (46-116); ALT/SGPT 343 U/L (7.0-40); AST/SGOT 188 U/L (<34); BILIRUBIN,DIRECT 0.5 MG/DL (<0.4); BILIRUBIN,TOTAL 1.4 MG/DL (0.3-1.2); BLOOD UREA NITROGEN 16 MG/DL (9-23); CALCIUM LEVEL 9.6 MG/DL (8.5-10.1); CARBON DIOXIDE LEVEL 22 MMOL/L (20-31); CHLORIDE LEVEL 103 MMOL/L (98-107); CK-MB VALUE MASS < 1.0 NG/ML (<3.6); CPK CREATINE PHOSPHOKINASE 37 U/L (34-145); CREATININE FOR GFR 0.65 MG/DL (0.55-1.30); FREE T4 1.35 NG/DL (0.89-1.76); GLOMERULAR FILTRATION RATE > 60.0 (>58); GLUCOSE, FASTING 124 MG/DL (60-100); POTASSIUM SERUM 3.7 MMOL/L (3.5-5.1); SODIUM LEVEL 137 MMOL/L (136-145); TOTAL PROTEIN 7.9 G/DL (5.7-8.2)
[2023-04-08] MEDS ORDERED: KETOROLAC 30 MG/ML 1ML VIAL IV ONE (16:20)
[2023-04-08] MEDS ORDERED: PANTOPRAZOLE 40MG VIAL IV ONE (16:20)
[2023-04-08] MEDS ORDERED: HYOSCYAMINE SULFATE 0.125 MG SUBL TABLET SL ONE (16:20)
[2023-04-08] MEDS ORDERED: MAALOX 30 ML SUSP *UDC PO ONE (16:20)
[2023-04-08] MEDS ORDERED: PROMETHAZINE 25MG/ML 1ML VIAL IV ONE (16:20)
[2023-04-08 16:42] LABS: ETHYL ALCOHOL (ETHANOL) < 0.003 % (0.000-0.010)
[2023-04-08 16:43] LABS: ACETAMINOPHEN LEVEL < 2.0 UG/ML (10.0-20.0)
[2023-04-08 16:44] LABS: SALICYLATE LEVEL < 3.0 MG/DL (<30)
[2023-04-08 16:50] LABS: OSMOLALITY SERUM 282 MOSM/KG (275-295)
[2023-04-08 17:38] LABS: VENOUS BASE EXCESS -4.8 (-2.0-2.0); VENOUS HCO3 18.2 MMOL/L (23.0-27.0); VENOUS O2 SATURATION 98.7 % (60.0-80.0); VENOUS PARTIAL PRESSURE CO2 29.3 mmHg (38.0-50.0); VENOUS PARTIAL PRESSURE O2 137.6 mmHg (30.0-50.0); VENOUS STANDARD HCO3 20.6 MMOL/L; VENOUS TOTAL CO2 19.1 MMOL/L (24.0-28.0)
[2023-04-08 18:32] LABS: MONO SCRN NEGATIVE (NEGATIVE)
[2023-04-08] MEDS ORDERED: METOCLOPRAMIDE INJ 10MG/2ML VIAL IV ONE (18:45)
[2023-04-08 19:08] VITALS: BP 161/99; TEMP 97.8; O2SAT 100
[2023-04-08 19:21] LABS: HEPATITIS B CORE ANTIBODY IGM NEGATIVE (NEGATIVE); HEPATITIS C VIRUS ABY INDEX 0.05 INDEX (<0.8)
== END 2023-04-08 20:53 | disposition home or self-care (01) ==
LOC: M ED 13:34
DX: R10.9 Unspecified abdominal pain (principal); R11.10 Vomiting, unspecified; I10 Essential (primary) hypertension; K21.9 Gastro-esophageal reflux disease without esophagitis; F41.9 Anxiety disorder, unspecified; F32.A Depression, unspecified; Z87.442 Personal history of urinary calculi; Z79.811 Long term (current) use of aromatase inhibitors; Z79.899 Other long term (current) drug therapy; Z91.040 Latex allergy status; Z53.9 Procedure and treatment not carried out, unspecified reason
CPT/HCPCS: 71046; 80048; 80076; 80143; 81001; 82077; 82140; 82550; 82553; 82803; 83605; 83690; 83930; 84439; 84443; 85025; 85610; 85730; 86308; 86705; 86709; 86803; 87040; 87086; 87340; 87486; 87581; 87633; 87798; 93005; 96361; 96374; 96375; 99284; C9113; J1885; J2405; J2550; J2765

== ENCOUNTER 2023-06-14 20:54 | Emergency (ER) | payer OTHER ==
[2023-06-14 21:29] VITALS: BP 130/78; TEMP 97; O2SAT 97
[2023-06-14] MEDS ORDERED: ONDANSETRON 4MG ORAL DISINTEGRATING TAB PO ONE (22:00)
[2023-06-14] MEDS ORDERED: MORPHINE 4 MG/ML 1ML VIAL IM ONE (22:00)
[2023-06-15] MEDS ORDERED: ACETAMINOPHEN TAB 650MG DOSE (2X325MG) PO ONE (01:05)
[2023-06-15] MEDS ORDERED: NAPR-837 PO (01:06)
[2023-06-15] MEDS ORDERED: OFLO5DRO OU (01:06)
[2023-06-15] MEDS ORDERED: KETOROLAC TROMETHAMINE 10 MG TAB PO ONE (02:00)
== END 2023-06-15 01:56 | disposition home or self-care (01) ==
LOC: M ED 20:54
DX: S09.90XA Unspecified injury of head, initial encounter (principal); S60.212A Contusion of left wrist, initial encounter; W10.8XXA Fall (on) (from) other stairs and steps, initial encounter; E03.9 Hypothyroidism, unspecified; Z91.040 Latex allergy status; Z87.442 Personal history of urinary calculi; Y92.9 Unspecified place or not applicable; Y93.89 Activity, other specified; Y99.9 Unspecified external cause status

== ENCOUNTER 2024-05-25 02:28 | Emergency (ER) | payer OTHER ==
[~2024-05-25] VITALS: Ht 172.7 cm; Wt 82.7 kg
[~2024-05-25 02:28] MED LIST changes: +FLUO-365 PO; -FLUO20CA22 PO; -MIRA1POW3 PO; +MIRA33506 PO; +NAPR-1405 PO; +NAPR-837 PO; -NAPR500T6 PO; +OFLO5DRO OU; +ONDA-282 PO; -ONDA4TAB6 PO; -SENN-111 PO; +SENN-165 PO; -ZOLP6.2517 PO; +ZOLP6.2526 PO
[2024-05-25] MEDS: ONDANSETRON 4MG 2ML VIAL IV ONE ×2 (03:39→06:49)
[2024-05-25] MEDS: MORPHINE 4 MG/ML 1ML VIAL IV ONE (03:41)
[2024-05-25 03:54] LABS: BASO % 0.6 % (0.0-1.0); EOS # 0.1 10^3/uL (0.0-0.5); EOS % 1.5 % (0.0-3.0); HEMATOCRIT 38.8 % (36.0-47.0); HEMOGLOBIN 13.7 g/dl (12.0-15.5); LYMPH # 1.8 10^3/uL (1.5-5.0); LYMPH % 26.7 % (24.0-44.0); MEAN CORPUSCULAR HEMOGLOBIN 30.7 pg (27.0-33.0); MEAN CORPUSCULAR HGB CONC 35.3 g/dl (32.0-36.5); MONO # 0.5 10^3/uL (0.0-0.8); MONO % 6.8 % (2.0-8.0); NEUTROPHILS # 4.3 10^3/uL (1.5-8.5); NEUTROPHILS % 63.8 % (36.0-66.0); PLATELET COUNT, AUTOMATED 114 10^3/uL (150-450); RED BLOOD COUNT 4.46 10^6/uL (4.00-5.40); WHITE BLOOD COUNT 6.8 10^3/uL (4.0-10.0)
[2024-05-25] MEDS: diazePAM 10MG/2ML SYRINGE IV ONE (04:57)
[2024-05-25] MEDS: methylPREDNISolone 125MG 2ML VIAL IV ONE (06:48)
[2024-05-25] MEDS: PERCOCET 5MG/325MG TAB PO ONE (06:49)
[2024-05-25] MEDS: MORPHINE 2 MG/ML 1ML VIAL IV ONE (06:50)
[2024-05-25 07:11] VITALS: BP 127/85; TEMP 97.3; O2SAT 97
[2024-05-25] MEDS ORDERED: KETO10TAB PO (07:56)
== END 2024-05-25 08:00 | disposition home or self-care (01) ==
LOC: M ED 02:28 → EDBD 02:28 → M ED 08:00
DX: M54.50 Low back pain, unspecified (principal); I10 Essential (primary) hypertension; E07.9 Disorder of thyroid, unspecified; F41.9 Anxiety disorder, unspecified; F32.A Depression, unspecified; Z79.899 Other long term (current) drug therapy; Z91.040 Latex allergy status
CPT/HCPCS: 72128; 72131; 80047; 85025; 96374; 96375; 96376; 99284; J2405; J2919; J3360

== ENCOUNTER → 2024-09-04 | Outpatient (REF) ==
[~2024-09-04] MED LIST changes: +KETO10TAB PO
== END ==
LOC: M CFLAB 12:49
DX: N39.0 Urinary tract infection, site not specified (principal)